=== PATIENT | female | born 1945 | race Caucasian/White ===

== ENCOUNTER 2017-09-28 17:01 | Inpatient (IN) | payer MEDICARE, BC ==
[~2017-09-28] VITALS: Ht 156.2 cm; Wt 47.4 kg
--- NOTE | 2017-09-28 17:20 | PHYS DOC ---
Adult General HPI HPI Patient is a [age] year old [sex] who presents with [] Review of Systems Review of Systems Constitutional: Denies fever or chills [] Eyes: Denies change in visual acuity, redness, or eye pain [] HENT: Denies nasal congestion or sore throat [] Respiratory: Denies cough or shortness of breath [] Cardiovascular: No additional information not addressed in HPI [] GI: Denies abdominal pain, nausea, vomiting, bloody stools or diarrhea [] : Denies dysuria or hematuria [] Musculoskeletal: Denies back pain or joint pain [] Integument: Denies rash or skin lesions [] Neurologic: Denies headache, focal weakness or sensory changes [] Endocrine: Denies polyuria or polydipsia [] All other systems were reviewed and found to be within normal limits, except as documented in this note. Physical Exam Physical Exam Constitutional: Well developed, well nourished, no acute distress, non-toxic appearance. [] HENT: Normocephalic, atraumatic, bilateral external ears normal, oropharynx moist, no oral exudates, nose normal. [] Eyes: PERRLA, EOMI, conjunctiva normal, no discharge. [] Neck: Normal range of motion, no tenderness, supple, no stridor. [] Cardiovascular:Heart rate regular rhythm, no murmur [] Lungs & Thorax: Bilateral breath sounds clear to auscultation [] Abdomen: Bowel sounds normal, soft, no tenderness, no masses, no pulsatile masses. [] Skin: Warm, dry, no erythema, no rash. [] Back: No tenderness, no CVA tenderness. [] Extremities: No tenderness, no cyanosis, no clubbing, ROM intact, no edema. [] Neurologic: Alert and oriented X 3, normal motor function, normal sensory function, no focal deficits noted. [] Psychologic: Affect normal, judgement normal, mood normal. [] EKG EKG [] Radiology/Procedures Radiology/Procedures [] Course & Med Decision Making Course & Med Decision Making Pertinent Labs and Imaging studies reviewed. (See chart for details) [] Dragon Disclaimer Dragon Disclaimer This electronic medical record was generated, in whole or in part, using a voice recognition dictation system. Departure Departure: Referrals: PCP,UNKNOWN (PCP) CATERINA HOLBROOK MD Sep 28, 2017 17:19
[2017-09-28 18:07] LABS: BASO % 1 % (0-3); EOS % 1 % (0-3); HEMATOCRIT 38.8 % (36.0-47.0); LYMPH # 0.7 x10^3/uL (1.0-4.8); LYMPH % 19 % (24-48); MEAN CORPUSCULAR HEMOGLOBIN 34 pg (25-35); MEAN CORPUSCULAR HGB CONC 33 g/dL (31-37); MEAN CORPUSCULAR VOLUME 102 fL (79-100); MONO # 0.5 x10^3/uL (0.0-1.1); MONO % 13 % (0-9); NEUT # 2.4 x10^3uL (1.8-7.7); NEUT % 66 % (31-73); PLATELET COUNT 239 x10^3/uL (140-400); RED CELL DISTRIBUTION WIDTH 14.2 % (11.5-14.5); WHITE BLOOD COUNT 3.6 x10^3/uL (4.0-11.0)
[2017-09-28 18:16] LABS: ALBUMIN 3.8 g/dL (3.4-5.0); BILIRUBIN,URINE NEG (NEG); CALCIUM 9.2 mg/dL (8.5-10.1); CLARITY,URINE HAZY; COLOR,URINE YELLOW; CREATININE 0.6 mg/dL (0.6-1.0); GFR 98.3; GLUCOSE,URINE NEG (NEG); POTASSIUM 3.9 mmol/L (3.5-5.1); TOTAL BILIRUBIN 0.5 mg/dL (0.2-1.0); TOTAL PROTEIN 7.6 g/dL (6.4-8.2)
[2017-09-28 18:17] LABS: BACTERIA,URINE 0 /HPF (0-FEW); NITRITE,URINE NEG (NEG); SQUAMOUS EPITHELIAL CELL,UR FEW /LPF; UROBILINOGEN,URINE 0.2 mg/dL (0.2 mg/dL)
[2017-09-28 20:15] VITALS: BP 138/63
[2017-09-28] MEDS ORDERED: METHYL SALICYLATE/MENTHOL TOPICAL OINTMENT 29GM TUBE. TP PRN (20:45)
[2017-09-28] MEDS ORDERED: MAG HYDROX/AL HYDROX/SIMETH 30 ML ORAL.SUSP PO PRN (20:45)
[2017-09-28] MEDS ORDERED: POLY17PO5 PO (21:23)
[2017-09-28] MEDS ORDERED: POTA20TA4 PO (21:23)
[2017-09-28] MEDS ORDERED: SUCR1TAB PO (21:23)
[2017-09-28] MEDS ORDERED: CHLO1CAP PO (21:23)
[2017-09-28] MEDS ORDERED: ESCITALOPRAM OX20 MG PO (21:23)
[2017-09-28] MEDS ORDERED: MIRT15TA3 PO (21:23)
[2017-09-28] MEDS ORDERED: ALPR0.5T6 PO (21:23)
[2017-09-28] MEDS ORDERED: PANT40TA5 PO (21:23)
[2017-09-28] MEDS ORDERED: METO10TA81 PO (21:23)
[2017-09-28] MEDS ORDERED: OXYC5CAP PO (21:23)
[2017-09-28] MEDS: MAGNESIUM HYDROXIDE 2,400 MG/30 ML ORAL.SUSP. PO PRN (21:29)
[2017-09-28] MEDS: ACETAMINOPHEN 325 MG TABLET PO PRN (21:29)
[2017-09-28] MEDS: MIRTAZAPINE 15 MG TABLET PO SCH (22:18)
--- NOTE | 2017-09-29 00:23 | PHYS DOC ---
General Chief Complaint: MEDICAL CLEARANCE Stated Complaint: EVAL Time Seen by MD: 18:23 Source: patient, family Exam Limitations: no limitations Problems: History of Present Illness Initial Comments Patient signed out to me at 1800 shift change. Patient is a 72-year-old female who comes to the emergency department for medical clearance and [facility] admission. Patient states that she was seen by Dr. Peterson in his office earlier today and after discussion of patient's severe anxiety and need for medication changes and titrations the patient agreed to inpatient admission. She's been taking chlordiazepoxide, escitalopram, alprazolam, and mirtazapine reportedly not always as directed. In the emergency department and her only complaint is severe anxiety denies any physical complaints. Timing/Duration: other Severity: severe Modifying Factors: worse with medication Associated Symptoms: other Allergies: Coded Allergies: No Known Drug Allergies (Unverified , 09/28/17) Past Medical History Medical History: other (depression, GERD, anxiety, hypokalemia, chronic pain, constipation) Surgical History: noncontributory Social History Smoker: non-smoker Alcohol: none Drugs: none Review of Systems Constitutional: denies chills, denies fever Respiratory: denies cough, denies shortness of breath Cardiovascular: denies chest pain, denies syncope Gastrointestinal: see HPI, denies diarrhea, denies vomiting Genitourinary: denies dysuria, frequency, denies hematuria Musculoskeletal: see HPI Psychiatric/Neurological: see HPI Physical Exam General Appearance: WD/WN, no apparent distress Ear, Nose, Throat: hearing grossly normal, normal ENT inspection Neck: non-tender, supple Respiratory: normal breath sounds, no respiratory distress Cardiovascular: normal peripheral pulses, regular rate, rhythm Gastrointestinal: non tender, soft Back: no CVA tenderness, no vertebral tenderness Extremities: normal range of motion, non-tender Neurologic/Psychiatric: health information manager II-XII nml as tested, no motor/sensory deficits, alert, oriented x 3, other (anxious) Skin: normal color, warm/dry Orders, Labs, Meds Pertinent labs: AST 47, ALT 71, urinalysis grossly positive for products of infection Bactrim DS one tablet by mouth ordered for UTI, patient medically cleared for [facility] admission. Due to high ED volume the patient was mistakenly medically cleared before EKG was obtained in the emergency department. It remains ordered and will be obtained on the floor. Impression Severe anxiety Medication noncompliance Departure Disposition: ADMITTED INPATIENT Diagnosis: anxiety, medication noncompliance Condition: STABLE BOBBY OMALLEY DO Sep 29, 2017 00:23
[2017-09-29] MEDS ORDERED: SMZ/TMP 800/160MG TABLET. PO ONE (01:30)
[2017-09-29] MEDS: ACETAMINOPHEN 325 MG TABLET PO PRN (03:19)
[2017-09-29] MEDS: ALPRAZolam 0.5 MG TABLET PO PRN ×3 (03:20→17:05)
[2017-09-29 05:40] VITALS: BP 104/67
--- NOTE | 2017-09-29 08:34 | PDOC1 ---
History of Present Illness Reason for Visit: Anxiety History of Present Illness Pt sent to [facility] unit for eval/tx of worsening anxiety by her primary psychiatrist Dr. Peterson. She was sent directly from his office. She has a hx of gastroparesis and GERD, and wants to make sure she gets those medications. She has no complaints today, and specifically denies SANCHEZ, dizziness, blurry vision, chest pain, SOA, n/v, diarrhea, blood in stool or urine, leg pain, fever , weakness, numbness, or rash. She is getting ready to eat breakfast. She asked about possibly calling out later. Per nursing, she has been hospitalized at [facility] in the past for similar reasons. Chief Complaint: MEDICAL CLEARANCE Allergies: Coded Allergies: No Known Drug Allergies (Unverified , 09/28/17) Past Medical History GI: Constipation, GERD, Other (Gastroparesis) Psych: Anxiety, Depression Past Surgical History: Total hip replacement (RIGHT), Other (Left breast cancer ) Family History: No pertinent hx Past Social History Smoke: No Alcohol: none Drugs: None Review of Systems Review Of Systems Fourteen system , review of systems has been reviewed. See HPI for pertinent positives and negative responses, other sparks all other systems are negative, non pertinent or non contributory Allergies: Coded Allergies: No Known Drug Allergies (Unverified , 09/28/17) Medications Current Medications Acetaminophen (Tylenol) 650 mg PRN Q6HRS PRN PO PAIN / TEMP Last administered on 09/29/17 03:19; Start 09/28/17 at 20:45 Multi-Ingredient Ointment (Analgesic [place]) 1 declan PRN QID PRN TP MUSCLE PAIN; Start 09/28/17 at 20:45 Al Hydroxide/Mg Hydroxide (Mylanta Plus Xs) 15 ml PRN AFTMEALHC PRN PO DYSPEPSIA; Start 09/28/17 at 20:45 Magnesium Hydroxide (Milk Of Magnesia) 2,400 mg PRN QHS PRN PO CONSTIPATION Last administered on 09/28/17 21:29; Start 09/28/17 at 20:45 Alprazolam (Xanax) 0.5 mg PRN Q4HRS PRN PO ANXIETY / AGITATION Last administered on 09/29/17 03:20; Start 09/28/17 at 21:30 Chlordiazepoxide/ Clidinium (Librax) 1 cap DAILY PO ; Start 09/29/17 at 09:00 Mirtazapine (Remeron) 15 mg QHS PO Last administered on 09/28/17 22:18; Start 09/28/17 at 22:00 Citalopram Hydrobromide (CeleXA) 40 mg DAILY PO ; Start 09/29/17 at 09:00 Trimethoprim/ Sulfamethoxazole (Bactrim Ds) 1 tab 1X ONCE PO Last administered on 09/29/17 01:31; Start 09/29/17 at 01:30; Stop 09/29/17 at 01:31 ; Status DC Active Scripts Active Reported Miralax (Polyethylene Glycol 3350) 17 Gm Powd.pack 17 Gm PO DAILY Klor-Con M20 (Potassium Chloride) 20 Meq Tab.er.prt 20 Meq PO DAILY Librax Capsule (Chlordiazepoxide/Clidinium Br) 1 Each Capsule 1 Each PO DAILY Sucralfate 1 Gm Tablet 1 Gm PO BID Escitalopram Oxalate 20 Mg Tablet 20 Mg PO DAILY Pantoprazole Sodium 40 Mg Tablet.dr 40 Mg PO DAILY Mirtazapine 15 Mg Tablet 15 Mg PO QHS Oxycodone Hcl 5 Mg Capsule 5 Mg PO PRN BID PRN Reglan (Metoclopramide Hcl) 10 Mg Tablet 5 Mg PO TIDACHC Alprazolam 0.5 Mg Tablet 0.5 Mg PO PRN Q4HRS PRN Exam Vital Signs Vital Signs Date Time Temp Pulse Resp B/P (MAP) Pulse Ox O2 Delivery O2 Flow Rate FiO2 09/29/17 05:40 97.6 67 18 104/67 (79) 96 09/28/17 20:15 Room Air General Appearance: Alert, Oriented X3, Cooperative, No acute distress HEENT: Atraumatic, PERRLA, EOMI, Mucous membr. moist/pink, Other (Neck supple, full ROM, no JVD, no LAD, no thyromegaly) Respiratory: Clear to auscultation, Normal air movement Heart: Regular rate, Normal S1, Normal S2, No murmurs Abdominal: Soft, No tenderness, No hepatospenomegaly, No masses Extremities: No edema, Normal pulses, No tenderness/swelling Skin: No rashes, No breakdown Neuro: Normal speech, Strength at 5/5 X4 ext, Normal tone, Sensation intact, Cranial nerves 3-12 NL, Reflexes 2+ Psych/Mental Status: Other (Anxious, jittery) Assessment/Plan Assessment/Plan 1. Anxiety w/ depression, acute exacerbation: Per Dr. Peterson. 2. Hx of OA: Oxycodone PRN per home med. 3. Gastroparesis/GERD: Continue home meds. 4. DVT proph: Pt fully ambulatory, no need for Lovenox. 5. LFT elevation: Mild elevation. Repeat in AM. Consider sonogram. Should have hepatitis panel as outpatient. COURSE Allergies Coded Allergies Type Severity Reaction Last Updated Verified No Known Drug Allergies 09/28/17 No Laboratory Tests Test 09/28/17 17:49 White Blood Count 3.6 x10^3/uL (4.0-11.0) Red Blood Count 3.80 x10^6/uL (3.50-5.40) Hemoglobin 13.0 g/dL (12.0-15.5) Hematocrit 38.8 % (36.0-47.0) Mean Corpuscular Volume 102 fL (79-100) Mean Corpuscular Hemoglobin 34 pg (25-35) Mean Corpuscular Hemoglobin Concent 33 g/dL (31-37) Red Cell Distribution Width 14.2 % (11.5-14.5) Platelet Count 239 x10^3/uL (140-400) Neutrophils (%) (Auto) 66 % (31-73) Lymphocytes (%) (Auto) 19 % (24-48) Monocytes (%) (Auto) 13 % (0-9) Eosinophils (%) (Auto) 1 % (0-3) Basophils (%) (Auto) 1 % (0-3) Neutrophils # (Auto) 2.4 x10^3uL (1.8-7.7) Lymphocytes # (Auto) 0.7 x10^3/uL (1.0-4.8) Monocytes # (Auto) 0.5 x10^3/uL (0.0-1.1) Eosinophils # (Auto) 0.0 x10^3/uL (0.0-0.7) Basophils # (Auto) 0.0 x10^3/uL (0.0-0.2) Urine Collection Type Unknown Urine Color Yellow Urine Clarity Hazy Urine pH 7.0 Urine Specific [place] 1.015 Urine Protein Neg (NEG-TRACE) Urine Glucose (UA) Neg mg/dL (NEG) Urine Ketones (Stick) Neg mg/dL (NEG) Urine Blood Neg (NEG) Urine Nitrite Neg (NEG) Urine Bilirubin Neg (NEG) Urine Urobilinogen Dipstick 0.2 mg/dL (0.2 mg/dL) Urine Leukocyte Esterase Large (NEG) Urine RBC 1-2 /HPF (0-2) Urine WBC 5-10 /HPF (0-4) Urine Squamous Epithelial Cells Few /LPF Urine Bacteria 0 /HPF (0-FEW) Sodium Level 139 mmol/L (136-145) Potassium Level 3.9 mmol/L (3.5-5.1) Chloride Level 101 mmol/L (98-107) Carbon Dioxide Level 32 mmol/L (21-32) Anion Gap 6 (6-14) Blood Urea Nitrogen 14 mg/dL (7-20) Creatinine 0.6 mg/dL (0.6-1.0) Estimated GFR (Cockcroft-Gault) 98.3 BUN/Creatinine Ratio 23 (6-20) Glucose Level 84 mg/dL (70-99) Calcium Level 9.2 mg/dL (8.5-10.1) Magnesium Level 2.0 mg/dL (1.8-2.4) Total Bilirubin 0.5 mg/dL (0.2-1.0) Aspartate Amino Transf (AST/SGOT) 47 U/L (15-37) Alanine Aminotransferase (ALT/SGPT) 71 U/L (14-59) Alkaline Phosphatase 71 U/L (46-116) Total Protein 7.6 g/dL (6.4-8.2) Albumin 3.8 g/dL (3.4-5.0) Albumin/Globulin Ratio 1.0 (1.0-1.7) Current Medications Medications (Trade) Dose Ordered Sig/Tushar Route PRN Reason Start Time Stop Time Status Last Admin Dose Admin Acetaminophen (Tylenol) 650 mg PRN Q6HRS PRN PO PAIN / TEMP 09/28/17 20:45 09/29/17 03:19 Multi-Ingredient Ointment (Analgesic [place]) 1 declan PRN QID PRN TP MUSCLE PAIN 09/28/17 20:45 Al Hydroxide/Mg Hydroxide (Mylanta Plus Xs) 15 ml PRN AFTMEALHC PRN PO DYSPEPSIA 09/28/17 20:45 Magnesium Hydroxide (Milk Of Magnesia) 2,400 mg PRN QHS PRN PO CONSTIPATION 09/28/17 20:45 09/28/17 21:29 Alprazolam (Xanax) 0.5 mg PRN Q4HRS PRN PO ANXIETY / AGITATION 09/28/17 21:30 09/29/17 03:20 Chlordiazepoxide/ Clidinium (Librax) 1 cap DAILY PO 09/29/17 09:00 Mirtazapine (Remeron) 15 mg QHS PO 09/28/17 22:00 09/28/17 22:18 Citalopram Hydrobromide (CeleXA) 40 mg DAILY PO 09/29/17 09:00 Trimethoprim/ Sulfamethoxazole (Bactrim Ds) 1 tab 1X ONCE PO 09/29/17 01:30 09/29/17 01:31 DC 09/29/17 01:31 I & O 09/29/17 00:00 Intake Total 120 ml Balance 120 ml Vital Signs Date Time Temp Pulse Resp B/P (MAP) Pulse Ox O2 Delivery O2 Flow Rate FiO2 09/29/17 05:40 97.6 67 18 104/67 (79) 96 09/28/17 20:15 Room Air EKG: NSR, no ischemic changes KAYODE PATTERSON MD Sep 29, 2017 08:34
[2017-09-29] MEDS ORDERED: oxyCODONE IR 5 MG TABLET PO PRN (08:45)
[2017-09-29] MEDS: METOCLOPRAMIDE 5 MG TABLET PO SCH ×4 (08:53→20:24)
[2017-09-29] MEDS: PANTOPRAZOLE 40 MG TABLET. PO SCH (08:54)
[2017-09-29] MEDS: POTASSIUM CHLORIDE 20 MEQ TABLET.ER. PO SCH (08:55)
[2017-09-29] MEDS: POLYETHYLENE GLYCOL 3350 17 GM PACKET. PO SCH (08:55)
[2017-09-29] MEDS ORDERED: CHLORDIAZEPOXIDE PO SCH (09:00)
[2017-09-29] MEDS ORDERED: CLIDINIUM PO SCH (09:00)
[2017-09-29] MEDS ORDERED: CITALOPRAM 20 MG TABLET. PO SCH (09:00)
[2017-09-29] MEDS: SUCRALFATE 1 GM TABLET. PO SCH ×2 (11:47→17:05)
[2017-09-29 14:49] LABS: THYROID STIM HORMONE (TSH) 1.762 uIU/mL (0.358-3.740)
[2017-09-29 15:50] VITALS: BP 112/58
--- NOTE | 2017-09-29 20:21 | PDOC ---
Exam Note: Edwin Note: Please also refer to the separate dictated note~for this date of service dictated separately.~Patient seen individually. Discussed the patient with Nursing staff reviewed the chart.~Reviewed interim history and current functioning. Reviewed vital signs,~Labs/ Radiology~and current medications noted below. Continue current treatment with the changes noted in the dictated addendum note Assessment: Vital Signs: Vital Signs Date Time Temp Pulse Resp B/P (MAP) Pulse Ox O2 Delivery O2 Flow Rate FiO2 09/29/17 15:50 99.0 85 18 112/58 (76) 99 09/28/17 20:15 Room Air I&O Intake and Output 09/29/17 07:00 Intake Total 120 ml Balance 120 ml Intake Oral 120 ml Current Medications: Meds: Current Medications Acetaminophen (Tylenol) 650 mg PRN Q6HRS PRN PO PAIN / TEMP Last administered on 09/29/17 03:19; Start 09/28/17 at 20:45 Multi-Ingredient Ointment (Analgesic [place]) 1 declan PRN QID PRN TP MUSCLE PAIN; Start 09/28/17 at 20:45 Al Hydroxide/Mg Hydroxide (Mylanta Plus Xs) 15 ml PRN AFTMEALHC PRN PO DYSPEPSIA; Start 09/28/17 at 20:45 Magnesium Hydroxide (Milk Of Magnesia) 2,400 mg PRN QHS PRN PO CONSTIPATION Last administered on 09/28/17 21:29; Start 09/28/17 at 20:45 Alprazolam (Xanax) 0.5 mg PRN Q4HRS PRN PO ANXIETY / AGITATION Last administered on 09/29/17 17:05; Start 09/28/17 at 21:30 Chlordiazepoxide/ Clidinium (Librax) 1 cap DAILY PO Last administered on 11:45; Start 09/29/17 at 09:00 Mirtazapine (Remeron) 15 mg QHS PO Last administered on 09/28/17 22:18; Start 09/28/17 at 22:00 Citalopram Hydrobromide (CeleXA) 40 mg DAILY PO Last administered on 09/29/17 08:55; Start 09/29/17 at 09:00; Stop 09/29/17 at 19:38; Status DC Trimethoprim/ Sulfamethoxazole (Bactrim Ds) 1 tab 1X ONCE PO Last administered on 09/29/17 01:31; Start 09/29/17 at 01:30; Stop 09/29/17 at 01:31 ; Status DC Metoclopramide HCl (Reglan) 5 mg TIDACHC PO Last administered on 09/29/17 17: 04; Start 09/29/17 at 08:45 Pantoprazole Sodium (Protonix) 40 mg DAILYAC PO Last administered on 09/29/17 08:54; Start 09/29/17 at 09:00 Polyethylene Glycol (miraLAX) 17 gm DAILY PO Last administered on 09/29/17 08: 55; Start 09/29/17 at 09:00 Potassium Chloride (Klor-Con) 20 meq DAILY PO Last administered on 09/29/17 08 :55; Start 09/29/17 at 09:00 Sucralfate (Carafate) 1 gm BIDBFRMEAL PO Last administered on 09/29/17 17:05; Start 09/29/17 at 11:00 Oxycodone HCl (Roxicodone) 5 mg PRN BID PRN PO PAIN; Start 09/29/17 at 08:45 Quetiapine Fumarate (SEROquel) 12.5 mg BID92 PO ; Start 09/30/17 at 09:00 Duloxetine HCl (Cymbalta) 30 mg DAILY PO ; Start 09/30/17 at 09:00 Active Scripts Active Reported Miralax (Polyethylene Glycol 3350) 17 Gm Powd.pack 17 Gm PO DAILY Klor-Con M20 (Potassium Chloride) 20 Meq Tab.er.prt 20 Meq PO DAILY Librax Capsule (Chlordiazepoxide/Clidinium Br) 1 Each Capsule 1 Each PO DAILY Sucralfate 1 Gm Tablet 1 Gm PO BID Escitalopram Oxalate 20 Mg Tablet 20 Mg PO DAILY Pantoprazole Sodium 40 Mg Tablet.dr 40 Mg PO DAILY Mirtazapine 15 Mg Tablet 15 Mg PO QHS Oxycodone Hcl 5 Mg Capsule 5 Mg PO PRN BID PRN Reglan (Metoclopramide Hcl) 10 Mg Tablet 5 Mg PO TIDACHC Alprazolam 0.5 Mg Tablet 0.5 Mg PO PRN Q4HRS PRN I have reviewed the current psychotropics carefully including drug interactions. Risk benefit ratio favors no change other than as noted in my dictated progress note. Diagnosis: Problems: (1) Anxiety disorder (2) Impulse control disorder MELISSA BASHIR MD Sep 29, 2017 20:21
[2017-09-29] MEDS: MIRTAZAPINE 15 MG TABLET PO SCH (20:23)
[2017-09-29] MEDS: CLIDINIUM PO SCH (21:13)
[2017-09-29] MEDS: CHLORDIAZEPOXIDE PO SCH (21:13)
[2017-09-29 23:10] LABS: HEMOGLOBIN A1C 4.9 % (4.8-5.6)
[2017-09-30] MEDS: ALPRAZolam 0.5 MG TABLET PO PRN ×2 (01:00→09:59)
[2017-09-30 05:57] VITALS: BP 121/67
[2017-09-30 06:41] LABS: ALBUMIN 3.5 g/dL (3.4-5.0); DIRECT BILIRUBIN 0.2 mg/dL (0.0-0.2); TOTAL BILIRUBIN 0.8 mg/dL (0.2-1.0); TOTAL PROTEIN 6.8 g/dL (6.4-8.2)
[2017-09-30] MEDS: METOCLOPRAMIDE 5 MG TABLET PO SCH ×4 (07:35→19:43)
[2017-09-30] MEDS: PANTOPRAZOLE 40 MG TABLET. PO SCH (07:35)
[2017-09-30] MEDS: SUCRALFATE 1 GM TABLET. PO SCH ×2 (07:35→16:49)
[2017-09-30] MEDS: POTASSIUM CHLORIDE 20 MEQ TABLET.ER. PO SCH (07:36)
[2017-09-30] MEDS: POLYETHYLENE GLYCOL 3350 17 GM PACKET. PO SCH (07:36)
[2017-09-30] MEDS: DULoxetine HCL 30 MG CAPSULE.DR PO SCH (07:38)
[2017-09-30] MEDS: CHLORDIAZEPOXIDE PO SCH ×3 (07:38→21:00)
[2017-09-30] MEDS: CLIDINIUM PO SCH ×3 (07:38→21:00)
[2017-09-30] MEDS: QUEtiapine 25 MG TABLET. PO SCH ×2 (07:38→13:15)
[2017-09-30 09:08] LABS: T3 TOTAL 83 ng/dL (71-180); THYROXINE 6.8 ug/dL (4.5-12.0)
[2017-09-30] MEDS: ONDANSETRON ODT 4 MG TAB.RAPDIS PO SCH ×4 (09:59→19:43)
--- NOTE | 2017-09-30 13:07 | EKG ---
[address] [address] Test Date: 2017-09-29 Test Time: 06:53:42 Pat Name: CLAY TRAN Department: Room: [address] [place] [address] Gender: Instruction Dean: : 1945 Requested By: MELISSA BASHIR Order Number: [id number] Reading MD: Nicholas Mercado MD Measurements Intervals [place] Rate: P: [place]: QRS: QRSD: T: QT: QTc: Interpretive Statements NSR Electronically Signed On 10-03-2017 15:34:27 [employer]MINISTRATIVE [employer]NAL [employer]BER by Nicholas Mercado MD
[2017-09-30 16:28] VITALS: BP 116/64
[2017-09-30] MEDS: MIRTAZAPINE 15 MG TABLET PO SCH (19:42)
[2017-09-30] MEDS: MAGNESIUM HYDROXIDE 2,400 MG/30 ML ORAL.SUSP. PO PRN (20:01)
--- NOTE | 2017-09-30 21:46 | PDOC ---
Exam Note: Edwin Note: Please also refer to the separate dictated note~for this date of service dictated separately.~Patient seen individually. Discussed the patient with Nursing staff reviewed the chart.~Reviewed interim history and current functioning. Reviewed vital signs,~Labs/ Radiology~and current medications noted below. Continue current treatment with the changes noted in the dictated addendum note Assessment: Vital Signs: Vital Signs Date Time Temp Pulse Resp B/P (MAP) Pulse Ox O2 Delivery O2 Flow Rate FiO2 09/30/17 16:28 98.2 94 18 116/64 (81) 97 09/28/17 20:15 Room Air I&O Intake and Output 09/30/17 07:00 Intake Total 720 ml Balance 720 ml Intake Oral 720 ml Labs: Laboratory Tests Test 09/30/17 06:10 Total Bilirubin 0.8 mg/dL (0.2-1.0) Direct Bilirubin 0.2 mg/dL (0.0-0.2) Aspartate Amino Transferase (AST) 29 U/L (15-37) Alanine Aminotransferase (ALT) 51 U/L (14-59) Alkaline Phosphatase 60 U/L (46-116) Total Protein 6.8 g/dL (6.4-8.2) Albumin 3.5 g/dL (3.4-5.0) Current Medications: Meds: Current Medications Acetaminophen (Tylenol) 650 mg PRN Q6HRS PRN PO PAIN / TEMP Last administered on 09/29/17 03:19; Start 09/28/17 at 20:45 Multi-Ingredient Ointment (Analgesic [place]) 1 declan PRN QID PRN TP MUSCLE PAIN; Start 09/28/17 at 20:45 Al Hydroxide/Mg Hydroxide (Mylanta Plus Xs) 15 ml PRN AFTMEALHC PRN PO DYSPEPSIA; Start 09/28/17 at 20:45 Magnesium Hydroxide (Milk Of Magnesia) 2,400 mg PRN QHS PRN PO CONSTIPATION Last administered on 09/30/17 20:01; Start 09/28/17 at 20:45 Alprazolam (Xanax) 0.5 mg PRN Q4HRS PRN PO ANXIETY / AGITATION Last administered on 09/30/17 09:59; Start 09/28/17 at 21:30 Chlordiazepoxide/ Clidinium (Librax) 1 cap DAILY PO Last administered on 11:45; Start 09/29/17 at 09:00; Stop 09/29/17 at 20:22; Status DC Mirtazapine (Remeron) 15 mg QHS PO Last administered on 09/30/17 19:42; Start 09/28/17 at 22:00 Citalopram Hydrobromide (CeleXA) 40 mg DAILY PO Last administered on 09/29/17 08:55; Start 09/29/17 at 09:00; Stop 09/29/17 at 19:38; Status DC Trimethoprim/ Sulfamethoxazole (Bactrim Ds) 1 tab 1X ONCE PO Last administered on 09/29/17 01:31; Start 09/29/17 at 01:30; Stop 09/29/17 at 01:31 ; Status DC Metoclopramide HCl (Reglan) 5 mg TIDACHC PO Last administered on 09/30/17 19: 43; Start 09/29/17 at 08:45 Pantoprazole Sodium (Protonix) 40 mg DAILYAC PO Last administered on 09/30/17 07:35; Start 09/29/17 at 09:00 Polyethylene Glycol (miraLAX) 17 gm DAILY PO Last administered on 09/30/17 07: 36; Start 09/29/17 at 09:00 Potassium Chloride (Klor-Con) 20 meq DAILY PO Last administered on 09/30/17 07 :36; Start 09/29/17 at 09:00 Sucralfate (Carafate) 1 gm BIDBFRMEAL PO Last administered on 09/30/17 16:49; Start 09/29/17 at 11:00 Oxycodone HCl (Roxicodone) 5 mg PRN BID PRN PO PAIN; Start 09/29/17 at 08:45 Quetiapine Fumarate (SEROquel) 12.5 mg BID92 PO Last administered on 09/30/17 13:15; Start 09/30/17 at 09:00 Duloxetine HCl (Cymbalta) 30 mg DAILY PO Last administered on 09/30/17 07:38; Start 09/30/17 at 09:00 Chlordiazepoxide/ Clidinium (Librax) 1 cap TID PO Last administered on 12/2/ 17at 13:14; Start 09/29/17 at 21:00; Stop 09/30/17 at 18:43; Status DC Ondansetron HCl (Zofran Odt) 4 mg Q4HRS PO Last administered on 09/30/17t 19:43 ; Start 09/30/17 at 10:00 Chlordiazepoxide/ Clidinium (Librax) 1 cap BID PO ; Start 09/30/17 at 21:00; Stop 10/03/17 at 20:59; Status UNV Chlordiazepoxide/ Clidinium (Librax) 1 cap DAILY PO ; Start 10/04/17 at 09:00; Stop 10/07/17 at 08:59; Status UNV Active Scripts Active Reported Miralax (Polyethylene Glycol 3350) 17 Gm Powd.pack 17 Gm PO DAILY Klor-Con M20 (Potassium Chloride) 20 Meq Tab.er.prt 20 Meq PO DAILY Librax Capsule (Chlordiazepoxide/Clidinium Br) 1 Each Capsule 1 Each PO DAILY Sucralfate 1 Gm Tablet 1 Gm PO BID Escitalopram Oxalate 20 Mg Tablet 20 Mg PO DAILY Pantoprazole Sodium 40 Mg Tablet.dr 40 Mg PO DAILY Mirtazapine 15 Mg Tablet 15 Mg PO QHS Oxycodone Hcl 5 Mg Capsule 5 Mg PO PRN BID PRN Reglan (Metoclopramide Hcl) 10 Mg Tablet 5 Mg PO TIDACHC Alprazolam 0.5 Mg Tablet 0.5 Mg PO PRN Q4HRS PRN I have reviewed the current psychotropics carefully including drug interactions. Risk benefit ratio favors no change other than as noted in my dictated progress note. Diagnosis: Problems: (1) Anxiety disorder (2) Impulse control disorder MELISSA BASHIR MD Sep 30, 2017 21:46
[2017-10-01] MEDS: ONDANSETRON ODT 4 MG TAB.RAPDIS PO SCH ×7 (00:18→23:17)
[2017-10-01 05:49] VITALS: BP 111/63
[2017-10-01] MEDS: DULoxetine HCL 30 MG CAPSULE.DR PO SCH (07:28)
[2017-10-01] MEDS: PANTOPRAZOLE 40 MG TABLET. PO SCH (07:28)
[2017-10-01] MEDS: QUEtiapine 25 MG TABLET. PO SCH ×2 (07:28→15:18)
[2017-10-01] MEDS: SUCRALFATE 1 GM TABLET. PO SCH ×3 (07:28→19:57)
[2017-10-01] MEDS: POTASSIUM CHLORIDE 20 MEQ TABLET.ER. PO SCH (07:28)
[2017-10-01] MEDS: ALPRAZolam 0.5 MG TABLET PO PRN ×3 (07:28→23:17)
[2017-10-01] MEDS: POLYETHYLENE GLYCOL 3350 17 GM PACKET. PO SCH (07:29)
[2017-10-01] MEDS: METOCLOPRAMIDE 5 MG TABLET PO SCH ×4 (07:29→20:00)
[2017-10-01] MEDS: CHLORDIAZEPOXIDE PO SCH ×2 (07:31→20:02)
[2017-10-01] MEDS: CLIDINIUM PO SCH ×2 (07:31→20:02)
--- NOTE | 2017-10-01 13:50 | HP ---
ADMIT DATE: 09/29/2017 PSYCHIATRIC ADMISSION HISTORY/EVALUATION This is late entry, date of service 09/29 covers elements not covered in my initial note, 09/29. IDENTIFYING DATA: The patient is a 72-year-old female who I have followed at my office for the past 15-20 years. I have had repeated calls through the answering service as an emergency on account of worsening anxiety. She has been taking excessive amounts of Xanax to stabilize anxiety, panic. She has been withdrawn, depressed, isolative, unable to come out of her home because of symptoms of agoraphobia, increasingly depressed, more confused. After several telephone calls and visits at the office, I last saw her at the office on 09/28 and she been hospitalized for clarification and stabilization on her psychotropics. CHIEF COMPLAINT: "I have had intense anxiety. I can't get out of the home," according to the patient. According to her significant other, she sits on the bed all day. She does not do anything. She is anxious just cannot make it. We may have to have her live in a different place. HISTORY OF PRESENT ILLNESS: The patient has a long history of depression, panic anxiety, agoraphobia and some psychotic symptoms. She has had some mood swings, but no clear history of bipolar disorder. She has had several inpatient psychiatric hospitalizations at [facility] in an attempt to stabilize all of this. She called me as an emergency through the answering service a couple of days prior to admission. We made further adjustments in her psychotropics, all of which have failed resulting in this referral after I saw her at the office on 09/28. PAST PSYCHIATRIC HISTORY: As noted above. PAST MEDICAL HISTORY: Current UTI, found in the ER, status post right hip replacement, left breast cancer, gastroparesis. She is a former smoker. DIET: Regular. No raw vegetables or fruit. Takes her medications whole. Ambulates ad zane with walker. ALLERGIES: Negative. CODE STATUS: Full code. CURRENT PSYCHOTROPICS: Xanax 0.5 mg q. 4 hours p.r.n., Remeron 15 mg at bedtime, Lexapro 20 mg a day and she is on Librax, but doses is unclear, attempts are being made to clarify it. FAMILY HISTORY: Noncontributory. SOCIAL HISTORY: The patient lives with her significant other who is in the construction business. She had been doing his accounts but for the past several weeks has total inability to do this and is barely functional at home. MENTAL STATUS EXAMINATION: Speech is somewhat slurred. Affect is mood congruent and depressed, anxious. Intellect average. Insight good. Judgment intact to standard questioning. Attention span short, language function intact. No clear suicidal or homicidal ideation. LABORATORY DATA: Reviewed. IMPRESSION: Major depressive disorder, recurrent, severe panic disorder with agoraphobia, anxiety disorder, unspecified; urinary tract infection. Rest diagnosis is as above. PLAN: Admit to geropsychiatry unit at [facility]. I will see the patient daily individually from a psychiatric standpoint. Medical followup per Dr. Lai/Dr. Duncan. Continue the patient on her current psychotropics, change the Lexapro to Cymbalta 30 mg a day, increasing to 60 mg a day. Treat the UTI. Clarify the Librax dosage and taper and stop it. Start Seroquel as a mood stabilizer and to augment the antidepressant, help reduce the use of benzodiazepines. Further adjustments will be made depending on her progress. MELISSA BASHIR MD DR: CARRILLO/praful JOB#: [id number] / [id number]
[2017-10-01 16:11] VITALS: BP 131/73
--- NOTE | 2017-10-01 18:55 | PN ---
DATE: 09/30/2017 This late entry, date of service 09/30/2017, covers elements not covered in my initial note 09/30/2017. SUBJECTIVE: The patient was seen individually evening of 09/30/2017. She slept 6-1/4 hours previous night. Family visited her for lunch. She has been anxious, but less sedated and less slurred speech than what it was when I saw her in the office and at the time of her admission. She does have a UTI. We have made many attempts to clarify her psychotropics since she is on combination of Xanax and Librax __ 5/2.5 one tablet 3 times a day. We had to call [facility] pharmacy in [place] amongst other things including calling her significant other repeatedly to clarify. [facility] pharmacy shared that she gets prescriptions for many different physicians and often patient and her significant other are unaware of exactly what she is taking. Her anxiety has been significant, fairly out of control, and she has a tendency to take excessive benzodiazepine all with little relief other than causing further gait imbalance and slurred speech, but this hospitalization was solely indicated to clarify all her psychotropics. She additionally does have a UTI. REVIEW OF SYSTEMS: Positive for vague somatic symptoms, ongoing anxiety. No CV, , pulmonary, eye, ENT system symptoms on review. MENTAL STATUS EXAM: Reasonably oriented. Speech is coherent, abstraction fair, computation impaired, language function intact, attention span short. Mood and affect remains somewhat anxious, but less slurred speech. LABORATORY DATA: Reviewed. IMPRESSION: Major depressive disorder, recurrent, generalized anxiety disorder, panic disorder with agoraphobia. Rest unchanged from admission including urinary tract infection. PLAN: The patient has been taking an average of 5 Xanax a day, may be more. We will go ahead and taper the Librax from t.i.d. to twice a day for 3 days, then once a day for 3 days, then stop it. She has been started on Seroquel 12.5 mg 9:00 and 2:00. We changed the Lexapro, which was initially auto-substituted for Celexa 40 mg a day, to Cymbalta 30 mg a day with a plan to increase it in due course. Reviewed drug interactions. Risk/benefit ratio favors no further change. MAN Scooter BASHIR MD DR: CARRILLO/praful JOB#: [id number] / [id number]
[2017-10-01] MEDS: MIRTAZAPINE 15 MG TABLET PO SCH (19:57)
--- NOTE | 2017-10-01 19:59 | PDOC ---
Exam Note: Edwin Note: Please also refer to the separate dictated note~for this date of service dictated separately.~Patient seen individually. Discussed the patient with Nursing staff reviewed the chart.~Reviewed interim history and current functioning. Reviewed vital signs,~Labs/ Radiology~and current medications noted below. Continue current treatment with the changes noted in the dictated addendum note Assessment: Vital Signs: Vital Signs Date Time Temp Pulse Resp B/P (MAP) Pulse Ox O2 Delivery O2 Flow Rate FiO2 10/01/17 16:11 97.6 70 18 131/73 (92) 100 09/28/17 20:15 Room Air I&O Intake and Output 10/01/17 07:00 Intake Total 720 ml Balance 720 ml Intake Oral 720 ml Current Medications: Meds: Current Medications Acetaminophen (Tylenol) 650 mg PRN Q6HRS PRN PO PAIN / TEMP Last administered on 09/29/17 03:19; Start 09/28/17 at 20:45 Multi-Ingredient Ointment (Analgesic [place]) 1 declan PRN QID PRN TP MUSCLE PAIN; Start 09/28/17 at 20:45 Al Hydroxide/Mg Hydroxide (Mylanta Plus Xs) 15 ml PRN AFTMEALHC PRN PO DYSPEPSIA; Start 09/28/17 at 20:45 Magnesium Hydroxide (Milk Of Magnesia) 2,400 mg PRN QHS PRN PO CONSTIPATION Last administered on 09/30/17 20:01; Start 09/28/17 at 20:45 Alprazolam (Xanax) 0.5 mg PRN Q4HRS PRN PO ANXIETY / AGITATION Last administered on 10/01/17 16:26; Start 09/28/17 at 21:30 Chlordiazepoxide/ Clidinium (Librax) 1 cap DAILY PO Last administered on 11:45; Start 09/29/17 at 09:00; Stop 09/29/17 at 20:22; Status DC Mirtazapine (Remeron) 15 mg QHS PO Last administered on 09/30/17 19:42; Start 09/28/17 at 22:00 Citalopram Hydrobromide (CeleXA) 40 mg DAILY PO Last administered on 09/29/17 08:55; Start 09/29/17 at 09:00; Stop 09/29/17 at 19:38; Status DC Trimethoprim/ Sulfamethoxazole (Bactrim Ds) 1 tab 1X ONCE PO Last administered on 09/29/17 01:31; Start 09/29/17 at 01:30; Stop 09/29/17 at 01:31 ; Status DC Metoclopramide HCl (Reglan) 5 mg TIDACHC PO Last administered on 10/01/17 15: 19; Start 09/29/17 at 08:45 Pantoprazole Sodium (Protonix) 40 mg DAILYAC PO Last administered on 10/01/17 07:28; Start 09/29/17 at 09:00 Polyethylene Glycol (miraLAX) 17 gm DAILY PO Last administered on 10/01/17 07: 29; Start 09/29/17 at 09:00 Potassium Chloride (Klor-Con) 20 meq DAILY PO Last administered on 10/01/17 07 :28; Start 09/29/17 at 09:00 Sucralfate (Carafate) 1 gm BIDBFRMEAL PO Last administered on 10/01/17 15:18; Start 09/29/17 at 11:00 Oxycodone HCl (Roxicodone) 5 mg PRN BID PRN PO PAIN; Start 09/29/17 at 08:45 Quetiapine Fumarate (SEROquel) 12.5 mg BID92 PO Last administered on 10/01/17 15:18; Start 09/30/17 at 09:00 Duloxetine HCl (Cymbalta) 30 mg DAILY PO Last administered on 10/01/17 07:28; Start 09/30/17 at 09:00 Chlordiazepoxide/ Clidinium (Librax) 1 cap TID PO Last administered on 13:14; Start 09/29/17 at 21:00; Stop 09/30/17 at 18:43; Status DC Ondansetron HCl (Zofran Odt) 4 mg Q4HRS PO Last administered on 10/01/17 15:17 ; Start 09/30/17 at 10:00 Chlordiazepoxide/ Clidinium (Librax) 1 cap BID PO Last administered on 07:31; Start 09/30/17 at 21:00; Stop 10/03/17 at 20:59 Chlordiazepoxide/ Clidinium (Librax) 1 cap DAILY PO ; Start 10/04/17 at 09:00; Stop 10/07/17 at 08:59 Active Scripts Active Reported Miralax (Polyethylene Glycol 3350) 17 Gm Powd.pack 17 Gm PO DAILY Klor-Con M20 (Potassium Chloride) 20 Meq Tab.er.prt 20 Meq PO DAILY Librax Capsule (Chlordiazepoxide/Clidinium Br) 1 Each Capsule 1 Each PO DAILY Sucralfate 1 Gm Tablet 1 Gm PO BID Escitalopram Oxalate 20 Mg Tablet 20 Mg PO DAILY Pantoprazole Sodium 40 Mg Tablet.dr 40 Mg PO DAILY Mirtazapine 15 Mg Tablet 15 Mg PO QHS Oxycodone Hcl 5 Mg Capsule 5 Mg PO PRN BID PRN Reglan (Metoclopramide Hcl) 10 Mg Tablet 5 Mg PO TIDACHC Alprazolam 0.5 Mg Tablet 0.5 Mg PO PRN Q4HRS PRN I have reviewed the current psychotropics carefully including drug interactions. Risk benefit ratio favors no change other than as noted in my dictated progress note. Diagnosis: Problems: (1) Anxiety disorder (2) Impulse control disorder (3) Major depressive disorder, recurrent episode (4) Panic disorder with agoraphobia and severe panic attacks MELISSA BASHIR MD Oct 01, 2017 19:59
[2017-10-02 05:51] VITALS: BP 106/68
[2017-10-02] MEDS: ALPRAZolam 0.5 MG TABLET PO PRN ×2 (07:25→20:40)
[2017-10-02] MEDS: ONDANSETRON ODT 4 MG TAB.RAPDIS PO PRN (07:25)
[2017-10-02] MEDS: PANTOPRAZOLE 40 MG TABLET. PO SCH (07:29)
[2017-10-02] MEDS: METOCLOPRAMIDE 5 MG TABLET PO SCH ×4 (07:29→19:49)
[2017-10-02] MEDS: QUEtiapine 25 MG TABLET. PO SCH ×2 (09:17→13:59)
[2017-10-02] MEDS: POTASSIUM CHLORIDE 20 MEQ TABLET.ER. PO SCH (09:18)
[2017-10-02] MEDS: POLYETHYLENE GLYCOL 3350 17 GM PACKET. PO SCH (09:18)
[2017-10-02] MEDS: DULoxetine HCL 30 MG CAPSULE.DR PO SCH (09:18)
[2017-10-02] MEDS: CHLORDIAZEPOXIDE PO SCH ×2 (09:19→19:49)
[2017-10-02] MEDS: CLIDINIUM PO SCH ×2 (09:19→19:49)
[2017-10-02 15:58] VITALS: BP 113/59
[2017-10-02] MEDS: SUCRALFATE 1 GM TABLET. PO SCH (17:21)
[2017-10-02] MEDS: MIRTAZAPINE 15 MG TABLET PO SCH (19:48)
[2017-10-02] MEDS: CHOLECALCIFEROL (VITAMIN D3) 50,000 UNIT CAPSULE PO SCH (19:49)
--- NOTE | 2017-10-02 19:57 | PDOC ---
Exam Note: Edwin Note: Please also refer to the separate dictated note~for this date of service dictated separately.~Patient seen individually. Discussed the patient with Nursing staff reviewed the chart.~Reviewed interim history and current functioning. Reviewed vital signs,~Labs/ Radiology~and current medications noted below. Continue current treatment with the changes noted in the dictated addendum note Assessment: Vital Signs: Vital Signs Date Time Temp Pulse Resp B/P (MAP) Pulse Ox O2 Delivery O2 Flow Rate FiO2 10/02/17 15:58 98.4 92 20 113/59 (77) 97 09/28/17 20:15 Room Air I&O Intake and Output 10/02/17 07:00 Intake Total 1080 ml Balance 1080 ml Intake Oral 1080 ml Current Medications: Meds: Current Medications Acetaminophen (Tylenol) 650 mg PRN Q6HRS PRN PO PAIN / TEMP Last administered on 09/29/17 03:19; Start 09/28/17 at 20:45 Multi-Ingredient Ointment (Analgesic [place]) 1 declan PRN QID PRN TP MUSCLE PAIN; Start 09/28/17 at 20:45 Al Hydroxide/Mg Hydroxide (Mylanta Plus Xs) 15 ml PRN AFTMEALHC PRN PO DYSPEPSIA; Start 09/28/17 at 20:45 Magnesium Hydroxide (Milk Of Magnesia) 2,400 mg PRN QHS PRN PO CONSTIPATION Last administered on 09/30/17 20:01; Start 09/28/17 at 20:45 Alprazolam (Xanax) 0.5 mg PRN Q4HRS PRN PO ANXIETY / AGITATION Last administered on 10/02/17 07:25; Start 09/28/17 at 21:30 Chlordiazepoxide/ Clidinium (Librax) 1 cap DAILY PO Last administered on 11:45; Start 09/29/17 at 09:00; Stop 09/29/17 at 20:22; Status DC Mirtazapine (Remeron) 15 mg QHS PO Last administered on 10/02/17 19:48; Start 09/28/17 at 22:00 Citalopram Hydrobromide (CeleXA) 40 mg DAILY PO Last administered on 09/29/17 08:55; Start 09/29/17 at 09:00; Stop 09/29/17 at 19:38; Status DC Trimethoprim/ Sulfamethoxazole (Bactrim Ds) 1 tab 1X ONCE PO Last administered on 09/29/17 01:31; Start 09/29/17 at 01:30; Stop 09/29/17 at 01:31 ; Status DC Metoclopramide HCl (Reglan) 5 mg TIDACHC PO Last administered on 10/02/17 19: 49; Start 09/29/17 at 08:45 Pantoprazole Sodium (Protonix) 40 mg DAILYAC PO Last administered on 10/02/17 07:29; Start 09/29/17 at 09:00 Polyethylene Glycol (miraLAX) 17 gm DAILY PO Last administered on 10/02/17 09: 18; Start 09/29/17 at 09:00 Potassium Chloride (Klor-Con) 20 meq DAILY PO Last administered on 10/02/17 09 :18; Start 09/29/17 at 09:00 Sucralfate (Carafate) 1 gm BIDBFRMEAL PO Last administered on 10/02/17 17:21; Start 09/29/17 at 11:00 Oxycodone HCl (Roxicodone) 5 mg PRN BID PRN PO PAIN; Start 09/29/17 at 08:45 Quetiapine Fumarate (SEROquel) 12.5 mg BID92 PO Last administered on 10/02/17 13:59; Start 09/30/17 at 09:00 Duloxetine HCl (Cymbalta) 30 mg DAILY PO Last administered on 10/02/17 09:18; Start 09/30/17 at 09:00; Stop 10/02/17 at 19:09; Status DC Chlordiazepoxide/ Clidinium (Librax) 1 cap TID PO Last administered on 13:14; Start 09/29/17 at 21:00; Stop 09/30/17 at 18:43; Status DC Ondansetron HCl (Zofran Odt) 4 mg Q4HRS PO Last administered on 10/01/17 23:17 ; Start 09/30/17 at 10:00; Stop 10/02/17 at 05:35; Status DC Chlordiazepoxide/ Clidinium (Librax) 1 cap BID PO Last administered on 19:49; Start 09/30/17 at 21:00; Stop 10/03/17 at 20:59 Chlordiazepoxide/ Clidinium (Librax) 1 cap DAILY PO ; Start 10/04/17 at 09:00; Stop 10/07/17 at 08:59 Ondansetron HCl (Zofran Odt) 4 mg PRN Q4HRS PRN PO NAUSEA; Start 10/03/17 at 04 :00; Stop 10/03/17 at 04:00; Status DC Ondansetron HCl (Zofran Odt) 4 mg PRN Q4HRS PRN PO NAUSEA Last administered on 10/02/17 07:25; Start 10/02/17 at 07:30 Vitamin D (Vitamin D3) 50,000 unit WEEKLY PO Last administered on 10/02/17 19: 49; Start 10/02/17 at 20:00 Duloxetine HCl (Cymbalta) 40 mg DAILY PO ; Start 10/03/17 at 09:00 Active Scripts Active Reported Miralax (Polyethylene Glycol 3350) 17 Gm Powd.pack 17 Gm PO DAILY Klor-Con M20 (Potassium Chloride) 20 Meq Tab.er.prt 20 Meq PO DAILY Librax Capsule (Chlordiazepoxide/Clidinium Br) 1 Each Capsule 1 Each PO DAILY Sucralfate 1 Gm Tablet 1 Gm PO BID Escitalopram Oxalate 20 Mg Tablet 20 Mg PO DAILY Pantoprazole Sodium 40 Mg Tablet.dr 40 Mg PO DAILY Mirtazapine 15 Mg Tablet 15 Mg PO QHS Oxycodone Hcl 5 Mg Capsule 5 Mg PO PRN BID PRN Reglan (Metoclopramide Hcl) 10 Mg Tablet 5 Mg PO TIDACHC Alprazolam 0.5 Mg Tablet 0.5 Mg PO PRN Q4HRS PRN I have reviewed the current psychotropics carefully including drug interactions. Risk benefit ratio favors no change other than as noted in my dictated progress note. Diagnosis: Problems: (1) Anxiety disorder (2) Impulse control disorder (3) Major depressive disorder, recurrent episode (4) Panic disorder with agoraphobia and severe panic attacks MELISSA BASHIR MD Oct 02, 2017 19:57
--- NOTE | 2017-10-03 03:47 | PN ---
DATE: 10/01/2017 This is a late entry for date of service 10/01/2017, covers elements not covered in my initial note 10/01/2017. I met with the patient evening of 10/01/2017. The patient slept 6-1/4 hours previous evening, coming out of the room, a little bit more ____ compliant with medications. No GI symptoms noted even though Librax is being tapered. REVIEW OF SYSTEMS: Positive for anxiety. No CV, , pulmonary, eye, ENT system symptoms on review. She still complains of some tremulousness consequent to anxiety. MENTAL STATUS EXAM: Reasonably oriented. Speech is coherent, rapid at times. Abstraction fair, computation impaired, language function intact, attention span short. Mood and affect still somewhat anxious, dysphoric. LABORATORY DATA: Reviewed. IMPRESSION: Unchanged from initial note. PLAN: Continue current psychotropics mentioned in my initial note. Adjust further as clinically indicated. Taper the Librax, may need to increase Cymbalta. Continue Remeron, Xanax p.r.n. along with Seroquel 25 mg twice a day. MELISSA BASHIR MD DR: CARRILLO/praful JOB#: [id number] / [id number]
[2017-10-03] MEDS ORDERED: ONDANSETRON ODT 4 MG TAB.RAPDIS PO PRN (04:00)
[2017-10-03 06:20] VITALS: BP 115/64
[2017-10-03] MEDS: SUCRALFATE 1 GM TABLET. PO SCH ×2 (07:23→16:46)
[2017-10-03] MEDS: PANTOPRAZOLE 40 MG TABLET. PO SCH (07:23)
[2017-10-03] MEDS: METOCLOPRAMIDE 5 MG TABLET PO SCH ×4 (07:25→19:35)
[2017-10-03] MEDS: ALPRAZolam 0.5 MG TABLET PO PRN ×2 (07:32→19:35)
[2017-10-03] MEDS: CLIDINIUM PO SCH (09:33)
[2017-10-03] MEDS: CHLORDIAZEPOXIDE PO SCH (09:33)
[2017-10-03] MEDS: POTASSIUM CHLORIDE 20 MEQ TABLET.ER. PO SCH (09:34)
[2017-10-03] MEDS: POLYETHYLENE GLYCOL 3350 17 GM PACKET. PO SCH (09:35)
[2017-10-03] MEDS: QUEtiapine 25 MG TABLET. PO SCH ×2 (09:35→13:42)
[2017-10-03] MEDS: DULoxetine HCL 20 MG CAPSULE.DR PO SCH (09:37)
[2017-10-03 15:08] VITALS: BP 96/60
[2017-10-03] MEDS: MIRTAZAPINE 15 MG TABLET PO SCH (19:35)
--- NOTE | 2017-10-03 19:57 | PDOC ---
Exam Note: Edwin Note: Please also refer to the separate dictated note~for this date of service dictated separately.~Patient seen individually. Discussed the patient with Nursing staff reviewed the chart.~Reviewed interim history and current functioning. Reviewed vital signs,~Labs/ Radiology~and current medications noted below. Continue current treatment with the changes noted in the dictated addendum note Assessment: Vital Signs: Vital Signs Date Time Temp Pulse Resp B/P (MAP) Pulse Ox O2 Delivery O2 Flow Rate FiO2 10/03/17 15:08 98.4 86 18 96/60 (72) 97 09/28/17 20:15 Room Air I&O Intake and Output 10/03/17 07:00 Intake Total 600 ml Balance 600 ml Intake Oral 600 ml Current Medications: Meds: Current Medications Acetaminophen (Tylenol) 650 mg PRN Q6HRS PRN PO PAIN / TEMP Last administered on 09/29/17 03:19; Start 09/28/17 at 20:45 Multi-Ingredient Ointment (Analgesic [place]) 1 declan PRN QID PRN TP MUSCLE PAIN; Start 09/28/17 at 20:45 Al Hydroxide/Mg Hydroxide (Mylanta Plus Xs) 15 ml PRN AFTMEALHC PRN PO DYSPEPSIA; Start 09/28/17 at 20:45 Magnesium Hydroxide (Milk Of Magnesia) 2,400 mg PRN QHS PRN PO CONSTIPATION Last administered on 09/30/17 20:01; Start 09/28/17 at 20:45 Alprazolam (Xanax) 0.5 mg PRN Q4HRS PRN PO ANXIETY / AGITATION Last administered on 10/03/17 19:35; Start 09/28/17 at 21:30 Chlordiazepoxide/ Clidinium (Librax) 1 cap DAILY PO Last administered on 11:45; Start 09/29/17 at 09:00; Stop 09/29/17 at 20:22; Status DC Mirtazapine (Remeron) 15 mg QHS PO Last administered on 10/03/17 19:35; Start 09/28/17 at 22:00 Citalopram Hydrobromide (CeleXA) 40 mg DAILY PO Last administered on 09/29/17 08:55; Start 09/29/17 at 09:00; Stop 09/29/17 at 19:38; Status DC Trimethoprim/ Sulfamethoxazole (Bactrim Ds) 1 tab 1X ONCE PO Last administered on 09/29/17 01:31; Start 09/29/17 at 01:30; Stop 09/29/17 at 01:31 ; Status DC Metoclopramide HCl (Reglan) 5 mg TIDACHC PO Last administered on 10/03/17 19: 35; Start 09/29/17 at 08:45 Pantoprazole Sodium (Protonix) 40 mg DAILYAC PO Last administered on 10/03/17 07:23; Start 09/29/17 at 09:00 Polyethylene Glycol (miraLAX) 17 gm DAILY PO Last administered on 10/03/17 09: 35; Start 09/29/17 at 09:00 Potassium Chloride (Klor-Con) 20 meq DAILY PO Last administered on 10/03/17 09 :34; Start 09/29/17 at 09:00 Sucralfate (Carafate) 1 gm BIDBFRMEAL PO Last administered on 10/03/17 16:46; Start 09/29/17 at 11:00 Oxycodone HCl (Roxicodone) 5 mg PRN BID PRN PO PAIN; Start 09/29/17 at 08:45 Quetiapine Fumarate (SEROquel) 12.5 mg BID92 PO Last administered on 10/03/17 13:42; Start 09/30/17 at 09:00 Duloxetine HCl (Cymbalta) 30 mg DAILY PO Last administered on 10/02/17 09:18; Start 09/30/17 at 09:00; Stop 10/02/17 at 19:09; Status DC Chlordiazepoxide/ Clidinium (Librax) 1 cap TID PO Last administered on 13:14; Start 09/29/17 at 21:00; Stop 09/30/17 at 18:43; Status DC Ondansetron HCl (Zofran Odt) 4 mg Q4HRS PO Last administered on 10/01/17 23:17 ; Start 09/30/17 at 10:00; Stop 10/02/17 at 05:35; Status DC Chlordiazepoxide/ Clidinium (Librax) 1 cap BID PO Last administered on 09:33; Start 09/30/17 at 21:00; Stop 10/03/17 at 20:59 Chlordiazepoxide/ Clidinium (Librax) 1 cap DAILY PO ; Start 10/04/17 at 09:00; Stop 10/07/17 at 08:59 Ondansetron HCl (Zofran Odt) 4 mg PRN Q4HRS PRN PO NAUSEA; Start 10/03/17 at 04 :00; Stop 10/03/17 at 04:00; Status DC Ondansetron HCl (Zofran Odt) 4 mg PRN Q4HRS PRN PO NAUSEA Last administered on 10/02/17 07:25; Start 10/02/17 at 07:30 Vitamin D (Vitamin D3) 50,000 unit WEEKLY PO Last administered on 10/02/17 19: 49; Start 10/02/17 at 20:00 Duloxetine HCl (Cymbalta) 40 mg DAILY PO Last administered on 10/03/17 09:37; Start 10/03/17 at 09:00 Active Scripts Active Reported Miralax (Polyethylene Glycol 3350) 17 Gm Powd.pack 17 Gm PO DAILY Klor-Con M20 (Potassium Chloride) 20 Meq Tab.er.prt 20 Meq PO DAILY Librax Capsule (Chlordiazepoxide/Clidinium Br) 1 Each Capsule 1 Each PO DAILY Sucralfate 1 Gm Tablet 1 Gm PO BID Escitalopram Oxalate 20 Mg Tablet 20 Mg PO DAILY Pantoprazole Sodium 40 Mg Tablet.dr 40 Mg PO DAILY Mirtazapine 15 Mg Tablet 15 Mg PO QHS Oxycodone Hcl 5 Mg Capsule 5 Mg PO PRN BID PRN Reglan (Metoclopramide Hcl) 10 Mg Tablet 5 Mg PO TIDACHC Alprazolam 0.5 Mg Tablet 0.5 Mg PO PRN Q4HRS PRN I have reviewed the current psychotropics carefully including drug interactions. Risk benefit ratio favors no change other than as noted in my dictated progress note. Diagnosis: Problems: (1) Anxiety disorder (2) Impulse control disorder (3) Major depressive disorder, recurrent episode (4) Panic disorder with agoraphobia and severe panic attacks MELISSA BASHIR MD Oct 03, 2017 19:57
[2017-10-04] MEDS: ALPRAZolam 0.5 MG TABLET PO PRN (05:26)
[2017-10-04 06:18] VITALS: BP 107/64
[2017-10-04] MEDS: DULoxetine HCL 20 MG CAPSULE.DR PO SCH (08:27)
[2017-10-04] MEDS: POLYETHYLENE GLYCOL 3350 17 GM PACKET. PO SCH (08:27)
[2017-10-04] MEDS: POTASSIUM CHLORIDE 20 MEQ TABLET.ER. PO SCH (08:28)
[2017-10-04] MEDS: PANTOPRAZOLE 40 MG TABLET. PO SCH (08:28)
[2017-10-04] MEDS: QUEtiapine 25 MG TABLET. PO SCH ×2 (08:28→14:13)
[2017-10-04] MEDS: SUCRALFATE 1 GM TABLET. PO SCH ×2 (08:28→16:42)
[2017-10-04] MEDS: METOCLOPRAMIDE 5 MG TABLET PO SCH ×4 (08:31→19:42)
[2017-10-04] MEDS: CHLORDIAZEPOXIDE PO SCH (08:31)
[2017-10-04] MEDS: CLIDINIUM PO SCH (08:31)
--- NOTE | 2017-10-04 11:52 | PN ---
DATE: 10/02/2017 This is a late entry for 10/02/2017 and covers elements not covered in my initial note of 10/02/2017. I met with the patient in the evening of 10/02/2017. The patient slept 7-1/4 hours previous evening. She was anxious in the morning, worried about insurance, spoke to her significant other and resolved this, participated in groups. REVIEW OF SYSTEMS: Positive for anxiety. No CV, , pulmonary, eye system symptoms on review. MENTAL STATUS EXAM: Reasonably oriented. Speech coherent, abstraction fair, computation impaired, language function intact. She is still anxious, tremulous at her lips, but much less than before. LABORATORY DATA: Reviewed. IMPRESSION: Unchanged from initial note. PLAN: Increase Cymbalta to 40 mg a day starting 10/03/2017. She did take a Xanax in the morning. Maintain Seroquel 25 mg at 0900 hours and 1400 hours. Librax is being tapered and stopped. Adjust further as clinically indicated. MELISSA BASHIR MD DR: CARRILLO/praful JOB#: [id number] / [id number]
[2017-10-04 16:26] VITALS: BP 133/80
[2017-10-04] MEDS: MIRTAZAPINE 15 MG TABLET PO SCH (19:40)
[2017-10-04] MEDS: MAGNESIUM HYDROXIDE 2,400 MG/30 ML ORAL.SUSP. PO PRN (19:46)
--- NOTE | 2017-10-04 21:08 | PDOC ---
Exam Note: Edwin Note: Please also refer to the separate dictated note~for this date of service dictated separately.~Patient seen individually. Discussed the patient with Nursing staff reviewed the chart.~Reviewed interim history and current functioning. Reviewed vital signs,~Labs/ Radiology~and current medications noted below. Continue current treatment with the changes noted in the dictated addendum note Assessment: Vital Signs: Vital Signs Date Time Temp Pulse Resp B/P (MAP) Pulse Ox O2 Delivery O2 Flow Rate FiO2 10/04/17 16:26 97.4 86 18 133/80 (97) 97 Room Air I&O Intake and Output 10/04/17 07:00 Intake Total 840 ml Balance 840 ml Intake Oral 840 ml Current Medications: Meds: Current Medications Acetaminophen (Tylenol) 650 mg PRN Q6HRS PRN PO PAIN / TEMP Last administered on 09/29/17 03:19; Start 09/28/17 at 20:45 Multi-Ingredient Ointment (Analgesic [place]) 1 declan PRN QID PRN TP MUSCLE PAIN; Start 09/28/17 at 20:45 Al Hydroxide/Mg Hydroxide (Mylanta Plus Xs) 15 ml PRN AFTMEALHC PRN PO DYSPEPSIA; Start 09/28/17 at 20:45 Magnesium Hydroxide (Milk Of Magnesia) 2,400 mg PRN QHS PRN PO CONSTIPATION Last administered on 10/04/17 19:46; Start 09/28/17 at 20:45 Alprazolam (Xanax) 0.5 mg PRN Q4HRS PRN PO ANXIETY / AGITATION Last administered on 10/04/17 05:26; Start 09/28/17 at 21:30 Chlordiazepoxide/ Clidinium (Librax) 1 cap DAILY PO Last administered on 11:45; Start 09/29/17 at 09:00; Stop 09/29/17 at 20:22; Status DC Mirtazapine (Remeron) 15 mg QHS PO Last administered on 10/04/17 19:40; Start 09/28/17 at 22:00 Citalopram Hydrobromide (CeleXA) 40 mg DAILY PO Last administered on 09/29/17 08:55; Start 09/29/17 at 09:00; Stop 09/29/17 at 19:38; Status DC Trimethoprim/ Sulfamethoxazole (Bactrim Ds) 1 tab 1X ONCE PO Last administered on 09/29/17 01:31; Start 09/29/17 at 01:30; Stop 09/29/17 at 01:31 ; Status DC Metoclopramide HCl (Reglan) 5 mg TIDACHC PO Last administered on 10/04/17 19: 42; Start 09/29/17 at 08:45 Pantoprazole Sodium (Protonix) 40 mg DAILYAC PO Last administered on 10/04/17 08:28; Start 09/29/17 at 09:00 Polyethylene Glycol (miraLAX) 17 gm DAILY PO Last administered on 10/04/17 08: 27; Start 09/29/17 at 09:00 Potassium Chloride (Klor-Con) 20 meq DAILY PO Last administered on 10/04/17 08 :28; Start 09/29/17 at 09:00 Sucralfate (Carafate) 1 gm BIDBFRMEAL PO Last administered on 10/04/17 16:42; Start 09/29/17 at 11:00 Oxycodone HCl (Roxicodone) 5 mg PRN BID PRN PO PAIN; Start 09/29/17 at 08:45 Quetiapine Fumarate (SEROquel) 12.5 mg BID92 PO Last administered on 10/04/17 14:13; Start 09/30/17 at 09:00 Duloxetine HCl (Cymbalta) 30 mg DAILY PO Last administered on 10/02/17 09:18; Start 09/30/17 at 09:00; Stop 10/02/17 at 19:09; Status DC Chlordiazepoxide/ Clidinium (Librax) 1 cap TID PO Last administered on 13:14; Start 09/29/17 at 21:00; Stop 09/30/17 at 18:43; Status DC Ondansetron HCl (Zofran Odt) 4 mg Q4HRS PO Last administered on 10/01/17 23:17 ; Start 09/30/17 at 10:00; Stop 10/02/17 at 05:35; Status DC Chlordiazepoxide/ Clidinium (Librax) 1 cap BID PO Last administered on 09:33; Start 09/30/17 at 21:00; Stop 10/03/17 at 20:59; Status DC Chlordiazepoxide/ Clidinium (Librax) 1 cap DAILY PO Last administered on 08:31; Start 10/04/17 at 09:00; Stop 10/07/17 at 08:59 Ondansetron HCl (Zofran Odt) 4 mg PRN Q4HRS PRN PO NAUSEA; Start 10/03/17 at 04 :00; Stop 10/03/17 at 04:00; Status DC Ondansetron HCl (Zofran Odt) 4 mg PRN Q4HRS PRN PO NAUSEA Last administered on 10/02/17 07:25; Start 10/02/17 at 07:30 Vitamin D (Vitamin D3) 50,000 unit WEEKLY PO Last administered on 10/02/17 19: 49; Start 10/02/17 at 20:00 Duloxetine HCl (Cymbalta) 40 mg DAILY PO Last administered on 10/04/17 08:27; Start 10/03/17 at 09:00 Active Scripts Active Reported Miralax (Polyethylene Glycol 3350) 17 Gm Powd.pack 17 Gm PO DAILY Klor-Con M20 (Potassium Chloride) 20 Meq Tab.er.prt 20 Meq PO DAILY Librax Capsule (Chlordiazepoxide/Clidinium Br) 1 Each Capsule 1 Each PO DAILY Sucralfate 1 Gm Tablet 1 Gm PO BID Escitalopram Oxalate 20 Mg Tablet 20 Mg PO DAILY Pantoprazole Sodium 40 Mg Tablet.dr 40 Mg PO DAILY Mirtazapine 15 Mg Tablet 15 Mg PO QHS Oxycodone Hcl 5 Mg Capsule 5 Mg PO PRN BID PRN Reglan (Metoclopramide Hcl) 10 Mg Tablet 5 Mg PO TIDACHC Alprazolam 0.5 Mg Tablet 0.5 Mg PO PRN Q4HRS PRN I have reviewed the current psychotropics carefully including drug interactions. Risk benefit ratio favors no change other than as noted in my dictated progress note. Diagnosis: Problems: (1) Anxiety disorder (2) Impulse control disorder (3) Major depressive disorder, recurrent episode (4) Panic disorder with agoraphobia and severe panic attacks MELISSA BASHIR MD Oct 04, 2017 21:08
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
[2017-10-05 05:43] VITALS: BP 105/70
[2017-10-05] MEDS: SUCRALFATE 1 GM TABLET. PO SCH ×2 (08:30→16:44)
[2017-10-05] MEDS: POTASSIUM CHLORIDE 20 MEQ TABLET.ER. PO SCH (08:30)
[2017-10-05] MEDS: PANTOPRAZOLE 40 MG TABLET. PO SCH (08:30)
[2017-10-05] MEDS: POLYETHYLENE GLYCOL 3350 17 GM PACKET. PO SCH (08:30)
[2017-10-05] MEDS: DULoxetine HCL 20 MG CAPSULE.DR PO SCH (08:31)
[2017-10-05] MEDS: CHLORDIAZEPOXIDE PO SCH (08:31)
[2017-10-05] MEDS: QUEtiapine 25 MG TABLET. PO SCH ×3 (08:31→20:15)
[2017-10-05] MEDS: METOCLOPRAMIDE 5 MG TABLET PO SCH ×4 (08:31→20:21)
[2017-10-05] MEDS: CLIDINIUM PO SCH (08:31)
[2017-10-05 09:08] LABS: BASO % 1 % (0-3); EOS # 0.1 x10^3/uL (0.0-0.7); EOS % 2 % (0-3); HEMATOCRIT 39.5 % (36.0-47.0); HEMOGLOBIN 13.2 g/dL (12.0-15.5); LYMPH # 0.6 x10^3/uL (1.0-4.8); LYMPH % 22 % (24-48); MEAN CORPUSCULAR HEMOGLOBIN 34 pg (25-35); MEAN CORPUSCULAR HGB CONC 34 g/dL (31-37); MEAN CORPUSCULAR VOLUME 102 fL (79-100); MONO # 0.3 x10^3/uL (0.0-1.1); MONO % 11 % (0-9); NEUT # 1.7 x10^3uL (1.8-7.7); NEUT % 64 % (31-73); PLATELET COUNT 228 x10^3/uL (140-400); RED BLOOD COUNT 3.86 x10^6/uL (3.50-5.40); RED CELL DISTRIBUTION WIDTH 13.9 % (11.5-14.5); WHITE BLOOD COUNT 2.7 x10^3/uL (4.0-11.0)
[2017-10-05 09:31] LABS: ALBUMIN 3.6 g/dL (3.4-5.0); CALCIUM 8.8 mg/dL (8.5-10.1); CREATININE 0.7 mg/dL (0.6-1.0); GFR 82.3; POTASSIUM 3.5 mmol/L (3.5-5.1); TOTAL BILIRUBIN 0.3 mg/dL (0.2-1.0); TOTAL PROTEIN 7.2 g/dL (6.4-8.2)
[2017-10-05] MEDS: ALPRAZolam 0.5 MG TABLET PO PRN (13:35)
[2017-10-05 16:31] VITALS: BP 119/78
--- NOTE | 2017-10-05 19:52 | PDOC ---
Exam Note: Edwin Note: Please also refer to the separate dictated note~for this date of service dictated separately.~Patient seen individually. Discussed the patient with Nursing staff reviewed the chart.~Reviewed interim history and current functioning. Reviewed vital signs,~Labs/ Radiology~and current medications noted below. Continue current treatment with the changes noted in the dictated addendum note Assessment: Vital Signs: Vital Signs Date Time Temp Pulse Resp B/P (MAP) Pulse Ox O2 Delivery O2 Flow Rate FiO2 10/05/17 16:31 98.3 92 18 119/78 (92) 97 10/05/17 05:43 Room Air I&O Intake and Output 10/05/17 07:00 Intake Total 1560 ml Balance 1560 ml Intake Oral 1560 ml Labs: Laboratory Tests Test 10/05/17 08:57 White Blood Count 2.7 x10^3/uL (4.0-11.0) L Red Blood Count 3.86 x10^6/uL (3.50-5.40) Hemoglobin 13.2 g/dL (12.0-15.5) Hematocrit 39.5 % (36.0-47.0) Mean Corpuscular Volume 102 fL (79-100) H Mean Corpuscular Hemoglobin 34 pg (25-35) Mean Corpuscular Hemoglobin Concent 34 g/dL (31-37) Red Cell Distribution Width 13.9 % (11.5-14.5) Platelet Count 228 x10^3/uL (140-400) Neutrophils (%) (Auto) 64 % (31-73) Lymphocytes (%) (Auto) 22 % (24-48) L Monocytes (%) (Auto) 11 % (0-9) H Eosinophils (%) (Auto) 2 % (0-3) Basophils (%) (Auto) 1 % (0-3) Neutrophils # (Auto) 1.7 x10^3uL (1.8-7.7) L Lymphocytes # (Auto) 0.6 x10^3/uL (1.0-4.8) L Monocytes # (Auto) 0.3 x10^3/uL (0.0-1.1) Eosinophils # (Auto) 0.1 x10^3/uL (0.0-0.7) Basophils # (Auto) 0.0 x10^3/uL (0.0-0.2) Sodium Level 141 mmol/L (136-145) Potassium Level 3.5 mmol/L (3.5-5.1) Chloride Level 102 mmol/L (98-107) Carbon Dioxide Level 33 mmol/L (21-32) H Anion Gap 6 (6-14) Blood Urea Nitrogen 13 mg/dL (7-20) Creatinine 0.7 mg/dL (0.6-1.0) Estimated GFR (Cockcroft-Gault) 82.3 BUN/Creatinine Ratio 19 (6-20) Glucose Level 127 mg/dL (70-99) H Calcium Level 8.8 mg/dL (8.5-10.1) Magnesium Level 2.0 mg/dL (1.8-2.4) Total Bilirubin 0.3 mg/dL (0.2-1.0) Aspartate Amino Transferase (AST) 18 U/L (15-37) Alanine Aminotransferase (ALT) 29 U/L (14-59) Alkaline Phosphatase 87 U/L (46-116) Total Protein 7.2 g/dL (6.4-8.2) Albumin 3.6 g/dL (3.4-5.0) Albumin/Globulin Ratio 1.0 (1.0-1.7) Current Medications: Meds: Current Medications Acetaminophen (Tylenol) 650 mg PRN Q6HRS PRN PO PAIN / TEMP Last administered on 09/29/17 03:19; Start 09/28/17 at 20:45 Multi-Ingredient Ointment (Analgesic [place]) 1 declan PRN QID PRN TP MUSCLE PAIN; Start 09/28/17 at 20:45 Al Hydroxide/Mg Hydroxide (Mylanta Plus Xs) 15 ml PRN AFTMEALHC PRN PO DYSPEPSIA; Start 09/28/17 at 20:45 Magnesium Hydroxide (Milk Of Magnesia) 2,400 mg PRN QHS PRN PO CONSTIPATION Last administered on 10/04/17 19:46; Start 09/28/17 at 20:45 Alprazolam (Xanax) 0.5 mg PRN Q4HRS PRN PO ANXIETY / AGITATION Last administered on 10/05/17 13:35; Start 09/28/17 at 21:30 Chlordiazepoxide/ Clidinium (Librax) 1 cap DAILY PO Last administered on 11:45; Start 09/29/17 at 09:00; Stop 09/29/17 at 20:22; Status DC Mirtazapine (Remeron) 15 mg QHS PO Last administered on 10/04/17 19:40; Start 09/28/17 at 22:00 Citalopram Hydrobromide (CeleXA) 40 mg DAILY PO Last administered on 09/29/17 08:55; Start 09/29/17 at 09:00; Stop 09/29/17 at 19:38; Status DC Trimethoprim/ Sulfamethoxazole (Bactrim Ds) 1 tab 1X ONCE PO Last administered on 09/29/17 01:31; Start 09/29/17 at 01:30; Stop 09/29/17 at 01:31 ; Status DC Metoclopramide HCl (Reglan) 5 mg TIDACHC PO Last administered on 10/05/17 16: 44; Start 09/29/17 at 08:45 Pantoprazole Sodium (Protonix) 40 mg DAILYAC PO Last administered on 10/05/17 08:30; Start 09/29/17 at 09:00 Polyethylene Glycol (miraLAX) 17 gm DAILY PO Last administered on 10/05/17 08: 30; Start 09/29/17 at 09:00 Potassium Chloride (Klor-Con) 20 meq DAILY PO Last administered on 10/05/17 08 :30; Start 09/29/17 at 09:00 Sucralfate (Carafate) 1 gm BIDBFRMEAL PO Last administered on 10/05/17 16:44; Start 09/29/17 at 11:00 Oxycodone HCl (Roxicodone) 5 mg PRN BID PRN PO PAIN; Start 09/29/17 at 08:45 Quetiapine Fumarate (SEROquel) 12.5 mg BID92 PO Last administered on 10/05/17 08:31; Start 09/30/17 at 09:00; Stop 10/05/17 at 11:54; Status DC Duloxetine HCl (Cymbalta) 30 mg DAILY PO Last administered on 10/02/17 09:18; Start 09/30/17 at 09:00; Stop 10/02/17 at 19:09; Status DC Chlordiazepoxide/ Clidinium (Librax) 1 cap TID PO Last administered on 13:14; Start 09/29/17 at 21:00; Stop 09/30/17 at 18:43; Status DC Ondansetron HCl (Zofran Odt) 4 mg Q4HRS PO Last administered on 10/01/17 23:17 ; Start 09/30/17 at 10:00; Stop 10/02/17 at 05:35; Status DC Chlordiazepoxide/ Clidinium (Librax) 1 cap BID PO Last administered on 09:33; Start 09/30/17 at 21:00; Stop 10/03/17 at 20:59; Status DC Chlordiazepoxide/ Clidinium (Librax) 1 cap DAILY PO Last administered on 08:31; Start 10/04/17 at 09:00; Stop 10/07/17 at 08:59 Ondansetron HCl (Zofran Odt) 4 mg PRN Q4HRS PRN PO NAUSEA; Start 10/03/17 at 04 :00; Stop 10/03/17 at 04:00; Status DC Ondansetron HCl (Zofran Odt) 4 mg PRN Q4HRS PRN PO NAUSEA Last administered on 10/02/17 07:25; Start 10/02/17 at 07:30 Vitamin D (Vitamin D3) 50,000 unit WEEKLY PO Last administered on 10/02/17 19: 49; Start 10/02/17 at 20:00 Duloxetine HCl (Cymbalta) 40 mg DAILY PO Last administered on 10/05/17 08:31; Start 10/03/17 at 09:00 Quetiapine Fumarate (SEROquel) 12.5 mg TID PO Last administered on 10/05/17 13 :35; Start 10/05/17 at 14:00 Active Scripts Active Reported Miralax (Polyethylene Glycol 3350) 17 Gm Powd.pack 17 Gm PO DAILY Klor-Con M20 (Potassium Chloride) 20 Meq Tab.er.prt 20 Meq PO DAILY Librax Capsule (Chlordiazepoxide/Clidinium Br) 1 Each Capsule 1 Each PO DAILY Sucralfate 1 Gm Tablet 1 Gm PO BID Escitalopram Oxalate 20 Mg Tablet 20 Mg PO DAILY Pantoprazole Sodium 40 Mg Tablet.dr 40 Mg PO DAILY Mirtazapine 15 Mg Tablet 15 Mg PO QHS Oxycodone Hcl 5 Mg Capsule 5 Mg PO PRN BID PRN Reglan (Metoclopramide Hcl) 10 Mg Tablet 5 Mg PO TIDACHC Alprazolam 0.5 Mg Tablet 0.5 Mg PO PRN Q4HRS PRN I have reviewed the current psychotropics carefully including drug interactions. Risk benefit ratio favors no change other than as noted in my dictated progress note. Diagnosis: Problems: (1) Anxiety disorder (2) Impulse control disorder (3) Major depressive disorder, recurrent episode (4) Panic disorder with agoraphobia and severe panic attacks MELISSA BASHIR MD Oct 05, 2017 19:52
[2017-10-05] MEDS: MIRTAZAPINE 15 MG TABLET PO SCH (20:15)
--- NOTE | 2017-10-05 22:00 | PN ---
DATE: 10/04/2017 This late entry 10/04/2017 covers elements not covered in my initial note 10/04/2017. Met with the patient evening 10/04/2017. SUBJECTIVE: The patient slept 8 hours previous evening, remains somewhat anxious, but no PRNs use during the day. REVIEW OF SYSTEMS: No CV, , pulmonary, eye, ENT system symptoms on review. MENTAL STATUS EXAM: Reasonably oriented. Speech coherent, abstraction fair, computation impaired, language function intact, attention span short. Mood and affect still somewhat anxious, labile, but improved. LABORATORY DATA: Reviewed. IMPRESSION: Unchanged from initial note. PLAN: Continue current psychotropics mentioned in my initial note including the increased Cymbalta 40 mg a day. Adjust further as clinically indicated. Librax has been tapered and discontinued. MAN Scooter BASHIR MD DR: CARRILLO/praful JOB#: [id number] / [id number]
[2017-10-06] MEDS: ALPRAZolam 0.5 MG TABLET PO PRN ×3 (03:19→21:26)
[2017-10-06 05:45] VITALS: BP 105/63
[2017-10-06] MEDS: METOCLOPRAMIDE 5 MG TABLET PO SCH ×4 (07:45→19:34)
[2017-10-06] MEDS: QUEtiapine 25 MG TABLET. PO SCH ×3 (09:19→19:31)
[2017-10-06] MEDS: POLYETHYLENE GLYCOL 3350 17 GM PACKET. PO SCH (09:20)
[2017-10-06] MEDS: CHLORDIAZEPOXIDE PO SCH (09:20)
[2017-10-06] MEDS: PANTOPRAZOLE 40 MG TABLET. PO SCH (09:20)
[2017-10-06] MEDS: SUCRALFATE 1 GM TABLET. PO SCH ×2 (09:20→16:48)
[2017-10-06] MEDS: POTASSIUM CHLORIDE 20 MEQ TABLET.ER. PO SCH (09:20)
[2017-10-06] MEDS: DULoxetine HCL 20 MG CAPSULE.DR PO SCH (09:20)
[2017-10-06] MEDS: CLIDINIUM PO SCH (09:20)
[2017-10-06 16:00] VITALS: BP 101/67
[2017-10-06] MEDS: MIRTAZAPINE 15 MG TABLET PO SCH (19:31)
--- NOTE | 2017-10-06 19:47 | PDOC ---
Exam Note: Edwin Note: Please also refer to the separate dictated note~for this date of service dictated separately.~Patient seen individually. Discussed the patient with Nursing staff reviewed the chart.~Reviewed interim history and current functioning. Reviewed vital signs,~Labs/ Radiology~and current medications noted below. Continue current treatment with the changes noted in the dictated addendum note Assessment: Vital Signs: Vital Signs Date Time Temp Pulse Resp B/P (MAP) Pulse Ox O2 Delivery O2 Flow Rate FiO2 10/06/17 16:00 98.1 88 16 101/67 (78) 97 10/05/17 05:43 Room Air I&O Intake and Output 10/06/17 07:00 Intake Total 1200 ml Balance 1200 ml Intake Oral 1200 ml # Bowel Movements 1 Current Medications: Meds: Current Medications Acetaminophen (Tylenol) 650 mg PRN Q6HRS PRN PO PAIN / TEMP Last administered on 09/29/17 03:19; Start 09/28/17 at 20:45 Multi-Ingredient Ointment (Analgesic [place]) 1 declan PRN QID PRN TP MUSCLE PAIN; Start 09/28/17 at 20:45 Al Hydroxide/Mg Hydroxide (Mylanta Plus Xs) 15 ml PRN AFTMEALHC PRN PO DYSPEPSIA; Start 09/28/17 at 20:45 Magnesium Hydroxide (Milk Of Magnesia) 2,400 mg PRN QHS PRN PO CONSTIPATION Last administered on 10/04/17 19:46; Start 09/28/17 at 20:45 Alprazolam (Xanax) 0.5 mg PRN Q4HRS PRN PO ANXIETY / AGITATION Last administered on 10/06/17 07:45; Start 09/28/17 at 21:30 Chlordiazepoxide/ Clidinium (Librax) 1 cap DAILY PO Last administered on 11:45; Start 09/29/17 at 09:00; Stop 09/29/17 at 20:22; Status DC Mirtazapine (Remeron) 15 mg QHS PO Last administered on 10/06/17 19:31; Start 09/28/17 at 22:00 Citalopram Hydrobromide (CeleXA) 40 mg DAILY PO Last administered on 09/29/17 08:55; Start 09/29/17 at 09:00; Stop 09/29/17 at 19:38; Status DC Trimethoprim/ Sulfamethoxazole (Bactrim Ds) 1 tab 1X ONCE PO Last administered on 09/29/17 01:31; Start 09/29/17 at 01:30; Stop 09/29/17 at 01:31 ; Status DC Metoclopramide HCl (Reglan) 5 mg TIDACHC PO Last administered on 10/06/17 19: 34; Start 09/29/17 at 08:45 Pantoprazole Sodium (Protonix) 40 mg DAILYAC PO Last administered on 10/06/17 09:20; Start 09/29/17 at 09:00 Polyethylene Glycol (miraLAX) 17 gm DAILY PO Last administered on 10/06/17 09: 20; Start 09/29/17 at 09:00 Potassium Chloride (Klor-Con) 20 meq DAILY PO Last administered on 10/06/17 09 :20; Start 09/29/17 at 09:00 Sucralfate (Carafate) 1 gm BIDBFRMEAL PO Last administered on 10/06/17 16:48; Start 09/29/17 at 11:00 Oxycodone HCl (Roxicodone) 5 mg PRN BID PRN PO PAIN; Start 09/29/17 at 08:45 Quetiapine Fumarate (SEROquel) 12.5 mg BID92 PO Last administered on 10/05/17 08:31; Start 09/30/17 at 09:00; Stop 10/05/17 at 11:54; Status DC Duloxetine HCl (Cymbalta) 30 mg DAILY PO Last administered on 10/02/17 09:18; Start 09/30/17 at 09:00; Stop 10/02/17 at 19:09; Status DC Chlordiazepoxide/ Clidinium (Librax) 1 cap TID PO Last administered on 13:14; Start 09/29/17 at 21:00; Stop 09/30/17 at 18:43; Status DC Ondansetron HCl (Zofran Odt) 4 mg Q4HRS PO Last administered on 10/01/17 23:17 ; Start 09/30/17 at 10:00; Stop 10/02/17 at 05:35; Status DC Chlordiazepoxide/ Clidinium (Librax) 1 cap BID PO Last administered on 09:33; Start 09/30/17 at 21:00; Stop 10/03/17 at 20:59; Status DC Chlordiazepoxide/ Clidinium (Librax) 1 cap DAILY PO Last administered on 09:20; Start 10/04/17 at 09:00; Stop 10/07/17 at 08:59 Ondansetron HCl (Zofran Odt) 4 mg PRN Q4HRS PRN PO NAUSEA; Start 10/03/17 at 04 :00; Stop 10/03/17 at 04:00; Status DC Ondansetron HCl (Zofran Odt) 4 mg PRN Q4HRS PRN PO NAUSEA Last administered on 10/02/17 07:25; Start 10/02/17 at 07:30 Vitamin D (Vitamin D3) 50,000 unit WEEKLY PO Last administered on 10/02/17 19: 49; Start 10/02/17 at 20:00 Duloxetine HCl (Cymbalta) 40 mg DAILY PO Last administered on 10/06/17 09:20; Start 10/03/17 at 09:00 Quetiapine Fumarate (SEROquel) 12.5 mg TID PO Last administered on 10/06/17 19 :31; Start 10/05/17 at 14:00 Active Scripts Active Reported Miralax (Polyethylene Glycol 3350) 17 Gm Powd.pack 17 Gm PO DAILY Klor-Con M20 (Potassium Chloride) 20 Meq Tab.er.prt 20 Meq PO DAILY Librax Capsule (Chlordiazepoxide/Clidinium Br) 1 Each Capsule 1 Each PO DAILY Sucralfate 1 Gm Tablet 1 Gm PO BID Escitalopram Oxalate 20 Mg Tablet 20 Mg PO DAILY Pantoprazole Sodium 40 Mg Tablet.dr 40 Mg PO DAILY Mirtazapine 15 Mg Tablet 15 Mg PO QHS Oxycodone Hcl 5 Mg Capsule 5 Mg PO PRN BID PRN Reglan (Metoclopramide Hcl) 10 Mg Tablet 5 Mg PO TIDACHC Alprazolam 0.5 Mg Tablet 0.5 Mg PO PRN Q4HRS PRN I have reviewed the current psychotropics carefully including drug interactions. Risk benefit ratio favors no change other than as noted in my dictated progress note. Diagnosis: Problems: (1) Anxiety disorder (2) Impulse control disorder (3) Major depressive disorder, recurrent episode (4) Panic disorder with agoraphobia and severe panic attacks MELISSA BASHIR MD Oct 06, 2017 19:47
--- NOTE | 2017-10-07 03:45 | PN ---
DATE: 10/05/2017 PSYCHIATRIC PROGRESS NOTE This is a late entry for 10/05/2017, covers the elements not covered in my initial note of 10/05/2017. SUBJECTIVE: I met with the patient the evening of 10/05/2017 and staffed at a treatment team meeting morning of 10/05/2017. The patient remains somewhat anxious, at times labile, fixated on getting back home, but [place] her significant other works. She has little social contact and then sits in ruminates about things that just make her anxiety worse. The family is arranged an independent living accommodation at [place] and perhaps this may be appropriate for her, processed this with her. REVIEW OF SYSTEMS: No CV, , pulmonary, eye system symptoms on review, met with her in her room at some length. MENTAL STATUS EXAM: Reasonably oriented. Speech is coherent, abstraction fair, computation impaired, language function intact, attention span short. Mood and affect showing improvement, still anxious, slightly dysphoric at times. LABORATORY DATA: Reviewed. IMPRESSION: Unchanged from initial note. PLAN: Increase Seroquel from 12.5 mg twice a day to 3 times a day. Continue Rest unchanged. Librax has been stopped. MELISSA BASHIR MD DR: CARRILLO/praful JOB#: [id number] / [id number]
[2017-10-07 05:51] VITALS: BP 103/69
[2017-10-07] MEDS: SUCRALFATE 1 GM TABLET. PO SCH ×2 (08:38→17:28)
[2017-10-07] MEDS: DULoxetine HCL 20 MG CAPSULE.DR PO SCH (08:39)
[2017-10-07] MEDS: METOCLOPRAMIDE 5 MG TABLET PO SCH ×4 (08:39→20:34)
[2017-10-07] MEDS: PANTOPRAZOLE 40 MG TABLET. PO SCH (08:39)
[2017-10-07] MEDS: POLYETHYLENE GLYCOL 3350 17 GM PACKET. PO SCH (08:40)
[2017-10-07] MEDS: POTASSIUM CHLORIDE 20 MEQ TABLET.ER. PO SCH (08:40)
[2017-10-07] MEDS: QUEtiapine 25 MG TABLET. PO SCH ×3 (08:40→20:34)
[2017-10-07] MEDS: ALPRAZolam 0.5 MG TABLET PO PRN ×4 (09:46→20:57)
[2017-10-07 16:17] VITALS: BP 98/58
[2017-10-07] MEDS: MIRTAZAPINE 15 MG TABLET PO SCH (20:34)
--- NOTE | 2017-10-07 21:31 | PDOC ---
Exam Note: Edwin Note: Please also refer to the separate dictated note~for this date of service dictated separately.~Patient seen individually. Discussed the patient with Nursing staff reviewed the chart.~Reviewed interim history and current functioning. Reviewed vital signs,~Labs/ Radiology~and current medications noted below. Continue current treatment with the changes noted in the dictated addendum note Assessment: Vital Signs: Vital Signs Date Time Temp Pulse Resp B/P (MAP) Pulse Ox O2 Delivery O2 Flow Rate FiO2 10/07/17 16:17 98.8 104 20 98/58 (71) 98 Room Air I&O Intake and Output 10/07/17 07:00 Intake Total 600 ml Balance 600 ml Intake Oral 600 ml Current Medications: Meds: Current Medications Acetaminophen (Tylenol) 650 mg PRN Q6HRS PRN PO PAIN / TEMP Last administered on 09/29/17 03:19; Start 09/28/17 at 20:45 Multi-Ingredient Ointment (Analgesic [place]) 1 declan PRN QID PRN TP MUSCLE PAIN; Start 09/28/17 at 20:45 Al Hydroxide/Mg Hydroxide (Mylanta Plus Xs) 15 ml PRN AFTMEALHC PRN PO DYSPEPSIA; Start 09/28/17 at 20:45 Magnesium Hydroxide (Milk Of Magnesia) 2,400 mg PRN QHS PRN PO CONSTIPATION Last administered on 10/04/17 19:46; Start 09/28/17 at 20:45 Alprazolam (Xanax) 0.5 mg PRN Q4HRS PRN PO ANXIETY / AGITATION Last administered on 10/07/17 20:57; Start 09/28/17 at 21:30 Chlordiazepoxide/ Clidinium (Librax) 1 cap DAILY PO Last administered on 11:45; Start 09/29/17 at 09:00; Stop 09/29/17 at 20:22; Status DC Mirtazapine (Remeron) 15 mg QHS PO Last administered on 10/07/17 20:34; Start 09/28/17 at 22:00 Citalopram Hydrobromide (CeleXA) 40 mg DAILY PO Last administered on 09/29/17 08:55; Start 09/29/17 at 09:00; Stop 09/29/17 at 19:38; Status DC Trimethoprim/ Sulfamethoxazole (Bactrim Ds) 1 tab 1X ONCE PO Last administered on 09/29/17 01:31; Start 09/29/17 at 01:30; Stop 09/29/17 at 01:31 ; Status DC Metoclopramide HCl (Reglan) 5 mg TIDACHC PO Last administered on 10/07/17 20: 34; Start 09/29/17 at 08:45 Pantoprazole Sodium (Protonix) 40 mg DAILYAC PO Last administered on 10/07/17 08:39; Start 09/29/17 at 09:00 Polyethylene Glycol (miraLAX) 17 gm DAILY PO Last administered on 10/07/17 08: 40; Start 09/29/17 at 09:00 Potassium Chloride (Klor-Con) 20 meq DAILY PO Last administered on 10/07/17 08 :40; Start 09/29/17 at 09:00 Sucralfate (Carafate) 1 gm BIDBFRMEAL PO Last administered on 10/07/17 17:28; Start 09/29/17 at 11:00 Oxycodone HCl (Roxicodone) 5 mg PRN BID PRN PO PAIN; Start 09/29/17 at 08:45 Quetiapine Fumarate (SEROquel) 12.5 mg BID92 PO Last administered on 10/05/17 08:31; Start 09/30/17 at 09:00; Stop 10/05/17 at 11:54; Status DC Duloxetine HCl (Cymbalta) 30 mg DAILY PO Last administered on 10/02/17 09:18; Start 09/30/17 at 09:00; Stop 10/02/17 at 19:09; Status DC Chlordiazepoxide/ Clidinium (Librax) 1 cap TID PO Last administered on 13:14; Start 09/29/17 at 21:00; Stop 09/30/17 at 18:43; Status DC Ondansetron HCl (Zofran Odt) 4 mg Q4HRS PO Last administered on 10/01/17 23:17 ; Start 09/30/17 at 10:00; Stop 10/02/17 at 05:35; Status DC Chlordiazepoxide/ Clidinium (Librax) 1 cap BID PO Last administered on 09:33; Start 09/30/17 at 21:00; Stop 10/03/17 at 20:59; Status DC Chlordiazepoxide/ Clidinium (Librax) 1 cap DAILY PO Last administered on 09:20; Start 10/04/17 at 09:00; Stop 10/07/17 at 08:59; Status DC Ondansetron HCl (Zofran Odt) 4 mg PRN Q4HRS PRN PO NAUSEA; Start 10/03/17 at 04 :00; Stop 10/03/17 at 04:00; Status DC Ondansetron HCl (Zofran Odt) 4 mg PRN Q4HRS PRN PO NAUSEA Last administered on 10/02/17 07:25; Start 10/02/17 at 07:30 Vitamin D (Vitamin D3) 50,000 unit WEEKLY PO Last administered on 10/02/17 19: 49; Start 10/02/17 at 20:00 Duloxetine HCl (Cymbalta) 40 mg DAILY PO Last administered on 10/07/17 08:39; Start 10/03/17 at 09:00 Quetiapine Fumarate (SEROquel) 12.5 mg TID PO Last administered on 10/07/17 20 :34; Start 10/05/17 at 14:00 Active Scripts Active Reported Miralax (Polyethylene Glycol 3350) 17 Gm Powd.pack 17 Gm PO DAILY Klor-Con M20 (Potassium Chloride) 20 Meq Tab.er.prt 20 Meq PO DAILY Librax Capsule (Chlordiazepoxide/Clidinium Br) 1 Each Capsule 1 Each PO DAILY Sucralfate 1 Gm Tablet 1 Gm PO BID Escitalopram Oxalate 20 Mg Tablet 20 Mg PO DAILY Pantoprazole Sodium 40 Mg Tablet.dr 40 Mg PO DAILY Mirtazapine 15 Mg Tablet 15 Mg PO QHS Oxycodone Hcl 5 Mg Capsule 5 Mg PO PRN BID PRN Reglan (Metoclopramide Hcl) 10 Mg Tablet 5 Mg PO TIDACHC Alprazolam 0.5 Mg Tablet 0.5 Mg PO PRN Q4HRS PRN I have reviewed the current psychotropics carefully including drug interactions. Risk benefit ratio favors no change other than as noted in my dictated progress note. Diagnosis: Problems: (1) Anxiety disorder (2) Impulse control disorder (3) Major depressive disorder, recurrent episode (4) Panic disorder with agoraphobia and severe panic attacks MELISSA BASHIR MD Oct 07, 2017 21:31
[2017-10-08 06:04] VITALS: BP 101/62
[2017-10-08] MEDS: METOCLOPRAMIDE 5 MG TABLET PO SCH ×4 (08:43→20:10)
[2017-10-08] MEDS: SUCRALFATE 1 GM TABLET. PO SCH ×2 (08:43→17:12)
[2017-10-08] MEDS: PANTOPRAZOLE 40 MG TABLET. PO SCH (08:43)
[2017-10-08] MEDS: POTASSIUM CHLORIDE 20 MEQ TABLET.ER. PO SCH (08:44)
[2017-10-08] MEDS: DULoxetine HCL 20 MG CAPSULE.DR PO SCH (08:44)
[2017-10-08] MEDS: POLYETHYLENE GLYCOL 3350 17 GM PACKET. PO SCH (08:44)
[2017-10-08] MEDS: QUEtiapine 25 MG TABLET. PO SCH ×3 (08:45→20:09)
[2017-10-08] MEDS: ALPRAZolam 0.5 MG TABLET PO PRN ×2 (11:10→20:09)
--- NOTE | 2017-10-08 12:41 | PN ---
DATE: 10/06/2017 This late entry, 10/06/2017, covers elements not covered in my initial note of 10/06/2017. SUBJECTIVE: I met with the patient the evening of 10/06/2017 in her room. Per nursing report, the patient has been obsessing about wash and unable to track them. She gets anxious, received Xanax at 3:00 p.m. and 7:45 p.m., complains of nausea consequent to anxiety. Hands shaking, jittery, anxious at times. During the individual visit, processed cognitive behavioral ways to improve anxiety and mood. REVIEW OF SYSTEMS: Positive for vague somatic symptoms, anxiety. No CV, , pulmonary, eye system symptoms on review. MENTAL STATUS EXAM: Reasonably oriented. Speech coherent, had some quiver in her speech. Abstraction fair, computation impaired, language function intact. Mood and affect still depressed, anxious, but showing improvement. LABORATORY DATA: Reviewed. IMPRESSION: Unchanged from initial note. PLAN: Continue psychotropics mentioned in my initial note. Adjust further as clinically indicated. MAN Scooter BASHIR MD DR: CARRILLO/praful JOB#: [id number] / [id number]
--- NOTE | 2017-10-08 13:55 | PN ---
DATE: 10/07/2017 PSYCHIATRIC PROGRESS NOTE This is a late entry 10/07/2017, covers elements not covered in my initial note from 10/07/2017. Met with the patient evening of 10/07/2017. The patient slept reasonably well previous evening, but complains of being depressed. Received Xanax 2. REVIEW OF SYSTEMS: No CV, , pulmonary, eye system symptoms on review. Reliability fair. MENTAL STATUS EXAM: Reasonably oriented. Speech coherent, abstraction fair, computation impaired, language function intact. Mood and affect still depressed, anxious, but improved. LABORATORY DATA: Reviewed. IMPRESSION: Unchanged from initial note. PLAN: Continue current psychotropics mentioned in my initial note. MAN Scooter BASHIR MD DR: CARRILLO/praful JOB#: [id number] / [id number]
[2017-10-08 16:14] VITALS: BP 102/65
--- NOTE | 2017-10-08 19:53 | PDOC ---
Exam Note: Edwin Note: Please also refer to the separate dictated note~for this date of service dictated separately.~Patient seen individually. Discussed the patient with Nursing staff reviewed the chart.~Reviewed interim history and current functioning. Reviewed vital signs,~Labs/ Radiology~and current medications noted below. Continue current treatment with the changes noted in the dictated addendum note Assessment: Vital Signs: Vital Signs Date Time Temp Pulse Resp B/P (MAP) Pulse Ox O2 Delivery O2 Flow Rate FiO2 10/08/17 16:14 98.4 105 18 102/65 (77) 96 10/07/17 16:17 Room Air I&O Intake and Output 10/08/17 07:00 Intake Total 1200 ml Balance 1200 ml Intake Oral 1200 ml Current Medications: Meds: Current Medications Acetaminophen (Tylenol) 650 mg PRN Q6HRS PRN PO PAIN / TEMP Last administered on 09/29/17 03:19; Start 09/28/17 at 20:45 Multi-Ingredient Ointment (Analgesic [place]) 1 declan PRN QID PRN TP MUSCLE PAIN; Start 09/28/17 at 20:45 Al Hydroxide/Mg Hydroxide (Mylanta Plus Xs) 15 ml PRN AFTMEALHC PRN PO DYSPEPSIA; Start 09/28/17 at 20:45 Magnesium Hydroxide (Milk Of Magnesia) 2,400 mg PRN QHS PRN PO CONSTIPATION Last administered on 10/04/17 19:46; Start 09/28/17 at 20:45 Alprazolam (Xanax) 0.5 mg PRN Q4HRS PRN PO ANXIETY / AGITATION Last administered on 10/08/17 11:10; Start 09/28/17 at 21:30 Chlordiazepoxide/ Clidinium (Librax) 1 cap DAILY PO Last administered on 11:45; Start 09/29/17 at 09:00; Stop 09/29/17 at 20:22; Status DC Mirtazapine (Remeron) 15 mg QHS PO Last administered on 10/07/17 20:34; Start 09/28/17 at 22:00 Citalopram Hydrobromide (CeleXA) 40 mg DAILY PO Last administered on 09/29/17 08:55; Start 09/29/17 at 09:00; Stop 09/29/17 at 19:38; Status DC Trimethoprim/ Sulfamethoxazole (Bactrim Ds) 1 tab 1X ONCE PO Last administered on 09/29/17 01:31; Start 09/29/17 at 01:30; Stop 09/29/17 at 01:31 ; Status DC Metoclopramide HCl (Reglan) 5 mg TIDACHC PO Last administered on 10/08/17 17: 12; Start 09/29/17 at 08:45 Pantoprazole Sodium (Protonix) 40 mg DAILYAC PO Last administered on 08:43; Start 09/29/17 at 09:00 Polyethylene Glycol (miraLAX) 17 gm DAILY PO Last administered on 10/08/17 08 :44; Start 09/29/17 at 09:00 Potassium Chloride (Klor-Con) 20 meq DAILY PO Last administered on 10/08/17 08:44; Start 09/29/17 at 09:00 Sucralfate (Carafate) 1 gm BIDBFRMEAL PO Last administered on 10/08/17 17:12 ; Start 09/29/17 at 11:00 Oxycodone HCl (Roxicodone) 5 mg PRN BID PRN PO PAIN; Start 09/29/17 at 08:45 Quetiapine Fumarate (SEROquel) 12.5 mg BID92 PO Last administered on 10/05/17 08:31; Start 09/30/17 at 09:00; Stop 10/05/17 at 11:54; Status DC Duloxetine HCl (Cymbalta) 30 mg DAILY PO Last administered on 10/02/17 09:18; Start 09/30/17 at 09:00; Stop 10/02/17 at 19:09; Status DC Chlordiazepoxide/ Clidinium (Librax) 1 cap TID PO Last administered on 13:14; Start 09/29/17 at 21:00; Stop 09/30/17 at 18:43; Status DC Ondansetron HCl (Zofran Odt) 4 mg Q4HRS PO Last administered on 10/01/17 23:17 ; Start 09/30/17 at 10:00; Stop 10/02/17 at 05:35; Status DC Chlordiazepoxide/ Clidinium (Librax) 1 cap BID PO Last administered on 09:33; Start 09/30/17 at 21:00; Stop 10/03/17 at 20:59; Status DC Chlordiazepoxide/ Clidinium (Librax) 1 cap DAILY PO Last administered on 09:20; Start 10/04/17 at 09:00; Stop 10/07/17 at 08:59; Status DC Ondansetron HCl (Zofran Odt) 4 mg PRN Q4HRS PRN PO NAUSEA; Start 10/03/17 at 04 :00; Stop 10/03/17 at 04:00; Status DC Ondansetron HCl (Zofran Odt) 4 mg PRN Q4HRS PRN PO NAUSEA Last administered on 10/02/17 07:25; Start 10/02/17 at 07:30 Vitamin D (Vitamin D3) 50,000 unit WEEKLY PO Last administered on 10/02/17 19: 49; Start 10/02/17 at 20:00 Duloxetine HCl (Cymbalta) 40 mg DAILY PO Last administered on 10/08/17 08:44 ; Start 10/03/17 at 09:00 Quetiapine Fumarate (SEROquel) 12.5 mg TID PO Last administered on 10/08/17 14:13; Start 10/05/17 at 14:00 Active Scripts Active Reported Miralax (Polyethylene Glycol 3350) 17 Gm Powd.pack 17 Gm PO DAILY Klor-Con M20 (Potassium Chloride) 20 Meq Tab.er.prt 20 Meq PO DAILY Librax Capsule (Chlordiazepoxide/Clidinium Br) 1 Each Capsule 1 Each PO DAILY Sucralfate 1 Gm Tablet 1 Gm PO BID Escitalopram Oxalate 20 Mg Tablet 20 Mg PO DAILY Pantoprazole Sodium 40 Mg Tablet.dr 40 Mg PO DAILY Mirtazapine 15 Mg Tablet 15 Mg PO QHS Oxycodone Hcl 5 Mg Capsule 5 Mg PO PRN BID PRN Reglan (Metoclopramide Hcl) 10 Mg Tablet 5 Mg PO TIDACHC Alprazolam 0.5 Mg Tablet 0.5 Mg PO PRN Q4HRS PRN I have reviewed the current psychotropics carefully including drug interactions. Risk benefit ratio favors no change other than as noted in my dictated progress note. Diagnosis: Problems: (1) Anxiety disorder (2) Impulse control disorder (3) Major depressive disorder, recurrent episode (4) Panic disorder with agoraphobia and severe panic attacks MELISSA BASHIR MD Oct 08, 2017 19:53
[2017-10-08] MEDS: MIRTAZAPINE 15 MG TABLET PO SCH (20:09)
[2017-10-09 05:51] VITALS: BP 103/63
[2017-10-09] MEDS: SUCRALFATE 1 GM TABLET. PO SCH ×2 (08:24→17:04)
[2017-10-09] MEDS: DULoxetine HCL 20 MG CAPSULE.DR PO SCH (08:25)
[2017-10-09] MEDS: METOCLOPRAMIDE 5 MG TABLET PO SCH ×4 (08:25→20:03)
[2017-10-09] MEDS: POLYETHYLENE GLYCOL 3350 17 GM PACKET. PO SCH (08:25)
[2017-10-09] MEDS: POTASSIUM CHLORIDE 20 MEQ TABLET.ER. PO SCH (08:25)
[2017-10-09] MEDS: QUEtiapine 25 MG TABLET. PO SCH ×3 (08:25→20:01)
[2017-10-09] MEDS: PANTOPRAZOLE 40 MG TABLET. PO SCH (08:25)
[2017-10-09] MEDS: CHOLECALCIFEROL (VITAMIN D3) 50,000 UNIT CAPSULE PO SCH (08:26)
[2017-10-09 15:53] VITALS: BP 122/72
[2017-10-09] MEDS: MIRTAZAPINE 15 MG TABLET PO SCH (20:01)
--- NOTE | 2017-10-09 21:21 | PDOC ---
Exam Note: Edwin Note: Please also refer to the separate dictated note~for this date of service dictated separately.~Patient seen individually. Discussed the patient with Nursing staff reviewed the chart.~Reviewed interim history and current functioning. Reviewed vital signs,~Labs/ Radiology~and current medications noted below. Continue current treatment with the changes noted in the dictated addendum note Assessment: Vital Signs: Vital Signs Date Time Temp Pulse Resp B/P (MAP) Pulse Ox O2 Delivery O2 Flow Rate FiO2 10/09/17 15:53 99.6 87 20 122/72 (89) 99 10/07/17 16:17 Room Air I&O Intake and Output 10/09/17 06:59 Intake Total 960 ml Balance 960 ml Intake Oral 960 ml Current Medications: Meds: Current Medications Acetaminophen (Tylenol) 650 mg PRN Q6HRS PRN PO PAIN / TEMP Last administered on 09/29/17 03:19; Start 09/28/17 at 20:45 Multi-Ingredient Ointment (Analgesic [place]) 1 declan PRN QID PRN TP MUSCLE PAIN; Start 09/28/17 at 20:45 Al Hydroxide/Mg Hydroxide (Mylanta Plus Xs) 15 ml PRN AFTMEALHC PRN PO DYSPEPSIA; Start 09/28/17 at 20:45 Magnesium Hydroxide (Milk Of Magnesia) 2,400 mg PRN QHS PRN PO CONSTIPATION Last administered on 10/04/17 19:46; Start 09/28/17 at 20:45 Alprazolam (Xanax) 0.5 mg PRN Q4HRS PRN PO ANXIETY / AGITATION Last administered on 10/08/17 20:09; Start 09/28/17 at 21:30 Chlordiazepoxide/ Clidinium (Librax) 1 cap DAILY PO Last administered on 11:45; Start 09/29/17 at 09:00; Stop 09/29/17 at 20:22; Status DC Mirtazapine (Remeron) 15 mg QHS PO Last administered on 10/09/17 20:01; Start 09/28/17 at 22:00 Citalopram Hydrobromide (CeleXA) 40 mg DAILY PO Last administered on 09/29/17 08:55; Start 09/29/17 at 09:00; Stop 09/29/17 at 19:38; Status DC Trimethoprim/ Sulfamethoxazole (Bactrim Ds) 1 tab 1X ONCE PO Last administered on 09/29/17 01:31; Start 09/29/17 at 01:30; Stop 09/29/17 at 01:31 ; Status DC Metoclopramide HCl (Reglan) 5 mg TIDACHC PO Last administered on 10/09/17 20: 03; Start 09/29/17 at 08:45 Pantoprazole Sodium (Protonix) 40 mg DAILYAC PO Last administered on 08:25; Start 09/29/17 at 09:00 Polyethylene Glycol (miraLAX) 17 gm DAILY PO Last administered on 10/09/17 08 :25; Start 09/29/17 at 09:00 Potassium Chloride (Klor-Con) 20 meq DAILY PO Last administered on 10/09/17 08:25; Start 09/29/17 at 09:00 Sucralfate (Carafate) 1 gm BIDBFRMEAL PO Last administered on 10/09/17 17:04 ; Start 09/29/17 at 11:00 Oxycodone HCl (Roxicodone) 5 mg PRN BID PRN PO PAIN; Start 09/29/17 at 08:45 Quetiapine Fumarate (SEROquel) 12.5 mg BID92 PO Last administered on 10/05/17 08:31; Start 09/30/17 at 09:00; Stop 10/05/17 at 11:54; Status DC Duloxetine HCl (Cymbalta) 30 mg DAILY PO Last administered on 10/02/17 09:18; Start 09/30/17 at 09:00; Stop 10/02/17 at 19:09; Status DC Chlordiazepoxide/ Clidinium (Librax) 1 cap TID PO Last administered on 13:14; Start 09/29/17 at 21:00; Stop 09/30/17 at 18:43; Status DC Ondansetron HCl (Zofran Odt) 4 mg Q4HRS PO Last administered on 10/01/17 23:17 ; Start 09/30/17 at 10:00; Stop 10/02/17 at 05:35; Status DC Chlordiazepoxide/ Clidinium (Librax) 1 cap BID PO Last administered on 09:33; Start 09/30/17 at 21:00; Stop 10/03/17 at 20:59; Status DC Chlordiazepoxide/ Clidinium (Librax) 1 cap DAILY PO Last administered on 09:20; Start 10/04/17 at 09:00; Stop 10/07/17 at 08:59; Status DC Ondansetron HCl (Zofran Odt) 4 mg PRN Q4HRS PRN PO NAUSEA; Start 10/03/17 at 04 :00; Stop 10/03/17 at 04:00; Status DC Ondansetron HCl (Zofran Odt) 4 mg PRN Q4HRS PRN PO NAUSEA Last administered on 10/02/17 07:25; Start 10/02/17 at 07:30 Vitamin D (Vitamin D3) 50,000 unit WEEKLY PO Last administered on 10/09/17 08 :26; Start 10/02/17 at 20:00 Duloxetine HCl (Cymbalta) 40 mg DAILY PO Last administered on 10/09/17 08:25 ; Start 10/03/17 at 09:00; Stop 10/09/17 at 18:34; Status DC Quetiapine Fumarate (SEROquel) 12.5 mg TID PO Last administered on 10/09/17 20:01; Start 10/05/17 at 14:00 Duloxetine HCl (Cymbalta) 60 mg DAILY PO ; Start 10/10/17 at 09:00 Active Scripts Active Reported Miralax (Polyethylene Glycol 3350) 17 Gm Powd.pack 17 Gm PO DAILY Klor-Con M20 (Potassium Chloride) 20 Meq Tab.er.prt 20 Meq PO DAILY Librax Capsule (Chlordiazepoxide/Clidinium Br) 1 Each Capsule 1 Each PO DAILY Sucralfate 1 Gm Tablet 1 Gm PO BID Escitalopram Oxalate 20 Mg Tablet 20 Mg PO DAILY Pantoprazole Sodium 40 Mg Tablet.dr 40 Mg PO DAILY Mirtazapine 15 Mg Tablet 15 Mg PO QHS Oxycodone Hcl 5 Mg Capsule 5 Mg PO PRN BID PRN Reglan (Metoclopramide Hcl) 10 Mg Tablet 5 Mg PO TIDACHC Alprazolam 0.5 Mg Tablet 0.5 Mg PO PRN Q4HRS PRN I have reviewed the current psychotropics carefully including drug interactions. Risk benefit ratio favors no change other than as noted in my dictated progress note. Diagnosis: Problems: (1) Anxiety disorder (2) Impulse control disorder (3) Major depressive disorder, recurrent episode (4) Panic disorder with agoraphobia and severe panic attacks MELISSA BASHIR MD Oct 09, 2017 21:21
--- NOTE | 2017-10-09 23:06 | PN ---
DATE: 10/08/2017 PSYCHIATRIC PROGRESS NOTE This is a late entry of 10/08/2017 covers elements not covered in my initial note of 10/08/2017. I met with the patient in the evening of 10/08/2017. The patient remains somewhat anxious, spends much time in her room because she states getting away from other stimuli on the unit helps the anxiety. During the lengthy individual visit evening of 10/08/2017, we processed cognitive behavioral ways to improve mood and anxiety. REVIEW OF SYSTEMS: No CV, , pulmonary, eye, ENT system symptoms on review. Reliability fair. She does complain of the anxiety. MENTAL STATUS EXAM: Reasonably oriented. Speech coherent, abstraction fair, computation impaired, language function intact, attention span short. Mood and affect still somewhat anxious. LABORATORY DATA: Reviewed. IMPRESSION: Unchanged from initial note. PLAN: Continue current psychotropics mentioned in my initial note. Adjust further as clinically indicated. MELISSA BASHIR MD DR: CARRILLO/praful JOB#: [id number] / [id number]
[2017-10-10 05:50] VITALS: BP 116/63
[2017-10-10] MEDS: PANTOPRAZOLE 40 MG TABLET. PO SCH (08:10)
[2017-10-10] MEDS: QUEtiapine 25 MG TABLET. PO SCH ×3 (08:10→20:20)
[2017-10-10] MEDS: SUCRALFATE 1 GM TABLET. PO SCH ×2 (08:10→17:29)
[2017-10-10] MEDS: POLYETHYLENE GLYCOL 3350 17 GM PACKET. PO SCH (08:10)
[2017-10-10] MEDS: POTASSIUM CHLORIDE 20 MEQ TABLET.ER. PO SCH (08:10)
[2017-10-10] MEDS: METOCLOPRAMIDE 5 MG TABLET PO SCH ×4 (08:10→20:22)
[2017-10-10] MEDS: DULoxetine HCL 60 MG CAPSULE.DR PO SCH (08:11)
[2017-10-10 11:52] LABS: BILIRUBIN,URINE NEG (NEG); CLARITY,URINE CLEAR; COLOR,URINE YELLOW; GLUCOSE,URINE NEG (NEG)
[2017-10-10 11:53] LABS: BACTERIA,URINE 0 /HPF (0-FEW); NITRITE,URINE NEG (NEG); RBC,URINE 0 /HPF (0-2); UROBILINOGEN,URINE 0.2 mg/dL (0.2 mg/dL); WBC,URINE 0 /HPF (0-4)
[2017-10-10] MEDS ORDERED: PHENAZOPYRIDINE 100 MG TABLET. PO PRN (16:00)
[2017-10-10 16:03] VITALS: BP 100/66
[2017-10-10] MEDS: MIRTAZAPINE 15 MG TABLET PO SCH (20:21)
[2017-10-10] MEDS: ALPRAZolam 0.5 MG TABLET PO PRN (21:32)
--- NOTE | 2017-10-10 22:03 | PDOC ---
Exam Note: Edwin Note: Please also refer to the separate dictated note~for this date of service dictated separately.~Patient seen individually. Discussed the patient with Nursing staff reviewed the chart.~Reviewed interim history and current functioning. Reviewed vital signs,~Labs/ Radiology~and current medications noted below. Continue current treatment with the changes noted in the dictated addendum note Assessment: Vital Signs: Vital Signs Date Time Temp Pulse Resp B/P (MAP) Pulse Ox O2 Delivery O2 Flow Rate FiO2 10/10/17 16:03 98.9 100 18 100/66 (77) 96 10/07/17 16:17 Room Air I&O Intake and Output 10/10/17 07:00 Intake Total 1320 ml Balance 1320 ml Intake Oral 1320 ml Labs: Laboratory Tests Test 10/10/17 11:25 Urine Collection Type Unknown Urine Color Yellow Urine Clarity Clear Urine pH 7.0 Urine Specific [place] 1.015 Urine Protein Neg (NEG-TRACE) Urine Glucose (UA) Neg mg/dL (NEG) Urine Ketones (Stick) Neg mg/dL (NEG) Urine Blood Neg (NEG) Urine Nitrite Neg (NEG) Urine Bilirubin Neg (NEG) Urine Urobilinogen Dipstick 0.2 mg/dL (0.2 mg/dL) Urine Leukocyte Esterase Neg (NEG) Urine RBC 0 /HPF (0-2) Urine WBC 0 /HPF (0-4) Urine Squamous Epithelial Cells None /LPF Urine Bacteria 0 /HPF (0-FEW) Current Medications: Meds: Current Medications Acetaminophen (Tylenol) 650 mg PRN Q6HRS PRN PO PAIN / TEMP Last administered on 09/29/17 03:19; Start 09/28/17 at 20:45 Multi-Ingredient Ointment (Analgesic [place]) 1 declan PRN QID PRN TP MUSCLE PAIN; Start 09/28/17 at 20:45 Al Hydroxide/Mg Hydroxide (Mylanta Plus Xs) 15 ml PRN AFTMEALHC PRN PO DYSPEPSIA; Start 09/28/17 at 20:45 Magnesium Hydroxide (Milk Of Magnesia) 2,400 mg PRN QHS PRN PO CONSTIPATION Last administered on 10/04/17 19:46; Start 09/28/17 at 20:45 Alprazolam (Xanax) 0.5 mg PRN Q4HRS PRN PO ANXIETY / AGITATION Last administered on 10/10/17 21:32; Start 09/28/17 at 21:30 Chlordiazepoxide/ Clidinium (Librax) 1 cap DAILY PO Last administered on 11:45; Start 09/29/17 at 09:00; Stop 09/29/17 at 20:22; Status DC Mirtazapine (Remeron) 15 mg QHS PO Last administered on 10/10/17 20:21; Start 09/28/17 at 22:00 Citalopram Hydrobromide (CeleXA) 40 mg DAILY PO Last administered on 09/29/17 08:55; Start 09/29/17 at 09:00; Stop 09/29/17 at 19:38; Status DC Trimethoprim/ Sulfamethoxazole (Bactrim Ds) 1 tab 1X ONCE PO Last administered on 09/29/17 01:31; Start 09/29/17 at 01:30; Stop 09/29/17 at 01:31 ; Status DC Metoclopramide HCl (Reglan) 5 mg TIDACHC PO Last administered on 10/10/17 20: 22; Start 09/29/17 at 08:45 Pantoprazole Sodium (Protonix) 40 mg DAILYAC PO Last administered on 08:10; Start 09/29/17 at 09:00 Polyethylene Glycol (miraLAX) 17 gm DAILY PO Last administered on 10/10/17 08 :10; Start 09/29/17 at 09:00 Potassium Chloride (Klor-Con) 20 meq DAILY PO Last administered on 10/10/17 08:10; Start 09/29/17 at 09:00 Sucralfate (Carafate) 1 gm BIDBFRMEAL PO Last administered on 10/10/17 17:29 ; Start 09/29/17 at 11:00 Oxycodone HCl (Roxicodone) 5 mg PRN BID PRN PO PAIN; Start 09/29/17 at 08:45 Quetiapine Fumarate (SEROquel) 12.5 mg BID92 PO Last administered on 10/05/17 08:31; Start 09/30/17 at 09:00; Stop 10/05/17 at 11:54; Status DC Duloxetine HCl (Cymbalta) 30 mg DAILY PO Last administered on 10/02/17 09:18; Start 09/30/17 at 09:00; Stop 10/02/17 at 19:09; Status DC Chlordiazepoxide/ Clidinium (Librax) 1 cap TID PO Last administered on 13:14; Start 09/29/17 at 21:00; Stop 09/30/17 at 18:43; Status DC Ondansetron HCl (Zofran Odt) 4 mg Q4HRS PO Last administered on 10/01/17 23:17 ; Start 09/30/17 at 10:00; Stop 10/02/17 at 05:35; Status DC Chlordiazepoxide/ Clidinium (Librax) 1 cap BID PO Last administered on 09:33; Start 09/30/17 at 21:00; Stop 10/03/17 at 20:59; Status DC Chlordiazepoxide/ Clidinium (Librax) 1 cap DAILY PO Last administered on 09:20; Start 10/04/17 at 09:00; Stop 10/07/17 at 08:59; Status DC Ondansetron HCl (Zofran Odt) 4 mg PRN Q4HRS PRN PO NAUSEA; Start 10/03/17 at 04 :00; Stop 10/03/17 at 04:00; Status DC Ondansetron HCl (Zofran Odt) 4 mg PRN Q4HRS PRN PO NAUSEA Last administered on 10/02/17 07:25; Start 10/02/17 at 07:30 Vitamin D (Vitamin D3) 50,000 unit WEEKLY PO Last administered on 10/09/17 08 :26; Start 10/02/17 at 20:00 Duloxetine HCl (Cymbalta) 40 mg DAILY PO Last administered on 10/09/17 08:25 ; Start 10/03/17 at 09:00; Stop 10/09/17 at 18:34; Status DC Quetiapine Fumarate (SEROquel) 12.5 mg TID PO Last administered on 10/10/17 20:20; Start 10/05/17 at 14:00 Duloxetine HCl (Cymbalta) 60 mg DAILY PO Last administered on 10/10/17 08:11 ; Start 10/10/17 at 09:00 Phenazopyridine HCl (Pyridium) 100 mg PRN TID PRN PO URINARY PAIN Last administered on 10/10/17t 17:30; Start 10/10/17 at 16:00 Active Scripts Active Reported Miralax (Polyethylene Glycol 3350) 17 Gm Powd.pack 17 Gm PO DAILY Klor-Con M20 (Potassium Chloride) 20 Meq Tab.er.prt 20 Meq PO DAILY Librax Capsule (Chlordiazepoxide/Clidinium Br) 1 Each Capsule 1 Each PO DAILY Sucralfate 1 Gm Tablet 1 Gm PO BID Escitalopram Oxalate 20 Mg Tablet 20 Mg PO DAILY Pantoprazole Sodium 40 Mg Tablet.dr 40 Mg PO DAILY Mirtazapine 15 Mg Tablet 15 Mg PO QHS Oxycodone Hcl 5 Mg Capsule 5 Mg PO PRN BID PRN Reglan (Metoclopramide Hcl) 10 Mg Tablet 5 Mg PO TIDACHC Alprazolam 0.5 Mg Tablet 0.5 Mg PO PRN Q4HRS PRN I have reviewed the current psychotropics carefully including drug interactions. Risk benefit ratio favors no change other than as noted in my dictated progress note. Diagnosis: Problems: (1) Anxiety disorder (2) Impulse control disorder (3) Major depressive disorder, recurrent episode (4) Panic disorder with agoraphobia and severe panic attacks MELISSA BASHIR MD Oct 10, 2017 22:03
--- NOTE | 2017-10-11 05:27 | PN ---
DATE: 10/09/2017 PSYCHIATRIC PROGRESS NOTE This late entry of 10/09/2017 covers elements not covered in my initial note of 10/09/2017. I met with the patient in the evening of 10/09/2017. The patient slept 8-1/2 hours previous evening, somewhat anxious, depressed. Discussed with social service staff and son visited her over the weekend, left a message indicating he felt she was quite depressed. No PRNs have been given on 10/09/2017. She is a little more social. REVIEW OF SYSTEMS: No CV, , pulmonary, eye system symptoms on review. Does admit to ongoing anxiety. MENTAL STATUS EXAM: Reasonably oriented. Speech is coherent, abstraction fair, computation impaired, language function intact, attention span short. Mood and affect still somewhat anxious, labile at times. LABORATORY DATA: Reviewed. IMPRESSION: Unchanged from initial note. PLAN: Increase Cymbalta from 40 mg a day to 60 mg a day. Rest psychotropics unchanged from admission. MELISSA BASHIR MD DR: CARRILLO/praful JOB#: [id number] / [id number]
[2017-10-11 06:13] VITALS: BP 106/57
[2017-10-11] MEDS: DULoxetine HCL 60 MG CAPSULE.DR PO SCH (08:27)
[2017-10-11] MEDS: METOCLOPRAMIDE 5 MG TABLET PO SCH ×4 (08:27→20:27)
[2017-10-11] MEDS: QUEtiapine 25 MG TABLET. PO SCH ×3 (08:27→20:27)
[2017-10-11] MEDS: PANTOPRAZOLE 40 MG TABLET. PO SCH (08:28)
[2017-10-11] MEDS: POLYETHYLENE GLYCOL 3350 17 GM PACKET. PO SCH (08:28)
[2017-10-11] MEDS: SUCRALFATE 1 GM TABLET. PO SCH ×2 (08:28→18:09)
[2017-10-11] MEDS: POTASSIUM CHLORIDE 20 MEQ TABLET.ER. PO SCH (08:28)
[2017-10-11] MEDS: ALPRAZolam 0.5 MG TABLET PO PRN (09:38)
[2017-10-11] MEDS: ACETAMINOPHEN 325 MG TABLET PO PRN (09:39)
[2017-10-11 16:23] VITALS: BP 105/57
--- NOTE | 2017-10-11 20:02 | PDOC ---
Exam Note: Edwin Note: Please also refer to the separate dictated note~for this date of service dictated separately.~Patient seen individually. Discussed the patient with Nursing staff reviewed the chart.~Reviewed interim history and current functioning. Reviewed vital signs,~Labs/ Radiology~and current medications noted below. Continue current treatment with the changes noted in the dictated addendum note Assessment: Vital Signs: Vital Signs Date Time Temp Pulse Resp B/P (MAP) Pulse Ox O2 Delivery O2 Flow Rate FiO2 10/11/17 16:23 97.5 88 18 105/57 (73) 99 10/07/17 16:17 Room Air I&O Intake and Output 10/11/17 07:00 Intake Total 1200 ml Balance 1200 ml Intake Oral 1200 ml Current Medications: Meds: Current Medications Acetaminophen (Tylenol) 650 mg PRN Q6HRS PRN PO PAIN / TEMP Last administered on 10/11/17 09:39; Start 09/28/17 at 20:45 Multi-Ingredient Ointment (Analgesic [place]) 1 declan PRN QID PRN TP MUSCLE PAIN; Start 09/28/17 at 20:45 Al Hydroxide/Mg Hydroxide (Mylanta Plus Xs) 15 ml PRN AFTMEALHC PRN PO DYSPEPSIA; Start 09/28/17 at 20:45 Magnesium Hydroxide (Milk Of Magnesia) 2,400 mg PRN QHS PRN PO CONSTIPATION Last administered on 10/04/17 19:46; Start 09/28/17 at 20:45 Alprazolam (Xanax) 0.5 mg PRN Q4HRS PRN PO ANXIETY / AGITATION Last administered on 10/11/17 09:38; Start 09/28/17 at 21:30 Chlordiazepoxide/ Clidinium (Librax) 1 cap DAILY PO Last administered on 11:45; Start 09/29/17 at 09:00; Stop 09/29/17 at 20:22; Status DC Mirtazapine (Remeron) 15 mg QHS PO Last administered on 10/10/17 20:21; Start 09/28/17 at 22:00 Citalopram Hydrobromide (CeleXA) 40 mg DAILY PO Last administered on 09/29/17 08:55; Start 09/29/17 at 09:00; Stop 09/29/17 at 19:38; Status DC Trimethoprim/ Sulfamethoxazole (Bactrim Ds) 1 tab 1X ONCE PO Last administered on 09/29/17 01:31; Start 09/29/17 at 01:30; Stop 09/29/17 at 01:31 ; Status DC Metoclopramide HCl (Reglan) 5 mg TIDACHC PO Last administered on 10/11/17 18: 08; Start 09/29/17 at 08:45 Pantoprazole Sodium (Protonix) 40 mg DAILYAC PO Last administered on 08:28; Start 09/29/17 at 09:00 Polyethylene Glycol (miraLAX) 17 gm DAILY PO Last administered on 10/11/17 08 :28; Start 09/29/17 at 09:00 Potassium Chloride (Klor-Con) 20 meq DAILY PO Last administered on 10/11/17 08:28; Start 09/29/17 at 09:00 Sucralfate (Carafate) 1 gm BIDBFRMEAL PO Last administered on 10/11/17 18:09 ; Start 09/29/17 at 11:00 Oxycodone HCl (Roxicodone) 5 mg PRN BID PRN PO PAIN; Start 09/29/17 at 08:45 Quetiapine Fumarate (SEROquel) 12.5 mg BID92 PO Last administered on 10/05/17 08:31; Start 09/30/17 at 09:00; Stop 10/05/17 at 11:54; Status DC Duloxetine HCl (Cymbalta) 30 mg DAILY PO Last administered on 10/02/17 09:18; Start 09/30/17 at 09:00; Stop 10/02/17 at 19:09; Status DC Chlordiazepoxide/ Clidinium (Librax) 1 cap TID PO Last administered on 13:14; Start 09/29/17 at 21:00; Stop 09/30/17 at 18:43; Status DC Ondansetron HCl (Zofran Odt) 4 mg Q4HRS PO Last administered on 10/01/17 23:17 ; Start 09/30/17 at 10:00; Stop 10/02/17 at 05:35; Status DC Chlordiazepoxide/ Clidinium (Librax) 1 cap BID PO Last administered on 09:33; Start 09/30/17 at 21:00; Stop 10/03/17 at 20:59; Status DC Chlordiazepoxide/ Clidinium (Librax) 1 cap DAILY PO Last administered on 09:20; Start 10/04/17 at 09:00; Stop 10/07/17 at 08:59; Status DC Ondansetron HCl (Zofran Odt) 4 mg PRN Q4HRS PRN PO NAUSEA; Start 10/03/17 at 04 :00; Stop 10/03/17 at 04:00; Status DC Ondansetron HCl (Zofran Odt) 4 mg PRN Q4HRS PRN PO NAUSEA Last administered on 10/02/17 07:25; Start 10/02/17 at 07:30 Vitamin D (Vitamin D3) 50,000 unit WEEKLY PO Last administered on 10/09/17 08 :26; Start 10/02/17 at 20:00 Duloxetine HCl (Cymbalta) 40 mg DAILY PO Last administered on 10/09/17 08:25 ; Start 10/03/17 at 09:00; Stop 10/09/17 at 18:34; Status DC Quetiapine Fumarate (SEROquel) 12.5 mg TID PO Last administered on 10/11/17 15:06; Start 10/05/17 at 14:00 Duloxetine HCl (Cymbalta) 60 mg DAILY PO Last administered on 10/11/17 08:27 ; Start 10/10/17 at 09:00 Phenazopyridine HCl (Pyridium) 100 mg PRN TID PRN PO URINARY PAIN Last administered on 10/10/17 17:30; Start 10/10/17 at 16:00 Active Scripts Active Reported Miralax (Polyethylene Glycol 3350) 17 Gm Powd.pack 17 Gm PO DAILY Klor-Con M20 (Potassium Chloride) 20 Meq Tab.er.prt 20 Meq PO DAILY Librax Capsule (Chlordiazepoxide/Clidinium Br) 1 Each Capsule 1 Each PO DAILY Sucralfate 1 Gm Tablet 1 Gm PO BID Escitalopram Oxalate 20 Mg Tablet 20 Mg PO DAILY Pantoprazole Sodium 40 Mg Tablet.dr 40 Mg PO DAILY Mirtazapine 15 Mg Tablet 15 Mg PO QHS Oxycodone Hcl 5 Mg Capsule 5 Mg PO PRN BID PRN Reglan (Metoclopramide Hcl) 10 Mg Tablet 5 Mg PO TIDACHC Alprazolam 0.5 Mg Tablet 0.5 Mg PO PRN Q4HRS PRN I have reviewed the current psychotropics carefully including drug interactions. Risk benefit ratio favors no change other than as noted in my dictated progress note. Diagnosis: Problems: (1) Anxiety disorder (2) Impulse control disorder (3) Major depressive disorder, recurrent episode (4) Panic disorder with agoraphobia and severe panic attacks MELISSA BASHIR MD Oct 11, 2017 20:02
[2017-10-11] MEDS: MIRTAZAPINE 15 MG TABLET PO SCH (20:27)
--- NOTE | 2017-10-11 23:17 | PN ---
DATE: 10/10/2017 PSYCHIATRIC PROGRESS NOTE This is a late entry for 10/10/2017 covers elements not covered in my initial note of 10/10/2017. SUBJECTIVE: I met with the patient evening of 10/10/2017. The patient not needed any PRNs during the day, which is an improvement. She has had some burning while urinating and started on Pyridium. REVIEW OF SYSTEMS: Still positive for some anxiety and the symptoms noted burning on urination. No CV, pulmonary, eye, ENT system symptoms on review. MENTAL STATUS EXAM: Reasonably oriented. Speech coherent, abstraction fair, computation impaired, language function intact. Mood and affect still anxious, but showing improvement. LABORATORY DATA: Reviewed. IMPRESSION: Unchanged from initial note. Major depressive disorder, recurrent, in partial remission; anxiety disorder, unspecified; impulse control disorder, unspecified; panic disorder. PLAN: Continue psychotropics mentioned in my initial note including Cymbalta, which was increased to 60 mg a day, Seroquel at current dosage along with Xanax p.r.n., Remeron 15 mg at bedtime. Librax has been tapered and stopped. MELISSA BASHIR MD DR: CARRILLO/praful JOB#: [id number] / [id number]
[2017-10-12] MEDS: ONDANSETRON ODT 4 MG TAB.RAPDIS PO PRN (04:59)
[2017-10-12 06:09] VITALS: BP 101/60
[2017-10-12] MEDS: METOCLOPRAMIDE 5 MG TABLET PO SCH ×4 (07:43→20:00)
[2017-10-12] MEDS: PANTOPRAZOLE 40 MG TABLET. PO SCH (07:43)
[2017-10-12] MEDS: SUCRALFATE 1 GM TABLET. PO SCH ×2 (07:43→17:11)
[2017-10-12] MEDS: DULoxetine HCL 60 MG CAPSULE.DR PO SCH (10:06)
[2017-10-12] MEDS: QUEtiapine 25 MG TABLET. PO SCH ×3 (10:06→20:00)
[2017-10-12] MEDS: POTASSIUM CHLORIDE 20 MEQ TABLET.ER. PO SCH (10:06)
[2017-10-12] MEDS: POLYETHYLENE GLYCOL 3350 17 GM PACKET. PO SCH (10:07)
[2017-10-12] MEDS: ALPRAZolam 0.5 MG TABLET PO PRN ×2 (11:36→22:36)
[2017-10-12 16:23] VITALS: BP 100/64
[2017-10-12] MEDS: MIRTAZAPINE 15 MG TABLET PO SCH (20:00)
--- NOTE | 2017-10-12 20:04 | PDOC ---
Exam Note: Edwin Note: Please also refer to the separate dictated note~for this date of service dictated separately.~Patient seen individually. Discussed the patient with Nursing staff reviewed the chart.~Reviewed interim history and current functioning. Reviewed vital signs,~Labs/ Radiology~and current medications noted below. Continue current treatment with the changes noted in the dictated addendum note Assessment: Vital Signs: Vital Signs Date Time Temp Pulse Resp B/P (MAP) Pulse Ox O2 Delivery O2 Flow Rate FiO2 10/12/17 16:23 98.9 92 16 100/64 (76) 97 10/07/17 16:17 Room Air I&O Intake and Output 10/12/17 07:00 Intake Total 1200 ml Balance 1200 ml Intake Oral 1200 ml Current Medications: Meds: Current Medications Acetaminophen (Tylenol) 650 mg PRN Q6HRS PRN PO PAIN / TEMP Last administered on 10/11/17 09:39; Start 09/28/17 at 20:45 Multi-Ingredient Ointment (Analgesic [place]) 1 declan PRN QID PRN TP MUSCLE PAIN; Start 09/28/17 at 20:45 Al Hydroxide/Mg Hydroxide (Mylanta Plus Xs) 15 ml PRN AFTMEALHC PRN PO DYSPEPSIA; Start 09/28/17 at 20:45 Magnesium Hydroxide (Milk Of Magnesia) 2,400 mg PRN QHS PRN PO CONSTIPATION Last administered on 10/04/17 19:46; Start 09/28/17 at 20:45 Alprazolam (Xanax) 0.5 mg PRN Q4HRS PRN PO ANXIETY / AGITATION Last administered on 10/12/17 11:36; Start 09/28/17 at 21:30 Chlordiazepoxide/ Clidinium (Librax) 1 cap DAILY PO Last administered on 11:45; Start 09/29/17 at 09:00; Stop 09/29/17 at 20:22; Status DC Mirtazapine (Remeron) 15 mg QHS PO Last administered on 10/12/17 20:00; Start 09/28/17 at 22:00 Citalopram Hydrobromide (CeleXA) 40 mg DAILY PO Last administered on 09/29/17 08:55; Start 09/29/17 at 09:00; Stop 09/29/17 at 19:38; Status DC Trimethoprim/ Sulfamethoxazole (Bactrim Ds) 1 tab 1X ONCE PO Last administered on 09/29/17 01:31; Start 09/29/17 at 01:30; Stop 09/29/17 at 01:31 ; Status DC Metoclopramide HCl (Reglan) 5 mg TIDACHC PO Last administered on 10/12/17 20: 00; Start 09/29/17 at 08:45 Pantoprazole Sodium (Protonix) 40 mg DAILYAC PO Last administered on 07:43; Start 09/29/17 at 09:00 Polyethylene Glycol (miraLAX) 17 gm DAILY PO Last administered on 10/12/17 10 :07; Start 09/29/17 at 09:00 Potassium Chloride (Klor-Con) 20 meq DAILY PO Last administered on 10/12/17 10:06; Start 09/29/17 at 09:00 Sucralfate (Carafate) 1 gm BIDBFRMEAL PO Last administered on 10/12/17 17:11 ; Start 09/29/17 at 11:00 Oxycodone HCl (Roxicodone) 5 mg PRN BID PRN PO PAIN; Start 09/29/17 at 08:45 Quetiapine Fumarate (SEROquel) 12.5 mg BID92 PO Last administered on 10/05/17 08:31; Start 09/30/17 at 09:00; Stop 10/05/17 at 11:54; Status DC Duloxetine HCl (Cymbalta) 30 mg DAILY PO Last administered on 10/02/17 09:18; Start 09/30/17 at 09:00; Stop 10/02/17 at 19:09; Status DC Chlordiazepoxide/ Clidinium (Librax) 1 cap TID PO Last administered on 13:14; Start 09/29/17 at 21:00; Stop 09/30/17 at 18:43; Status DC Ondansetron HCl (Zofran Odt) 4 mg Q4HRS PO Last administered on 10/01/17 23:17 ; Start 09/30/17 at 10:00; Stop 10/02/17 at 05:35; Status DC Chlordiazepoxide/ Clidinium (Librax) 1 cap BID PO Last administered on 09:33; Start 09/30/17 at 21:00; Stop 10/03/17 at 20:59; Status DC Chlordiazepoxide/ Clidinium (Librax) 1 cap DAILY PO Last administered on 09:20; Start 10/04/17 at 09:00; Stop 10/07/17 at 08:59; Status DC Ondansetron HCl (Zofran Odt) 4 mg PRN Q4HRS PRN PO NAUSEA; Start 10/03/17 at 04 :00; Stop 10/03/17 at 04:00; Status DC Ondansetron HCl (Zofran Odt) 4 mg PRN Q4HRS PRN PO NAUSEA Last administered on 10/12/17 04:59; Start 10/02/17 at 07:30 Vitamin D (Vitamin D3) 50,000 unit WEEKLY PO Last administered on 10/09/17 08 :26; Start 10/02/17 at 20:00 Duloxetine HCl (Cymbalta) 40 mg DAILY PO Last administered on 10/09/17 08:25 ; Start 10/03/17 at 09:00; Stop 10/09/17 at 18:34; Status DC Quetiapine Fumarate (SEROquel) 12.5 mg TID PO Last administered on 10/12/17 20:00; Start 10/05/17 at 14:00 Duloxetine HCl (Cymbalta) 60 mg DAILY PO Last administered on 10/12/17 10:06 ; Start 10/10/17 at 09:00 Phenazopyridine HCl (Pyridium) 100 mg PRN TID PRN PO URINARY PAIN Last administered on 10/10/17 17:30; Start 10/10/17 at 16:00 Active Scripts Active Reported Miralax (Polyethylene Glycol 3350) 17 Gm Powd.pack 17 Gm PO DAILY Klor-Con M20 (Potassium Chloride) 20 Meq Tab.er.prt 20 Meq PO DAILY Librax Capsule (Chlordiazepoxide/Clidinium Br) 1 Each Capsule 1 Each PO DAILY Sucralfate 1 Gm Tablet 1 Gm PO BID Escitalopram Oxalate 20 Mg Tablet 20 Mg PO DAILY Pantoprazole Sodium 40 Mg Tablet.dr 40 Mg PO DAILY Mirtazapine 15 Mg Tablet 15 Mg PO QHS Oxycodone Hcl 5 Mg Capsule 5 Mg PO PRN BID PRN Reglan (Metoclopramide Hcl) 10 Mg Tablet 5 Mg PO TIDACHC Alprazolam 0.5 Mg Tablet 0.5 Mg PO PRN Q4HRS PRN I have reviewed the current psychotropics carefully including drug interactions. Risk benefit ratio favors no change other than as noted in my dictated progress note. Diagnosis: Problems: (1) Anxiety disorder (2) Impulse control disorder (3) Major depressive disorder, recurrent episode (4) Panic disorder with agoraphobia and severe panic attacks MELISSA BASHIR MD Oct 12, 2017 20:04
[2017-10-13 06:21] VITALS: BP 104/73
[2017-10-13] MEDS: PANTOPRAZOLE 40 MG TABLET. PO SCH (08:19)
[2017-10-13] MEDS: POLYETHYLENE GLYCOL 3350 17 GM PACKET. PO SCH (08:19)
[2017-10-13] MEDS: DULoxetine HCL 60 MG CAPSULE.DR PO SCH (08:19)
[2017-10-13] MEDS: METOCLOPRAMIDE 5 MG TABLET PO SCH ×4 (08:19→20:35)
[2017-10-13] MEDS: POTASSIUM CHLORIDE 20 MEQ TABLET.ER. PO SCH (08:19)
[2017-10-13] MEDS: QUEtiapine 25 MG TABLET. PO SCH ×3 (08:19→20:35)
[2017-10-13] MEDS: SUCRALFATE 1 GM TABLET. PO SCH ×2 (08:19→17:31)
[2017-10-13] MEDS: ALPRAZolam 0.5 MG TABLET PO PRN (14:14)
[2017-10-13 16:11] VITALS: BP 103/62
[2017-10-13] MEDS: MIRTAZAPINE 15 MG TABLET PO SCH (20:35)
[2017-10-14 06:09] VITALS: BP 105/67
--- NOTE | 2017-10-14 07:26 | PN ---
DATE: 10/11/2017 This is a late entry for 10/11/2017 and covers elements not covered in my initial note of 10/11/2017. I met with the patient the evening of 10/11/2017. Overall, the patient remains somewhat depressed, but better than before. Slept 7-1/2 hours previous evening, anxious in the morning, using deep breathing exercises later in the day to help her anxiety, more interactive and brighter even with her significant other, Sumit when he visited in the afternoon. REVIEW OF SYSTEMS: Positive for some anxiety. No CV, , pulmonary, eye system symptoms on review. Reasonably oriented. I met with her in her room. MENTAL STATUS EXAMINATION: Speech coherent, abstraction fair, computation impaired, language function intact, attention span short. Mood and affect improved. LABORATORY DATA: Reviewed. IMPRESSION: Unchanged from initial note. PLAN: No change from a psychiatric standpoint. MAN Scooter BASHIR MD DR: CARRILLO/praful JOB#: [id number] / [id number]
--- NOTE | 2017-10-14 07:27 | PN ---
DATE: 10/12/2017 This is a late entry for 10/12/2017 and covers elements not covered in my initial note of 10/12/2017. SUBJECTIVE: The patient was also staffed at a treatment team meeting with the entire team morning of 10/12/2017. The patient complained of some nausea in the morning, complained of being tired, but overall mood is better. REVIEW OF SYSTEMS: No CV, , pulmonary, eye system symptoms on review other than above. MENTAL STATUS EXAM: Reasonably oriented. Speech coherent, abstraction fair, computation impaired, language function intact. Mood and affect showing improvement, less labile, less anxious. LABORATORY DATA: Reviewed. IMPRESSION: Unchanged from initial note. PLAN: Continue current psychotropics as mentioned in my initial note. Adjust further as clinically indicated. Consider transition to independent living over the weekend. MAN Scooter BASHIR MD DR: CARRILLO/praful JOB#: [id number] / [id number]
[2017-10-14 08:07] LABS: BASO % 1 % (0-3); EOS # 0.1 x10^3/uL (0.0-0.7); EOS % 2 % (0-3); HEMATOCRIT 37.4 % (36.0-47.0); HEMOGLOBIN 12.6 g/dL (12.0-15.5); LYMPH # 1.1 x10^3/uL (1.0-4.8); LYMPH % 32 % (24-48); MEAN CORPUSCULAR HEMOGLOBIN 34 pg (25-35); MEAN CORPUSCULAR HGB CONC 34 g/dL (31-37); MEAN CORPUSCULAR VOLUME 102 fL (79-100); MONO # 0.6 x10^3/uL (0.0-1.1); MONO % 16 % (0-9); NEUT # 1.7 x10^3uL (1.8-7.7); NEUT % 49 % (31-73); PLATELET COUNT 260 x10^3/uL (140-400); RED BLOOD COUNT 3.66 x10^6/uL (3.50-5.40); RED CELL DISTRIBUTION WIDTH 13.4 % (11.5-14.5); WHITE BLOOD COUNT 3.5 x10^3/uL (4.0-11.0)
[2017-10-14 08:25] LABS: ALBUMIN 3.3 g/dL (3.4-5.0); ALBUMIN/GLOBULIN RATIO 0.9 (1.0-1.7); CALCIUM 8.7 mg/dL (8.5-10.1); CREATININE 0.6 mg/dL (0.6-1.0); GFR 98.3; POTASSIUM 3.7 mmol/L (3.5-5.1); TOTAL BILIRUBIN 0.2 mg/dL (0.2-1.0); TOTAL PROTEIN 6.9 g/dL (6.4-8.2)
[2017-10-14] MEDS: SUCRALFATE 1 GM TABLET. PO SCH ×2 (08:45→16:30)
[2017-10-14] MEDS: POLYETHYLENE GLYCOL 3350 17 GM PACKET. PO SCH (08:46)
[2017-10-14] MEDS: POTASSIUM CHLORIDE 20 MEQ TABLET.ER. PO SCH (08:46)
[2017-10-14] MEDS: METOCLOPRAMIDE 5 MG TABLET PO SCH ×4 (08:46→19:47)
[2017-10-14] MEDS: QUEtiapine 25 MG TABLET. PO SCH ×3 (08:46→19:48)
[2017-10-14] MEDS: DULoxetine HCL 60 MG CAPSULE.DR PO SCH (08:46)
[2017-10-14] MEDS: PANTOPRAZOLE 40 MG TABLET. PO SCH (08:46)
--- NOTE | 2017-10-14 10:17 | PDOC ---
Exam Note: Edwin Note: This is late entry for date of service 10/13/2017.Please also refer to the separate dictated note~for this date of service dictated separately.~Patient seen individually. Discussed the patient with Nursing staff reviewed the chart.~ Reviewed interim history and current functioning. Reviewed vital signs,~Labs/ Radiology~and current medications noted below. Continue current treatment with the changes noted in the dictated addendum note Assessment: Vital Signs: VS - Last 72 Hours, by Label Date Time Temp Pulse Resp B/P (MAP) Pulse Ox O2 Delivery O2 Flow Rate FiO2 10/14/17 06:09 97.9 79 18 105/67 (80) 97 10/13/17 16:11 98.2 116 16 103/62 (76) 97 Room Air 10/13/17 06:21 97.4 66 16 104/73 (83) 96 Room Air 10/12/17 16:23 98.9 92 16 100/64 (76) 97 10/12/17 06:09 98.0 85 18 101/60 (74) 96 10/11/17 16:23 97.5 88 18 105/57 (73) 99 Vital Signs Date Time Temp Pulse Resp B/P (MAP) Pulse Ox O2 Delivery O2 Flow Rate FiO2 10/14/17 06:09 97.9 79 18 105/67 (80) 97 10/13/17 16:11 Room Air I&O Intake and Output 10/14/17 07:00 Intake Total 720 ml Balance 720 ml Intake Oral 720 ml Labs: Laboratory Tests Test 10/14/17 07:55 White Blood Count 3.5 x10^3/uL (4.0-11.0) L Red Blood Count 3.66 x10^6/uL (3.50-5.40) Hemoglobin 12.6 g/dL (12.0-15.5) Hematocrit 37.4 % (36.0-47.0) Mean Corpuscular Volume 102 fL (79-100) H Mean Corpuscular Hemoglobin 34 pg (25-35) Mean Corpuscular Hemoglobin Concent 34 g/dL (31-37) Red Cell Distribution Width 13.4 % (11.5-14.5) Platelet Count 260 x10^3/uL (140-400) Neutrophils (%) (Auto) 49 % (31-73) Lymphocytes (%) (Auto) 32 % (24-48) Monocytes (%) (Auto) 16 % (0-9) H Eosinophils (%) (Auto) 2 % (0-3) Basophils (%) (Auto) 1 % (0-3) Neutrophils # (Auto) 1.7 x10^3uL (1.8-7.7) L Lymphocytes # (Auto) 1.1 x10^3/uL (1.0-4.8) Monocytes # (Auto) 0.6 x10^3/uL (0.0-1.1) Eosinophils # (Auto) 0.1 x10^3/uL (0.0-0.7) Basophils # (Auto) 0.0 x10^3/uL (0.0-0.2) Sodium Level 140 mmol/L (136-145) Potassium Level 3.7 mmol/L (3.5-5.1) Chloride Level 101 mmol/L (98-107) Carbon Dioxide Level 32 mmol/L (21-32) Anion Gap 7 (6-14) Blood Urea Nitrogen 15 mg/dL (7-20) Creatinine 0.6 mg/dL (0.6-1.0) Estimated GFR (Cockcroft-Gault) 98.3 BUN/Creatinine Ratio 25 (6-20) H Glucose Level 95 mg/dL (70-99) Calcium Level 8.7 mg/dL (8.5-10.1) Total Bilirubin 0.2 mg/dL (0.2-1.0) Aspartate Amino Transferase (AST) 20 U/L (15-37) Alanine Aminotransferase (ALT) 25 U/L (14-59) Alkaline Phosphatase 89 U/L (46-116) Total Protein 6.9 g/dL (6.4-8.2) Albumin 3.3 g/dL (3.4-5.0) L Albumin/Globulin Ratio 0.9 (1.0-1.7) L Current Medications: Meds: Current Medications Acetaminophen (Tylenol) 650 mg PRN Q6HRS PRN PO PAIN / TEMP Last administered on 10/11/17t 09:39; Start 09/28/17 at 20:45 Multi-Ingredient Ointment (Analgesic [place]) 1 declan PRN QID PRN TP MUSCLE PAIN; Start 09/28/17 at 20:45 Al Hydroxide/Mg Hydroxide (Mylanta Plus Xs) 15 ml PRN AFTMEALHC PRN PO DYSPEPSIA; Start 09/28/17 at 20:45 Magnesium Hydroxide (Milk Of Magnesia) 2,400 mg PRN QHS PRN PO CONSTIPATION Last administered on 10/04/17 19:46; Start 09/28/17 at 20:45 Alprazolam (Xanax) 0.5 mg PRN Q4HRS PRN PO ANXIETY / AGITATION Last administered on 10/13/17 14:14; Start 09/28/17 at 21:30 Chlordiazepoxide/ Clidinium (Librax) 1 cap DAILY PO Last administered on 11:45; Start 09/29/17 at 09:00; Stop 09/29/17 at 20:22; Status DC Mirtazapine (Remeron) 15 mg QHS PO Last administered on 10/13/17 20:35; Start 09/28/17 at 22:00 Citalopram Hydrobromide (CeleXA) 40 mg DAILY PO Last administered on 09/29/17 08:55; Start 09/29/17 at 09:00; Stop 09/29/17 at 19:38; Status DC Trimethoprim/ Sulfamethoxazole (Bactrim Ds) 1 tab 1X ONCE PO Last administered on 09/29/17 01:31; Start 09/29/17 at 01:30; Stop 09/29/17 at 01:31 ; Status DC Metoclopramide HCl (Reglan) 5 mg TIDACHC PO Last administered on 10/14/17 08: 46; Start 09/29/17 at 08:45 Pantoprazole Sodium (Protonix) 40 mg DAILYAC PO Last administered on 08:46; Start 09/29/17 at 09:00 Polyethylene Glycol (miraLAX) 17 gm DAILY PO Last administered on 10/14/17 08 :46; Start 09/29/17 at 09:00 Potassium Chloride (Klor-Con) 20 meq DAILY PO Last administered on 10/14/17 08:46; Start 09/29/17 at 09:00 Sucralfate (Carafate) 1 gm BIDBFRMEAL PO Last administered on 10/14/17 08:45 ; Start 09/29/17 at 11:00 Oxycodone HCl (Roxicodone) 5 mg PRN BID PRN PO PAIN; Start 09/29/17 at 08:45 Quetiapine Fumarate (SEROquel) 12.5 mg BID92 PO Last administered on 10/05/17 08:31; Start 09/30/17 at 09:00; Stop 10/05/17 at 11:54; Status DC Duloxetine HCl (Cymbalta) 30 mg DAILY PO Last administered on 10/02/17 09:18; Start 09/30/17 at 09:00; Stop 10/02/17 at 19:09; Status DC Chlordiazepoxide/ Clidinium (Librax) 1 cap TID PO Last administered on 13:14; Start 09/29/17 at 21:00; Stop 09/30/17 at 18:43; Status DC Ondansetron HCl (Zofran Odt) 4 mg Q4HRS PO Last administered on 10/01/17 23:17 ; Start 09/30/17 at 10:00; Stop 10/02/17 at 05:35; Status DC Chlordiazepoxide/ Clidinium (Librax) 1 cap BID PO Last administered on 09:33; Start 09/30/17 at 21:00; Stop 10/03/17 at 20:59; Status DC Chlordiazepoxide/ Clidinium (Librax) 1 cap DAILY PO Last administered on 09:20; Start 10/04/17 at 09:00; Stop 10/07/17 at 08:59; Status DC Ondansetron HCl (Zofran Odt) 4 mg PRN Q4HRS PRN PO NAUSEA; Start 10/03/17 at 04 :00; Stop 10/03/17 at 04:00; Status DC Ondansetron HCl (Zofran Odt) 4 mg PRN Q4HRS PRN PO NAUSEA Last administered on 10/12/17 04:59; Start 10/02/17 at 07:30 Vitamin D (Vitamin D3) 50,000 unit WEEKLY PO Last administered on 10/09/17 08 :26; Start 10/02/17 at 20:00 Duloxetine HCl (Cymbalta) 40 mg DAILY PO Last administered on 10/09/17 08:25 ; Start 10/03/17 at 09:00; Stop 10/09/17 at 18:34; Status DC Quetiapine Fumarate (SEROquel) 12.5 mg TID PO Last administered on 10/14/17 08:46; Start 10/05/17 at 14:00 Duloxetine HCl (Cymbalta) 60 mg DAILY PO Last administered on 10/14/17 08:46 ; Start 10/10/17 at 09:00 Phenazopyridine HCl (Pyridium) 100 mg PRN TID PRN PO URINARY PAIN Last administered on 10/10/17 17:30; Start 10/10/17 at 16:00 Active Scripts Active Reported Miralax (Polyethylene Glycol 3350) 17 Gm Powd.pack 17 Gm PO DAILY Klor-Con M20 (Potassium Chloride) 20 Meq Tab.er.prt 20 Meq PO DAILY Librax Capsule (Chlordiazepoxide/Clidinium Br) 1 Each Capsule 1 Each PO DAILY Sucralfate 1 Gm Tablet 1 Gm PO BID Escitalopram Oxalate 20 Mg Tablet 20 Mg PO DAILY Pantoprazole Sodium 40 Mg Tablet.dr 40 Mg PO DAILY Mirtazapine 15 Mg Tablet 15 Mg PO QHS Oxycodone Hcl 5 Mg Capsule 5 Mg PO PRN BID PRN Reglan (Metoclopramide Hcl) 10 Mg Tablet 5 Mg PO TIDACHC Alprazolam 0.5 Mg Tablet 0.5 Mg PO PRN Q4HRS PRN I have reviewed the current psychotropics carefully including drug interactions. Risk benefit ratio favors no change other than as noted in my dictated progress note. Diagnosis: Problems: (1) Anxiety disorder (2) Impulse control disorder (3) Major depressive disorder, recurrent episode (4) Panic disorder with agoraphobia and severe panic attacks MELISSA BASHIR MD Oct 14, 2017 10:17
[2017-10-14] MEDS: ALPRAZolam 0.5 MG TABLET PO PRN ×2 (10:41→19:48)
[2017-10-14 16:29] VITALS: BP 118/78
[2017-10-14] MEDS: MIRTAZAPINE 15 MG TABLET PO SCH (19:48)
--- NOTE | 2017-10-14 21:38 | PDOC ---
Exam Note: Edwin Note: Please also refer to the separate dictated note~for this date of service dictated separately.~Patient seen individually. Discussed the patient with Nursing staff reviewed the chart.~Reviewed interim history and current functioning. Reviewed vital signs,~Labs/ Radiology~and current medications noted below. Continue current treatment with the changes noted in the dictated addendum note Assessment: Vital Signs: Vital Signs Date Time Temp Pulse Resp B/P (MAP) Pulse Ox O2 Delivery O2 Flow Rate FiO2 10/14/17 16:29 98.3 98 20 118/78 (91) 95 10/13/17 16:11 Room Air I&O Intake and Output 10/14/17 07:00 Intake Total 720 ml Balance 720 ml Intake Oral 720 ml Labs: Laboratory Tests Test 10/14/17 07:55 White Blood Count 3.5 x10^3/uL (4.0-11.0) L Red Blood Count 3.66 x10^6/uL (3.50-5.40) Hemoglobin 12.6 g/dL (12.0-15.5) Hematocrit 37.4 % (36.0-47.0) Mean Corpuscular Volume 102 fL (79-100) H Mean Corpuscular Hemoglobin 34 pg (25-35) Mean Corpuscular Hemoglobin Concent 34 g/dL (31-37) Red Cell Distribution Width 13.4 % (11.5-14.5) Platelet Count 260 x10^3/uL (140-400) Neutrophils (%) (Auto) 49 % (31-73) Lymphocytes (%) (Auto) 32 % (24-48) Monocytes (%) (Auto) 16 % (0-9) H Eosinophils (%) (Auto) 2 % (0-3) Basophils (%) (Auto) 1 % (0-3) Neutrophils # (Auto) 1.7 x10^3uL (1.8-7.7) L Lymphocytes # (Auto) 1.1 x10^3/uL (1.0-4.8) Monocytes # (Auto) 0.6 x10^3/uL (0.0-1.1) Eosinophils # (Auto) 0.1 x10^3/uL (0.0-0.7) Basophils # (Auto) 0.0 x10^3/uL (0.0-0.2) Sodium Level 140 mmol/L (136-145) Potassium Level 3.7 mmol/L (3.5-5.1) Chloride Level 101 mmol/L (98-107) Carbon Dioxide Level 32 mmol/L (21-32) Anion Gap 7 (6-14) Blood Urea Nitrogen 15 mg/dL (7-20) Creatinine 0.6 mg/dL (0.6-1.0) Estimated GFR (Cockcroft-Gault) 98.3 BUN/Creatinine Ratio 25 (6-20) H Glucose Level 95 mg/dL (70-99) Calcium Level 8.7 mg/dL (8.5-10.1) Total Bilirubin 0.2 mg/dL (0.2-1.0) Aspartate Amino Transferase (AST) 20 U/L (15-37) Alanine Aminotransferase (ALT) 25 U/L (14-59) Alkaline Phosphatase 89 U/L (46-116) Total Protein 6.9 g/dL (6.4-8.2) Albumin 3.3 g/dL (3.4-5.0) L Albumin/Globulin Ratio 0.9 (1.0-1.7) L Current Medications: Meds: Current Medications Acetaminophen (Tylenol) 650 mg PRN Q6HRS PRN PO PAIN / TEMP Last administered on 10/11/17 09:39; Start 09/28/17 at 20:45 Multi-Ingredient Ointment (Analgesic Irwin) 1 declan PRN QID PRN TP MUSCLE PAIN; Start 09/28/17 at 20:45 Al Hydroxide/Mg Hydroxide (Mylanta Plus Xs) 15 ml PRN AFTMEALHC PRN PO DYSPEPSIA; Start 09/28/17 at 20:45 Magnesium Hydroxide (Milk Of Magnesia) 2,400 mg PRN QHS PRN PO CONSTIPATION Last administered on 10/04/17 19:46; Start 09/28/17 at 20:45 Alprazolam (Xanax) 0.5 mg PRN Q4HRS PRN PO ANXIETY / AGITATION Last administered on 10/14/17 19:48; Start 09/28/17 at 21:30 Chlordiazepoxide/ Clidinium (Librax) 1 cap DAILY PO Last administered on 11:45; Start 09/29/17 at 09:00; Stop 09/29/17 at 20:22; Status DC Mirtazapine (Remeron) 15 mg QHS PO Last administered on 10/14/17 19:48; Start 09/28/17 at 22:00 Citalopram Hydrobromide (CeleXA) 40 mg DAILY PO Last administered on 09/29/17 08:55; Start 09/29/17 at 09:00; Stop 09/29/17 at 19:38; Status DC Trimethoprim/ Sulfamethoxazole (Bactrim Ds) 1 tab 1X ONCE PO Last administered on 09/29/17 01:31; Start 09/29/17 at 01:30; Stop 09/29/17 at 01:31 ; Status DC Metoclopramide HCl (Reglan) 5 mg TIDACHC PO Last administered on 10/14/17 19: 47; Start 09/29/17 at 08:45 Pantoprazole Sodium (Protonix) 40 mg DAILYAC PO Last administered on 08:46; Start 09/29/17 at 09:00 Polyethylene Glycol (miraLAX) 17 gm DAILY PO Last administered on 10/14/17 08 :46; Start 09/29/17 at 09:00 Potassium Chloride (Klor-Con) 20 meq DAILY PO Last administered on 10/14/17 08:46; Start 09/29/17 at 09:00 Sucralfate (Carafate) 1 gm BIDBFRMEAL PO Last administered on 10/14/17 16:30 ; Start 09/29/17 at 11:00 Oxycodone HCl (Roxicodone) 5 mg PRN BID PRN PO PAIN; Start 09/29/17 at 08:45 Quetiapine Fumarate (SEROquel) 12.5 mg BID92 PO Last administered on 10/05/17 08:31; Start 09/30/17 at 09:00; Stop 10/05/17 at 11:54; Status DC Duloxetine HCl (Cymbalta) 30 mg DAILY PO Last administered on 10/02/17 09:18; Start 09/30/17 at 09:00; Stop 10/02/17 at 19:09; Status DC Chlordiazepoxide/ Clidinium (Librax) 1 cap TID PO Last administered on 13:14; Start 09/29/17 at 21:00; Stop 09/30/17 at 18:43; Status DC Ondansetron HCl (Zofran Odt) 4 mg Q4HRS PO Last administered on 10/01/17 23:17 ; Start 09/30/17 at 10:00; Stop 10/02/17 at 05:35; Status DC Chlordiazepoxide/ Clidinium (Librax) 1 cap BID PO Last administered on 09:33; Start 09/30/17 at 21:00; Stop 10/03/17 at 20:59; Status DC Chlordiazepoxide/ Clidinium (Librax) 1 cap DAILY PO Last administered on 09:20; Start 10/04/17 at 09:00; Stop 10/07/17 at 08:59; Status DC Ondansetron HCl (Zofran Odt) 4 mg PRN Q4HRS PRN PO NAUSEA; Start 10/03/17 at 04 :00; Stop 10/03/17 at 04:00; Status DC Ondansetron HCl (Zofran Odt) 4 mg PRN Q4HRS PRN PO NAUSEA Last administered on 10/12/17 04:59; Start 10/02/17 at 07:30 Vitamin D (Vitamin D3) 50,000 unit WEEKLY PO Last administered on 10/09/17 08 :26; Start 10/02/17 at 20:00 Duloxetine HCl (Cymbalta) 40 mg DAILY PO Last administered on 10/09/17 08:25 ; Start 10/03/17 at 09:00; Stop 10/09/17 at 18:34; Status DC Quetiapine Fumarate (SEROquel) 12.5 mg TID PO Last administered on 10/14/17 13:57; Start 10/05/17 at 14:00; Stop 10/14/17 at 19:01; Status DC Duloxetine HCl (Cymbalta) 60 mg DAILY PO Last administered on 10/14/17 08:46 ; Start 10/10/17 at 09:00 Phenazopyridine HCl (Pyridium) 100 mg PRN TID PRN PO URINARY PAIN Last administered on 10/10/17 17:30; Start 10/10/17 at 16:00 Quetiapine Fumarate (SEROquel) 12.5 mg QID PO Last administered on 10/14/17t 19:48; Start 10/14/17 at 21:00 Active Scripts Active Reported Miralax (Polyethylene Glycol 3350) 17 Gm Powd.pack 17 Gm PO DAILY Klor-Con M20 (Potassium Chloride) 20 Meq Tab.er.prt 20 Meq PO DAILY Librax Capsule (Chlordiazepoxide/Clidinium Br) 1 Each Capsule 1 Each PO DAILY Sucralfate 1 Gm Tablet 1 Gm PO BID Escitalopram Oxalate 20 Mg Tablet 20 Mg PO DAILY Pantoprazole Sodium 40 Mg Tablet.dr 40 Mg PO DAILY Mirtazapine 15 Mg Tablet 15 Mg PO QHS Oxycodone Hcl 5 Mg Capsule 5 Mg PO PRN BID PRN Reglan (Metoclopramide Hcl) 10 Mg Tablet 5 Mg PO TIDACHC Alprazolam 0.5 Mg Tablet 0.5 Mg PO PRN Q4HRS PRN I have reviewed the current psychotropics carefully including drug interactions. Risk benefit ratio favors no change other than as noted in my dictated progress note. Diagnosis: Problems: (1) Anxiety disorder (2) Impulse control disorder (3) Major depressive disorder, recurrent episode (4) Panic disorder with agoraphobia and severe panic attacks MELISSA BASHIR MD Oct 14, 2017 21:38
[2017-10-14] MEDS ORDERED: ACET325T9 PO (23:45)
[2017-10-14] MEDS ORDERED: CHOL500021 PO (23:46)
[2017-10-14] MEDS ORDERED: DULO60CA6 PO (23:48)
[2017-10-14] MEDS ORDERED: MAG30ORA2 PO (23:50)
[2017-10-14] MEDS ORDERED: METH29OI TP (23:51)
[2017-10-14] MEDS ORDERED: MAGN2400 PO (23:51)
[2017-10-14] MEDS ORDERED: QUET25TA5 PO (23:58)
[2017-10-15] MEDS: ALPRAZolam 0.5 MG TABLET PO PRN ×2 (03:08→10:15)
[2017-10-15 05:44] VITALS: BP 105/62
--- NOTE | 2017-10-15 08:35 | PN ---
DATE: 10/14/2017 This note covers elements not covered in my initial note of 10/14/2017. SUBJECTIVE: I met with the patient evening of 10/14/2017. She remains intermittently anxious, received Xanax in the morning and this seemed to help. I met with her in her room. REVIEW OF SYSTEMS: No CV, , pulmonary, eye, ENT system symptoms on review. MENTAL STATUS EXAM: Oriented reasonably. Speech coherent, abstraction fair, computation impaired, language function intact. Mood and affect still somewhat anxious, showing improvement. LABORATORY DATA: Reviewed. IMPRESSION: Unchanged from initial note. PLAN: Increase Seroquel from 12.5 mg 3 times a day to 4 times a day. Continue rest unchanged. Transition to outpatient treatment on 10/15/2017. MAN Scooter BASHIR MD DR: CARRILLO/praful JOB#: [id number] / [id number]
--- NOTE | 2017-10-15 08:37 | PN ---
DATE: 10/14/2017 This note covers elements not covered in my initial note. MAN Scooter BASHIR MD DR: Florencia JOB#: [id number] / [id number]
--- NOTE | 2017-10-15 08:37 | PN ---
DATE: 10/13/2017 This late entry 10/13/2017 covers elements not covered in my initial note 10/13/2017, met with the patient in the evening of 10/13/2017 in her room. She has been quite withdrawn, took Xanax the previous evening at 2236, compliant with the medications, still somewhat depressed, anxious, but showing improvement. REVIEW OF SYSTEMS: No CV, , pulmonary, eye, ENT system symptoms on review. MENTAL STATUS EXAM: Reasonably oriented. Speech coherent, abstraction fair, computation impaired, language function intact, still somewhat anxious, dysphoric. No suicidal or homicidal ideation. IMPRESSION: Unchanged from initial note. Major depressive disorder, recurrent, in partial remission; anxiety disorder, unspecified versus generalized anxiety disorder. PLAN: Continue psychotropics mentioned in my initial note. MAN Scooter BASHIR MD DR: CARRILLO/praful JOB#: [id number] / [id number]
[2017-10-15] MEDS: DULoxetine HCL 60 MG CAPSULE.DR PO SCH (08:55)
[2017-10-15] MEDS: METOCLOPRAMIDE 5 MG TABLET PO SCH ×2 (08:55→11:09)
[2017-10-15] MEDS: POTASSIUM CHLORIDE 20 MEQ TABLET.ER. PO SCH (08:55)
[2017-10-15] MEDS: QUEtiapine 25 MG TABLET. PO SCH (08:55)
[2017-10-15] MEDS: PANTOPRAZOLE 40 MG TABLET. PO SCH (08:55)
[2017-10-15] MEDS: POLYETHYLENE GLYCOL 3350 17 GM PACKET. PO SCH (08:55)
[2017-10-15] MEDS: SUCRALFATE 1 GM TABLET. PO SCH (08:55)
--- NOTE | 2017-10-15 19:44 | PDOC ---
Exam Note: Edwin Note: Please also refer to the separate dictated note~for this date of service dictated separately.~Patient seen individually. Discussed the patient with Nursing staff reviewed the chart.~Reviewed interim history and current functioning. Reviewed vital signs,~Labs/ Radiology~and current medications noted below. Continue current treatment with the changes noted in the dictated addendum note Assessment: Vital Signs: Vital Signs Date Time Temp Pulse Resp B/P (MAP) Pulse Ox O2 Delivery O2 Flow Rate FiO2 10/15/17 05:44 97.7 88 16 105/62 (76) 98 10/13/17 16:11 Room Air I&O Intake and Output 10/15/17 07:00 Intake Total 840 ml Balance 840 ml Intake Oral 840 ml Current Medications: Meds: Current Medications Acetaminophen (Tylenol) 650 mg PRN Q6HRS PRN PO PAIN / TEMP Last administered on 10/11/17 09:39; Start 09/28/17 at 20:45; Stop 10/15/17 at 11:32; Status DC Multi-Ingredient Ointment (Analgesic [place]) 1 declan PRN QID PRN TP MUSCLE PAIN; Start 09/28/17 at 20:45; Stop 10/15/17 at 11:32; Status DC Al Hydroxide/Mg Hydroxide (Mylanta Plus Xs) 15 ml PRN AFTMEALHC PRN PO DYSPEPSIA; Start 09/28/17 at 20:45; Stop 10/15/17 at 11:32; Status DC Magnesium Hydroxide (Milk Of Magnesia) 2,400 mg PRN QHS PRN PO CONSTIPATION Last administered on 10/04/17 19:46; Start 09/28/17 at 20:45; Stop 10/15/17 at 11:32; Status DC Alprazolam (Xanax) 0.5 mg PRN Q4HRS PRN PO ANXIETY / AGITATION Last administered on 10/15/17 10:15; Start 09/28/17 at 21:30; Stop 10/15/17 at 11 :32; Status DC Chlordiazepoxide/ Clidinium (Librax) 1 cap DAILY PO Last administered on 11:45; Start 09/29/17 at 09:00; Stop 09/29/17 at 20:22; Status DC Mirtazapine (Remeron) 15 mg QHS PO Last administered on 10/14/17 19:48; Start 09/28/17 at 22:00; Stop 10/15/17 at 11:32; Status DC Citalopram Hydrobromide (CeleXA) 40 mg DAILY PO Last administered on 09/29/17 08:55; Start 09/29/17 at 09:00; Stop 09/29/17 at 19:38; Status DC Trimethoprim/ Sulfamethoxazole (Bactrim Ds) 1 tab 1X ONCE PO Last administered on 09/29/17 01:31; Start 09/29/17 at 01:30; Stop 09/29/17 at 01:31 ; Status DC Metoclopramide HCl (Reglan) 5 mg TIDACHC PO Last administered on 10/15/17 11: 09; Start 09/29/17 at 08:45; Stop 10/15/17 at 11:32; Status DC Pantoprazole Sodium (Protonix) 40 mg DAILYAC PO Last administered on 08:55; Start 09/29/17 at 09:00; Stop 10/15/17 at 11:32; Status DC Polyethylene Glycol (miraLAX) 17 gm DAILY PO Last administered on 10/15/17 08 :55; Start 09/29/17 at 09:00; Stop 10/15/17 at 11:32; Status DC Potassium Chloride (Klor-Con) 20 meq DAILY PO Last administered on 10/15/17 08:55; Start 09/29/17 at 09:00; Stop 10/15/17 at 11:32; Status DC Sucralfate (Carafate) 1 gm BIDBFRMEAL PO Last administered on 10/15/17 08:55 ; Start 09/29/17 at 11:00; Stop 10/15/17 at 11:32; Status DC Oxycodone HCl (Roxicodone) 5 mg PRN BID PRN PO PAIN; Start 09/29/17 at 08:45; Stop 10/15/17 at 11:32; Status DC Quetiapine Fumarate (SEROquel) 12.5 mg BID92 PO Last administered on 10/05/17 08:31; Start 09/30/17 at 09:00; Stop 10/05/17 at 11:54; Status DC Duloxetine HCl (Cymbalta) 30 mg DAILY PO Last administered on 10/02/17 09:18; Start 09/30/17 at 09:00; Stop 10/02/17 at 19:09; Status DC Chlordiazepoxide/ Clidinium (Librax) 1 cap TID PO Last administered on 13:14; Start 09/29/17 at 21:00; Stop 09/30/17 at 18:43; Status DC Ondansetron HCl (Zofran Odt) 4 mg Q4HRS PO Last administered on 10/01/17 23:17 ; Start 09/30/17 at 10:00; Stop 10/02/17 at 05:35; Status DC Chlordiazepoxide/ Clidinium (Librax) 1 cap BID PO Last administered on 09:33; Start 09/30/17 at 21:00; Stop 10/03/17 at 20:59; Status DC Chlordiazepoxide/ Clidinium (Librax) 1 cap DAILY PO Last administered on 09:20; Start 10/04/17 at 09:00; Stop 10/07/17 at 08:59; Status DC Ondansetron HCl (Zofran Odt) 4 mg PRN Q4HRS PRN PO NAUSEA; Start 10/03/17 at 04 :00; Stop 10/03/17 at 04:00; Status DC Ondansetron HCl (Zofran Odt) 4 mg PRN Q4HRS PRN PO NAUSEA Last administered on 10/12/17 04:59; Start 10/02/17 at 07:30; Stop 10/15/17 at 11:32; Status DC Vitamin D (Vitamin D3) 50,000 unit WEEKLY PO Last administered on 10/09/17 08 :26; Start 10/02/17 at 20:00; Stop 10/15/17 at 11:32; Status DC Duloxetine HCl (Cymbalta) 40 mg DAILY PO Last administered on 10/09/17 08:25 ; Start 10/03/17 at 09:00; Stop 10/09/17 at 18:34; Status DC Quetiapine Fumarate (SEROquel) 12.5 mg TID PO Last administered on 10/14/17 13:57; Start 10/05/17 at 14:00; Stop 10/14/17 at 19:01; Status DC Duloxetine HCl (Cymbalta) 60 mg DAILY PO Last administered on 10/15/17 08:55 ; Start 10/10/17 at 09:00; Stop 10/15/17 at 11:32; Status DC Phenazopyridine HCl (Pyridium) 100 mg PRN TID PRN PO URINARY PAIN Last administered on 10/10/17 17:30; Start 10/10/17 at 16:00; Stop 10/15/17 at 11 :32; Status DC Quetiapine Fumarate (SEROquel) 12.5 mg QID PO Last administered on 10/15/17 08:55; Start 10/14/17 at 21:00; Stop 10/15/17 at 11:32; Status DC Active Scripts Active Reported Seroquel (Quetiapine Fumarate) 25 Mg Tablet 12.5 Mg PO QID Cymbalta (Duloxetine Hcl) 60 Mg Capsule.dr 60 Mg PO DAILY D3-50 (Cholecalciferol (Vitamin D3)) 50,000 Unit Capsule 50,000 Unit PO WEEKLY Tylenol (Acetaminophen) 325 Mg Tablet 650 Mg PO PRN Q6HRS PRN Miralax (Polyethylene Glycol 3350) 17 Gm Powd.pack 17 Gm PO DAILY Klor-Con M20 (Potassium Chloride) 20 Meq Tab.er.prt 20 Meq PO DAILY Sucralfate 1 Gm Tablet 1 Gm PO BIDBFRMEAL Pantoprazole Sodium 40 Mg Tablet.dr 40 Mg PO DAILYAC Mirtazapine 15 Mg Tablet 15 Mg PO QHS Reglan (Metoclopramide Hcl) 10 Mg Tablet 5 Mg PO TIDACHC Alprazolam 0.5 Mg Tablet 0.5 Mg PO PRN Q4HRS PRN I have reviewed the current psychotropics carefully including drug interactions. Risk benefit ratio favors no change other than as noted in my dictated progress note. Diagnosis: Problems: (1) Panic disorder with agoraphobia and severe panic attacks (2) Major depressive disorder, recurrent episode (3) Impulse control disorder (4) Anxiety disorder MELISSA BASHIR MD Oct 15, 2017 19:44
--- NOTE | 2017-10-16 22:13 | DS ---
DATE OF DISCHARGE: 10/15/2017 DISCHARGE SUMMARY/PSYCHIATRIC PROGRESS NOTE This late entry date of service 10/15/2017 covers elements not covered in my initial note of 10/15/2017. REASON FOR ADMISSION: Please refer to the admission history for details. Briefly, the patient is a 72-year-old female, who was admitted as an emergency after I evaluated her at my office on account of worsening symptoms of depression, anxiety, panic attacks. The patient had been calling me several times as an emergency via the answering service sitting at home, having severe panic. We made many changes in her psychotropics and she had failed several psychiatric admissions and inpatient hospitalizations at [facility]. She walked into the office taking an excessive amount of Xanax to quell her anxiety, was sedated, had difficulty with ambulation, brought in by Sumit, her significant other. She had failed outpatient psychiatric interventions and admitted to feeling hopeless, helpless, worthless and referred for inpatient stabilization. SIGNIFICANT FINDINGS AND CLINICAL COURSE: Following admission, the patient was seen daily individually by myself, followed medically per Dr. Lai/Dr. Duncan. Initially, she was extremely depressed, anxious, having panic attacks, withdrawn. Adjustments were made in her psychotropics. She seemed to respond to a combination of Cymbalta 60 mg a day, Seroquel 12.5 mg 4 times a day, Remeron 15 mg at bedtime, and Xanax 0.5 mg q. 4 hours p.r.n. anxiety, which she was using minimally towards the end. CONDITION AT DISCHARGE: Improved prior to discharge. REVIEW OF SYSTEMS: Positive for anxiety. No CV, , pulmonary, eye system symptoms on review. MENTAL STATUS EXAM: Reasonably oriented. Speech coherent, abstraction fair, computation impaired, language function intact, attention span short. Mood and affect showing improvement. FINAL DIAGNOSES: Major depressive disorder, recurrent, in partial remission; panic disorder with agoraphobia, and anxiety disorder, unspecified. Rest unchanged from admission. DISCHARGE MEDICATIONS: Please refer to MRAD. DISCHARGE INSTRUCTIONS: Outpatient psychiatric followup with myself at the office and psychotherapy and [place] [facility] [place]up with her primary care physician, Dr. Roman. Time for discharge day management greater than 30 minutes. MELISSA Scooter BASHIR MD DR: CARRILLO/praful JOB#: [id number] / [id number]
== END 2017-10-15 11:31 | disposition home or self-care (01) | DRG 885 ==
LOC: ER 17:01 → GEROPSY 19:41
PROVIDERS: ADMIT Psychiatry & Neurology Psychiatry; ATTEND Psychiatry & Neurology Psychiatry
DX: F33.3 Major depressive disorder, recurrent, severe with psychotic symptoms (principal); N39.0 Urinary tract infection, site not specified; K31.84 Gastroparesis; E87.6 Hypokalemia; F17.200 Nicotine dependence, unspecified, uncomplicated; F40.01 Agoraphobia with panic disorder; F41.1 Generalized anxiety disorder; Z96.641 Presence of right artificial hip joint; G89.29 Other chronic pain; K59.00 Constipation, unspecified; F63.9 Impulse disorder, unspecified; K21.9 Gastro-esophageal reflux disease without esophagitis; Z79.899 Other long term (current) drug therapy; Z85.3 Personal history of malignant neoplasm of breast; Z91.14 Patient's other noncompliance with medication regimen
CPT/HCPCS: 36415; 80053; 80061; 80076; 81001; 82306; 82607; 83036; 83540; 83550; 83735; 84436; 84443; 84480; 85025; 86592; 86593; 87086; 93005; J8597; Q0162; 99285-25

== ENCOUNTER 2018-03-19 17:47 | Inpatient (IN) | payer MEDICARE ==
[~2018-03-19] VITALS: Ht 156.2 cm; Wt 72.6 kg
[~2018-03-19 17:47] MED LIST: ACET325T9 PO; ALPR0.5T6 PO; CHLO1CAP PO; CHOL500021 PO; DULO60CA6 PO; ESCITALOPRAM OX20 MG PO; MAG30ORA2 PO; MAGN2400 PO; METH29OI TP; METO10TA81 PO; MIRT15TA3 PO; OXYC5CAP PO; PANT40TA5 PO; POLY17PO5 PO; POTA20TA4 PO; QUET25TA5 PO; SUCR1TAB PO
--- NOTE | 2018-03-19 18:47 | PHYS DOC ---
Past History Past Medical History: Anxiety, Depression, GERD, Other Past Surgical History: Cancer Surgery, Other Alcohol Use: None Drug Use: None Adult General Chief Complaint Chief Complaint: ANXIETY/PANIC ATTACK HPI HPI Patient is a 72 year old female who presents with complaint of generalized anxiety. Patient states she has history of anxiety disorder and follows with Dr. Peterson of psychiatry. Patient states that she was recently adjusted over the last month on her Xanax for treatment and patient states that this has not helped. Patient's symptoms started worsening yesterday and have persisted throughout the day today. Patient states that she has been admitted in the senior behavioral health unit here at [facility] 5 months ago for similar symptoms. The patient states that her anxiety has become uncontrollable at home. The patient states that she has not quite sure what her triggers were for this current episode though she states commonly she starts thinking about things that have stressed her out in the past and states that this usually causes her to have worsening symptoms. Patient denies any unusual somatic symptoms associated with her anxiety, specifically substernal chest pain or severe shortness of breath. Patient states that she is feeling numbness and tingling all over her body and is feeling very irritable which she states is very common for her panic attacks and anxiety. The patient feels that she would best be taken care of in the [facility] behavioral health unit which is why she came to the emergency department today. Patient has not contacted Dr. Peterson and patient is not currently accepted as an inpatient here at [facility]. Review of Systems Review of Systems Constitutional: Denies fever or chills [] Eyes: Denies change in visual acuity, redness, or eye pain [] HENT: Denies nasal congestion or sore throat [] Respiratory: Denies cough or shortness of breath [] Cardiovascular: Denies chest pain or edema[] GI: Denies abdominal pain, nausea, vomiting, bloody stools or diarrhea [] : Denies dysuria or hematuria [] Musculoskeletal: Denies back pain or joint pain [] Integument: Denies rash or skin lesions [] Neurologic: Numbness and tingling all over, denies headache or focal weakness[] All other systems were reviewed and found to be within normal limits, except as documented in this note. Allergies Allergies Allergies Coded Allergies Type Severity Reaction Last Updated Verified No Known Drug Allergies 11/30/17 No Physical Exam Physical Exam Constitutional: Alert, afebrile, appears anxious but is cooperative. [] HENT: Normocephalic, atraumatic, bilateral external ears normal, oropharynx moist, no oral exudates, nose normal. [] Eyes: PERRLA, EOMI, conjunctiva normal, no discharge. [] Neck: Normal range of motion, no tenderness, supple, no stridor. [] Cardiovascular:Heart rate regular rhythm, no murmur [] Lungs & Thorax: Bilateral breath sounds clear to auscultation [] Abdomen: Bowel sounds normal, soft, no tenderness, no masses, no pulsatile masses. [] Skin: Warm, dry, no erythema, no rash. [] Back: No tenderness, no CVA tenderness. [] Extremities: No tenderness, no cyanosis, no clubbing, ROM intact, no edema. [] Neurologic: Alert and oriented X 3, normal motor function, normal sensory function, no focal deficits noted. [] Psychologic: Affect normal, judgement normal, mood anxious. [] Current Patient Data Vital Signs Vital Signs Date Time Temp Pulse Resp B/P (MAP) Pulse Ox O2 Delivery O2 Flow Rate FiO2 03/19/18 17:47 97.8 82 20 100 Room Air Lab Results Laboratory Tests Test 03/19/18 19:00 03/19/18 19:25 Urine Collection Type Unknown Urine Color Yellow Urine Clarity Clear Urine pH 7.0 Urine Specific [place] 1.010 Urine Protein Neg Urine Glucose (UA) Neg mg/dL Urine Ketones (Stick) Neg mg/dL Urine Blood Neg Urine Nitrite Neg Urine Bilirubin Neg Urine Urobilinogen Dipstick 0.2 mg/dL Urine Leukocyte Esterase Small Urine RBC 1-2 /HPF Urine WBC 1-4 /HPF Urine Squamous Epithelial Cells Few /LPF Urine Bacteria 0 /HPF White Blood Count 3.6 x10^3/uL Red Blood Count 4.34 x10^6/uL Hemoglobin 14.4 g/dL Hematocrit 44.6 % Mean Corpuscular Volume 103 fL Mean Corpuscular Hemoglobin 33 pg Mean Corpuscular Hemoglobin Concent 32 g/dL Red Cell Distribution Width 13.2 % Platelet Count 173 x10^3/uL Neutrophils (%) (Auto) 58 % Lymphocytes (%) (Auto) 29 % Monocytes (%) (Auto) 9 % Eosinophils (%) (Auto) 2 % Basophils (%) (Auto) 2 % Neutrophils # (Auto) 2.1 x10^3uL Lymphocytes # (Auto) 1.0 x10^3/uL Monocytes # (Auto) 0.3 x10^3/uL Eosinophils # (Auto) 0.1 x10^3/uL Basophils # (Auto) 0.1 x10^3/uL Sodium Level 140 mmol/L Potassium Level 3.8 mmol/L Chloride Level 101 mmol/L Carbon Dioxide Level 33 mmol/L Anion Gap 6 Blood Urea Nitrogen 14 mg/dL Creatinine 0.7 mg/dL Estimated GFR (Cockcroft-Gault) 82.3 BUN/Creatinine Ratio 20 Glucose Level 73 mg/dL Calcium Level 9.2 mg/dL Magnesium Level 2.2 mg/dL Total Bilirubin 0.2 mg/dL Aspartate Amino Transf (AST/SGOT) 25 U/L Alanine Aminotransferase (ALT/SGPT) 23 U/L Alkaline Phosphatase 115 U/L Total Protein 7.8 g/dL Albumin 3.9 g/dL Albumin/Globulin Ratio 1.0 EKG EKG Interpreted by me: Heart rate 82, sinus rhythm, normal intervals, normal axis, no acute ST/T-wave abnormalities present[] Radiology/Procedures Radiology/Procedures Not performed[] Course & Med Decision Making Course & Med Decision Making Pertinent Labs and Imaging studies reviewed. (See chart for details) Patient was medically screened in the emergency department and was cleared for psychiatric evaluation. The patient was evaluated through tele-psychiatry by Dr. Gibbs. After screening, she recommended that the patient be admitted voluntarily for further psychiatric treatment and stabilization. After screening was completed, the patient was accepted to the senior behavioral health unit here at [facility]. Dragon Disclaimer Dragon Disclaimer This electronic medical record was generated, in whole or in part, using a voice recognition dictation system. Departure Departure: Impression: Primary Impression: Anxiety disorder Additional Impression: Depression Disposition: ADMITTED INPATIENT Admitting Physician: Other Condition: STABLE Referrals: PCP,NO (PCP) Problem Qualifiers Primary Impression: Anxiety disorder Anxiety disorder type: unspecified anxiety disorder Qualified Codes: F41.9 - Anxiety disorder, unspecified Additional Impression: Depression Depression Type: major depressive disorder Major depression recurrence: recurrent Active/Remission status: currently active Major depression episode severity: moderate Qualified Codes: F33.1 - Major depressive disorder, recurrent, moderate ZEKE DENIS MD March 19, 2018 18:47
--- NOTE | 2018-03-19 18:56 | EKG ---
[address] [address] Test Date: 2018-03-19 Test Time: 18:48:09 Pat Name: CLAY TRAN Department: Room: Gender: F Galley Hand: FRAN : 1945 Requested By: ZEKE DENIS Order Number: [id number] Reading MD: Measurements Intervals [place] Rate: 82 P: 90 WA: 160 QRS: 78 QRSD: 72 T: 80 QT: 388 QTc: 456 Interpretive Statements SINUS RHYTHM QRS(T) CONTOUR ABNORMALITY CONSIDER ANTEROLATERAL MYOCARDIAL DAMAGE POSSIBLY ABNORMAL ECG RI6.01 No previous ECG available for comparison
[2018-03-19 19:56] LABS: BASO # 0.1 x10^3/uL (0.0-0.2); BASO % 2 % (0-3); EOS # 0.1 x10^3/uL (0.0-0.7); EOS % 2 % (0-3); HEMATOCRIT 44.6 % (36.0-47.0); HEMOGLOBIN 14.4 g/dL (12.0-15.5); LYMPH % 29 % (24-48); MEAN CORPUSCULAR HEMOGLOBIN 33 pg (25-35); MEAN CORPUSCULAR HGB CONC 32 g/dL (31-37); MEAN CORPUSCULAR VOLUME 103 fL (79-100); MONO # 0.3 x10^3/uL (0.0-1.1); MONO % 9 % (0-9); NEUT # 2.1 x10^3uL (1.8-7.7); NEUT % 58 % (31-73); PLATELET COUNT 173 x10^3/uL (140-400); RED BLOOD COUNT 4.34 x10^6/uL (3.50-5.40); RED CELL DISTRIBUTION WIDTH 13.2 % (11.5-14.5); WHITE BLOOD COUNT 3.6 x10^3/uL (4.0-11.0)
[2018-03-19 20:00] LABS: ALBUMIN 3.9 g/dL (3.4-5.0); CALCIUM 9.2 mg/dL (8.5-10.1); CREATININE 0.7 mg/dL (0.6-1.0); GFR 82.3; MAGNESIUM 2.2 mg/dL (1.8-2.4); POTASSIUM 3.8 mmol/L (3.5-5.1); TOTAL BILIRUBIN 0.2 mg/dL (0.2-1.0); TOTAL PROTEIN 7.8 g/dL (6.4-8.2)
[2018-03-19 20:08] LABS: BACTERIA,URINE 0 /HPF (0-FEW); BILIRUBIN,URINE NEG (NEG); CLARITY,URINE CLEAR; COLOR,URINE YELLOW; GLUCOSE,URINE NEG (NEG); NITRITE,URINE NEG (NEG); SQUAMOUS EPITHELIAL CELL,UR FEW /LPF; UROBILINOGEN,URINE 0.2 mg/dL (0.2 mg/dL)
[2018-03-19] MEDS ORDERED: QUEtiapine 25 MG TABLET. PO STA (21:30)
[2018-03-19] MEDS ORDERED: MIRTAZAPINE 15 MG TABLET PO ONE (21:30)
[2018-03-20] MEDS ORDERED: MAGNESIUM HYDROXIDE 2,400 MG/30 ML ORAL.SUSP. PO PRN
[2018-03-20] MEDS ORDERED: METHYL SALICYLATE/MENTHOL TOPICAL OINTMENT 29GM TUBE. TP PRN
[2018-03-20] MEDS ORDERED: OXYC5CAP PO (00:34)
[2018-03-20] MEDS ORDERED: FLUV50TA2 PO (00:34)
[2018-03-20] MEDS: ALPRAZolam 0.5 MG TABLET PO PRN ×3 (05:16→17:44)
[2018-03-20 06:58] VITALS: BP 110/59
[2018-03-20] MEDS: QUEtiapine 25 MG TABLET. PO SCH ×4 (07:57→19:41)
[2018-03-20] MEDS: POLYETHYLENE GLYCOL 3350 17 GM PACKET. PO SCH (07:58)
[2018-03-20] MEDS: SUCRALFATE 1 GM TABLET. PO SCH (07:58)
[2018-03-20] MEDS: POTASSIUM CHLORIDE 20 MEQ TABLET.ER. PO SCH (07:58)
[2018-03-20] MEDS: MAG HYDROX/AL HYDROX/SIMETH 30 ML ORAL.SUSP PO PRN ×2 (09:45→13:37)
[2018-03-20 13:28] LABS: THYROID STIM HORMONE (TSH) 2.718 uIU/mL (0.358-3.740)
[2018-03-20] MEDS: oxyCODONE IR 5 MG TABLET PO PRN (13:38)
[2018-03-20 13:49] LABS: BASO % 1 % (0-3); EOS # 0.1 x10^3/uL (0.0-0.7); EOS % 1 % (0-3); HEMATOCRIT 41.3 % (36.0-47.0); HEMOGLOBIN 13.5 g/dL (12.0-15.5); LYMPH # 0.7 x10^3/uL (1.0-4.8); LYMPH % 17 % (24-48); MEAN CORPUSCULAR HEMOGLOBIN 33 pg (25-35); MEAN CORPUSCULAR HGB CONC 33 g/dL (31-37); MEAN CORPUSCULAR VOLUME 100 fL (79-100); MONO # 0.5 x10^3/uL (0.0-1.1); MONO % 12 % (0-9); NEUT # 2.7 x10^3uL (1.8-7.7); NEUT % 69 % (31-73); PLATELET COUNT 194 x10^3/uL (140-400); RED BLOOD COUNT 4.13 x10^6/uL (3.50-5.40); RED CELL DISTRIBUTION WIDTH 13.1 % (11.5-14.5); WHITE BLOOD COUNT 3.9 x10^3/uL (4.0-11.0)
[2018-03-20 14:04] LABS: ALBUMIN 3.7 g/dL (3.4-5.0); ALBUMIN/GLOBULIN RATIO 1.1 (1.0-1.7); CALCIUM 8.7 mg/dL (8.5-10.1); CREATININE 0.8 mg/dL (0.6-1.0); GFR 70.5; TOTAL BILIRUBIN 0.4 mg/dL (0.2-1.0); TOTAL PROTEIN 7.1 g/dL (6.4-8.2)
--- NOTE | 2018-03-20 15:14 | RAD ---
EXAM: Abdomen, single view. HISTORY: Pain. COMPARISON: None. FINDINGS: A frontal view of the abdomen is obtained. There are nondistended air-filled loops of bowel throughout the abdomen. There is no transition point to suggest obstruction. There is a right hip arthroplasty. There is lumbar scoliosis. IMPRESSION: Nonobstructive bowel gas pattern. Electronically signed by: Kelsy Ace MD (03/20/2018 3:11 PM) [facility]
[2018-03-20 16:38] VITALS: BP 118/56
[2018-03-20 19:10] LABS: T3 TOTAL 120 ng/dL (71-180); THYROXINE 6.4 ug/dL (4.5-12.0)
[2018-03-20] MEDS: METOCLOPRAMIDE 5 MG TABLET PO SCH (19:43)
[2018-03-20] MEDS: MIRTAZAPINE 15 MG TABLET PO SCH (19:43)
[2018-03-20] MEDS: ACETAMINOPHEN 325 MG TABLET PO PRN (21:18)
--- NOTE | 2018-03-20 23:53 | CONS ---
DATE OF CONSULTATION: 03/20/2018 REASON FOR CONSULTATION: Medical management. HISTORY OF PRESENT ILLNESS: This is a 72-year-old female patient who follows with Dr. Peterson as an outpatient who made some adjustment to her Xanax recently and her symptoms have worsened and have persisted and her anxiety became uncontrollable at home and she apparently contacted Dr. Peterson's office and subsequently she arrived to the Emergency Room where she was evaluated and admitted to [facility] Unit for inpatient psychiatric stabilization. PAST MEDICAL HISTORY: Significant for constipation, gastroesophageal reflux disease, gastroparesis, anxiety and depression. PAST SURGICAL HISTORY: Significant for right total hip arthroplasty and she has also left breast cancer, where she underwent lumpectomy. FAMILY HISTORY: Unremarkable. SOCIAL HISTORY: She [place]. She has a son with 2 grandchildren. She does not smoke, drink alcohol or recreational drugs. She is retired. REVIEW OF SYSTEMS: The patient complained of abdominal pain, that she normally uses oxycodone and/or ibuprofen to alleviate although she denied any nausea or vomiting. Denied any hematemesis, melena or hematochezia. ALLERGIES: She has no known drug allergies. MEDICATIONS: She is currently on the following medications: She is on oxycodone 5 mg every 12 hours as needed, fluvoxamine maleate 25 mg daily, mirtazapine 15 mg at bedtime, quetiapine fumarate 12.5 mg q.i.d., alprazolam 0.5 mg every 4 hours as needed, potassium chloride 20 mEq once a day and she is also on polyethylene glycol 17 grams daily, sucralfate 1 gram twice a day and metoclopramide for Reglan 5 mg at bedtime. PHYSICAL EXAMINATION: GENERAL: On examining her, she was resting slightly propped up in bed, in no apparent respiratory distress, slightly pale, but no jaundice, cyanosis or thyromegaly. No jugular venous distention. No limb edema. VITAL SIGNS: Her heart rate was 85, blood pressure 110/59, temperature was 97.6, respiratory rate was 16, and oxygen saturation was 98%. HEAD, EYES, EARS, NOSE AND THROAT: Showed normocephalic, atraumatic. NECK: Supple. HEART: Showed normal first and second sounds. No gallop, rub or murmur. CHEST: Clear to auscultation. No crepitation or rhonchi. ABDOMEN: Distended, soft, nontender. No guarding or rigidity. No organomegaly. All hernial orifices are intact. Bowel sounds normal. NEUROLOGIC: She is awake, alert, responding appropriately. Her cranial nerves are intact. EXTREMITIES: She moves extremities without difficulty. She ambulates without assistance or assistive devices. LABORATORY DATA: Showed a white cell count of 3600, hemoglobin 14.4, hematocrit 44, MCV 103 and platelet count 273,000. Her chemistry showed a serum sodium 140, potassium 3.8, chloride 101, bicarbonate 33, anion gap of 6, BUN 14, creatinine 0.7, estimated GFR was 82 mL per minute. Her glucose was 73, calcium was 9.2, magnesium was 2.2. Her serum iron 70, TIBC was high at 382 and percent saturation was low at 18%. Her total bilirubin, AST, ALT, alkaline phosphatase were normal. Total protein 7.8, albumin 3.9. Her serum triglycerides was 103, total cholesterol was 207, LDL was 125, VLDL was 20, HDL was 62 and the ratio was 3. Her vitamin B12 was 762, 25-hydroxy vitamin D was 53.6 and TSH was 2.718. Her urinalysis showed the urine was yellow, clear with a pH of 7, specific gravity 1.010. The urine was negative for protein, glucose, ketones, blood, nitrite, leukocyte esterase, with 1-2 rbc's, 1-4 wbc's, no bacteria. IMPRESSION: In summary, this is a 72-year-old female patient with generalized anxiety and panic attack that has somehow worsened. The patient herself said that she does not know what triggers her symptoms and basically the patient has contacted Dr. Peterson's office and she arrived to the Emergency Room and was admitted for inpatient psychiatric stabilization. Her PAST medical history is significant for anxiety, depression, gastroesophageal reflux disease, cancer surgery. So far, all her vital signs and lab work that is available is well within normal range. Given that she has been complaining of severe abdominal pain, I will arrange for her to have a KUB and repeat her labs including lactic acid and serum lipase to make sure that there is no evidence of acute pancreatitis and/or ischemic bowel. Thank you, Dr. Peterson for allowing me to participate in the care of this patient. RAFAEL GORDILLO MD DR: Clement JOB#: [id number] / [id number]
[2018-03-21] MEDS: oxyCODONE IR 5 MG TABLET PO PRN ×2 (02:33→15:38)
[2018-03-21] MEDS: ALPRAZolam 0.5 MG TABLET PO PRN ×3 (03:15→15:37)
[2018-03-21 06:55] VITALS: BP 98/54
--- NOTE | 2018-03-21 08:06 | HP ---
ADMIT DATE: 03/20/2018 This late entry, date of service 03/20/2018, covers elements not covered in my initial note 03/20/2018. IDENTIFYING DATA: The patient is a 72-year-old female who presented back at our Emergency Room at [facility] referred by primary care physician, Dr. Hendricks, her primary care physician, after the patient presented at the office of Dr. Hendricks on 03/19/2018 with increasing depression, anxiety, somatic preoccupation, having panic attacks, feeling overwhelmed with fleeting suicidal ideation. The patient had previously paged me through the answering service, but by the time I called her back, I had got her voicemail. She states she felt unable to function at home, felt at risk from herself, went to her primary care physician's office the same day and then was sent to the Emergency Room at [facility], screened from a psychiatric standpoint with the recommendation for inpatient psychiatric stabilization. CHIEF COMPLAINT: "I can't go on like this. I don't know. I still have panic attacks." HISTORY OF PRESENT ILLNESS: The patient has a history of major depressive disorder, generalized anxiety disorder, and panic disorder. I have followed her at my office for many years and she has been hospitalized here on the unit in the past as well. Most recently, she has had placement at an assisted living for some time, but then returned home with her . She saw me at the office about 10 days back, was continuing to have significant panic anxiety attacks, somatic preoccupation, obsessive thought processes, and her psychotropics, antidepressants were changed to Luvox due to the marked somatic preoccupation. This was initiated at 25 mg at bedtime. She states some of her panic anxiety has been much worse since then with fleeting suicidal ideation, feeling overwhelmed, unmanageable as noted above. No clear history of bipolar disorder or homicidal ideation. PAST PSYCHIATRIC HISTORY: As above. MEDICAL HISTORY: Positive for GERD. Diet is regular. Takes her medications whole. Ambulates ad zane. UA on 03/19/2018 was negative. Drug allergies negative. She is a full code. CURRENT PSYCHOTROPICS: Luvox 25 mg daily, Seroquel 12.5 mg q. 6 hours p.r.n. psychosis, agitation. Remeron 15 mg at bedtime, Xanax 0.5 mg q. 4 hours p.r.n. anxiety. FAMILY HISTORY: Noncontributory. SOCIAL HISTORY: The patient lives at home with her who works in construction. No alcohol or drug abuse, physical, sexual or elder abuse history is noted. Not known to be a perpetrator. MENTAL STATUS EXAMINATION: The patient was seen individually evening of 03/20/2018. She readily recognizes me, well oriented, still extremely anxious, having panic attacks, but better. She is quite obsessive with somatic preoccupation. Speech coherent, rapid at times. Abstraction fair, computation impaired, language function intact, attention span short. Mood and affect remains anxious, labile. LABORATORY DATA: Reviewed. IMPRESSION: Major depressive disorder, recurrent; anxiety disorder, unspecified, panic disorder, obsessive compulsive disorder. Rest as above. PLAN: Admit to Geropsychiatry Unit at [facility]. I will see the patient daily individually from a psychiatric standpoint. Medical followup per Dr. Duncan/Dr Hunt. She is having marked GI cramps and somatic symptoms. KUB shows gas. CT with contrast requested by Dr. Duncan of the abdomen. We will increase Luvox to 50 mg at bedtime. Continue rest of the psychotropics. May need to increase Seroquel on a scheduled basis. REACTION TO HOSPITALIZATION: The patient accepting of it. ASSETS: Supportive . MAN Scooter BASHIR MD DR: CARRILLO/praful JOB#: [id number] / [id number]
[2018-03-21] MEDS ORDERED: IOHEXOL 240 MG/ML 50ML VIAL. PO ONE (08:30)
[2018-03-21] MEDS ORDERED: IOHEXOL 300 MG/ML 75 ML VIAL. IV ONE (08:30)
[2018-03-21] MEDS ORDERED: CONTRAST GIVEN MC PRN (08:45)
[2018-03-21] MEDS: POTASSIUM CHLORIDE 20 MEQ TABLET.ER. PO SCH (09:27)
[2018-03-21] MEDS: SUCRALFATE 1 GM TABLET. PO SCH (09:27)
[2018-03-21] MEDS: POLYETHYLENE GLYCOL 3350 17 GM PACKET. PO SCH (09:28)
[2018-03-21] MEDS: QUEtiapine 25 MG TABLET. PO SCH ×3 (09:30→17:17)
--- NOTE | 2018-03-21 09:49 | RAD ---
CT of the abdomen and pelvis with contrast 03/21/2018 INDICATION: Abdominal pain with cramping. COMPARISON STUDY: KUB, yesterday Discussion: Multidetector CT imaging of the abdomen and pelvis is obtained following the administration of oral contrast only. IV contrast was not given. There is a noncalcified nodule right lower lobe measuring 4 mm in diameter (axial image #6). There is a second 4 mm nodule in the left lower lobe (axial image 9). The adrenal glands are unremarkable. The spleen is unremarkable. Kidneys are grossly unremarkable. Pancreas is grossly unremarkable. Rounded hypodensity noted in the posterior dome of the liver attenuation characteristics are nonspecific. The lesion measures 9 mm in diameter. There is a second rounded hypodensity in a more inferior lateral right liver measuring 1.3 cm in diameter. Attenuation characteristics of this lesion is consistent with a simple cyst (axial image 22). There is a bilobed lesion in the left liver measuring 2.2 x 1.3 cm. Attenuation characteristics are nonspecific. There is a 4 mm lesion in the anterior medial right liver measuring 4 mm in diameter. Lesion is too small to characterize. There is no evidence of bowel obstruction. Visualized bowel demonstrates no evidence of acute inflammatory change. There is increased stool extending throughout the colon. Findings may reflect constipation. The appendix is unremarkable in appearance. Evaluation of the rectum, bladder, and uterus is limited secondary to beam hardening artifact from right hip arthroplasty. No evidence of acute osseous abnormality is seen. IMPRESSION: 1. Increased stool throughout the colon. Correlate with evidence of constipation. 2. Multiple nonspecific hepatic hypodensities as described above. The appearance is suggestive of but not diagnostic for hepatic cysts. Consider follow-up hepatic protocol MRI for further characterization. 3. 4 mm noncalcified nodule, right lower lobe. 4 mm noncalcified nodule left lower lobe. Recommend CT surveillance is described below. Pulmonary Nodule Followup: Fleischner Society recommendations In a low risk patient: 4mm or less - No follow up required. >4-6mm- 12 month follow up, if unchanged, no further follow up. >6-8mm- 6-12 month follow up, then at 18-24 months if no change. >8mm- 3, 9, 24 month follow up or consideration of PET/CT. In a high risk patient: <4mm - 12 month follow up, if unchanged then no further follow up. >4-6mm- 6-12 month follow up, then at 18-24 months if no change. >6-8mm- 3-6 month follow up, then at 9-12 months and [address] DOSING PQRS STATEMENT: One or more of the following individualized dose reduction techniques were utilized for this examination: 1. Automated exposure control 2. Adjustment of the mA and/or kV according to patient size 3. Use of iterative reconstruction technique. Electronically signed by: Jacinto Medeiros MD (03/21/2018 9:46 AM) [facility]
[2018-03-21] MEDS: MAG HYDROX/AL HYDROX/SIMETH 30 ML ORAL.SUSP PO PRN (15:06)
[2018-03-21 16:23] VITALS: BP 104/74
[2018-03-21] MEDS ORDERED: SENNOSIDES 8.6 MG TABLET PO PRN (18:45)
--- NOTE | 2018-03-21 19:50 | PDOC ---
Exam Note: Edwin Note: Late entry for date of service March 20, 2018. Please also refer to the separate dictated note~for this date of service dictated separately.~Patient seen individually. Discussed the patient with Nursing staff reviewed the chart.~ Reviewed interim history and current functioning. Reviewed vital signs,~Labs/ Radiology~and current medications noted below. Continue current treatment with the changes noted in the dictated addendum note Assessment: Vital Signs: VS - Last 72 Hours, by Label Date Time Temp Pulse Resp B/P (MAP) Pulse Ox O2 Delivery O2 Flow Rate FiO2 03/21/18 17:15 16 97 Room Air 03/21/18 16:23 97.1 97 16 104/74 (84) 97 03/21/18 15:38 18 95 Room Air 03/21/18 06:55 84 14 98/54 (69) 95 03/21/18 02:33 18 100 Room Air 03/20/18 16:38 97.8 108 18 118/56 (76) 100 Room Air 03/20/18 13:38 18 98 Room Air 03/20/18 06:58 97.6 85 16 110/59 (76) 98 03/19/18 23:10 80 16 109/63 (78) 100 Room Air 03/19/18 17:47 97.8 82 20 100 Room Air Vital Signs Date Time Temp Pulse Resp B/P (MAP) Pulse Ox O2 Delivery O2 Flow Rate FiO2 03/21/18 17:15 16 97 Room Air 03/21/18 16:23 97.1 97 104/74 (84) I&O Intake and Output 03/21/18 07:00 Intake Total 1080 ml Balance 1080 ml Intake Oral 1080 ml Current Medications: Meds: Current Medications Mirtazapine (Remeron) 15 mg 1X ONCE PO Last administered on 03/19/18at 21:58; Start 03/19/18 at 21:30; Stop 03/19/18 at 21:36; Status DC Quetiapine Fumarate (SEROquel) 12.5 mg 1X STAT PO Last administered on at 21:58; Start 03/19/18 at 21:30; Stop 03/19/18 at 21:36; Status DC Acetaminophen (Tylenol) 650 mg PRN Q6HRS PRN PO PAIN / TEMP Last administered on 03/20/18at 21:18; Start 03/20/18 at 00:00 Multi-Ingredient Ointment (Analgesic [place]) 1 declan PRN QID PRN TP MUSCLE PAIN; Start 03/20/18 at 00:00 Al Hydroxide/Mg Hydroxide (Mylanta Plus Xs) 15 ml PRN AFTMEALHC PRN PO DYSPEPSIA Last administered on 03/21/18at 15:06; Start 03/20/18 at 00:00 Magnesium Hydroxide (Milk Of Magnesia) 2,400 mg PRN QHS PRN PO CONSTIPATION; Start 03/20/18 at 00:00 Alprazolam (Xanax) 0.5 mg PRN Q4HRS PRN PO ANXIETY / AGITATION Last administered on 03/21/18at 15:37; Start 03/20/18 at 00:45 Fluvoxamine Maleate (Luvox) 25 mg DAILY PO Last administered on 03/20/18at 07:58 ; Start 03/20/18 at 09:00; Stop 03/20/18 at 18:44; Status DC Mirtazapine (Remeron) 15 mg QHS PO Last administered on 03/20/18at 19:43; Start 03/20/18 at 21:00 Quetiapine Fumarate (SEROquel) 12.5 mg QID PO Last administered on 03/21/18at 17 :17; Start 03/20/18 at 09:00; Stop 03/21/18 at 18:46; Status DC Potassium Chloride (Klor-Con) 20 meq DAILY PO Last administered on 03/21/18at 09 :27; Start 03/20/18 at 09:00 Metoclopramide HCl (Reglan) 5 mg HS PO Last administered on 03/20/18at 19:43; Start 03/20/18 at 21:00 Oxycodone HCl (Roxicodone) 5 mg PRN Q12HR PRN PO PAIN Last administered on 03/21at 15:38; Start 03/20/18 at 00:45 Polyethylene Glycol (miraLAX) 17 gm DAILY PO Last administered on 03/21/18 09: 28; Start 03/20/18 at 09:00 Sucralfate (Carafate) 2 gm DAILYAC PO Last administered on 03/21/18at 09:27; Start 03/20/18 at 07:30 Fluvoxamine Maleate (Luvox) 50 mg DAILY PO Last administered on 03/21/18at 09:27 ; Start 03/21/18 at 09:00 Iohexol (Omnipaque 240 Mg/ml) 50 ml 1X ONCE PO Last administered on 03/21/18at 09:17; Start 03/21/18 at 08:30; Stop 03/21/18 at 08:37; Status DC Iohexol (Omnipaque 300 Mg/ml) 75 ml 1X ONCE IV ; Start 03/21/18 at 08:30; Stop 03/21/18 at 08:37; Status DC Info (Do NOT chart on this entry -- for MONITORING) 1 each PRN DAILY PRN MC SEE COMMENTS; Start 03/21/18 at 08:45; Stop 03/23/18 at 08:44 Docusate Sodium (Colace) 100 mg BID PO ; Start 03/21/18 at 21:00 Sennosides (Senna) 17.2 mg PRN BID PRN PO CONSTIPATION; Start 03/21/18 at 18:45 Quetiapine Fumarate (SEROquel) 25 mg 0900,1700 PO ; Start 03/22/18 at 09:00 Quetiapine Fumarate (SEROquel) 12.5 mg 1200 PO ; Start 03/22/18 at 12:00 Active Scripts Active Reported Oxycodone Hcl 5 Mg Capsule 5 Mg PO PRN Q12HR PRN Fluvoxamine Maleate 50 Mg Tablet 25 Mg PO DAILY Seroquel (Quetiapine Fumarate) 25 Mg Tablet 12.5 Mg PO QID Miralax (Polyethylene Glycol 3350) 17 Gm Powd.pack 17 Gm PO DAILY Klor-Con M20 (Potassium Chloride) 20 Meq Tab.er.prt 20 Meq PO DAILY Sucralfate 1 Gm Tablet 2 Gm PO DAILY Mirtazapine 15 Mg Tablet 15 Mg PO QHS Reglan (Metoclopramide Hcl) 10 Mg Tablet 5 Mg PO HS Alprazolam 0.5 Mg Tablet 0.5 Mg PO PRN Q4HRS PRN I have reviewed the current psychotropics carefully including drug interactions. Risk benefit ratio favors no change other than as noted in my dictated progress note. Diagnosis: Problems: (1) Anxiety disorder (2) Impulse control disorder (3) Major depressive disorder, recurrent episode (4) Panic disorder with agoraphobia and severe panic attacks (5) Depression (6) Obsessive compulsive disorder MELISSA BASHIR MD March 21, 2018 19:50
[2018-03-21] MEDS: DOCUSATE SODIUM 100 MG CAPSULE PO SCH (19:58)
[2018-03-21] MEDS: MIRTAZAPINE 15 MG TABLET PO SCH (19:58)
[2018-03-21] MEDS: METOCLOPRAMIDE 5 MG TABLET PO SCH (19:58)
--- NOTE | 2018-03-21 20:27 | PDOC ---
Exam Note: Edwin Note: Please also refer to the separate dictated note~for this date of service dictated separately.~Patient seen individually. Discussed the patient with Nursing staff reviewed the chart.~Reviewed interim history and current functioning. Reviewed vital signs,~Labs/ Radiology~and current medications noted below. Continue current treatment with the changes noted in the dictated addendum note Assessment: Vital Signs: Vital Signs Date Time Temp Pulse Resp B/P (MAP) Pulse Ox O2 Delivery O2 Flow Rate FiO2 03/21/18 17:15 16 97 Room Air 03/21/18 16:23 97.1 97 104/74 (84) I&O Intake and Output 03/21/18 07:00 Intake Total 1080 ml Balance 1080 ml Intake Oral 1080 ml Current Medications: Meds: Current Medications Mirtazapine (Remeron) 15 mg 1X ONCE PO Last administered on 03/19/18at 21:58; Start 03/19/18 at 21:30; Stop 03/19/18 at 21:36; Status DC Quetiapine Fumarate (SEROquel) 12.5 mg 1X STAT PO Last administered on at 21:58; Start 03/19/18 at 21:30; Stop 03/19/18 at 21:36; Status DC Acetaminophen (Tylenol) 650 mg PRN Q6HRS PRN PO PAIN / TEMP Last administered on 03/20/18at 21:18; Start 03/20/18 at 00:00 Multi-Ingredient Ointment (Analgesic Benson) 1 declan PRN QID PRN TP MUSCLE PAIN; Start 03/20/18 at 00:00 Al Hydroxide/Mg Hydroxide (Mylanta Plus Xs) 15 ml PRN AFTMEALHC PRN PO DYSPEPSIA Last administered on 03/21/18at 15:06; Start 03/20/18 at 00:00 Magnesium Hydroxide (Milk Of Magnesia) 2,400 mg PRN QHS PRN PO CONSTIPATION; Start 03/20/18 at 00:00 Alprazolam (Xanax) 0.5 mg PRN Q4HRS PRN PO ANXIETY / AGITATION Last administered on 03/21/18at 15:37; Start 03/20/18 at 00:45 Fluvoxamine Maleate (Luvox) 25 mg DAILY PO Last administered on 03/20/18at 07:58 ; Start 03/20/18 at 09:00; Stop 03/20/18 at 18:44; Status DC Mirtazapine (Remeron) 15 mg QHS PO Last administered on 03/21/18 19:58; Start 03/20/18 at 21:00 Quetiapine Fumarate (SEROquel) 12.5 mg QID PO Last administered on 03/21/18 17 :17; Start 03/20/18 at 09:00; Stop 03/21/18 at 18:46; Status DC Potassium Chloride (Klor-Con) 20 meq DAILY PO Last administered on 03/21/18 09 :27; Start 03/20/18 at 09:00 Metoclopramide HCl (Reglan) 5 mg HS PO Last administered on 03/21/18 19:58; Start 03/20/18 at 21:00 Oxycodone HCl (Roxicodone) 5 mg PRN Q12HR PRN PO PAIN Last administered on 03/21 15:38; Start 03/20/18 at 00:45 Polyethylene Glycol (miraLAX) 17 gm DAILY PO Last administered on 03/21/18 09: 28; Start 03/20/18 at 09:00 Sucralfate (Carafate) 2 gm DAILYAC PO Last administered on 03/21/18 09:27; Start 03/20/18 at 07:30 Fluvoxamine Maleate (Luvox) 50 mg DAILY PO Last administered on 03/21/18 09:27 ; Start 03/21/18 at 09:00 Iohexol (Omnipaque 240 Mg/ml) 50 ml 1X ONCE PO Last administered on 03/21/18 09:17; Start 03/21/18 at 08:30; Stop 03/21/18 at 08:37; Status DC Iohexol (Omnipaque 300 Mg/ml) 75 ml 1X ONCE IV ; Start 03/21/18 at 08:30; Stop 03/21/18 at 08:37; Status DC Info (Do NOT chart on this entry -- for MONITORING) 1 each PRN DAILY PRN MC SEE COMMENTS; Start 03/21/18 at 08:45; Stop 03/23/18 at 08:44 Docusate Sodium (Colace) 100 mg BID PO Last administered on 5/23/18at 19:58; Start 03/21/18 at 21:00 Sennosides (Senna) 17.2 mg PRN BID PRN PO CONSTIPATION; Start 03/21/18 at 18:45 Quetiapine Fumarate (SEROquel) 25 mg 0900,1700 PO ; Start 03/22/18 at 09:00 Quetiapine Fumarate (SEROquel) 12.5 mg 1200 PO ; Start 03/22/18 at 12:00 Active Scripts Active Reported Oxycodone Hcl 5 Mg Capsule 5 Mg PO PRN Q12HR PRN Fluvoxamine Maleate 50 Mg Tablet 25 Mg PO DAILY Seroquel (Quetiapine Fumarate) 25 Mg Tablet 12.5 Mg PO QID Miralax (Polyethylene Glycol 3350) 17 Gm Powd.pack 17 Gm PO DAILY Klor-Con M20 (Potassium Chloride) 20 Meq Tab.er.prt 20 Meq PO DAILY Sucralfate 1 Gm Tablet 2 Gm PO DAILY Mirtazapine 15 Mg Tablet 15 Mg PO QHS Reglan (Metoclopramide Hcl) 10 Mg Tablet 5 Mg PO HS Alprazolam 0.5 Mg Tablet 0.5 Mg PO PRN Q4HRS PRN I have reviewed the current psychotropics carefully including drug interactions. Risk benefit ratio favors no change other than as noted in my dictated progress note. Diagnosis: Problems: (1) Anxiety disorder (2) Impulse control disorder (3) Major depressive disorder, recurrent episode (4) Panic disorder with agoraphobia and severe panic attacks (5) Depression (6) Obsessive compulsive disorder MELISSA BASHIR MD March 21, 2018 20:27
[2018-03-22] MEDS: ALPRAZolam 0.5 MG TABLET PO PRN ×3 (03:22→20:32)
[2018-03-22] MEDS: ACETAMINOPHEN 325 MG TABLET PO PRN (03:22)
[2018-03-22] MEDS: oxyCODONE IR 5 MG TABLET PO PRN (05:31)
[2018-03-22] MEDS: MAG HYDROX/AL HYDROX/SIMETH 30 ML ORAL.SUSP PO PRN (05:45)
[2018-03-22 05:52] VITALS: BP 122/83
[2018-03-22] MEDS: SUCRALFATE 1 GM TABLET. PO SCH (08:09)
[2018-03-22] MEDS: DOCUSATE SODIUM 100 MG CAPSULE PO SCH ×2 (08:09→20:32)
[2018-03-22] MEDS: POLYETHYLENE GLYCOL 3350 17 GM PACKET. PO SCH (08:10)
[2018-03-22] MEDS: POTASSIUM CHLORIDE 20 MEQ TABLET.ER. PO SCH (08:10)
[2018-03-22] MEDS: QUEtiapine 25 MG TABLET. PO SCH ×3 (08:12→16:56)
[2018-03-22] MEDS ORDERED: QUEtiapine 25 MG TABLET. PO SCH (12:00)
[2018-03-22 16:17] VITALS: BP 118/61
[2018-03-22] MEDS: MIRTAZAPINE 15 MG TABLET PO SCH (20:32)
[2018-03-22] MEDS: METOCLOPRAMIDE 5 MG TABLET PO SCH (20:32)
--- NOTE | 2018-03-22 20:59 | PDOC ---
Exam Note: Edwin Note: Please also refer to the separate dictated note~for this date of service dictated separately.~Patient seen individually. Discussed the patient with Nursing staff reviewed the chart.~Reviewed interim history and current functioning. Reviewed vital signs,~Labs/ Radiology~and current medications noted below. Continue current treatment with the changes noted in the dictated addendum note Assessment: Vital Signs: Vital Signs Date Time Temp Pulse Resp B/P (MAP) Pulse Ox O2 Delivery O2 Flow Rate FiO2 03/22/18 16:17 98.0 103 18 118/61 (80) 99 03/22/18 08:45 Room Air I&O Intake and Output 03/22/18 07:00 Intake Total 840 ml Balance 840 ml Intake Oral 840 ml # Bowel Movements 2 Current Medications: Meds: Current Medications Mirtazapine (Remeron) 15 mg 1X ONCE PO Last administered on 03/19/18 21:58; Start 03/19/18 at 21:30; Stop 03/19/18 at 21:36; Status DC Quetiapine Fumarate (SEROquel) 12.5 mg 1X STAT PO Last administered on at 21:58; Start 03/19/18 at 21:30; Stop 03/19/18 at 21:36; Status DC Acetaminophen (Tylenol) 650 mg PRN Q6HRS PRN PO PAIN / TEMP Last administered on 03/22/18at 03:22; Start 03/20/18 at 00:00 Multi-Ingredient Ointment (Analgesic [place]) 1 declan PRN QID PRN TP MUSCLE PAIN; Start 03/20/18 at 00:00 Al Hydroxide/Mg Hydroxide (Mylanta Plus Xs) 15 ml PRN AFTMEALHC PRN PO DYSPEPSIA Last administered on 03/22/18at 05:45; Start 03/20/18 at 00:00 Magnesium Hydroxide (Milk Of Magnesia) 2,400 mg PRN QHS PRN PO CONSTIPATION; Start 03/20/18 at 00:00 Alprazolam (Xanax) 0.5 mg PRN Q4HRS PRN PO ANXIETY / AGITATION Last administered on 03/22/18at 20:32; Start 03/20/18 at 00:45 Fluvoxamine Maleate (Luvox) 25 mg DAILY PO Last administered on 03/20/18at 07:58 ; Start 03/20/18 at 09:00; Stop 03/20/18 at 18:44; Status DC Mirtazapine (Remeron) 15 mg QHS PO Last administered on 03/22/18 20:32; Start 03/20/18 at 21:00 Quetiapine Fumarate (SEROquel) 12.5 mg QID PO Last administered on 03/21/18 17 :17; Start 03/20/18 at 09:00; Stop 03/21/18 at 18:46; Status DC Potassium Chloride (Klor-Con) 20 meq DAILY PO Last administered on 03/22/18 08 :10; Start 03/20/18 at 09:00 Metoclopramide HCl (Reglan) 5 mg HS PO Last administered on 03/22/18 20:32; Start 03/20/18 at 21:00 Oxycodone HCl (Roxicodone) 5 mg PRN Q12HR PRN PO PAIN Last administered on 03/22 05:31; Start 03/20/18 at 00:45 Polyethylene Glycol (miraLAX) 17 gm DAILY PO Last administered on 03/22/18 08: 10; Start 03/20/18 at 09:00 Sucralfate (Carafate) 2 gm DAILYAC PO Last administered on 03/22/18 08:09; Start 03/20/18 at 07:30 Fluvoxamine Maleate (Luvox) 50 mg DAILY PO Last administered on 03/22/18 08:10 ; Start 03/21/18 at 09:00 Iohexol (Omnipaque 240 Mg/ml) 50 ml 1X ONCE PO Last administered on 03/21/18at 09:17; Start 03/21/18 at 08:30; Stop 03/21/18 at 08:37; Status DC Iohexol (Omnipaque 300 Mg/ml) 75 ml 1X ONCE IV ; Start 03/21/18 at 08:30; Stop 03/21/18 at 08:37; Status DC Info (Do NOT chart on this entry -- for MONITORING) 1 each PRN DAILY PRN MC SEE COMMENTS; Start 03/21/18 at 08:45; Stop 03/23/18 at 08:44 Docusate Sodium (Colace) 100 mg BID PO Last administered on 03/22/18at 20:32; Start 03/21/18 at 21:00 Sennosides (Senna) 17.2 mg PRN BID PRN PO CONSTIPATION; Start 03/21/18 at 18:45 Quetiapine Fumarate (SEROquel) 25 mg 0900,1700 PO Last administered on at 16:56; Start 03/22/18 at 09:00 Quetiapine Fumarate (SEROquel) 12.5 mg 1200 PO ; Start 03/22/18 at 12:00; Stop 03/22/18 at 12:00; Status DC Quetiapine Fumarate (SEROquel) 25 mg 1200 PO Last administered on 03/22/18at 12: 15; Start 03/22/18 at 12:00 Active Scripts Active Reported Oxycodone Hcl 5 Mg Capsule 5 Mg PO PRN Q12HR PRN Fluvoxamine Maleate 50 Mg Tablet 25 Mg PO DAILY Seroquel (Quetiapine Fumarate) 25 Mg Tablet 12.5 Mg PO QID Miralax (Polyethylene Glycol 3350) 17 Gm Powd.pack 17 Gm PO DAILY Klor-Con M20 (Potassium Chloride) 20 Meq Tab.er.prt 20 Meq PO DAILY Sucralfate 1 Gm Tablet 2 Gm PO DAILY Mirtazapine 15 Mg Tablet 15 Mg PO QHS Reglan (Metoclopramide Hcl) 10 Mg Tablet 5 Mg PO HS Alprazolam 0.5 Mg Tablet 0.5 Mg PO PRN Q4HRS PRN I have reviewed the current psychotropics carefully including drug interactions. Risk benefit ratio favors no change other than as noted in my dictated progress note. Diagnosis: Problems: (1) Anxiety disorder (2) Impulse control disorder (3) Major depressive disorder, recurrent episode (4) Panic disorder with agoraphobia and severe panic attacks (5) Depression (6) Obsessive compulsive disorder MELISSA BASHIR MD March 22, 2018 20:59
[2018-03-23] MEDS: oxyCODONE IR 5 MG TABLET PO PRN (02:31)
[2018-03-23] MEDS: MAG HYDROX/AL HYDROX/SIMETH 30 ML ORAL.SUSP PO PRN (02:31)
[2018-03-23] MEDS: DOCUSATE SODIUM 100 MG CAPSULE PO SCH ×2 (07:54→19:49)
[2018-03-23] MEDS: POTASSIUM CHLORIDE 20 MEQ TABLET.ER. PO SCH (07:54)
[2018-03-23] MEDS: POLYETHYLENE GLYCOL 3350 17 GM PACKET. PO SCH (07:54)
[2018-03-23] MEDS: SUCRALFATE 1 GM TABLET. PO SCH (07:54)
[2018-03-23] MEDS: QUEtiapine 25 MG TABLET. PO SCH ×3 (07:54→17:07)
[2018-03-23] MEDS: ALPRAZolam 0.5 MG TABLET PO PRN ×2 (08:21→13:09)
[2018-03-23] MEDS: ACETAMINOPHEN 325 MG TABLET PO PRN (08:21)
[2018-03-23 12:53] VITALS: BP 131/59
[2018-03-23] MEDS ORDERED: METHYLNALTREXONE 12 MG/0.6 ML VIAL. SQ ONE (13:30)
[2018-03-23 16:36] VITALS: BP 132/59
[2018-03-23] MEDS: MIRTAZAPINE 15 MG TABLET PO SCH (19:49)
[2018-03-23] MEDS: METOCLOPRAMIDE 5 MG TABLET PO SCH (19:49)
--- NOTE | 2018-03-23 20:06 | PDOC ---
Exam Note: Edwin Note: Please also refer to the separate dictated note~for this date of service dictated separately.~Patient seen individually. Discussed the patient with Nursing staff reviewed the chart.~Reviewed interim history and current functioning. Reviewed vital signs,~Labs/ Radiology~and current medications noted below. Continue current treatment with the changes noted in the dictated addendum note Assessment: Vital Signs: Vital Signs Date Time Temp Pulse Resp B/P (MAP) Pulse Ox O2 Delivery O2 Flow Rate FiO2 03/23/18 16:36 98.4 63 16 132/59 (83) 97 Room Air I&O Intake and Output 03/23/18 07:00 Intake Total 1080 ml Balance 1080 ml Intake Oral 1080 ml Current Medications: Meds: Current Medications Mirtazapine (Remeron) 15 mg 1X ONCE PO Last administered on 03/19/18 21:58; Start 03/19/18 at 21:30; Stop 03/19/18 at 21:36; Status DC Quetiapine Fumarate (SEROquel) 12.5 mg 1X STAT PO Last administered on at 21:58; Start 03/19/18 at 21:30; Stop 03/19/18 at 21:36; Status DC Acetaminophen (Tylenol) 650 mg PRN Q6HRS PRN PO PAIN / TEMP Last administered on 03/23/18 08:21; Start 03/20/18 at 00:00 Multi-Ingredient Ointment (Analgesic [place]) 1 declan PRN QID PRN TP MUSCLE PAIN; Start 03/20/18 at 00:00 Al Hydroxide/Mg Hydroxide (Mylanta Plus Xs) 15 ml PRN AFTMEALHC PRN PO DYSPEPSIA Last administered on 03/23/18at 02:31; Start 03/20/18 at 00:00 Magnesium Hydroxide (Milk Of Magnesia) 2,400 mg PRN QHS PRN PO CONSTIPATION; Start 03/20/18 at 00:00 Alprazolam (Xanax) 0.5 mg PRN Q4HRS PRN PO ANXIETY / AGITATION Last administered on 03/23/18at 13:09; Start 03/20/18 at 00:45 Fluvoxamine Maleate (Luvox) 25 mg DAILY PO Last administered on 03/20/18at 07:58 ; Start 03/20/18 at 09:00; Stop 03/20/18 at 18:44; Status DC Mirtazapine (Remeron) 15 mg QHS PO Last administered on 03/23/18at 19:49; Start 03/20/18 at 21:00 Quetiapine Fumarate (SEROquel) 12.5 mg QID PO Last administered on 03/21/18 17 :17; Start 03/20/18 at 09:00; Stop 03/21/18 at 18:46; Status DC Potassium Chloride (Klor-Con) 20 meq DAILY PO Last administered on 03/23/18 07 :54; Start 03/20/18 at 09:00 Metoclopramide HCl (Reglan) 5 mg HS PO Last administered on 03/23/18 19:49; Start 03/20/18 at 21:00 Oxycodone HCl (Roxicodone) 5 mg PRN Q12HR PRN PO PAIN Last administered on 03/23 02:31; Start 03/20/18 at 00:45 Polyethylene Glycol (miraLAX) 17 gm DAILY PO Last administered on 03/23/18at 07: 54; Start 03/20/18 at 09:00 Sucralfate (Carafate) 2 gm DAILYAC PO Last administered on 03/23/18 07:54; Start 03/20/18 at 07:30; Stop 03/23/18 at 18:28; Status DC Fluvoxamine Maleate (Luvox) 50 mg DAILY PO Last administered on 03/23/18at 07:54 ; Start 03/21/18 at 09:00 Iohexol (Omnipaque 240 Mg/ml) 50 ml 1X ONCE PO Last administered on 03/21/18at 09:17; Start 03/21/18 at 08:30; Stop 03/21/18 at 08:37; Status DC Iohexol (Omnipaque 300 Mg/ml) 75 ml 1X ONCE IV ; Start 03/21/18 at 08:30; Stop 03/21/18 at 08:37; Status DC Info (Do NOT chart on this entry -- for MONITORING) 1 each PRN DAILY PRN MC SEE COMMENTS; Start 03/21/18 at 08:45; Stop 03/23/18 at 08:44; Status DC Docusate Sodium (Colace) 100 mg BID PO Last administered on 03/23/18at 19:49; Start 03/21/18 at 21:00 Sennosides (Senna) 17.2 mg PRN BID PRN PO CONSTIPATION; Start 03/21/18 at 18:45 Quetiapine Fumarate (SEROquel) 25 mg 0900,1700 PO Last administered on at 17:07; Start 03/22/18 at 09:00; Stop 03/23/18 at 19:01; Status DC Quetiapine Fumarate (SEROquel) 12.5 mg 1200 PO ; Start 03/22/18 at 12:00; Stop 03/22/18 at 12:00; Status DC Quetiapine Fumarate (SEROquel) 25 mg 1200 PO Last administered on 03/23/18at 13: 09; Start 03/22/18 at 12:00; Stop 03/23/18 at 19:01; Status DC Methylnaltrexone [place] (Relistor) 6 mg 1X ONCE SQ Last administered on at 14:52; Start 03/23/18 at 13:30; Stop 03/23/18 at 13:31; Status DC Sucralfate (Carafate) 1 gm BID@0700,1600 PO ; Start 03/24/18 at 07:00 Quetiapine Fumarate (SEROquel) 37.5 mg 0900,1700 PO ; Start 03/24/18 at 09:00 Quetiapine Fumarate (SEROquel) 37.5 mg 1200 PO ; Start 03/24/18 at 12:00 Active Scripts Active Reported Oxycodone Hcl 5 Mg Capsule 5 Mg PO PRN Q12HR PRN Fluvoxamine Maleate 50 Mg Tablet 25 Mg PO DAILY Seroquel (Quetiapine Fumarate) 25 Mg Tablet 12.5 Mg PO QID Miralax (Polyethylene Glycol 3350) 17 Gm Powd.pack 17 Gm PO DAILY Klor-Con M20 (Potassium Chloride) 20 Meq Tab.er.prt 20 Meq PO DAILY Sucralfate 1 Gm Tablet 2 Gm PO DAILY Mirtazapine 15 Mg Tablet 15 Mg PO QHS Reglan (Metoclopramide Hcl) 10 Mg Tablet 5 Mg PO HS Alprazolam 0.5 Mg Tablet 0.5 Mg PO PRN Q4HRS PRN I have reviewed the current psychotropics carefully including drug interactions. Risk benefit ratio favors no change other than as noted in my dictated progress note. Diagnosis: Problems: (1) Anxiety disorder (2) Impulse control disorder (3) Major depressive disorder, recurrent episode (4) Panic disorder with agoraphobia and severe panic attacks (5) Depression (6) Obsessive compulsive disorder MELISSA BASHIR MD March 23, 2018 20:06
--- NOTE | 2018-03-23 21:09 | PN ---
DATE: 03/22/2018 This is a late entry for 03/22/2018 covers elements not covered in my initial note of 03/22/2018. SUBJECTIVE: I met with the patient in the evening and staffed at a treatment team meeting with the entire team in the morning. I have had multiple phone calls from the nursing staff and social service staff all day as well as the patient was demanding to leave against medical advice and we approved this. The reason for that was she was uncomfortable with her roommate keeping her up all night. Nursing staff are able to change her room and she was finally agreeable to continuing with her hospital stay. I discussed similar issues with her the previous night as well at great length. She is fixated on wanting a diet changed and we will do that as well per dietary. She has vague somatic symptoms. REVIEW OF SYSTEMS: No CV, system symptoms on review. MENTAL STATUS EXAM: Reasonably oriented. Speech is coherent, rapid at times. Abstraction fair, computation impaired, language function intact, attention span short. Mood and affect labile. No active suicidal ideation. She woke up at 04:45 a.m. because of roommate. Complains of constipation with GI symptoms, slept for 3/4 hours. Diet has been changed. IMPRESSION: Unchanged from initial note. PLAN: Increase Seroquel to 25 mg 3 times a day. Continue Luvox 50 mg a day. Rest unchanged. May need to increase Luvox gradually. MAN Scooter BASHIR MD DR: CARRILLO/praful JOB#: [id number] / [id number]
--- NOTE | 2018-03-23 21:16 | PN ---
DATE: 03/21/2018 PSYCHIATRIC PROGRESS NOTE This late entry date of service 03/21/2018 covers elements not covered in my initial note of 03/21/2018. SUBJECTIVE: Met with the patient in the evening. The patient slept 4-3/4 hours previous evening. She has many somatic complaints. Dr. Duncan is following medically. CT abdomen and pelvis has been ordered. Lungs show small, less than 4 mm masses, defer to Dr. Duncan. She remains quite anxious, labile at times many complains about her roommate, vague somatic symptoms. REVIEW OF SYSTEMS: No CV, eye, ENT system symptoms on review. MENTAL STATUS EXAM: Reasonably oriented. Speech is coherent, rapid at times. Abstraction fair, computation is impaired, quite obsessive, anxious. No suicidal or homicidal ideation. Attention span is short. Language function is intact. LABORATORY DATA: Reviewed. IMPRESSION: Unchanged from initial note. PLAN: Seroquel is 12.5 mg q. 6 hours, we will change to 25 mg morning and evening and 12.5 mg at noon. Continue rest unchanged. MAN Scooter BASHIR MD DR: CARRILLO/praful JOB#: [id number] / [id number]
[2018-03-24] MEDS: ALPRAZolam 0.5 MG TABLET PO PRN ×3 (05:28→15:47)
[2018-03-24] MEDS: SUCRALFATE 1 GM TABLET. PO SCH ×2 (05:32→17:43)
[2018-03-24 06:37] VITALS: BP 103/62
[2018-03-24] MEDS: POLYETHYLENE GLYCOL 3350 17 GM PACKET. PO SCH (08:23)
[2018-03-24] MEDS: POTASSIUM CHLORIDE 20 MEQ TABLET.ER. PO SCH (08:23)
[2018-03-24] MEDS: DOCUSATE SODIUM 100 MG CAPSULE PO SCH ×2 (08:23→19:52)
[2018-03-24] MEDS: QUEtiapine 25 MG TABLET. PO SCH ×3 (08:25→17:43)
[2018-03-24] MEDS: MAG HYDROX/AL HYDROX/SIMETH 30 ML ORAL.SUSP PO PRN (15:47)
[2018-03-24 15:58] VITALS: BP 127/69
[2018-03-24] MEDS: oxyCODONE IR 5 MG TABLET PO PRN (17:43)
[2018-03-24] MEDS: MIRTAZAPINE 15 MG TABLET PO SCH (19:52)
[2018-03-24] MEDS: METOCLOPRAMIDE 5 MG TABLET PO SCH (19:52)
--- NOTE | 2018-03-24 23:33 | PDOC ---
Exam Note: Edwin Note: Please also refer to the separate dictated note~for this date of service dictated separately.~Patient seen individually. Discussed the patient with Nursing staff reviewed the chart.~Reviewed interim history and current functioning. Reviewed vital signs,~Labs/ Radiology~and current medications noted below. Continue current treatment with the changes noted in the dictated addendum note Assessment: Vital Signs: Vital Signs Date Time Temp Pulse Resp B/P (MAP) Pulse Ox O2 Delivery O2 Flow Rate FiO2 03/24/18 19:33 97 03/24/18 17:43 20 Room Air 03/24/18 15:58 98.1 106 127/69 (88) I&O Intake and Output 03/24/18 07:00 Intake Total 360 ml Balance 360 ml Intake Oral 360 ml Current Medications: Meds: Current Medications Mirtazapine (Remeron) 15 mg 1X ONCE PO Last administered on 03/19/18 21:58; Start 03/19/18 at 21:30; Stop 03/19/18 at 21:36; Status DC Quetiapine Fumarate (SEROquel) 12.5 mg 1X STAT PO Last administered on at 21:58; Start 03/19/18 at 21:30; Stop 03/19/18 at 21:36; Status DC Acetaminophen (Tylenol) 650 mg PRN Q6HRS PRN PO PAIN / TEMP Last administered on 03/23/18at 08:21; Start 03/20/18 at 00:00 Multi-Ingredient Ointment (Analgesic [place]) 1 declan PRN QID PRN TP MUSCLE PAIN; Start 03/20/18 at 00:00 Al Hydroxide/Mg Hydroxide (Mylanta Plus Xs) 15 ml PRN AFTMEALHC PRN PO DYSPEPSIA Last administered on 03/24/18at 15:47; Start 03/20/18 at 00:00 Magnesium Hydroxide (Milk Of Magnesia) 2,400 mg PRN QHS PRN PO CONSTIPATION; Start 03/20/18 at 00:00 Alprazolam (Xanax) 0.5 mg PRN Q4HRS PRN PO ANXIETY / AGITATION Last administered on 03/24/18at 15:47; Start 03/20/18 at 00:45 Fluvoxamine Maleate (Luvox) 25 mg DAILY PO Last administered on 03/20/18 07:58 ; Start 03/20/18 at 09:00; Stop 03/20/18 at 18:44; Status DC Mirtazapine (Remeron) 15 mg QHS PO Last administered on 03/24/18 19:52; Start 03/20/18 at 21:00 Quetiapine Fumarate (SEROquel) 12.5 mg QID PO Last administered on 03/21/18 17 :17; Start 03/20/18 at 09:00; Stop 03/21/18 at 18:46; Status DC Potassium Chloride (Klor-Con) 20 meq DAILY PO Last administered on 03/24/18 08 :23; Start 03/20/18 at 09:00 Metoclopramide HCl (Reglan) 5 mg HS PO Last administered on 03/24/18 19:52; Start 03/20/18 at 21:00 Oxycodone HCl (Roxicodone) 5 mg PRN Q12HR PRN PO PAIN Last administered on 03/24at 17:43; Start 03/20/18 at 00:45 Polyethylene Glycol (miraLAX) 17 gm DAILY PO Last administered on 03/24/18 08: 23; Start 03/20/18 at 09:00 Sucralfate (Carafate) 2 gm DAILYAC PO Last administered on 03/23/18 07:54; Start 03/20/18 at 07:30; Stop 03/23/18 at 18:28; Status DC Fluvoxamine Maleate (Luvox) 50 mg DAILY PO Last administered on 03/24/18 08:23 ; Start 03/21/18 at 09:00; Stop 03/24/18 at 18:27; Status DC Iohexol (Omnipaque 240 Mg/ml) 50 ml 1X ONCE PO Last administered on 03/21/18 09:17; Start 03/21/18 at 08:30; Stop 03/21/18 at 08:37; Status DC Iohexol (Omnipaque 300 Mg/ml) 75 ml 1X ONCE IV ; Start 03/21/18 at 08:30; Stop 03/21/18 at 08:37; Status DC Info (Do NOT chart on this entry -- for MONITORING) 1 each PRN DAILY PRN MC SEE COMMENTS; Start 03/21/18 at 08:45; Stop 03/23/18 at 08:44; Status DC Docusate Sodium (Colace) 100 mg BID PO Last administered on 03/24/18at 19:52; Start 03/21/18 at 21:00 Sennosides (Senna) 17.2 mg PRN BID PRN PO CONSTIPATION; Start 03/21/18 at 18:45 Quetiapine Fumarate (SEROquel) 25 mg 0900,1700 PO Last administered on at 17:07; Start 03/22/18 at 09:00; Stop 03/23/18 at 19:01; Status DC Quetiapine Fumarate (SEROquel) 12.5 mg 1200 PO ; Start 03/22/18 at 12:00; Stop 03/22/18 at 12:00; Status DC Quetiapine Fumarate (SEROquel) 25 mg 1200 PO Last administered on 03/23/18at 13: 09; Start 03/22/18 at 12:00; Stop 03/23/18 at 19:01; Status DC Methylnaltrexone [place] (Relistor) 6 mg 1X ONCE SQ Last administered on at 14:52; Start 03/23/18 at 13:30; Stop 03/23/18 at 13:31; Status DC Sucralfate (Carafate) 1 gm BID@0700,1600 PO Last administered on 03/24/18at 17: 43; Start 03/24/18 at 07:00 Quetiapine Fumarate (SEROquel) 37.5 mg 0900,1700 PO Last administered on at 17:43; Start 03/24/18 at 09:00 Quetiapine Fumarate (SEROquel) 37.5 mg 1200 PO Last administered on 03/24/18at 12:35; Start 03/24/18 at 12:00 Fluvoxamine Maleate (Luvox) 75 mg DAILY PO Last administered on 03/24/18at 19:54 ; Start 03/24/18 at 21:00 Active Scripts Active Reported Oxycodone Hcl 5 Mg Capsule 5 Mg PO PRN Q12HR PRN Fluvoxamine Maleate 50 Mg Tablet 25 Mg PO DAILY Seroquel (Quetiapine Fumarate) 25 Mg Tablet 12.5 Mg PO QID Miralax (Polyethylene Glycol 3350) 17 Gm Powd.pack 17 Gm PO DAILY Klor-Con M20 (Potassium Chloride) 20 Meq Tab.er.prt 20 Meq PO DAILY Sucralfate 1 Gm Tablet 2 Gm PO DAILY Mirtazapine 15 Mg Tablet 15 Mg PO QHS Reglan (Metoclopramide Hcl) 10 Mg Tablet 5 Mg PO HS Alprazolam 0.5 Mg Tablet 0.5 Mg PO PRN Q4HRS PRN I have reviewed the current psychotropics carefully including drug interactions. Risk benefit ratio favors no change other than as noted in my dictated progress note. Diagnosis: Problems: (1) Anxiety disorder (2) Impulse control disorder (3) Major depressive disorder, recurrent episode (4) Panic disorder with agoraphobia and severe panic attacks (5) Depression (6) Obsessive compulsive disorder MELISSA BASHIR MD March 24, 2018 23:33
[2018-03-25] MEDS: SUCRALFATE 1 GM TABLET. PO SCH ×2 (05:44→17:47)
[2018-03-25 06:31] VITALS: BP 114/69
[2018-03-25] MEDS: QUEtiapine 25 MG TABLET. PO SCH ×3 (08:18→17:48)
[2018-03-25] MEDS: DOCUSATE SODIUM 100 MG CAPSULE PO SCH ×2 (08:18→19:33)
[2018-03-25] MEDS: POLYETHYLENE GLYCOL 3350 17 GM PACKET. PO SCH (08:18)
[2018-03-25] MEDS: ALPRAZolam 0.5 MG TABLET PO PRN ×2 (08:21→17:47)
[2018-03-25] MEDS: POTASSIUM CHLORIDE 20 MEQ TABLET.ER. PO SCH (08:21)
[2018-03-25] MEDS: oxyCODONE IR 5 MG TABLET PO PRN ×2 (08:21→19:33)
[2018-03-25 16:58] VITALS: BP 128/80
[2018-03-25] MEDS: ACETAMINOPHEN 325 MG TABLET PO PRN (17:47)
[2018-03-25] MEDS: MIRTAZAPINE 15 MG TABLET PO SCH (19:33)
[2018-03-25] MEDS: METOCLOPRAMIDE 5 MG TABLET PO SCH (19:33)
--- NOTE | 2018-03-25 21:09 | PDOC ---
Exam Note: Edwin Note: Please also refer to the separate dictated note~for this date of service dictated separately.~Patient seen individually. Discussed the patient with Nursing staff reviewed the chart.~Reviewed interim history and current functioning. Reviewed vital signs,~Labs/ Radiology~and current medications noted below. Continue current treatment with the changes noted in the dictated addendum note Assessment: Vital Signs: Vital Signs Date Time Temp Pulse Resp B/P (MAP) Pulse Ox O2 Delivery O2 Flow Rate FiO2 03/25/18 19:33 18 97 Room Air 03/25/18 16:58 97.6 94 128/80 (96) I&O Intake and Output 03/25/18 07:00 Intake Total 920 ml Balance 920 ml Intake Oral 920 ml Current Medications: Meds: Current Medications Mirtazapine (Remeron) 15 mg 1X ONCE PO Last administered on 03/19/18at 21:58; Start 03/19/18 at 21:30; Stop 03/19/18 at 21:36; Status DC Quetiapine Fumarate (SEROquel) 12.5 mg 1X STAT PO Last administered on at 21:58; Start 03/19/18 at 21:30; Stop 03/19/18 at 21:36; Status DC Acetaminophen (Tylenol) 650 mg PRN Q6HRS PRN PO PAIN / TEMP Last administered on 03/25/18at 17:47; Start 03/20/18 at 00:00 Multi-Ingredient Ointment (Analgesic [place]) 1 declan PRN QID PRN TP MUSCLE PAIN; Start 03/20/18 at 00:00 Al Hydroxide/Mg Hydroxide (Mylanta Plus Xs) 15 ml PRN AFTMEALHC PRN PO DYSPEPSIA Last administered on 03/24/18at 15:47; Start 03/20/18 at 00:00 Magnesium Hydroxide (Milk Of Magnesia) 2,400 mg PRN QHS PRN PO CONSTIPATION; Start 03/20/18 at 00:00 Alprazolam (Xanax) 0.5 mg PRN Q4HRS PRN PO ANXIETY / AGITATION Last administered on 03/25/18at 17:47; Start 03/20/18 at 00:45 Fluvoxamine Maleate (Luvox) 25 mg DAILY PO Last administered on 03/20/18at 07:58 ; Start 03/20/18 at 09:00; Stop 03/20/18 at 18:44; Status DC Mirtazapine (Remeron) 15 mg QHS PO Last administered on 03/25/18 19:33; Start 03/20/18 at 21:00 Quetiapine Fumarate (SEROquel) 12.5 mg QID PO Last administered on 03/21/18 17 :17; Start 03/20/18 at 09:00; Stop 03/21/18 at 18:46; Status DC Potassium Chloride (Klor-Con) 20 meq DAILY PO Last administered on 03/25/18 08 :21; Start 03/20/18 at 09:00 Metoclopramide HCl (Reglan) 5 mg HS PO Last administered on 03/25/18 19:33; Start 03/20/18 at 21:00 Oxycodone HCl (Roxicodone) 5 mg PRN Q12HR PRN PO PAIN Last administered on 03/25 19:33; Start 03/20/18 at 00:45 Polyethylene Glycol (miraLAX) 17 gm DAILY PO Last administered on 03/25/18 08: 18; Start 03/20/18 at 09:00 Sucralfate (Carafate) 2 gm DAILYAC PO Last administered on 03/23/18at 07:54; Start 03/20/18 at 07:30; Stop 03/23/18 at 18:28; Status DC Fluvoxamine Maleate (Luvox) 50 mg DAILY PO Last administered on 03/24/18at 08:23 ; Start 03/21/18 at 09:00; Stop 03/24/18 at 18:27; Status DC Iohexol (Omnipaque 240 Mg/ml) 50 ml 1X ONCE PO Last administered on 03/21/18at 09:17; Start 03/21/18 at 08:30; Stop 03/21/18 at 08:37; Status DC Iohexol (Omnipaque 300 Mg/ml) 75 ml 1X ONCE IV ; Start 03/21/18 at 08:30; Stop 03/21/18 at 08:37; Status DC Info (Do NOT chart on this entry -- for MONITORING) 1 each PRN DAILY PRN MC SEE COMMENTS; Start 03/21/18 at 08:45; Stop 03/23/18 at 08:44; Status DC Docusate Sodium (Colace) 100 mg BID PO Last administered on 03/25/18at 19:33; Start 03/21/18 at 21:00 Sennosides (Senna) 17.2 mg PRN BID PRN PO CONSTIPATION; Start 03/21/18 at 18:45 Quetiapine Fumarate (SEROquel) 25 mg 0900,1700 PO Last administered on at 17:07; Start 03/22/18 at 09:00; Stop 03/23/18 at 19:01; Status DC Quetiapine Fumarate (SEROquel) 12.5 mg 1200 PO ; Start 03/22/18 at 12:00; Stop 03/22/18 at 12:00; Status DC Quetiapine Fumarate (SEROquel) 25 mg 1200 PO Last administered on 03/23/18at 13: 09; Start 03/22/18 at 12:00; Stop 03/23/18 at 19:01; Status DC Methylnaltrexone [place] (Relistor) 6 mg 1X ONCE SQ Last administered on at 14:52; Start 03/23/18 at 13:30; Stop 03/23/18 at 13:31; Status DC Sucralfate (Carafate) 1 gm BID@0700,1600 PO Last administered on 03/25/18at 17: 47; Start 03/24/18 at 07:00 Quetiapine Fumarate (SEROquel) 37.5 mg 0900,1700 PO Last administered on at 17:48; Start 03/24/18 at 09:00 Quetiapine Fumarate (SEROquel) 37.5 mg 1200 PO Last administered on 03/25/18at 13:15; Start 03/24/18 at 12:00 Fluvoxamine Maleate (Luvox) 75 mg DAILY PO Last administered on 03/25/18at 08:18 ; Start 03/24/18 at 21:00 Active Scripts Active Reported Oxycodone Hcl 5 Mg Capsule 5 Mg PO PRN Q12HR PRN Fluvoxamine Maleate 50 Mg Tablet 25 Mg PO DAILY Seroquel (Quetiapine Fumarate) 25 Mg Tablet 12.5 Mg PO QID Miralax (Polyethylene Glycol 3350) 17 Gm Powd.pack 17 Gm PO DAILY Klor-Con M20 (Potassium Chloride) 20 Meq Tab.er.prt 20 Meq PO DAILY Sucralfate 1 Gm Tablet 2 Gm PO DAILY Mirtazapine 15 Mg Tablet 15 Mg PO QHS Reglan (Metoclopramide Hcl) 10 Mg Tablet 5 Mg PO HS Alprazolam 0.5 Mg Tablet 0.5 Mg PO PRN Q4HRS PRN I have reviewed the current psychotropics carefully including drug interactions. Risk benefit ratio favors no change other than as noted in my dictated progress note. Diagnosis: Problems: (1) Anxiety disorder (2) Impulse control disorder (3) Major depressive disorder, recurrent episode (4) Panic disorder with agoraphobia and severe panic attacks (5) Depression (6) Obsessive compulsive disorder MELISSA BASHIR MD March 25, 2018 21:09
[2018-03-26] MEDS: SUCRALFATE 1 GM TABLET. PO SCH ×2 (06:05→17:35)
[2018-03-26 06:23] VITALS: BP 111/59
[2018-03-26] MEDS: DOCUSATE SODIUM 100 MG CAPSULE PO SCH ×2 (08:45→20:33)
[2018-03-26] MEDS: POTASSIUM CHLORIDE 20 MEQ TABLET.ER. PO SCH ×2 (08:46→20:35)
[2018-03-26] MEDS: QUEtiapine 25 MG TABLET. PO SCH ×3 (08:46→17:35)
[2018-03-26] MEDS: POLYETHYLENE GLYCOL 3350 17 GM PACKET. PO SCH (08:46)
[2018-03-26] MEDS: ALPRAZolam 0.5 MG TABLET PO PRN ×3 (09:23→20:35)
[2018-03-26 10:07] LABS: BASO % 1 % (0-3); EOS # 0.1 x10^3/uL (0.0-0.7); EOS % 2 % (0-3); HEMATOCRIT 40.7 % (36.0-47.0); HEMOGLOBIN 13.4 g/dL (12.0-15.5); LYMPH # 0.7 x10^3/uL (1.0-4.8); LYMPH % 24 % (24-48); MEAN CORPUSCULAR HEMOGLOBIN 33 pg (25-35); MEAN CORPUSCULAR HGB CONC 33 g/dL (31-37); MEAN CORPUSCULAR VOLUME 100 fL (79-100); MONO # 0.3 x10^3/uL (0.0-1.1); MONO % 11 % (0-9); NEUT % 63 % (31-73); PLATELET COUNT 220 x10^3/uL (140-400); RED BLOOD COUNT 4.09 x10^6/uL (3.50-5.40); RED CELL DISTRIBUTION WIDTH 12.8 % (11.5-14.5); WHITE BLOOD COUNT 3.2 x10^3/uL (4.0-11.0)
[2018-03-26 10:42] LABS: ALBUMIN 3.6 g/dL (3.4-5.0); CALCIUM 8.8 mg/dL (8.5-10.1); CREATININE 0.7 mg/dL (0.6-1.0); GFR 82.3; POTASSIUM 3.3 mmol/L (3.5-5.1); TOTAL BILIRUBIN 0.3 mg/dL (0.2-1.0); TOTAL PROTEIN 7.2 g/dL (6.4-8.2)
[2018-03-26 16:11] VITALS: BP 101/66
[2018-03-26] MEDS: METOCLOPRAMIDE 5 MG TABLET PO SCH (20:33)
[2018-03-26] MEDS: MIRTAZAPINE 15 MG TABLET PO SCH (20:33)
--- NOTE | 2018-03-26 20:53 | PDOC ---
Exam Note: Edwin Note: Please also refer to the separate dictated note~for this date of service dictated separately.~Patient seen individually. Discussed the patient with Nursing staff reviewed the chart.~Reviewed interim history and current functioning. Reviewed vital signs,~Labs/ Radiology~and current medications noted below. Continue current treatment with the changes noted in the dictated addendum note Assessment: Vital Signs: Vital Signs Date Time Temp Pulse Resp B/P (MAP) Pulse Ox O2 Delivery O2 Flow Rate FiO2 03/26/18 16:11 98.7 95 18 101/66 (78) 96 03/25/18 20:33 Room Air I&O Intake and Output 03/26/18 07:00 Intake Total 940 ml Balance 940 ml Intake Oral 940 ml # Voids 1 Labs: Laboratory Tests Test 03/26/18 09:54 White Blood Count 3.2 x10^3/uL (4.0-11.0) L Red Blood Count 4.09 x10^6/uL (3.50-5.40) Hemoglobin 13.4 g/dL (12.0-15.5) Hematocrit 40.7 % (36.0-47.0) Mean Corpuscular Volume 100 fL (79-100) Mean Corpuscular Hemoglobin 33 pg (25-35) Mean Corpuscular Hemoglobin Concent 33 g/dL (31-37) Red Cell Distribution Width 12.8 % (11.5-14.5) Platelet Count 220 x10^3/uL (140-400) Neutrophils (%) (Auto) 63 % (31-73) Lymphocytes (%) (Auto) 24 % (24-48) Monocytes (%) (Auto) 11 % (0-9) H Eosinophils (%) (Auto) 2 % (0-3) Basophils (%) (Auto) 1 % (0-3) Neutrophils # (Auto) 2.0 x10^3uL (1.8-7.7) Lymphocytes # (Auto) 0.7 x10^3/uL (1.0-4.8) L Monocytes # (Auto) 0.3 x10^3/uL (0.0-1.1) Eosinophils # (Auto) 0.1 x10^3/uL (0.0-0.7) Basophils # (Auto) 0.0 x10^3/uL (0.0-0.2) Sodium Level 142 mmol/L (136-145) Potassium Level 3.3 mmol/L (3.5-5.1) L Chloride Level 103 mmol/L (98-107) Carbon Dioxide Level 33 mmol/L (21-32) H Anion Gap 6 (6-14) Blood Urea Nitrogen 11 mg/dL (7-20) Creatinine 0.7 mg/dL (0.6-1.0) Estimated GFR (Cockcroft-Gault) 82.3 BUN/Creatinine Ratio 16 (6-20) Glucose Level 79 mg/dL (70-99) Calcium Level 8.8 mg/dL (8.5-10.1) Total Bilirubin 0.3 mg/dL (0.2-1.0) Aspartate Amino Transferase (AST) 22 U/L (15-37) Alanine Aminotransferase (ALT) 21 U/L (14-59) Alkaline Phosphatase 72 U/L (46-116) Total Protein 7.2 g/dL (6.4-8.2) Albumin 3.6 g/dL (3.4-5.0) Albumin/Globulin Ratio 1.0 (1.0-1.7) Current Medications: Meds: Current Medications Mirtazapine (Remeron) 15 mg 1X ONCE PO Last administered on 03/19/18at 21:58; Start 03/19/18 at 21:30; Stop 03/19/18 at 21:36; Status DC Quetiapine Fumarate (SEROquel) 12.5 mg 1X STAT PO Last administered on at 21:58; Start 03/19/18 at 21:30; Stop 03/19/18 at 21:36; Status DC Acetaminophen (Tylenol) 650 mg PRN Q6HRS PRN PO PAIN / TEMP Last administered on 03/25/18at 17:47; Start 03/20/18 at 00:00 Multi-Ingredient Ointment (Analgesic [place]) 1 declan PRN QID PRN TP MUSCLE PAIN; Start 03/20/18 at 00:00 Al Hydroxide/Mg Hydroxide (Mylanta Plus Xs) 15 ml PRN AFTMEALHC PRN PO DYSPEPSIA Last administered on 03/24/18at 15:47; Start 03/20/18 at 00:00 Magnesium Hydroxide (Milk Of Magnesia) 2,400 mg PRN QHS PRN PO CONSTIPATION; Start 03/20/18 at 00:00 Alprazolam (Xanax) 0.5 mg PRN Q4HRS PRN PO ANXIETY / AGITATION Last administered on 03/26/18 20:35; Start 03/20/18 at 00:45 Fluvoxamine Maleate (Luvox) 25 mg DAILY PO Last administered on 03/20/18at 07:58 ; Start 03/20/18 at 09:00; Stop 03/20/18 at 18:44; Status DC Mirtazapine (Remeron) 15 mg QHS PO Last administered on 03/26/18 20:33; Start 03/20/18 at 21:00 Quetiapine Fumarate (SEROquel) 12.5 mg QID PO Last administered on 03/21/18 17 :17; Start 03/20/18 at 09:00; Stop 03/21/18 at 18:46; Status DC Potassium Chloride (Klor-Con) 20 meq DAILY PO Last administered on 03/26/18 08 :46; Start 03/20/18 at 09:00; Stop 03/26/18 at 15:34; Status DC Metoclopramide HCl (Reglan) 5 mg HS PO Last administered on 03/26/18 20:33; Start 03/20/18 at 21:00 Oxycodone HCl (Roxicodone) 5 mg PRN Q12HR PRN PO PAIN Last administered on 03/25 19:33; Start 03/20/18 at 00:45 Polyethylene Glycol (miraLAX) 17 gm DAILY PO Last administered on 03/26/18 08: 46; Start 03/20/18 at 09:00 Sucralfate (Carafate) 2 gm DAILYAC PO Last administered on 03/23/18 07:54; Start 03/20/18 at 07:30; Stop 03/23/18 at 18:28; Status DC Fluvoxamine Maleate (Luvox) 50 mg DAILY PO Last administered on 03/24/18at 08:23 ; Start 03/21/18 at 09:00; Stop 03/24/18 at 18:27; Status DC Iohexol (Omnipaque 240 Mg/ml) 50 ml 1X ONCE PO Last administered on 03/21/18at 09:17; Start 03/21/18 at 08:30; Stop 03/21/18 at 08:37; Status DC Iohexol (Omnipaque 300 Mg/ml) 75 ml 1X ONCE IV ; Start 03/21/18 at 08:30; Stop 03/21/18 at 08:37; Status DC Info (Do NOT chart on this entry -- for MONITORING) 1 each PRN DAILY PRN MC SEE COMMENTS; Start 03/21/18 at 08:45; Stop 03/23/18 at 08:44; Status DC Docusate Sodium (Colace) 100 mg BID PO Last administered on 03/26/18at 20:33; Start 03/21/18 at 21:00 Sennosides (Senna) 17.2 mg PRN BID PRN PO CONSTIPATION; Start 03/21/18 at 18:45 Quetiapine Fumarate (SEROquel) 25 mg 0900,1700 PO Last administered on at 17:07; Start 03/22/18 at 09:00; Stop 03/23/18 at 19:01; Status DC Quetiapine Fumarate (SEROquel) 12.5 mg 1200 PO ; Start 03/22/18 at 12:00; Stop 03/22/18 at 12:00; Status DC Quetiapine Fumarate (SEROquel) 25 mg 1200 PO Last administered on 03/23/18at 13: 09; Start 03/22/18 at 12:00; Stop 03/23/18 at 19:01; Status DC Methylnaltrexone [place] (Relistor) 6 mg 1X ONCE SQ Last administered on at 14:52; Start 03/23/18 at 13:30; Stop 03/23/18 at 13:31; Status DC Sucralfate (Carafate) 1 gm BID@0700,1600 PO Last administered on 03/26/18at 17: 35; Start 03/24/18 at 07:00 Quetiapine Fumarate (SEROquel) 37.5 mg 0900,1700 PO Last administered on at 17:35; Start 03/24/18 at 09:00 Quetiapine Fumarate (SEROquel) 37.5 mg 1200 PO Last administered on 03/26/18at 13:31; Start 03/24/18 at 12:00 Fluvoxamine Maleate (Luvox) 75 mg DAILY PO Last administered on 03/26/18at 08:46 ; Start 03/24/18 at 21:00 Potassium Chloride (Klor-Con) 20 meq TID PO Last administered on 03/26/18at 20: 35; Start 03/26/18 at 21:00 Active Scripts Active Reported Oxycodone Hcl 5 Mg Capsule 5 Mg PO PRN Q12HR PRN Fluvoxamine Maleate 50 Mg Tablet 25 Mg PO DAILY Seroquel (Quetiapine Fumarate) 25 Mg Tablet 12.5 Mg PO QID Miralax (Polyethylene Glycol 3350) 17 Gm Powd.pack 17 Gm PO DAILY Klor-Con M20 (Potassium Chloride) 20 Meq Tab.er.prt 20 Meq PO DAILY Sucralfate 1 Gm Tablet 2 Gm PO DAILY Mirtazapine 15 Mg Tablet 15 Mg PO QHS Reglan (Metoclopramide Hcl) 10 Mg Tablet 5 Mg PO HS Alprazolam 0.5 Mg Tablet 0.5 Mg PO PRN Q4HRS PRN I have reviewed the current psychotropics carefully including drug interactions. Risk benefit ratio favors no change other than as noted in my dictated progress note. Diagnosis: Problems: (1) Anxiety disorder (2) Impulse control disorder (3) Major depressive disorder, recurrent episode (4) Panic disorder with agoraphobia and severe panic attacks (5) Depression (6) Obsessive compulsive disorder MELISSA BASHIR MD March 26, 2018 20:53
--- NOTE | 2018-03-26 23:05 | PN ---
DATE: 03/24/2018 PSYCHIATRIC PROGRESS NOTE This is a late entry, date of service 03/24/2018, covers elements not covered in my initial note 03/24/2018. SUBJECTIVE: The patient slept 7 hours, has significant ongoing GI symptoms. REVIEW OF SYSTEMS: No CV, , pulmonary system symptoms on review. MENTAL STATUS EXAM: Oriented reasonably. Speech coherent, abstraction fair, computation impaired, language function intact. Mood and affect remain somewhat anxious, labile. LABORATORY DATA: Reviewed. IMPRESSION: Major depressive disorder with psychotic features; generalized anxiety disorder. PLAN: The patient wanted to her Xanax changed to q.4 hours and risk benefit ratio does not favor this. No CV, , pulmonary, eye system symptoms on review. Mental status exam reasonably oriented. Speech coherent, abstraction fair, computation impaired, language function intact. Mood and affect showing improvement. Labs reviewed. Impression unchanged from initial note. Plan is to increase Luvox from 50 mg a day to 75 mg a day. Rest unchanged and Xanax will be changed to every 4 hours p.r.n. MAN Scooter BASHIR MD DR: CARRILLO/praful JOB#: [id number] / [id number]
--- NOTE | 2018-03-26 23:17 | PN ---
DATE: 03/23/2018 PSYCHIATRIC PROGRESS NOTE This late entry 03/23/2018 covers elements not covered in my initial note. SUBJECTIVE: In the morning she wanted a pain killer, received Tylenol at 8:30 a.m., GI symptoms started around 11:10 a.m. REVIEW OF SYSTEMS: No CV, , pulmonary, eye system symptoms on review. She complains of GI discomfort. MENTAL STATUS EXAM: Reasonably oriented. Speech coherent, has some latency. Abstraction fair, computation impaired, language function intact, attention span short. Mood and affect somewhat labile. LABORATORIES: Reviewed. IMPRESSION: Unchanged from initial note. PLAN: Increase Seroquel to 37.5 mg 3 times a day. Rest unchanged. MAN Scooter BASHIR MD DR: CARRILLO/praful JOB#: [id number] / [id number]
[2018-03-27] MEDS: MAG HYDROX/AL HYDROX/SIMETH 30 ML ORAL.SUSP PO PRN ×2 (03:11→11:43)
[2018-03-27] MEDS: oxyCODONE IR 5 MG TABLET PO PRN (03:12)
[2018-03-27 06:28] VITALS: BP 107/65
[2018-03-27] MEDS: SUCRALFATE 1 GM TABLET. PO SCH ×2 (06:29→16:40)
[2018-03-27] MEDS: DOCUSATE SODIUM 100 MG CAPSULE PO SCH ×2 (09:30→19:27)
[2018-03-27] MEDS: POLYETHYLENE GLYCOL 3350 17 GM PACKET. PO SCH (09:30)
[2018-03-27] MEDS: ALPRAZolam 0.5 MG TABLET PO PRN ×3 (09:30→20:12)
[2018-03-27] MEDS: POTASSIUM CHLORIDE 20 MEQ TABLET.ER. PO SCH ×3 (09:31→19:27)
[2018-03-27] MEDS: QUEtiapine 25 MG TABLET. PO SCH ×3 (09:31→16:40)
[2018-03-27] MEDS ORDERED: ONDANSETRON ODT 4 MG TAB.RAPDIS PO PRN (15:45)
[2018-03-27 16:25] VITALS: BP 98/60
[2018-03-27] MEDS: MIRTAZAPINE 15 MG TABLET PO SCH (19:27)
[2018-03-27] MEDS: METOCLOPRAMIDE 5 MG TABLET PO SCH (19:27)
--- NOTE | 2018-03-27 20:55 | PDOC ---
Exam Note: Edwin Note: Please also refer to the separate dictated note~for this date of service dictated separately.~Patient seen individually. Discussed the patient with Nursing staff reviewed the chart.~Reviewed interim history and current functioning. Reviewed vital signs,~Labs/ Radiology~and current medications noted below. Continue current treatment with the changes noted in the dictated addendum note Assessment: Vital Signs: Vital Signs Date Time Temp Pulse Resp B/P (MAP) Pulse Ox O2 Delivery O2 Flow Rate FiO2 03/27/18 16:25 98.1 96 16 98/60 (73) 98 03/27/18 03:12 Room Air I&O Intake and Output 03/27/18 07:00 Intake Total 960 ml Balance 960 ml Intake Oral 960 ml # Voids 1 Current Medications: Meds: Current Medications Mirtazapine (Remeron) 15 mg 1X ONCE PO Last administered on 03/19/18 21:58; Start 03/19/18 at 21:30; Stop 03/19/18 at 21:36; Status DC Quetiapine Fumarate (SEROquel) 12.5 mg 1X STAT PO Last administered on at 21:58; Start 03/19/18 at 21:30; Stop 03/19/18 at 21:36; Status DC Acetaminophen (Tylenol) 650 mg PRN Q6HRS PRN PO PAIN / TEMP Last administered on 03/25/18at 17:47; Start 03/20/18 at 00:00 Multi-Ingredient Ointment (Analgesic [place]) 1 declan PRN QID PRN TP MUSCLE PAIN; Start 03/20/18 at 00:00 Al Hydroxide/Mg Hydroxide (Mylanta Plus Xs) 15 ml PRN AFTMEALHC PRN PO DYSPEPSIA Last administered on 03/27/18at 11:43; Start 03/20/18 at 00:00 Magnesium Hydroxide (Milk Of Magnesia) 2,400 mg PRN QHS PRN PO CONSTIPATION; Start 03/20/18 at 00:00 Alprazolam (Xanax) 0.5 mg PRN Q4HRS PRN PO ANXIETY / AGITATION Last administered on 03/27/18at 20:12; Start 03/20/18 at 00:45 Fluvoxamine Maleate (Luvox) 25 mg DAILY PO Last administered on 03/20/18at 07:58 ; Start 03/20/18 at 09:00; Stop 03/20/18 at 18:44; Status DC Mirtazapine (Remeron) 15 mg QHS PO Last administered on 03/27/18 19:27; Start 03/20/18 at 21:00 Quetiapine Fumarate (SEROquel) 12.5 mg QID PO Last administered on 03/21/18 17 :17; Start 03/20/18 at 09:00; Stop 03/21/18 at 18:46; Status DC Potassium Chloride (Klor-Con) 20 meq DAILY PO Last administered on 03/26/18 08 :46; Start 03/20/18 at 09:00; Stop 03/26/18 at 15:34; Status DC Metoclopramide HCl (Reglan) 5 mg HS PO Last administered on 03/27/18 19:27; Start 03/20/18 at 21:00 Oxycodone HCl (Roxicodone) 5 mg PRN Q12HR PRN PO PAIN Last administered on 03/27 03:12; Start 03/20/18 at 00:45 Polyethylene Glycol (miraLAX) 17 gm DAILY PO Last administered on 03/27/18 09: 30; Start 03/20/18 at 09:00 Sucralfate (Carafate) 2 gm DAILYAC PO Last administered on 03/23/18at 07:54; Start 03/20/18 at 07:30; Stop 03/23/18 at 18:28; Status DC Fluvoxamine Maleate (Luvox) 50 mg DAILY PO Last administered on 03/24/18at 08:23 ; Start 03/21/18 at 09:00; Stop 03/24/18 at 18:27; Status DC Iohexol (Omnipaque 240 Mg/ml) 50 ml 1X ONCE PO Last administered on 03/21/18 09:17; Start 03/21/18 at 08:30; Stop 03/21/18 at 08:37; Status DC Iohexol (Omnipaque 300 Mg/ml) 75 ml 1X ONCE IV ; Start 03/21/18 at 08:30; Stop 03/21/18 at 08:37; Status DC Info (Do NOT chart on this entry -- for MONITORING) 1 each PRN DAILY PRN MC SEE COMMENTS; Start 03/21/18 at 08:45; Stop 03/23/18 at 08:44; Status DC Docusate Sodium (Colace) 100 mg BID PO Last administered on 03/27/18at 19:27; Start 03/21/18 at 21:00 Sennosides (Senna) 17.2 mg PRN BID PRN PO CONSTIPATION; Start 03/21/18 at 18:45 Quetiapine Fumarate (SEROquel) 25 mg 0900,1700 PO Last administered on at 17:07; Start 03/22/18 at 09:00; Stop 03/23/18 at 19:01; Status DC Quetiapine Fumarate (SEROquel) 12.5 mg 1200 PO ; Start 03/22/18 at 12:00; Stop 03/22/18 at 12:00; Status DC Quetiapine Fumarate (SEROquel) 25 mg 1200 PO Last administered on 03/23/18at 13: 09; Start 03/22/18 at 12:00; Stop 03/23/18 at 19:01; Status DC Methylnaltrexone [place] (Relistor) 6 mg 1X ONCE SQ Last administered on at 14:52; Start 03/23/18 at 13:30; Stop 03/23/18 at 13:31; Status DC Sucralfate (Carafate) 1 gm BID@0700,1600 PO Last administered on 03/27/18at 16: 40; Start 03/24/18 at 07:00 Quetiapine Fumarate (SEROquel) 37.5 mg 0900,1700 PO Last administered on at 16:40; Start 03/24/18 at 09:00 Quetiapine Fumarate (SEROquel) 37.5 mg 1200 PO Last administered on 03/27/18at 11:43; Start 03/24/18 at 12:00 Fluvoxamine Maleate (Luvox) 75 mg DAILY PO Last administered on 03/27/18at 09:30 ; Start 03/24/18 at 21:00; Stop 03/28/18 at 06:00 Potassium Chloride (Klor-Con) 20 meq TID PO Last administered on 03/27/18at 19: 27; Start 03/26/18 at 21:00 Fluvoxamine Maleate (Luvox) 75 mg DAILY PO ; Start 03/27/18 at 09:00; Stop 03/27 at 09:00; Status DC Fluvoxamine Maleate (Luvox) 100 mg DAILY PO ; Start 03/28/18 at 09:00 Ondansetron HCl (Zofran Odt) 4 mg PRN Q8HRS PRN PO NAUSEA/VOMITING; Start 03/27 at 15:45 Active Scripts Active Reported Oxycodone Hcl 5 Mg Capsule 5 Mg PO PRN Q12HR PRN Fluvoxamine Maleate 50 Mg Tablet 25 Mg PO DAILY Seroquel (Quetiapine Fumarate) 25 Mg Tablet 12.5 Mg PO QID Miralax (Polyethylene Glycol 3350) 17 Gm Powd.pack 17 Gm PO DAILY Klor-Con M20 (Potassium Chloride) 20 Meq Tab.er.prt 20 Meq PO DAILY Sucralfate 1 Gm Tablet 2 Gm PO DAILY Mirtazapine 15 Mg Tablet 15 Mg PO QHS Reglan (Metoclopramide Hcl) 10 Mg Tablet 5 Mg PO HS Alprazolam 0.5 Mg Tablet 0.5 Mg PO PRN Q4HRS PRN I have reviewed the current psychotropics carefully including drug interactions. Risk benefit ratio favors no change other than as noted in my dictated progress note. Diagnosis: Problems: (1) Anxiety disorder (2) Impulse control disorder (3) Major depressive disorder, recurrent episode (4) Panic disorder with agoraphobia and severe panic attacks (5) Depression (6) Obsessive compulsive disorder MELISSA BASHIR MD March 27, 2018 20:55
[2018-03-27] MEDS ORDERED: SENN-79 PO (23:17)
[2018-03-27] MEDS ORDERED: QUET25TA5 PO (23:19)
[2018-03-27] MEDS ORDERED: DOCU100C28 PO (23:19)
[2018-03-27] MEDS ORDERED: ACET325T9 PO (23:20)
[2018-03-27] MEDS ORDERED: MAGN2400 PO (23:22)
[2018-03-27] MEDS ORDERED: METH29OI TP (23:24)
[2018-03-27] MEDS ORDERED: MAG355OR11 PO (23:25)
[2018-03-27] MEDS ORDERED: ONDA8TAB12 PO (23:28)
[2018-03-28] MEDS: MAG HYDROX/AL HYDROX/SIMETH 30 ML ORAL.SUSP PO PRN ×2 (02:11→10:21)
[2018-03-28] MEDS: ALPRAZolam 0.5 MG TABLET PO PRN ×3 (02:11→16:00)
[2018-03-28 06:11] VITALS: BP 113/67
[2018-03-28] MEDS: SUCRALFATE 1 GM TABLET. PO SCH ×2 (06:13→16:00)
[2018-03-28] MEDS: QUEtiapine 25 MG TABLET. PO SCH ×2 (09:24→14:21)
[2018-03-28] MEDS: POTASSIUM CHLORIDE 20 MEQ TABLET.ER. PO SCH ×2 (09:24→14:20)
[2018-03-28] MEDS: DOCUSATE SODIUM 100 MG CAPSULE PO SCH (09:24)
[2018-03-28] MEDS: POLYETHYLENE GLYCOL 3350 17 GM PACKET. PO SCH (09:27)
[2018-03-28] MEDS: oxyCODONE IR 5 MG TABLET PO PRN (10:53)
--- NOTE | 2018-03-28 13:03 | PN ---
DATE: 03/25/2018 This is a late entry 03/25/2018, covers elements not covered in my initial note 03/25/2018. Met with the patient in the evening. The patient remains somewhat anxious, restless, labile, obsessive regarding somatic symptoms and anxiety. No CV, , pulmonary, eye system symptoms on review. She does have the GI symptoms, which are very persistent, unchanged from time to time. I met with her in her room. MENTAL STATUS EXAM: Reasonably oriented. Speech coherent, abstraction fair, computation impaired, language function intact, attention span short. Mood and affect still somewhat anxious, obsessive. LABORATORY DATA: Reviewed. IMPRESSION: Unchanged from initial note. PLAN: Continue current psychotropics. Luvox has been increased. Maintain Remeron, Seroquel along with Xanax p.r.n. MAN Scooter BASHIR MD DR: CARRILLO/praful JOB#: [id number] / [id number]
--- NOTE | 2018-03-28 13:06 | PN ---
DATE: 03/26/2018 This late entry, 03/26/2018, covers elements not covered in my initial note of 03/26/2018. SUBJECTIVE: I met with the patient in the evening. Overall, the patient has been doing better on 03/26/2018. She appeared more relaxed as I met with her, less somatically preoccupied, has received Xanax x 2. WBC is low at 3.2. We will request a pharmacy consult to see if any of her medications could be contributing to it then also defer to Dr. Duncan from a medical standpoint. REVIEW OF SYSTEMS: Still had some vague GI symptoms. No CV, , pulmonary, eye system symptoms on review. MENTAL STATUS EXAM: Reasonably oriented. Speech coherent and less pressured. Abstraction fair, computation impaired, language function intact. Mood and affect, still somewhat obsessive, anxious with occasional panic attacks, but much improved. LABORATORY DATA: Reviewed. IMPRESSION: Unchanged from my initial note. PLAN: Increase Luvox to 100 mg daily after she has been on 75 mg for 3 days. Continue Seroquel 37.5 mg at noon, 0900 and 1700, Remeron 15 mg at bedtime, Xanax p.r.n. MELISSA BASHIR MD DR: CARRILLO/praful JOB#: [id number] / [id number]
--- NOTE | 2018-03-28 20:49 | PDOC ---
Exam Note: Edwin Note: Please also refer to the separate dictated note~for this date of service dictated separately.~Patient seen individually. Discussed the patient with Nursing staff reviewed the chart.~Reviewed interim history and current functioning. Reviewed vital signs,~Labs/ Radiology~and current medications noted below. Continue current treatment with the changes noted in the dictated addendum note Assessment: Vital Signs: Vital Signs Date Time Temp Pulse Resp B/P (MAP) Pulse Ox O2 Delivery O2 Flow Rate FiO2 03/28/18 10:53 20 03/28/18 06:11 98.1 79 113/67 (82) 96 03/27/18 03:12 Room Air I&O Intake and Output 03/28/18 07:00 Intake Total 680 ml Balance 680 ml Intake Oral 680 ml Current Medications: Meds: Current Medications Mirtazapine (Remeron) 15 mg 1X ONCE PO Last administered on 03/19/18at 21:58; Start 03/19/18 at 21:30; Stop 03/19/18 at 21:36; Status DC Quetiapine Fumarate (SEROquel) 12.5 mg 1X STAT PO Last administered on at 21:58; Start 03/19/18 at 21:30; Stop 03/19/18 at 21:36; Status DC Acetaminophen (Tylenol) 650 mg PRN Q6HRS PRN PO PAIN / TEMP Last administered on 03/25/18at 17:47; Start 03/20/18 at 00:00; Stop 03/28/18 at 16:34; Status DC Multi-Ingredient Ointment (Analgesic [place]) 1 will PRN QID PRN TP MUSCLE PAIN; Start 03/20/18 at 00:00; Stop 03/28/18 at 16:34; Status DC Al Hydroxide/Mg Hydroxide (Mylanta Plus Xs) 15 ml PRN AFTMEALHC PRN PO DYSPEPSIA Last administered on 03/28/18at 10:21; Start 03/20/18 at 00:00; Stop at 16:34; Status DC Magnesium Hydroxide (Milk Of Magnesia) 2,400 mg PRN QHS PRN PO CONSTIPATION; Start 03/20/18 at 00:00; Stop 03/28/18 at 16:34; Status DC Alprazolam (Xanax) 0.5 mg PRN Q4HRS PRN PO ANXIETY / AGITATION Last administered on 03/28/18 16:00; Start 03/20/18 at 00:45; Stop 03/28/18 at 16:34 ; Status DC Fluvoxamine Maleate (Luvox) 25 mg DAILY PO Last administered on 03/20/18at 07:58 ; Start 03/20/18 at 09:00; Stop 03/20/18 at 18:44; Status DC Mirtazapine (Remeron) 15 mg QHS PO Last administered on 03/27/18at 19:27; Start 03/20/18 at 21:00; Stop 03/28/18 at 16:34; Status DC Quetiapine Fumarate (SEROquel) 12.5 mg QID PO Last administered on 03/21/18 17 :17; Start 03/20/18 at 09:00; Stop 03/21/18 at 18:46; Status DC Potassium Chloride (Klor-Con) 20 meq DAILY PO Last administered on 03/26/18at 08 :46; Start 03/20/18 at 09:00; Stop 03/26/18 at 15:34; Status DC Metoclopramide HCl (Reglan) 5 mg HS PO Last administered on 03/27/18at 19:27; Start 03/20/18 at 21:00; Stop 03/28/18 at 16:34; Status DC Oxycodone HCl (Roxicodone) 5 mg PRN Q12HR PRN PO PAIN Last administered on 03/28at 10:53; Start 03/20/18 at 00:45; Stop 03/28/18 at 16:34; Status DC Polyethylene Glycol (miraLAX) 17 gm DAILY PO Last administered on 03/27/18at 09: 30; Start 03/20/18 at 09:00; Stop 03/28/18 at 16:34; Status DC Sucralfate (Carafate) 2 gm DAILYAC PO Last administered on 03/23/18at 07:54; Start 03/20/18 at 07:30; Stop 03/23/18 at 18:28; Status DC Fluvoxamine Maleate (Luvox) 50 mg DAILY PO Last administered on 03/24/18at 08:23 ; Start 03/21/18 at 09:00; Stop 03/24/18 at 18:27; Status DC Iohexol (Omnipaque 240 Mg/ml) 50 ml 1X ONCE PO Last administered on 03/21/18at 09:17; Start 03/21/18 at 08:30; Stop 03/21/18 at 08:37; Status DC Iohexol (Omnipaque 300 Mg/ml) 75 ml 1X ONCE IV ; Start 03/21/18 at 08:30; Stop 03/21/18 at 08:37; Status DC Info (Do NOT chart on this entry -- for MONITORING) 1 each PRN DAILY PRN MC SEE COMMENTS; Start 03/21/18 at 08:45; Stop 03/23/18 at 08:44; Status DC Docusate Sodium (Colace) 100 mg BID PO Last administered on 03/28/18at 09:24; Start 03/21/18 at 21:00; Stop 03/28/18 at 16:34; Status DC Sennosides (Senna) 17.2 mg PRN BID PRN PO CONSTIPATION; Start 03/21/18 at 18:45 ; Stop 03/28/18 at 16:34; Status DC Quetiapine Fumarate (SEROquel) 25 mg 0900,1700 PO Last administered on at 17:07; Start 03/22/18 at 09:00; Stop 03/23/18 at 19:01; Status DC Quetiapine Fumarate (SEROquel) 12.5 mg 1200 PO ; Start 03/22/18 at 12:00; Stop 03/22/18 at 12:00; Status DC Quetiapine Fumarate (SEROquel) 25 mg 1200 PO Last administered on 03/23/18at 13: 09; Start 03/22/18 at 12:00; Stop 03/23/18 at 19:01; Status DC Methylnaltrexone [place] (Relistor) 6 mg 1X ONCE SQ Last administered on at 14:52; Start 03/23/18 at 13:30; Stop 03/23/18 at 13:31; Status DC Sucralfate (Carafate) 1 gm BID@0700,1600 PO Last administered on 03/28/18at 06: 13; Start 03/24/18 at 07:00; Stop 03/28/18 at 16:34; Status DC Quetiapine Fumarate (SEROquel) 37.5 mg 0900,1700 PO Last administered on at 09:24; Start 03/24/18 at 09:00; Stop 03/28/18 at 16:34; Status DC Quetiapine Fumarate (SEROquel) 37.5 mg 1200 PO Last administered on 03/28/18at 14:21; Start 03/24/18 at 12:00; Stop 03/28/18 at 16:34; Status DC Fluvoxamine Maleate (Luvox) 75 mg DAILY PO Last administered on 03/27/18at 09:30 ; Start 03/24/18 at 21:00; Stop 03/28/18 at 06:00; Status DC Potassium Chloride (Klor-Con) 20 meq TID PO Last administered on 03/28/18at 09: 24; Start 03/26/18 at 21:00; Stop 03/28/18 at 16:34; Status DC Fluvoxamine Maleate (Luvox) 75 mg DAILY PO ; Start 03/27/18 at 09:00; Stop 03/27 at 09:00; Status DC Fluvoxamine Maleate (Luvox) 100 mg DAILY PO Last administered on 03/28/18at 09: 27; Start 03/28/18 at 09:00; Stop 03/28/18 at 16:34; Status DC Ondansetron HCl (Zofran Odt) 4 mg PRN Q8HRS PRN PO NAUSEA/VOMITING; Start 03/27 at 15:45; Stop 03/28/18 at 16:34; Status DC Active Scripts Active Reported Zofran Odt (Ondansetron) 8 Mg Tab.rapdis 4 Mg PO PRN Q8HRS PRN Maalox Advanced Suspension (Mag Hydrox/Aluminum Hyd/Simeth) 355 Ml Oral.susp 15 Ml PO PRN AFTMEALHC PRN Analgesic [place] (Methyl Salicylate/Menthol) 28 Gm Oint...g. 1 Will TP PRN QID PRN Milk Of Magnesia (Magnesium Hydroxide) 2,400 Mg/10 Ml Oral.susp 2,400 Mg PO PRN QHS PRN Tylenol (Acetaminophen) 325 Mg Tablet 650 Mg PO PRN Q6HRS PRN Docusate Sodium 100 Mg Capsule 100 Mg PO BID Seroquel (Quetiapine Fumarate) 25 Mg Tablet 37.5 Mg PO TIDWMEALS [place] (Sennosides) 8.6 Mg Tablet 17.2 Mg PO PRN BID PRN Oxycodone Hcl 5 Mg Capsule 5 Mg PO PRN Q12HR PRN Fluvoxamine Maleate 50 Mg Tablet 100 Mg PO DAILY Miralax (Polyethylene Glycol 3350) 17 Gm Powd.pack 17 Gm PO DAILY Klor-Con M20 (Potassium Chloride) 20 Meq Tab.er.prt 20 Meq PO TID Sucralfate 1 Gm Tablet 1 Gm PO BID@0700,1600 Mirtazapine 15 Mg Tablet 15 Mg PO QHS Reglan (Metoclopramide Hcl) 10 Mg Tablet 5 Mg PO HS Alprazolam 0.5 Mg Tablet 0.5 Mg PO PRN Q4HRS PRN I have reviewed the current psychotropics carefully including drug interactions. Risk benefit ratio favors no change other than as noted in my dictated progress note. Diagnosis: Problems: (1) Anxiety disorder (2) Impulse control disorder (3) Major depressive disorder, recurrent episode (4) Panic disorder with agoraphobia and severe panic attacks (5) Obsessive compulsive disorder MELISSA BASHIR MD March 28, 2018 20:49
--- NOTE | 2018-03-29 03:21 | PN ---
DATE: 03/27/2018 This late entry 03/27/2018 covers elements not covered in my initial note 03/27/2018. SUBJECTIVE: I met with the patient in the evening at length in her room. The patient did better in the morning, but then was anxious, received Xanax at 9:30 a.m., 1:45 p.m. Still obsessive with GI symptoms. Received Mylanta at 11:45 a.m. Zofran for nausea. REVIEW OF SYSTEMS: Positive for her GI symptoms. No CV, , pulmonary, eye system symptoms on review. MENTAL STATUS EXAM: Reasonably oriented. Speech coherent, anxious. Abstraction fair, computation impaired, language function intact, attention span short. Mood and affect remains somewhat obsessive, anxious, labile, but improved. LABORATORY DATA: Reviewed. IMPRESSION: Major depressive disorder with psychotic features, obsessive compulsive disorder, generalized anxiety disorder, panic disorder. PLAN: Continue current psychotropics, may need to increase Luvox further. Rest unchanged per initial note. MAN Scooter BASHIR MD DR: CARRILLO/praful JOB#: [id number] / [id number]
--- NOTE | 2018-03-29 13:54 | DS ---
DATE OF DISCHARGE: 03/28/2018 DISCHARGE SUMMARY/PSYCHIATRIC PROGRESS NOTE This late entry, date of service, 03/28/2018, covers elements not covered in my initial note of 03/28/2018. REASON FOR ADMISSION: Please refer to the admission history for details. Briefly, the patient is a 72-year-old female who presented to my office. I have followed her for many years and was extremely anxious, having panic attacks repeatedly, unable to function, taking excessive amounts of Xanax causing her to have slurred speech. She is extremely obsessive, repetitive, somatically preoccupied. She has failed extensive outpatient psychiatric interventions and multiple psychiatric hospitalizations. She was readmitted for psychiatric stabilization. SIGNIFICANT FINDINGS AND CLINICAL COURSE: Following admission, the patient was seen daily individually by myself, followed medically per Dr. Duncan/Dr. Hunt. The patient was extremely obsessive, anxious, repetitive. Adjustments were made in her psychotropics and she seemed to respond to a combination of Luvox 75 mg a day, Seroquel 37.5 mg at 0900, noon, and 1700, Remeron 15 mg at bedtime, Xanax 0.5 mg q.4 hours p.r.n. anxiety. Gradually mood appeared to improve. She is less obsessive, less anxious, less somatically preoccupied. No suicidal or homicidal ideation at discharge. CONDITION AT DISCHARGE: Improved. MENTAL STATUS EXAM: The patient was seen individually. She is reasonably oriented. Speech coherent, rapid at times, obsessing about in-home Home Health Services that she is not willing to be involved with. Insight limited, judgment marginal, language function intact, attention span fair. Mood and affect showing improvement. No suicidal or homicidal ideation prior to discharge. FINAL DIAGNOSES: Major depressive disorder with psychotic features; obsessive compulsive disorder; anxiety disorder, unspecified. Rest unchanged from admission. DISCHARGE MEDICATIONS: Please refer to the MRAD. DISCHARGE INSTRUCTIONS: Outpatient psychiatric followup by myself, medical followup with Dr. Pavan Roman, her primary care physician. Time for discharge day management greater than 30 minutes. MAN Scooter BASHIR MD DR: CARRILLO/praful JOB#: [id number] / [id number]
== END 2018-03-28 16:33 | disposition home or self-care (01) | DRG 885 ==
LOC: ER 17:47 → GEROPSY 23:43
PROVIDERS: ADMIT Psychiatry & Neurology Psychiatry; ATTEND Psychiatry & Neurology Psychiatry
DX: F33.3 Major depressive disorder, recurrent, severe with psychotic symptoms (principal); R45.851 Suicidal ideations; K31.84 Gastroparesis; F40.01 Agoraphobia with panic disorder; F41.1 Generalized anxiety disorder; F42.9 Obsessive-compulsive disorder, unspecified; F63.9 Impulse disorder, unspecified; K21.9 Gastro-esophageal reflux disease without esophagitis; Z96.641 Presence of right artificial hip joint; Z85.3 Personal history of malignant neoplasm of breast; Z90.12 Acquired absence of left breast and nipple
CPT/HCPCS: 36415; 74018; 74176; 80053; 80061; 81001; 82306; 82607; 83036; 83540; 83550; 83615; 83690; 83735; 84436; 84443; 84480; 85025; 86593; 87086; 93005; J2212; J8597; Q9966; 99285-25

== ENCOUNTER 2018-05-09 13:32 | Inpatient (IN) | payer MEDICARE ==
[~2018-05-09] VITALS: Ht 154.9 cm; Wt 55.9 kg
[~2018-05-09 13:32] MED LIST changes: +DOCU100C28 PO; +FLUV50TA2 PO; +MAG355OR11 PO; +ONDA8TAB12 PO; +SENN-79 PO
--- NOTE | 2018-05-09 13:54 | EKG ---
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
[2018-05-09 13:55] LABS: BASO % 1 % (0-3); EOS % 1 % (0-3); HEMATOCRIT 37.6 % (36.0-47.0); HEMOGLOBIN 12.5 g/dL (12.0-15.5); LYMPH # 0.6 x10^3/uL (1.0-4.8); LYMPH % 17 % (24-48); MEAN CORPUSCULAR HEMOGLOBIN 33 pg (25-35); MEAN CORPUSCULAR HGB CONC 33 g/dL (31-37); MEAN CORPUSCULAR VOLUME 100 fL (79-100); MONO # 0.4 x10^3/uL (0.0-1.1); MONO % 12 % (0-9); NEUT # 2.2 x10^3uL (1.8-7.7); NEUT % 69 % (31-73); PLATELET COUNT 214 x10^3/uL (140-400); RED BLOOD COUNT 3.76 x10^6/uL (3.50-5.40); RED CELL DISTRIBUTION WIDTH 12.8 % (11.5-14.5); WHITE BLOOD COUNT 3.3 x10^3/uL (4.0-11.0)
[2018-05-09 14:07] LABS: ALBUMIN 3.8 g/dL (3.4-5.0); ALBUMIN/GLOBULIN RATIO 1.2 (1.0-1.7); CREATININE 0.8 mg/dL (0.6-1.0); GFR 70.5; POTASSIUM 3.9 mmol/L (3.5-5.1); TOTAL BILIRUBIN 0.5 mg/dL (0.2-1.0); TOTAL PROTEIN 6.9 g/dL (6.4-8.2)
[2018-05-09 14:26] LABS: BACTERIA,URINE MANY /HPF (0-FEW); BILIRUBIN,URINE NEG (NEG); CLARITY,URINE CLOUDY; COLOR,URINE YELLOW; GLUCOSE,URINE NEG (NEG); NITRITE,URINE POS (NEG); RBC,URINE RARE /HPF (0-2); SQUAMOUS EPITHELIAL CELL,UR OCC /LPF; UROBILINOGEN,URINE 0.2 mg/dL (0.2 mg/dL)
--- NOTE | 2018-05-09 14:41 | ED.ADGEN ---
Past History Past Medical History: Anxiety, Depression, GERD, Other Past Surgical History: Cancer Surgery, Other Alcohol Use: None Drug Use: None Adult General Chief Complaint Chief Complaint Slurred speech, memory difficulties HPI HPI Patient is a 72-year-old female presents with ongoing memory problems and slurring of speech. Symptoms been ongoing for the past ever weeks of recently worsened in the past couple days. Patient was last visited by his psychiatrist 5 days ago in the office. No medication changes were made at that time. Patient' s has since been in touch with his PCP and Dr. Peterson and was seen at [facility] ED regarding the same. Patient denies any recent illness, or new medical complaints. [] Review of Systems Review of Systems ROS as per HPI All other systems were reviewed and found to be within normal limits, except as documented in this note. Allergies Allergies Allergies Coded Allergies Type Severity Reaction Last Updated Verified No Known Drug Allergies 09/28/17 No Physical Exam Physical Exam Constitutional: Well developed, well nourished, no acute distress, non-toxic appearance. [] HENT: Normocephalic, atraumatic, bilateral external ears normal, oropharynx, dry mouth, mild slurring of speech.. [] Eyes: PERRLA, EOMI, conjunctiva normal. [] Neck: Normal range of motion, no tenderness, supple, no stridor. [] Cardiovascular:Heart rate regular rhythm, no murmur [] Lungs & Thorax: Bilateral breath sounds clear to auscultation. [] Abdomen: Bowel sounds normal. [] Skin: Warm, no rash. [] Back: No tenderness. [] Extremities: No tenderness,no edema. [] Neurologic: Alert and oriented X 2, normal motor function, normal sensory function, no focal deficits noted. [] Psychologic: Affect, flat. [] Current Patient Data Vital Signs Vital Signs Date Time Temp Pulse Resp B/P (MAP) Pulse Ox O2 Delivery O2 Flow Rate FiO2 05/09/18 13:41 98.2 94 18 96 Room Air Lab Results Laboratory Tests Test 05/09/18 13:45 05/09/18 14:04 White Blood Count 3.3 x10^3/uL (4.0-11.0) L Red Blood Count 3.76 x10^6/uL (3.50-5.40) Hemoglobin 12.5 g/dL (12.0-15.5) Hematocrit 37.6 % (36.0-47.0) Mean Corpuscular Volume 100 fL (79-100) Mean Corpuscular Hemoglobin 33 pg (25-35) Mean Corpuscular Hemoglobin Concent 33 g/dL (31-37) Red Cell Distribution Width 12.8 % (11.5-14.5) Platelet Count 214 x10^3/uL (140-400) Neutrophils (%) (Auto) 69 % (31-73) Lymphocytes (%) (Auto) 17 % (24-48) L Monocytes (%) (Auto) 12 % (0-9) H Eosinophils (%) (Auto) 1 % (0-3) Basophils (%) (Auto) 1 % (0-3) Neutrophils # (Auto) 2.2 x10^3uL (1.8-7.7) Lymphocytes # (Auto) 0.6 x10^3/uL (1.0-4.8) L Monocytes # (Auto) 0.4 x10^3/uL (0.0-1.1) Eosinophils # (Auto) 0.0 x10^3/uL (0.0-0.7) Basophils # (Auto) 0.0 x10^3/uL (0.0-0.2) Sodium Level 139 mmol/L (136-145) Potassium Level 3.9 mmol/L (3.5-5.1) Chloride Level 104 mmol/L (98-107) Carbon Dioxide Level 30 mmol/L (21-32) Anion Gap 5 (6-14) L Blood Urea Nitrogen 17 mg/dL (7-20) Creatinine 0.8 mg/dL (0.6-1.0) Estimated GFR (Cockcroft-Gault) 70.5 BUN/Creatinine Ratio 21 (6-20) H Glucose Level 110 mg/dL (70-99) H Calcium Level 9.0 mg/dL (8.5-10.1) Magnesium Level 2.1 mg/dL (1.8-2.4) Total Bilirubin 0.5 mg/dL (0.2-1.0) Aspartate Amino Transferase (AST) 27 U/L (15-37) Alanine Aminotransferase (ALT) 24 U/L (14-59) Alkaline Phosphatase 55 U/L (46-116) Total Protein 6.9 g/dL (6.4-8.2) Albumin 3.8 g/dL (3.4-5.0) Albumin/Globulin Ratio 1.2 (1.0-1.7) Urine Collection Type Unknown Urine Color Yellow Urine Clarity Cloudy Urine pH 6.0 Urine Specific [place] 1.010 Urine Protein Neg (NEG-TRACE) Urine Glucose (UA) Neg mg/dL (NEG) Urine Ketones (Stick) 40 mg/dL (NEG) Urine Blood Trace (NEG) Urine Nitrite Pos (NEG) Urine Bilirubin Neg (NEG) Urine Urobilinogen Dipstick 0.2 mg/dL (0.2 mg/dL) Urine Leukocyte Esterase Mod (NEG) Urine RBC Rare /HPF (0-2) Urine WBC 11-20 /HPF (0-4) Urine Squamous Epithelial Cells Occ /LPF Urine Bacteria Many /HPF (0-FEW) Urine Mucus Marked /LPF EKG EKG [EKG: Reviewed] Radiology/Procedures Radiology/Procedures [] Course & Med Decision Making Course & Med Decision Making Pertinent Labs and Imaging studies reviewed. (See chart for details) [Medical screening exam for psychiatric admission. Patient medically stable. First dose of antibiotic given for treatment of urinary tract infection.] Final Impression Final Impression [1. Medical screening examination for psychiatric admission] Dragon Disclaimer Dragon Disclaimer This electronic medical record was generated, in whole or in part, using a voice recognition dictation system. AURELIANO KAISER DO May 09, 2018 14:40
[2018-05-09] MEDS ORDERED: CEPHALEXIN 250 MG CAPSULE ONE (15:01)
[2018-05-09] MEDS: CEPHALEXIN 250 MG CAPSULE PO ONE ×2 (15:30→15:51)
--- NOTE | 2018-05-09 15:30 | NUR ---
Admission Note with Justification for Admission to [facility] Patient admitted to [facility] for protective oversight for emergency stabilization of acute psychiatric crisis. Pt admitted from: Home/[facility] Mode of arrival: POV to [facility] ER/EMS from ER Accompanied By: [facility] Staff/EMS staff Precipitating behaviors that initiated intake and admission: patient called Dr. Peterson 05/08 with report of increased anxiety and panic attacks. She had been to [facility] ER on 05/07 and said they advised her to seek psychiatric help. She is a patient of Dr. Peterson. She declined to come in 05/09 she is a self sign. Today she was brought to our ER by her family, they were concerned that she was very anxious, slurring her words and stumbling when ambulating. Patient reports intense anxiety today. Description of failure of out patient attempts at stabilization in previous setting list behavior and medication trials: Patient has been inpatient at [facility] 09/2017 and 02/[address]. Peterson is her psychiatrist and she sees him out patient. She had been to [facility] ER 05/07 and then came to [facility] today. She reports she has been taking her medications as prescribed. Behaviors and assessment findings upon admission: patient is shaking and appears very tense. Slow thought process, but able to make her needs known. She states that she has been this way for a few days. Patient is alert/oriented x4. Nurse reviewed the consent package with patient, patient signed herself into the unit. Vital signs obtained, brief head to toe physical performed. Patient does not use ambulatory aides and is up ad zane. Patient belongings inventoried, patient dinner tray ordered. Patient has specific dietary preferences and dietary consult placed. Thermostat adjusted for comfort as patient stated she was cold upon arrival. Patient provided medication list prepared by patients son. Plan: Admit for protective oversight for adjustment and stabilization of medications, behaviors and mood. Intense treatment regimen including groups, medication adjustments, therapy, consistent regimen for ADL's, self care, and sleep hygiene. Daily monitoring by Inpatient staff, Psychiatry, and Medical Physician.
--- NOTE | 2018-05-09 15:52 | NUR ---
Keflex 500mg one time dose given in ER per Freddie.
[2018-05-09 16:00] VITALS: BP 113/70
[2018-05-09] MEDS ORDERED: MAGNESIUM HYDROXIDE 2,400 MG/30 ML ORAL.SUSP. PO PRN (16:15)
[2018-05-09] MEDS ORDERED: METHYL SALICYLATE/MENTHOL TOPICAL OINTMENT 29GM TUBE. TP PRN (16:15)
[2018-05-09] MEDS ORDERED: METO10TA81 PO (17:19)
[2018-05-09] MEDS ORDERED: CHOL500021 PO (17:19)
[2018-05-09] MEDS ORDERED: PANT40TA5 PO (17:19)
[2018-05-09] MEDS: METOCLOPRAMIDE 5 MG TABLET PO SCH (20:03)
[2018-05-09] MEDS: MIRTAZAPINE 15 MG TABLET PO SCH (20:03)
[2018-05-09] MEDS: oxyCODONE IR 5 MG TABLET PO PRN (20:04)
[2018-05-09] MEDS: GABAPENTIN 100 MG CAPSULE. PO SCH (20:04)
--- NOTE | 2018-05-09 20:50 | PDOC ---
Exam Note: Edwin Note: Please also refer to the separate dictated note~for this date of service dictated separately.~Patient seen individually. Discussed the patient with Nursing staff reviewed the chart.~Reviewed interim history and current functioning. Reviewed vital signs,~Labs/ Radiology~and current medications noted below. Continue current treatment with the changes noted in the dictated addendum note Assessment: Vital Signs: Vital Signs Date Time Temp Pulse Resp B/P (MAP) Pulse Ox O2 Delivery O2 Flow Rate FiO2 05/09/18 20:04 20 96 Room Air 05/09/18 16:00 97.6 92 113/70 (84) Labs: Laboratory Tests Test 05/09/18 13:45 05/09/18 14:04 White Blood Count 3.3 x10^3/uL (4.0-11.0) L Red Blood Count 3.76 x10^6/uL (3.50-5.40) Hemoglobin 12.5 g/dL (12.0-15.5) Hematocrit 37.6 % (36.0-47.0) Mean Corpuscular Volume 100 fL (79-100) Mean Corpuscular Hemoglobin 33 pg (25-35) Mean Corpuscular Hemoglobin Concent 33 g/dL (31-37) Red Cell Distribution Width 12.8 % (11.5-14.5) Platelet Count 214 x10^3/uL (140-400) Neutrophils (%) (Auto) 69 % (31-73) Lymphocytes (%) (Auto) 17 % (24-48) L Monocytes (%) (Auto) 12 % (0-9) H Eosinophils (%) (Auto) 1 % (0-3) Basophils (%) (Auto) 1 % (0-3) Neutrophils # (Auto) 2.2 x10^3uL (1.8-7.7) Lymphocytes # (Auto) 0.6 x10^3/uL (1.0-4.8) L Monocytes # (Auto) 0.4 x10^3/uL (0.0-1.1) Eosinophils # (Auto) 0.0 x10^3/uL (0.0-0.7) Basophils # (Auto) 0.0 x10^3/uL (0.0-0.2) Sodium Level 139 mmol/L (136-145) Potassium Level 3.9 mmol/L (3.5-5.1) Chloride Level 104 mmol/L (98-107) Carbon Dioxide Level 30 mmol/L (21-32) Anion Gap 5 (6-14) L Blood Urea Nitrogen 17 mg/dL (7-20) Creatinine 0.8 mg/dL (0.6-1.0) Estimated GFR (Cockcroft-Gault) 70.5 BUN/Creatinine Ratio 21 (6-20) H Glucose Level 110 mg/dL (70-99) H Calcium Level 9.0 mg/dL (8.5-10.1) Magnesium Level 2.1 mg/dL (1.8-2.4) Total Bilirubin 0.5 mg/dL (0.2-1.0) Aspartate Amino Transferase (AST) 27 U/L (15-37) Alanine Aminotransferase (ALT) 24 U/L (14-59) Alkaline Phosphatase 55 U/L (46-116) Total Protein 6.9 g/dL (6.4-8.2) Albumin 3.8 g/dL (3.4-5.0) Albumin/Globulin Ratio 1.2 (1.0-1.7) Urine Collection Type Unknown Urine Color Yellow Urine Clarity Cloudy Urine pH 6.0 Urine Specific [place] 1.010 Urine Protein Neg (NEG-TRACE) Urine Glucose (UA) Neg mg/dL (NEG) Urine Ketones (Stick) 40 mg/dL (NEG) Urine Blood Trace (NEG) Urine Nitrite Pos (NEG) Urine Bilirubin Neg (NEG) Urine Urobilinogen Dipstick 0.2 mg/dL (0.2 mg/dL) Urine Leukocyte Esterase Mod (NEG) Urine RBC Rare /HPF (0-2) Urine WBC 11-20 /HPF (0-4) Urine Squamous Epithelial Cells Occ /LPF Urine Bacteria Many /HPF (0-FEW) Urine Mucus Marked /LPF Current Medications: Meds: Current Medications Cephalexin HCl (Keflex) 500 mg 1X ONCE PO Last administered on 05/09/18at 15:30 ; Start 05/09/18 at 15:30; Stop 05/09/18 at 15:36; Status DC Acetaminophen (Tylenol) 650 mg PRN Q6HRS PRN PO PAIN / TEMP; Start 05/09/18 at 16:15 Multi-Ingredient Ointment (Analgesic [place]) 1 declan PRN QID PRN TP MUSCLE PAIN; Start 05/09/18 at 16:15 Al Hydroxide/Mg Hydroxide (Mylanta Plus Xs) 15 ml PRN AFTMEALHC PRN PO DYSPEPSIA; Start 05/09/18 at 16:15 Magnesium Hydroxide (Milk Of Magnesia) 2,400 mg PRN QHS PRN PO CONSTIPATION; Start 05/09/18 at 16:15 Alprazolam (Xanax) 0.5 mg PRN Q4HRS PRN PO ANXIETY / AGITATION; Start 05/09/18 at 17:15 Fluvoxamine Maleate (Luvox) 100 mg DAILY PO ; Start 05/10/18 at 09:00 Metoclopramide HCl (Reglan) 5 mg HS PO Last administered on 05/09/18at 20:03; Start 05/09/18 at 21:00 Mirtazapine (Remeron) 15 mg QHS PO Last administered on 05/09/18at 20:03; Start 05/09/18 at 21:00 Oxycodone HCl (Roxicodone) 5 mg PRN Q12HR PRN PO severe pain Last administered on 05/09/18at 20:04; Start 05/09/18 at 17:15 Polyethylene Glycol (miraLAX) 17 gm DAILY PO ; Start 05/10/18 at 09:00 Quetiapine Fumarate (SEROquel) 37.5 mg TIDWMEALS PO ; Start 05/10/18 at 08:00 Sucralfate (Carafate) 1 gm BID@0700,1600 PO ; Start 05/10/18 at 07:00 Gabapentin (Neurontin) 100 mg TID PO Last administered on 05/09/18at 20:04; Start 05/09/18 at 21:00 Active Scripts Active Reported D3-50 (Cholecalciferol (Vitamin D3)) 50,000 Unit Capsule 50,000 Unit PO WEEKLY Reglan (Metoclopramide Hcl) 10 Mg Tablet 5 Mg PO TIDAC Pantoprazole Sodium 40 Mg Tablet.dr 40 Mg PO DAILY Seroquel (Quetiapine Fumarate) 25 Mg Tablet 37.5 Mg PO TIDWMEALS Oxycodone Hcl 5 Mg Capsule 5 Mg PO PRN Q12HR PRN Fluvoxamine Maleate 50 Mg Tablet 100 Mg PO DAILY Miralax (Polyethylene Glycol 3350) 17 Gm Powd.pack 17 Gm PO DAILY Klor-Con M20 (Potassium Chloride) 20 Meq Tab.er.prt 20 Meq PO DAILY Sucralfate 1 Gm Tablet 1 Gm PO BID@0700,1600 Mirtazapine 15 Mg Tablet 15 Mg PO QHS Reglan (Metoclopramide Hcl) 10 Mg Tablet 5 Mg PO HS Alprazolam 0.5 Mg Tablet 0.5 Mg PO PRN Q4HRS PRN I have reviewed the current psychotropics carefully including drug interactions. Risk benefit ratio favors no change other than as noted in my dictated progress note. 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
--- NOTE | 2018-05-10 00:39 | NUR ---
Behavior Intervention Response and Plan: BIRP Note: Behavior: Assumed Care of patient, patient located in Hallway at shift change. Patient exhibited the following behavior Interactive, Disorganized, Compliant. Brief assessment on rounds of vital signs, medication needs, lab studies, and pain. Treatment plan problems . Intervention: Patient assessed and the following interventions initiated safety checks 15 Minute Checks Head to toe Assessment , Cognitive Assessment , Medications. Response: After interactions and interventions patient responded in the following manner, Cooperative , Withdrawn ,Drowsy. Continue to assess behaviors and condition will continue to monitor throughout the shift as needed. Patient educated on ADL's, and hand hygiene. 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 Continue to assess patient for changes in above assessment. Monitor for medication needs, pain, and safety concerns. Hourly rounding performed to ensure safe environment.
[2018-05-10 02:09] LABS: HEMOGLOBIN A1C 4.9 % (4.8-5.6)
[2018-05-10 04:12] LABS: THYROXINE 9.4 ug/dL (4.5-12.0)
[2018-05-10 06:12] VITALS: BP 125/72
[2018-05-10] MEDS: ALPRAZolam 0.5 MG TABLET PO PRN ×4 (06:25→23:08)
[2018-05-10] MEDS: GABAPENTIN 100 MG CAPSULE. PO SCH ×3 (08:02→19:25)
[2018-05-10] MEDS: POLYETHYLENE GLYCOL 3350 17 GM PACKET. PO SCH (08:05)
[2018-05-10] MEDS: QUEtiapine 25 MG TABLET. PO SCH ×3 (08:05→16:17)
[2018-05-10] MEDS: SUCRALFATE 1 GM TABLET. PO SCH ×2 (08:05→16:17)
--- NOTE | 2018-05-10 09:22 | NUR ---
Behavior Intervention Response and Plan: BIRP Note: Behavior: Assumed Care of patient, patient located in Patient Room at shift change. Patient exhibited the following behavior Calm, Compliant, Able to Focus on Task. Brief assessment on rounds of vital signs, medication needs, lab studies, and pain. Treatment plan problems 1-2. Intervention: Patient assessed and the following interventions initiated safety checks 15 Minute Checks Cognitive Assessment , Head to toe Assessment , Medications. Response: After interactions and interventions patient responded in the following manner, Calm , Appropriate ,Compliant. Continue to assess behaviors and condition will continue to monitor throughout the shift as needed. Patient educated on ADL's, and hand hygiene. 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 Continue to assess patient for changes in above assessment. Monitor for medication needs, pain, and safety concerns. Hourly rounding performed to ensure safe environment.
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
[2018-05-10 16:28] VITALS: BP 106/58
--- NOTE | 2018-05-10 19:20 | NUR ---
Behavior Intervention Response and Plan: BIRP Note: Behavior: Assumed Care of patient, patient located in Patient Room at shift change. Patient exhibited the following behavior Withdrawn, Sleeping, Cooperative. Brief assessment on rounds of vital signs, medication needs, lab studies, and pain. Treatment plan problems . Intervention: Patient assessed and the following interventions initiated safety checks 15 Minute Checks Cognitive Assessment , Head to toe Assessment , Oral Hydration. Response: After interactions and interventions patient responded in the following manner, Withdrawn , Cooperative ,Sleeping. Continue to assess behaviors and condition will continue to monitor throughout the shift as needed. Patient educated on ADL's, and hand hygiene. Plan: Continue to monitor Master Treatment Plan for patient's progress toward short term goals of Decreased Anxiety, Improved Mood, mcc goals to return to previous living setting vs placement. Continue to assess patient for changes in above assessment. Monitor for medication needs, pain, and safety concerns. Hourly rounding performed to ensure safe environment.
[2018-05-10] MEDS: METOCLOPRAMIDE 5 MG TABLET PO SCH (19:26)
[2018-05-10] MEDS: MIRTAZAPINE 15 MG TABLET PO SCH (19:26)
--- NOTE | 2018-05-10 20:48 | PDOC ---
Exam Note: Edwin Note: Please also refer to the separate dictated note~for this date of service dictated separately.~Patient seen individually. Discussed the patient with Nursing staff reviewed the chart.~Reviewed interim history and current functioning. Reviewed vital signs,~Labs/ Radiology~and current medications noted below. Continue current treatment with the changes noted in the dictated addendum note Assessment: Vital Signs: Vital Signs Date Time Temp Pulse Resp B/P (MAP) Pulse Ox O2 Delivery O2 Flow Rate FiO2 05/10/18 16:28 98.0 117 19 106/58 (74) 96 05/09/18 21:04 Room Air I&O Intake and Output 05/10/18 07:00 Intake Total 360 ml Balance 360 ml Intake Oral 360 ml Current Medications: Meds: Current Medications Cephalexin HCl (Keflex) 500 mg 1X ONCE PO Last administered on 05/09/18at 15:30 ; Start 05/09/18 at 15:30; Stop 05/09/18 at 15:36; Status DC Acetaminophen (Tylenol) 650 mg PRN Q6HRS PRN PO PAIN / TEMP; Start 05/09/18 at 16:15 Multi-Ingredient Ointment (Analgesic [place]) 1 declan PRN QID PRN TP MUSCLE PAIN; Start 05/09/18 at 16:15 Al Hydroxide/Mg Hydroxide (Mylanta Plus Xs) 15 ml PRN AFTMEALHC PRN PO DYSPEPSIA; Start 05/09/18 at 16:15 Magnesium Hydroxide (Milk Of Magnesia) 2,400 mg PRN QHS PRN PO CONSTIPATION; Start 05/09/18 at 16:15 Alprazolam (Xanax) 0.5 mg PRN Q4HRS PRN PO ANXIETY / AGITATION Last administered on 05/10/18at 16:50; Start 05/09/18 at 17:15 Fluvoxamine Maleate (Luvox) 100 mg DAILY PO Last administered on 05/10/18at 08: 05; Start 05/10/18 at 09:00 Metoclopramide HCl (Reglan) 5 mg HS PO Last administered on 05/10/18at 19:26; Start 05/09/18 at 21:00 Mirtazapine (Remeron) 15 mg QHS PO Last administered on 05/10/18at 19:26; Start 05/09/18 at 21:00 Oxycodone HCl (Roxicodone) 5 mg PRN Q12HR PRN PO severe pain Last administered on 05/09/18at 20:04; Start 05/09/18 at 17:15 Polyethylene Glycol (miraLAX) 17 gm DAILY PO Last administered on 05/10/18at 08: 05; Start 05/10/18 at 09:00 Quetiapine Fumarate (SEROquel) 37.5 mg TIDWMEALS PO Last administered on at 16:17; Start 05/10/18 at 08:00 Sucralfate (Carafate) 1 gm BID@0700,1600 PO Last administered on 05/10/18at 16: 17; Start 05/10/18 at 07:00 Gabapentin (Neurontin) 100 mg TID PO Last administered on 05/10/18at 19:25; Start 05/09/18 at 21:00 Active Scripts Active Reported D3-50 (Cholecalciferol (Vitamin D3)) 50,000 Unit Capsule 50,000 Unit PO WEEKLY Reglan (Metoclopramide Hcl) 10 Mg Tablet 5 Mg PO TIDAC Pantoprazole Sodium 40 Mg Tablet.dr 40 Mg PO DAILY Seroquel (Quetiapine Fumarate) 25 Mg Tablet 37.5 Mg PO TIDWMEALS Oxycodone Hcl 5 Mg Capsule 5 Mg PO PRN Q12HR PRN Fluvoxamine Maleate 50 Mg Tablet 100 Mg PO DAILY Miralax (Polyethylene Glycol 3350) 17 Gm Powd.pack 17 Gm PO DAILY Klor-Con M20 (Potassium Chloride) 20 Meq Tab.er.prt 20 Meq PO DAILY Sucralfate 1 Gm Tablet 1 Gm PO BID@0700,1600 Mirtazapine 15 Mg Tablet 15 Mg PO QHS Reglan (Metoclopramide Hcl) 10 Mg Tablet 5 Mg PO HS Alprazolam 0.5 Mg Tablet 0.5 Mg PO PRN Q4HRS PRN I have reviewed the current psychotropics carefully including drug interactions. Risk benefit ratio favors no change other than as noted in my dictated progress note. Diagnosis: Problems: (1) Anxiety disorder (2) Impulse control disorder (3) Major depressive disorder, recurrent episode (4) Panic disorder with agoraphobia and severe panic attacks (5) Obsessive compulsive disorder MELISSA BASHIR MD May 10, 2018 20:48
--- NOTE | 2018-05-10 21:32 | HP ---
ADMIT DATE: 05/09/2018 PSYCHIATRIC ADMISSION HISTORY/EVALUATION This is a late entry, date of service 09/09/2018 covers elements not covered in my initial note. SUBJECTIVE: I met with the patient in the evening, had previously returned a call to my answering service from the patient's son and prior to that from the patient as some emergencies on account of her worsening anxiety, mood lability, failure of outpatient treatment and she is presenting with slurred speech, possibly due to overusing Xanax. She had failed outpatient psychiatric interventions, presented to the Emergency Room at [facility], then readmitted for inpatient psychiatric stabilization. IDENTIFYING DATA: The patient is a 72-year-old female referred by Dr. Pavan Roman, her primary care physician and at the initiation of her son and her significant other, Sumit, on account of worsening anxiety, unsteady gait, slurred speech, possibly due to overusing Xanax. According to the family, she was "not acting like herself." She was having severe panic attacks, marked obsessive thinking. CHIEF COMPLAINT: "Nothing is working." HISTORY OF PRESENT ILLNESS: The patient is being increasingly depressed, anxious, very obsessive and having severe panic attacks. She has felt hopeless, worthless consequent to the anxiety. She had gone to the Emergency Room reportedly at [facility] a few days back as part of this presentation and we attempted other interventions as an outpatient and she had failed all of this. No active suicidal or homicidal ideation. She has had some mood swings, but no clear history of bipolar disorder. She has had some short term memory deficits, part of which has been due to her overusing the benzodiazepines. PAST PSYCHIATRIC HISTORY: As noted above. She has had several psychiatric hospitalizations in the past with similar symptoms. PAST MEDICAL HISTORY: The patient was found to have a UTI in the ER, treated on Keflex. Does have a history of GERD, gastroparesis. CODE STATUS: Full code. DRUG ALLERGIES: Negative. ACCU-CHEKS: None. DIET: Regular. Takes her medications whole. Ambulates ad zaen. CURRENT PSYCHOTROPICS: Luvox 100 mg at bedtime, Seroquel 37.5 mg 3 times a day, Remeron 15 mg at bedtime, Xanax 0.5 mg q. 4 hours p.r.n. anxiety. FAMILY HISTORY: Noncontributory. SOCIAL HISTORY: No alcohol, drug abuse, physical, sexual or elder abuse history is noted. Not known to be a perpetrator. REACTION TO HOSPITALIZATION: The patient accepting of it. ASSETS: Supportive family, reasonably cognitively intact. MENTAL STATUS EXAM: The patient was seen individually evening of 05/09/2018. She is oriented to herself and situation. Speech is somewhat slurred, difficult to understand at times, met with her shortly after she was admitted. Abstraction fair, computation impaired, language function intact, attention span short. Mood and affect, extremely anxious, depressed, obsessive and labile. Intellect average. Insight fair. Judgment intact to standard questioning. IMPRESSION: Major depressive disorder, recurrent; severe obsessive compulsive disorder, anxiety disorder, unspecified; panic disorder, cognitive disorder, unspecified; urinary tract infection. Rest as above. TREATMENT PLAN: Admit to the geropsychiatry unit at [facility]. I will see the patient daily individually from a psychiatric standpoint. Medical followup per Dr. Duncan/Dr. Randolph continue. Current psychotropics, make adjustments post baseline assessment. Treat the UTI. Estimated length of stay 10-12 days. Disposition will be either back home or to an assisted living where she can be around other people, since at home she stays by herself most of the day while Sumit works. MELISSA BASHIR MD DR: CARRILLO/praful JOB#: [id number] / [id number]
--- NOTE | 2018-05-10 23:33 | CONS ---
DATE OF CONSULTATION: REASON FOR CONSULTATION: Consult for medical management. HISTORY OF PRESENT ILLNESS: The patient is a 72-year-old female patient who currently resides at home and who was admitted on account of increasing anxiety and panic attack. She apparently mumbling speech, not acting like herself, severe panic attacks, shaky. She apparently was seen at [facility] on 05/07/[address] Peterson was contacted and was seen at an outpatient clinic and eventually was admitted for inpatient psychiatric stabilization. PAST MEDICAL HISTORY: Her past medical history is significant for chronic constipation, gastroesophageal reflux disease, and left breast cancer. She has gastroparesis, anxiety, and depression. PAST SURGICAL HISTORY: Past surgical history is significant for right total hip arthroplasty and she has also left breast cancer status post lumpectomy. FAMILY HISTORY: Unremarkable. SOCIAL HISTORY: She [place] other [place]. She has a son and 2 grandchildren. She does not smoke, drink alcohol, or recreational drugs. She is retired. ALLERGIES: She has no known drug allergies. MEDICATIONS: She is currently on following medications: She is on oxycodone 5 mg q. 12 hourly, fluvoxamine maleate 100 mg daily, mirtazapine 50 mg at bedtime, quetiapine fumarate 37.5 mg 3 times a day, alprazolam 0.5 mg every 4 hours, potassium chloride 20 mEq daily, polyethylene glycol 17 grams daily, sucralfate 1 gram twice a day, Protonix 40 mg once a day, metoclopramide 10 mg at bedtime, metoclopramide 5 mg before meals, cholecalciferol 50,000 international units once a week. REVIEW OF SYSTEMS: As per history of present illness. PHYSICAL EXAMINATION GENERAL: When I examined her, she was resting slightly propped up in bed, in no apparent respiratory distress, pale, cachectic, no jaundice, cyanosis, or thyromegaly. No jugular venous distension. No lower limb edema. VITAL SIGNS: Her heart rate was 89, blood pressure was 125/72, temperature was 97.4, respiratory rate was 16, and oxygen saturation was 98%. HEENT: Examination of the head, eyes, ear, nose and throat showed normocephalic, atraumatic. NECK: Supple. HEART: Showed normal first and second sounds. No gallop, rub or murmur. CHEST: Clear to auscultation. No crepitation or rhonchi. ABDOMEN: Distended, soft, nontender. No guarding or rigidity. No organomegaly. NEUROLOGIC: She is awake, alert, responding appropriately. All cranial nerves are intact. EXTREMITIES: She moves extremities without difficulty. She ambulates without assistance or assistive devices. LABORATORY AND DIAGNOSTIC DATA: Her lab work showed a white cell count 3300, hemoglobin 12.5, hematocrit 37.6, MCV 100, and the platelet count 214,000. Her chemistry showed a serum sodium 139, potassium 3.9, chloride 104, bicarbonate 30, anion gap of 5, BUN 17, creatinine 0.8, estimated GFR was 70 mL per minute. Her glucose was 110, calcium was 9, magnesium was 2.1. Total bilirubin, AST, ALT, alkaline phosphatase was normal. Her TSH was 1.134. Hemoglobin A1c was 4.9. Serum iron was 37, TIBC was 261, and percent saturation was 14%. Her serum triglycerides were ____, total cholesterol 185, LDL was 122, VLDL was 8, and HDL cholesterol of 55, ratio was 3. Her vitamin B12 was 769 picogram, 25-hydroxy vitamin D was 53, total T4 was 9.4, and total T3 was 98. Urinalysis was essentially unremarkable, and Treponema pallidum antibodies were nonreactive. Her KUB showed that there are nondistended air filled loops of bowel throughout the abdomen. There is no transition point to suggest obstruction. There is right hip arthroplasty. There is lumbar scoliosis and a CT scan of the abdomen and pelvis showed that there is increased stool throughout the colon. Multiple nonspecific hepatic hypodensities are described above. The appearance is suggestive of but no diagnostic hepatic steatosis. ASSESSMENT AND PLAN: In summary, this is a 72-year-old female patient, who yet again came with basically being extremely anxious and severe panic attacks, shaky, mumbling speech, not acting herself on the background of severe anxiety. Medically, she seemed to be generally stable. All her vital signs are normal. Lab works are also within acceptable range. She is known to have chronic constipation, gastroesophageal reflux disease, gastroparesis. Thank you, Dr. Peterson, for allowing me to participate in the care of this patient. RAFAEL GORDILLO MD DR: DEBBIE/praful JOB#: [id number] / [id number]
[2018-05-11 05:59] VITALS: BP 111/52
[2018-05-11] MEDS: SUCRALFATE 1 GM TABLET. PO SCH ×2 (06:19→16:25)
[2018-05-11] MEDS: GABAPENTIN 100 MG CAPSULE. PO SCH ×3 (08:43→19:33)
[2018-05-11] MEDS: POLYETHYLENE GLYCOL 3350 17 GM PACKET. PO SCH (08:43)
[2018-05-11] MEDS: QUEtiapine 25 MG TABLET. PO SCH ×3 (08:43→16:26)
--- NOTE | 2018-05-11 09:30 | NUR ---
Activity Therapy Assessment Completed based on observation and interview. Pt. was agreeable and pleasant to speak with but stated she was tired this morning. Pt. was able to answer all questions asked by the therapist fully and with detail. Pt. stated that she lives with her significant other, Sumit, and that they have been together for twenty years. She was previously and has a son and two grand children from that marriage that live in [place]. Pt. stated that her reason for voluntary admit is that she is 'lonely and wants to make sure her meds are ok'. She explained that Sumit works long hours, leaves early in the morning, and comes home late at night. According to treatment team notes, Pt. has been a patient of Dr. Peetrson for approximately 20 years and has had two previous admits to the unit in the past (03/19/2018 & 09/28/2017). Pt. stated that she loves to go dancing but 'we don't do that anymore since Sumit has a bad foot'. She also stated she used to go [place] riding with Sumit as well but that has also stopped. Pt. expressed that she loves to spend time with her family and wishes she could see them more often than she does. When asked about how to combat stress, she stated 'i find a tv show usually. The TV keeps me company'. Pt. is fully ambulatory and wears glasses. Pt. seems to be depressed and having difficulty finding ways to be engaged while her partner is at work. Initial goal: Pt. will participate in all activities focused on leisure education.
[2018-05-11] MEDS: ALPRAZolam 0.5 MG TABLET PO PRN ×3 (10:24→21:11)
--- NOTE | 2018-05-11 10:30 | NUR ---
Patient came to nurses station requesting PRN anti= Addendum: 05/11/18 at 1046 by FRANKIE ESCOBAR RN anxiety medication. Maintenance is working on a door in the hallway and it is quite loud at this time. Gave patient PRN xanax 0.5mg per order for anxiety and will continue to monitor.
--- NOTE | 2018-05-11 10:56 | NUR ---
Patient pleasant and calm, but is noted to have depressed affect. Alert and oriented x4. Patient states her stomach "feels ok" today. She became anxious and had PRN xanax at 1030, there was construction (workers banging on the door near the day room) on the unit. Patient has been in day room most of the morning, made a phone call and been down to breakfast.
--- NOTE | 2018-05-11 15:42 | NUR ---
Patient stated she is anxious, requests PRN xanax. Talked to patient in hallway, it is generalized anxiety, she states she has it often, not about anything specific. PRN xanax 0.5mg given per order for anxiety. Will continue to monitor.
[2018-05-11 16:38] VITALS: BP 110/76
--- NOTE | 2018-05-11 19:30 | NUR ---
Behavior Intervention Response and Plan: BIRP Note: Behavior: Assumed Care of patient, patient located in Day Room at shift change. Patient exhibited the following behavior Social, Compliant, Anxious. Brief assessment on rounds of vital signs, medication needs, lab studies, and pain. Treatment plan problems . Intervention: Patient assessed and the following interventions initiated safety checks 15 Minute Checks Cognitive Assessment , Head to toe Assessment , Medications. Response: After interactions and interventions patient responded in the following manner, Social , Compliant ,Anxious. Continue to assess behaviors and condition will continue to monitor throughout the shift as needed. Patient educated on ADL's, and hand hygiene. Plan: Continue to monitor Master Treatment Plan for patient's progress toward short term goals of Decreased Anxiety, Improved Mood, terminal make up operator goals to return to previous living setting vs placement. Continue to assess patient for changes in above assessment. Monitor for medication needs, pain, and safety concerns. Hourly rounding performed to ensure safe environment.
[2018-05-11] MEDS: METOCLOPRAMIDE 5 MG TABLET PO SCH (19:33)
[2018-05-11] MEDS: MIRTAZAPINE 15 MG TABLET PO SCH (19:33)
--- NOTE | 2018-05-11 21:54 | NUR ---
Pt came to nursing station requesting her Xanax. Talked with pt, pt reports generalized anxiety. PRN xanax given as ordered.
--- NOTE | 2018-05-11 22:00 | PN ---
DATE: 05/10/2018 PSYCHIATRIC PROGRESS NOTE This late entry 05/10/2018 covers elements not covered in my initial note. SUBJECTIVE: Met with the patient in the evening, staffed at a treatment team meeting with the entire team in the morning. Reviewed her history, psychosocial circumstances at length where she stays at home most of the day by herself[place] social interaction and plenty of time to ruminate and obsess about somatic symptoms, which worsened her anxiety. We discussed getting into a day-care setting for interactions psychosocially and staff will explore this. REVIEW OF SYSTEMS: Still has somatic symptoms, GI symptoms. No CV, , pulmonary, eye system symptoms on review. MENTAL STATUS EXAM: Reasonably oriented. Speech is coherent, at times rapid, abstraction fair, computation impaired, language function intact, attention span is short. Mood and affect remain somewhat anxious, labile, somatically preoccupied, obsessive. LABORATORY DATA: Reviewed. IMPRESSION: Major depressive disorder, recurrent, in partial remission; anxiety disorder, unspecified; obsessive compulsive disorder, chronic pain symptoms. PLAN: The patient has been started on Neurontin 100 mg 3 times a day. Maintain Luvox 100 mg a day, Seroquel 37.5 mg t.i.d., Remeron 15 at bedtime, Xanax p.r.n. Adjust further as clinically indicated. MAN Scooter BASHIR MD DR: CARRILLO/praful JOB#: [id number] / [id number]
--- NOTE | 2018-05-11 23:02 | PDOC ---
Exam Note: Edwin Note: Please also refer to the separate dictated note~for this date of service dictated separately.~Patient seen individually. Discussed the patient with Nursing staff reviewed the chart.~Reviewed interim history and current functioning. Reviewed vital signs,~Labs/ Radiology~and current medications noted below. Continue current treatment with the changes noted in the dictated addendum note Assessment: Vital Signs: Vital Signs Date Time Temp Pulse Resp B/P (MAP) Pulse Ox O2 Delivery O2 Flow Rate FiO2 05/11/18 16:38 98.4 91 16 110/76 (87) 96 05/09/18 21:04 Room Air I&O Intake and Output 05/11/18 07:00 Intake Total 600 ml Balance 600 ml Intake Oral 600 ml Current Medications: Meds: Current Medications Cephalexin HCl (Keflex) 500 mg 1X ONCE PO Last administered on 05/09/18at 15:30 ; Start 05/09/18 at 15:30; Stop 05/09/18 at 15:36; Status DC Acetaminophen (Tylenol) 650 mg PRN Q6HRS PRN PO PAIN / TEMP; Start 05/09/18 at 16:15 Multi-Ingredient Ointment (Analgesic [place]) 1 declan PRN QID PRN TP MUSCLE PAIN; Start 05/09/18 at 16:15 Al Hydroxide/Mg Hydroxide (Mylanta Plus Xs) 15 ml PRN AFTMEALHC PRN PO DYSPEPSIA; Start 05/09/18 at 16:15 Magnesium Hydroxide (Milk Of Magnesia) 2,400 mg PRN QHS PRN PO CONSTIPATION; Start 05/09/18 at 16:15 Alprazolam (Xanax) 0.5 mg PRN Q4HRS PRN PO ANXIETY / AGITATION Last administered on 05/11/18at 21:11; Start 05/09/18 at 17:15 Fluvoxamine Maleate (Luvox) 100 mg DAILY PO Last administered on 05/11/18at 08: 43; Start 05/10/18 at 09:00 Metoclopramide HCl (Reglan) 5 mg HS PO Last administered on 05/11/18at 19:33; Start 05/09/18 at 21:00 Mirtazapine (Remeron) 15 mg QHS PO Last administered on 05/11/18at 19:33; Start 05/09/18 at 21:00 Oxycodone HCl (Roxicodone) 5 mg PRN Q12HR PRN PO severe pain Last administered on 05/09/18 20:04; Start 05/09/18 at 17:15 Polyethylene Glycol (miraLAX) 17 gm DAILY PO Last administered on 05/11/18at 08: 43; Start 05/10/18 at 09:00 Quetiapine Fumarate (SEROquel) 37.5 mg TIDWMEALS PO Last administered on 16:26; Start 05/10/18 at 08:00 Sucralfate (Carafate) 1 gm BID@0700,1600 PO Last administered on 05/11/18 16: 25; Start 05/10/18 at 07:00 Gabapentin (Neurontin) 100 mg TID PO Last administered on 05/11/18 19:33; Start 05/09/18 at 21:00 Active Scripts Active Reported D3-50 (Cholecalciferol (Vitamin D3)) 50,000 Unit Capsule 50,000 Unit PO WEEKLY Reglan (Metoclopramide Hcl) 10 Mg Tablet 5 Mg PO TIDAC Pantoprazole Sodium 40 Mg Tablet.dr 40 Mg PO DAILY Seroquel (Quetiapine Fumarate) 25 Mg Tablet 37.5 Mg PO TIDWMEALS Oxycodone Hcl 5 Mg Capsule 5 Mg PO PRN Q12HR PRN Fluvoxamine Maleate 50 Mg Tablet 100 Mg PO DAILY Miralax (Polyethylene Glycol 3350) 17 Gm Powd.pack 17 Gm PO DAILY Klor-Con M20 (Potassium Chloride) 20 Meq Tab.er.prt 20 Meq PO DAILY Sucralfate 1 Gm Tablet 1 Gm PO BID@0700,1600 Mirtazapine 15 Mg Tablet 15 Mg PO QHS Reglan (Metoclopramide Hcl) 10 Mg Tablet 5 Mg PO HS Alprazolam 0.5 Mg Tablet 0.5 Mg PO PRN Q4HRS PRN I have reviewed the current psychotropics carefully including drug interactions. Risk benefit ratio favors no change other than as noted in my dictated progress note. Diagnosis: Problems: (1) Anxiety disorder (2) Impulse control disorder (3) Major depressive disorder, recurrent episode (4) Panic disorder with agoraphobia and severe panic attacks (5) Obsessive compulsive disorder MELISSA BASHIR MD May 11, 2018 23:02
[2018-05-12 05:44] VITALS: BP 96/60
[2018-05-12] MEDS: SUCRALFATE 1 GM TABLET. PO SCH ×2 (06:19→16:53)
[2018-05-12] MEDS: QUEtiapine 25 MG TABLET. PO SCH ×3 (07:37→16:53)
[2018-05-12] MEDS: POLYETHYLENE GLYCOL 3350 17 GM PACKET. PO SCH (07:37)
[2018-05-12] MEDS: GABAPENTIN 100 MG CAPSULE. PO SCH ×3 (07:37→19:49)
[2018-05-12] MEDS: MAG HYDROX/AL HYDROX/SIMETH 30 ML ORAL.SUSP PO PRN (07:38)
[2018-05-12] MEDS: ALPRAZolam 0.5 MG TABLET PO PRN ×3 (07:38→21:40)
--- NOTE | 2018-05-12 09:38 | NUR ---
Behavior Intervention Response and Plan: BIRP Note: Behavior: Assumed Care of patient, patient located in Patient Room at shift change. Patient exhibited the following behavior Attention Seeking, Medication Seeking, Withdrawn. Brief assessment on rounds of vital signs, medication needs, lab studies, and pain. Treatment plan problems . Intervention: Patient assessed and the following interventions initiated safety checks 15 Minute Checks Cognitive Assessment , Head to toe Assessment , Medications. Response: After interactions and interventions patient responded in the following manner, Compliant , Anxious ,Withdrawn. Continue to assess behaviors and condition will continue to monitor throughout the shift as needed. Patient educated on ADL's, and hand hygiene. Plan: Continue to monitor Master Treatment Plan for patient's progress toward short term goals of Decreased Anxiety, Improved Mood, prison goals to return to previous living setting vs placement. Continue to assess patient for changes in above assessment. Monitor for medication needs, pain, and safety concerns. Hourly rounding performed to ensure safe environment.
[2018-05-12 15:54] VITALS: BP 109/72
--- NOTE | 2018-05-12 16:14 | NUR ---
pt up for meals. refused breakfast stating stomach hurt. Mylanta given with no relief. up for lunch and ate apple sauce and crackers. awhile later asked for pudding and paris crackers. C/O pain across entire abdomen. does not remember if it is different from her last stay here. dr hobbs wrote new orders. pt down for KUB. results pending. Has asked for xanax x2 for anxiety and nervous shaking.
--- NOTE | 2018-05-12 19:42 | RAD ---
ABDOMEN SUPINE UPRIGHT INDICATION: abd pain COMPARISON: CT abdomen pelvis dated 03/21/2018, KUB dated 03/20/2018 FINDINGS: No obvious free air. Mild colonic stool. Nonobstructive bowel gas pattern. No abnormal calcifications. The visualized lungs are normal in appearance. Mild atherosclerosis of the thoracic aorta. Surgical clips overlying the mediastinum. Left axillary surgical clips. Dextrocurvature of the thoracolumbar spine. Incompletely visualized right total hip arthroplasty. No acute osseous abnormality. IMPRESSION: Nonobstructive bowel gas pattern. Mild colonic stool. Electronically signed by: Jeremi Bailey MD (05/12/2018 7:39 PM) [facility]
[2018-05-12] MEDS: MIRTAZAPINE 15 MG TABLET PO SCH (19:49)
[2018-05-12] MEDS: METOCLOPRAMIDE 5 MG TABLET PO SCH (19:49)
[2018-05-12] MEDS: FAMOTIDINE 20 MG TABLET PO SCH (19:51)
--- NOTE | 2018-05-12 20:30 | NUR ---
Pt c/o intense stomach pain and high anxiety at bedtime, stated unable to sleep. PRN pain med and PRN Xanax given. Will continue to monitor.
[2018-05-12] MEDS: oxyCODONE IR 5 MG TABLET PO PRN (21:41)
--- NOTE | 2018-05-12 22:59 | PDOC ---
Exam Note: Edwin Note: Please also refer to the separate dictated note~for this date of service dictated separately.~Patient seen individually. Discussed the patient with Nursing staff reviewed the chart.~Reviewed interim history and current functioning. Reviewed vital signs,~Labs/ Radiology~and current medications noted below. Continue current treatment with the changes noted in the dictated addendum note Assessment: Vital Signs: Vital Signs Date Time Temp Pulse Resp B/P (MAP) Pulse Ox O2 Delivery O2 Flow Rate FiO2 05/12/18 21:41 Room Air 05/12/18 15:54 98.2 92 20 109/72 (84) 96 I&O Intake and Output 05/12/18 06:59 Intake Total 840 ml Balance 840 ml Intake Oral 840 ml # Voids 1 Current Medications: Meds: Current Medications Cephalexin HCl (Keflex) 500 mg 1X ONCE PO Last administered on 05/09/18at 15:30 ; Start 05/09/18 at 15:30; Stop 05/09/18 at 15:36; Status DC Acetaminophen (Tylenol) 650 mg PRN Q6HRS PRN PO PAIN / TEMP; Start 05/09/18 at 16:15 Multi-Ingredient Ointment (Analgesic [place]) 1 declan PRN QID PRN TP MUSCLE PAIN; Start 05/09/18 at 16:15 Al Hydroxide/Mg Hydroxide (Mylanta Plus Xs) 15 ml PRN AFTMEALHC PRN PO DYSPEPSIA Last administered on 05/12/18at 07:38; Start 05/09/18 at 16:15 Magnesium Hydroxide (Milk Of Magnesia) 2,400 mg PRN QHS PRN PO CONSTIPATION; Start 05/09/18 at 16:15 Alprazolam (Xanax) 0.5 mg PRN Q4HRS PRN PO ANXIETY / AGITATION Last administered on 05/12/18at 21:40; Start 05/09/18 at 17:15 Fluvoxamine Maleate (Luvox) 100 mg DAILY PO Last administered on 05/12/18at 07: 37; Start 05/10/18 at 09:00 Metoclopramide HCl (Reglan) 5 mg HS PO Last administered on 05/12/18at 19:49; Start 05/09/18 at 21:00 Mirtazapine (Remeron) 15 mg QHS PO Last administered on 05/12/18 19:49; Start 05/09/18 at 21:00 Oxycodone HCl (Roxicodone) 5 mg PRN Q12HR PRN PO severe pain Last administered on 05/12/18 21:41; Start 05/09/18 at 17:15 Polyethylene Glycol (miraLAX) 17 gm DAILY PO Last administered on 05/12/18at 07: 37; Start 05/10/18 at 09:00 Quetiapine Fumarate (SEROquel) 37.5 mg TIDWMEALS PO Last administered on 16:53; Start 05/10/18 at 08:00 Sucralfate (Carafate) 1 gm BID@0700,1600 PO Last administered on 05/12/18 16: 53; Start 05/10/18 at 07:00 Gabapentin (Neurontin) 100 mg TID PO Last administered on 05/12/18 19:49; Start 05/09/18 at 21:00; Stop 05/12/18 at 21:13; Status DC Famotidine (Pepcid) 20 mg BID PO Last administered on 05/12/18 19:51; Start at 21:00; Stop 05/17/18 at 13:47 Cephalexin HCl (Keflex) 250 mg STK-MED ONCE .ROUTE ; Start 05/09/18 at 15:01; Stop 05/12/18 at 17:33; Status DC Gabapentin (Neurontin) 100 mg BID92 PO ; Start 05/13/18 at 09:00 Gabapentin (Neurontin) 200 mg QHS PO ; Start 05/13/18 at 21:00 Active Scripts Active Reported D3-50 (Cholecalciferol (Vitamin D3)) 50,000 Unit Capsule 50,000 Unit PO WEEKLY Reglan (Metoclopramide Hcl) 10 Mg Tablet 5 Mg PO TIDAC Pantoprazole Sodium 40 Mg Tablet.dr 40 Mg PO DAILY Seroquel (Quetiapine Fumarate) 25 Mg Tablet 37.5 Mg PO TIDWMEALS Oxycodone Hcl 5 Mg Capsule 5 Mg PO PRN Q12HR PRN Fluvoxamine Maleate 50 Mg Tablet 100 Mg PO DAILY Miralax (Polyethylene Glycol 3350) 17 Gm Powd.pack 17 Gm PO DAILY Klor-Con M20 (Potassium Chloride) 20 Meq Tab.er.prt 20 Meq PO DAILY Sucralfate 1 Gm Tablet 1 Gm PO BID@0700,1600 Mirtazapine 15 Mg Tablet 15 Mg PO QHS Reglan (Metoclopramide Hcl) 10 Mg Tablet 5 Mg PO HS Alprazolam 0.5 Mg Tablet 0.5 Mg PO PRN Q4HRS PRN I have reviewed the current psychotropics carefully including drug interactions. Risk benefit ratio favors no change other than as noted in my dictated progress note. Diagnosis: Problems: (1) Anxiety disorder (2) Impulse control disorder (3) Major depressive disorder, recurrent episode (4) Panic disorder with agoraphobia and severe panic attacks (5) Obsessive compulsive disorder MELISSA BASHIR MD May 12, 2018 22:59
--- NOTE | 2018-05-12 23:05 | PN ---
DATE: 05/11/2018 PSYCHIATRIC PROGRESS NOTE This is a late entry 05/11/2018 covers elements not covered in my initial note. SUBJECTIVE: I met with the patient in the evening. The patient slept 7 hours previous evening. She was quite anxious, restless, having panic attacks at night, received Xanax at around 11 p.m. and on 05/11/2018 at 10:22 and 15:40 due to her ongoing anxiety. Sumit, her significant other visited her and she was a little calmer after this. REVIEW OF SYSTEMS: No CV, , pulmonary, eye system symptoms on review. MENTAL STATUS EXAM: Reasonably oriented. Speech is coherent, slightly less pressured. Abstraction fair, computation impaired, language function intact, attention span short. Mood and affect remains somewhat obsessive, anxious. No active suicidal ideation. LABORATORY DATA: Reviewed. IMPRESSION: Major depressive disorder, obsessive compulsive disorder, generalized anxiety disorder, panic disorder. PLAN: From a psychiatric standpoint, continue Seroquel 37.5 mg 3 times a day, Luvox 100 mg a day, Neurontin started 100 mg 3 times a day, Remeron 15 mg at bedtime, Xanax p.r.n. May consider increasing Neurontin in due course and/or Seroquel. MELISSA BASHIR MD DR: CARRILLO/praful JOB#: [id number] / [id number]
[2018-05-13 05:48] VITALS: BP 109/71
[2018-05-13] MEDS: FAMOTIDINE 20 MG TABLET PO SCH ×2 (07:42→20:08)
[2018-05-13] MEDS: POLYETHYLENE GLYCOL 3350 17 GM PACKET. PO SCH (07:42)
[2018-05-13] MEDS: QUEtiapine 25 MG TABLET. PO SCH ×3 (07:42→17:55)
[2018-05-13] MEDS: SUCRALFATE 1 GM TABLET. PO SCH ×2 (07:42→17:55)
[2018-05-13] MEDS: GABAPENTIN 100 MG CAPSULE. PO SCH ×3 (07:44→20:10)
[2018-05-13] MEDS: ALPRAZolam 0.5 MG TABLET PO PRN ×2 (07:44→20:19)
--- NOTE | 2018-05-13 08:55 | NUR ---
Behavior Intervention Response and Plan: BIRP Note: Behavior: Assumed Care of patient, patient located in Patient Room at shift change. Patient exhibited the following behavior Attention Seeking, Medication Seeking, Withdrawn. Brief assessment on rounds of vital signs, medication needs, lab studies, and pain. Treatment plan problems . Intervention: Patient assessed and the following interventions initiated safety checks 15 Minute Checks Cognitive Assessment , Head to toe Assessment , Medications. Response: After interactions and interventions patient responded in the following manner, Compliant , Anxious ,Withdrawn. Continue to assess behaviors and condition will continue to monitor throughout the shift as needed. Patient educated on ADL's, and hand hygiene. Plan: Continue to monitor Master Treatment Plan for patient's progress toward short term goals of Decreased Anxiety, Improved Mood, snf goals to return to previous living setting vs placement. Continue to assess patient for changes in above assessment. Monitor for medication needs, pain, and safety concerns. Hourly rounding performed to ensure safe environment.
--- NOTE | 2018-05-13 10:45 | NUR ---
pt co chest discomfort. No soa. pain under left breast. Pulse 103 and reg. 100% RA 131/73. Dr hobbs notified. New orders noted.
[2018-05-13 11:21] LABS: BASO % 1 % (0-3); EOS # 0.1 x10^3/uL (0.0-0.7); EOS % 2 % (0-3); HEMATOCRIT 39.5 % (36.0-47.0); LYMPH # 0.9 x10^3/uL (1.0-4.8); LYMPH % 24 % (24-48); MEAN CORPUSCULAR HEMOGLOBIN 33 pg (25-35); MEAN CORPUSCULAR HGB CONC 33 g/dL (31-37); MEAN CORPUSCULAR VOLUME 100 fL (79-100); MONO # 0.4 x10^3/uL (0.0-1.1); MONO % 11 % (0-9); NEUT # 2.2 x10^3uL (1.8-7.7); NEUT % 61 % (31-73); PLATELET COUNT 212 x10^3/uL (140-400); RED BLOOD COUNT 3.94 x10^6/uL (3.50-5.40); RED CELL DISTRIBUTION WIDTH 12.9 % (11.5-14.5); WHITE BLOOD COUNT 3.5 x10^3/uL (4.0-11.0)
--- NOTE | 2018-05-13 11:30 | NUR ---
CK elevated but Trop WNL. EKG done. Called Dr yap regarding QT level-449 and pt on Seroquel. Stated to continue Seroquel and consult cardiology.
--- NOTE | 2018-05-13 11:38 | EKG ---
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
[2018-05-13 11:43] LABS: ALBUMIN 3.7 g/dL (3.4-5.0); ALBUMIN/GLOBULIN RATIO 1.2 (1.0-1.7); CREATININE 0.8 mg/dL (0.6-1.0); GFR 70.5; POTASSIUM 3.9 mmol/L (3.5-5.1); TOTAL BILIRUBIN 0.3 mg/dL (0.2-1.0); TOTAL PROTEIN 6.9 g/dL (6.4-8.2)
[2018-05-13] MEDS: oxyCODONE IR 5 MG TABLET PO PRN (12:48)
--- NOTE | 2018-05-13 15:15 | NUR ---
Report given to Dr Spivey. Order to nake pt NPO after midnight. Second troponin the same.
[2018-05-13 15:56] VITALS: BP 106/53
--- NOTE | 2018-05-13 17:01 | NUR ---
Pt no longer has any c/o pain. Family here to see pt.
--- NOTE | 2018-05-13 20:06 | PN ---
DATE: 05/12/2018 This is a late entry, 05/12/2018, covers the elements not covered in my initial note. SUBJECTIVE: I met with the patient in the evening. The patient slept 7 hours the previous evening, somewhat somatic, complains of GI symptoms, has had a KUB, which was negative, showed nonobstructive gas bowel pattern and colonic stools. We will defer to Dr. Duncan/Dr. Randolph, complains of stomach pain and has had Xanax twice. REVIEW OF SYSTEMS: As above. No CV, , pulmonary, eye system symptoms on review. MENTAL STATUS EXAM: Reasonably oriented. Speech is coherent, somewhat pressured. Abstraction fair, computation impaired, language function intact, attention span short. Mood and affect remain somewhat anxious, labile. LABORATORY DATA: Reviewed. IMPRESSION: Major depressive disorder with psychotic features; generalized anxiety disorder. PLAN: Increase Neurontin from 100 mg 3 times a day to 100 mg twice a day, 200 mg at bedtime. Continue rest unchanged. MAN Scooter BASHIR MD DR: CARRILLO/praful JOB#: [id number] / [id number]
[2018-05-13] MEDS: METOCLOPRAMIDE 5 MG TABLET PO SCH (20:08)
[2018-05-13] MEDS: MIRTAZAPINE 15 MG TABLET PO SCH (20:08)
[2018-05-13] MEDS: MAG HYDROX/AL HYDROX/SIMETH 30 ML ORAL.SUSP PO PRN (20:18)
--- NOTE | 2018-05-13 20:53 | PDOC ---
Exam Note: Edwin Note: Please also refer to the separate dictated note~for this date of service dictated separately.~Patient seen individually. Discussed the patient with Nursing staff reviewed the chart.~Reviewed interim history and current functioning. Reviewed vital signs,~Labs/ Radiology~and current medications noted below. Continue current treatment with the changes noted in the dictated addendum note Assessment: Vital Signs: Vital Signs Date Time Temp Pulse Resp B/P (MAP) Pulse Ox O2 Delivery O2 Flow Rate FiO2 05/13/18 15:56 98.2 87 16 106/53 (70) 100 05/12/18 23:28 Room Air I&O Intake and Output 05/13/18 06:59 Intake Total 480 ml Balance 480 ml Intake Oral 480 ml # Voids 1 Labs: Laboratory Tests Test 05/13/18 11:12 05/13/18 14:01 05/13/18 17:22 White Blood Count 3.5 x10^3/uL (4.0-11.0) L Red Blood Count 3.94 x10^6/uL (3.50-5.40) Hemoglobin 13.0 g/dL (12.0-15.5) Hematocrit 39.5 % (36.0-47.0) Mean Corpuscular Volume 100 fL (79-100) Mean Corpuscular Hemoglobin 33 pg (25-35) Mean Corpuscular Hemoglobin Concent 33 g/dL (31-37) Red Cell Distribution Width 12.9 % (11.5-14.5) Platelet Count 212 x10^3/uL (140-400) Neutrophils (%) (Auto) 61 % (31-73) Lymphocytes (%) (Auto) 24 % (24-48) Monocytes (%) (Auto) 11 % (0-9) H Eosinophils (%) (Auto) 2 % (0-3) Basophils (%) (Auto) 1 % (0-3) Neutrophils # (Auto) 2.2 x10^3uL (1.8-7.7) Lymphocytes # (Auto) 0.9 x10^3/uL (1.0-4.8) L Monocytes # (Auto) 0.4 x10^3/uL (0.0-1.1) Eosinophils # (Auto) 0.1 x10^3/uL (0.0-0.7) Basophils # (Auto) 0.0 x10^3/uL (0.0-0.2) Sodium Level 141 mmol/L (136-145) Potassium Level 3.9 mmol/L (3.5-5.1) Chloride Level 105 mmol/L (98-107) Carbon Dioxide Level 31 mmol/L (21-32) Anion Gap 5 (6-14) L Blood Urea Nitrogen 8 mg/dL (7-20) Creatinine 0.8 mg/dL (0.6-1.0) Estimated GFR (Cockcroft-Gault) 70.5 BUN/Creatinine Ratio 10 (6-20) Glucose Level 92 mg/dL (70-99) Calcium Level 9.0 mg/dL (8.5-10.1) Total Bilirubin 0.3 mg/dL (0.2-1.0) Aspartate Amino Transferase (AST) 30 U/L (15-37) Alanine Aminotransferase (ALT) 23 U/L (14-59) Alkaline Phosphatase 62 U/L (46-116) Creatine Kinase 369 U/L (26-192) H 373 U/L (26-192) H 507 U/L (26-192) H Creatine Kinase MB (Mass) 11.1 ng/mL (0.0-3.6) H 9.5 ng/mL (0.0-3.6) H 13.2 ng/mL (0.0-3.6) H Creatine Kinase MB Relative Index 3.0 % (0-4) 2.5 % (0-4) 2.6 % (0-4) Troponin I Quantitative < 0.017 ng/mL (0-0.055) < 0.017 ng/mL (0-0.055) < 0.017 ng/mL (0-0.055) Total Protein 6.9 g/dL (6.4-8.2) Albumin 3.7 g/dL (3.4-5.0) Albumin/Globulin Ratio 1.2 (1.0-1.7) Current Medications: Meds: Current Medications Cephalexin HCl (Keflex) 500 mg 1X ONCE PO Last administered on 05/09/18at 15:30 ; Start 05/09/18 at 15:30; Stop 05/09/18 at 15:36; Status DC Acetaminophen (Tylenol) 650 mg PRN Q6HRS PRN PO PAIN / TEMP; Start 05/09/18 at 16:15 Multi-Ingredient Ointment (Analgesic [place]) 1 declan PRN QID PRN TP MUSCLE PAIN; Start 05/09/18 at 16:15 Al Hydroxide/Mg Hydroxide (Mylanta Plus Xs) 15 ml PRN AFTMEALHC PRN PO DYSPEPSIA Last administered on 05/13/18 20:18; Start 05/09/18 at 16:15 Magnesium Hydroxide (Milk Of Magnesia) 2,400 mg PRN QHS PRN PO CONSTIPATION; Start 05/09/18 at 16:15 Alprazolam (Xanax) 0.5 mg PRN Q4HRS PRN PO ANXIETY / AGITATION Last administered on 05/13/18 20:19; Start 05/09/18 at 17:15 Fluvoxamine Maleate (Luvox) 100 mg DAILY PO Last administered on 05/13/18 07: 42; Start 05/10/18 at 09:00 Metoclopramide HCl (Reglan) 5 mg HS PO Last administered on 05/13/18 20:08; Start 05/09/18 at 21:00 Mirtazapine (Remeron) 15 mg QHS PO Last administered on 05/13/18 20:08; Start 05/09/18 at 21:00 Oxycodone HCl (Roxicodone) 5 mg PRN Q12HR PRN PO severe pain Last administered on 05/13/18at 12:48; Start 05/09/18 at 17:15 Polyethylene Glycol (miraLAX) 17 gm DAILY PO Last administered on 05/13/18at 07: 42; Start 05/10/18 at 09:00 Quetiapine Fumarate (SEROquel) 37.5 mg TIDWMEALS PO Last administered on 17:55; Start 05/10/18 at 08:00 Sucralfate (Carafate) 1 gm BID@0700,1600 PO Last administered on 05/13/18 17: 55; Start 05/10/18 at 07:00 Gabapentin (Neurontin) 100 mg TID PO Last administered on 05/12/18at 19:49; Start 05/09/18 at 21:00; Stop 7/14/18 at 21:13; Status DC Famotidine (Pepcid) 20 mg BID PO Last administered on 05/13/18at 20:08; Start at 21:00; Stop 05/17/18 at 13:47 Cephalexin HCl (Keflex) 250 mg STK-MED ONCE .ROUTE ; Start 05/09/18 at 15:01; Stop 05/12/18 at 17:33; Status DC Gabapentin (Neurontin) 100 mg BID92 PO Last administered on 05/13/18at 12:48; Start 05/13/18 at 09:00 Gabapentin (Neurontin) 200 mg QHS PO Last administered on 05/13/18at 20:10; Start 05/13/18 at 21:00 Active Scripts Active Reported D3-50 (Cholecalciferol (Vitamin D3)) 50,000 Unit Capsule 50,000 Unit PO WEEKLY Reglan (Metoclopramide Hcl) 10 Mg Tablet 5 Mg PO TIDAC Pantoprazole Sodium 40 Mg Tablet.dr 40 Mg PO DAILY Seroquel (Quetiapine Fumarate) 25 Mg Tablet 37.5 Mg PO TIDWMEALS Oxycodone Hcl 5 Mg Capsule 5 Mg PO PRN Q12HR PRN Fluvoxamine Maleate 50 Mg Tablet 100 Mg PO DAILY Miralax (Polyethylene Glycol 3350) 17 Gm Powd.pack 17 Gm PO DAILY Klor-Con M20 (Potassium Chloride) 20 Meq Tab.er.prt 20 Meq PO DAILY Sucralfate 1 Gm Tablet 1 Gm PO BID@0700,1600 Mirtazapine 15 Mg Tablet 15 Mg PO QHS Reglan (Metoclopramide Hcl) 10 Mg Tablet 5 Mg PO HS Alprazolam 0.5 Mg Tablet 0.5 Mg PO PRN Q4HRS PRN I have reviewed the current psychotropics carefully including drug interactions. Risk benefit ratio favors no change other than as noted in my dictated progress note. Diagnosis: Problems: (1) Anxiety disorder (2) Impulse control disorder (3) Major depressive disorder, recurrent episode (4) Panic disorder with agoraphobia and severe panic attacks (5) Obsessive compulsive disorder MELISSA BASHIR MD May 13, 2018 20:53
--- NOTE | 2018-05-14 04:16 | NUR ---
Pt c/o of pain at bedtime again, stated pressure in ABD and Chest area. Pt stated she was unable to pinpoint any pain per se, just a general pressure "sort of everywhere in here"-gestured to her torso. PRN Maalox and Xanax given.
[2018-05-14 05:56] VITALS: BP 114/52
[2018-05-14] MEDS: FAMOTIDINE 20 MG TABLET PO SCH ×2 (10:26→19:56)
[2018-05-14] MEDS: SUCRALFATE 1 GM TABLET. PO SCH ×2 (10:26→17:27)
[2018-05-14] MEDS: GABAPENTIN 100 MG CAPSULE. PO SCH ×3 (10:26→19:56)
[2018-05-14] MEDS: POLYETHYLENE GLYCOL 3350 17 GM PACKET. PO SCH (10:26)
[2018-05-14] MEDS: QUEtiapine 25 MG TABLET. PO SCH ×3 (10:27→17:27)
[2018-05-14] MEDS: ALPRAZolam 0.5 MG TABLET PO PRN ×3 (10:27→19:57)
--- NOTE | 2018-05-14 11:38 | NUR ---
Behavior Intervention Response and Plan: BIRP Note: Behavior: Assumed Care of patient, patient located in Patient Room at shift change. Patient exhibited the following behavior Anxious, Medication Seeking, Withdrawn. Brief assessment on rounds of vital signs, medication needs, lab studies, and pain. Treatment plan problems 1-2. Intervention: Patient assessed and the following interventions initiated safety checks 15 Minute Checks Cognitive Assessment , Head to toe Assessment , Medications. Response: After interactions and interventions patient responded in the following manner, Withdrawn , Anxious ,Medication Seeking. Continue to assess behaviors and condition will continue to monitor throughout the shift as needed. Patient educated on ADL's, and hand hygiene. Plan: Continue to monitor Master Treatment Plan for patient's progress toward short term goals of Decreased Anxiety, Improved Mood, rn long term care goals to return to previous living setting vs placement. Continue to assess patient for changes in above assessment. Monitor for medication needs, pain, and safety concerns. Hourly rounding performed to ensure safe environment.
[2018-05-14] MEDS: MAG HYDROX/AL HYDROX/SIMETH 30 ML ORAL.SUSP PO PRN (15:09)
[2018-05-14 16:01] VITALS: BP 120/65
--- NOTE | 2018-05-14 16:15 | PDOC2 ---
CONSULT Date of Admission DATE: 05/14/18 TIME: 15:59 Reason for Consult: cp Problem List Problems Medical Problems: (1) Major depressive disorder Status: Acute History of Present Illness Ms Mckeon is a 72 year old female admitted to [facility] for worsening anxiety, mood lability, failure of outpatient treatment. She apparently developed and complained of chest pain yesterday so a consult was called. She is a fairly poor historian but stein report that she had some chest pressure twice yesterday while doing nothing. She is unsure of the duration but reports mild intensity. She denies any dyspnea, palpitations or lightheadedness. She denies any further chest discomfort but complains of fatigue and not sleeping well. Past Medical History chronic constipation, gastroesophageal reflux disease, gastroparesis, left breast cancer, anxiety, depression. Past Surgical History right total hip arthroplasty, left breast cancer status post lumpectomy. Family History Unremarkable. Social History She does not smoke, drink alcohol, or recreational drugs. She is retired. Current Medications Current Medications Cephalexin HCl (Keflex) 500 mg 1X ONCE PO Last administered on 05/09/18at 15:30 ; Start 05/09/18 at 15:30; Stop 05/09/18 at 15:36; Status DC Acetaminophen (Tylenol) 650 mg PRN Q6HRS PRN PO PAIN / TEMP; Start 05/09/18 at 16:15 Multi-Ingredient Ointment (Analgesic [place]) 1 declan PRN QID PRN TP MUSCLE PAIN; Start 05/09/18 at 16:15 Al Hydroxide/Mg Hydroxide (Mylanta Plus Xs) 15 ml PRN AFTMEALHC PRN PO DYSPEPSIA Last administered on 05/14/18at 15:09; Start 05/09/18 at 16:15 Magnesium Hydroxide (Milk Of Magnesia) 2,400 mg PRN QHS PRN PO CONSTIPATION; Start 05/09/18 at 16:15 Alprazolam (Xanax) 0.5 mg PRN Q4HRS PRN PO ANXIETY / AGITATION Last administered on 05/14/18at 10:27; Start 05/09/18 at 17:15 Fluvoxamine Maleate (Luvox) 100 mg DAILY PO Last administered on 05/14/18at 10: 26; Start 05/10/18 at 09:00 Metoclopramide HCl (Reglan) 5 mg HS PO Last administered on 05/13/18 20:08; Start 05/09/18 at 21:00 Mirtazapine (Remeron) 15 mg QHS PO Last administered on 05/13/18 20:08; Start 05/09/18 at 21:00 Oxycodone HCl (Roxicodone) 5 mg PRN Q12HR PRN PO severe pain Last administered on 05/13/18 12:48; Start 05/09/18 at 17:15 Polyethylene Glycol (miraLAX) 17 gm DAILY PO Last administered on 05/14/18 10: 26; Start 05/10/18 at 09:00 Quetiapine Fumarate (SEROquel) 37.5 mg TIDWMEALS PO Last administered on 13:29; Start 05/10/18 at 08:00 Sucralfate (Carafate) 1 gm BID@0700,1600 PO Last administered on 05/14/18 10: 26; Start 05/10/18 at 07:00 Gabapentin (Neurontin) 100 mg TID PO Last administered on 05/12/18 19:49; Start 05/09/18 at 21:00; Stop 05/12/18 at 21:13; Status DC Famotidine (Pepcid) 20 mg BID PO Last administered on 05/14/18 10:26; Start at 21:00; Stop 05/17/18 at 13:47 Cephalexin HCl (Keflex) 250 mg STK-MED ONCE .ROUTE ; Start 05/09/18 at 15:01; Stop 05/12/18 at 17:33; Status DC Gabapentin (Neurontin) 100 mg BID92 PO Last administered on 05/14/18 13:29; Start 05/13/18 at 09:00 Gabapentin (Neurontin) 200 mg QHS PO Last administered on 05/13/18 20:10; Start 05/13/18 at 21:00 Active Scripts Active Reported D3-50 (Cholecalciferol (Vitamin D3)) 50,000 Unit Capsule 50,000 Unit PO WEEKLY Reglan (Metoclopramide Hcl) 10 Mg Tablet 5 Mg PO TIDAC Pantoprazole Sodium 40 Mg Tablet.dr 40 Mg PO DAILY Seroquel (Quetiapine Fumarate) 25 Mg Tablet 37.5 Mg PO TIDWMEALS Oxycodone Hcl 5 Mg Capsule 5 Mg PO PRN Q12HR PRN Fluvoxamine Maleate 50 Mg Tablet 100 Mg PO DAILY Miralax (Polyethylene Glycol 3350) 17 Gm Powd.pack 17 Gm PO DAILY Klor-Con M20 (Potassium Chloride) 20 Meq Tab.er.prt 20 Meq PO DAILY Sucralfate 1 Gm Tablet 1 Gm PO BID@0700,1600 Mirtazapine 15 Mg Tablet 15 Mg PO QHS Reglan (Metoclopramide Hcl) 10 Mg Tablet 5 Mg PO HS Alprazolam 0.5 Mg Tablet 0.5 Mg PO PRN Q4HRS PRN Allergies: Coded Allergies: No Known Drug Allergies (Unverified , 09/28/17) Review of System as per HPI General: Alert, Cooperative, No acute distress HEENT: Atraumatic, EOMI Lungs: Clear to auscultation Heart: Regular rate, Normal S1, Normal S2 Abdomen: Normal bowel sounds, Soft Extremities: No edema Neuro: Normal speech, Strength at 5/5 X4 ext Psych/Mental Status: Mood NL VITALS Vital Signs Date Time Temp Pulse Resp B/P (MAP) Pulse Ox O2 Delivery O2 Flow Rate FiO2 05/14/18 05:56 97.8 94 20 114/52 (72) 96 Room Air Labs Laboratory Tests Test 05/13/18 11:12 05/13/18 14:01 05/13/18 17:22 White Blood Count 3.5 x10^3/uL (4.0-11.0) Red Blood Count 3.94 x10^6/uL (3.50-5.40) Hemoglobin 13.0 g/dL (12.0-15.5) Hematocrit 39.5 % (36.0-47.0) Mean Corpuscular Volume 100 fL (79-100) Mean Corpuscular Hemoglobin 33 pg (25-35) Mean Corpuscular Hemoglobin Concent 33 g/dL (31-37) Red Cell Distribution Width 12.9 % (11.5-14.5) Platelet Count 212 x10^3/uL (140-400) Neutrophils (%) (Auto) 61 % (31-73) Lymphocytes (%) (Auto) 24 % (24-48) Monocytes (%) (Auto) 11 % (0-9) Eosinophils (%) (Auto) 2 % (0-3) Basophils (%) (Auto) 1 % (0-3) Neutrophils # (Auto) 2.2 x10^3uL (1.8-7.7) Lymphocytes # (Auto) 0.9 x10^3/uL (1.0-4.8) Monocytes # (Auto) 0.4 x10^3/uL (0.0-1.1) Eosinophils # (Auto) 0.1 x10^3/uL (0.0-0.7) Basophils # (Auto) 0.0 x10^3/uL (0.0-0.2) Sodium Level 141 mmol/L (136-145) Potassium Level 3.9 mmol/L (3.5-5.1) Chloride Level 105 mmol/L (98-107) Carbon Dioxide Level 31 mmol/L (21-32) Anion Gap 5 (6-14) Blood Urea Nitrogen 8 mg/dL (7-20) Creatinine 0.8 mg/dL (0.6-1.0) Estimated GFR (Cockcroft-Gault) 70.5 BUN/Creatinine Ratio 10 (6-20) Glucose Level 92 mg/dL (70-99) Calcium Level 9.0 mg/dL (8.5-10.1) Total Bilirubin 0.3 mg/dL (0.2-1.0) Aspartate Amino Transf (AST/SGOT) 30 U/L (15-37) Alanine Aminotransferase (ALT/SGPT) 23 U/L (14-59) Alkaline Phosphatase 62 U/L (46-116) Creatine Kinase 369 U/L (26-192) 373 U/L (26-192) 507 U/L (26-192) Creatine Kinase MB (Mass) 11.1 ng/mL (0.0-3.6) 9.5 ng/mL (0.0-3.6) 13.2 ng/mL (0.0-3.6) Creatine Kinase MB Relative Index 3.0 % (0-4) 2.5 % (0-4) 2.6 % (0-4) Troponin I Quantitative < 0.017 ng/mL (0-0.055) < 0.017 ng/mL (0-0.055) < 0.017 ng/mL (0-0.055) Total Protein 6.9 g/dL (6.4-8.2) Albumin 3.7 g/dL (3.4-5.0) Albumin/Globulin Ratio 1.2 (1.0-1.7) Images EKG - sinus rhythm without acute ischemic changes. Abd Xray IMPRESSION: Nonobstructive bowel gas pattern. Mild colonic stool. Assessment/Plan 1. Chest pain - IL ruled out. No acute EKG changes. Check echo. Suggest MPI as outpatient. Start low dose aspirin. 2. GERD - on carafate 3. prolonged QTC - likely secondary to psychotropic medications. Improved today. Continue supportive care. 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
--- NOTE | 2018-05-14 17:35 | NUR ---
Pt has been anxious and med seeking throughout the day. Pt's hands visibly trembling. PRN Xanax administered twice. Pt complaining of stomach pain. PRN Mylanta administered. Pt withdrawn to room most of day.
--- NOTE | 2018-05-14 19:38 | NUR ---
Patient requested PRN xanax with HS medications. Administered PRN xanax.
[2018-05-14] MEDS: METOCLOPRAMIDE 5 MG TABLET PO SCH (19:57)
[2018-05-14] MEDS: MIRTAZAPINE 15 MG TABLET PO SCH (19:57)
--- NOTE | 2018-05-14 20:25 | PDOC ---
Exam Note: Edwin Note: Please also refer to the separate dictated note~for this date of service dictated separately.~Patient seen individually. Discussed the patient with Nursing staff reviewed the chart.~Reviewed interim history and current functioning. Reviewed vital signs,~Labs/ Radiology~and current medications noted below. Continue current treatment with the changes noted in the dictated addendum note Assessment: Vital Signs: Vital Signs Date Time Temp Pulse Resp B/P (MAP) Pulse Ox O2 Delivery O2 Flow Rate FiO2 05/14/18 16:01 99.3 107 18 120/65 (83) 95 05/14/18 05:56 Room Air I&O Intake and Output 05/14/18 06:59 Intake Total 840 ml Balance 840 ml Intake Oral 840 ml Current Medications: Meds: Current Medications Cephalexin HCl (Keflex) 500 mg 1X ONCE PO Last administered on 05/09/18at 15:30 ; Start 05/09/18 at 15:30; Stop 05/09/18 at 15:36; Status DC Acetaminophen (Tylenol) 650 mg PRN Q6HRS PRN PO PAIN / TEMP; Start 05/09/18 at 16:15 Multi-Ingredient Ointment (Analgesic [place]) 1 declan PRN QID PRN TP MUSCLE PAIN; Start 05/09/18 at 16:15 Al Hydroxide/Mg Hydroxide (Mylanta Plus Xs) 15 ml PRN AFTMEALHC PRN PO DYSPEPSIA Last administered on 05/14/18at 15:09; Start 05/09/18 at 16:15 Magnesium Hydroxide (Milk Of Magnesia) 2,400 mg PRN QHS PRN PO CONSTIPATION; Start 05/09/18 at 16:15 Alprazolam (Xanax) 0.5 mg PRN Q4HRS PRN PO ANXIETY / AGITATION Last administered on 05/14/18at 19:57; Start 05/09/18 at 17:15 Fluvoxamine Maleate (Luvox) 100 mg DAILY PO Last administered on 05/14/18at 10: 26; Start 05/10/18 at 09:00; Stop 05/15/18 at 09:01 Metoclopramide HCl (Reglan) 5 mg HS PO Last administered on 05/14/18at 19:57; Start 05/09/18 at 21:00 Mirtazapine (Remeron) 15 mg QHS PO Last administered on 05/14/18 19:57; Start 05/09/18 at 21:00 Oxycodone HCl (Roxicodone) 5 mg PRN Q12HR PRN PO severe pain Last administered on 05/13/18 12:48; Start 05/09/18 at 17:15 Polyethylene Glycol (miraLAX) 17 gm DAILY PO Last administered on 05/14/18 10: 26; Start 05/10/18 at 09:00 Quetiapine Fumarate (SEROquel) 37.5 mg TIDWMEALS PO Last administered on 17:27; Start 05/10/18 at 08:00 Sucralfate (Carafate) 1 gm BID@0700,1600 PO Last administered on 05/14/18 17: 27; Start 05/10/18 at 07:00 Gabapentin (Neurontin) 100 mg TID PO Last administered on 05/12/18 19:49; Start 05/09/18 at 21:00; Stop 05/12/18 at 21:13; Status DC Famotidine (Pepcid) 20 mg BID PO Last administered on 05/14/18at 19:56; Start at 21:00; Stop 05/17/18 at 13:47 Cephalexin HCl (Keflex) 250 mg STK-MED ONCE .ROUTE ; Start 05/09/18 at 15:01; Stop 05/12/18 at 17:33; Status DC Gabapentin (Neurontin) 100 mg BID92 PO Last administered on 05/14/18 13:29; Start 05/13/18 at 09:00 Gabapentin (Neurontin) 200 mg QHS PO Last administered on 05/14/18at 19:56; Start 05/13/18 at 21:00 Fluvoxamine Maleate (Luvox) 100 mg DAILY PO ; Start 05/16/18 at 09:00 Fluvoxamine Maleate (Luvox) 25 mg DAILY PO ; Start 05/16/18 at 09:00 Active Scripts Active Reported D3-50 (Cholecalciferol (Vitamin D3)) 50,000 Unit Capsule 50,000 Unit PO WEEKLY Reglan (Metoclopramide Hcl) 10 Mg Tablet 5 Mg PO TIDAC Pantoprazole Sodium 40 Mg Tablet.dr 40 Mg PO DAILY Seroquel (Quetiapine Fumarate) 25 Mg Tablet 37.5 Mg PO TIDWMEALS Oxycodone Hcl 5 Mg Capsule 5 Mg PO PRN Q12HR PRN Fluvoxamine Maleate 50 Mg Tablet 100 Mg PO DAILY Miralax (Polyethylene Glycol 3350) 17 Gm Powd.pack 17 Gm PO DAILY Klor-Con M20 (Potassium Chloride) 20 Meq Tab.er.prt 20 Meq PO DAILY Sucralfate 1 Gm Tablet 1 Gm PO BID@0700,1600 Mirtazapine 15 Mg Tablet 15 Mg PO QHS Reglan (Metoclopramide Hcl) 10 Mg Tablet 5 Mg PO HS Alprazolam 0.5 Mg Tablet 0.5 Mg PO PRN Q4HRS PRN I have reviewed the current psychotropics carefully including drug interactions. Risk benefit ratio favors no change other than as noted in my dictated progress note. Diagnosis: Problems: (1) Anxiety disorder (2) Impulse control disorder (3) Major depressive disorder, recurrent episode (4) Panic disorder with agoraphobia and severe panic attacks (5) Obsessive compulsive disorder MELISSA BASHIR MD May 14, 2018 20:24
--- NOTE | 2018-05-14 20:40 | PN ---
DATE: 05/13/2018 This is a late entry 05/13/2018, covers elements not covered in my initial note. SUBJECTIVE: I met with the patient in the evening. Had been called by the nursing staff earlier in the day due to prolongation on the QTC observed on EKG. QTC was 450. We will get a Cardiology consult, but perhaps for now the QTC is acceptable. She has had significant somatic complaints and preoccupation complaints of pressure on the chest. Cardiac enzymes were unremarkable per Dr. Garcia. REVIEW OF SYSTEMS: No CV, , GI, eye system symptoms on review. MENTAL STATUS EXAM: Oriented to herself and situation. Speech has some latency, coherent. Abstraction fair, computation impaired, language function intact, attention span short. Mood and affect remain somewhat withdrawn with paranoia evident. LABORATORY DATA: Reviewed. IMPRESSION: Unchanged from initial note. PLAN: Continue current psychotropics. We will defer cardiac chest pain to cardiac consult. Adjust further as clinically indicated. MELISSA BASHIR MD DR: CARRILLO/praful JOB#: [id number] / [id number]
--- NOTE | 2018-05-15 00:43 | NUR ---
Behavior Intervention Response and Plan: BIRP Note: Behavior: Assumed Care of patient, patient located in Hallway at shift change. Patient exhibited the following behavior Calm, Able to Focus on Task, Compliant. Brief assessment on rounds of vital signs, medication needs, lab studies, and pain. Treatment plan problems . Intervention: Patient assessed and the following interventions initiated safety checks 15 Minute Checks Head to toe Assessment , Cognitive Assessment , Medications. Response: After interactions and interventions patient responded in the following manner, Withdrawn , Anxious ,Withdrawn. Continue to assess behaviors and condition will continue to monitor throughout the shift as needed. Patient educated on ADL's, and hand hygiene. 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 Continue to assess patient for changes in above assessment. Monitor for medication needs, pain, and safety concerns. Hourly rounding performed to ensure safe environment.
[2018-05-15 06:28] VITALS: BP 98/64
[2018-05-15] MEDS: MAG HYDROX/AL HYDROX/SIMETH 30 ML ORAL.SUSP PO PRN (07:44)
[2018-05-15] MEDS: ALPRAZolam 0.5 MG TABLET PO PRN ×2 (07:44→15:22)
[2018-05-15] MEDS: FAMOTIDINE 20 MG TABLET PO SCH ×2 (07:45→19:31)
[2018-05-15] MEDS: GABAPENTIN 100 MG CAPSULE. PO SCH ×3 (07:45→19:31)
[2018-05-15] MEDS: POLYETHYLENE GLYCOL 3350 17 GM PACKET. PO SCH (07:45)
[2018-05-15] MEDS: SUCRALFATE 1 GM TABLET. PO SCH ×2 (07:45→17:42)
[2018-05-15] MEDS: QUEtiapine 25 MG TABLET. PO SCH ×3 (07:45→17:42)
--- NOTE | 2018-05-15 11:10 | NUR ---
Behavior Intervention Response and Plan: BIRP Note: Behavior: Assumed Care of patient, patient located in Patient Room at shift change. Patient exhibited the following behavior Anxious, Somatic, Withdrawn. Brief assessment on rounds of vital signs, medication needs, lab studies, and pain. Treatment plan problems 1-2. Intervention: Patient assessed and the following interventions initiated safety checks 15 Minute Checks Cognitive Assessment , Head to toe Assessment , Medications. Response: After interactions and interventions patient responded in the following manner, Somatic , Anxious ,Withdrawn. Continue to assess behaviors and condition will continue to monitor throughout the shift as needed. Patient educated on ADL's, and hand hygiene. 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 Continue to assess patient for changes in above assessment. Monitor for medication needs, pain, and safety concerns. Hourly rounding performed to ensure safe environment.
--- NOTE | 2018-05-15 14:50 | PN ---
DATE: 05/14/2018 This is a late entry for 05/14/2018 and covers the elements not covered in my initial note. SUBJECTIVE: I met with the patient in the evening. The patient slept 8-3/4 hours previous evening. She was seen by Cardiology and this was clinically insignificant consequent to chest pain and she denies any further pressure in the chest or pain. She was quite anxious in the morning, somatically preoccupied, seeking p.r.n. medications. Cardiology has suggested a stress test as an outpatient. She has received Xanax x 2 now, on 05/14/2018, complains of GI symptoms rather than cardiac. REVIEW OF SYSTEMS: No CV, , pulmonary, eye, ENT system symptoms on review. MENTAL STATUS EXAM: Reasonably oriented. Speech coherent, somewhat pressured at times. Abstraction fair, computation impaired, language function intact. Attention span short, remains anxious, obsessive. LABORATORY DATA: Reviewed. IMPRESSION: Major depressive disorder with psychotic features; generalized anxiety disorder. PLAN: Increase Luvox from 100 mg a day to 125 mg a day on 05/15/2018. Continue rest unchanged from initial note. MAN Scooter BASHIR MD DR: CARRILLO/praful JOB#: [id number] / [id number]
--- NOTE | 2018-05-15 15:44 | CARD ---
MR#: [id number] Date of Study: 05/15/2018 Ordering Physician: AR HOLLINGSWORTH, Referring Physician: Stephany UMANZOR: BERNARDO Schroeder APPROVED REPORT EXAM: Two-dimensional and M-mode echocardiogram with Doppler and color Doppler. Other Information Quality : Average INDICATION Chest Pain 2D DIMENSIONS RVDd2.9 (2.9-3.5cm)Left Atrium(2D)2.4 (1.6-4.0cm) IVSd0.9 (0.7-1.1cm)Aortic Root(2D)2.9 (2.0-3.7cm) LVDd3.4 (3.9-5.9cm)LVOT Diameter1.9 (1.8-2.4cm) PWd0.9 (0.7-1.1cm)LVDs2.3 (2.5-4.0cm) FS (%) 32.3 %SV28.7 ml LVEF(%)61.8 (>50%) Aortic Valve AoV Peak Morteza.114.8cm/sAoV VTI23.4cm AO Peak GR.5.3mmHgLVOT Peak Morteza.88.5cm/s LVOT VTI 19.55cmAO Mean GR.3mmHg HENRIQUE (VMAX)2.23iz4BVK (VTI)2.35cm2 Mitral Valve MV E Vqqxnssd16.5cm/sMV DECEL TIHY237ln MV A [place]79.6cm/sE/A Ratio0.8 Pulmonary Valve PV Peak Deameost54.7cm/sPV Peak Grad.3mmHg LEFT VENTRICLE The left ventricle cavity is small. There is normal left ventricular wall thickness. The left ventric ular systolic function is normal. The ejection fraction is estimated at 60%. There is normal LV segme ntal wall motion. Transmitral Doppler flow pattern is Grade I-abnormal relaxation pattern. RIGHT VENTRICLE The right ventricle is normal size. The right ventricular systolic function is normal. ATRIA The left atrium size is normal. The right atrium size is normal. The interatrial septum is intact wit h no evidence for an atrial septal defect or patent foramen ovale as noted on 2-D or Doppler imaging. AORTIC VALVE The aortic valve is thickened but opens well. Doppler and Color Flow revealed no significant aortic r egurgitation. There is no significant aortic valvular stenosis. There is no aortic valvular vegetatio n. MITRAL VALVE The mitral valve is thickened but opens well. There is no evidence of mitral valve prolapse. There is no mitral valve stenosis. Doppler and Color Flow revealed no mitral valve regurgitation noted. TRICUSPID VALVE The tricuspid valve leaflets are thickened , but open well. Doppler and Color Flow revealed no tricus pid valve regurgitation noted. There is no tricuspid valve prolapse or vegetation. There is no tricus pid valve stenosis. PULMONIC VALVE The pulmonic valve is not well visualized. Doppler and Color Flow revealed trace to mild pulmonic kavon vular regurgitation. There is no pulmonic valvular stenosis. GREAT VESSELS The aortic root is normal in size. The IVC is normal in size and collapses >50% with inspiration. PERICARDIAL EFFUSION There is no pleural effusion. There is no evidence of significant pericardial effusion. Critical Notification Critical Value: No <Conclusion> The left ventricular systolic function is normal. The ejection fraction is estimated at 60%. There is normal LV segmental wall motion. Transmitral Doppler flow pattern is Grade I-abnormal relaxation pattern. No significant valvular abnormalities. There is no evidence of significant pericardial effusion. Signed by : Balwinder Bedoya, Electronically Approved : 05/15/2018 15:43:39
[2018-05-15 16:39] VITALS: BP 93/65
[2018-05-15] MEDS: METOCLOPRAMIDE 5 MG TABLET PO SCH (19:31)
[2018-05-15] MEDS: MIRTAZAPINE 15 MG TABLET PO SCH (19:31)
--- NOTE | 2018-05-15 20:00 | NUR ---
Behavior Intervention Response and Plan: BIRP Note: Behavior: Assumed Care of patient, patient located in Patient Room at shift change. Patient exhibited the following behavior Interactive, Calm, Social. Brief assessment on rounds of vital signs, medication needs, lab studies, and pain. Treatment plan problems . Intervention: Patient assessed and the following interventions initiated safety checks 15 Minute Checks Cognitive Assessment , Head to toe Assessment , Medications. Response: After interactions and interventions patient responded in the following manner, Drowsy , Social ,Calm. Continue to assess behaviors and condition will continue to monitor throughout the shift as needed. Patient educated on ADL's, and hand hygiene. 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 Continue to assess patient for changes in above assessment. Monitor for medication needs, pain, and safety concerns. Hourly rounding performed to ensure safe environment.
--- NOTE | 2018-05-15 20:56 | PDOC ---
Exam Note: Edwin Note: Please also refer to the separate dictated note~for this date of service dictated separately.~Patient seen individually. Discussed the patient with Nursing staff reviewed the chart.~Reviewed interim history and current functioning. Reviewed vital signs,~Labs/ Radiology~and current medications noted below. Continue current treatment with the changes noted in the dictated addendum note Assessment: Vital Signs: Vital Signs Date Time Temp Pulse Resp B/P (MAP) Pulse Ox O2 Delivery O2 Flow Rate FiO2 05/15/18 16:39 97.9 95 16 93/65 (74) 98 05/14/18 05:56 Room Air I&O Intake and Output 05/15/18 06:59 Intake Total 1080 ml Balance 1080 ml Intake Oral 1080 ml Current Medications: Meds: Current Medications Cephalexin HCl (Keflex) 500 mg 1X ONCE PO Last administered on 05/09/18at 15:30 ; Start 05/09/18 at 15:30; Stop 05/09/18 at 15:36; Status DC Acetaminophen (Tylenol) 650 mg PRN Q6HRS PRN PO PAIN / TEMP; Start 05/09/18 at 16:15 Multi-Ingredient Ointment (Analgesic [place]) 1 declan PRN QID PRN TP MUSCLE PAIN; Start 05/09/18 at 16:15 Al Hydroxide/Mg Hydroxide (Mylanta Plus Xs) 15 ml PRN AFTMEALHC PRN PO DYSPEPSIA Last administered on 05/15/18at 07:44; Start 05/09/18 at 16:15 Magnesium Hydroxide (Milk Of Magnesia) 2,400 mg PRN QHS PRN PO CONSTIPATION; Start 05/09/18 at 16:15 Alprazolam (Xanax) 0.5 mg PRN Q4HRS PRN PO ANXIETY / AGITATION Last administered on 05/15/18at 15:22; Start 05/09/18 at 17:15 Fluvoxamine Maleate (Luvox) 100 mg DAILY PO Last administered on 05/15/18at 07: 45; Start 05/10/18 at 09:00; Stop 05/15/18 at 09:01; Status DC Metoclopramide HCl (Reglan) 5 mg HS PO Last administered on 05/15/18at 19:31; Start 05/09/18 at 21:00 Mirtazapine (Remeron) 15 mg QHS PO Last administered on 05/15/18 19:31; Start 05/09/18 at 21:00 Oxycodone HCl (Roxicodone) 5 mg PRN Q12HR PRN PO severe pain Last administered on 05/13/18at 12:48; Start 05/09/18 at 17:15 Polyethylene Glycol (miraLAX) 17 gm DAILY PO Last administered on 05/15/18at 07: 45; Start 05/10/18 at 09:00 Quetiapine Fumarate (SEROquel) 37.5 mg TIDWMEALS PO Last administered on at 17:42; Start 05/10/18 at 08:00 Sucralfate (Carafate) 1 gm BID@0700,1600 PO Last administered on 05/15/18 17: 42; Start 05/10/18 at 07:00 Gabapentin (Neurontin) 100 mg TID PO Last administered on 05/12/18at 19:49; Start 05/09/18 at 21:00; Stop 05/12/18 at 21:13; Status DC Famotidine (Pepcid) 20 mg BID PO Last administered on 05/15/18at 19:31; Start at 21:00; Stop 05/17/18 at 13:47 Cephalexin HCl (Keflex) 250 mg STK-MED ONCE .ROUTE ; Start 05/09/18 at 15:01; Stop 05/12/18 at 17:33; Status DC Gabapentin (Neurontin) 100 mg BID92 PO Last administered on 05/15/18at 13:33; Start 05/13/18 at 09:00 Gabapentin (Neurontin) 200 mg QHS PO Last administered on 05/15/18at 19:31; Start 05/13/18 at 21:00 Fluvoxamine Maleate (Luvox) 100 mg DAILY PO ; Start 05/16/18 at 09:00 Fluvoxamine Maleate (Luvox) 25 mg DAILY PO ; Start 05/16/18 at 09:00 Active Scripts Active Reported D3-50 (Cholecalciferol (Vitamin D3)) 50,000 Unit Capsule 50,000 Unit PO WEEKLY Reglan (Metoclopramide Hcl) 10 Mg Tablet 5 Mg PO TIDAC Pantoprazole Sodium 40 Mg Tablet.dr 40 Mg PO DAILY Seroquel (Quetiapine Fumarate) 25 Mg Tablet 37.5 Mg PO TIDWMEALS Oxycodone Hcl 5 Mg Capsule 5 Mg PO PRN Q12HR PRN Fluvoxamine Maleate 50 Mg Tablet 100 Mg PO DAILY Miralax (Polyethylene Glycol 3350) 17 Gm Powd.pack 17 Gm PO DAILY Klor-Con M20 (Potassium Chloride) 20 Meq Tab.er.prt 20 Meq PO DAILY Sucralfate 1 Gm Tablet 1 Gm PO BID@0700,1600 Mirtazapine 15 Mg Tablet 15 Mg PO QHS Reglan (Metoclopramide Hcl) 10 Mg Tablet 5 Mg PO HS Alprazolam 0.5 Mg Tablet 0.5 Mg PO PRN Q4HRS PRN I have reviewed the current psychotropics carefully including drug interactions. Risk benefit ratio favors no change other than as noted in my dictated progress note. Diagnosis: Problems: (1) Anxiety disorder (2) Impulse control disorder (3) Major depressive disorder, recurrent episode (4) Panic disorder with agoraphobia and severe panic attacks (5) Obsessive compulsive disorder MELISSA BASHIR MD May 15, 2018 20:56
[2018-05-16] MEDS: ALPRAZolam 0.5 MG TABLET PO PRN (05:37)
[2018-05-16] MEDS: SUCRALFATE 1 GM TABLET. PO SCH ×2 (05:37→16:40)
[2018-05-16] MEDS: MAG HYDROX/AL HYDROX/SIMETH 30 ML ORAL.SUSP PO PRN ×2 (05:37→15:56)
[2018-05-16 05:59] VITALS: BP 104/59
[2018-05-16] MEDS: FAMOTIDINE 20 MG TABLET PO SCH ×2 (08:05→19:38)
[2018-05-16] MEDS: GABAPENTIN 100 MG CAPSULE. PO SCH ×3 (08:06→19:37)
[2018-05-16] MEDS: POLYETHYLENE GLYCOL 3350 17 GM PACKET. PO SCH (08:06)
[2018-05-16] MEDS: QUEtiapine 25 MG TABLET. PO SCH ×3 (08:06→16:40)
--- NOTE | 2018-05-16 10:30 | NUR ---
Behavior Intervention Response and Plan: BIRP Note: Behavior: Assumed Care of patient, patient located in Patient Room at shift change. Patient exhibited the following behavior Somatic, Anxious, Drowsy. Brief assessment on rounds of vital signs, medication needs, lab studies, and pain. Treatment plan problems 1-2. Intervention: Patient assessed and the following interventions initiated safety checks 15 Minute Checks Cognitive Assessment , Head to toe Assessment , Medications. Response: After interactions and interventions patient responded in the following manner, Drowsy , Withdrawn ,Anxious. Continue to assess behaviors and condition will continue to monitor throughout the shift as needed. Patient educated on ADL's, and hand hygiene. Plan: Continue to monitor Master Treatment Plan for patient's progress toward short term goals of Decreased Anxiety, No harm To self/ others, mcc goals to return to previous living setting vs placement. Continue to assess patient for changes in above assessment. Monitor for medication needs, pain, and safety concerns. Hourly rounding performed to ensure safe environment.
[2018-05-16] MEDS: POTASSIUM CHLORIDE 20 MEQ TABLET.ER. PO SCH (11:42)
[2018-05-16] MEDS: PANTOPRAZOLE 40 MG TABLET. PO SCH (11:42)
[2018-05-16] MEDS: METOCLOPRAMIDE 5 MG TABLET PO SCH ×3 (11:42→19:37)
[2018-05-16] MEDS: CHOLECALCIFEROL (VITAMIN D3) 50,000 UNIT CAPSULE PO SCH (11:42)
--- NOTE | 2018-05-16 15:00 | NUR ---
WEEKLY ACTIVITY THERAPY NOTE Date of Admission: 05/09/2018 Date of AT Assessment: 05/11/2018 Goal aimed: to increase leisure awareness and awareness of community resources upon discharge Initial goal: Pt. will participate in all activities focused on leisure education. Weekly progress towards goal: Did not achieve Group participation level: moderate to full Behaviors observed: Pt. is pleasant to speak with but often withdrawn from the group activities, typically participating in only one group per day, with 05/11 being a great exception: daily check-in (05/15), daily check-in (05/14), social hour, music relaxation group, bingabi (05/11), left center right game (05/10) Plan: no change to goal
[2018-05-16 15:50] VITALS: BP 116/79
[2018-05-16] MEDS: oxyCODONE IR 5 MG TABLET PO PRN (16:40)
--- NOTE | 2018-05-16 17:46 | NUR ---
Pt has had numerous somatic complaints throughout the day. Complaints of anxiety and stomach pain/constipation/gas. PRNs have been administered. Pt has been withdrawn, stating that she was "resting." Pt refused to participate in any groups.
[2018-05-16] MEDS: MIRTAZAPINE 15 MG TABLET PO SCH (19:38)
--- NOTE | 2018-05-16 20:00 | NUR ---
Behavior Intervention Response and Plan: BIRP Note: Behavior: Assumed Care of patient, patient located in Day Room at shift change. Patient exhibited the following behavior Calm, Withdrawn, Compliant. Brief assessment on rounds of vital signs, medication needs, lab studies, and pain. Treatment plan problems . Intervention: Patient assessed and the following interventions initiated safety checks 15 Minute Checks Cognitive Assessment , Head to toe Assessment , Medications. Response: After interactions and interventions patient responded in the following manner, Drowsy , Calm ,Compliant. Continue to assess behaviors and condition will continue to monitor throughout the shift as needed. Patient educated on ADL's, and hand hygiene. Plan: Continue to monitor Master Treatment Plan for patient's progress toward short term goals of Decreased Agitation, Decreased Anxiety, meterman goals to return to previous living setting vs placement. Continue to assess patient for changes in above assessment. Monitor for medication needs, pain, and safety concerns. Hourly rounding performed to ensure safe environment.
--- NOTE | 2018-05-16 20:36 | PDOC ---
Exam Note: Edwin Note: Please also refer to the separate dictated note~for this date of service dictated separately.~Patient seen individually. Discussed the patient with Nursing staff reviewed the chart.~Reviewed interim history and current functioning. Reviewed vital signs,~Labs/ Radiology~and current medications noted below. Continue current treatment with the changes noted in the dictated addendum note Assessment: Vital Signs: Vital Signs Date Time Temp Pulse Resp B/P (MAP) Pulse Ox O2 Delivery O2 Flow Rate FiO2 05/16/18 17:43 98 05/16/18 15:50 98.1 90 18 116/79 (91) 05/14/18 05:56 Room Air I&O Intake and Output 05/16/18 06:59 Intake Total 660 ml Balance 660 ml Intake Oral 660 ml Current Medications: Meds: Current Medications Cephalexin HCl (Keflex) 500 mg 1X ONCE PO Last administered on 05/09/18at 15:30 ; Start 05/09/18 at 15:30; Stop 05/09/18 at 15:36; Status DC Acetaminophen (Tylenol) 650 mg PRN Q6HRS PRN PO PAIN / TEMP; Start 05/09/18 at 16:15 Multi-Ingredient Ointment (Analgesic [place]) 1 declan PRN QID PRN TP MUSCLE PAIN; Start 05/09/18 at 16:15 Al Hydroxide/Mg Hydroxide (Mylanta Plus Xs) 15 ml PRN AFTMEALHC PRN PO DYSPEPSIA Last administered on 05/16/18at 15:56; Start 05/09/18 at 16:15 Magnesium Hydroxide (Milk Of Magnesia) 2,400 mg PRN QHS PRN PO CONSTIPATION; Start 05/09/18 at 16:15 Alprazolam (Xanax) 0.5 mg PRN Q4HRS PRN PO ANXIETY / AGITATION Last administered on 05/16/18at 05:37; Start 05/09/18 at 17:15 Fluvoxamine Maleate (Luvox) 100 mg DAILY PO Last administered on 05/15/18at 07: 45; Start 05/10/18 at 09:00; Stop 05/15/18 at 09:01; Status DC Metoclopramide HCl (Reglan) 5 mg HS PO Last administered on 05/16/18at 19:37; Start 05/09/18 at 21:00 Mirtazapine (Remeron) 15 mg QHS PO Last administered on 05/16/18 19:38; Start 05/09/18 at 21:00 Oxycodone HCl (Roxicodone) 5 mg PRN Q12HR PRN PO severe pain Last administered on 05/16/18 16:40; Start 05/09/18 at 17:15 Polyethylene Glycol (miraLAX) 17 gm DAILY PO Last administered on 05/16/18at 08: 06; Start 05/10/18 at 09:00 Quetiapine Fumarate (SEROquel) 37.5 mg TIDWMEALS PO Last administered on 16:40; Start 05/10/18 at 08:00 Sucralfate (Carafate) 1 gm BID@0700,1600 PO Last administered on 05/16/18 16: 40; Start 05/10/18 at 07:00 Gabapentin (Neurontin) 100 mg TID PO Last administered on 05/12/18at 19:49; Start 05/09/18 at 21:00; Stop 05/12/18 at 21:13; Status DC Famotidine (Pepcid) 20 mg BID PO Last administered on 05/16/18at 19:38; Start at 21:00; Stop 05/17/18 at 13:47 Cephalexin HCl (Keflex) 250 mg STK-MED ONCE .ROUTE ; Start 05/09/18 at 15:01; Stop 05/12/18 at 17:33; Status DC Gabapentin (Neurontin) 100 mg BID92 PO Last administered on 05/16/18at 16:40; Start 05/13/18 at 09:00; Stop 05/16/18 at 19:18; Status DC Gabapentin (Neurontin) 200 mg QHS PO Last administered on 05/15/18at 19:31; Start 05/13/18 at 21:00; Stop 05/16/18 at 19:18; Status DC Fluvoxamine Maleate (Luvox) 100 mg DAILY PO Last administered on 05/16/18 08: 09; Start 05/16/18 at 09:00 Fluvoxamine Maleate (Luvox) 25 mg DAILY PO Last administered on 05/16/18at 08:09 ; Start 05/16/18 at 09:00 Metoclopramide HCl (Reglan) 5 mg TIDAC PO Last administered on 05/16/18at 16:40 ; Start 05/16/18 at 11:30 Vitamin D (Vitamin D3) 50,000 unit WEEKLY PO Last administered on 05/16/18at 11: 42; Start 05/16/18 at 11:30 Potassium Chloride (Klor-Con) 20 meq DAILY PO Last administered on 05/16/18at 11 :42; Start 05/16/18 at 11:30 Pantoprazole Sodium (Protonix) 40 mg DAILYAC PO Last administered on 05/16/18at 11:42; Start 05/16/18 at 11:30 Gabapentin (Neurontin) 100 mg DAILY PO ; Start 05/17/18 at 09:00 Gabapentin (Neurontin) 200 mg BID@1400,2100 PO Last administered on 05/16/18at 19:37; Start 05/16/18 at 21:00 Active Scripts Active Reported D3-50 (Cholecalciferol (Vitamin D3)) 50,000 Unit Capsule 50,000 Unit PO WEEKLY Reglan (Metoclopramide Hcl) 10 Mg Tablet 5 Mg PO TIDAC Pantoprazole Sodium 40 Mg Tablet.dr 40 Mg PO DAILY Seroquel (Quetiapine Fumarate) 25 Mg Tablet 37.5 Mg PO TIDWMEALS Oxycodone Hcl 5 Mg Capsule 5 Mg PO PRN Q12HR PRN Fluvoxamine Maleate 50 Mg Tablet 100 Mg PO DAILY Miralax (Polyethylene Glycol 3350) 17 Gm Powd.pack 17 Gm PO DAILY Klor-Con M20 (Potassium Chloride) 20 Meq Tab.er.prt 20 Meq PO DAILY Sucralfate 1 Gm Tablet 1 Gm PO BID@0700,1600 Mirtazapine 15 Mg Tablet 15 Mg PO QHS Reglan (Metoclopramide Hcl) 10 Mg Tablet 5 Mg PO HS Alprazolam 0.5 Mg Tablet 0.5 Mg PO PRN Q4HRS PRN I have reviewed the current psychotropics carefully including drug interactions. Risk benefit ratio favors no change other than as noted in my dictated progress note. Diagnosis: Problems: (1) Anxiety disorder (2) Impulse control disorder (3) Major depressive disorder, recurrent episode (4) Panic disorder with agoraphobia and severe panic attacks (5) Obsessive compulsive disorder MELISSA BASHIR MD May 16, 2018 20:36
--- NOTE | 2018-05-16 23:06 | PN ---
DATE: 05/15/2018 PSYCHIATRIC PROGRESS NOTE This is a late entry for 05/15/2018, covers elements not covered in my initial note. SUBJECTIVE: I met with the patient in the evening. The patient slept 5-1/2 hours previous evening. She has been quite anxious, wanting Xanax, received it twice. At times, she complains of sedation. REVIEW OF SYSTEMS: She has vague somatic symptoms, but no further CV, , GI, pulmonary, eye system symptoms on review. MENTAL STATUS EXAM: Reasonably oriented. Speech is coherent, somewhat pressured at times. Abstraction fair, computation impaired, language function intact, attention span short. Mood and affect somewhat anxious, labile. LABORATORY DATA: Reviewed. IMPRESSION: Unchanged from initial note. PLAN: Continue psychotropics mentioned in my initial note. MAN Scooter BASHIR MD DR: CARRILLO/praful JOB#: [id number] / [id number]
[2018-05-17] MEDS: ALPRAZolam 0.5 MG TABLET PO PRN ×3 (05:23→16:29)
[2018-05-17] MEDS: SUCRALFATE 1 GM TABLET. PO SCH ×2 (05:24→16:29)
[2018-05-17] MEDS: MAG HYDROX/AL HYDROX/SIMETH 30 ML ORAL.SUSP PO PRN (05:25)
[2018-05-17 05:33] VITALS: BP 109/67
[2018-05-17] MEDS: POTASSIUM CHLORIDE 20 MEQ TABLET.ER. PO SCH (08:05)
[2018-05-17] MEDS: PANTOPRAZOLE 40 MG TABLET. PO SCH (08:06)
[2018-05-17] MEDS: METOCLOPRAMIDE 5 MG TABLET PO SCH ×4 (08:06→19:48)
[2018-05-17] MEDS: FAMOTIDINE 20 MG TABLET PO SCH (08:06)
[2018-05-17] MEDS: QUEtiapine 25 MG TABLET. PO SCH ×3 (08:06→16:30)
[2018-05-17] MEDS: POLYETHYLENE GLYCOL 3350 17 GM PACKET. PO SCH (08:06)
[2018-05-17] MEDS: GABAPENTIN 100 MG CAPSULE. PO SCH ×3 (08:08→19:48)
[2018-05-17 16:12] VITALS: BP 105/56
[2018-05-17] MEDS: MIRTAZAPINE 15 MG TABLET PO SCH (19:48)
--- NOTE | 2018-05-17 20:34 | PDOC ---
Exam Note: Edwin Note: Please also refer to the separate dictated note~for this date of service dictated separately.~Patient seen individually. Discussed the patient with Nursing staff reviewed the chart.~Reviewed interim history and current functioning. Reviewed vital signs,~Labs/ Radiology~and current medications noted below. Continue current treatment with the changes noted in the dictated addendum note Assessment: Vital Signs: Vital Signs Date Time Temp Pulse Resp B/P (MAP) Pulse Ox O2 Delivery O2 Flow Rate FiO2 05/17/18 16:12 99.2 73 18 105/56 (72) 97 Room Air I&O Intake and Output 05/17/18 06:59 Intake Total 420 ml Balance 420 ml Intake Oral 420 ml Current Medications: Meds: Current Medications Cephalexin HCl (Keflex) 500 mg 1X ONCE PO Last administered on 05/09/18at 15:30 ; Start 05/09/18 at 15:30; Stop 05/09/18 at 15:36; Status DC Acetaminophen (Tylenol) 650 mg PRN Q6HRS PRN PO PAIN / TEMP; Start 05/09/18 at 16:15 Multi-Ingredient Ointment (Analgesic [place]) 1 declan PRN QID PRN TP MUSCLE PAIN; Start 05/09/18 at 16:15 Al Hydroxide/Mg Hydroxide (Mylanta Plus Xs) 15 ml PRN AFTMEALHC PRN PO DYSPEPSIA Last administered on 05/17/18at 05:25; Start 05/09/18 at 16:15 Magnesium Hydroxide (Milk Of Magnesia) 2,400 mg PRN QHS PRN PO CONSTIPATION; Start 05/09/18 at 16:15 Alprazolam (Xanax) 0.5 mg PRN Q4HRS PRN PO ANXIETY / AGITATION Last administered on 05/17/18at 16:29; Start 05/09/18 at 17:15 Fluvoxamine Maleate (Luvox) 100 mg DAILY PO Last administered on 05/15/18at 07: 45; Start 05/10/18 at 09:00; Stop 05/15/18 at 09:01; Status DC Metoclopramide HCl (Reglan) 5 mg HS PO Last administered on 05/17/18at 19:48; Start 05/09/18 at 21:00 Mirtazapine (Remeron) 15 mg QHS PO Last administered on 05/17/18 19:48; Start 05/09/18 at 21:00 Oxycodone HCl (Roxicodone) 5 mg PRN Q12HR PRN PO severe pain Last administered on 05/16/18 16:40; Start 05/09/18 at 17:15 Polyethylene Glycol (miraLAX) 17 gm DAILY PO Last administered on 05/17/18at 08: 06; Start 05/10/18 at 09:00 Quetiapine Fumarate (SEROquel) 37.5 mg TIDWMEALS PO Last administered on 16:30; Start 05/10/18 at 08:00 Sucralfate (Carafate) 1 gm BID@0700,1600 PO Last administered on 05/17/18 16: 29; Start 05/10/18 at 07:00 Gabapentin (Neurontin) 100 mg TID PO Last administered on 05/12/18at 19:49; Start 05/09/18 at 21:00; Stop 05/12/18 at 21:13; Status DC Famotidine (Pepcid) 20 mg BID PO Last administered on 05/17/18at 08:06; Start at 21:00; Stop 05/17/18 at 13:47; Status DC Cephalexin HCl (Keflex) 250 mg STK-MED ONCE .ROUTE ; Start 05/09/18 at 15:01; Stop 05/12/18 at 17:33; Status DC Gabapentin (Neurontin) 100 mg BID92 PO Last administered on 05/16/18 16:40; Start 05/13/18 at 09:00; Stop 05/16/18 at 19:18; Status DC Gabapentin (Neurontin) 200 mg QHS PO Last administered on 05/15/18at 19:31; Start 05/13/18 at 21:00; Stop 05/16/18 at 19:18; Status DC Fluvoxamine Maleate (Luvox) 100 mg DAILY PO Last administered on 05/17/18at 08: 05; Start 05/16/18 at 09:00 Fluvoxamine Maleate (Luvox) 25 mg DAILY PO Last administered on 05/17/18at 08:05 ; Start 05/16/18 at 09:00 Metoclopramide HCl (Reglan) 5 mg TIDAC PO Last administered on 05/17/18at 16:29 ; Start 05/16/18 at 11:30 Vitamin D (Vitamin D3) 50,000 unit WEEKLY PO Last administered on 05/16/18at 11: 42; Start 05/16/18 at 11:30 Potassium Chloride (Klor-Con) 20 meq DAILY PO Last administered on 05/17/18at 08 :05; Start 05/16/18 at 11:30 Pantoprazole Sodium (Protonix) 40 mg DAILYAC PO Last administered on 05/17/18at 08:06; Start 05/16/18 at 11:30 Gabapentin (Neurontin) 100 mg DAILY PO Last administered on 05/17/18 08:08; Start 05/17/18 at 09:00 Gabapentin (Neurontin) 200 mg BID@1400,2100 PO Last administered on 05/17/18at 19:48; Start 05/16/18 at 21:00 Active Scripts Active Reported D3-50 (Cholecalciferol (Vitamin D3)) 50,000 Unit Capsule 50,000 Unit PO WEEKLY Reglan (Metoclopramide Hcl) 10 Mg Tablet 5 Mg PO TIDAC Pantoprazole Sodium 40 Mg Tablet.dr 40 Mg PO DAILY Seroquel (Quetiapine Fumarate) 25 Mg Tablet 37.5 Mg PO TIDWMEALS Oxycodone Hcl 5 Mg Capsule 5 Mg PO PRN Q12HR PRN Fluvoxamine Maleate 50 Mg Tablet 100 Mg PO DAILY Miralax (Polyethylene Glycol 3350) 17 Gm Powd.pack 17 Gm PO DAILY Klor-Con M20 (Potassium Chloride) 20 Meq Tab.er.prt 20 Meq PO DAILY Sucralfate 1 Gm Tablet 1 Gm PO BID@0700,1600 Mirtazapine 15 Mg Tablet 15 Mg PO QHS Reglan (Metoclopramide Hcl) 10 Mg Tablet 5 Mg PO HS Alprazolam 0.5 Mg Tablet 0.5 Mg PO PRN Q4HRS PRN I have reviewed the current psychotropics carefully including drug interactions. Risk benefit ratio favors no change other than as noted in my dictated progress note. Diagnosis: Problems: (1) Anxiety disorder (2) Impulse control disorder (3) Major depressive disorder, recurrent episode (4) Panic disorder with agoraphobia and severe panic attacks (5) Obsessive compulsive disorder MELISSA BASHIR MD May 17, 2018 20:34
--- NOTE | 2018-05-17 22:08 | NUR ---
Behavior Intervention Response and Plan: BIRP Note: Behavior: Assumed Care of patient, patient located in Hallway at shift change. Patient exhibited the following behavior Calm, Interactive, Compliant. Brief assessment on rounds of vital signs, medication needs, lab studies, and pain. Treatment plan problems 1-2. Intervention: Patient assessed and the following interventions initiated safety checks 15 Minute Checks Cognitive Assessment , Head to toe Assessment , Medications. Response: After interactions and interventions patient responded in the following manner, Drowsy , Cooperative. Continue to assess behaviors and condition will continue to monitor throughout the shift as needed. Patient educated on ADL's, and hand hygiene. 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 Continue to assess patient for changes in above assessment. Monitor for medication needs, pain, and safety concerns. Hourly rounding performed to ensure safe environment.
[2018-05-18] MEDS: SUCRALFATE 1 GM TABLET. PO SCH ×2 (05:22→17:17)
[2018-05-18 06:20] VITALS: BP 116/63
[2018-05-18] MEDS: PANTOPRAZOLE 40 MG TABLET. PO SCH (07:07)
[2018-05-18] MEDS: METOCLOPRAMIDE 5 MG TABLET PO SCH ×4 (07:08→19:33)
[2018-05-18] MEDS: GABAPENTIN 100 MG CAPSULE. PO SCH ×3 (08:05→19:35)
[2018-05-18] MEDS: POTASSIUM CHLORIDE 20 MEQ TABLET.ER. PO SCH (08:06)
[2018-05-18] MEDS: POLYETHYLENE GLYCOL 3350 17 GM PACKET. PO SCH (08:06)
[2018-05-18] MEDS: QUEtiapine 25 MG TABLET. PO SCH ×3 (08:06→17:17)
--- NOTE | 2018-05-18 09:00 | NUR ---
Behavior Intervention Response and Plan: BIRP Note: Behavior: Assumed Care of patient, patient located in Patient Room at shift change. Patient exhibited the following behavior Disorganized, Compulsive, Withdrawn. Brief assessment on rounds of vital signs, medication needs, lab studies, and pain. Treatment plan problems 1 & 2. Intervention: Patient assessed and the following interventions initiated safety checks 15 Minute Checks Cognitive Assessment , Head to toe Assessment , Medications. Response: After interactions and interventions patient responded in the following manner, Calm , Appropriate ,Compliant. Continue to assess behaviors and condition will continue to monitor throughout the shift as needed. Patient educated on ADL's, and hand hygiene. Plan: Continue to monitor Master Treatment Plan for patient's progress toward short term goals of Decreased Anxiety, No harm To self/ others, half-way goals to return to previous living setting vs placement. Continue to assess patient for changes in above assessment. Monitor for medication needs, pain, and safety concerns. Hourly rounding performed to ensure safe environment.
[2018-05-18] MEDS: ALPRAZolam 0.5 MG TABLET PO PRN ×2 (09:50→15:10)
--- NOTE | 2018-05-18 09:50 | NUR ---
Patient complains of increased anxiety, requests prn med which was provided. Will continue to monitor.
[2018-05-18] MEDS: MAG HYDROX/AL HYDROX/SIMETH 30 ML ORAL.SUSP PO PRN ×2 (12:27→19:33)
--- NOTE | 2018-05-18 15:10 | NUR ---
Patient again complains of increased anxiety, prn med provided per eMAR, will continue to monitor.
[2018-05-18 15:46] VITALS: BP 91/59
[2018-05-18] MEDS: MIRTAZAPINE 15 MG TABLET PO SCH (19:33)
--- NOTE | 2018-05-18 20:00 | NUR ---
Behavior Intervention Response and Plan: BIRP Note: Behavior: Assumed Care of patient, patient located in Hallway at shift change. Patient exhibited the following behavior Calm, Cooperative, Compliant. Brief assessment on rounds of vital signs, medication needs, lab studies, and pain. Treatment plan problems . Intervention: Patient assessed and the following interventions initiated safety checks 15 Minute Checks Cognitive Assessment , Head to toe Assessment , Medications. Response: After interactions and interventions patient responded in the following manner, Cooperative , Cooperative ,Calm. Continue to assess behaviors and condition will continue to monitor throughout the shift as needed. Patient educated on ADL's, and hand hygiene. Plan: Continue to monitor Master Treatment Plan for patient's progress toward short term goals of No harm To self/ others, Medication Compliance, snf goals to return to previous living setting vs placement. Continue to assess patient for changes in above assessment. Monitor for medication needs, pain, and safety concerns. Hourly rounding performed to ensure safe environment.
--- NOTE | 2018-05-18 20:43 | PDOC ---
Exam Note: Edwin Note: Please also refer to the separate dictated note~for this date of service dictated separately.~Patient seen individually. Discussed the patient with Nursing staff reviewed the chart.~Reviewed interim history and current functioning. Reviewed vital signs,~Labs/ Radiology~and current medications noted below. Continue current treatment with the changes noted in the dictated addendum note Assessment: Vital Signs: Vital Signs Date Time Temp Pulse Resp B/P (MAP) Pulse Ox O2 Delivery O2 Flow Rate FiO2 05/18/18 15:46 98.3 90 18 91/59 (70) 96 05/18/18 06:20 Room Air I&O Intake and Output 05/18/18 07:00 Intake Total 720 ml Balance 720 ml Intake Oral 720 ml # Bowel Movements 1 Current Medications: Meds: Current Medications Cephalexin HCl (Keflex) 500 mg 1X ONCE PO Last administered on 05/09/18at 15:30 ; Start 05/09/18 at 15:30; Stop 05/09/18 at 15:36; Status DC Acetaminophen (Tylenol) 650 mg PRN Q6HRS PRN PO PAIN / TEMP; Start 05/09/18 at 16:15 Multi-Ingredient Ointment (Analgesic [place]) 1 declan PRN QID PRN TP MUSCLE PAIN; Start 05/09/18 at 16:15 Al Hydroxide/Mg Hydroxide (Mylanta Plus Xs) 15 ml PRN AFTMEALHC PRN PO DYSPEPSIA Last administered on 05/18/18at 19:33; Start 05/09/18 at 16:15 Magnesium Hydroxide (Milk Of Magnesia) 2,400 mg PRN QHS PRN PO CONSTIPATION; Start 05/09/18 at 16:15 Alprazolam (Xanax) 0.5 mg PRN Q4HRS PRN PO ANXIETY / AGITATION Last administered on 05/18/18at 15:10; Start 05/09/18 at 17:15 Fluvoxamine Maleate (Luvox) 100 mg DAILY PO Last administered on 05/15/18at 07: 45; Start 05/10/18 at 09:00; Stop 05/15/18 at 09:01; Status DC Metoclopramide HCl (Reglan) 5 mg HS PO Last administered on 05/18/18at 19:33; Start 05/09/18 at 21:00 Mirtazapine (Remeron) 15 mg QHS PO Last administered on 05/18/18 19:33; Start 05/09/18 at 21:00 Oxycodone HCl (Roxicodone) 5 mg PRN Q12HR PRN PO severe pain Last administered on 05/16/18at 16:40; Start 05/09/18 at 17:15 Polyethylene Glycol (miraLAX) 17 gm DAILY PO Last administered on 05/18/18 08: 06; Start 05/10/18 at 09:00 Quetiapine Fumarate (SEROquel) 37.5 mg TIDWMEALS PO Last administered on 17:17; Start 05/10/18 at 08:00 Sucralfate (Carafate) 1 gm BID@0700,1600 PO Last administered on 05/18/18 17: 17; Start 05/10/18 at 07:00 Gabapentin (Neurontin) 100 mg TID PO Last administered on 05/12/18at 19:49; Start 05/09/18 at 21:00; Stop 05/12/18 at 21:13; Status DC Famotidine (Pepcid) 20 mg BID PO Last administered on 05/17/18at 08:06; Start at 21:00; Stop 05/17/18 at 13:47; Status DC Cephalexin HCl (Keflex) 250 mg STK-MED ONCE .ROUTE ; Start 05/09/18 at 15:01; Stop 05/12/18 at 17:33; Status DC Gabapentin (Neurontin) 100 mg BID92 PO Last administered on 05/16/18at 16:40; Start 05/13/18 at 09:00; Stop 05/16/18 at 19:18; Status DC Gabapentin (Neurontin) 200 mg QHS PO Last administered on 05/15/18at 19:31; Start 05/13/18 at 21:00; Stop 05/16/18 at 19:18; Status DC Fluvoxamine Maleate (Luvox) 100 mg DAILY PO Last administered on 05/18/18at 08: 05; Start 05/16/18 at 09:00 Fluvoxamine Maleate (Luvox) 25 mg DAILY PO Last administered on 05/18/18at 08:05 ; Start 05/16/18 at 09:00 Metoclopramide HCl (Reglan) 5 mg TIDAC PO Last administered on 05/18/18 17:17 ; Start 05/16/18 at 11:30 Vitamin D (Vitamin D3) 50,000 unit WEEKLY PO Last administered on 05/16/18at 11: 42; Start 05/16/18 at 11:30 Potassium Chloride (Klor-Con) 20 meq DAILY PO Last administered on 05/18/18 08 :06; Start 05/16/18 at 11:30 Pantoprazole Sodium (Protonix) 40 mg DAILYAC PO Last administered on 05/18/18 07:07; Start 05/16/18 at 11:30 Gabapentin (Neurontin) 100 mg DAILY PO Last administered on 05/18/18 08:05; Start 05/17/18 at 09:00 Gabapentin (Neurontin) 200 mg BID@1400,2100 PO Last administered on 05/18/18 19:35; Start 05/16/18 at 21:00 Active Scripts Active Reported D3-50 (Cholecalciferol (Vitamin D3)) 50,000 Unit Capsule 50,000 Unit PO WEEKLY Reglan (Metoclopramide Hcl) 10 Mg Tablet 5 Mg PO TIDAC Pantoprazole Sodium 40 Mg Tablet.dr 40 Mg PO DAILY Seroquel (Quetiapine Fumarate) 25 Mg Tablet 37.5 Mg PO TIDWMEALS Oxycodone Hcl 5 Mg Capsule 5 Mg PO PRN Q12HR PRN Fluvoxamine Maleate 50 Mg Tablet 100 Mg PO DAILY Miralax (Polyethylene Glycol 3350) 17 Gm Powd.pack 17 Gm PO DAILY Klor-Con M20 (Potassium Chloride) 20 Meq Tab.er.prt 20 Meq PO DAILY Sucralfate 1 Gm Tablet 1 Gm PO BID@0700,1600 Mirtazapine 15 Mg Tablet 15 Mg PO QHS Reglan (Metoclopramide Hcl) 10 Mg Tablet 5 Mg PO HS Alprazolam 0.5 Mg Tablet 0.5 Mg PO PRN Q4HRS PRN I have reviewed the current psychotropics carefully including drug interactions. Risk benefit ratio favors no change other than as noted in my dictated progress note. Diagnosis: Problems: (1) Anxiety disorder (2) Impulse control disorder (3) Major depressive disorder, recurrent episode (4) Panic disorder with agoraphobia and severe panic attacks (5) Obsessive compulsive disorder MELISSA BASHIR MD May 18, 2018 20:43
[2018-05-18] MEDS: oxyCODONE IR 5 MG TABLET PO PRN (21:07)
[2018-05-19 05:39] VITALS: BP 97/61
[2018-05-19] MEDS: SUCRALFATE 1 GM TABLET. PO SCH ×2 (06:12→17:52)
--- NOTE | 2018-05-19 06:33 | PN ---
DATE: 05/16/2018 This is a late entry 05/16/2018 covers elements not covered in my initial note. SUBJECTIVE: I met with the patient in the evening. The patient slept 7-1/4 hours previous evening, remains anxious, fixated on some GI somatic symptoms. Previously, she had cardiac symptoms, but denied any chest or cardiac symptoms on 05/16/2018. Received some OxyContin for her GI pain, was better after this. No CV, , pulmonary, eye system symptoms on review. MENTAL STATUS EXAM: Reasonably oriented. Speech coherent, rapid at times, quite anxious. Abstraction fair, computation impaired, language function intact, attention span short. Mood and affect remain somewhat anxious, labile. LABORATORY DATA: Reviewed. IMPRESSION: Unchanged from initial note. PLAN: Increase Neurontin to 200 mg. Continue rest psychotropics unchanged from initial note. MAN Scooter BASHIR MD DR: CARRILLO/praful JOB#: [id number] / [id number]
--- NOTE | 2018-05-19 06:34 | PN ---
DATE: 05/17/2018 This is a late entry, 05/17/2018, covers the elements not covered in my initial note. SUBJECTIVE: I met with the patient in the evening in her room and also with Sumit, her significant other who was in the room with her. The patient was also staffed at a treatment team meeting with the entire team morning of 05/17/2018. The patient remains anxious, frequently somatically preoccupied, but perhaps a little better, complains of some daytime sedation. She has vague GI symptoms. REVIEW OF SYSTEMS: No CV, , pulmonary, eye system symptoms on review. MENTAL STATUS EXAM: Reasonably oriented. Speech coherent, somewhat pressured. Abstraction fair, computation impaired, language function intact, attention span short. Mood and affect remain somewhat anxious, labile. LABORATORY DATA: Reviewed. IMPRESSION: Unchanged from initial note. PLAN: Continue psychotropics including the increased Neurontin. Adjust as clinically indicated. MELISSA BASHIR MD DR: CARRILLO/praful JOB#: [id number] / [id number]
[2018-05-19] MEDS: QUEtiapine 25 MG TABLET. PO SCH ×3 (07:29→17:52)
[2018-05-19] MEDS: PANTOPRAZOLE 40 MG TABLET. PO SCH (07:29)
[2018-05-19] MEDS: POTASSIUM CHLORIDE 20 MEQ TABLET.ER. PO SCH (07:29)
[2018-05-19] MEDS: GABAPENTIN 100 MG CAPSULE. PO SCH ×3 (07:30→20:58)
[2018-05-19] MEDS: METOCLOPRAMIDE 5 MG TABLET PO SCH ×4 (07:30→20:58)
[2018-05-19] MEDS: POLYETHYLENE GLYCOL 3350 17 GM PACKET. PO SCH (07:30)
[2018-05-19] MEDS: ALPRAZolam 0.5 MG TABLET PO PRN ×2 (07:57→21:00)
--- NOTE | 2018-05-19 09:39 | NUR ---
Behavior Intervention Response and Plan: BIRP Note: Behavior: Assumed Care of patient, patient located in Patient Room at shift change. Patient exhibited the following behavior Attention Seeking, Medication Seeking, Withdrawn. Brief assessment on rounds of vital signs, medication needs, lab studies, and pain. Treatment plan problems . Intervention: Patient assessed and the following interventions initiated safety checks 15 Minute Checks Cognitive Assessment , Head to toe Assessment , Medications. Response: After interactions and interventions patient responded in the following manner, Compliant , Anxious ,Withdrawn. Continue to assess behaviors and condition will continue to monitor throughout the shift as needed. Patient educated on ADL's, and hand hygiene. Plan: Continue to monitor Master Treatment Plan for patient's progress toward short term goals of Decreased Anxiety, Improved Mood, senior living goals to return to previous living setting vs placement. Continue to assess patient for changes in above assessment. Monitor for medication needs, pain, and safety concerns. Hourly rounding performed to ensure safe environment.
[2018-05-19 15:54] VITALS: BP 113/70
--- NOTE | 2018-05-19 16:37 | NUR ---
pt has been anxious on and off today. sam x2. spoke with dr yap and pharmacy and had meds so they were scheduled qid while awake. Spoke with when he came about providing pt with audio books and headphones to occupy pt. states they have tried numerous things to help pt not to perseverate on somatic ideas. 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 Pt doesn't want these things.
[2018-05-19] MEDS: MIRTAZAPINE 15 MG TABLET PO SCH (20:59)
[2018-05-19] MEDS: ACETAMINOPHEN 325 MG TABLET PO PRN (21:00)
--- NOTE | 2018-05-19 22:58 | PDOC ---
Exam Note: Edwin Note: Please also refer to the separate dictated note~for this date of service dictated separately.~Patient seen individually. Discussed the patient with Nursing staff reviewed the chart.~Reviewed interim history and current functioning. Reviewed vital signs,~Labs/ Radiology~and current medications noted below. Continue current treatment with the changes noted in the dictated addendum note Assessment: Vital Signs: Vital Signs Date Time Temp Pulse Resp B/P (MAP) Pulse Ox O2 Delivery O2 Flow Rate FiO2 05/19/18 15:54 98.1 95 18 113/70 (84) 97 Room Air I&O Intake and Output 05/19/18 06:59 Intake Total 720 ml Balance 720 ml Intake Oral 720 ml Current Medications: Meds: Current Medications Cephalexin HCl (Keflex) 500 mg 1X ONCE PO Last administered on 05/09/18at 15:30 ; Start 05/09/18 at 15:30; Stop 05/09/18 at 15:36; Status DC Acetaminophen (Tylenol) 650 mg PRN Q6HRS PRN PO PAIN / TEMP Last administered on 05/19/18at 21:00; Start 05/09/18 at 16:15 Multi-Ingredient Ointment (Analgesic [place]) 1 declan PRN QID PRN TP MUSCLE PAIN; Start 05/09/18 at 16:15 Al Hydroxide/Mg Hydroxide (Mylanta Plus Xs) 15 ml PRN AFTMEALHC PRN PO DYSPEPSIA Last administered on 05/18/18at 19:33; Start 05/09/18 at 16:15 Magnesium Hydroxide (Milk Of Magnesia) 2,400 mg PRN QHS PRN PO CONSTIPATION; Start 05/09/18 at 16:15 Alprazolam (Xanax) 0.5 mg PRN Q4HRS PRN PO ANXIETY / AGITATION Last administered on 05/19/18at 21:00; Start 05/09/18 at 17:15 Fluvoxamine Maleate (Luvox) 100 mg DAILY PO Last administered on 05/15/18at 07: 45; Start 05/10/18 at 09:00; Stop 05/15/18 at 09:01; Status DC Metoclopramide HCl (Reglan) 5 mg HS PO Last administered on 05/19/18at 20:58; Start 05/09/18 at 21:00 Mirtazapine (Remeron) 15 mg QHS PO Last administered on 05/19/18at 20:59; Start 05/09/18 at 21:00 Oxycodone HCl (Roxicodone) 5 mg PRN Q12HR PRN PO severe pain Last administered on 05/18/18at 21:07; Start 05/09/18 at 17:15 Polyethylene Glycol (miraLAX) 17 gm DAILY PO Last administered on 05/19/18at 07: 30; Start 05/10/18 at 09:00; Stop 05/19/18 at 14:36; Status DC Quetiapine Fumarate (SEROquel) 37.5 mg TIDWMEALS PO Last administered on at 13:30; Start 05/10/18 at 08:00; Stop 05/19/18 at 14:37; Status DC Sucralfate (Carafate) 1 gm BID@0700,1600 PO Last administered on 05/19/18at 06: 12; Start 05/10/18 at 07:00; Stop 05/19/18 at 14:37; Status DC Gabapentin (Neurontin) 100 mg TID PO Last administered on 05/12/18at 19:49; Start 05/09/18 at 21:00; Stop 05/12/18 at 21:13; Status DC Famotidine (Pepcid) 20 mg BID PO Last administered on 05/17/18at 08:06; Start at 21:00; Stop 05/17/18 at 13:47; Status DC Cephalexin HCl (Keflex) 250 mg STK-MED ONCE .ROUTE ; Start 05/09/18 at 15:01; Stop 05/12/18 at 17:33; Status DC Gabapentin (Neurontin) 100 mg BID92 PO Last administered on 05/16/18at 16:40; Start 05/13/18 at 09:00; Stop 05/16/18 at 19:18; Status DC Gabapentin (Neurontin) 200 mg QHS PO Last administered on 05/15/18at 19:31; Start 05/13/18 at 21:00; Stop 05/16/18 at 19:18; Status DC Fluvoxamine Maleate (Luvox) 100 mg DAILY PO Last administered on 05/19/18at 07: 30; Start 05/16/18 at 09:00; Stop 05/19/18 at 14:32; Status DC Fluvoxamine Maleate (Luvox) 25 mg DAILY PO Last administered on 05/19/18at 07:29 ; Start 05/16/18 at 09:00; Stop 05/19/18 at 14:33; Status DC Metoclopramide HCl (Reglan) 5 mg TIDAC PO Last administered on 05/19/18at 13:30 ; Start 05/16/18 at 11:30; Stop 05/19/18 at 14:35; Status DC Vitamin D (Vitamin D3) 50,000 unit WEEKLY PO Last administered on 05/16/18at 11: 42; Start 05/16/18 at 11:30 Potassium Chloride (Klor-Con) 20 meq DAILY PO Last administered on 05/19/18at 07 :29; Start 05/16/18 at 11:30; Stop 05/19/18 at 14:36; Status DC Pantoprazole Sodium (Protonix) 40 mg DAILYAC PO Last administered on 05/19/18at 07:29; Start 05/16/18 at 11:30; Stop 05/19/18 at 14:36; Status DC Gabapentin (Neurontin) 100 mg DAILY PO Last administered on 05/19/18at 07:30; Start 05/17/18 at 09:00; Stop 05/19/18 at 14:34; Status DC Gabapentin (Neurontin) 200 mg BID@1400,2100 PO Last administered on 05/19/18at 13:31; Start 05/16/18 at 21:00; Stop 05/19/18 at 14:34; Status DC Fluvoxamine Maleate (Luvox) 100 mg DAILY07 PO ; Start 05/20/18 at 07:00 Fluvoxamine Maleate (Luvox) 25 mg DAILY07 PO ; Start 05/20/18 at 07:00 Gabapentin (Neurontin) 100 mg DAILY07 PO ; Start 05/20/18 at 07:00 Gabapentin (Neurontin) 200 mg BID@1300,2100 PO Last administered on 05/19/18at 20:58; Start 05/19/18 at 21:00 Metoclopramide HCl (Reglan) 5 mg TID@0700,1300,1700 PO Last administered on at 17:52; Start 05/19/18 at 17:00 Pantoprazole Sodium (Protonix) 40 mg DAILY07 PO ; Start 05/20/18 at 07:00 Potassium Chloride (Klor-Con) 20 meq DAILY07 PO ; Start 05/20/18 at 07:00 Polyethylene Glycol (miraLAX) 17 gm DAILY07 PO ; Start 05/20/18 at 07:00 Quetiapine Fumarate (SEROquel) 37.5 mg TID@0700,1300,1700 PO Last administered on 05/19/18at 17:52; Start 05/19/18 at 17:00 Sucralfate (Carafate) 1 gm BID@0700,1700 PO Last administered on 05/19/18at 17: 52; Start 05/19/18 at 17:00 Active Scripts Active Reported D3-50 (Cholecalciferol (Vitamin D3)) 50,000 Unit Capsule 50,000 Unit PO WEEKLY Reglan (Metoclopramide Hcl) 10 Mg Tablet 5 Mg PO TIDAC Pantoprazole Sodium 40 Mg Tablet.dr 40 Mg PO DAILY Seroquel (Quetiapine Fumarate) 25 Mg Tablet 37.5 Mg PO TIDWMEALS Oxycodone Hcl 5 Mg Capsule 5 Mg PO PRN Q12HR PRN Fluvoxamine Maleate 50 Mg Tablet 100 Mg PO DAILY Miralax (Polyethylene Glycol 3350) 17 Gm Powd.pack 17 Gm PO DAILY Klor-Con M20 (Potassium Chloride) 20 Meq Tab.er.prt 20 Meq PO DAILY Sucralfate 1 Gm Tablet 1 Gm PO BID@0700,1600 Mirtazapine 15 Mg Tablet 15 Mg PO QHS Reglan (Metoclopramide Hcl) 10 Mg Tablet 5 Mg PO HS Alprazolam 0.5 Mg Tablet 0.5 Mg PO PRN Q4HRS PRN I have reviewed the current psychotropics carefully including drug interactions. Risk benefit ratio favors no change other than as noted in my dictated progress note. Diagnosis: Problems: (1) Anxiety disorder (2) Impulse control disorder (3) Major depressive disorder, recurrent episode (4) Panic disorder with agoraphobia and severe panic attacks (5) Obsessive compulsive disorder MELISSA BASHIR MD May 19, 2018 22:58
--- NOTE | 2018-05-19 23:32 | NUR ---
Pt is in habit of asking this RN how soon she can have her Xanax each day and then coming up at that time stating anxiety and asking for her Xanax.
[2018-05-20 05:32] VITALS: BP 113/63
--- NOTE | 2018-05-20 05:50 | PN ---
DATE: 05/18/2018 PSYCHIATRIC PROGRESS NOTE This is a late entry 05/18/2018 covers elements not covered in my initial note 05/18/2018. SUBJECTIVE: I met with the patient in the evening. The patient slept 7-3/4 hours previous evening. She remains quite anxious, somatically preoccupied, perhaps better than before. REVIEW OF SYSTEMS: Complains of vague CV system symptoms, some chest discomfort, but nothing specific. No eye, ENT, integumentary, endocrine system symptoms on review. MENTAL STATUS EXAM: Reasonably oriented. Speech is coherent, at times pressured. Abstraction fair, computation impaired, language function intact, attention span short. Mood and affect remain somewhat anxious, labile. LABORATORY DATA: Reviewed. IMPRESSION: Unchanged from initial note. PLAN: No change from a psychiatric standpoint from initial note. MAN Scooter BASHIR MD DR: CARRILLO/praful JOB#: [id number] / [id number]
--- NOTE | 2018-05-20 05:50 | PN ---
DATE: 05/19/2018 PSYCHIATRIC PROGRESS NOTE This note covers elements not covered in my initial note 05/19/2018. SUBJECTIVE: The patient slept 6-1/2 hours previous evening. I have received a note fromChanelle, nurse loss prevention/safety district manager indicating a requirement to have the patient's medication scheduled maximum q.i.d. to help with compliance at home. I have reviewed these and in fact she is on no more than 4 times a day schedule. She does complain of some ongoing anxiety as I met with her, vague chest symptoms. REVIEW OF SYSTEMS: No pulmonary, eye, ENT system symptoms on review. MENTAL STATUS EXAM: Reasonably oriented. Speech coherent, rapid at times. Abstraction fair, computation impaired, language function intact, attention span short. Mood and affect somewhat anxious, labile. LABORATORY DATA: Reviewed. IMPRESSION: Unchanged from initial note. PLAN: No change from a psychiatric standpoint from initial note. MELISSA BASHIR MD DR: CARRILLO/praful JOB#: [id number] / [id number]
[2018-05-20] MEDS: SUCRALFATE 1 GM TABLET. PO SCH ×2 (07:14→17:50)
[2018-05-20] MEDS: METOCLOPRAMIDE 5 MG TABLET PO SCH ×4 (07:14→20:24)
[2018-05-20] MEDS: QUEtiapine 25 MG TABLET. PO SCH ×3 (07:14→17:51)
[2018-05-20] MEDS: POTASSIUM CHLORIDE 20 MEQ TABLET.ER. PO SCH (07:22)
[2018-05-20] MEDS: PANTOPRAZOLE 40 MG TABLET. PO SCH (07:22)
[2018-05-20] MEDS: POLYETHYLENE GLYCOL 3350 17 GM PACKET. PO SCH (07:23)
[2018-05-20] MEDS: GABAPENTIN 100 MG CAPSULE. PO SCH ×3 (07:24→20:23)
[2018-05-20] MEDS: ALPRAZolam 0.5 MG TABLET PO PRN ×3 (08:00→20:25)
[2018-05-20 08:22] LABS: BASO % 1 % (0-3); EOS # 0.1 x10^3/uL (0.0-0.7); EOS % 2 % (0-3); HEMOGLOBIN 13.1 g/dL (12.0-15.5); LYMPH # 0.8 x10^3/uL (1.0-4.8); LYMPH % 29 % (24-48); MEAN CORPUSCULAR HEMOGLOBIN 33 pg (25-35); MEAN CORPUSCULAR HGB CONC 33 g/dL (31-37); MEAN CORPUSCULAR VOLUME 101 fL (79-100); MONO # 0.4 x10^3/uL (0.0-1.1); MONO % 12 % (0-9); NEUT # 1.6 x10^3uL (1.8-7.7); NEUT % 56 % (31-73); PLATELET COUNT 237 x10^3/uL (140-400); RED BLOOD COUNT 3.97 x10^6/uL (3.50-5.40); RED CELL DISTRIBUTION WIDTH 12.8 % (11.5-14.5); WHITE BLOOD COUNT 2.9 x10^3/uL (4.0-11.0)
[2018-05-20 08:37] LABS: ALBUMIN 3.6 g/dL (3.4-5.0); CALCIUM 9.2 mg/dL (8.5-10.1); CREATININE 0.7 mg/dL (0.6-1.0); GFR 82.3; POTASSIUM 3.9 mmol/L (3.5-5.1); TOTAL BILIRUBIN 0.3 mg/dL (0.2-1.0); TOTAL PROTEIN 7.3 g/dL (6.4-8.2)
--- NOTE | 2018-05-20 10:08 | NUR ---
Behavior Intervention Response and Plan: BIRP Note: Behavior: Assumed Care of patient, patient located in Patient Room at shift change. Patient exhibited the following behavior Attention Seeking, Medication Seeking, Withdrawn. Brief assessment on rounds of vital signs, medication needs, lab studies, and pain. Treatment plan problems . Intervention: Patient assessed and the following interventions initiated safety checks 15 Minute Checks Cognitive Assessment , Head to toe Assessment , Medications. Response: After interactions and interventions patient responded in the following manner, Compliant , Anxious ,Withdrawn. Continue to assess behaviors and condition will continue to monitor throughout the shift as needed. Patient educated on ADL's, and hand hygiene. Plan: Continue to monitor Master Treatment Plan for patient's progress toward short term goals of Decreased Anxiety, Improved Mood, senior care goals to return to previous living setting vs placement. Continue to assess patient for changes in above assessment. Monitor for medication needs, pain, and safety concerns. Hourly rounding performed to ensure safe environment.
[2018-05-20] MEDS: MAG HYDROX/AL HYDROX/SIMETH 30 ML ORAL.SUSP PO PRN (11:40)
[2018-05-20 15:55] VITALS: BP 100/66
[2018-05-20] MEDS ORDERED: GABA-585 PO ×2 (18:09→18:10)
[2018-05-20] MEDS ORDERED: FLUV25TA PO (18:10)
--- NOTE | 2018-05-20 18:37 | NUR ---
pt up adl to meals. usually withdrawn to room. compliant with meds and cares. xanax x2 given anxiety.
--- NOTE | 2018-05-20 20:05 | PDOC ---
Exam Note: Edwin Note: Please also refer to the separate dictated note~for this date of service dictated separately.~Patient seen individually. Discussed the patient with Nursing staff reviewed the chart.~Reviewed interim history and current functioning. Reviewed vital signs,~Labs/ Radiology~and current medications noted below. Continue current treatment with the changes noted in the dictated addendum note Assessment: Vital Signs: Vital Signs Date Time Temp Pulse Resp B/P (MAP) Pulse Ox O2 Delivery O2 Flow Rate FiO2 05/20/18 15:55 98.9 112 18 100/66 (77) 96 05/19/18 15:54 Room Air I&O Intake and Output 05/20/18 06:59 Intake Total 840 ml Balance 840 ml Intake Oral 840 ml Labs: Laboratory Tests Test 05/20/18 07:50 White Blood Count 2.9 x10^3/uL (4.0-11.0) L Red Blood Count 3.97 x10^6/uL (3.50-5.40) Hemoglobin 13.1 g/dL (12.0-15.5) Hematocrit 40.0 % (36.0-47.0) Mean Corpuscular Volume 101 fL (79-100) H Mean Corpuscular Hemoglobin 33 pg (25-35) Mean Corpuscular Hemoglobin Concent 33 g/dL (31-37) Red Cell Distribution Width 12.8 % (11.5-14.5) Platelet Count 237 x10^3/uL (140-400) Neutrophils (%) (Auto) 56 % (31-73) Lymphocytes (%) (Auto) 29 % (24-48) Monocytes (%) (Auto) 12 % (0-9) H Eosinophils (%) (Auto) 2 % (0-3) Basophils (%) (Auto) 1 % (0-3) Neutrophils # (Auto) 1.6 x10^3uL (1.8-7.7) L Lymphocytes # (Auto) 0.8 x10^3/uL (1.0-4.8) L Monocytes # (Auto) 0.4 x10^3/uL (0.0-1.1) Eosinophils # (Auto) 0.1 x10^3/uL (0.0-0.7) Basophils # (Auto) 0.0 x10^3/uL (0.0-0.2) Sodium Level 140 mmol/L (136-145) Potassium Level 3.9 mmol/L (3.5-5.1) Chloride Level 104 mmol/L (98-107) Carbon Dioxide Level 31 mmol/L (21-32) Anion Gap 5 (6-14) L Blood Urea Nitrogen 13 mg/dL (7-20) Creatinine 0.7 mg/dL (0.6-1.0) Estimated GFR (Cockcroft-Gault) 82.3 BUN/Creatinine Ratio 19 (6-20) Glucose Level 92 mg/dL (70-99) Calcium Level 9.2 mg/dL (8.5-10.1) Total Bilirubin 0.3 mg/dL (0.2-1.0) Aspartate Amino Transferase (AST) 25 U/L (15-37) Alanine Aminotransferase (ALT) 20 U/L (14-59) Alkaline Phosphatase 71 U/L (46-116) Total Protein 7.3 g/dL (6.4-8.2) Albumin 3.6 g/dL (3.4-5.0) Albumin/Globulin Ratio 1.0 (1.0-1.7) Current Medications: Meds: Current Medications Cephalexin HCl (Keflex) 500 mg 1X ONCE PO Last administered on 05/09/18at 15:30 ; Start 05/09/18 at 15:30; Stop 05/09/18 at 15:36; Status DC Acetaminophen (Tylenol) 650 mg PRN Q6HRS PRN PO PAIN / TEMP Last administered on 05/19/18at 21:00; Start 05/09/18 at 16:15 Multi-Ingredient Ointment (Analgesic [place]) 1 declan PRN QID PRN TP MUSCLE PAIN; Start 05/09/18 at 16:15 Al Hydroxide/Mg Hydroxide (Mylanta Plus Xs) 15 ml PRN AFTMEALHC PRN PO DYSPEPSIA Last administered on 05/20/18at 11:40; Start 05/09/18 at 16:15 Magnesium Hydroxide (Milk Of Magnesia) 2,400 mg PRN QHS PRN PO CONSTIPATION; Start 05/09/18 at 16:15 Alprazolam (Xanax) 0.5 mg PRN Q4HRS PRN PO ANXIETY / AGITATION Last administered on 05/20/18at 15:27; Start 05/09/18 at 17:15 Fluvoxamine Maleate (Luvox) 100 mg DAILY PO Last administered on 05/15/18at 07: 45; Start 05/10/18 at 09:00; Stop 05/15/18 at 09:01; Status DC Metoclopramide HCl (Reglan) 5 mg HS PO Last administered on 05/19/18at 20:58; Start 05/09/18 at 21:00 Mirtazapine (Remeron) 15 mg QHS PO Last administered on 05/19/18at 20:59; Start 05/09/18 at 21:00 Oxycodone HCl (Roxicodone) 5 mg PRN Q12HR PRN PO severe pain Last administered on 05/18/18at 21:07; Start 05/09/18 at 17:15 Polyethylene Glycol (miraLAX) 17 gm DAILY PO Last administered on 05/19/18at 07: 30; Start 05/10/18 at 09:00; Stop 05/19/18 at 14:36; Status DC Quetiapine Fumarate (SEROquel) 37.5 mg TIDWMEALS PO Last administered on at 13:30; Start 05/10/18 at 08:00; Stop 05/19/18 at 14:37; Status DC Sucralfate (Carafate) 1 gm BID@0700,1600 PO Last administered on 05/19/18at 06: 12; Start 05/10/18 at 07:00; Stop 05/19/18 at 14:37; Status DC Gabapentin (Neurontin) 100 mg TID PO Last administered on 05/12/18at 19:49; Start 05/09/18 at 21:00; Stop 05/12/18 at 21:13; Status DC Famotidine (Pepcid) 20 mg BID PO Last administered on 05/17/18at 08:06; Start at 21:00; Stop 05/17/18 at 13:47; Status DC Cephalexin HCl (Keflex) 250 mg STK-MED ONCE .ROUTE ; Start 05/09/18 at 15:01; Stop 05/12/18 at 17:33; Status DC Gabapentin (Neurontin) 100 mg BID92 PO Last administered on 05/16/18at 16:40; Start 05/13/18 at 09:00; Stop 05/16/18 at 19:18; Status DC Gabapentin (Neurontin) 200 mg QHS PO Last administered on 05/15/18at 19:31; Start 05/13/18 at 21:00; Stop 05/16/18 at 19:18; Status DC Fluvoxamine Maleate (Luvox) 100 mg DAILY PO Last administered on 05/19/18at 07: 30; Start 05/16/18 at 09:00; Stop 05/19/18 at 14:32; Status DC Fluvoxamine Maleate (Luvox) 25 mg DAILY PO Last administered on 05/19/18at 07:29 ; Start 05/16/18 at 09:00; Stop 05/19/18 at 14:33; Status DC Metoclopramide HCl (Reglan) 5 mg TIDAC PO Last administered on 05/19/18at 13:30 ; Start 05/16/18 at 11:30; Stop 05/19/18 at 14:35; Status DC Vitamin D (Vitamin D3) 50,000 unit WEEKLY PO Last administered on 05/16/18at 11: 42; Start 05/16/18 at 11:30 Potassium Chloride (Klor-Con) 20 meq DAILY PO Last administered on 05/19/18at 07 :29; Start 05/16/18 at 11:30; Stop 05/19/18 at 14:36; Status DC Pantoprazole Sodium (Protonix) 40 mg DAILYAC PO Last administered on 05/19/18 07:29; Start 05/16/18 at 11:30; Stop 05/19/18 at 14:36; Status DC Gabapentin (Neurontin) 100 mg DAILY PO Last administered on 05/19/18 07:30; Start 05/17/18 at 09:00; Stop 05/19/18 at 14:34; Status DC Gabapentin (Neurontin) 200 mg BID@1400,2100 PO Last administered on 05/19/18 13:31; Start 05/16/18 at 21:00; Stop 05/19/18 at 14:34; Status DC Fluvoxamine Maleate (Luvox) 100 mg DAILY07 PO Last administered on 05/20/18at 07 :22; Start 05/20/18 at 07:00 Fluvoxamine Maleate (Luvox) 25 mg DAILY07 PO Last administered on 05/20/18at 07: 22; Start 05/20/18 at 07:00 Gabapentin (Neurontin) 100 mg DAILY07 PO Last administered on 05/20/18at 07:24; Start 05/20/18 at 07:00 Gabapentin (Neurontin) 200 mg BID@1300,2100 PO Last administered on 05/20/18at 13:45; Start 05/19/18 at 21:00 Metoclopramide HCl (Reglan) 5 mg TID@0700,1300,1700 PO Last administered on at 17:51; Start 05/19/18 at 17:00 Pantoprazole Sodium (Protonix) 40 mg DAILY07 PO Last administered on 05/20/18at 07:22; Start 05/20/18 at 07:00 Potassium Chloride (Klor-Con) 20 meq DAILY07 PO Last administered on 05/20/18at 07:22; Start 05/20/18 at 07:00 Polyethylene Glycol (miraLAX) 17 gm DAILY07 PO Last administered on 05/20/18at 07:23; Start 05/20/18 at 07:00 Quetiapine Fumarate (SEROquel) 37.5 mg TID@0700,1300,1700 PO Last administered on 05/20/18at 17:51; Start 05/19/18 at 17:00 Sucralfate (Carafate) 1 gm BID@0700,1700 PO Last administered on 05/20/18at 17: 50; Start 05/19/18 at 17:00 Active Scripts Active Reported Fluvoxamine Maleate 25 Mg Tablet 25 Mg PO DAILY Gabapentin 100 Mg Capsule 200 Mg PO HS Gabapentin 100 Mg Capsule 100 Mg PO DAILY D3-50 (Cholecalciferol (Vitamin D3)) 50,000 Unit Capsule 50,000 Unit PO WEEKLY Reglan (Metoclopramide Hcl) 10 Mg Tablet 5 Mg PO TIDAC Pantoprazole Sodium 40 Mg Tablet.dr 40 Mg PO DAILY Seroquel (Quetiapine Fumarate) 25 Mg Tablet 37.5 Mg PO TIDWMEALS Oxycodone Hcl 5 Mg Capsule 5 Mg PO PRN Q12HR PRN Fluvoxamine Maleate 50 Mg Tablet 100 Mg PO DAILY Miralax (Polyethylene Glycol 3350) 17 Gm Powd.pack 17 Gm PO DAILY Klor-Con M20 (Potassium Chloride) 20 Meq Tab.er.prt 20 Meq PO DAILY Sucralfate 1 Gm Tablet 1 Gm PO BID@0700,1600 Mirtazapine 15 Mg Tablet 15 Mg PO QHS Reglan (Metoclopramide Hcl) 10 Mg Tablet 5 Mg PO HS Alprazolam 0.5 Mg Tablet 0.5 Mg PO PRN Q4HRS PRN I have reviewed the current psychotropics carefully including drug interactions. Risk benefit ratio favors no change other than as noted in my dictated progress note. Diagnosis: Problems: (1) Anxiety disorder (2) Impulse control disorder (3) Major depressive disorder, recurrent episode (4) Panic disorder with agoraphobia and severe panic attacks (5) Obsessive compulsive disorder MELISSA BASHIR MD May 20, 2018 20:05
[2018-05-20] MEDS: MIRTAZAPINE 15 MG TABLET PO SCH (20:24)
[2018-05-20] MEDS: ACETAMINOPHEN 325 MG TABLET PO PRN (20:25)
--- NOTE | 2018-05-20 23:05 | NUR ---
Pt stated continuing depression and anxiety to this RN and Dr. Peterson today, DC postponed for a day or two per Dr. Peterson.
[2018-05-21 06:14] VITALS: BP 107/69
[2018-05-21] MEDS: SUCRALFATE 1 GM TABLET. PO SCH ×2 (07:35→16:47)
[2018-05-21] MEDS: METOCLOPRAMIDE 5 MG TABLET PO SCH ×4 (07:35→19:31)
[2018-05-21] MEDS: GABAPENTIN 100 MG CAPSULE. PO SCH ×3 (07:37→19:30)
[2018-05-21] MEDS: POTASSIUM CHLORIDE 20 MEQ TABLET.ER. PO SCH (07:37)
[2018-05-21] MEDS: ALPRAZolam 0.5 MG TABLET PO PRN ×2 (07:37→13:25)
[2018-05-21] MEDS: POLYETHYLENE GLYCOL 3350 17 GM PACKET. PO SCH (07:37)
[2018-05-21] MEDS: QUEtiapine 25 MG TABLET. PO SCH ×3 (07:37→16:47)
[2018-05-21] MEDS: PANTOPRAZOLE 40 MG TABLET. PO SCH (07:37)
--- NOTE | 2018-05-21 08:21 | NUR ---
STEPHANIE met with pt. 1:1 in her room this am. Pt was anxious about her jeans that are currently missing. SW tried to address other issues,however pt consciously went back to her jeans and needing to find them. Pt states Dr. Peterson told her she could go folowing day. Pt reports she still does not have a plan for the day time. All of the options provided pt refuses. STEPHANIE will work with pt on discharge plans.
--- NOTE | 2018-05-21 09:00 | NUR ---
Patient was sleep in her room. However she came out to play [employer]. This is the first activity I know of that the patient has requested to be apart off.
[2018-05-21] MEDS ORDERED: SALIVA STIMULANT AGENT 44ML SPRAY BOTTLE. PO PRN (13:30)
--- NOTE | 2018-05-21 15:09 | NUR ---
Behavior Intervention Response and Plan: BIRP Note: Behavior: Assumed Care of patient, patient located in Patient Room at shift change. Patient exhibited the following behavior Calm, Interactive, . Brief assessment on rounds of vital signs, medication needs, lab studies, and pain. Treatment plan problems 1 and 2. Intervention: Patient assessed and the following interventions initiated safety checks 15 Minute Checks Cognitive Assessment , Head to toe Assessment , Medications. Response: After interactions and interventions patient responded in the following manner, Wandering , Calm ,Medication Seeking. Continue to assess behaviors and condition will continue to monitor throughout the shift as needed. Patient educated on ADL's, and hand hygiene. Plan: Continue to monitor Master Treatment Plan for patient's progress toward short term goals of Improved Mood, Decreased Anxiety, terminal worker goals to return to previous living setting vs placement. Continue to assess patient for changes in above assessment. Monitor for medication needs, pain, and safety concerns. Hourly rounding performed to ensure safe environment.
[2018-05-21 15:53] VITALS: BP 108/72
--- NOTE | 2018-05-21 16:14 | NUR ---
NSG NOTE; PT TENDS TO BE MED SEEKING WHEN SHE HAS VISITORS ON THE FLOOR
[2018-05-21] MEDS ORDERED: ONDANSETRON ODT 4 MG TAB.RAPDIS PO PRN (16:15)
[2018-05-21] MEDS: MIRTAZAPINE 15 MG TABLET PO SCH (19:31)
--- NOTE | 2018-05-21 20:00 | NUR ---
Behavior Intervention Response and Plan: BIRP Note: Behavior: Assumed Care of patient, patient located in Hallway at shift change. Patient exhibited the following behavior Restless, Calm, Compliant. Brief assessment on rounds of vital signs, medication needs, lab studies, and pain. Treatment plan problems . Intervention: Patient assessed and the following interventions initiated safety checks 15 Minute Checks Cognitive Assessment , Head to toe Assessment , Medications. Response: After interactions and interventions patient responded in the following manner, Withdrawn , Drowsy ,Restless. Continue to assess behaviors and condition will continue to monitor throughout the shift as needed. Patient educated on ADL's, and hand hygiene. Plan: Continue to monitor Master Treatment Plan for patient's progress toward short term goals of Decreased Agitation, Decreased Anxiety, retirement goals to return to previous living setting vs placement. Continue to assess patient for changes in above assessment. Monitor for medication needs, pain, and safety concerns. Hourly rounding performed to ensure safe environment.
--- NOTE | 2018-05-21 20:30 | PDOC ---
Exam Note: Edwin Note: Please also refer to the separate dictated note~for this date of service dictated separately.~Patient seen individually. Discussed the patient with Nursing staff reviewed the chart.~Reviewed interim history and current functioning. Reviewed vital signs,~Labs/ Radiology~and current medications noted below. Continue current treatment with the changes noted in the dictated addendum note Assessment: Vital Signs: Vital Signs Date Time Temp Pulse Resp B/P (MAP) Pulse Ox O2 Delivery O2 Flow Rate FiO2 05/21/18 15:53 97.0 107 18 108/72 (84) 96 05/19/18 15:54 Room Air I&O Intake and Output 05/21/18 07:00 Intake Total 1025 ml Balance 1025 ml Intake Oral 1025 ml # Bowel Movements 1 Current Medications: Meds: Current Medications Cephalexin HCl (Keflex) 500 mg 1X ONCE PO Last administered on 05/09/18at 15:30 ; Start 05/09/18 at 15:30; Stop 05/09/18 at 15:36; Status DC Acetaminophen (Tylenol) 650 mg PRN Q6HRS PRN PO PAIN / TEMP Last administered on 05/20/18at 20:25; Start 05/09/18 at 16:15 Multi-Ingredient Ointment (Analgesic [place]) 1 declan PRN QID PRN TP MUSCLE PAIN; Start 05/09/18 at 16:15 Al Hydroxide/Mg Hydroxide (Mylanta Plus Xs) 15 ml PRN AFTMEALHC PRN PO DYSPEPSIA Last administered on 05/20/18at 11:40; Start 05/09/18 at 16:15 Magnesium Hydroxide (Milk Of Magnesia) 2,400 mg PRN QHS PRN PO CONSTIPATION; Start 05/09/18 at 16:15 Alprazolam (Xanax) 0.5 mg PRN Q4HRS PRN PO ANXIETY / AGITATION Last administered on 05/21/18at 13:25; Start 05/09/18 at 17:15 Fluvoxamine Maleate (Luvox) 100 mg DAILY PO Last administered on 05/15/18at 07: 45; Start 05/10/18 at 09:00; Stop 05/15/18 at 09:01; Status DC Metoclopramide HCl (Reglan) 5 mg HS PO Last administered on 05/21/18at 19:31; Start 05/09/18 at 21:00 Mirtazapine (Remeron) 15 mg QHS PO Last administered on 05/21/18at 19:31; Start 05/09/18 at 21:00 Oxycodone HCl (Roxicodone) 5 mg PRN Q12HR PRN PO severe pain Last administered on 05/18/18at 21:07; Start 05/09/18 at 17:15 Polyethylene Glycol (miraLAX) 17 gm DAILY PO Last administered on 05/19/18at 07: 30; Start 05/10/18 at 09:00; Stop 05/19/18 at 14:36; Status DC Quetiapine Fumarate (SEROquel) 37.5 mg TIDWMEALS PO Last administered on at 13:30; Start 05/10/18 at 08:00; Stop 05/19/18 at 14:37; Status DC Sucralfate (Carafate) 1 gm BID@0700,1600 PO Last administered on 05/19/18at 06: 12; Start 05/10/18 at 07:00; Stop 05/19/18 at 14:37; Status DC Gabapentin (Neurontin) 100 mg TID PO Last administered on 05/12/18at 19:49; Start 05/09/18 at 21:00; Stop 05/12/18 at 21:13; Status DC Famotidine (Pepcid) 20 mg BID PO Last administered on 05/17/18at 08:06; Start at 21:00; Stop 05/17/18 at 13:47; Status DC Cephalexin HCl (Keflex) 250 mg STK-MED ONCE .ROUTE ; Start 05/09/18 at 15:01; Stop 05/12/18 at 17:33; Status DC Gabapentin (Neurontin) 100 mg BID92 PO Last administered on 05/16/18at 16:40; Start 05/13/18 at 09:00; Stop 05/16/18 at 19:18; Status DC Gabapentin (Neurontin) 200 mg QHS PO Last administered on 05/15/18at 19:31; Start 05/13/18 at 21:00; Stop 05/16/18 at 19:18; Status DC Fluvoxamine Maleate (Luvox) 100 mg DAILY PO Last administered on 05/19/18 07: 30; Start 05/16/18 at 09:00; Stop 05/19/18 at 14:32; Status DC Fluvoxamine Maleate (Luvox) 25 mg DAILY PO Last administered on 05/19/18 07:29 ; Start 05/16/18 at 09:00; Stop 05/19/18 at 14:33; Status DC Metoclopramide HCl (Reglan) 5 mg TIDAC PO Last administered on 05/19/18 13:30 ; Start 05/16/18 at 11:30; Stop 05/19/18 at 14:35; Status DC Vitamin D (Vitamin D3) 50,000 unit WEEKLY PO Last administered on 05/16/18at 11: 42; Start 05/16/18 at 11:30 Potassium Chloride (Klor-Con) 20 meq DAILY PO Last administered on 05/19/18 07 :29; Start 05/16/18 at 11:30; Stop 05/19/18 at 14:36; Status DC Pantoprazole Sodium (Protonix) 40 mg DAILYAC PO Last administered on 05/19/18 07:29; Start 05/16/18 at 11:30; Stop 05/19/18 at 14:36; Status DC Gabapentin (Neurontin) 100 mg DAILY PO Last administered on 05/19/18 07:30; Start 05/17/18 at 09:00; Stop 05/19/18 at 14:34; Status DC Gabapentin (Neurontin) 200 mg BID@1400,2100 PO Last administered on 05/19/18 13:31; Start 05/16/18 at 21:00; Stop 05/19/18 at 14:34; Status DC Fluvoxamine Maleate (Luvox) 100 mg DAILY07 PO Last administered on 05/21/18 07 :35; Start 05/20/18 at 07:00 Fluvoxamine Maleate (Luvox) 25 mg DAILY07 PO Last administered on 05/21/18 07: 35; Start 05/20/18 at 07:00 Gabapentin (Neurontin) 100 mg DAILY07 PO Last administered on 05/21/18 07:37; Start 05/20/18 at 07:00 Gabapentin (Neurontin) 200 mg BID@1300,2100 PO Last administered on 05/21/18 19:30; Start 05/19/18 at 21:00 Metoclopramide HCl (Reglan) 5 mg TID@0700,1300,1700 PO Last administered on 16:46; Start 05/19/18 at 17:00 Pantoprazole Sodium (Protonix) 40 mg DAILY07 PO Last administered on 05/21/18 07:37; Start 05/20/18 at 07:00 Potassium Chloride (Klor-Con) 20 meq DAILY07 PO Last administered on 05/21/18 07:37; Start 05/20/18 at 07:00 Polyethylene Glycol (miraLAX) 17 gm DAILY07 PO Last administered on 05/21/18 07:37; Start 05/20/18 at 07:00 Quetiapine Fumarate (SEROquel) 37.5 mg TID@0700,1300,1700 PO Last administered on 05/21/18 16:47; Start 05/19/18 at 17:00 Sucralfate (Carafate) 1 gm BID@0700,1700 PO Last administered on 05/21/18 16: 47; Start 05/19/18 at 17:00 Saliva Substitute (Biotene Moisturizing Mouth) 2 spray PRN Q2HR PRN PO DRY MOUTH; Start 05/21/18 at 13:30 Ondansetron HCl (Zofran Odt) 4 mg PRN Q8HRS PRN PO NAUSEA/VOMITING Last administered on 05/21/18 16:32; Start 05/21/18 at 16:15 Active Scripts Active Reported Fluvoxamine Maleate 25 Mg Tablet 25 Mg PO DAILY Gabapentin 100 Mg Capsule 200 Mg PO HS Gabapentin 100 Mg Capsule 100 Mg PO DAILY D3-50 (Cholecalciferol (Vitamin D3)) 50,000 Unit Capsule 50,000 Unit PO WEEKLY Reglan (Metoclopramide Hcl) 10 Mg Tablet 5 Mg PO TIDAC Pantoprazole Sodium 40 Mg Tablet.dr 40 Mg PO DAILY Seroquel (Quetiapine Fumarate) 25 Mg Tablet 37.5 Mg PO TIDWMEALS Oxycodone Hcl 5 Mg Capsule 5 Mg PO PRN Q12HR PRN Fluvoxamine Maleate 50 Mg Tablet 100 Mg PO DAILY Miralax (Polyethylene Glycol 3350) 17 Gm Powd.pack 17 Gm PO DAILY Klor-Con M20 (Potassium Chloride) 20 Meq Tab.er.prt 20 Meq PO DAILY Sucralfate 1 Gm Tablet 1 Gm PO BID@0700,1600 Mirtazapine 15 Mg Tablet 15 Mg PO QHS Reglan (Metoclopramide Hcl) 10 Mg Tablet 5 Mg PO HS Alprazolam 0.5 Mg Tablet 0.5 Mg PO PRN Q4HRS PRN I have reviewed the current psychotropics carefully including drug interactions. Risk benefit ratio favors no change other than as noted in my dictated progress note. Diagnosis: Problems: (1) Anxiety disorder (2) Impulse control disorder (3) Major depressive disorder, recurrent episode (4) Panic disorder with agoraphobia and severe panic attacks (5) Obsessive compulsive disorder MELISSA BASHIR MD May 21, 2018 20:30
--- NOTE | 2018-05-22 00:33 | PN ---
DATE: 05/20/2018 This late entry 05/20/2018 covers the elements not covered in my initial note. SUBJECTIVE: I met with the patient in the evening of 05/20/2018. Overall, the patient has been anxious, received Xanax x 2. As I met with her, she said she feels depressed. WBC is 2.9, we will defer to Dr. Duncan. REVIEW OF SYSTEMS: No CV, , pulmonary, eye, ENT system symptoms on review. MENTAL STATUS EXAM: Reasonably oriented. Speech coherent, abstraction fair, computation impaired, language function intact, attention span short. Mood and affect remain somewhat anxious. Again, we processed activities at home to occupy her time rather than perseverating somatically. LABORATORY DATA: Reviewed. IMPRESSION: Unchanged from initial note. PLAN: No change from a psychiatric standpoint. The Neurontin could be causing the depressive feeling. We will monitor another couple of days and reduce if it persists. MAN Scooter BASHIR MD DR: CARRILLO/praful JOB#: [id number] / [id number]
[2018-05-22] MEDS: SUCRALFATE 1 GM TABLET. PO SCH ×2 (05:18→17:17)
[2018-05-22] MEDS: PANTOPRAZOLE 40 MG TABLET. PO SCH (05:18)
[2018-05-22] MEDS: GABAPENTIN 100 MG CAPSULE. PO SCH ×3 (05:19→19:33)
[2018-05-22] MEDS: QUEtiapine 25 MG TABLET. PO SCH ×3 (05:22→17:17)
[2018-05-22] MEDS: METOCLOPRAMIDE 5 MG TABLET PO SCH ×4 (05:22→19:33)
[2018-05-22] MEDS: ALPRAZolam 0.5 MG TABLET PO PRN ×3 (05:22→18:57)
[2018-05-22 05:42] VITALS: BP 108/59
[2018-05-22] MEDS: POLYETHYLENE GLYCOL 3350 17 GM PACKET. PO SCH (05:42)
[2018-05-22] MEDS: POTASSIUM CHLORIDE 20 MEQ TABLET.ER. PO SCH (05:43)
--- NOTE | 2018-05-22 11:47 | NUR ---
Met with Morena to discuss discharge planning for 05/23/18. Morena reports her significant other, Sumit Valerio, will transport around 10:30am. Morena expressed she is going to place a call to her therapist, Angela Hoyos, to make an appointment for later this week.
--- NOTE | 2018-05-22 11:51 | NUR ---
[facility] Social Work Discharge Planning Form Patient Name MORENA TRAN Admit Date: 05/09/2018 DISCHARGE PLAN Discharge Destination: Home with significant other, Sumit Valerio Transportation: Sumit will transport to home on 05/23/18 at 10:30am. Special Instructions/Notes: Morena will call Angela Hoyos, counselor, to arrange for appointment later this week. DISCHARGE TO HOME: Address: [facility] [address] [place] [address] Pharmacy: [facility], Psychiatrist/Mental Health Follow Up: Dr. Peterson, schedule follow up appointment in 7-10 days. [phone] Primary Care Follow Up: Dr. Faizan Hendricks, appointment scheduled for 05/29/18 at 3:20pm. [phone]
[2018-05-22] MEDS ORDERED: ONDA4TAB10 PO (14:18)
[2018-05-22] MEDS ORDERED: SALI44.3 MM (14:19)
--- NOTE | 2018-05-22 14:26 | NUR ---
Spoke with Dr. Peterson, he changed patients PRN alprazolam order to PRN Q6hrs from PRN Q4hrs. Patient scheduled to discharge tomorrow on 05/23/18 to home.
--- NOTE | 2018-05-22 15:08 | NUR ---
Behavior Intervention Response and Plan: BIRP Note: Behavior: Assumed Care of patient, patient located in Hallway at shift change. Patient exhibited the following behavior withdrawn, Calm, Compliant. Brief assessment on rounds of vital signs, medication needs, lab studies, and pain. Treatment plan problems . Intervention: Patient assessed and the following interventions initiated safety checks 15 Minute Checks Cognitive Assessment , Head to toe Assessment , Medications. Response: After interactions and interventions patient responded in the following manner, Withdrawn , Calm, Compliant. Continue to assess behaviors and condition will continue to monitor throughout the shift as needed. Patient educated on ADL's, and hand hygiene. Plan: Continue to monitor Master Treatment Plan for patient's progress toward short term goals of Decreased Agitation, Decreased Anxiety, residential goals to return to previous living setting vs placement. Continue to assess patient for changes in above assessment. Monitor for medication needs, pain, and safety concerns. Hourly rounding performed to ensure safe environment.
[2018-05-22 15:53] VITALS: BP 100/64
[2018-05-22] MEDS: MIRTAZAPINE 15 MG TABLET PO SCH (19:33)
--- NOTE | 2018-05-22 20:00 | NUR ---
Behavior Intervention Response and Plan: BIRP Note: Behavior: Assumed Care of patient, patient located in Hallway at shift change. Patient exhibited the following behavior Restless, Calm, Compliant. Brief assessment on rounds of vital signs, medication needs, lab studies, and pain. Treatment plan problems . Intervention: Patient assessed and the following interventions initiated safety checks 15 Minute Checks Cognitive Assessment , Head to toe Assessment , Medications. Response: After interactions and interventions patient responded in the following manner, Cooperative , Social ,Drowsy. Continue to assess behaviors and condition will continue to monitor throughout the shift as needed. Patient educated on ADL's, and hand hygiene. Plan: Continue to monitor Master Treatment Plan for patient's progress toward short term goals of Decreased Agitation, Decreased Anxiety, prison goals to return to previous living setting vs placement. Continue to assess patient for changes in above assessment. Monitor for medication needs, pain, and safety concerns. Hourly rounding performed to ensure safe environment.
[2018-05-22] MEDS: oxyCODONE IR 5 MG TABLET PO PRN (20:42)
--- NOTE | 2018-05-22 20:50 | PDOC ---
Exam Note: Edwin Note: Please also refer to the separate dictated note~for this date of service dictated separately.~Patient seen individually. Discussed the patient with Nursing staff reviewed the chart.~Reviewed interim history and current functioning. Reviewed vital signs,~Labs/ Radiology~and current medications noted below. Continue current treatment with the changes noted in the dictated addendum note Assessment: Vital Signs: Vital Signs Date Time Temp Pulse Resp B/P (MAP) Pulse Ox O2 Delivery O2 Flow Rate FiO2 05/22/18 15:53 98.4 89 16 100/64 (76) 97 05/19/18 15:54 Room Air I&O Intake and Output 05/22/18 07:00 Intake Total 960 ml Balance 960 ml Intake Oral 960 ml # Voids 1 # Bowel Movements 1 Current Medications: Meds: Current Medications Cephalexin HCl (Keflex) 500 mg 1X ONCE PO Last administered on 05/09/18at 15:30 ; Start 05/09/18 at 15:30; Stop 05/09/18 at 15:36; Status DC Acetaminophen (Tylenol) 650 mg PRN Q6HRS PRN PO PAIN / TEMP Last administered on 05/20/18at 20:25; Start 05/09/18 at 16:15 Multi-Ingredient Ointment (Analgesic [place]) 1 declan PRN QID PRN TP MUSCLE PAIN; Start 05/09/18 at 16:15 Al Hydroxide/Mg Hydroxide (Mylanta Plus Xs) 15 ml PRN AFTMEALHC PRN PO DYSPEPSIA Last administered on 05/20/18at 11:40; Start 05/09/18 at 16:15 Magnesium Hydroxide (Milk Of Magnesia) 2,400 mg PRN QHS PRN PO CONSTIPATION; Start 05/09/18 at 16:15 Alprazolam (Xanax) 0.5 mg PRN Q4HRS PRN PO ANXIETY / AGITATION Last administered on 05/22/18at 12:58; Start 05/09/18 at 17:15; Stop 05/22/18 at 14:26 ; Status DC Fluvoxamine Maleate (Luvox) 100 mg DAILY PO Last administered on 05/15/18at 07: 45; Start 05/10/18 at 09:00; Stop 05/15/18 at 09:01; Status DC Metoclopramide HCl (Reglan) 5 mg HS PO Last administered on 05/22/18 19:33; Start 05/09/18 at 21:00 Mirtazapine (Remeron) 15 mg QHS PO Last administered on 05/22/18 19:33; Start 05/09/18 at 21:00 Oxycodone HCl (Roxicodone) 5 mg PRN Q12HR PRN PO severe pain Last administered on 05/22/18 20:42; Start 05/09/18 at 17:15 Polyethylene Glycol (miraLAX) 17 gm DAILY PO Last administered on 05/19/18at 07: 30; Start 05/10/18 at 09:00; Stop 05/19/18 at 14:36; Status DC Quetiapine Fumarate (SEROquel) 37.5 mg TIDWMEALS PO Last administered on at 13:30; Start 05/10/18 at 08:00; Stop 05/19/18 at 14:37; Status DC Sucralfate (Carafate) 1 gm BID@0700,1600 PO Last administered on 05/19/18at 06: 12; Start 05/10/18 at 07:00; Stop 05/19/18 at 14:37; Status DC Gabapentin (Neurontin) 100 mg TID PO Last administered on 05/12/18at 19:49; Start 05/09/18 at 21:00; Stop 05/12/18 at 21:13; Status DC Famotidine (Pepcid) 20 mg BID PO Last administered on 05/17/18at 08:06; Start at 21:00; Stop 05/17/18 at 13:47; Status DC Cephalexin HCl (Keflex) 250 mg STK-MED ONCE .ROUTE ; Start 05/09/18 at 15:01; Stop 05/12/18 at 17:33; Status DC Gabapentin (Neurontin) 100 mg BID92 PO Last administered on 05/16/18at 16:40; Start 05/13/18 at 09:00; Stop 05/16/18 at 19:18; Status DC Gabapentin (Neurontin) 200 mg QHS PO Last administered on 05/15/18at 19:31; Start 05/13/18 at 21:00; Stop 05/16/18 at 19:18; Status DC Fluvoxamine Maleate (Luvox) 100 mg DAILY PO Last administered on 05/19/18at 07: 30; Start 05/16/18 at 09:00; Stop 05/19/18 at 14:32; Status DC Fluvoxamine Maleate (Luvox) 25 mg DAILY PO Last administered on 05/19/18at 07:29 ; Start 05/16/18 at 09:00; Stop 05/19/18 at 14:33; Status DC Metoclopramide HCl (Reglan) 5 mg TIDAC PO Last administered on 05/19/18at 13:30 ; Start 05/16/18 at 11:30; Stop 05/19/18 at 14:35; Status DC Vitamin D (Vitamin D3) 50,000 unit WEEKLY PO Last administered on 05/16/18at 11: 42; Start 05/16/18 at 11:30 Potassium Chloride (Klor-Con) 20 meq DAILY PO Last administered on 05/19/18at 07 :29; Start 05/16/18 at 11:30; Stop 05/19/18 at 14:36; Status DC Pantoprazole Sodium (Protonix) 40 mg DAILYAC PO Last administered on 05/19/18at 07:29; Start 05/16/18 at 11:30; Stop 05/19/18 at 14:36; Status DC Gabapentin (Neurontin) 100 mg DAILY PO Last administered on 05/19/18at 07:30; Start 05/17/18 at 09:00; Stop 05/19/18 at 14:34; Status DC Gabapentin (Neurontin) 200 mg BID@1400,2100 PO Last administered on 05/19/18at 13:31; Start 05/16/18 at 21:00; Stop 05/19/18 at 14:34; Status DC Fluvoxamine Maleate (Luvox) 100 mg DAILY07 PO Last administered on 05/22/18at 05 :42; Start 05/20/18 at 07:00 Fluvoxamine Maleate (Luvox) 25 mg DAILY07 PO Last administered on 05/22/18 05: 18; Start 05/20/18 at 07:00 Gabapentin (Neurontin) 100 mg DAILY07 PO Last administered on 05/22/18at 05:19; Start 05/20/18 at 07:00 Gabapentin (Neurontin) 200 mg BID@1300,2100 PO Last administered on 05/22/18 19:33; Start 05/19/18 at 21:00 Metoclopramide HCl (Reglan) 5 mg TID@0700,1300,1700 PO Last administered on 17:00; Start 05/19/18 at 17:00 Pantoprazole Sodium (Protonix) 40 mg DAILY07 PO Last administered on 05/22/18 05:18; Start 05/20/18 at 07:00 Potassium Chloride (Klor-Con) 20 meq DAILY07 PO Last administered on 05/22/18 05:43; Start 05/20/18 at 07:00 Polyethylene Glycol (miraLAX) 17 gm DAILY07 PO Last administered on 05/22/18 05:42; Start 05/20/18 at 07:00 Quetiapine Fumarate (SEROquel) 37.5 mg TID@0700,1300,1700 PO Last administered on 05/22/18 17:17; Start 05/19/18 at 17:00 Sucralfate (Carafate) 1 gm BID@0700,1700 PO Last administered on 05/22/18 17: 17; Start 05/19/18 at 17:00 Saliva Substitute (Biotene Moisturizing Mouth) 2 spray PRN Q2HR PRN PO DRY MOUTH; Start 05/21/18 at 13:30 Ondansetron HCl (Zofran Odt) 4 mg PRN Q8HRS PRN PO NAUSEA/VOMITING Last administered on 05/21/18 16:32; Start 05/21/18 at 16:15 Alprazolam (Xanax) 0.5 mg PRN Q6HRS PRN PO ANXIETY / AGITATION Last administered on 05/22/18 18:57; Start 05/22/18 at 14:30 Active Scripts Active Reported Biotene Moisturizing Mouth (Saliva Stimulant Agents Comb.3) 44.3 Ml [place] 2 Sprays MM PRN Q2HR PRN Zofran Odt (Ondansetron) 4 Mg Tab.rapdis 4 Mg PO PRN Q8HRS PRN Fluvoxamine Maleate 25 Mg Tablet 25 Mg PO DAILY Gabapentin 100 Mg Capsule 200 Mg PO HS Gabapentin 100 Mg Capsule 100 Mg PO DAILY D3-50 (Cholecalciferol (Vitamin D3)) 50,000 Unit Capsule 50,000 Unit PO WEEKLY Reglan (Metoclopramide Hcl) 10 Mg Tablet 5 Mg PO TIDAC Pantoprazole Sodium 40 Mg Tablet.dr 40 Mg PO DAILY Seroquel (Quetiapine Fumarate) 25 Mg Tablet 37.5 Mg PO TIDWMEALS Oxycodone Hcl 5 Mg Capsule 5 Mg PO PRN Q12HR PRN Fluvoxamine Maleate 50 Mg Tablet 100 Mg PO DAILY Miralax (Polyethylene Glycol 3350) 17 Gm Powd.pack 17 Gm PO DAILY Klor-Con M20 (Potassium Chloride) 20 Meq Tab.er.prt 20 Meq PO DAILY Sucralfate 1 Gm Tablet 1 Gm PO BID@0700,1600 Mirtazapine 15 Mg Tablet 15 Mg PO QHS Reglan (Metoclopramide Hcl) 10 Mg Tablet 5 Mg PO HS Alprazolam 0.5 Mg Tablet 0.5 Mg PO PRN Q4HRS PRN I have reviewed the current psychotropics carefully including drug interactions. Risk benefit ratio favors no change other than as noted in my dictated progress note. Diagnosis: Problems: (1) Anxiety disorder (2) Impulse control disorder (3) Major depressive disorder, recurrent episode (4) Panic disorder with agoraphobia and severe panic attacks (5) Obsessive compulsive disorder MELISSA BASHIR MD May 22, 2018 20:50
--- NOTE | 2018-05-23 00:27 | PN ---
DATE: 05/21/2018 This late entry 05/21/2018 covers elements not covered in my initial note. SUBJECTIVE: I met with the patient in the evening. Previously nursing staff had called me about the patient's anxiety and she has received Xanax x 2. She has been medication seeking, especially when family visits. She has had some complaints of diarrhea, dry mouth. No CV, , eye, ENT system symptoms on review. MENTAL STATUS EXAM: Reasonably oriented. Speech coherent, anxious, somewhat tremulous in her lips consequent to anxiety. Denies being depressed on 05/21/2018 like she did on 05/20/2018 and noted in my note of 05/20/2018. Speech otherwise coherent, a little rapid. Abstraction fair, computation impaired, language function intact, attention span short. Mood and affect remain somewhat anxious, but overall improved. No suicidal or homicidal ideation. LABORATORY DATA: Reviewed. IMPRESSION: Major depressive disorder, panic disorder with agoraphobia, anxiety disorder. PLAN: Continue psychotropics mentioned in my initial note including the Neurontin, which was increased and the Luvox has been increased to 125 mg a day as well. MAN Scooter BASHIR MD DR: CARRILLO/praful JOB#: [id number] / [id number]
[2018-05-23] MEDS ORDERED: ACET500T68 PO (05:09)
[2018-05-23] MEDS ORDERED: MAGN400O7 PO (05:15)
[2018-05-23] MEDS ORDERED: METH29OI TP (05:16)
[2018-05-23] MEDS ORDERED: METO10TA81 PO ×2 (05:18→05:19)
[2018-05-23] MEDS ORDERED: ONDA4TAB10 PO (05:21)
[2018-05-23] MEDS ORDERED: SALI44.3 MM (05:23)
[2018-05-23] MEDS ORDERED: FLUV100T2 PO (05:26)
[2018-05-23] MEDS ORDERED: OXYC5CAP PO (05:28)
[2018-05-23] MEDS: SUCRALFATE 1 GM TABLET. PO SCH (05:43)
[2018-05-23] MEDS: METOCLOPRAMIDE 5 MG TABLET PO SCH (05:43)
[2018-05-23] MEDS: PANTOPRAZOLE 40 MG TABLET. PO SCH (05:43)
[2018-05-23] MEDS: CHOLECALCIFEROL (VITAMIN D3) 50,000 UNIT CAPSULE PO SCH (05:43)
[2018-05-23] MEDS: QUEtiapine 25 MG TABLET. PO SCH (05:44)
[2018-05-23] MEDS: POTASSIUM CHLORIDE 20 MEQ TABLET.ER. PO SCH (05:44)
[2018-05-23] MEDS: POLYETHYLENE GLYCOL 3350 17 GM PACKET. PO SCH (05:45)
[2018-05-23] MEDS: GABAPENTIN 100 MG CAPSULE. PO SCH (05:45)
[2018-05-23 05:57] VITALS: BP 102/65
[2018-05-23] MEDS ORDERED: MAG355OR11 PO (07:38)
[2018-05-23] MEDS: ALPRAZolam 0.5 MG TABLET PO PRN (09:22)
--- NOTE | 2018-05-23 09:25 | NUR ---
Patient requested xanax for "general" anxiety. Patient is scheduled to discharge today at 1030 to home. Partner to pick her up, scripts called to [facility]. Xanax and hydrocodone to be hand carried.
--- NOTE | 2018-05-23 10:15 | NUR ---
Patient seeking attention/medication at nurses station, has already received PRN xanax at 0930. States it is not effective. Advised patient that Sumit will be he shortly to pick her up to go home. She is visibly shaking, when asked, she denies SI. Reassured patient that she will be feel better each day, and encouraged her to follow up with her counselor, PCP and Dr. Peterson as prescribed.
--- NOTE | 2018-05-23 10:45 | NUR ---
Patient discharge instructions and medications reviewed with patient and Sumit, her friend. Sumit expressed understanding of dosage instructions. Patient given unit number to call if any questions arise. Prescriptions called into [facility] pharmacy of [place]. According to pharmacist at [facility], prior authorization needed for Seroquel 37.5mg TID due to kind of patients Part D Medicare. Nurse called [phone] . Addendum: 05/23/18 at 1141 by FRANKIE ESCOBAR RN Prior authorization received: auth#[id number] approved 02/22/18 to 05/23/19. ICD-10 code used was F-33 Major Depressive Disorder, recurrent.
--- NOTE | 2018-05-23 10:45 | NUR ---
Transition Record was faxed to follow-up provider with the following elements: Reason for admission, procedures, tests, principal diagnosis, pending studies, patient instructions, 22/05 contact information for unit, phone number to obtain pending test results, plan for follow-up care, physician follow-up, advanced directive information, and medication list with dose, duration and instructions. This information was included in the following documents: History and physical, lab results, study results, progress notes, social work planning form, DC instruction form, patient visit summary, and medication reconciliation form. Date & time record faxed: 05/23/18 [id number] Record faxed to: PCP Faizan Hendricks [phone] Record discussed with/ report given to: patient discharging to home. Medications reviewed and discharge appointments reviewed with patient and Jose Guadalupe Arana her significant other. He stated he will be managing her medications for her.
--- NOTE | 2018-05-23 13:48 | PN ---
DATE: 05/22/2018 PSYCHIATRIC PROGRESS NOTE This late entry 05/22/2018 covers elements not covered in my initial note. SUBJECTIVE: Met with the patient at length in her room. The patient slept 7-1/4 hours previous evening, remained somewhat anxious, somatically preoccupied, less so than before. Her son, Sal, visited her and she was very apprehensive following the visit because he is encouraging her to be involved with activities and do things to keep her mind active and busy rather than obsessed at home sitting all by herself all day while gym, goes to work. REVIEW OF SYSTEMS: No CV, , pulmonary, eye, ENT system symptoms on review. She has vague somatic symptoms. MENTAL STATUS EXAM: Oriented to herself, reasonably well. Speech coherent, at times rapid, abstraction fair, computation impaired, language function is intact. Attention span short, remains somewhat anxious but improved. No suicidal or homicidal ideation. LABORATORY DATA: Reviewed. IMPRESSION: Major depressive disorder, recurrent, in partial remission; anxiety disorder, unspecified; obsessive compulsive disorder. PLAN: Continue psychotropics from initial note. Transition to outpatient on 05/23/2018. MAN Scooter BASHIR MD DR: CARRILLO/praful JOB#: [id number] / [id number]
--- NOTE | 2018-05-24 17:16 | DS ---
DATE OF DISCHARGE: 05/23/2018 DISCHARGE SUMMARY AND PSYCHIATRIC PROGRESS NOTE This is a late entry for 05/23/2018 and covers elements not covered in my initial note. REASON FOR ADMISSION: Please refer to the admission history for details. Briefly, the patient is a 72-year-old female who presented to the Emergency Room at [facility] on account of slurred speech, unsteady gait, not acting like herself, worsening anxiety, panic attacks. She had failed fairly intense outpatient interventions from a psychiatric standpoint with myself and had had several telephone calls with various family members and the patient in the few days prior to this readmission about the worsening anxiety, the patient's over usage of Xanax, failure of outpatient treatment, feeling hopeless, worthless, extremely obsessed and somatically preoccupied. CHIEF COMPLAINT: "Nothing is working out." HISTORY OF PRESENT ILLNESS: The patient has a history of major depressive disorder/panic disorder, anxiety disorder, possible bipolar disorder. She has had significant mood swings, worsening depressive symptoms, panic attacks recently. Thought the psychosocial stressors worsened the symptoms since [place] alone[place] her significant other, Sumit works all day. She then obsesses, somatically gets more anxious, starts overusing Xanax, gets slurred speech, disorganized and potentially dangerous in her presentation. SIGNIFICANT FINDINGS AND CLINICAL COURSE: Following admission, the patient was seen daily individually by myself, followed medically per Dr. Duncan/Dr. Randolph. Adjustments were made in her psychotropics and she seemed to respond to a combination of Xanax 0.5 mg q. 6 hours p.r.n. anxiety, Remeron 15 mg at bedtime, Seroquel 37.5 mg 3 times a day, Luvox 125 mg daily, Neurontin 100 mg a.m., 200 at 1400 hours and at bedtime. Prior to discharge on 05/23/2018, no CV, , pulmonary, eye, ENT system symptoms on review, though she has vague somatic symptoms of vague chest pain and abdominal pain, nothing specific and all workup has been negative. MENTAL STATUS EXAM: Reasonably oriented. Speech coherent, rapid at times, but less so than before. Abstraction fair, computation impaired, language function intact. Mood and affect is improved. No suicidal or homicidal ideation. FINAL DIAGNOSES: Major depressive disorder with psychotic features; bipolar 1 disorder, mixed; anxiety disorder, unspecified; obsessive-compulsive disorder. Rest unchanged from admission. DISCHARGE MEDICATIONS: Please refer to the EMRAD. DISCHARGE INSTRUCTIONS: Outpatient psychiatric followup with myself and psychotherapy with her therapist at [facility] to be attended every day, 5 days a week, so that she is out in the community around others rather than sitting by herself all day at home while her significant other is working. MELISSA BASHIR MD DR: CARRILLO/praful JOB#: [id number] / [id number]
--- NOTE | 2018-05-24 20:31 | PDOC ---
Exam Note: Edwin Note: Late entry for date of service May 23, 2018. Please also refer to the separate dictated note~for this date of service dictated separately.~Patient seen individually. Discussed the patient with Nursing staff reviewed the chart.~ Reviewed interim history and current functioning. Reviewed vital signs,~Labs/ Radiology~and current medications noted below. Continue current treatment with the changes noted in the dictated addendum note Assessment: Vital Signs: VS - Last 72 Hours, by Label Date Time Temp Pulse Resp B/P (MAP) Pulse Ox O2 Delivery O2 Flow Rate FiO2 05/23/18 05:57 97.6 74 18 102/65 (77) 96 05/22/18 15:53 98.4 89 16 100/64 (76) 97 05/22/18 05:42 97.8 78 14 108/59 (75) 97 Vital Signs Date Time Temp Pulse Resp B/P (MAP) Pulse Ox O2 Delivery O2 Flow Rate FiO2 05/23/18 05:57 97.6 74 18 102/65 (77) 96 05/19/18 15:54 Room Air I&O Intake and Output 05/24/18 06:59 Intake Total 240 ml Balance 240 ml Intake Oral 240 ml Current Medications: Meds: Current Medications Cephalexin HCl (Keflex) 500 mg 1X ONCE PO Last administered on 05/09/18at 15:30 ; Start 05/09/18 at 15:30; Stop 05/09/18 at 15:36; Status DC Acetaminophen (Tylenol) 650 mg PRN Q6HRS PRN PO PAIN / TEMP Last administered on 05/20/18at 20:25; Start 05/09/18 at 16:15; Stop 05/23/18 at 11:46; Status DC Multi-Ingredient Ointment (Analgesic [place]) 1 will PRN QID PRN TP MUSCLE PAIN; Start 05/09/18 at 16:15; Stop 05/23/18 at 11:46; Status DC Al Hydroxide/Mg Hydroxide (Mylanta Plus Xs) 15 ml PRN AFTMEALHC PRN PO DYSPEPSIA Last administered on 05/20/18at 11:40; Start 05/09/18 at 16:15; Stop at 11:46; Status DC Magnesium Hydroxide (Milk Of Magnesia) 2,400 mg PRN QHS PRN PO CONSTIPATION; Start 05/09/18 at 16:15; Stop 05/23/18 at 11:46; Status DC Alprazolam (Xanax) 0.5 mg PRN Q4HRS PRN PO ANXIETY / AGITATION Last administered on 05/22/18at 12:58; Start 05/09/18 at 17:15; Stop 05/22/18 at 14:26 ; Status DC Fluvoxamine Maleate (Luvox) 100 mg DAILY PO Last administered on 05/15/18at 07: 45; Start 05/10/18 at 09:00; Stop 05/15/18 at 09:01; Status DC Metoclopramide HCl (Reglan) 5 mg HS PO Last administered on 05/22/18at 19:33; Start 05/09/18 at 21:00; Stop 05/23/18 at 11:46; Status DC Mirtazapine (Remeron) 15 mg QHS PO Last administered on 05/22/18at 19:33; Start 05/09/18 at 21:00; Stop 05/23/18 at 11:46; Status DC Oxycodone HCl (Roxicodone) 5 mg PRN Q12HR PRN PO severe pain Last administered on 05/22/18at 20:42; Start 05/09/18 at 17:15; Stop 05/23/18 at 11:46; Status DC Polyethylene Glycol (miraLAX) 17 gm DAILY PO Last administered on 05/19/18at 07: 30; Start 05/10/18 at 09:00; Stop 05/19/18 at 14:36; Status DC Quetiapine Fumarate (SEROquel) 37.5 mg TIDWMEALS PO Last administered on at 13:30; Start 05/10/18 at 08:00; Stop 05/19/18 at 14:37; Status DC Sucralfate (Carafate) 1 gm BID@0700,1600 PO Last administered on 05/19/18at 06: 12; Start 05/10/18 at 07:00; Stop 05/19/18 at 14:37; Status DC Gabapentin (Neurontin) 100 mg TID PO Last administered on 05/12/18at 19:49; Start 05/09/18 at 21:00; Stop 7/14/18 at 21:13; Status DC Famotidine (Pepcid) 20 mg BID PO Last administered on 05/17/18at 08:06; Start at 21:00; Stop 05/17/18 at 13:47; Status DC Cephalexin HCl (Keflex) 250 mg STK-MED ONCE .ROUTE ; Start 05/09/18 at 15:01; Stop 05/12/18 at 17:33; Status DC Gabapentin (Neurontin) 100 mg BID92 PO Last administered on 05/16/18at 16:40; Start 05/13/18 at 09:00; Stop 05/16/18 at 19:18; Status DC Gabapentin (Neurontin) 200 mg QHS PO Last administered on 05/15/18at 19:31; Start 05/13/18 at 21:00; Stop 05/16/18 at 19:18; Status DC Fluvoxamine Maleate (Luvox) 100 mg DAILY PO Last administered on 05/19/18at 07: 30; Start 05/16/18 at 09:00; Stop 05/19/18 at 14:32; Status DC Fluvoxamine Maleate (Luvox) 25 mg DAILY PO Last administered on 05/19/18at 07:29 ; Start 05/16/18 at 09:00; Stop 05/19/18 at 14:33; Status DC Metoclopramide HCl (Reglan) 5 mg TIDAC PO Last administered on 05/19/18at 13:30 ; Start 05/16/18 at 11:30; Stop 05/19/18 at 14:35; Status DC Vitamin D (Vitamin D3) 50,000 unit WEEKLY PO Last administered on 05/23/18at 05: 43; Start 05/16/18 at 11:30; Stop 05/23/18 at 11:46; Status DC Potassium Chloride (Klor-Con) 20 meq DAILY PO Last administered on 05/19/18at 07 :29; Start 05/16/18 at 11:30; Stop 05/19/18 at 14:36; Status DC Pantoprazole Sodium (Protonix) 40 mg DAILYAC PO Last administered on 05/19/18at 07:29; Start 05/16/18 at 11:30; Stop 05/19/18 at 14:36; Status DC Gabapentin (Neurontin) 100 mg DAILY PO Last administered on 05/19/18at 07:30; Start 05/17/18 at 09:00; Stop 05/19/18 at 14:34; Status DC Gabapentin (Neurontin) 200 mg BID@1400,2100 PO Last administered on 05/19/18at 13:31; Start 05/16/18 at 21:00; Stop 05/19/18 at 14:34; Status DC Fluvoxamine Maleate (Luvox) 100 mg DAILY07 PO Last administered on 05/23/18at 05 :43; Start 05/20/18 at 07:00; Stop 05/23/18 at 11:46; Status DC Fluvoxamine Maleate (Luvox) 25 mg DAILY07 PO Last administered on 05/23/18at 05: 43; Start 05/20/18 at 07:00; Stop 05/23/18 at 11:46; Status DC Gabapentin (Neurontin) 100 mg DAILY07 PO Last administered on 05/23/18at 05:45; Start 05/20/18 at 07:00; Stop 05/23/18 at 11:46; Status DC Gabapentin (Neurontin) 200 mg BID@1300,2100 PO Last administered on 05/22/18at 19:33; Start 05/19/18 at 21:00; Stop 05/23/18 at 11:46; Status DC Metoclopramide HCl (Reglan) 5 mg TID@0700,1300,1700 PO Last administered on at 05:43; Start 05/19/18 at 17:00; Stop 05/23/18 at 11:46; Status DC Pantoprazole Sodium (Protonix) 40 mg DAILY07 PO Last administered on 05/23/18at 05:43; Start 05/20/18 at 07:00; Stop 05/23/18 at 11:46; Status DC Potassium Chloride (Klor-Con) 20 meq DAILY07 PO Last administered on 05/23/18at 05:44; Start 05/20/18 at 07:00; Stop 05/23/18 at 11:46; Status DC Polyethylene Glycol (miraLAX) 17 gm DAILY07 PO Last administered on 05/23/18at 05:45; Start 05/20/18 at 07:00; Stop 05/23/18 at 11:46; Status DC Quetiapine Fumarate (SEROquel) 37.5 mg TID@0700,1300,1700 PO Last administered on 05/23/18at 05:44; Start 05/19/18 at 17:00; Stop 05/23/18 at 11:46; Status DC Sucralfate (Carafate) 1 gm BID@0700,1700 PO Last administered on 05/23/18at 05: 43; Start 05/19/18 at 17:00; Stop 05/23/18 at 11:46; Status DC Saliva Substitute (Biotene Moisturizing Mouth) 2 spray PRN Q2HR PRN PO DRY MOUTH; Start 05/21/18 at 13:30; Stop 05/23/18 at 11:46; Status DC Ondansetron HCl (Zofran Odt) 4 mg PRN Q8HRS PRN PO NAUSEA/VOMITING Last administered on 05/21/18at 16:32; Start 05/21/18 at 16:15; Stop 05/23/18 at 11:46 ; Status DC Alprazolam (Xanax) 0.5 mg PRN Q6HRS PRN PO ANXIETY / AGITATION Last administered on 05/23/18at 09:22; Start 05/22/18 at 14:30; Stop 05/23/18 at 11:46 ; Status DC Active Scripts Active Reported Maalox Advanced Suspension (Mag Hydrox/Aluminum Hyd/Simeth) 355 Ml Oral.susp 15 Ml PO PRN AFTMEALHC PRN Fluvoxamine Maleate 100 Mg Tablet 125 Mg PO DAILY07 Analgesic [place] (Methyl Salicylate/Menthol) 28 Gm Oint...g. 1 Will TP PRN Q6HRS PRN Milk Of Magnesia (Magnesium Hydroxide) 400 Mg/5 Ml Oral.susp 400 Mg PO PRN QHS PRN Acetaminophen 500 Mg Tablet 650 Mg PO PRN Q6HRS PRN Biotene Moisturizing Mouth (Saliva Stimulant Agents Comb.3) 44.3 Ml [place] 2 Sprays MM PRN Q2HR PRN Zofran Odt (Ondansetron) 4 Mg Tab.rapdis 4 Mg PO PRN Q8HRS PRN Gabapentin 100 Mg Capsule 200 Mg PO [id number] Gabapentin 100 Mg Capsule 100 Mg PO DAILY D3-50 (Cholecalciferol (Vitamin D3)) 50,000 Unit Capsule 50,000 Unit PO WEEKLY weekly on Reglan (Metoclopramide Hcl) 10 Mg Tablet 5 Mg PO TIDAC take with meals at 7am, 1pm, 5pm Pantoprazole Sodium 40 Mg Tablet.dr 40 Mg PO DAILY07 Seroquel (Quetiapine Fumarate) 25 Mg Tablet 37.5 Mg PO TIDWMEALS Oxycodone Hcl 5 Mg Capsule 5 Mg PO PRN Q12HR PRN Miralax (Polyethylene Glycol 3350) 17 Gm Powd.pack 17 Gm PO DAILY07 Klor-Con M20 (Potassium Chloride) 20 Meq Tab.er.prt 20 Meq PO DAILY07 Sucralfate 1 Gm Tablet 1 Gm PO BID@0700,1700 Mirtazapine 15 Mg Tablet 15 Mg PO QHS Reglan (Metoclopramide Hcl) 10 Mg Tablet 5 Mg PO HS Alprazolam 0.5 Mg Tablet 0.5 Mg PO PRN Q6HRS PRN I have reviewed the current psychotropics carefully including drug interactions. Risk benefit ratio favors no change other than as noted in my dictated progress note. Diagnosis: Problems: (1) Anxiety disorder (2) Impulse control disorder (3) Major depressive disorder, recurrent episode (4) Panic disorder with agoraphobia and severe panic attacks (5) Obsessive compulsive disorder MELISSA BASHIR MD May 24, 2018 20:31
== END 2018-05-23 10:45 | disposition home or self-care (01) | DRG 885 ==
LOC: ER 13:32 → GEROPSY 15:19
PROVIDERS: ADMIT Psychiatry & Neurology Psychiatry; ATTEND Psychiatry & Neurology Psychiatry
DX: F31.5 Bipolar disorder, current episode depressed, severe, with psychotic features (principal); N39.0 Urinary tract infection, site not specified; F09 Unspecified mental disorder due to known physiological condition; F40.01 Agoraphobia with panic disorder; F41.1 Generalized anxiety disorder; F42.9 Obsessive-compulsive disorder, unspecified; Z96.641 Presence of right artificial hip joint; F63.9 Impulse disorder, unspecified; G89.29 Other chronic pain; I45.81 Long QT syndrome; K21.9 Gastro-esophageal reflux disease without esophagitis; K31.84 Gastroparesis; K59.09 Other constipation; Z85.3 Personal history of malignant neoplasm of breast; Z79.899 Other long term (current) drug therapy
CPT/HCPCS: 36415; 74021; 80053; 80061; 81001; 82306; 82553; 82607; 83036; 83540; 83550; 83735; 84436; 84443; 84480; 84484; 85025; 86592; 87086; 93005; 93306; J8597; Q0162; 99285-25

== ENCOUNTER 2019-02-12 23:42 | Emergency (ER) | payer MEDICARE ==
[~2019-02-12] VITALS: Ht 160 cm; Wt 54.0 kg
[~2019-02-12 23:42] MED LIST changes: +ACET500T68 PO; +FLUV100T2 PO; +FLUV25TA PO; +GABA-585 PO; +MAGN400O7 PO; +ONDA4TAB10 PO; +SALI44.3 MM; -SENN-79 PO; +SENN-80 PO
--- NOTE | 2019-02-12 23:47 | ED.ADGEN ---
Past History Past Medical History: Anxiety, Constipation, Dementia, Depression, GERD, Heart Disease, Hypertension, Other Past Medical History Breast Cancer Past Surgical History: Cancer Surgery, Other Alcohol Use: None Drug Use: None Adult General Chief Complaint Chief Complaint ".. I so nervous.... And anxious.... my stomach hurts may be something wrong.. HPI HPI Patient is a 73 year old female who presents with above hx and complaints generalized abd. pain and shaking. Pt. seen out [facility] reportedly a negative work up and negative CT scan. Pt. also seen with primary, and nurse practicer. Pt. has been eating tums. Pt. on multiple depression meds and anxiety meds. Pt,. prior admits to [facility]. reports she has become markedly increased agitation and anxiety. P:t. reports increase insomnia. Pt reports compliance with meds. Pt. denies suicidal ideation. Patient has history of esophageal dysphagia, COPD, dementia, gastroparesis, coronary artery disease, GERD, breast cancer, irritable bowel syndrome, migraine, osteoporosis, depression and anxiety disorder. Patient denies any intake of any bad food. No recent travel. No specific ill contacts. Did receive ED evaluation on 417 at [place]. Reviewed ED record. CT at that time showed no acute in her abdomen abnormalities or inflammation. Some distal colon diverticulosis but no diverticulitis. Review of Systems Review of Systems Constitutional: Denies fever or chills [] Eyes: Denies change in visual acuity, redness, or eye pain [] HENT: Denies nasal congestion or sore throat [] Respiratory: Denies cough or shortness of breath [] Cardiovascular: No additional information not addressed in HPI [] GI: epigastric abdominal pain, nausea,. vomiting, bloody stools or diarrhea [ ]Constipation : Denies dysuria or hematuria [] Musculoskeletal: Denies back pain or joint pain [] Integument: Denies rash or skin lesions [] Neurologic: Denies headache, focal weakness or sensory changes [] Tremors Endocrine: Denies polyuria or polydipsia [] All other systems were reviewed and found to be within normal limits, except as documented in this note. Family History Family History Noncontributory Current Medications Current Medications Current Medications Medications (Trade) Dose Ordered Sig/Tushar Start Time Stop Time Status Last Admin Dose Admin Lactated Ringer's 1,000 ml @ 1,000 mls/hr Q1H 02/13/19 00:30 02/13/19 01:29 DC 02/13/19 00:47 1,000 MLS/HR Lorazepam (Ativan) 2 mg 1X ONCE 02/13/19 02:00 02/13/19 02:00 DC 02/13/19 01:39 2 MG Allergies Allergies Allergies Coded Allergies Type Severity Reaction Last Updated Verified No Known Drug Allergies 09/28/17 No Physical Exam Physical Exam Constitutional: in acute emotional distress, non-toxic appearance. [] HENT: Normocephalic, atraumatic, bilateral external ears normal, oropharynx moist, no oral exudates, nose normal. [] Eyes: PERRLA, EOMI, conjunctiva normal, no discharge. Glasses Neck: Normal range of motion, no tenderness, supple, no stridor. [] Cardiovascular:Heart rate regular rhythm, no murmur [] Lungs & Thorax: Bilateral breath sounds equal at apexes with scatted wheezes on auscultation [] Old surgery scars. Abdomen: Bowel sounds normal, soft, no tenderness, no masses, no pulsatile masses. [] Skin: Warm, dry, no erythema, no rash. [] Back: No tenderness, no CVA tenderness. [] Extremities: No tenderness, no cyanosis, no clubbing, ROM intact, no edema. [] Right hip scar. Arthritic changes. Neurologic: Alert and oriented X 3, no gross motor or sensory function sits, no focal deficits noted. []Tremor. DTRs +2 patella and brachial. Tremor Psychologic: Affect anxious, judgement normal, mood depressed. Current Patient Data Vital Signs Vital Signs Date Time Temp Pulse Resp B/P (MAP) Pulse Ox O2 Delivery O2 Flow Rate FiO2 02/13/19 01:48 82 18 115/87 (96) 96 Room Air 02/12/19 23:42 99.2 Lab Results Laboratory Tests Test 02/12/19 23:55 02/13/19 00:30 Urine Collection Type Unknown Urine Color Yellow Urine Clarity Clear Urine pH 6.5 Urine Specific [place] 1.020 Urine Protein Neg (NEG-TRACE) Urine Glucose (UA) Neg mg/dL (NEG) Urine Ketones (Stick) Trace mg/dL (NEG) Urine Blood Neg (NEG) Urine Nitrite Neg (NEG) Urine Bilirubin Neg (NEG) Urine Urobilinogen Dipstick 0.2 mg/dL (0.2 mg/dL) Urine Leukocyte Esterase Mod (NEG) Urine RBC 0 /HPF (0-2) Urine WBC 1-4 /HPF (0-4) Urine Squamous Epithelial Cells Occ /LPF Urine Bacteria 0 /HPF (0-FEW) Urine Opiates Screen Neg (NEG) Urine Methadone Screen Neg (NEG) Urine Barbiturates Neg (NEG) Urine Phencyclidine Screen Neg (NEG) Urine Amphetamine/Methamphetamine Neg (NEG) Urine Benzodiazepines Screen Pos (NEG) Urine Cocaine Screen Neg (NEG) Urine Cannabinoids Screen Neg (NEG) Urine Ethyl Alcohol Neg (NEG) White Blood Count 3.8 x10^3/uL (4.0-11.0) L Red Blood Count 3.65 x10^6/uL (3.50-5.40) Hemoglobin 12.4 g/dL (12.0-15.5) Hematocrit 36.7 % (36.0-47.0) Mean Corpuscular Volume 101 fL (79-100) H Mean Corpuscular Hemoglobin 34 pg (25-35) Mean Corpuscular Hemoglobin Concent 34 g/dL (31-37) Red Cell Distribution Width 13.1 % (11.5-14.5) Platelet Count 206 x10^3/uL (140-400) Neutrophils (%) (Auto) 58 % (31-73) Lymphocytes (%) (Auto) 28 % (24-48) Monocytes (%) (Auto) 12 % (0-9) H Eosinophils (%) (Auto) 1 % (0-3) Basophils (%) (Auto) 1 % (0-3) Neutrophils # (Auto) 2.2 x10^3uL (1.8-7.7) Lymphocytes # (Auto) 1.1 x10^3/uL (1.0-4.8) Monocytes # (Auto) 0.5 x10^3/uL (0.0-1.1) Eosinophils # (Auto) 0.1 x10^3/uL (0.0-0.7) Basophils # (Auto) 0.0 x10^3/uL (0.0-0.2) Prothrombin Time 11.5 SEC (9.4-11.4) H Prothrombin Time INR 1.2 (0.9-1.1) H PTT 25 SEC (23-33) Sodium Level 141 mmol/L (136-145) Potassium Level 3.7 mmol/L (3.5-5.1) Chloride Level 103 mmol/L (98-107) Carbon Dioxide Level 30 mmol/L (21-32) Anion Gap 8 (6-14) Blood Urea Nitrogen 12 mg/dL (7-20) Creatinine 1.0 mg/dL (0.6-1.0) Estimated GFR (Cockcroft-Gault) 54.3 Glucose Level 87 mg/dL (70-99) Calcium Level 9.6 mg/dL (8.5-10.1) Magnesium Level 1.8 mg/dL (1.8-2.4) Total Bilirubin 0.4 mg/dL (0.2-1.0) Direct Bilirubin 0.1 mg/dL (0.0-0.2) Aspartate Amino Transferase (AST) 27 U/L (15-37) Alanine Aminotransferase (ALT) 23 U/L (14-59) Alkaline Phosphatase 59 U/L (46-116) Creatine Kinase 222 U/L (26-192) H Troponin I Quantitative < 0.017 ng/mL (0-0.055) Total Protein 7.2 g/dL (6.4-8.2) Albumin 3.7 g/dL (3.4-5.0) Amylase Level 40 U/L (25-115) Lipase 97 U/L (73-393) EKG EKG My interpretation EKG shows sinus rhythm at 70 bpm. No findings acute STEMI of contralateral changes.[] Radiology/Procedures Radiology/Procedures My interpretation of acute abdomen film shows COPD type pattern. No large infiltrate. No free air in the diaphragm. Does have clips from previous breast cancer surgery on left. Degenerative joint changes. Does have findings of scoliosis and kyphosis. Right hip prosthesis. Increased stool. Nonobstructive bowel gas pattern.[] Course & Med Decision Making Course & Med Decision Making Pertinent Labs and Imaging studies reviewed. (See chart for details) Discussed labs and x-ray results with patient and . Patient declines admission at this time. Will call in the a.m. Suspect [] Final Impression Final Impression 1. Abdomen Pain 2. Anxiety 3. Depression[] Dragon Disclaimer Dragon Disclaimer This electronic medical record was generated, in whole or in part, using a voice recognition dictation system. Discharge Summary Visit Information Final Diagnosis Problems Medical Problems: (1) Abdominal pain Status: Acute (2) Anxiety Status: Acute (3) Tremors of nervous system Status: Acute Brief Hospital Course Allergies Allergies Coded Allergies Type Severity Reaction Last Updated Verified No Known Drug Allergies 09/28/17 No Vital Signs Vital Signs Date Time Temp Pulse Resp B/P (MAP) Pulse Ox O2 Delivery O2 Flow Rate FiO2 02/13/19 01:48 82 18 115/87 (96) 96 Room Air 02/12/19 23:42 99.2 Lab Results Laboratory Tests Test 02/12/19 23:55 02/13/19 00:30 Urine Collection Type Unknown Urine Color Yellow Urine Clarity Clear Urine pH 6.5 Urine Specific [place] 1.020 Urine Protein Neg (NEG-TRACE) Urine Glucose (UA) Neg mg/dL (NEG) Urine Ketones (Stick) Trace mg/dL (NEG) Urine Blood Neg (NEG) Urine Nitrite Neg (NEG) Urine Bilirubin Neg (NEG) Urine Urobilinogen Dipstick 0.2 mg/dL (0.2 mg/dL) Urine Leukocyte Esterase Mod (NEG) Urine RBC 0 /HPF (0-2) Urine WBC 1-4 /HPF (0-4) Urine Squamous Epithelial Cells Occ /LPF Urine Bacteria 0 /HPF (0-FEW) Urine Opiates Screen Neg (NEG) Urine Methadone Screen Neg (NEG) Urine Barbiturates Neg (NEG) Urine Phencyclidine Screen Neg (NEG) Urine Amphetamine/Methamphetamine Neg (NEG) Urine Benzodiazepines Screen Pos (NEG) Urine Cocaine Screen Neg (NEG) Urine Cannabinoids Screen Neg (NEG) Urine Ethyl Alcohol Neg (NEG) White Blood Count 3.8 x10^3/uL (4.0-11.0) Red Blood Count 3.65 x10^6/uL (3.50-5.40) Hemoglobin 12.4 g/dL (12.0-15.5) Hematocrit 36.7 % (36.0-47.0) Mean Corpuscular Volume 101 fL (79-100) Mean Corpuscular Hemoglobin 34 pg (25-35) Mean Corpuscular Hemoglobin Concent 34 g/dL (31-37) Red Cell Distribution Width 13.1 % (11.5-14.5) Platelet Count 206 x10^3/uL (140-400) Neutrophils (%) (Auto) 58 % (31-73) Lymphocytes (%) (Auto) 28 % (24-48) Monocytes (%) (Auto) 12 % (0-9) Eosinophils (%) (Auto) 1 % (0-3) Basophils (%) (Auto) 1 % (0-3) Neutrophils # (Auto) 2.2 x10^3uL (1.8-7.7) Lymphocytes # (Auto) 1.1 x10^3/uL (1.0-4.8) Monocytes # (Auto) 0.5 x10^3/uL (0.0-1.1) Eosinophils # (Auto) 0.1 x10^3/uL (0.0-0.7) Basophils # (Auto) 0.0 x10^3/uL (0.0-0.2) Prothrombin Time 11.5 SEC (9.4-11.4) Prothromb Time International Ratio 1.2 (0.9-1.1) Activated Partial Thromboplast Time 25 SEC (23-33) Sodium Level 141 mmol/L (136-145) Potassium Level 3.7 mmol/L (3.5-5.1) Chloride Level 103 mmol/L (98-107) Carbon Dioxide Level 30 mmol/L (21-32) Anion Gap 8 (6-14) Blood Urea Nitrogen 12 mg/dL (7-20) Creatinine 1.0 mg/dL (0.6-1.0) Estimated GFR (Cockcroft-Gault) 54.3 Glucose Level 87 mg/dL (70-99) Calcium Level 9.6 mg/dL (8.5-10.1) Magnesium Level 1.8 mg/dL (1.8-2.4) Total Bilirubin 0.4 mg/dL (0.2-1.0) Direct Bilirubin 0.1 mg/dL (0.0-0.2) Aspartate Amino Transf (AST/SGOT) 27 U/L (15-37) Alanine Aminotransferase (ALT/SGPT) 23 U/L (14-59) Alkaline Phosphatase 59 U/L (46-116) Creatine Kinase 222 U/L (26-192) Troponin I Quantitative < 0.017 ng/mL (0-0.055) Total Protein 7.2 g/dL (6.4-8.2) Albumin 3.7 g/dL (3.4-5.0) Amylase Level 40 U/L (25-115) Lipase 97 U/L (73-393) Brief Hospital Course Ms. Mckeon is a 73 old female who presented with abdomen pain, anxiety and tremors. Discharge Information Condition at Discharge: Improved, Stable Disposition/Orders: D/C to Home Dischare Medications Current Medications Lactated Ringer's 1,000 ml @ 1,000 mls/hr Q1H IV Last administered on at 00:47; Admin Dose 1,000 MLS/HR; Start 02/13/19 at 00:30; Stop 02/13/19 at 01:29; Status DC Lorazepam (Ativan) 2 mg 1X ONCE PO Last administered on 02/13/19at 01:39; Admin Dose 2 MG; Start 02/13/19 at 02:00; Stop 02/13/19 at 02:00; Status DC Active Scripts Active Reported Maalox Advanced Suspension (Mag Hydrox/Aluminum Hyd/Simeth) 355 Ml Oral.susp 15 Ml PO PRN AFTMEALHC PRN Fluvoxamine Maleate 100 Mg Tablet 125 Mg PO DAILY07 Analgesic [place] (Methyl Salicylate/Menthol) 28 Gm Oint...g. 1 Will TP PRN Q6HRS PRN Milk Of Magnesia (Magnesium Hydroxide) 400 Mg/5 Ml Oral.susp 400 Mg PO PRN QHS PRN Acetaminophen 500 Mg Tablet 650 Mg PO PRN Q6HRS PRN Biotene Moisturizing Mouth (Saliva Stimulant Agents Comb.3) 44.3 Ml [place] 2 Sprays MM PRN Q2HR PRN Zofran Odt (Ondansetron) 4 Mg Tab.rapdis 4 Mg PO PRN Q8HRS PRN Gabapentin 100 Mg Capsule 200 Mg PO [id number] Gabapentin 100 Mg Capsule 100 Mg PO DAILY D3-50 (Cholecalciferol (Vitamin D3)) 50,000 Unit Capsule 50,000 Unit PO WEEKLY weekly on Reglan (Metoclopramide Hcl) 10 Mg Tablet 5 Mg PO TIDAC take with meals at 7am, 1pm, 5pm Pantoprazole Sodium 40 Mg Tablet.dr 40 Mg PO DAILY07 Seroquel (Quetiapine Fumarate) 25 Mg Tablet 37.5 Mg PO TIDWMEALS Oxycodone Hcl 5 Mg Capsule 5 Mg PO PRN Q12HR PRN Miralax (Polyethylene Glycol 3350) 17 Gm Powd.pack 17 Gm PO DAILY07 Klor-Con M20 (Potassium Chloride) 20 Meq Tab.er.prt 20 Meq PO DAILY07 Sucralfate 1 Gm Tablet 1 Gm PO BID@0700,1700 Mirtazapine 15 Mg Tablet 15 Mg PO QHS Reglan (Metoclopramide Hcl) 10 Mg Tablet 5 Mg PO HS Alprazolam 0.5 Mg Tablet 0.5 Mg PO PRN Q6HRS PRN Dragon Disclaimer This chart was dictated in whole or in part using Voice Recognition software in a busy, high-work load, and often noisy Emergency Department environment. It may contain unintended and wholly unrecognized errors or omissions. NAINA VASQUEZ MD Feb 12, 2019 23:47
[2019-02-13] MEDS ORDERED: IV RINGERS SOLUTION,LACTATED 1,000 ML IV SCH (00:30)
[2019-02-13 00:49] LABS: BASO % 1 % (0-3); EOS # 0.1 x10^3/uL (0.0-0.7); EOS % 1 % (0-3); HEMATOCRIT 36.7 % (36.0-47.0); HEMOGLOBIN 12.4 g/dL (12.0-15.5); LYMPH # 1.1 x10^3/uL (1.0-4.8); LYMPH % 28 % (24-48); MEAN CORPUSCULAR HEMOGLOBIN 34 pg (25-35); MEAN CORPUSCULAR HGB CONC 34 g/dL (31-37); MEAN CORPUSCULAR VOLUME 101 fL (79-100); MONO # 0.5 x10^3/uL (0.0-1.1); MONO % 12 % (0-9); NEUT # 2.2 x10^3uL (1.8-7.7); NEUT % 58 % (31-73); PLATELET COUNT 206 x10^3/uL (140-400); RED BLOOD COUNT 3.65 x10^6/uL (3.50-5.40); RED CELL DISTRIBUTION WIDTH 13.1 % (11.5-14.5); WHITE BLOOD COUNT 3.8 x10^3/uL (4.0-11.0)
[2019-02-13 00:57] LABS: BACTERIA,URINE 0 /HPF (0-FEW); BILIRUBIN,URINE NEG (NEG); CLARITY,URINE CLEAR; COLOR,URINE YELLOW; GLUCOSE,URINE NEG (NEG); NITRITE,URINE NEG (NEG); RBC,URINE 0 /HPF (0-2); SQUAMOUS EPITHELIAL CELL,UR OCC /LPF; UROBILINOGEN,URINE 0.2 mg/dL (0.2 mg/dL)
[2019-02-13 00:59] LABS: AMPHETAMINE/METHAMPHETAMINE NEG (NEG); BARBITURATES NEG (NEG); BENZODIAZEPINES POS (NEG); CANNABINOIDS NEG (NEG); COCAINE NEG (NEG); METHADONE NEG (NEG); OPIATES NEG (NEG); PHENCYCLIDINE NEG (NEG)
[2019-02-13 01:02] LABS: ALBUMIN 3.7 g/dL (3.4-5.0); CALCIUM 9.6 mg/dL (8.5-10.1); DIRECT BILIRUBIN 0.1 mg/dL (0.0-0.2); GFR 54.3; MAGNESIUM 1.8 mg/dL (1.8-2.4); POTASSIUM 3.7 mmol/L (3.5-5.1); TOTAL BILIRUBIN 0.4 mg/dL (0.2-1.0); TOTAL PROTEIN 7.2 g/dL (6.4-8.2)
[2019-02-13 01:48] VITALS: BP 115/87
[2019-02-13] MEDS ORDERED: LORazepam 1 MG TABLET PO ONE (02:00)
--- NOTE | 2019-02-13 08:47 | RAD ---
Acute abdomen series with chest, 02/13/2019: HISTORY: Chest and abdominal pain Comparison is made to a study from 05/12/2018. Gas is present in large and small bowel in a nonspecific pattern. No free air seen in the abdomen. There is no evidence of organomegaly. A right hip prosthesis is in place. There is a moderate thoracolumbar scoliosis. The heart size is normal. Surgical clips are projected over left axillary axillary and left infrahilar regions. Bilateral apical opacities most likely represent pleural/parenchymal scarring. The lung bases are clear. There is no evidence of pleural fluid. IMPRESSION: 1. No acute abdominal abnormality is detected. 2. Bilateral upper lobe opacities compatible with pleural-parenchymal scarring. Electronically signed by: John Mccauley MD (02/13/2019 8:44 AM) [facility]
--- NOTE | 2019-02-13 21:19 | EKG ---
[address] [address] Test Date: 2019-02-13 Test Time: 00:55:52 Pat Name: CLAY TRAN Department: Room: Gender: F Biology Intern: : 1945 Requested By: NAINA VASQUEZ Order Number: [id number] Reading MD: Balwinder Bedoya Measurements Intervals [place] Rate: 70 P: 53 SC: 166 QRS: 77 QRSD: 66 T: 62 QT: 396 QTc: 430 Interpretive Statements SINUS RHYTHM Electronically Signed On 02-18-2019 13:11:42 CDT by Balwinder Bedoya
== END 2019-02-13 01:45 | disposition home or self-care (01) ==
LOC: ER 23:42
DX: R10.84 Generalized abdominal pain (principal); R10.13 Epigastric pain; F41.9 Anxiety disorder, unspecified; F32.9 Major depressive disorder, single episode, unspecified; R25.1 Tremor, unspecified; F03.90 Unspecified dementia, unspecified severity, without behavioral disturbance, psychotic disturbance, mood disturbance, and anxiety; K21.9 Gastro-esophageal reflux disease without esophagitis; I11.9 Hypertensive heart disease without heart failure
CPT/HCPCS: 36415; 74022; 80048; 80076; 80307; 81001; 82150; 82550; 83690; 83735; 84443; 84484; 85025; 85610; 85730; 87086; 93005; 99285; J7120

== ENCOUNTER 2019-02-20 22:15 | Inpatient (IN) | payer MEDICARE ==
[~2019-02-20] VITALS: Ht 160 cm; Wt 54.7 kg
--- NOTE | 2019-02-20 22:21 | ED.ADGEN ---
Past History Past Medical History: Anxiety, Bipolar, Constipation, Dementia, Depression, GERD, Heart Disease, Hypertension, Other Past Surgical History: Cancer Surgery, Other Past Surgical History Rt.Hip Replacement Alcohol Use: None Drug Use: None Adult General Chief Complaint Chief Complaint ".. I am just having too much anxiety...... I need to be admitted... upstairs... I ve been there before...".. " I can't sleep..... I shake...... I need my meds .... re- adjusted... " " I am just so ....depressed...".."...I ... can't live.... like this...".. Nothing.... is ...working...." HPI HPI Patient is a 73 year old female who presents with above hx and anxiety., insomnia, depression, panic disorder, bipolar, dementia, obsessive compulsive disorder.. Patient denies any change in her medications. No history of trauma or falls. Patient has not had any travel or specific ill contacts. Patient has had prior admission to senior behavioral unit for major depressive disorder, panic disorder, anxiety, and bipolar. Patient has had past history of significant mood swings with worsening depression symptoms. Sumit Mckeon advised he works time study observer and has not be to calm her to point where can manage with out him at home. Advised her dementia, agitation, depression and anxiety now as bad or worse than ever. Pt. has many somatic complaints. On prior ED visits pt.declined admission, but tonight pt. requesting admission. Patient tonight is very agitated. Pt. normally follows with primary Dr. Cosme ,[place] [facility]. Pt. has followed with Dr. Peterson in past. Review of Systems Review of Systems Constitutional: Denies fever or chills [] Eyes: Denies change in visual acuity, redness, or eye pain [] HENT: Denies nasal congestion or sore throat [] Respiratory: Denies cough or shortness of breath [] Cardiovascular: No additional information not addressed in HPI [] GI: Denies abdominal pain, nausea, vomiting, bloody stools or diarrhea [] : Denies dysuria or hematuria [] Musculoskeletal: Denies back pain or joint pain [] Weakness- generalized Integument: Denies rash or skin lesions [] Neurologic: Denies headache, focal weakness or sensory changes []Increased tremor. Endocrine: Denies polyuria or polydipsia [] All other systems were reviewed and found to be within normal limits, except as documented in this note. Family History Family History Non-contributory Current Medications Current Medications Current Medications Medications (Trade) Dose Ordered Sig/Tushar Start Time Stop Time Status Last Admin Dose Admin Cephalexin HCl (Keflex) 500 mg 1X ONCE 02/21/19 00:30 02/21/19 00:31 DC 02/21/19 02:07 500 MG Lactated Ringer's 1,000 ml @ 1,000 mls/hr Q1H 02/20/19 23:00 02/20/19 23:59 DC 02/21/19 02:06 1,000 MLS/HR Allergies Allergies Allergies Coded Allergies Type Severity Reaction Last Updated Verified No Known Drug Allergies 09/28/17 No Physical Exam Physical Exam Constitutional: Appears in acute emotional distress, agitated in appearance. Very restless. HENT: Normocephalic, atraumatic, bilateral external ears normal, oropharynx moist, no oral exudates, nose normal. [] Eyes: PERRLA, EOMI, conjunctiva normal, no discharge. Glasses. Neck: Normal range of motion, no tenderness, supple, no stridor. [] Cardiovascular:Heart rate regular rhythm, no murmur [] Lungs & Thorax: Bilateral breath sounds equal apexes with few basilar wheezes on auscultation []Old surgery scar Lt. Abdomen: Bowel sounds normal, soft, no tenderness, no masses, no pulsatile masses. Mild distention. Skin: Warm, dry, no erythema, no rash. Poor turgor. Back: No tenderness, no CVA tenderness. Kyphosis and scoliosis. Extremities: No tenderness, no cyanosis, no clubbing, ROM intact, no edema. [] Arthritic changes. Pt. complaints of generalized weakness and fatigue. Rt. Hip scar. Neurologic: Alert and oriented X 3,moves all ext. on request, peripheral sensation present, intentional tremor, no gross focal deficits noted. Walks with a shuffling gait. ] Psychologic: Affect very anxious and agitated. Her judgement appears limited at this time, mood very depressed. Denies suicidal plan. Poor eye contact. States -"I can not live like this.." Current Patient Data Vital Signs Vital Signs Date Time Temp Pulse Resp B/P (MAP) Pulse Ox O2 Delivery O2 Flow Rate FiO2 02/21/19 05:15 97.5 61 14 111/61 (78) 96 Room Air Lab Results Laboratory Tests Test 02/20/19 22:33 02/20/19 23:56 02/21/19 01:06 Urine Collection Type Unknown Urine Color Yellow Urine Clarity Hazy Urine pH 6.5 Urine Specific Lafe 1.020 Urine Protein Neg (NEG-TRACE) Urine Glucose (UA) Neg mg/dL (NEG) Urine Ketones (Stick) Trace mg/dL (NEG) Urine Blood Trace (NEG) Urine Nitrite Neg (NEG) Urine Bilirubin Neg (NEG) Urine Urobilinogen Dipstick 0.2 mg/dL (0.2 mg/dL) Urine Leukocyte Esterase Large (NEG) Urine RBC 0 /HPF (0-2) Urine WBC 5-10 /HPF (0-4) Urine Squamous Epithelial Cells Few /LPF Urine Bacteria Few /HPF (0-FEW) Urine Opiates Screen Neg (NEG) Urine Methadone Screen Neg (NEG) Urine Barbiturates Neg (NEG) Urine Phencyclidine Screen Neg (NEG) Urine Amphetamine/Methamphetamine Neg (NEG) Urine Benzodiazepines Screen Pos (NEG) Urine Cocaine Screen Neg (NEG) Urine Cannabinoids Screen Neg (NEG) Urine Ethyl Alcohol Neg (NEG) White Blood Count 3.4 x10^3/uL (4.0-11.0) L Red Blood Count 3.61 x10^6/uL (3.50-5.40) Hemoglobin 12.1 g/dL (12.0-15.5) Hematocrit 36.2 % (36.0-47.0) Mean Corpuscular Volume 100 fL (79-100) Mean Corpuscular Hemoglobin 34 pg (25-35) Mean Corpuscular Hemoglobin Concent 33 g/dL (31-37) Red Cell Distribution Width 13.1 % (11.5-14.5) Platelet Count 218 x10^3/uL (140-400) Neutrophils (%) (Auto) 53 % (31-73) Lymphocytes (%) (Auto) 33 % (24-48) Monocytes (%) (Auto) 12 % (0-9) H Eosinophils (%) (Auto) 1 % (0-3) Basophils (%) (Auto) 1 % (0-3) Neutrophils # (Auto) 1.8 x10^3uL (1.8-7.7) Lymphocytes # (Auto) 1.1 x10^3/uL (1.0-4.8) Monocytes # (Auto) 0.4 x10^3/uL (0.0-1.1) Eosinophils # (Auto) 0.0 x10^3/uL (0.0-0.7) Basophils # (Auto) 0.0 x10^3/uL (0.0-0.2) Erythrocyte Sedimentation Rate 10 (0-25) Sodium Level 142 mmol/L (136-145) Potassium Level 3.6 mmol/L (3.5-5.1) Chloride Level 105 mmol/L (98-107) Carbon Dioxide Level 29 mmol/L (21-32) Anion Gap 8 (6-14) Blood Urea Nitrogen 18 mg/dL (7-20) Creatinine 0.8 mg/dL (0.6-1.0) Estimated GFR (Cockcroft-Gault) 70.3 Glucose Level 81 mg/dL (70-99) Calcium Level 9.2 mg/dL (8.5-10.1) Magnesium Level 1.9 mg/dL (1.8-2.4) Total Bilirubin 0.3 mg/dL (0.2-1.0) Direct Bilirubin 0.1 mg/dL (0.0-0.2) Aspartate Amino Transferase (AST) 23 U/L (15-37) Alanine Aminotransferase (ALT) 18 U/L (14-59) Alkaline Phosphatase 64 U/L (46-116) Creatine Kinase 225 U/L (26-192) H Troponin I Quantitative < 0.017 ng/mL (0-0.055) FT-Git-P-Type Natriuretic Peptide 97 pg/mL (0-124) Total Protein 7.2 g/dL (6.4-8.2) Albumin 3.6 g/dL (3.4-5.0) Lipase 119 U/L (73-393) Prothrombin Time 11.7 SEC (9.4-11.4) H Prothrombin Time INR 1.2 (0.9-1.1) H PTT 25 SEC (23-33) D-Dimer (Jackie) 0.41 mg/L (0.00-0.50) EKG EKG My interpretation EKG shows sinus rhythm at 81 bpm. There is some nonspecific contour changes anterior lateral leads. But no findings acute STEMI of contralateral changes.[] Radiology/Procedures Radiology/Procedures My interpretation of chest x-ray shows chronic changes. Previous surgical clips in left breast area. DJD joint changes. No acute interval change.[] Kyphosis and scoliosis. Course & Med Decision Making Course & Med Decision Making Pertinent Labs and Imaging studies reviewed. (See chart for details) Still awaiting Tele- Psych. call back at 245 hrs. Tele-Psych. called back at 3:30- currently interviewing pt. See report Dr. Peyton Poe- Recommends admit for safety and stabilization. 03:56 hrs. Still awaiting review by [facility]- nursing. 0430 Hrs. [facility]- called back 0500 advised pt could be admitted. Pt. currently being transfer to [facility] at 05:27 [] Final Impression Final Impression 1. Anxiety[] 2. Depression 3. Dementia 4. UTI- (specimen limited) Dragon Disclaimer Dragkrish Disclaimer This electronic medical record was generated, in whole or in part, using a voice recognition dictation system. Discharge Summary Brief Hospital Course Allergies Allergies Coded Allergies Type Severity Reaction Last Updated Verified No Known Drug Allergies 09/28/17 No Vital Signs Vital Signs Date Time Temp Pulse Resp B/P (MAP) Pulse Ox O2 Delivery O2 Flow Rate FiO2 02/21/19 05:15 97.5 61 14 111/61 (78) 96 Room Air Lab Results Laboratory Tests Test 02/20/19 22:33 02/20/19 23:56 02/21/19 01:06 Urine Collection Type Unknown Urine Color Yellow Urine Clarity Hazy Urine pH 6.5 Urine Specific Lafe 1.020 Urine Protein Neg (NEG-TRACE) Urine Glucose (UA) Neg mg/dL (NEG) Urine Ketones (Stick) Trace mg/dL (NEG) Urine Blood Trace (NEG) Urine Nitrite Neg (NEG) Urine Bilirubin Neg (NEG) Urine Urobilinogen Dipstick 0.2 mg/dL (0.2 mg/dL) Urine Leukocyte Esterase Large (NEG) Urine RBC 0 /HPF (0-2) Urine WBC 5-10 /HPF (0-4) Urine Squamous Epithelial Cells Few /LPF Urine Bacteria Few /HPF (0-FEW) Urine Opiates Screen Neg (NEG) Urine Methadone Screen Neg (NEG) Urine Barbiturates Neg (NEG) Urine Phencyclidine Screen Neg (NEG) Urine Amphetamine/Methamphetamine Neg (NEG) Urine Benzodiazepines Screen Pos (NEG) Urine Cocaine Screen Neg (NEG) Urine Cannabinoids Screen Neg (NEG) Urine Ethyl Alcohol Neg (NEG) White Blood Count 3.4 x10^3/uL (4.0-11.0) Red Blood Count 3.61 x10^6/uL (3.50-5.40) Hemoglobin 12.1 g/dL (12.0-15.5) Hematocrit 36.2 % (36.0-47.0) Mean Corpuscular Volume 100 fL (79-100) Mean Corpuscular Hemoglobin 34 pg (25-35) Mean Corpuscular Hemoglobin Concent 33 g/dL (31-37) Red Cell Distribution Width 13.1 % (11.5-14.5) Platelet Count 218 x10^3/uL (140-400) Neutrophils (%) (Auto) 53 % (31-73) Lymphocytes (%) (Auto) 33 % (24-48) Monocytes (%) (Auto) 12 % (0-9) Eosinophils (%) (Auto) 1 % (0-3) Basophils (%) (Auto) 1 % (0-3) Neutrophils # (Auto) 1.8 x10^3uL (1.8-7.7) Lymphocytes # (Auto) 1.1 x10^3/uL (1.0-4.8) Monocytes # (Auto) 0.4 x10^3/uL (0.0-1.1) Eosinophils # (Auto) 0.0 x10^3/uL (0.0-0.7) Basophils # (Auto) 0.0 x10^3/uL (0.0-0.2) Erythrocyte Sedimentation Rate 10 (0-25) Sodium Level 142 mmol/L (136-145) Potassium Level 3.6 mmol/L (3.5-5.1) Chloride Level 105 mmol/L (98-107) Carbon Dioxide Level 29 mmol/L (21-32) Anion Gap 8 (6-14) Blood Urea Nitrogen 18 mg/dL (7-20) Creatinine 0.8 mg/dL (0.6-1.0) Estimated GFR (Cockcroft-Gault) 70.3 Glucose Level 81 mg/dL (70-99) Calcium Level 9.2 mg/dL (8.5-10.1) Magnesium Level 1.9 mg/dL (1.8-2.4) Total Bilirubin 0.3 mg/dL (0.2-1.0) Direct Bilirubin 0.1 mg/dL (0.0-0.2) Aspartate Amino Transf (AST/SGOT) 23 U/L (15-37) Alanine Aminotransferase (ALT/SGPT) 18 U/L (14-59) Alkaline Phosphatase 64 U/L (46-116) Creatine Kinase 225 U/L (26-192) Troponin I Quantitative < 0.017 ng/mL (0-0.055) PO-Lxe-R-Type Natriuretic Peptide 97 pg/mL (0-124) Total Protein 7.2 g/dL (6.4-8.2) Albumin 3.6 g/dL (3.4-5.0) Lipase 119 U/L (73-393) Prothrombin Time 11.7 SEC (9.4-11.4) Prothromb Time International Ratio 1.2 (0.9-1.1) Activated Partial Thromboplast Time 25 SEC (23-33) D-Dimer (Jackie) 0.41 mg/L (0.00-0.50) Brief Hospital Course Ms. Mckeon is a 73 old female who presented with severe depression exacerbation and anxiety. Admitted Dr. Peterson and consult to Dr. Duncan. Discharge Information Condition at Discharge: Stable Dischare Medications Current Medications Lactated Ringer's 1,000 ml @ 1,000 mls/hr Q1H IV Last administered on 02/21/19at 02:06; Admin Dose 1,000 MLS/HR; Start 02/20/19 at 23:00; Stop 02/20/19 at 23:59; Status DC Cephalexin HCl (Keflex) 500 mg 1X ONCE PO Last administered on 02/21/19at 02:07; Admin Dose 500 MG; Start 02/21/19 at 00:30; Stop 02/21/19 at 00:31; Status DC Active Scripts Active Reported Maalox Advanced Suspension (Mag Hydrox/Aluminum Hyd/Simeth) 355 Ml Oral.susp 15 Ml PO PRN AFTMEALHC PRN Fluvoxamine Maleate 100 Mg Tablet 125 Mg PO DAILY07 Analgesic [place] (Methyl Salicylate/Menthol) 28 Gm Oint...g. 1 Will TP PRN Q6HRS PRN Milk Of Magnesia (Magnesium Hydroxide) 400 Mg/5 Ml Oral.susp 400 Mg PO PRN QHS PRN Acetaminophen 500 Mg Tablet 650 Mg PO PRN Q6HRS PRN Biotene Moisturizing Mouth (Saliva Stimulant Agents Comb.3) 44.3 Ml [place] 2 Sprays MM PRN Q2HR PRN Zofran Odt (Ondansetron) 4 Mg Tab.rapdis 4 Mg PO PRN Q8HRS PRN Gabapentin 100 Mg Capsule 200 Mg PO [id number] Gabapentin 100 Mg Capsule 100 Mg PO DAILY D3-50 (Cholecalciferol (Vitamin D3)) 50,000 Unit Capsule 50,000 Unit PO WEEKLY weekly on Reglan (Metoclopramide Hcl) 10 Mg Tablet 5 Mg PO TIDAC take with meals at 7am, 1pm, 5pm Pantoprazole Sodium 40 Mg Tablet.dr 40 Mg PO DAILY07 Seroquel (Quetiapine Fumarate) 25 Mg Tablet 37.5 Mg PO TIDWMEALS Oxycodone Hcl 5 Mg Capsule 5 Mg PO PRN Q12HR PRN Miralax (Polyethylene Glycol 3350) 17 Gm Powd.pack 17 Gm PO DAILY07 Klor-Con M20 (Potassium Chloride) 20 Meq Tab.er.prt 20 Meq PO DAILY07 Sucralfate 1 Gm Tablet 1 Gm PO BID@0700,1700 Mirtazapine 15 Mg Tablet 15 Mg PO QHS Reglan (Metoclopramide Hcl) 10 Mg Tablet 5 Mg PO HS Alprazolam 0.5 Mg Tablet 0.5 Mg PO PRN Q6HRS PRN Dragon Disclaimer This chart was dictated in whole or in part using Voice Recognition software in a busy, high-work load, and often noisy Emergency Department environment. It may contain unintended and wholly unrecognized errors or omissions. NAINA VASQUEZ MD Feb 20, 2019 22:21
[2019-02-20] MEDS ORDERED: IV RINGERS SOLUTION,LACTATED 1,000 ML IV SCH (23:00)
--- NOTE | 2019-02-20 23:07 | EKG ---
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 Electronically Signed On 02-27-2019 11:48:28 CDT by Estuardo Hanna
[2019-02-20 23:16] LABS: BARBITURATES NEG (NEG); BENZODIAZEPINES POS (NEG); CANNABINOIDS NEG (NEG); COCAINE NEG (NEG); METHADONE NEG (NEG); OPIATES NEG (NEG); PHENCYCLIDINE NEG (NEG)
[2019-02-20 23:17] LABS: BILIRUBIN,URINE NEG (NEG); CLARITY,URINE HAZY; COLOR,URINE YELLOW; GLUCOSE,URINE NEG (NEG)
[2019-02-20 23:18] LABS: BACTERIA,URINE FEW /HPF (0-FEW); NITRITE,URINE NEG (NEG); RBC,URINE 0 /HPF (0-2); SQUAMOUS EPITHELIAL CELL,UR FEW /LPF; UROBILINOGEN,URINE 0.2 mg/dL (0.2 mg/dL)
[2019-02-20 23:20] LABS: AMPHETAMINE/METHAMPHETAMINE NEG (NEG)
[2019-02-21 00:24] LABS: BASO % 1 % (0-3); EOS % 1 % (0-3); HEMATOCRIT 36.2 % (36.0-47.0); HEMOGLOBIN 12.1 g/dL (12.0-15.5); LYMPH # 1.1 x10^3/uL (1.0-4.8); LYMPH % 33 % (24-48); MEAN CORPUSCULAR HEMOGLOBIN 34 pg (25-35); MEAN CORPUSCULAR HGB CONC 33 g/dL (31-37); MEAN CORPUSCULAR VOLUME 100 fL (79-100); MONO # 0.4 x10^3/uL (0.0-1.1); MONO % 12 % (0-9); NEUT # 1.8 x10^3uL (1.8-7.7); NEUT % 53 % (31-73); PLATELET COUNT 218 x10^3/uL (140-400); RED BLOOD COUNT 3.61 x10^6/uL (3.50-5.40); RED CELL DISTRIBUTION WIDTH 13.1 % (11.5-14.5); WHITE BLOOD COUNT 3.4 x10^3/uL (4.0-11.0)
[2019-02-21] MEDS ORDERED: CEPHALEXIN 250 MG CAPSULE PO ONE (00:30)
[2019-02-21 00:47] LABS: ALBUMIN 3.6 g/dL (3.4-5.0); CALCIUM 9.2 mg/dL (8.5-10.1); CREATININE 0.8 mg/dL (0.6-1.0); DIRECT BILIRUBIN 0.1 mg/dL (0.0-0.2); GFR 70.3; MAGNESIUM 1.9 mg/dL (1.8-2.4); POTASSIUM 3.6 mmol/L (3.5-5.1); TOTAL BILIRUBIN 0.3 mg/dL (0.2-1.0); TOTAL PROTEIN 7.2 g/dL (6.4-8.2)
[2019-02-21 01:28] LABS: SEDIMENTATION RATE 10 (0-25)
[2019-02-21 05:47] VITALS: BP 105/59
[2019-02-21] MEDS ORDERED: MAGNESIUM HYDROXIDE 2,400 MG/30 ML ORAL.SUSP. PO PRN (06:00)
[2019-02-21] MEDS ORDERED: METHYL SALICYLATE/MENTHOL TOPICAL OINTMENT 29GM TUBE. TP PRN (06:00)
[2019-02-21] MEDS ORDERED: TAMS0.4C97 PO (06:07)
[2019-02-21] MEDS ORDERED: FLUV100T2 PO (06:07)
--- NOTE | 2019-02-21 06:44 | NUR ---
Admission Note with Justification for Admission to [facility] Patient admitted to [facility] for protective oversight for emergency stabilization of acute psychiatric crisis. Pt admitted from: Home Mode of arrival: EMS Accompanied By: [facility] Staff Precipitating behaviors that initiated intake and admission: Depression and anxiety and decreased appetite Description of failure of out patient attempts at stabilization in previous setting list behavior and medication trials: failure to follow up with Psych appointments Behaviors and assessment findings upon admission: Anxiety and depression. Appropriate during interactions, withdrawn to room, Drowsy. Remains in room at this time. Plan: Admit for protective oversight for adjustment and stabilization of medications, behaviors and mood. Intense treatment regimen including groups, medication adjustments, therapy, consistent regimen for ADL's, self care, and sleep hygiene. Daily monitoring by Inpatient staff, Psychiatry, and Medical Physician.
[2019-02-21] MEDS ORDERED: POTASSIUM CHLORIDE 20 MEQ TABLET.ER. PO SCH (07:00)
[2019-02-21] MEDS ORDERED: QUEtiapine 25 MG TABLET. PO SCH (07:00)
[2019-02-21] MEDS ORDERED: SUCRALFATE 1 GM TABLET. PO SCH (07:00)
--- NOTE | 2019-02-21 08:52 | RAD ---
PORTABLE CHEST 1V Clinical indications: dyspnea COMPARISON: February 13, 2019. Findings: No acute lung infiltrate or pleural effusion or pulmonary edema or lung mass or pneumothorax is seen. The heart size, pulmonary vasculature, mediastinum and both catherine are unremarkable. Impression: No acute radiographic abnormality is seen. Electronically signed by: Moises Starkey MD (02/21/2019 8:49 AM) [id number]
[2019-02-21] MEDS ORDERED: QUEtiapine 25 MG TABLET. ONE (09:00)
[2019-02-21] MEDS ORDERED: SUCRALFATE 1 GM TABLET. PO ONE (09:00)
[2019-02-21] MEDS ORDERED: METOCLOPRAMIDE 5 MG TABLET ONE ×3 (09:00)
[2019-02-21] MEDS: GABAPENTIN 100 MG CAPSULE. PO SCH ×3 (09:27→19:44)
[2019-02-21] MEDS: PANTOPRAZOLE 40 MG TABLET. PO SCH (09:27)
[2019-02-21] MEDS: METOCLOPRAMIDE 5 MG TABLET PO SCH ×3 (09:27→17:30)
[2019-02-21] MEDS: ALPRAZolam 0.5 MG TABLET PO PRN ×2 (09:32→19:44)
[2019-02-21] MEDS: POLYETHYLENE GLYCOL 3350 17 GM PACKET. PO PRN (10:13)
[2019-02-21] MEDS ORDERED: POLYETHYLENE GLYCOL 3350 17 GM PACKET. PO PRN (10:15)
--- NOTE | 2019-02-21 14:16 | NUR ---
Pt withdrawn and compliant today. Pt states she is anxious this morning and requested a PRN Xanax at 0930. Pt states that she is back to [facility] because she is feeling depressed and anxious because she hasn't been able to drive the last 6 months.
[2019-02-21] MEDS: QUEtiapine 25 MG TABLET. PO SCH ×2 (14:46→19:44)
[2019-02-21 16:06] LABS: THYROXINE 7.2 ug/dL (4.5-12.0)
[2019-02-21 16:15] VITALS: BP 102/65
[2019-02-21] MEDS: SUCRALFATE 1 GM TABLET. PO SCH (17:30)
[2019-02-21] MEDS: MIRTAZAPINE 15 MG TABLET PO SCH (19:43)
[2019-02-21] MEDS: TAMSULOSIN 0.4 MG CAP.ER.24H. PO SCH (19:44)
[2019-02-21 22:08] LABS: HEMOGLOBIN A1C 5.2 % (4.8-5.6)
--- NOTE | 2019-02-21 22:52 | HP ---
ADMIT DATE: 02/21/2019 PSYCHIATRIC ADMISSION HISTORY AND EVALUATION This note covers elements not covered in my initial note of 02/21/2019. IDENTIFYING DATA: The patient is a 73-year-old female who presented back to the Emergency Room at [facility] with her significant other, Sumit, late last night on account of worsening symptoms of depression, anxiety, panic attacks, feeling hopeless, helpless, worthless, marked symptoms of agoraphobia and failure for outpatient psychiatric interventions. She was screened by the tele-psychiatry screeners given her failure of outpatient psychiatric interventions, marked symptoms of depression, anxiety, panic, so it was recommended by them that she should be admitted inpatient for psychiatric stabilization. CHIEF COMPLAINT: ''Things are getting worse. I don't know what to do. Sumit works all day and by myself and my anxiety and depression gets worse." HISTORY OF PRESENT ILLNESS: The patient has a long history of worsening symptoms of depression and anxiety. She has had multiple psychiatric hospitalizations in the past and outpatient psychiatric treatment with myself and a psychologist. She has failed all of these with worsening anxiety, depression, panic attacks recently. No clear history of bipolar disorder, suicidal or homicidal ideation. She has had some short-term memory deficits and often overuses Xanax and then has slurred speech and ataxia as a consequence of this. She has never abused Xanax as such, but the overuse is connected to her marked anxiety. The patient also has a history of marked obsessive compulsive disorder symptoms, repetitive behaviors rumination. PAST PSYCHIATRIC HISTORY: As above. PAST MEDICAL HISTORY: Medical history is positive for gastroparesis, long QT interval, history of malignant neoplasm, chronic constipation, history of recurrent urinary tract infections. Ambulates ad zane. Takes medications whole. DIET: Regular. ALLERGIES: Negative. CODE STATUS: Full code. CURRENT PSYCHOTROPICS: Xanax 0.5 mg q. 6 hours p.r.n., Luvox 50 mg daily and 100 mg at bedtime, Seroquel 37.5 mg t.i.d., Remeron 15 mg at bedtime. FAMILY HISTORY: Noncontributory. SOCIAL HISTORY: The patient lives at home with her significant other, Sumit. Sumit works in construction and is often out all day, which has been the patient's worsens her symptoms being isolated and by herself. We have in the past recommended she start in the day program in social groups locally, but she has not done this. No alcohol or drug abuse, physical, sexual or elder abuse history is noted. She is not known to be a perpetrator. REACTION TO HOSPITALIZATION: The patient is accepting of this. ASSETS: Support by Sumit. She also has a son who is supportive of her. MENTAL STATUS EXAMINATION: The patient was seen individually on morning of 02/21/2019. She is well oriented, readily recognized me. Speech is coherent, low in volume. Abstraction is fair, computation impaired, language function intact, attention span short. Mood and affect is depressed, anxious. She is somewhat paranoid, very obsessive. No active suicidal or homicidal ideation. LABORATORY DATA: Reviewed. IMPRESSION: Major depressive disorder, recurrent, panic disorder with agoraphobia, anxiety disorder, unspecified; obsessive compulsive disorder, mild cognitive impairment. Rest as above. PLAN: Admit to Geropsychiatry Unit at [facility]. I will see the patient daily individually from a psychiatric standpoint, medical followup with Dr. Duncan. Continue the patient on her current psychotropics, observe baseline, then adjust as clinically indicated. Estimated length of stay is 7-10 days. MAN Scooter BASHIR MD DR: CARRILLO/praful JOB#: [id number] / [id number]
--- NOTE | 2019-02-21 22:55 | PDOC ---
Exam Note: Edwin Note: Please also refer to the separate dictated note~for this date of service dictated separately. Discussed the patient with Nursing staff reviewed the chart.~Reviewed interim history and current functioning. Reviewed vital signs,~Labs/ Radiology~and current medications noted below. Continue current treatment with the changes noted in the dictated addendum note Assessment: Vital Signs: Vital Signs Date Time Temp Pulse Resp B/P (MAP) Pulse Ox O2 Delivery O2 Flow Rate FiO2 02/21/19 16:15 98.4 87 16 102/65 (77) 98 Room Air I&O Intake and Output 02/21/19 07:00 Intake Total 1000 ml Balance 1000 ml IV Total 1000 ml Labs: Laboratory Tests Test 02/20/19 23:56 02/21/19 01:06 02/21/19 06:47 White Blood Count 3.4 x10^3/uL (4.0-11.0) L Red Blood Count 3.61 x10^6/uL (3.50-5.40) Hemoglobin 12.1 g/dL (12.0-15.5) Hematocrit 36.2 % (36.0-47.0) Mean Corpuscular Volume 100 fL (79-100) Mean Corpuscular Hemoglobin 34 pg (25-35) Mean Corpuscular Hemoglobin Concent 33 g/dL (31-37) Red Cell Distribution Width 13.1 % (11.5-14.5) Platelet Count 218 x10^3/uL (140-400) Neutrophils (%) (Auto) 53 % (31-73) Lymphocytes (%) (Auto) 33 % (24-48) Monocytes (%) (Auto) 12 % (0-9) H Eosinophils (%) (Auto) 1 % (0-3) Basophils (%) (Auto) 1 % (0-3) Neutrophils # (Auto) 1.8 x10^3uL (1.8-7.7) Lymphocytes # (Auto) 1.1 x10^3/uL (1.0-4.8) Monocytes # (Auto) 0.4 x10^3/uL (0.0-1.1) Eosinophils # (Auto) 0.0 x10^3/uL (0.0-0.7) Basophils # (Auto) 0.0 x10^3/uL (0.0-0.2) Erythrocyte Sedimentation Rate 10 (0-25) Sodium Level 142 mmol/L (136-145) Potassium Level 3.6 mmol/L (3.5-5.1) Chloride Level 105 mmol/L (98-107) Carbon Dioxide Level 29 mmol/L (21-32) Anion Gap 8 (6-14) Blood Urea Nitrogen 18 mg/dL (7-20) Creatinine 0.8 mg/dL (0.6-1.0) Estimated GFR (Cockcroft-Gault) 70.3 Glucose Level 81 mg/dL (70-99) Calcium Level 9.2 mg/dL (8.5-10.1) Magnesium Level 1.9 mg/dL (1.8-2.4) Total Bilirubin 0.3 mg/dL (0.2-1.0) Direct Bilirubin 0.1 mg/dL (0.0-0.2) Aspartate Amino Transferase (AST) 23 U/L (15-37) Alanine Aminotransferase (ALT) 18 U/L (14-59) Alkaline Phosphatase 64 U/L (46-116) Creatine Kinase 225 U/L (26-192) H Troponin I Quantitative < 0.017 ng/mL (0-0.055) CR-Ycx-T-Type Natriuretic Peptide 97 pg/mL (0-124) Total Protein 7.2 g/dL (6.4-8.2) Albumin 3.6 g/dL (3.4-5.0) Lipase 119 U/L (73-393) Thyroid Stimulating Hormone (TSH) 1.839 uIU/mL (0.358-3.740) Treponema pallidum Antibody Nonreactive (Nonreactive) Prothrombin Time 11.7 SEC (9.4-11.4) H Prothrombin Time INR 1.2 (0.9-1.1) H PTT 25 SEC (23-33) D-Dimer (Jackie) 0.41 mg/L (0.00-0.50) Hemoglobin A1c 5.2 % (4.8-5.6) Iron Level 72 ug/dL (50-170) Total Iron Binding Capacity 259 ug/dL (250-450) Iron Saturation 28 % (15-34) Triglycerides Level 63 mg/dL (0-150) Cholesterol Level 207 mg/dL (0-200) H LDL Cholesterol, Calculated 137 mg/dL (0-100) H VLDL Cholesterol, Calculated 12 mg/dL (0-40) Non-HDL Cholesterol Calculated 149 mg/dL (0-129) H HDL Cholesterol 58 mg/dL (40-60) Cholesterol/HDL Ratio 3.0 25-Hydroxy Vitamin D Total 57.1 ng/mL (30-100) Thyroxine (T4) 7.2 ug/dL (4.5-12.0) Total Triiodothyronine (TT3) 88 ng/dL (71-180) Current Medications: Meds: Current Medications Lactated Ringer's 1,000 ml @ 1,000 mls/hr Q1H IV Last administered on 02/21/19 02:06; Start 02/20/19 at 23:00; Stop 02/20/19 at 23:59; Status DC Cephalexin HCl (Keflex) 500 mg 1X ONCE PO Last administered on 02/21/19at 02:07; Start 02/21/19 at 00:30; Stop 02/21/19 at 00:31; Status DC Acetaminophen (Tylenol) 650 mg PRN Q6HRS PRN PO PAIN / TEMP; Start 02/21/19 at 06:00 Multi-Ingredient Ointment (Analgesic [place]) 1 will PRN QID PRN TP MUSCLE PAIN; Start 02/21/19 at 06:00 Al Hydroxide/Mg Hydroxide (Mylanta Plus Xs) 15 ml PRN AFTMEALHC PRN PO DYSPEPSIA; Start 02/21/19 at 06:00 Magnesium Hydroxide (Milk Of Magnesia) 2,400 mg PRN QHS PRN PO CONSTIPATION; Start 02/21/19 at 06:00 Alprazolam (Xanax) 0.5 mg PRN Q6HRS PRN PO ANXIETY / AGITATION Last administered on 02/21/19at 19:44; Start 02/21/19 at 06:15 Fluvoxamine Maleate (Luvox) 50 mg DAILY07 PO Last administered on 02/21/19at 09:28; Start 02/21/19 at 07:00; Stop 02/21/19 at 09:32; Status DC Fluvoxamine Maleate (Luvox) 100 mg QHS PO Last administered on 02/21/19at 19:44; Start 02/21/19 at 21:00 Mirtazapine (Remeron) 15 mg QHS PO Last administered on 02/21/19 19:43; Start 02/21/19 at 21:00 Quetiapine Fumarate (SEROquel) 37.5 mg TID@0700,1700,2100 PO Last administered on 02/21/19 09:27; Start 02/21/19 at 07:00; Stop 02/21/19 at 09:32; Status DC Gabapentin (Neurontin) 100 mg DAILY PO Last administered on 02/21/19 09:27; Start 02/21/19 at 09:00 Gabapentin (Neurontin) 200 mg BID@1300,2100 PO Last administered on 02/21/19 19:44; Start 02/21/19 at 13:00 Potassium Chloride (Klor-Con) 20 meq DAILY07 PO Last administered on 02/21/19 09:27; Start 02/21/19 at 07:00; Stop 02/21/19 at 09:32; Status DC Tamsulosin HCl (Flomax) 0.4 mg QHS PO Last administered on 02/21/19 19:44; Start 02/21/19 at 21:00 Metoclopramide HCl (Reglan) 5 mg TIDAC PO Last administered on 02/21/19 17:30; Start 02/21/19 at 07:30 Pantoprazole Sodium (Protonix) 40 mg DAILYAC PO Last administered on 02/21/19 09:27; Start 02/21/19 at 07:30 Sucralfate (Carafate) 1 gm BID@0700,1700 PO Last administered on 02/21/19 09:27; Start 02/21/19 at 07:00; Stop 02/21/19 at 09:32; Status DC Fluvoxamine Maleate (Luvox) 50 mg DAILY PO ; Start 02/22/19 at 09:00 Potassium Chloride (Klor-Con) 20 meq DAILY PO ; Start 02/22/19 at 09:00 Quetiapine Fumarate (SEROquel) 37.5 mg TID PO Last administered on 02/21/19 19:44; Start 02/21/19 at 14:00 Sucralfate (Carafate) 1 gm BIDWMEALS PO Last administered on 02/21/19 17:30; Start 02/21/19 at 17:00 Polyethylene Glycol (miraLAX) 17 gm PRN DAILY PRN PO CONSTIPATION; Start 02/21/19 at 10:15; Stop 02/21/19 at 10:15; Status DC Polyethylene Glycol (miraLAX) 17 gm PRN DAILY PRN PO CONSTIPATION Last administered on 02/21/19at 10:13; Start 02/21/19 at 10:05 Active Scripts Active Reported Fluvoxamine Maleate 100 Mg Tablet 100 Mg PO QHS Flomax (Tamsulosin Hcl) 0.4 Mg Cap.er.24h 0.4 Mg PO QHS Maalox Advanced Suspension (Mag Hydrox/Aluminum Hyd/Simeth) 355 Ml Oral.susp 15 Ml PO PRN AFTMEALHC PRN Fluvoxamine Maleate 100 Mg Tablet 50 Mg PO DAILY07 Analgesic [place] (Methyl Salicylate/Menthol) 28 Gm Oint...g. 1 Will TP PRN Q6HRS PRN Milk Of Magnesia (Magnesium Hydroxide) 400 Mg/5 Ml Oral.susp 400 Mg PO PRN QHS P RN Acetaminophen 500 Mg Tablet 650 Mg PO PRN Q6HRS PRN Gabapentin (Gabapentin) 100 Mg Capsule 200 Mg PO [id number] Gabapentin (Gabapentin) 100 Mg Capsule 100 Mg PO DAILY Reglan (Metoclopramide Hcl) 10 Mg Tablet 5 Mg PO TIDAC take with meals at 7am, 1pm, 5pm Pantoprazole Sodium 40 Mg Tablet.dr 40 Mg PO DAILY07 Seroquel (Quetiapine Fumarate) 25 Mg Tablet 37.5 Mg PO TID@0700,1700,2100 Miralax (Polyethylene Glycol 3350) 17 Gm Powd.pack 17 Gm PO DAILY07 Klor-Con M20 (Potassium Chloride) 20 Meq Tab.er.prt 20 Meq PO DAILY07 Sucralfate 1 Gm Tablet 1 Gm PO BID@0700,1700 Mirtazapine 15 Mg Tablet 15 Mg PO QHS Reglan (Metoclopramide Hcl) 10 Mg Tablet 5 Mg PO HS Alprazolam 0.5 Mg Tablet 0.5 Mg PO PRN Q6HRS PRN I have reviewed the current psychotropics carefully including drug interactions. Risk benefit ratio favors no change other than as noted in my dictated progress note. Diagnosis: Problems: (1) Anxiety disorder (2) Impulse control disorder (3) Major depressive disorder, recurrent episode (4) Panic disorder with agoraphobia and severe panic attacks (5) Obsessive compulsive disorder MELISSA BASHIR MD Feb 21, 2019 22:55
--- NOTE | 2019-02-22 00:21 | NUR ---
Pt sitting in the day room interacting with peer at shift change. Pt anxious at times, PRN Xanax administered at 1945. Pt cooperative with assessment and compliant with medications administered whole. Pt did become obsessive about her belongings jut before midnight tonight but was successfully re-directed by staff.
[2019-02-22 06:09] VITALS: BP 105/68
[2019-02-22] MEDS: SUCRALFATE 1 GM TABLET. PO SCH ×2 (08:19→17:18)
[2019-02-22] MEDS: PANTOPRAZOLE 40 MG TABLET. PO SCH (08:19)
[2019-02-22] MEDS: METOCLOPRAMIDE 5 MG TABLET PO SCH ×3 (08:19→17:18)
[2019-02-22] MEDS: QUEtiapine 25 MG TABLET. PO SCH ×3 (08:19→19:33)
[2019-02-22] MEDS: POTASSIUM CHLORIDE 20 MEQ TABLET.ER. PO SCH (08:23)
[2019-02-22] MEDS: GABAPENTIN 100 MG CAPSULE. PO SCH ×3 (08:23→20:15)
[2019-02-22] MEDS: ALPRAZolam 0.5 MG TABLET PO PRN ×3 (08:24→21:17)
[2019-02-22] MEDS: POLYETHYLENE GLYCOL 3350 17 GM PACKET. PO PRN (08:43)
[2019-02-22] MEDS ORDERED: METOCLOPRAMIDE 5 MG TABLET ONE ×3 (09:00)
--- NOTE | 2019-02-22 11:46 | NUR ---
Pt withdrawn to self this morning. Compliant with medications. Anxious, requested PRN Xanax with morning medications.
[2019-02-22] MEDS: ACETAMINOPHEN 325 MG TABLET PO PRN (13:23)
--- NOTE | 2019-02-22 15:25 | NUR ---
Pt extremely anxious and is visibly shaking. PRN Xanax administered.
[2019-02-22 16:11] VITALS: BP 119/70
--- NOTE | 2019-02-22 16:16 | NUR ---
SW has completed pt psychosocial assessment; however, the intervention piece has a glitch to which not all of the information can be transferred. Pt information will entered once IT is able to fix the glitch.
[2019-02-22] MEDS: MIRTAZAPINE 15 MG TABLET PO SCH (19:32)
[2019-02-22] MEDS: TAMSULOSIN 0.4 MG CAP.ER.24H. PO SCH (19:32)
--- NOTE | 2019-02-22 22:37 | PDOC ---
Exam Note: Edwin Note: Please also refer to the separate dictated note~for this date of service dictated separately.~Patient seen individually. Discussed the patient with Nursing staff reviewed the chart.~Reviewed interim history and current functioning. Reviewed vital signs,~Labs/ Radiology~and current medications noted below. Continue current treatment with the changes noted in the dictated addendum note Assessment: Vital Signs: Vital Signs Date Time Temp Pulse Resp B/P (MAP) Pulse Ox O2 Delivery O2 Flow Rate FiO2 02/22/19 17:34 120 02/22/19 16:11 98.4 19 119/70 (86) 94 Room Air I&O Intake and Output 02/22/19 07:00 Intake Total 720 ml Balance 720 ml Intake Oral 720 ml Current Medications: Meds: Current Medications Lactated Ringer's 1,000 ml @ 1,000 mls/hr Q1H IV Last administered on 02/21at 02:06; Start 02/20/19 at 23:00; Stop 02/20/19 at 23:59; Status DC Cephalexin HCl (Keflex) 500 mg 1X ONCE PO Last administered on 02/21/19at 02:07; Start 02/21/19 at 00:30; Stop 02/21/19 at 00:31; Status DC Acetaminophen (Tylenol) 650 mg PRN Q6HRS PRN PO PAIN / TEMP Last administered on 02/22/19at 13:23; Start 02/21/19 at 06:00 Multi-Ingredient Ointment (Analgesic [place]) 1 will PRN QID PRN TP MUSCLE PAIN; Start 02/21/19 at 06:00 Al Hydroxide/Mg Hydroxide (Mylanta Plus Xs) 15 ml PRN AFTMEALHC PRN PO DYSPEPSIA; Start 02/21/19 at 06:00 Magnesium Hydroxide (Milk Of Magnesia) 2,400 mg PRN QHS PRN PO CONSTIPATION; Start 02/21/19 at 06:00 Alprazolam (Xanax) 0.5 mg PRN Q6HRS PRN PO ANXIETY / AGITATION Last administered on 02/22/19at 21:17; Start 02/21/19 at 06:15 Fluvoxamine Maleate (Luvox) 50 mg DAILY07 PO Last administered on 02/21/19at 09:28; Start 02/21/19 at 07:00; Stop 02/21/19 at 09:32; Status DC Fluvoxamine Maleate (Luvox) 100 mg QHS PO Last administered on 02/22/19 19:32; Start 02/21/19 at 21:00 Mirtazapine (Remeron) 15 mg QHS PO Last administered on 02/22/19 19:32; Start 02/21/19 at 21:00 Quetiapine Fumarate (SEROquel) 37.5 mg TID@0700,1700,2100 PO Last administered on 02/21/19 09:27; Start 02/21/19 at 07:00; Stop 02/21/19 at 09:32; Status DC Gabapentin (Neurontin) 100 mg DAILY PO Last administered on 02/22/19 08:23; Start 02/21/19 at 09:00 Gabapentin (Neurontin) 200 mg BID@1300,2100 PO Last administered on 02/22/19 20:15; Start 02/21/19 at 13:00 Potassium Chloride (Klor-Con) 20 meq DAILY07 PO Last administered on 02/21/19 09:27; Start 02/21/19 at 07:00; Stop 02/21/19 at 09:32; Status DC Tamsulosin HCl (Flomax) 0.4 mg QHS PO Last administered on 02/22/19 19:32; Start 02/21/19 at 21:00 Metoclopramide HCl (Reglan) 5 mg TIDAC PO Last administered on 02/22/19 17:18; Start 02/21/19 at 07:30 Pantoprazole Sodium (Protonix) 40 mg DAILYAC PO Last administered on 02/22/19 08:19; Start 02/21/19 at 07:30 Sucralfate (Carafate) 1 gm BID@0700,1700 PO Last administered on 02/21/19 09:27; Start 02/21/19 at 07:00; Stop 02/21/19 at 09:32; Status DC Fluvoxamine Maleate (Luvox) 50 mg DAILY PO Last administered on 02/22/19 08:23; Start 02/22/19 at 09:00 Potassium Chloride (Klor-Con) 20 meq DAILY PO Last administered on 02/22/19 08:23; Start 02/22/19 at 09:00 Quetiapine Fumarate (SEROquel) 37.5 mg TID PO Last administered on 02/22/19at 19:33; Start 02/21/19 at 14:00; Stop 02/22/19 at 21:01; Status DC Sucralfate (Carafate) 1 gm BIDWMEALS PO Last administered on 02/22/19at 17:18; Start 02/21/19 at 17:00 Polyethylene Glycol (miraLAX) 17 gm PRN DAILY PRN PO CONSTIPATION; Start 02/21/19 at 10:15; Stop 02/21/19 at 10:15; Status DC Polyethylene Glycol (miraLAX) 17 gm PRN DAILY PRN PO CONSTIPATION Last administered on 02/22/19at 08:43; Start 02/21/19 at 10:05 Lurasidone HCl (Latuda) 20 mg DAILYWBKFT PO ; Start 02/23/19 at 08:00; Stop 02/25/19 at 09:01 Lurasidone HCl (Latuda) 40 mg DAILYWBKFT PO ; Start 02/26/19 at 08:00; Stop 02/28/19 at 09:01 Lurasidone HCl (Latuda) 60 mg DAILYWBKFT PO ; Start 03/01/19 at 08:00 Quetiapine Fumarate (SEROquel) 37.5 mg BID PO ; Start 02/23/19 at 09:00; Stop 03/01/19 at 21:01 Quetiapine Fumarate (SEROquel) 37.5 mg DAILY PO ; Start 03/02/19 at 09:00; Stop 03/09/19 at 09:01 Active Scripts Active Reported Fluvoxamine Maleate 100 Mg Tablet 100 Mg PO QHS Flomax (Tamsulosin Hcl) 0.4 Mg Cap.er.24h 0.4 Mg PO QHS Maalox Advanced Suspension (Mag Hydrox/Aluminum Hyd/Simeth) 355 Ml Oral.susp 15 Ml PO PRN AFTMEALHC PRN Fluvoxamine Maleate 100 Mg Tablet 50 Mg PO DAILY07 Analgesic [place] (Methyl Salicylate/Menthol) 28 Gm Oint...g. 1 Will TP PRN Q6HRS PRN Milk Of Magnesia (Magnesium Hydroxide) 400 Mg/5 Ml Oral.susp 400 Mg PO PRN QHS PRN Acetaminophen 500 Mg Tablet 650 Mg PO PRN Q6HRS PRN Gabapentin (Gabapentin) 100 Mg Capsule 200 Mg PO [id number] Gabapentin (Gabapentin) 100 Mg Capsule 100 Mg PO DAILY Reglan (Metoclopramide Hcl) 10 Mg Tablet 5 Mg PO TIDAC take with meals at 7am, 1pm, 5pm Pantoprazole Sodium 40 Mg Tablet.dr 40 Mg PO DAILY07 Seroquel (Quetiapine Fumarate) 25 Mg Tablet 37.5 Mg PO TID@0700,1700,2100 Miralax (Polyethylene Glycol 3350) 17 Gm Powd.pack 17 Gm PO DAILY07 Klor-Con M20 (Potassium Chloride) 20 Meq Tab.er.prt 20 Meq PO DAILY07 Sucralfate 1 Gm Tablet 1 Gm PO BID@0700,1700 Mirtazapine 15 Mg Tablet 15 Mg PO QHS Reglan (Metoclopramide Hcl) 10 Mg Tablet 5 Mg PO HS Alprazolam 0.5 Mg Tablet 0.5 Mg PO PRN Q6HRS PRN I have reviewed the current psychotropics carefully including drug interactions. Risk benefit ratio favors no change other than as noted in my dictated progress note. Diagnosis: Problems: (1) Anxiety disorder (2) Impulse control disorder (3) Major depressive disorder, recurrent episode (4) Panic disorder with agoraphobia and severe panic attacks (5) Obsessive compulsive disorder MELISSA BASHIR MD Feb 22, 2019 22:37
--- NOTE | 2019-02-22 23:18 | NUR ---
Pt. was anxious this evening in regards to where her clothing was at. LENDING ADVISOR explained to her that they were in the dryer and when they were done she would bring them to her. Pt. was ok with that. Pt. was compliant on taking her evening/HS medications.
[2019-02-23 06:15] VITALS: BP 112/74
[2019-02-23] MEDS: POTASSIUM CHLORIDE 20 MEQ TABLET.ER. PO SCH (08:15)
[2019-02-23] MEDS: PANTOPRAZOLE 40 MG TABLET. PO SCH (08:15)
[2019-02-23] MEDS: SUCRALFATE 1 GM TABLET. PO SCH ×2 (08:15→15:13)
[2019-02-23] MEDS: QUEtiapine 25 MG TABLET. PO SCH ×2 (08:16→19:16)
[2019-02-23] MEDS: METOCLOPRAMIDE 5 MG TABLET PO SCH ×3 (08:16→15:13)
[2019-02-23] MEDS: GABAPENTIN 100 MG CAPSULE. PO SCH ×3 (08:16→19:16)
[2019-02-23] MEDS: LURASIDONE 40 MG TABLET. PO SCH (08:19)
[2019-02-23] MEDS: ALPRAZolam 0.5 MG TABLET PO PRN ×2 (08:36→21:56)
[2019-02-23] MEDS ORDERED: METOCLOPRAMIDE 5 MG TABLET ONE ×3 (09:00)
--- NOTE | 2019-02-23 09:29 | RAD ---
KUB History: Abdominal pain Comparison: February 13, 2019 Findings: Single portable AP supine view of the abdomen is submitted. There is scattered gas in the nondilated colon, no gas dilated small bowel identified. Exam is insufficient for the evaluation for free air. There is again right hip arthroplasty. Impression: 1. There is an overall nonobstructive bowel gas pattern. Electronically signed by: Constantino Capps MD (02/23/2019 9:26 AM) [facility]
--- NOTE | 2019-02-23 13:32 | NUR ---
Nursing Note Pt anxious on and off complains of abdominal pain, xanax given.
[2019-02-23 15:53] VITALS: BP 105/71
[2019-02-23] MEDS: MIRTAZAPINE 15 MG TABLET PO SCH (19:15)
[2019-02-23] MEDS: TAMSULOSIN 0.4 MG CAP.ER.24H. PO SCH (19:15)
--- NOTE | 2019-02-23 22:47 | PDOC ---
Exam Note: Edwin Note: Please also refer to the separate dictated note~for this date of service dictated separately.~Patient seen individually. Discussed the patient with Nursing staff reviewed the chart.~Reviewed interim history and current functioning. Reviewed vital signs,~Labs/ Radiology~and current medications noted below. Continue current treatment with the changes noted in the dictated addendum note Assessment: Vital Signs: Vital Signs Date Time Temp Pulse Resp B/P (MAP) Pulse Ox O2 Delivery O2 Flow Rate FiO2 02/23/19 15:53 97.1 77 19 105/71 (82) 97 Room Air I&O Intake and Output 02/23/19 07:00 Intake Total 620 ml Balance 620 ml Intake Oral 620 ml Current Medications: Meds: Current Medications Lactated Ringer's 1,000 ml @ 1,000 mls/hr Q1H IV Last administered on 02/21/19at 02:06; Start 02/20/19 at 23:00; Stop 02/20/19 at 23:59; Status DC Cephalexin HCl (Keflex) 500 mg 1X ONCE PO Last administered on 02/21/19at 02:07 ; Start 02/21/19 at 00:30; Stop 02/21/19 at 00:31; Status DC Acetaminophen (Tylenol) 650 mg PRN Q6HRS PRN PO PAIN / TEMP Last administered on 02/22/19at 13:23; Start 02/21/19 at 06:00 Multi-Ingredient Ointment (Analgesic [place]) 1 will PRN QID PRN TP MUSCLE PAIN; Start 02/21/19 at 06:00 Al Hydroxide/Mg Hydroxide (Mylanta Plus Xs) 15 ml PRN AFTMEALHC PRN PO DYSPEPSIA; Start 02/21/19 at 06:00 Magnesium Hydroxide (Milk Of Magnesia) 2,400 mg PRN QHS PRN PO CONSTIPATION; Start 02/21/19 at 06:00 Alprazolam (Xanax) 0.5 mg PRN Q6HRS PRN PO ANXIETY / AGITATION Last administered on 02/23/19at 21:56; Start 02/21/19 at 06:15 Fluvoxamine Maleate (Luvox) 50 mg DAILY07 PO Last administered on 02/21/19at 09:28; Start 02/21/19 at 07:00; Stop 02/21/19 at 09:32; Status DC Fluvoxamine Maleate (Luvox) 100 mg QHS PO Last administered on 02/23/19 19:15; Start 02/21/19 at 21:00 Mirtazapine (Remeron) 15 mg QHS PO Last administered on 02/23/19 19:15; Start 02/21/19 at 21:00 Quetiapine Fumarate (SEROquel) 37.5 mg TID@0700,1700,2100 PO Last administered on 02/21/19 09:27; Start 02/21/19 at 07:00; Stop 02/21/19 at 09:32; Status DC Gabapentin (Neurontin) 100 mg DAILY PO Last administered on 02/23/19 08:16; Start 02/21/19 at 09:00 Gabapentin (Neurontin) 200 mg BID@1300,2100 PO Last administered on 02/23/19 19:16; Start 02/21/19 at 13:00 Potassium Chloride (Klor-Con) 20 meq DAILY07 PO Last administered on 02/21/19 09:27; Start 02/21/19 at 07:00; Stop 02/21/19 at 09:32; Status DC Tamsulosin HCl (Flomax) 0.4 mg QHS PO Last administered on 02/23/19 19:15; Start 02/21/19 at 21:00 Metoclopramide HCl (Reglan) 5 mg TIDAC PO Last administered on 02/23/19 15:13; Start 02/21/19 at 07:30 Pantoprazole Sodium (Protonix) 40 mg DAILYAC PO Last administered on 02/23/19 08:15; Start 02/21/19 at 07:30 Sucralfate (Carafate) 1 gm BID@0700,1700 PO Last administered on 02/21/19 09:27; Start 02/21/19 at 07:00; Stop 02/21/19 at 09:32; Status DC Fluvoxamine Maleate (Luvox) 50 mg DAILY PO Last administered on 02/23/19 08:16; Start 02/22/19 at 09:00 Potassium Chloride (Klor-Con) 20 meq DAILY PO Last administered on 02/23/19 08:15; Start 02/22/19 at 09:00 Quetiapine Fumarate (SEROquel) 37.5 mg TID PO Last administered on 02/22/19at 19:33; Start 02/21/19 at 14:00; Stop 02/22/19 at 21:01; Status DC Sucralfate (Carafate) 1 gm BIDWMEALS PO Last administered on 02/23/19at 15:13; Start 02/21/19 at 17:00 Polyethylene Glycol (miraLAX) 17 gm PRN DAILY PRN PO CONSTIPATION; Start 02/21/19 at 10:15; Stop 02/21/19 at 10:15; Status DC Polyethylene Glycol (miraLAX) 17 gm PRN DAILY PRN PO CONSTIPATION Last administered on 02/22/19at 08:43; Start 02/21/19 at 10:05 Lurasidone HCl (Latuda) 20 mg DAILYWBKFT PO Last administered on 02/23/19at 08:19; Start 02/23/19 at 08:00; Stop 02/25/19 at 09:01 Lurasidone HCl (Latuda) 40 mg DAILYWBKFT PO ; Start 02/26/19 at 08:00; Stop 02/28/19 at 09:01 Lurasidone HCl (Latuda) 60 mg DAILYWBKFT PO ; Start 03/01/19 at 08:00 Quetiapine Fumarate (SEROquel) 37.5 mg BID PO Last administered on 02/23/19at 19:16; Start 02/23/19 at 09:00; Stop 03/01/19 at 21:01 Quetiapine Fumarate (SEROquel) 37.5 mg DAILY PO ; Start 03/02/19 at 09:00; Stop 03/09/19 at 09:01 Metoclopramide HCl (Reglan) 5 mg STK-MED ONCE .ROUTE ; Start 02/21/19 at 09:00; Stop 02/23/19 at 18:20; Status DC Metoclopramide HCl (Reglan) 5 mg STK-MED ONCE .ROUTE ; Start 02/21/19 at 09:00; Stop 02/23/19 at 18:20; Status DC Metoclopramide HCl (Reglan) 5 mg STK-MED ONCE .ROUTE ; Start 02/21/19 at 09:00; Stop 02/23/19 at 18:20; Status DC Quetiapine Fumarate (SEROquel) 37.5 mg STK-MED ONCE .ROUTE ; Start 02/21/19 at 09:00; Stop 02/23/19 at 18:20; Status DC Sucralfate (Carafate) 1 gm STK-MED ONCE PO ; Start 02/21/19 at 09:00; Stop 02/23/19 at 18:20; Status DC Metoclopramide HCl (Reglan) 5 mg STK-MED ONCE .ROUTE ; Start 02/22/19 at 09:00; Stop 02/23/19 at 18:20; Status DC Metoclopramide HCl (Reglan) 5 mg STK-MED ONCE .ROUTE ; Start 02/22/19 at 09:00; Stop 02/23/19 at 18:20; Status DC Metoclopramide HCl (Reglan) 5 mg STK-MED ONCE .ROUTE ; Start 02/22/19 at 09:00; Stop 02/23/19 at 18:20; Status DC Metoclopramide HCl (Reglan) 5 mg STK-MED ONCE .ROUTE ; Start 02/23/19 at 09:00; Stop 02/23/19 at 18:20; Status DC Metoclopramide HCl (Reglan) 5 mg STK-MED ONCE .ROUTE ; Start 02/23/19 at 09:00; Stop 02/23/19 at 18:20; Status DC Metoclopramide HCl (Reglan) 5 mg STK-MED ONCE .ROUTE ; Start 02/23/19 at 09:00; Stop 02/23/19 at 18:20; Status DC Active Scripts Active Reported Fluvoxamine Maleate 100 Mg Tablet 100 Mg PO QHS Flomax (Tamsulosin Hcl) 0.4 Mg Cap.er.24h 0.4 Mg PO QHS Maalox Advanced Suspension (Mag Hydrox/Aluminum Hyd/Simeth) 355 Ml Oral.susp 15 Ml PO PRN AFTMEALHC PRN Fluvoxamine Maleate 100 Mg Tablet 50 Mg PO DAILY07 Analgesic [place] (Methyl Salicylate/Menthol) 28 Gm Oint...g. 1 Will TP PRN Q6HRS PRN Milk Of Magnesia (Magnesium Hydroxide) 400 Mg/5 Ml Oral.susp 400 Mg PO PRN QHS PRN Acetaminophen 500 Mg Tablet 650 Mg PO PRN Q6HRS PRN Gabapentin (Gabapentin) 100 Mg Capsule 200 Mg PO [id number] Gabapentin (Gabapentin) 100 Mg Capsule 100 Mg PO DAILY Reglan (Metoclopramide Hcl) 10 Mg Tablet 5 Mg PO TIDAC take with meals at 7am, 1pm, 5pm Pantoprazole Sodium 40 Mg Tablet.dr 40 Mg PO DAILY07 Seroquel (Quetiapine Fumarate) 25 Mg Tablet 37.5 Mg PO TID@0700,1700,2100 Miralax (Polyethylene Glycol 3350) 17 Gm Powd.pack 17 Gm PO DAILY07 Klor-Con M20 (Potassium Chloride) 20 Meq Tab.er.prt 20 Meq PO DAILY07 Sucralfate 1 Gm Tablet 1 Gm PO BID@0700,1700 Mirtazapine 15 Mg Tablet 15 Mg PO QHS Reglan (Metoclopramide Hcl) 10 Mg Tablet 5 Mg PO HS Alprazolam 0.5 Mg Tablet 0.5 Mg PO PRN Q6HRS PRN I have reviewed the current psychotropics carefully including drug interactions. Risk benefit ratio favors no change other than as noted in my dictated progress note. Diagnosis: Problems: (1) Anxiety disorder (2) Impulse control disorder (3) Major depressive disorder, recurrent episode (4) Panic disorder with agoraphobia and severe panic attacks (5) Obsessive compulsive disorder MELISSA BASHIR MD Feb 23, 2019 22:47
--- NOTE | 2019-02-23 23:39 | NUR ---
Pt continues to be anxious and complains of intermittent stomach pain. Compliant with HS medications. PRN Xanax administered at HS.
[2019-02-24 05:50] VITALS: BP 112/71
[2019-02-24] MEDS: METOCLOPRAMIDE 5 MG TABLET PO SCH ×3 (08:08→16:19)
[2019-02-24] MEDS: POTASSIUM CHLORIDE 20 MEQ TABLET.ER. PO SCH (08:09)
[2019-02-24] MEDS: QUEtiapine 25 MG TABLET. PO SCH ×2 (08:09→19:18)
[2019-02-24] MEDS: SUCRALFATE 1 GM TABLET. PO SCH ×2 (08:10→16:20)
[2019-02-24] MEDS: PANTOPRAZOLE 40 MG TABLET. PO SCH (08:10)
[2019-02-24] MEDS: LURASIDONE 40 MG TABLET. PO SCH (08:11)
[2019-02-24] MEDS: ALPRAZolam 0.5 MG TABLET PO PRN ×3 (08:12→20:57)
[2019-02-24] MEDS: GABAPENTIN 100 MG CAPSULE. PO SCH ×3 (08:12→19:19)
--- NOTE | 2019-02-24 10:26 | NUR ---
Pt was assessed for the shift in the dining room for breakfast. Pt is compliant with medications, however is very anxious. PRN medications administered, see eMAR. Pt is appropriate with peers. Will CTM.
--- NOTE | 2019-02-24 13:15 | NUR ---
ACTIVITY THERAPY ASSESSMENT Completed based on observation and interview. Pt. was in her bed with her eyes closed but agreeable to speak with LARD REFINER. She remembers being here before and explained she "got stressed out" which is causing her to have stomach issues. When asked if Pt. needed anything to work on in her room, she asked for a journal. Pt. talked about watching TV when she gets stressed, mostly [employer] and [employer] [place]. She also enjoyed "Funny Girl," the movie. Pt. talked about having trouble sleeping at home and she needs to have her head elevated higher than what she can so she tends to sleep on the sofa. While on the unit, Pt. stays in her room most of the time, lacking socialization. She has a flat affect but is pleasant. Initial goal aimed to increase engagement and socialization: Pt. will participate in at least five Activity Therapy groups per week.
[2019-02-24 16:27] VITALS: BP 110/62
[2019-02-24] MEDS: TAMSULOSIN 0.4 MG CAP.ER.24H. PO SCH (19:17)
[2019-02-24] MEDS: MIRTAZAPINE 15 MG TABLET PO SCH (19:18)
--- NOTE | 2019-02-24 23:01 | NUR ---
Pt was sleeping in bed this evening. HS medications brought into her room. Compliant and drowsy.
--- NOTE | 2019-02-24 23:07 | PDOC ---
Exam Note: Edwin Note: Please also refer to the separate dictated note~for this date of service dictated separately.~Patient seen individually. Discussed the patient with Nursing staff reviewed the chart.~Reviewed interim history and current functioning. Reviewed vital signs,~Labs/ Radiology~and current medications noted below. Continue current treatment with the changes noted in the dictated addendum note Assessment: Vital Signs: Vital Signs Date Time Temp Pulse Resp B/P (MAP) Pulse Ox O2 Delivery O2 Flow Rate FiO2 02/24/19 16:27 98.6 89 18 110/62 (78) 98 02/23/19 15:53 Room Air I&O Intake and Output 02/24/19 06:59 Intake Total 1340 ml Balance 1340 ml Intake Oral 1340 ml Current Medications: Meds: Current Medications Lactated Ringer's 1,000 ml @ 1,000 mls/hr Q1H IV Last administered on 02:06; Start 02/20/19 at 23:00; Stop 02/20/19 at 23:59; Status DC Cephalexin HCl (Keflex) 500 mg 1X ONCE PO Last administered on 02/21/19at 02:07; Start 02/21/19 at 00:30; Stop 02/21/19 at 00:31; Status DC Acetaminophen (Tylenol) 650 mg PRN Q6HRS PRN PO PAIN / TEMP Last administered on 02/22/19at 13:23; Start 02/21/19 at 06:00 Multi-Ingredient Ointment (Analgesic [place]) 1 will PRN QID PRN TP MUSCLE PAIN; Start 02/21/19 at 06:00 Al Hydroxide/Mg Hydroxide (Mylanta Plus Xs) 15 ml PRN AFTMEALHC PRN PO DYSPEPSIA; Start 02/21/19 at 06:00 Magnesium Hydroxide (Milk Of Magnesia) 2,400 mg PRN QHS PRN PO CONSTIPATION; Start 02/21/19 at 06:00 Alprazolam (Xanax) 0.5 mg PRN Q6HRS PRN PO ANXIETY / AGITATION Last administered on 02/24/19at 20:57; Start 02/21/19 at 06:15 Fluvoxamine Maleate (Luvox) 50 mg DAILY07 PO Last administered on 02/21/19at 09:28; Start 02/21/19 at 07:00; Stop 02/21/19 at 09:32; Status DC Fluvoxamine Maleate (Luvox) 100 mg QHS PO Last administered on 02/24/19 19:17; Start 02/21/19 at 21:00 Mirtazapine (Remeron) 15 mg QHS PO Last administered on 02/24/19 19:18; Start 02/21/19 at 21:00 Quetiapine Fumarate (SEROquel) 37.5 mg TID@0700,1700,2100 PO Last administered on 02/21/19 09:27; Start 02/21/19 at 07:00; Stop 02/21/19 at 09:32; Status DC Gabapentin (Neurontin) 100 mg DAILY PO Last administered on 02/24/19 08:12; Start 02/21/19 at 09:00 Gabapentin (Neurontin) 200 mg BID@1300,2100 PO Last administered on 02/24/19 19:19; Start 02/21/19 at 13:00 Potassium Chloride (Klor-Con) 20 meq DAILY07 PO Last administered on 02/21/19 09:27; Start 02/21/19 at 07:00; Stop 02/21/19 at 09:32; Status DC Tamsulosin HCl (Flomax) 0.4 mg QHS PO Last administered on 02/24/19 19:17; Start 02/21/19 at 21:00 Metoclopramide HCl (Reglan) 5 mg TIDAC PO Last administered on 02/24/19 16:19; Start 02/21/19 at 07:30 Pantoprazole Sodium (Protonix) 40 mg DAILYAC PO Last administered on 02/24/19 08:10; Start 02/21/19 at 07:30 Sucralfate (Carafate) 1 gm BID@0700,1700 PO Last administered on 02/21/19 09:27; Start 02/21/19 at 07:00; Stop 02/21/19 at 09:32; Status DC Fluvoxamine Maleate (Luvox) 50 mg DAILY PO Last administered on 02/24/19 08:10; Start 02/22/19 at 09:00 Potassium Chloride (Klor-Con) 20 meq DAILY PO Last administered on 4/28/19at 08:09; Start 02/22/19 at 09:00 Quetiapine Fumarate (SEROquel) 37.5 mg TID PO Last administered on 02/22/19at 19:33; Start 02/21/19 at 14:00; Stop 02/22/19 at 21:01; Status DC Sucralfate (Carafate) 1 gm BIDWMEALS PO Last administered on 02/24/19at 16:20; Start 02/21/19 at 17:00 Polyethylene Glycol (miraLAX) 17 gm PRN DAILY PRN PO CONSTIPATION; Start 02/21/19 at 10:15; Stop 02/21/19 at 10:15; Status DC Polyethylene Glycol (miraLAX) 17 gm PRN DAILY PRN PO CONSTIPATION Last administered on 02/22/19at 08:43; Start 02/21/19 at 10:05 Lurasidone HCl (Latuda) 20 mg DAILYWBKFT PO Last administered on 02/24/19at 08:11; Start 02/23/19 at 08:00; Stop 02/25/19 at 09:01 Lurasidone HCl (Latuda) 40 mg DAILYWBKFT PO ; Start 02/26/19 at 08:00; Stop 02/28/19 at 09:01 Lurasidone HCl (Latuda) 60 mg DAILYWBKFT PO ; Start 03/01/19 at 08:00 Quetiapine Fumarate (SEROquel) 37.5 mg BID PO Last administered on 02/24/19at 19:18; Start 02/23/19 at 09:00; Stop 03/01/19 at 21:01 Quetiapine Fumarate (SEROquel) 37.5 mg DAILY PO ; Start 03/02/19 at 09:00; Stop 03/09/19 at 09:01 Metoclopramide HCl (Reglan) 5 mg STK-MED ONCE .ROUTE ; Start 02/21/19 at 09:00; Stop 02/23/19 at 18:20; Status DC Metoclopramide HCl (Reglan) 5 mg STK-MED ONCE .ROUTE ; Start 02/21/19 at 09:00; Stop 02/23/19 at 18:20; Status DC Metoclopramide HCl (Reglan) 5 mg STK-MED ONCE .ROUTE ; Start 02/21/19 at 09:00; Stop 02/23/19 at 18:20; Status DC Quetiapine Fumarate (SEROquel) 37.5 mg STK-MED ONCE .ROUTE ; Start 02/21/19 at 09:00; Stop 02/23/19 at 18:20; Status DC Sucralfate (Carafate) 1 gm STK-MED ONCE PO ; Start 02/21/19 at 09:00; Stop 02/23/19 at 18:20; Status DC Metoclopramide HCl (Reglan) 5 mg STK-MED ONCE .ROUTE ; Start 02/22/19 at 09:00; Stop 02/23/19 at 18:20; Status DC Metoclopramide HCl (Reglan) 5 mg STK-MED ONCE .ROUTE ; Start 02/22/19 at 09:00; Stop 02/23/19 at 18:20; Status DC Metoclopramide HCl (Reglan) 5 mg STK-MED ONCE .ROUTE ; Start 02/22/19 at 09:00; Stop 02/23/19 at 18:20; Status DC Metoclopramide HCl (Reglan) 5 mg STK-MED ONCE .ROUTE ; Start 02/23/19 at 09:00; Stop 02/23/19 at 18:20; Status DC Metoclopramide HCl (Reglan) 5 mg STK-MED ONCE .ROUTE ; Start 02/23/19 at 09:00; Stop 02/23/19 at 18:20; Status DC Metoclopramide HCl (Reglan) 5 mg STK-MED ONCE .ROUTE ; Start 02/23/19 at 09:00; Stop 02/23/19 at 18:20; Status DC Active Scripts Active Reported Fluvoxamine Maleate 100 Mg Tablet 100 Mg PO QHS Flomax (Tamsulosin Hcl) 0.4 Mg Cap.er.24h 0.4 Mg PO QHS Maalox Advanced Suspension (Mag Hydrox/Aluminum Hyd/Simeth) 355 Ml Oral.susp 15 Ml PO PRN AFTMEALHC PRN Fluvoxamine Maleate 100 Mg Tablet 50 Mg PO DAILY07 Analgesic [place] (Methyl Salicylate/Menthol) 28 Gm Oint...g. 1 Will TP PRN Q6HRS PRN Milk Of Magnesia (Magnesium Hydroxide) 400 Mg/5 Ml Oral.susp 400 Mg PO PRN QHS PRN Acetaminophen 500 Mg Tablet 650 Mg PO PRN Q6HRS PRN Gabapentin (Gabapentin) 100 Mg Capsule 200 Mg PO [id number] Gabapentin (Gabapentin) 100 Mg Capsule 100 Mg PO DAILY Reglan (Metoclopramide Hcl) 10 Mg Tablet 5 Mg PO TIDAC take with meals at 7am, 1pm, 5pm Pantoprazole Sodium 40 Mg Tablet.dr 40 Mg PO DAILY07 Seroquel (Quetiapine Fumarate) 25 Mg Tablet 37.5 Mg PO TID@0700,1700,2100 Miralax (Polyethylene Glycol 3350) 17 Gm Powd.pack 17 Gm PO DAILY07 Klor-Con M20 (Potassium Chloride) 20 Meq Tab.er.prt 20 Meq PO DAILY07 Sucralfate 1 Gm Tablet 1 Gm PO BID@0700,1700 Mirtazapine 15 Mg Tablet 15 Mg PO QHS Reglan (Metoclopramide Hcl) 10 Mg Tablet 5 Mg PO HS Alprazolam 0.5 Mg Tablet 0.5 Mg PO PRN Q6HRS PRN I have reviewed the current psychotropics carefully including drug interactions. Risk benefit ratio favors no change other than as noted in my dictated progress note. Diagnosis: Problems: (1) Anxiety disorder (2) Impulse control disorder (3) Major depressive disorder, recurrent episode (4) Panic disorder with agoraphobia and severe panic attacks (5) Obsessive compulsive disorder MELISSA BASHIR MD Feb 24, 2019 23:07
[2019-02-25 05:41] VITALS: BP 101/62
[2019-02-25] MEDS: PANTOPRAZOLE 40 MG TABLET. PO SCH (08:41)
[2019-02-25] MEDS: METOCLOPRAMIDE 5 MG TABLET PO SCH ×3 (08:42→17:22)
[2019-02-25] MEDS: SUCRALFATE 1 GM TABLET. PO SCH ×2 (08:42→17:22)
[2019-02-25] MEDS: POTASSIUM CHLORIDE 20 MEQ TABLET.ER. PO SCH (08:43)
[2019-02-25] MEDS: QUEtiapine 25 MG TABLET. PO SCH ×2 (08:43→21:12)
[2019-02-25] MEDS: GABAPENTIN 100 MG CAPSULE. PO SCH ×3 (08:47→21:11)
[2019-02-25] MEDS: POLYETHYLENE GLYCOL 3350 17 GM PACKET. PO PRN (08:47)
[2019-02-25] MEDS: LURASIDONE 40 MG TABLET. PO SCH (08:48)
[2019-02-25 09:18] LABS: BASO % 1 % (0-3); EOS # 0.1 x10^3/uL (0.0-0.7); EOS % 1 % (0-3); HEMATOCRIT 40.4 % (36.0-47.0); HEMOGLOBIN 13.2 g/dL (12.0-15.5); LYMPH # 0.9 x10^3/uL (1.0-4.8); LYMPH % 24 % (24-48); MEAN CORPUSCULAR HEMOGLOBIN 33 pg (25-35); MEAN CORPUSCULAR HGB CONC 33 g/dL (31-37); MEAN CORPUSCULAR VOLUME 101 fL (79-100); MONO # 0.4 x10^3/uL (0.0-1.1); MONO % 12 % (0-9); NEUT # 2.4 x10^3uL (1.8-7.7); NEUT % 62 % (31-73); PLATELET COUNT 242 x10^3/uL (140-400); RED BLOOD COUNT 3.99 x10^6/uL (3.50-5.40); RED CELL DISTRIBUTION WIDTH 13.2 % (11.5-14.5); WHITE BLOOD COUNT 3.8 x10^3/uL (4.0-11.0)
[2019-02-25 09:28] LABS: ALBUMIN 3.8 g/dL (3.4-5.0); GFR 61.4; POTASSIUM 3.8 mmol/L (3.5-5.1)
--- NOTE | 2019-02-25 09:45 | CONS ---
DATE OF CONSULTATION: 02/22/2019 REASON FOR CONSULTATION: Medical management. HISTORY OF PRESENT ILLNESS: The patient is a 73-year-old female patient, who was [facility], she signed herself in with increasing depression, anxiety, poor appetite and apparently her symptoms have been going on for several weeks. She continued to have panic attacks, feeling hopeless, helpless, and worthless, marked symptoms of agoraphobia and failure for outpatient psychiatric intervention. She has screened by tele Psychiatry screener given her failure of outpatient psychiatric intervention, marked symptoms of depression and anxiety and so it was recommended by them that she should be admitted for inpatient psychiatric stabilization. The patient apparently has long history of worsening symptoms of depression and anxiety. She has multiple psychiatric hospitalizations in the past and outpatient psychiatric treatment by Dr. Peterson and another psychologist. She has failed all of these with worsening anxiety and depression. No clear history of bipolar disorder, suicidal or homicidal ideation. She does have some short-term memory deficit and often overuse of Xanax and then she has slurred speech and atoxia, the consequence of this. She has also marked obsessive compulsive disorder and repetitive behavioral rumination. PAST MEDICAL HISTORY: Significant for gastroparesis, long QT interval, history of malignant neoplasm, chronic constipation, history of recurrent urinary tract infection. PAST SURGICAL HISTORY: Significant for right total hip arthroplasty. She has also left breast cancer, status post lumpectomy. FAMILY HISTORY: Unremarkable. SOCIAL HISTORY: She lives [place] other [place]. She has a son and 2 grandchildren. She does not smoke, drink alcohol or recreational drugs. She is retired. ALLERGIES: She has no known drug allergies. MEDICATIONS: She is currently on following medications: She is on Flomax 0.4 mg at bedtime, analgesic balm 1 application topically every 6 hours, Tylenol 650 mg every 6 hours, gabapentin 100 mg once a day, gabapentin 200 mg twice a day, fluvoxamine maleate 50 mg daily, fluvoxamine maleate 100 mg p.o. at bedtime, mirtazapine 50 mg at bedtime, quetiapine fumarate 37.5 mg 3 times a day, alprazolam 0.5 mg every 6 hours, potassium chloride 20 mEq daily and Maalox 15 mL after meals, milk of magnesia 30 mL p.o. daily p.r.n. for constipation. She is on polyethylene glycol 17 grams daily, sucralfate 1 gram twice a day, Protonix 40 mg once a day, metoclopramide 5 mg at bedtime, metoclopramide 5 mg before meals. REVIEW OF SYSTEMS: As per history of present illness. PHYSICAL EXAMINATION: GENERAL: On examining her, the patient looked well and was clearly in no apparent respiratory distress. She was somewhat pale, cachectic, but no jaundice, cyanosis, or thyromegaly. No jugular venous distension. No limb edema. VITAL SIGNS: Her heart rate was 120, blood pressure was 119/70, temperature was 98.4, respiratory rate was 19 and oxygen saturation was 94% on room air. HEAD, EYES, EARS, NOSE and THROAT: Showed normocephalic, atraumatic. NECK: Supple. HEART: Showed normal first and second sounds. No gallop, rub or murmur. CHEST: Clear to auscultation. No crepitation or rhonchi. ABDOMEN: Distended, scaphoid, soft, nontender. NEUROLOGIC: She is awake, alert, responding appropriately. All cranial nerves intact. EXTREMITIES: She moves extremities without difficulty. She ambulates without assistance or assistive devices. LABORATORY DATA: Showed a white cell count of 3400, hemoglobin 12, hematocrit 36, MCV 100, and platelet count of 218,000. Her serum sodium was 142, potassium 3.6, chloride 105, bicarbonate 29, anion gap of 8, BUN 18, creatinine 0.8, estimated GFR was 70 mL per minute. Her glucose was 81, calcium was 9.2, magnesium was 1.9. Total bilirubin, AST, ALT, alkaline phosphatase were normal. Her CK was 225. Total protein was 7.2, albumin 3.6. Her lipase was 119. Her TSH was 1.839. Her total T4 and total T3 are normal. Her 25-hydroxy vitamin D was normal at 57.1. Her serum triglycerides were 63, total cholesterol was 207, LDL was 137, VLDL was 12, and HDL cholesterol was 58 and cholesterol to HDL cholesterol ratio was 3. Her hemoglobin A1c was 5.2%. Total serum iron was 72, TIBC was 259 and iron saturation was 28. Her prothrombin time was 11.7, INR 1.2, APTT was 25 and D-dimer was 0.4. Her urinalysis essentially showed the urine was yellow, hazy with a pH of 6.5, specific gravity of 1.010. The urine was negative for protein, glucose and nitrite. There is a trace of ketones, trace of blood, large amount of leukocyte esterase, 0 rbc's, 5-10 wbc's, and very few bacteria. Her toxic screen was positive for benzodiazepine and her treponema pallidum antibody was nonreactive. Her chest x-ray showed no acute lung infiltrate or pleural effusion or pulmonary edema or lung mass or pneumothorax. The heart size, pulmonary vasculature, mediastinum and both catherine are unremarkable. IMPRESSION: In summary, this is a 73-year-old female patient, who was yet again admitted with worsening symptoms of anxiety and depression. She continued to feel hopeless, worthless and helpless with marked symptoms of agoraphobia and failure of outpatient psychiatric intervention. Medically, she is known to have gastroparesis for which she is on metoclopramide. She has a long QT interval. She does have a history of malignant neoplasm, for which she underwent a left breast lumpectomy, chronic constipation, history of recurrent urinary tract infection. SUMMARY: All in all, the patient seems to be medically stable. She did complain of abdominal pain, mostly in epigastric area. Her serum lipase was normal. I will arrange for her to have a KUB and decide on further management accordingly. Thank you, Dr. Peterson for allowing me to participate in the care of this patient. RAFAEL GORDILLO MD DR: DEBBIE/praful JOB#: [id number] / [id number]
[2019-02-25] MEDS: ALPRAZolam 0.5 MG TABLET PO PRN ×2 (10:33→21:18)
[2019-02-25 10:41] LABS: CALCIUM 9.4 mg/dL (8.5-10.1); CREATININE 0.9 mg/dL (0.6-1.0); TOTAL BILIRUBIN 0.3 mg/dL (0.2-1.0); TOTAL PROTEIN 7.5 g/dL (6.4-8.2)
--- NOTE | 2019-02-25 11:46 | NUR ---
Patient has had a good morning, has been calm, polite, cooperative. Has stayed in her room resting all morning. No signs of agitation noted at this time.
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
[2019-02-25 16:49] VITALS: BP 94/67
[2019-02-25] MEDS: MIRTAZAPINE 15 MG TABLET PO SCH (21:11)
[2019-02-25] MEDS: TAMSULOSIN 0.4 MG CAP.ER.24H. PO SCH (21:11)
--- NOTE | 2019-02-25 21:38 | PN ---
DATE: 02/23/2019 PSYCHIATRIC PROGRESS NOTE This late entry 02/23/2019 covers elements not covered in my initial note. SUBJECTIVE: I met with the patient in the evening. The patient slept 6 hours previous night. The patient remains quite anxious, wanting Xanax p.r.n. REVIEW OF SYSTEMS: No CV, , pulmonary, eye, ENT system symptoms on review. She has vague somatic symptoms. MENTAL STATUS EXAMINATION: Oriented to herself and situation. Speech coherent, low in volume, rapid at times. Abstraction fair, computation impaired, language function intact. No suicidal or homicidal ideation. She continues to have some benzodiazepine withdrawal symptoms at times with tremors. LABORATORY DATA: Reviewed. IMPRESSION: Unchanged from initial note. PLAN: No change from initial note and we may need to increase her Latuda gradually, which was initiated at 20 mg a day. MAN Scooter BASHIR MD DR: CARRILLO/praful JOB#: [id number] / [id number]
--- NOTE | 2019-02-25 22:06 | PN ---
DATE: 02/24/2019 PSYCHIATRIC PROGRESS NOTE This late entry 02/24/2019 covers elements not covered in my initial note. SUBJECTIVE: I met with the patient in the evening. The patient slept 5 hours previous night. The patient remains somewhat anxious, received Xanax x2. She is also obsessive. REVIEW OF SYSTEMS: No CV, , pulmonary, eye, ENT system symptoms on review. She has vague somatic symptoms. MENTAL STATUS EXAM: Oriented to herself and situation. Speech is coherent, abstraction fair, computation somewhat impaired, language function intact, attention span short. Mood and affect remain somewhat depressed, anxious. LABORATORY DATA: Reviewed. IMPRESSION: Unchanged from initial note. PLAN: No change from initial note. MAN Scooter BASHIR MD DR: CARRILLO/praful JOB#: [id number] / [id number]
--- NOTE | 2019-02-25 22:35 | PN ---
DATE: 02/22/2019 PSYCHIATRIC PROGRESS NOTE This late entry 02/22/2019 covers elements not covered in my initial note. SUBJECTIVE: I met with the patient in the evening of 02/22/2019. She slept 6 hours previous night, remains somewhat anxious and complains of nausea and GI symptoms consequent to anxiety. She has also been somewhat tremulous, received Xanax p.r.n. and the tremor seemed to resolve. She may well be having some benzodiazepine withdrawal and has been using more Xanax than she admits to at home. REVIEW OF SYSTEMS: Positive for the anxiety. No CV, , pulmonary, eye system symptoms on review. She does have the GI symptoms noted. MENTAL STATUS EXAM: Oriented to herself and situation. Speech coherent, low in volume, somewhat rapid at times. Abstraction fair, computation impaired, language function intact, attention span short. Mood and affect remain somewhat anxious, labile. LABORATORY DATA: Reviewed. IMPRESSION: Unchanged from initial note. PLAN: Start Latuda 20 mg a day for 2 days, then 40 mg a day, then 3 days later to 60 mg a day and taper the Seroquel with the cross taper down to 37.5 mg b.i.d. for 2 days, then 7 days later once a day and then to be stopped. Continue rest unchanged. MELISSA BASHIR MD DR: CARRILLO/praful JOB#: [id number] / [id number]
--- NOTE | 2019-02-25 22:36 | PDOC ---
Exam Note: Edwin Note: Please also refer to the separate dictated note~for this date of service dictated separately.~Patient seen individually. Discussed the patient with Nursing staff reviewed the chart.~Reviewed interim history and current functioning. Reviewed vital signs,~Labs/ Radiology~and current medications noted below. Continue current treatment with the changes noted in the dictated addendum note Assessment: Vital Signs: Vital Signs Date Time Temp Pulse Resp B/P (MAP) Pulse Ox O2 Delivery O2 Flow Rate FiO2 02/25/19 16:49 97.4 96 18 94/67 (76) 98 02/23/19 15:53 Room Air I&O Intake and Output 02/25/19 07:00 Intake Total 840 ml Balance 840 ml Intake Oral 840 ml Labs: Laboratory Tests Test 02/25/19 09:01 White Blood Count 3.8 x10^3/uL (4.0-11.0) L Red Blood Count 3.99 x10^6/uL (3.50-5.40) Hemoglobin 13.2 g/dL (12.0-15.5) Hematocrit 40.4 % (36.0-47.0) Mean Corpuscular Volume 101 fL (79-100) H Mean Corpuscular Hemoglobin 33 pg (25-35) Mean Corpuscular Hemoglobin Concent 33 g/dL (31-37) Red Cell Distribution Width 13.2 % (11.5-14.5) Platelet Count 242 x10^3/uL (140-400) Neutrophils (%) (Auto) 62 % (31-73) Lymphocytes (%) (Auto) 24 % (24-48) Monocytes (%) (Auto) 12 % (0-9) H Eosinophils (%) (Auto) 1 % (0-3) Basophils (%) (Auto) 1 % (0-3) Neutrophils # (Auto) 2.4 x10^3uL (1.8-7.7) Lymphocytes # (Auto) 0.9 x10^3/uL (1.0-4.8) L Monocytes # (Auto) 0.4 x10^3/uL (0.0-1.1) Eosinophils # (Auto) 0.1 x10^3/uL (0.0-0.7) Basophils # (Auto) 0.0 x10^3/uL (0.0-0.2) Sodium Level 142 mmol/L (136-145) Potassium Level 3.8 mmol/L (3.5-5.1) Chloride Level 103 mmol/L (98-107) Carbon Dioxide Level 29 mmol/L (21-32) Anion Gap 10 (6-14) Blood Urea Nitrogen 17 mg/dL (7-20) Creatinine 0.9 mg/dL (0.6-1.0) Estimated GFR (Cockcroft-Gault) 61.4 BUN/Creatinine Ratio 19 (6-20) Glucose Level 101 mg/dL (70-99) H Calcium Level 9.4 mg/dL (8.5-10.1) Total Bilirubin 0.3 mg/dL (0.2-1.0) Aspartate Amino Transferase (AST) 21 U/L (15-37) Alanine Aminotransferase (ALT) 19 U/L (14-59) Alkaline Phosphatase 70 U/L (46-116) Total Protein 7.5 g/dL (6.4-8.2) Albumin 3.8 g/dL (3.4-5.0) Albumin/Globulin Ratio 1.0 (1.0-1.7) Current Medications: Meds: Current Medications Lactated Ringer's 1,000 ml @ 1,000 mls/hr Q1H IV Last administered on 02/21/19at 02:06; Start 02/20/19 at 23:00; Stop 02/20/19 at 23:59; Status DC Cephalexin HCl (Keflex) 500 mg 1X ONCE PO Last administered on 02/21/19at 02:07; Start 02/21/19 at 00:30; Stop 02/21/19 at 00:31; Status DC Acetaminophen (Tylenol) 650 mg PRN Q6HRS PRN PO PAIN / TEMP Last administered on 02/22/19at 13:23; Start 02/21/19 at 06:00 Multi-Ingredient Ointment (Analgesic Ellis) 1 will PRN QID PRN TP MUSCLE PAIN; Start 02/21/19 at 06:00 Al Hydroxide/Mg Hydroxide (Mylanta Plus Xs) 15 ml PRN AFTMEALHC PRN PO DYSPEPSIA; Start 02/21/19 at 06:00 Magnesium Hydroxide (Milk Of Magnesia) 2,400 mg PRN QHS PRN PO CONSTIPATION; Start 02/21/19 at 06:00 Alprazolam (Xanax) 0.5 mg PRN Q6HRS PRN PO ANXIETY / AGITATION Last ad ministered on 02/25/19 21:18; Start 02/21/19 at 06:15 Fluvoxamine Maleate (Luvox) 50 mg DAILY07 PO Last administered on 02/21/19 09:28; Start 02/21/19 at 07:00; Stop 02/21/19 at 09:32; Status DC Fluvoxamine Maleate (Luvox) 100 mg QHS PO Last administered on 02/25/19 21:10; Start 02/21/19 at 21:00 Mirtazapine (Remeron) 15 mg QHS PO Last administered on 02/25/19 21:11; Start 02/21/19 at 21:00 Quetiapine Fumarate (SEROquel) 37.5 mg TID@0700,1700,2100 PO Last administered on 02/21/19 09:27; Start 02/21/19 at 07:00; Stop 02/21/19 at 09:32; Status DC Gabapentin (Neurontin) 100 mg DAILY PO Last administered on 02/25/19 08:47; Start 02/21/19 at 09:00 Gabapentin (Neurontin) 200 mg BID@1300,2100 PO Last administered on 02/25/19 21:11; Start 02/21/19 at 13:00 Potassium Chloride (Klor-Con) 20 meq DAILY07 PO Last administered on 02/21/19 09:27; Start 02/21/19 at 07:00; Stop 02/21/19 at 09:32; Status DC Tamsulosin HCl (Flomax) 0.4 mg QHS PO Last administered on 02/25/19 21:11; Start 02/21/19 at 21:00 Metoclopramide HCl (Reglan) 5 mg TIDAC PO Last administered on 02/25/19 17:22; Start 02/21/19 at 07:30 Pantoprazole Sodium (Protonix) 40 mg DAILYAC PO Last administered on 02/25/19 08:41; Start 02/21/19 at 07:30 Sucralfate (Carafate) 1 gm BID@0700,1700 PO Last administered on 02/21/19 09:27; Start 02/21/19 at 07:00; Stop 02/21/19 at 09:32; Status DC Fluvoxamine Maleate (Luvox) 50 mg DAILY PO Last administered on 02/25/19 08:43; Start 02/22/19 at 09:00 Potassium Chloride (Klor-Con) 20 meq DAILY PO Last administered on 02/25/19 08:43; Start 02/22/19 at 09:00 Quetiapine Fumarate (SEROquel) 37.5 mg TID PO Last administered on 02/22/19 19:33; Start 02/21/19 at 14:00; Stop 02/22/19 at 21:01; Status DC Sucralfate (Carafate) 1 gm BIDWMEALS PO Last administered on 02/25/19at 17:22; Start 02/21/19 at 17:00 Polyethylene Glycol (miraLAX) 17 gm PRN DAILY PRN PO CONSTIPATION; Start at 10:15; Stop 02/21/19 at 10:15; Status DC Polyethylene Glycol (miraLAX) 17 gm PRN DAILY PRN PO CONSTIPATION Last admi nistered on 02/25/19at 08:47; Start 02/21/19 at 10:05 Lurasidone HCl (Latuda) 20 mg DAILYWBKFT PO Last administered on 02/25/19at 08:48; Start 02/23/19 at 08:00; Stop 02/25/19 at 09:01; Status DC Lurasidone HCl (Latuda) 40 mg DAILYWBKFT PO ; Start 02/26/19 at 08:00; Stop 02/28/19 at 09:01 Lurasidone HCl (Latuda) 60 mg DAILYWBKFT PO ; Start 03/01/19 at 08:00 Quetiapine Fumarate (SEROquel) 37.5 mg BID PO Last administered on 02/25/19at 21:12; Start 02/23/19 at 09:00; Stop 03/01/19 at 21:01 Quetiapine Fumarate (SEROquel) 37.5 mg DAILY PO ; Start 03/02/19 at 09:00; Stop 03/09/19 at 09:01 Metoclopramide HCl (Reglan) 5 mg STK-MED ONCE .ROUTE ; Start 02/21/19 at 09:00; Stop 02/23/19 at 18:20; Status DC Metoclopramide HCl (Reglan) 5 mg STK-MED ONCE .ROUTE ; Start 02/21/19 at 09:00; Stop 02/23/19 at 18:20; Status DC Metoclopramide HCl (Reglan) 5 mg STK-MED ONCE .ROUTE ; Start 02/21/19 at 09:00; Stop 02/23/19 at 18:20; Status DC Quetiapine Fumarate (SEROquel) 37.5 mg STK-MED ONCE .ROUTE ; Start 02/21/19 at 09:00; Stop 02/23/19 at 18:20; Status DC Sucralfate (Carafate) 1 gm STK-MED ONCE PO ; Start 02/21/19 at 09:00; Stop 02/23/19 at 18:20; Status DC Metoclopramide HCl (Reglan) 5 mg STK-MED ONCE .ROUTE ; Start 02/22/19 at 09:00; Stop 02/23/19 at 18:20; Status DC Metoclopramide HCl (Reglan) 5 mg STK-MED ONCE .ROUTE ; Start 02/22/19 at 09:00; Stop 02/23/19 at 18:20; Status DC Metoclopramide HCl (Reglan) 5 mg STK-MED ONCE .ROUTE ; Start 02/22/19 at 09:00; Stop 02/23/19 at 18:20; Status DC Metoclopramide HCl (Reglan) 5 mg STK-MED ONCE .ROUTE ; Start 02/23/19 at 09:00; Stop 02/23/19 at 18:20; Status DC Metoclopramide HCl (Reglan) 5 mg STK-MED ONCE .ROUTE ; Start 02/23/19 at 09:00; Stop 02/23/19 at 18:20; Status DC Metoclopramide HCl (Reglan) 5 mg STK-MED ONCE .ROUTE ; Start 02/23/19 at 09:00; Stop 02/23/19 at 18:20; Status DC Active Scripts Active Reported Fluvoxamine Maleate 100 Mg Tablet 100 Mg PO QHS Flomax (Tamsulosin Hcl) 0.4 Mg Cap.er.24h 0.4 Mg PO QHS Maalox Advanced Suspension (Mag Hydrox/Aluminum Hyd/Simeth) 355 Ml Oral.susp 15 Ml PO PRN AFTMEALHC PRN Fluvoxamine Maleate 100 Mg Tablet 50 Mg PO DAILY07 Analgesic [place] (Methyl Salicylate/Menthol) 28 Gm Oint...g. 1 Will TP PRN Q6HRS PRN Milk Of Magnesia (Magnesium Hydroxide) 400 Mg/5 Ml Oral.susp 400 Mg PO PRN QHS PRN Acetaminophen 500 Mg Tablet 650 Mg PO PRN Q6HRS PRN Gabapentin (Gabapentin) 100 Mg Capsule 200 Mg PO [id number] Gabapentin (Gabapentin) 100 Mg Capsule 100 Mg PO DAILY Reglan (Metoclopramide Hcl) 10 Mg Tablet 5 Mg PO TIDAC take with meals at 7am, 1pm, 5pm Pantoprazole Sodium 40 Mg Tablet.dr 40 Mg PO DAILY07 Seroquel (Quetiapine Fumarate) 25 Mg Tablet 37.5 Mg PO TID@0700,1700,2100 Miralax (Polyethylene Glycol 3350) 17 Gm Powd.pack 17 Gm PO DAILY07 Klor-Con M20 (Potassium Chloride) 20 Meq Tab.er.prt 20 Meq PO DAILY07 Sucralfate 1 Gm Tablet 1 Gm PO BID@0700,1700 Mirtazapine 15 Mg Tablet 15 Mg PO QHS Reglan (Metoclopramide Hcl) 10 Mg Tablet 5 Mg PO HS Alprazolam 0.5 Mg Tablet 0.5 Mg PO PRN Q6HRS PRN I have reviewed the current psychotropics carefully including drug interactions. Risk benefit ratio favors no change other than as noted in my dictated progress note. Diagnosis: Problems: (1) Anxiety disorder (2) Impulse control disorder (3) Major depressive disorder, recurrent episode (4) Panic disorder with agoraphobia and severe panic attacks (5) Obsessive compulsive disorder MELISSA BASHIR MD Feb 25, 2019 22:36
--- NOTE | 2019-02-25 23:00 | NUR ---
Pt. has been out in the day room this evening for a bit. Pt. has been calm and compliant with taking her medications this evening.
[2019-02-26 06:12] VITALS: BP 106/64
[2019-02-26] MEDS: PANTOPRAZOLE 40 MG TABLET. PO SCH (09:47)
[2019-02-26] MEDS: METOCLOPRAMIDE 5 MG TABLET PO SCH ×3 (09:47→16:28)
[2019-02-26] MEDS: SUCRALFATE 1 GM TABLET. PO SCH ×2 (09:48→16:28)
[2019-02-26] MEDS: POTASSIUM CHLORIDE 20 MEQ TABLET.ER. PO SCH (09:48)
[2019-02-26] MEDS: GABAPENTIN 100 MG CAPSULE. PO SCH ×3 (09:49→19:59)
[2019-02-26] MEDS: QUEtiapine 25 MG TABLET. PO SCH ×2 (09:49→19:58)
[2019-02-26] MEDS: LURASIDONE 40 MG TABLET. PO SCH (09:53)
[2019-02-26] MEDS: ALPRAZolam 0.5 MG TABLET PO PRN ×3 (09:59→23:44)
[2019-02-26] MEDS: MAG HYDROX/AL HYDROX/SIMETH 30 ML ORAL.SUSP PO PRN (13:43)
--- NOTE | 2019-02-26 15:08 | NUR ---
Morena has had a good morning, she has been a little anxious. Gave PRN xanax with morning medications. Took medications well this morning and allowed for morning assessment. Did mention some epigastric pain last night and some this morning. Gave PRN Magnesium hydroxide. Plan to follow up with Dr. Duncan in regards to this. No agitation noted at this time.
[2019-02-26 15:57] VITALS: BP 131/71
[2019-02-26] MEDS: TAMSULOSIN 0.4 MG CAP.ER.24H. PO SCH (19:59)
[2019-02-26] MEDS: MIRTAZAPINE 15 MG TABLET PO SCH (19:59)
--- NOTE | 2019-02-26 21:38 | PDOC ---
Exam Note: Edwin Note: Please also refer to the separate dictated note~for this date of service dictated separately.~Patient seen individually. Discussed the patient with Nursing staff reviewed the chart.~Reviewed interim history and current functioning. Reviewed vital signs,~Labs/ Radiology~and current medications noted below. Continue current treatment with the changes noted in the dictated addendum note Assessment: Vital Signs: Vital Signs Date Time Temp Pulse Resp B/P (MAP) Pulse Ox O2 Delivery O2 Flow Rate FiO2 02/26/19 15:57 98.3 71 16 131/71 (91) 93 Room Air I&O Intake and Output 02/26/19 07:00 Intake Total 3680 ml Balance 3680 ml Intake Oral 3680 ml # Voids 1 Current Medications: Meds: Current Medications Lactated Ringer's 1,000 ml @ 1,000 mls/hr Q1H IV Last administered on 02/21/19at 02:06; Start 02/20/19 at 23:00; Stop 02/20/19 at 23:59; Status DC Cephalexin HCl (Keflex) 500 mg 1X ONCE PO Last administered on 02/21/19at 02:07; Start 02/21/19 at 00:30; Stop 02/21/19 at 00:31; Status DC Acetaminophen (Tylenol) 650 mg PRN Q6HRS PRN PO PAIN / TEMP Last administered on 02/22/19at 13:23; Start 02/21/19 at 06:00 Multi-Ingredient Ointment (Analgesic [place]) 1 will PRN QID PRN TP MUSCLE PAIN; Start 02/21/19 at 06:00 Al Hydroxide/Mg Hydroxide (Mylanta Plus Xs) 15 ml PRN AFTMEALHC PRN PO DYSPEPSIA Last administered on 02/26/19at 13:43; Start 02/21/19 at 06:00 Magnesium Hydroxide (Milk Of Magnesia) 2,400 mg PRN QHS PRN PO CONSTIPATION; Start 02/21/19 at 06:00 Alprazolam (Xanax) 0.5 mg PRN Q6HRS PRN PO ANXIETY / AGITATION Last administered on 02/26/19at 15:37; Start 02/21/19 at 06:15 Fluvoxamine Maleate (Luvox) 50 mg DAILY07 PO Last administered on 02/21/19at 09:28; Start 02/21/19 at 07:00; Stop 02/21/19 at 09:32; Status DC Fluvoxamine Maleate (Luvox) 100 mg QHS PO Last administered on 02/26/19 19:59; Start 02/21/19 at 21:00 Mirtazapine (Remeron) 15 mg QHS PO Last administered on 02/26/19 19:59; Start 02/21/19 at 21:00 Quetiapine Fumarate (SEROquel) 37.5 mg TID@0700,1700,2100 PO Last administered on 02/21/19 09:27; Start 02/21/19 at 07:00; Stop 02/21/19 at 09:32; Status DC Gabapentin (Neurontin) 100 mg DAILY PO Last administered on 02/26/19 09:49; Start 02/21/19 at 09:00 Gabapentin (Neurontin) 200 mg BID@1300,2100 PO Last administered on 02/26/19 19:59; Start 02/21/19 at 13:00 Potassium Chloride (Klor-Con) 20 meq DAILY07 PO Last administered on 02/21/19 09:27; Start 02/21/19 at 07:00; Stop 02/21/19 at 09:32; Status DC Tamsulosin HCl (Flomax) 0.4 mg QHS PO Last administered on 02/26/19 19:59; Start 02/21/19 at 21:00 Metoclopramide HCl (Reglan) 5 mg TIDAC PO Last administered on 02/26/19 16:28; Start 02/21/19 at 07:30 Pantoprazole Sodium (Protonix) 40 mg DAILYAC PO Last administered on 02/26/19 09:47; Start 02/21/19 at 07:30 Sucralfate (Carafate) 1 gm BID@0700,1700 PO Last administered on 02/21/19 09:27; Start 02/21/19 at 07:00; Stop 02/21/19 at 09:32; Status DC Fluvoxamine Maleate (Luvox) 50 mg DAILY PO Last administered on 02/26/19 09:49; Start 02/22/19 at 09:00 Potassium Chloride (Klor-Con) 20 meq DAILY PO Last administered on 02/26/19 09:48; Start 02/22/19 at 09:00 Quetiapine Fumarate (SEROquel) 37.5 mg TID PO Last administered on 02/22/19at 19:33; Start 02/21/19 at 14:00; Stop 02/22/19 at 21:01; Status DC Sucralfate (Carafate) 1 gm BIDWMEALS PO Last administered on 02/26/19 16:28; Start 02/21/19 at 17:00 Polyethylene Glycol (miraLAX) 17 gm PRN DAILY PRN PO CONSTIPATION; Start 02/21/19 at 10:15; Stop 02/21/19 at 10:15; Status DC Polyethylene Glycol (miraLAX) 17 gm PRN DAILY PRN PO CONSTIPATION Last administered on 02/25/19 08:47; Start 02/21/19 at 10:05 Lurasidone HCl (Latuda) 20 mg DAILYWBKFT PO Last administered on 02/25/19at 08:48; Start 02/23/19 at 08:00; Stop 02/25/19 at 09:01; Status DC Lurasidone HCl (Latuda) 40 mg DAILYWBKFT PO Last administered on 02/26/19 09:53; Start 02/26/19 at 08:00; Stop 02/28/19 at 09:01 Lurasidone HCl (Latuda) 60 mg DAILYWBKFT PO ; Start 03/01/19 at 08:00 Quetiapine Fumarate (SEROquel) 37.5 mg BID PO Last administered on 02/26/19at 19:58; Start 02/23/19 at 09:00; Stop 03/01/19 at 21:01 Quetiapine Fumarate (SEROquel) 37.5 mg DAILY PO ; Start 03/02/19 at 09:00; Stop 03/09/19 at 09:01 Metoclopramide HCl (Reglan) 5 mg STK-MED ONCE .ROUTE ; Start 02/21/19 at 09:00; Stop 02/23/19 at 18:20; Status DC Metoclopramide HCl (Reglan) 5 mg STK-MED ONCE .ROUTE ; Start 02/21/19 at 09:00; Stop 02/23/19 at 18:20; Status DC Metoclopramide HCl (Reglan) 5 mg STK-MED ONCE .ROUTE ; Start 02/21/19 at 09:00; Stop 02/23/19 at 18:20; Status DC Quetiapine Fumarate (SEROquel) 37.5 mg STK-MED ONCE .ROUTE ; Start 02/21/19 at 09:00; Stop 02/23/19 at 18:20; Status DC Sucralfate (Carafate) 1 gm STK-MED ONCE PO ; Start 02/21/19 at 09:00; Stop 02/23/19 at 18:20; Status DC Metoclopramide HCl (Reglan) 5 mg STK-MED ONCE .ROUTE ; Start 02/22/19 at 09:00; Stop 02/23/19 at 18:20; Status DC Metoclopramide HCl (Reglan) 5 mg STK-MED ONCE .ROUTE ; Start 02/22/19 at 09:00; Stop 02/23/19 at 18:20; Status DC Metoclopramide HCl (Reglan) 5 mg STK-MED ONCE .ROUTE ; Start 02/22/19 at 09:00; Stop 02/23/19 at 18:20; Status DC Metoclopramide HCl (Reglan) 5 mg STK-MED ONCE .ROUTE ; Start 02/23/19 at 09:00; Stop 02/23/19 at 18:20; Status DC Metoclopramide HCl (Reglan) 5 mg STK-MED ONCE .ROUTE ; Start 02/23/19 at 09:00; Stop 02/23/19 at 18:20; Status DC Metoclopramide HCl (Reglan) 5 mg STK-MED ONCE .ROUTE ; Start 02/23/19 at 09:00; Stop 02/23/19 at 18:20; Status DC Active Scripts Active Reported Fluvoxamine Maleate 100 Mg Tablet 100 Mg PO QHS Flomax (Tamsulosin Hcl) 0.4 Mg Cap.er.24h 0.4 Mg PO QHS Maalox Advanced Suspension (Mag Hydrox/Aluminum Hyd/Simeth) 355 Ml Oral.susp 15 Ml PO PRN AFTMEALHC PRN Fluvoxamine Maleate 100 Mg Tablet 50 Mg PO DAILY07 Analgesic [place] (Methyl Salicylate/Menthol) 28 Gm Oint...g. 1 Will TP PRN Q6HRS PRN Milk Of Magnesia (Magnesium Hydroxide) 400 Mg/5 Ml Oral.susp 400 Mg PO PRN QHS PRN Acetaminophen 500 Mg Tablet 650 Mg PO PRN Q6HRS PRN Gabapentin (Gabapentin) 100 Mg Capsule 200 Mg PO [id number] Gabapentin (Gabapentin) 100 Mg Capsule 100 Mg PO DAILY Reglan (Metoclopramide Hcl) 10 Mg Tablet 5 Mg PO TIDAC take with meals at 7am, 1pm, 5pm Pantoprazole Sodium 40 Mg Tablet.dr 40 Mg PO DAILY07 Seroquel (Quetiapine Fumarate) 25 Mg Tablet 37.5 Mg PO TID@0700,1700,2100 Miralax (Polyethylene Glycol 3350) 17 Gm Powd.pack 17 Gm PO DAILY07 Klor-Con M20 (Potassium Chloride) 20 Meq Tab.er.prt 20 Meq PO DAILY07 Sucralfate 1 Gm Tablet 1 Gm PO BID@0700,1700 Mirtazapine 15 Mg Tablet 15 Mg PO QHS Reglan (Metoclopramide Hcl) 10 Mg Tablet 5 Mg PO HS Alprazolam 0.5 Mg Tablet 0.5 Mg PO PRN Q6HRS PRN I have reviewed the current psychotropics carefully including drug interactions. Risk benefit ratio favors no change other than as noted in my dictated progress note. Diagnosis: Problems: (1) Anxiety disorder (2) Impulse control disorder (3) Major depressive disorder, recurrent episode (4) Panic disorder with agoraphobia and severe panic attacks (5) Obsessive compulsive disorder MELISSA BASHIR MD Feb 26, 2019 21:38
--- NOTE | 2019-02-27 00:06 | PN ---
DATE: 02/25/2019 PSYCHIATRIC PROGRESS NOTE This late entry 02/25/2019 covers elements not covered in my initial note. SUBJECTIVE: I met with the patient in the evening. The patient slept 5 hours previous night. She has been somewhat anxious, received Xanax in the morning, keeping to herself and withdrawn. REVIEW OF SYSTEMS: Positive for anxiety. No CV, , pulmonary, eye system symptoms on review. She does have vague GI symptoms and cramps. I reminded her she had had extensive workup for this in the past at [facility], which was negative, but I will defer to Dr. Duncan for further complaints. MENTAL STATUS EXAM: Reasonably oriented. Speech is coherent, low in volume "rapid at times." Abstraction fair, computation impaired, language function intact, attention span short. Mood and affect somewhat withdrawn. LABORATORY DATA: Reviewed. IMPRESSION: Unchanged from initial note. PLAN: No change from initial note. MELISSA BASHIR MD DR: CARRILLO/praful JOB#: [id number] / [id number]
--- NOTE | 2019-02-27 00:48 | NUR ---
Behavior Intervention Response and Plan: BIRP Note: Behavior: Assumed Care of patient, patient located in Patient Room at shift change. Patient exhibited the following behavior Calm, Disorganized, Compliant. Brief assessment on rounds of vital signs, medication needs, lab studies, and pain. Treatment plan problems . Intervention: Patient assessed and the following interventions initiated safety checks 15 Minute Checks Head to toe Assessment , Call matos in reach , Medications. Response: After interactions and interventions patient responded in the following manner, Medication Seeking , Anxious ,Compliant. Continue to assess behaviors and condition will continue to monitor throughout the shift as needed. Patient educated on ADL's, and hand hygiene. Plan: Continue to monitor Master Treatment Plan for patient's progress toward short term goals of Improved Mood, Decreased Anxiety, shelter goals to return to previous living setting vs placement. Continue to assess patient for changes in above assessment. Monitor for medication needs, pain, and safety concerns. Hourly rounding performed to ensure safe environment.
[2019-02-27 06:26] VITALS: BP 101/65
[2019-02-27] MEDS: METOCLOPRAMIDE 5 MG TABLET PO SCH ×3 (07:30→16:20)
[2019-02-27] MEDS: PANTOPRAZOLE 40 MG TABLET. PO SCH (07:30)
[2019-02-27] MEDS: LURASIDONE 40 MG TABLET. PO SCH (08:00)
[2019-02-27] MEDS: SUCRALFATE 1 GM TABLET. PO SCH ×2 (08:00→16:20)
[2019-02-27] MEDS: ALPRAZolam 0.5 MG TABLET PO PRN ×2 (08:30→16:29)
[2019-02-27] MEDS: GABAPENTIN 100 MG CAPSULE. PO SCH ×3 (09:00→20:01)
[2019-02-27] MEDS: QUEtiapine 25 MG TABLET. PO SCH ×2 (09:00→20:01)
[2019-02-27] MEDS: POTASSIUM CHLORIDE 20 MEQ TABLET.ER. PO SCH (09:00)
--- NOTE | 2019-02-27 13:18 | NUR ---
Patient has had a good morning, she has been quiet and kept to herself. She did ask for her PRN xanax at breakfast time. She received this at 0830. Patient ate well, took medications, allowed with morning assessment. No agitation noted at this time.
[2019-02-27 15:54] VITALS: BP 117/61
--- NOTE | 2019-02-27 16:30 | NUR ---
Patient asked nurse for PRN xanax. She mentioned she was feeling anxious and shaking. PRN xanax given at 1635. Patient is currently visiting with family in her room.
[2019-02-27] MEDS: MIRTAZAPINE 15 MG TABLET PO SCH (20:01)
[2019-02-27] MEDS: TAMSULOSIN 0.4 MG CAP.ER.24H. PO SCH (20:02)
--- NOTE | 2019-02-27 21:42 | NUR ---
Nursing note: Assumed care of pt in her room. She wanted to see if her clothes were in her closet. She was calm and compliant with meds and assessment. She had no c/o pain and some anxiety. Explained she had an increase in a med to help with her shaking.
--- NOTE | 2019-02-27 23:08 | PDOC ---
Exam Note: Edwin Note: Please also refer to the separate dictated note~for this date of service dictated separately.~Patient seen individually. Discussed the patient with Nursing staff reviewed the chart.~Reviewed interim history and current functioning. Reviewed vital signs,~Labs/ Radiology~and current medications noted below. Continue current treatment with the changes noted in the dictated addendum note Assessment: Vital Signs: Vital Signs Date Time Temp Pulse Resp B/P (MAP) Pulse Ox O2 Delivery O2 Flow Rate FiO2 02/27/19 15:54 98.0 92 20 117/61 (79) 97 02/26/19 15:57 Room Air I&O Intake and Output 02/27/19 07:00 Intake Total 720 ml Balance 720 ml Intake Oral 720 ml # Voids 1 Current Medications: Meds: Current Medications Lactated Ringer's 1,000 ml @ 1,000 mls/hr Q1H IV Last administered on 02/21/19 02:06; Start 02/20/19 at 23:00; Stop 02/20/19 at 23:59; Status DC Cephalexin HCl (Keflex) 500 mg 1X ONCE PO Last administered on 02/21/19at 02:07; Start 02/21/19 at 00:30; Stop 02/21/19 at 00:31; Status DC Acetaminophen (Tylenol) 650 mg PRN Q6HRS PRN PO PAIN / TEMP Last administered on 02/22/19at 13:23; Start 02/21/19 at 06:00 Multi-Ingredient Ointment (Analgesic [place]) 1 will PRN QID PRN TP MUSCLE PAIN; Start 02/21/19 at 06:00 Al Hydroxide/Mg Hydroxide (Mylanta Plus Xs) 15 ml PRN AFTMEALHC PRN PO DYSPEPSIA Last administered on 02/26/19at 13:43; Start 02/21/19 at 06:00 Magnesium Hydroxide (Milk Of Magnesia) 2,400 mg PRN QHS PRN PO CONSTIPATION; Start 02/21/19 at 06:00 Alprazolam (Xanax) 0.5 mg PRN Q6HRS PRN PO ANXIETY / AGITATION Last admi nistered on 02/27/19at 16:29; Start 02/21/19 at 06:15 Fluvoxamine Maleate (Luvox) 50 mg DAILY07 PO Last administered on 02/21/19 09:28; Start 02/21/19 at 07:00; Stop 02/21/19 at 09:32; Status DC Fluvoxamine Maleate (Luvox) 100 mg QHS PO Last administered on 02/26/19 19:59; Start 02/21/19 at 21:00; Stop 02/27/19 at 17:18; Status DC Mirtazapine (Remeron) 15 mg QHS PO Last administered on 02/27/19 20:01; Start 02/21/19 at 21:00 Quetiapine Fumarate (SEROquel) 37.5 mg TID@0700,1700,2100 PO Last administered on 02/21/19 09:27; Start 02/21/19 at 07:00; Stop 02/21/19 at 09:32; Status DC Gabapentin (Neurontin) 100 mg DAILY PO Last administered on 02/27/19 09:00; Start 02/21/19 at 09:00 Gabapentin (Neurontin) 200 mg BID@1300,2100 PO Last administered on 02/27/19 20:01; Start 02/21/19 at 13:00 Potassium Chloride (Klor-Con) 20 meq DAILY07 PO Last administered on 02/21/19 09:27; Start 02/21/19 at 07:00; Stop 02/21/19 at 09:32; Status DC Tamsulosin HCl (Flomax) 0.4 mg QHS PO Last administered on 02/27/19 20:02; Start 02/21/19 at 21:00 Metoclopramide HCl (Reglan) 5 mg TIDAC PO Last administered on 02/27/19 16:20; Start 02/21/19 at 07:30 Pantoprazole Sodium (Protonix) 40 mg DAILYAC PO Last administered on 02/27/19 07:30; Start 02/21/19 at 07:30 Sucralfate (Carafate) 1 gm BID@0700,1700 PO Last administered on 02/21/19 09:27; Start 02/21/19 at 07:00; Stop 02/21/19 at 09:32; Status DC Fluvoxamine Maleate (Luvox) 50 mg DAILY PO Last administered on 02/27/19 09:00; Start 02/22/19 at 09:00 Potassium Chloride (Klor-Con) 20 meq DAILY PO Last administered on 02/27/19 09:00; Start 02/22/19 at 09:00 Quetiapine Fumarate (SEROquel) 37.5 mg TID PO Last administered on 02/22/19at 19:33; Start 02/21/19 at 14:00; Stop 02/22/19 at 21:01; Status DC Sucralfate (Carafate) 1 gm BIDWMEALS PO Last administered on 02/27/19at 16:20; Start 02/21/19 at 17:00 Polyethylene Glycol (miraLAX) 17 gm PRN DAILY PRN PO CONSTIPATION; Start 02/21/19 at 10:15; Stop 02/21/19 at 10:15; Status DC Polyethylene Glycol (miraLAX) 17 gm PRN DAILY PRN PO CONSTIPATION Last administered on 02/25/19at 08:47; Start 02/21/19 at 10:05 Lurasidone HCl (Latuda) 20 mg DAILYWBKFT PO Last administered on 02/25/19at 08:48; Start 02/23/19 at 08:00; Stop 02/25/19 at 09:01; Status DC Lurasidone HCl (Latuda) 40 mg DAILYWBKFT PO Last administered on 02/27/19at 08:00; Start 02/26/19 at 08:00; Stop 02/28/19 at 09:01 Lurasidone HCl (Latuda) 60 mg DAILYWBKFT PO ; Start 03/01/19 at 08:00 Quetiapine Fumarate (SEROquel) 37.5 mg BID PO Last administered on 02/27/19at 20:01; Start 02/23/19 at 09:00; Stop 03/01/19 at 21:01 Quetiapine Fumarate (SEROquel) 37.5 mg DAILY PO ; Start 03/02/19 at 09:00; Stop 03/09/19 at 09:01 Metoclopramide HCl (Reglan) 5 mg STK-MED ONCE .ROUTE ; Start 02/21/19 at 09:00; Stop 02/23/19 at 18:20; Status DC Metoclopramide HCl (Reglan) 5 mg STK-MED ONCE .ROUTE ; Start 02/21/19 at 09:00; Stop 02/23/19 at 18:20; Status DC Metoclopramide HCl (Reglan) 5 mg STK-MED ONCE .ROUTE ; Start 02/21/19 at 09:00; Stop 02/23/19 at 18:20; Status DC Quetiapine Fumarate (SEROquel) 37.5 mg STK-MED ONCE .ROUTE ; Start 02/21/19 at 09:00; Stop 02/23/19 at 18:20; Status DC Sucralfate (Carafate) 1 gm STK-MED ONCE PO ; Start 02/21/19 at 09:00; Stop 02/23/19 at 18:20; Status DC Metoclopramide HCl (Reglan) 5 mg STK-MED ONCE .ROUTE ; Start 02/22/19 at 09:00; Stop 02/23/19 at 18:20; Status DC Metoclopramide HCl (Reglan) 5 mg STK-MED ONCE .ROUTE ; Start 02/22/19 at 09:00; Stop 02/23/19 at 18:20; Status DC Metoclopramide HCl (Reglan) 5 mg STK-MED ONCE .ROUTE ; Start 02/22/19 at 09:00; Stop 02/23/19 at 18:20; Status DC Metoclopramide HCl (Reglan) 5 mg STK-MED ONCE .ROUTE ; Start 02/23/19 at 09:00; Stop 02/23/19 at 18:20; Status DC Metoclopramide HCl (Reglan) 5 mg STK-MED ONCE .ROUTE ; Start 02/23/19 at 09:00; Stop 02/23/19 at 18:20; Status DC Metoclopramide HCl (Reglan) 5 mg STK-MED ONCE .ROUTE ; Start 02/23/19 at 09:00; Stop 02/23/19 at 18:20; Status DC Fluvoxamine Maleate (Luvox) 100 mg QHS PO Last administered on 02/27/19at 20:00; Start 02/27/19 at 21:00 Fluvoxamine Maleate (Luvox) 25 mg HS PO Last administered on 02/27/19at 20:01; Start 02/27/19 at 21:00 Active Scripts Active Reported Fluvoxamine Maleate 100 Mg Tablet 100 Mg PO QHS Flomax (Tamsulosin Hcl) 0.4 Mg Cap.er.24h 0.4 Mg PO QHS Maalox Advanced Suspension (Mag Hydrox/Aluminum Hyd/Simeth) 355 Ml Oral.susp 15 Ml PO PRN AFTMEALHC PRN Fluvoxamine Maleate 100 Mg Tablet 50 Mg PO DAILY07 Analgesic [place] (Methyl Salicylate/Menthol) 28 Gm Oint...g. 1 Will TP PRN Q6HRS PRN Milk Of Magnesia (Magnesium Hydroxide) 400 Mg/5 Ml Oral.susp 400 Mg PO PRN QHS PRN Acetaminophen 500 Mg Tablet 650 Mg PO PRN Q6HRS PRN Gabapentin (Gabapentin) 100 Mg Capsule 200 Mg PO [id number] Gabapentin (Gabapentin) 100 Mg Capsule 100 Mg PO DAILY Reglan (Metoclopramide Hcl) 10 Mg Tablet 5 Mg PO TIDAC take with meals at 7am, 1pm, 5pm Pantoprazole Sodium 40 Mg Tablet.dr 40 Mg PO DAILY07 Seroquel (Quetiapine Fumarate) 25 Mg Tablet 37.5 Mg PO TID@0700,1700,2100 Miralax (Polyethylene Glycol 3350) 17 Gm Powd.pack 17 Gm PO DAILY07 Klor-Con M20 (Potassium Chloride) 20 Meq Tab.er.prt 20 Meq PO DAILY07 Sucralfate 1 Gm Tablet 1 Gm PO BID@0700,1700 Mirtazapine 15 Mg Tablet 15 Mg PO QHS Reglan (Metoclopramide Hcl) 10 Mg Tablet 5 Mg PO HS Alprazolam 0.5 Mg Tablet 0.5 Mg PO PRN Q6HRS PRN I have reviewed the current psychotropics carefully including drug interactions. Risk benefit ratio favors no change other than as noted in my dictated progress note. Diagnosis: Problems: (1) Anxiety disorder (2) Impulse control disorder (3) Major depressive disorder, recurrent episode (4) Panic disorder with agoraphobia and severe panic attacks (5) Obsessive compulsive disorder MELISSA BASHIR MD February 27, 2019 23:08
--- NOTE | 2019-02-28 00:42 | PN ---
DATE: 02/26/2019 PSYCHIATRIC PROGRESS NOTE This late entry 02/26/2019 covers elements not covered in my initial note. SUBJECTIVE: I met with the patient in the evening. The patient slept 7 hours previous night. She has vague somatic symptoms mostly GI symptoms. She has had extensive workup in the past at [facility] and I will defer now to Dr. Duncan. She received p.r.n. Xanax at 9:00 p.m. previous night and in the morning of 02/26/2019. REVIEW OF SYSTEMS: As above. No CV, , pulmonary, eye system symptoms on review. MENTAL STATUS EXAM: Oriented reasonably. Speech is coherent, has some latency. Abstraction fair, computation impaired, language function intact, attention span short. Mood and affect remain somewhat depressed, anxious, obsessive. LABORATORY DATA: Reviewed. IMPRESSION: Unchanged from initial note. PLAN: Continue current psychotropics including Luvox, Seroquel, Latuda has been increased and we will increase further as clinically indicated to 60 mg a day on 03/01/2019. MAN Scooter BASHIR MD DR: CARRILLO/praful JOB#: [id number] / [id number]
[2019-02-28] MEDS: ACETAMINOPHEN 325 MG TABLET PO PRN ×2 (01:23→19:27)
[2019-02-28] MEDS: ALPRAZolam 0.5 MG TABLET PO PRN ×2 (01:23→15:24)
[2019-02-28 05:35] VITALS: BP 102/64
[2019-02-28] MEDS: QUEtiapine 25 MG TABLET. PO SCH ×2 (08:36→19:14)
[2019-02-28] MEDS: SUCRALFATE 1 GM TABLET. PO SCH ×2 (08:36→17:10)
[2019-02-28] MEDS: POTASSIUM CHLORIDE 20 MEQ TABLET.ER. PO SCH (08:38)
[2019-02-28] MEDS: METOCLOPRAMIDE 5 MG TABLET PO SCH ×3 (08:38→15:25)
[2019-02-28] MEDS: PANTOPRAZOLE 40 MG TABLET. PO SCH (08:38)
[2019-02-28] MEDS: GABAPENTIN 100 MG CAPSULE. PO SCH ×3 (08:40→19:14)
[2019-02-28] MEDS: LURASIDONE 40 MG TABLET. PO SCH (08:42)
--- NOTE | 2019-02-28 09:48 | NUR ---
WEEKLY ACTIVITY THERAPY NOTE Date of Admission: 02/21/2019 Date of AT Assessment: 02/24/2019 Goal aimed:to increase engagement and socialization Initial Goal: Pt. will participate in at least five Activity Therapy groups per week. Weekly progress towards goal: on track Group participation level: minimal Weekly highlights: fully engaged in morning M2M and would you rather Behaviors observed: gave journal/ felt tipped pen on Monday, sleeps in room often, less engaged as the week progressed Plan: no change to goal Beneficial adaptations: invite to groups, small/women groups perhaps
--- NOTE | 2019-02-28 10:05 | NUR ---
WEEKLY NOTE: Pt continues to report anxiety and asks for PRN's. There is concern that pt is abusing her meds (Xanax) at home. Pt does not attend very many groups; minimal participation in any activities and with peers. Tx team recommends that pt discharges to a facility that could potentially keep pt and monitor medications. SW will call pt primary care physician and see what recommendations they may have. ELOS middle of next week to the latter part (7-10 days).
[2019-02-28 16:09] VITALS: BP 196/76
--- NOTE | 2019-02-28 17:51 | NUR ---
Patient has been cooperative with staff this shift. Patient has complained of uppergastric pain after eating meals this shift. PRN medication administered. Patient has had no negative moods or behaviors observed this shift.
[2019-02-28] MEDS: TAMSULOSIN 0.4 MG CAP.ER.24H. PO SCH (19:14)
[2019-02-28] MEDS: MIRTAZAPINE 15 MG TABLET PO SCH (19:14)
[2019-02-28] MEDS: MAG HYDROX/AL HYDROX/SIMETH 30 ML ORAL.SUSP PO PRN (20:35)
--- NOTE | 2019-02-28 21:03 | NUR ---
Nursing note: Assumed care of pt in her room. She was calm and cooperative with meds and assessment. She has c/o indigestion and was given PRN Mag Hydrox per order. Pt is still withdrawn to room but pleasant.
--- NOTE | 2019-02-28 22:38 | PDOC ---
Exam Note: Edwin Note: Please also refer to the separate dictated note~for this date of service dictated separately.~Patient seen individually. Discussed the patient with Nursing staff reviewed the chart.~Reviewed interim history and current functioning. Reviewed vital signs,~Labs/ Radiology~and current medications noted below. Continue current treatment with the changes noted in the dictated addendum note Assessment: Vital Signs: Vital Signs Date Time Temp Pulse Resp B/P (MAP) Pulse Ox O2 Delivery O2 Flow Rate FiO2 02/28/19 16:09 98.0 90 19 196/76 (116) 99 02/26/19 15:57 Room Air I&O Intake and Output 02/28/19 07:00 Intake Total 960 ml Balance 960 ml Intake Oral 960 ml # Voids 1 Current Medications: Meds: Current Medications Lactated Ringer's 1,000 ml @ 1,000 mls/hr Q1H IV Last administered on 02/21/19 02:06; Start 02/20/19 at 23:00; Stop 02/20/19 at 23:59; Status DC Cephalexin HCl (Keflex) 500 mg 1X ONCE PO Last administered on 02/21/19at 02:07; Start 02/21/19 at 00:30; Stop 02/21/19 at 00:31; Status DC Acetaminophen (Tylenol) 650 mg PRN Q6HRS PRN PO PAIN / TEMP Last administered on 02/28/19 19:27; Start 02/21/19 at 06:00 Multi-Ingredient Ointment (Analgesic [place]) 1 will PRN QID PRN TP MUSCLE PAIN; Start 02/21/19 at 06:00 Al Hydroxide/Mg Hydroxide (Mylanta Plus Xs) 15 ml PRN AFTMEALHC PRN PO DYSPEPSIA Last administered on 02/28/19 20:35; Start 02/21/19 at 06:00 Magnesium Hydroxide (Milk Of Magnesia) 2,400 mg PRN QHS PRN PO CONSTIPATION; Start 02/21/19 at 06:00 Alprazolam (Xanax) 0.5 mg PRN Q6HRS PRN PO ANXIETY / AGITATION Last admin istered on 02/28/19 15:24; Start 02/21/19 at 06:15 Fluvoxamine Maleate (Luvox) 50 mg DAILY07 PO Last administered on 02/21/19 09:28; Start 02/21/19 at 07:00; Stop 02/21/19 at 09:32; Status DC Fluvoxamine Maleate (Luvox) 100 mg QHS PO Last administered on 02/26/19 19:59; Start 02/21/19 at 21:00; Stop 02/27/19 at 17:18; Status DC Mirtazapine (Remeron) 15 mg QHS PO Last administered on 02/28/19 19:14; Start 02/21/19 at 21:00 Quetiapine Fumarate (SEROquel) 37.5 mg TID@0700,1700,2100 PO Last administered on 02/21/19 09:27; Start 02/21/19 at 07:00; Stop 02/21/19 at 09:32; Status DC Gabapentin (Neurontin) 100 mg DAILY PO Last administered on 02/28/19 08:40; Start 02/21/19 at 09:00 Gabapentin (Neurontin) 200 mg BID@1300,2100 PO Last administered on 02/28/19 19:14; Start 02/21/19 at 13:00 Potassium Chloride (Klor-Con) 20 meq DAILY07 PO Last administered on 02/21/19 09:27; Start 02/21/19 at 07:00; Stop 02/21/19 at 09:32; Status DC Tamsulosin HCl (Flomax) 0.4 mg QHS PO Last administered on 02/28/19 19:14; Start 02/21/19 at 21:00 Metoclopramide HCl (Reglan) 5 mg TIDAC PO Last administered on 02/28/19 15:25; Start 02/21/19 at 07:30 Pantoprazole Sodium (Protonix) 40 mg DAILYAC PO Last administered on 02/28/19 08:38; Start 02/21/19 at 07:30 Sucralfate (Carafate) 1 gm BID@0700,1700 PO Last administered on 02/21/19 09:27; Start 02/21/19 at 07:00; Stop 02/21/19 at 09:32; Status DC Fluvoxamine Maleate (Luvox) 50 mg DAILY PO Last administered on 02/28/19 08:36; Start 02/22/19 at 09:00 Potassium Chloride (Klor-Con) 20 meq DAILY PO Last administered on 02/28/19 08:38; Start 02/22/19 at 09:00 Quetiapine Fumarate (SEROquel) 37.5 mg TID PO Last administered on 02/22/19at 19:33; Start 02/21/19 at 14:00; Stop 02/22/19 at 21:01; Status DC Sucralfate (Carafate) 1 gm BIDWMEALS PO Last administered on 02/28/19at 17:10; Start 02/21/19 at 17:00 Polyethylene Glycol (miraLAX) 17 gm PRN DAILY PRN PO CONSTIPATION; Start 02/21/19 at 10:15; Stop 02/21/19 at 10:15; Status DC Polyethylene Glycol (miraLAX) 17 gm PRN DAILY PRN PO CONSTIPATION Last administered on 02/25/19at 08:47; Start 02/21/19 at 10:05 Lurasidone HCl (Latuda) 20 mg DAILYWBKFT PO Last administered on 02/25/19at 08:48; Start 02/23/19 at 08:00; Stop 02/25/19 at 09:01; Status DC Lurasidone HCl (Latuda) 40 mg DAILYWBKFT PO Last administered on 02/28/19at 08:42; Start 02/26/19 at 08:00; Stop 02/28/19 at 09:02; Status DC Lurasidone HCl (Latuda) 60 mg DAILYWBKFT PO ; Start 03/01/19 at 08:00 Quetiapine Fumarate (SEROquel) 37.5 mg BID PO Last administered on 02/28/19at 19:14; Start 02/23/19 at 09:00; Stop 03/01/19 at 21:01 Quetiapine Fumarate (SEROquel) 37.5 mg DAILY PO ; Start 03/02/19 at 09:00; Stop 03/09/19 at 09:01 Metoclopramide HCl (Reglan) 5 mg STK-MED ONCE .ROUTE ; Start 02/21/19 at 09:00; Stop 02/23/19 at 18:20; Status DC Metoclopramide HCl (Reglan) 5 mg STK-MED ONCE .ROUTE ; Start 02/21/19 at 09:00; Stop 02/23/19 at 18:20; Status DC Metoclopramide HCl (Reglan) 5 mg STK-MED ONCE .ROUTE ; Start 02/21/19 at 09:00; Stop 02/23/19 at 18:20; Status DC Quetiapine Fumarate (SEROquel) 37.5 mg STK-MED ONCE .ROUTE ; Start 02/21/19 at 09:00; Stop 02/23/19 at 18:20; Status DC Sucralfate (Carafate) 1 gm STK-MED ONCE PO ; Start 02/21/19 at 09:00; Stop 02/23/19 at 18:20; Status DC Metoclopramide HCl (Reglan) 5 mg STK-MED ONCE .ROUTE ; Start 02/22/19 at 09:00; Stop 02/23/19 at 18:20; Status DC Metoclopramide HCl (Reglan) 5 mg STK-MED ONCE .ROUTE ; Start 02/22/19 at 09:00; Stop 02/23/19 at 18:20; Status DC Metoclopramide HCl (Reglan) 5 mg STK-MED ONCE .ROUTE ; Start 02/22/19 at 09:00; Stop 02/23/19 at 18:20; Status DC Metoclopramide HCl (Reglan) 5 mg STK-MED ONCE .ROUTE ; Start 02/23/19 at 09:00; Stop 02/23/19 at 18:20; Status DC Metoclopramide HCl (Reglan) 5 mg STK-MED ONCE .ROUTE ; Start 02/23/19 at 09:00; Stop 02/23/19 at 18:20; Status DC Metoclopramide HCl (Reglan) 5 mg STK-MED ONCE .ROUTE ; Start 02/23/19 at 09:00; Stop 02/23/19 at 18:20; Status DC Fluvoxamine Maleate (Luvox) 100 mg QHS PO Last administered on 02/28/19at 19:13; Start 02/27/19 at 21:00 Fluvoxamine Maleate (Luvox) 25 mg HS PO Last administered on 02/28/19at 19:13; Start 02/27/19 at 21:00 Active Scripts Active Reported Fluvoxamine Maleate 100 Mg Tablet 100 Mg PO QHS Flomax (Tamsulosin Hcl) 0.4 Mg Cap.er.24h 0.4 Mg PO QHS Maalox Advanced Suspension (Mag Hydrox/Aluminum Hyd/Simeth) 355 Ml Oral.susp 15 Ml PO PRN AFTMEALHC PRN Fluvoxamine Maleate 100 Mg Tablet 50 Mg PO DAILY07 Analgesic [place] (Methyl Salicylate/Menthol) 28 Gm Oint...g. 1 Will TP PRN Q6HRS PRN Milk Of Magnesia (Magnesium Hydroxide) 400 Mg/5 Ml Oral.susp 400 Mg PO PRN QHS PRN Acetaminophen 500 Mg Tablet 650 Mg PO PRN Q6HRS PRN Gabapentin (Gabapentin) 100 Mg Capsule 200 Mg PO [id number] Gabapentin (Gabapentin) 100 Mg Capsule 100 Mg PO DAILY Reglan (Metoclopramide Hcl) 10 Mg Tablet 5 Mg PO TIDAC take with meals at 7am, 1pm, 5pm Pantoprazole Sodium 40 Mg Tablet.dr 40 Mg PO DAILY07 Seroquel (Quetiapine Fumarate) 25 Mg Tablet 37.5 Mg PO TID@0700,1700,2100 Miralax (Polyethylene Glycol 3350) 17 Gm Powd.pack 17 Gm PO DAILY07 Klor-Con M20 (Potassium Chloride) 20 Meq Tab.er.prt 20 Meq PO DAILY07 Sucralfate 1 Gm Tablet 1 Gm PO BID@0700,1700 Mirtazapine 15 Mg Tablet 15 Mg PO QHS Reglan (Metoclopramide Hcl) 10 Mg Tablet 5 Mg PO HS Alprazolam 0.5 Mg Tablet 0.5 Mg PO PRN Q6HRS PRN I have reviewed the current psychotropics carefully including drug interactions. Risk benefit ratio favors no change other than as noted in my dictated progress note. Diagnosis: Problems: (1) Anxiety disorder (2) Impulse control disorder (3) Major depressive disorder, recurrent episode (4) Panic disorder with agoraphobia and severe panic attacks (5) Obsessive compulsive disorder MELISSA BASHIR MD February 28, 2019 22:38
[2019-03-01] MEDS: ALPRAZolam 0.5 MG TABLET PO PRN ×2 (04:35→19:48)
[2019-03-01 05:29] VITALS: BP 110/69
[2019-03-01] MEDS: PANTOPRAZOLE 40 MG TABLET. PO SCH (07:48)
[2019-03-01] MEDS: QUEtiapine 25 MG TABLET. PO SCH ×2 (07:48→19:46)
[2019-03-01] MEDS: METOCLOPRAMIDE 5 MG TABLET PO SCH ×3 (07:49→16:25)
[2019-03-01] MEDS: POTASSIUM CHLORIDE 20 MEQ TABLET.ER. PO SCH (07:49)
[2019-03-01] MEDS: SUCRALFATE 1 GM TABLET. PO SCH ×2 (07:49→16:21)
[2019-03-01] MEDS: GABAPENTIN 100 MG CAPSULE. PO SCH ×3 (07:51→19:46)
[2019-03-01] MEDS: LURASIDONE 40 MG TABLET. PO SCH (07:52)
--- NOTE | 2019-03-01 13:01 | NUR ---
STEPHANIE met with pt and pt significant other to discuss tx team goals and the medication changes to help in decreasing pt anxiety. Pt reports that at the end of the day her stomach hurts so badly that she does not sleep well. SW reports that is mainly anxiety and the tx is working on decreasing that for pt. STEPHANIE informed pt that it would help if pt would come out of her room more. STEPHANIE encouraged pt to attend group at least 3x this week and to continue checking in with nursing in event she is not feeling well, we could work on exercises to help decrease her anxiety, which will also calm pt stomach.
[2019-03-01 15:40] VITALS: BP 129/83
[2019-03-01] MEDS: TAMSULOSIN 0.4 MG CAP.ER.24H. PO SCH (19:45)
[2019-03-01] MEDS: MIRTAZAPINE 15 MG TABLET PO SCH (19:46)
--- NOTE | 2019-03-01 21:15 | NUR ---
Nursing note: Assumed care of pt in her room. She was still c/o pain in stomach but asked for anxiety med. Her PRN xanax was administered per order. She was appreciative, still reserved and withdrawn. A&OX3
--- NOTE | 2019-03-01 22:48 | PDOC ---
Exam Note: Edwin Note: Please also refer to the separate dictated note~for this date of service dictated separately.~Patient seen individually. Discussed the patient with Nursing staff reviewed the chart.~Reviewed interim history and current functioning. Reviewed vital signs,~Labs/ Radiology~and current medications noted below. Continue current treatment with the changes noted in the dictated addendum note Assessment: Vital Signs: Vital Signs Date Time Temp Pulse Resp B/P (MAP) Pulse Ox O2 Delivery O2 Flow Rate FiO2 03/01/19 15:40 97.0 81 18 129/83 (98) 98 Room Air I&O Intake and Output 03/01/19 07:00 Intake Total 960 ml Balance 960 ml Intake Oral 960 ml Current Medications: Meds: Current Medications Lactated Ringer's 1,000 ml @ 1,000 mls/hr Q1H IV Last administered on 02/21/19 02:06; Start 02/20/19 at 23:00; Stop 02/20/19 at 23:59; Status DC Cephalexin HCl (Keflex) 500 mg 1X ONCE PO Last administered on 02/21/19at 02:07; Start 02/21/19 at 00:30; Stop 02/21/19 at 00:31; Status DC Acetaminophen (Tylenol) 650 mg PRN Q6HRS PRN PO PAIN / TEMP Last administered on 02/28/19 19:27; Start 02/21/19 at 06:00 Multi-Ingredient Ointment (Analgesic [place]) 1 will PRN QID PRN TP MUSCLE PAIN; Start 02/21/19 at 06:00 Al Hydroxide/Mg Hydroxide (Mylanta Plus Xs) 15 ml PRN AFTMEALHC PRN PO DYSPEPSIA Last administered on 02/28/19 20:35; Start 02/21/19 at 06:00 Magnesium Hydroxide (Milk Of Magnesia) 2,400 mg PRN QHS PRN PO CONSTIPATION; Start 02/21/19 at 06:00 Alprazolam (Xanax) 0.5 mg PRN Q6HRS PRN PO ANXIETY / AGITATION Last administered on 03/01/19 19:48; Start 02/21/19 at 06:15 Fluvoxamine Maleate (Luvox) 50 mg DAILY07 PO Last administered on 02/21/19at 09:28; Start 02/21/19 at 07:00; Stop 02/21/19 at 09:32; Status DC Fluvoxamine Maleate (Luvox) 100 mg QHS PO Last administered on 02/26/19 19:59; Start 02/21/19 at 21:00; Stop 02/27/19 at 17:18; Status DC Mirtazapine (Remeron) 15 mg QHS PO Last administered on 03/01/19 19:46; Start 02/21/19 at 21:00 Quetiapine Fumarate (SEROquel) 37.5 mg TID@0700,1700,2100 PO Last administered on 02/21/19 09:27; Start 02/21/19 at 07:00; Stop 02/21/19 at 09:32; Status DC Gabapentin (Neurontin) 100 mg DAILY PO Last administered on 03/01/19 07:51; Start 02/21/19 at 09:00 Gabapentin (Neurontin) 200 mg BID@1300,2100 PO Last administered on 03/01/19 19:46; Start 02/21/19 at 13:00 Potassium Chloride (Klor-Con) 20 meq DAILY07 PO Last administered on 02/21/19 09:27; Start 02/21/19 at 07:00; Stop 02/21/19 at 09:32; Status DC Tamsulosin HCl (Flomax) 0.4 mg QHS PO Last administered on 03/01/19 19:45; Start 02/21/19 at 21:00 Metoclopramide HCl (Reglan) 5 mg TIDAC PO Last administered on 03/01/19 16:25; Start 02/21/19 at 07:30 Pantoprazole Sodium (Protonix) 40 mg DAILYAC PO Last administered on 03/01/19 07:48; Start 02/21/19 at 07:30 Sucralfate (Carafate) 1 gm BID@0700,1700 PO Last administered on 02/21/19 09:27; Start 02/21/19 at 07:00; Stop 02/21/19 at 09:32; Status DC Fluvoxamine Maleate (Luvox) 50 mg DAILY PO Last administered on 03/01/19 07:50; Start 02/22/19 at 09:00 Potassium Chloride (Klor-Con) 20 meq DAILY PO Last administered on 03/01/19 07:49; Start 02/22/19 at 09:00 Quetiapine Fumarate (SEROquel) 37.5 mg TID PO Last administered on 02/22/19at 19:33; Start 02/21/19 at 14:00; Stop 02/22/19 at 21:01; Status DC Sucralfate (Carafate) 1 gm BIDWMEALS PO Last administered on 03/01/19at 16:21; Start 02/21/19 at 17:00 Polyethylene Glycol (miraLAX) 17 gm PRN DAILY PRN PO CONSTIPATION; Start 02/21/19 at 10:15; Stop 02/21/19 at 10:15; Status DC Polyethylene Glycol (miraLAX) 17 gm PRN DAILY PRN PO CONSTIPATION Last administered on 02/25/19at 08:47; Start 02/21/19 at 10:05 Lurasidone HCl (Latuda) 20 mg DAILYWBKFT PO Last administered on 02/25/19at 08:48; Start 02/23/19 at 08:00; Stop 02/25/19 at 09:01; Status DC Lurasidone HCl (Latuda) 40 mg DAILYWBKFT PO Last administered on 02/28/19 08:42; Start 02/26/19 at 08:00; Stop 02/28/19 at 09:02; Status DC Lurasidone HCl (Latuda) 60 mg DAILYWBKFT PO Last administered on 03/01/19 07:52; Start 03/01/19 at 08:00 Quetiapine Fumarate (SEROquel) 37.5 mg BID PO Last administered on 03/01/19 19:46; Start 02/23/19 at 09:00; Stop 03/01/19 at 21:01; Status DC Quetiapine Fumarate (SEROquel) 37.5 mg DAILY PO ; Start 03/02/19 at 09:00; Stop 03/09/19 at 09:01 Metoclopramide HCl (Reglan) 5 mg STK-MED ONCE .ROUTE ; Start 02/21/19 at 09:00; Stop 02/23/19 at 18:20; Status DC Metoclopramide HCl (Reglan) 5 mg STK-MED ONCE .ROUTE ; Start 02/21/19 at 09:00; Stop 02/23/19 at 18:20; Status DC Metoclopramide HCl (Reglan) 5 mg STK-MED ONCE .ROUTE ; Start 02/21/19 at 09:00; Stop 02/23/19 at 18:20; Status DC Quetiapine Fumarate (SEROquel) 37.5 mg STK-MED ONCE .ROUTE ; Start 02/21/19 at 09:00; Stop 02/23/19 at 18:20; Status DC Sucralfate (Carafate) 1 gm STK-MED ONCE PO ; Start 02/21/19 at 09:00; Stop 02/23/19 at 18:20; Status DC Metoclopramide HCl (Reglan) 5 mg STK-MED ONCE .ROUTE ; Start 02/22/19 at 09:00; Stop 02/23/19 at 18:20; Status DC Metoclopramide HCl (Reglan) 5 mg STK-MED ONCE .ROUTE ; Start 02/22/19 at 09:00; Stop 02/23/19 at 18:20; Status DC Metoclopramide HCl (Reglan) 5 mg STK-MED ONCE .ROUTE ; Start 02/22/19 at 09:00; Stop 02/23/19 at 18:20; Status DC Metoclopramide HCl (Reglan) 5 mg STK-MED ONCE .ROUTE ; Start 02/23/19 at 09:00; Stop 02/23/19 at 18:20; Status DC Metoclopramide HCl (Reglan) 5 mg STK-MED ONCE .ROUTE ; Start 02/23/19 at 09:00; Stop 02/23/19 at 18:20; Status DC Metoclopramide HCl (Reglan) 5 mg STK-MED ONCE .ROUTE ; Start 02/23/19 at 09:00; Stop 02/23/19 at 18:20; Status DC Fluvoxamine Maleate (Luvox) 100 mg QHS PO Last administered on 03/01/19at 19:48; Start 02/27/19 at 21:00 Fluvoxamine Maleate (Luvox) 25 mg HS PO Last administered on 03/01/19at 19:48; Start 02/27/19 at 21:00 Active Scripts Active Reported Fluvoxamine Maleate 100 Mg Tablet 100 Mg PO QHS Flomax (Tamsulosin Hcl) 0.4 Mg Cap.er.24h 0.4 Mg PO QHS Maalox Advanced Suspension (Mag Hydrox/Aluminum Hyd/Simeth) 355 Ml Oral.susp 15 Ml PO PRN AFTMEALHC PRN Fluvoxamine Maleate 100 Mg Tablet 50 Mg PO DAILY07 Analgesic [place] (Methyl Salicylate/Menthol) 28 Gm Oint...g. 1 Will TP PRN Q6HRS PRN Milk Of Magnesia (Magnesium Hydroxide) 400 Mg/5 Ml Oral.susp 400 Mg PO PRN QHS PRN Acetaminophen 500 Mg Tablet 650 Mg PO PRN Q6HRS PRN Gabapentin (Gabapentin) 100 Mg Capsule 200 Mg PO [id number] Gabapentin (Gabapentin) 100 Mg Capsule 100 Mg PO DAILY Reglan (Metoclopramide Hcl) 10 Mg Tablet 5 Mg PO TIDAC take with meals at 7am, 1pm, 5pm Pantoprazole Sodium 40 Mg Tablet.dr 40 Mg PO DAILY07 Seroquel (Quetiapine Fumarate) 25 Mg Tablet 37.5 Mg PO TID@0700,1700,2100 Miralax (Polyethylene Glycol 3350) 17 Gm Powd.pack 17 Gm PO DAILY07 Klor-Con M20 (Potassium Chloride) 20 Meq Tab.er.prt 20 Meq PO DAILY07 Sucralfate 1 Gm Tablet 1 Gm PO BID@0700,1700 Mirtazapine 15 Mg Tablet 15 Mg PO QHS Reglan (Metoclopramide Hcl) 10 Mg Tablet 5 Mg PO HS Alprazolam 0.5 Mg Tablet 0.5 Mg PO PRN Q6HRS PRN I have reviewed the current psychotropics carefully including drug interactions. Risk benefit ratio favors no change other than as noted in my dictated progress note. Diagnosis: Problems: (1) Anxiety disorder (2) Impulse control disorder (3) Major depressive disorder, recurrent episode (4) Panic disorder with agoraphobia and severe panic attacks (5) Obsessive compulsive disorder MELISSA BASHIR MD March 01, 2019 22:48
--- NOTE | 2019-03-01 23:19 | PN ---
DATE: 02/27/2019 PSYCHIATRIC PROGRESS NOTE This late entry 02/27/2019 covers elements not covered in my initial note. SUBJECTIVE: I met with the patient in the evening. The patient slept 7 hours previous night. She has had some tremors and we will consult Dr. Silva for this. She has had Xanax x 2 in the morning and at 4:30 p.m. REVIEW OF SYSTEMS: Positive for some GI symptoms. No CV, , pulmonary, eye system symptoms on review. MENTAL STATUS EXAM: Reasonably oriented. Speech is coherent, has some latency. Abstraction fair, computation impaired, language function intact, attention span short. Mood and affect, anxious, depressed, somewhat obsessive. LABORATORY DATA: Reviewed. IMPRESSION: Unchanged from initial note. PLAN: Increase Luvox from 50 mg a.m., 100 at bedtime to 50 mg a.m., 125 at bedtime. Rest unchanged per initial note. MAN MJoan BASHIR MD DR: CARRILLO/praful JOB#: [id number] / [id number]
--- NOTE | 2019-03-01 23:22 | PN ---
DATE: 02/28/2019 PSYCHIATRIC PROGRESS NOTE This late entry 02/28/2019 covers elements not covered in my initial note. SUBJECTIVE: I met with the patient in the evening. The patient slept 6-1/2 hours previous evening, remains somewhat anxious, and staffed at treatment team meeting in the morning. She continues to have GI symptoms. REVIEW OF SYSTEMS: No CV, , pulmonary, eye system symptoms on review. MENTAL STATUS EXAM: Reasonably oriented. Speech has some latency, coherent. Abstraction fair, computation impaired, language function intact, attention span short. Mood and affect still anxious, withdrawn. LABORATORY MEDICATIONS: Reviewed. Discussed assisted living placement at the [facility] versus the facility at [facility] and [facility]. Social Service staff will follow up with Sumit, the patient's son on this. LABORATORY DATA: Reviewed. IMPRESSION: Major depressive disorder, recurrent; anxiety disorder, unspecified; panic disorder; obsessive-compulsive disorder. PLAN: Continue current psychotropics, arrange appropriate placement per social service staff. MELISSA BASHIR MD DR: CARRILLO/praful JOB#: [id number] / [id number]
[2019-03-02 06:22] VITALS: BP 98/59
[2019-03-02 07:31] LABS: BASO % 1 % (0-3); EOS # 0.1 x10^3/uL (0.0-0.7); EOS % 3 % (0-3); HEMATOCRIT 36.4 % (36.0-47.0); HEMOGLOBIN 12.1 g/dL (12.0-15.5); LYMPH % 35 % (24-48); MEAN CORPUSCULAR HEMOGLOBIN 34 pg (25-35); MEAN CORPUSCULAR HGB CONC 33 g/dL (31-37); MEAN CORPUSCULAR VOLUME 101 fL (79-100); MONO # 0.3 x10^3/uL (0.0-1.1); MONO % 12 % (0-9); NEUT # 1.5 x10^3uL (1.8-7.7); NEUT % 50 % (31-73); PLATELET COUNT 214 x10^3/uL (140-400); RED CELL DISTRIBUTION WIDTH 13.2 % (11.5-14.5); WHITE BLOOD COUNT 2.9 x10^3/uL (4.0-11.0)
[2019-03-02 07:56] LABS: ALBUMIN 3.3 g/dL (3.4-5.0); CALCIUM 8.9 mg/dL (8.5-10.1); CREATININE 0.8 mg/dL (0.6-1.0); GFR 70.3; POTASSIUM 3.9 mmol/L (3.5-5.1); TOTAL BILIRUBIN 0.3 mg/dL (0.2-1.0); TOTAL PROTEIN 6.7 g/dL (6.4-8.2)
[2019-03-02] MEDS: METOCLOPRAMIDE 5 MG TABLET PO SCH ×3 (08:07→16:40)
[2019-03-02] MEDS: PANTOPRAZOLE 40 MG TABLET. PO SCH (08:07)
[2019-03-02] MEDS: SUCRALFATE 1 GM TABLET. PO SCH ×2 (08:07→16:40)
[2019-03-02] MEDS: POTASSIUM CHLORIDE 20 MEQ TABLET.ER. PO SCH (08:08)
[2019-03-02] MEDS: LURASIDONE 40 MG TABLET. PO SCH (08:08)
[2019-03-02] MEDS: GABAPENTIN 100 MG CAPSULE. PO SCH ×3 (08:12→21:02)
[2019-03-02] MEDS: QUEtiapine 25 MG TABLET. PO SCH (08:12)
[2019-03-02] MEDS: ALPRAZolam 0.5 MG TABLET PO PRN ×2 (08:14→14:33)
--- NOTE | 2019-03-02 11:28 | NUR ---
Pt is calm, cooperative, compliant and calm, however she does present with anxiety and requests PRN xanax. No hallucinations or delusions noted. No agitation or aggression noted. Pt is cooperative with her medication and assessment. Denies SI/HI.
[2019-03-02 16:17] VITALS: BP 116/70
[2019-03-02] MEDS: TAMSULOSIN 0.4 MG CAP.ER.24H. PO SCH (21:02)
[2019-03-02] MEDS: MIRTAZAPINE 15 MG TABLET PO SCH (21:02)
--- NOTE | 2019-03-02 22:40 | NUR ---
PT in room at time of assessment and medication administration. PT very concerned and agitated that her underwear would not get washed tonight. This brief writer personally took her underwear to the washing machine where it was immediately started with the currently already loaded laundry. PT compliant with medications and assessment. PT complained of no pain. PT confirmed that she had not seen Dr. Silva for her "shaking" today. Advised PT that this would be noted with tomorrow day shift to verify. After laundry taken, PT was calm and cooperative fully.
--- NOTE | 2019-03-02 23:14 | PDOC ---
Exam Note: Edwin Note: Please also refer to the separate dictated note~for this date of service dictated separately.~Patient seen individually. Discussed the patient with Nursing staff reviewed the chart.~Reviewed interim history and current functioning. Reviewed vital signs,~Labs/ Radiology~and current medications noted below. Continue current treatment with the changes noted in the dictated addendum note Assessment: Vital Signs: Vital Signs Date Time Temp Pulse Resp B/P (MAP) Pulse Ox O2 Delivery O2 Flow Rate FiO2 03/02/19 16:17 98.6 100 24 116/70 (85) 96 03/02/19 06:22 Room Air I&O Intake and Output 03/02/19 06:59 Intake Total 840 ml Balance 840 ml Intake Oral 840 ml Labs: Laboratory Tests Test 03/02/19 06:58 White Blood Count 2.9 x10^3/uL (4.0-11.0) L Red Blood Count 3.60 x10^6/uL (3.50-5.40) Hemoglobin 12.1 g/dL (12.0-15.5) Hematocrit 36.4 % (36.0-47.0) Mean Corpuscular Volume 101 fL (79-100) H Mean Corpuscular Hemoglobin 34 pg (25-35) Mean Corpuscular Hemoglobin Concent 33 g/dL (31-37) Red Cell Distribution Width 13.2 % (11.5-14.5) Platelet Count 214 x10^3/uL (140-400) Neutrophils (%) (Auto) 50 % (31-73) Lymphocytes (%) (Auto) 35 % (24-48) Monocytes (%) (Auto) 12 % (0-9) H Eosinophils (%) (Auto) 3 % (0-3) Basophils (%) (Auto) 1 % (0-3) Neutrophils # (Auto) 1.5 x10^3uL (1.8-7.7) L Lymphocytes # (Auto) 1.0 x10^3/uL (1.0-4.8) Monocytes # (Auto) 0.3 x10^3/uL (0.0-1.1) Eosinophils # (Auto) 0.1 x10^3/uL (0.0-0.7) Basophils # (Auto) 0.0 x10^3/uL (0.0-0.2) Sodium Level 144 mmol/L (136-145) Potassium Level 3.9 mmol/L (3.5-5.1) Chloride Level 106 mmol/L (98-107) Carbon Dioxide Level 30 mmol/L (21-32) Anion Gap 8 (6-14) Blood Urea Nitrogen 16 mg/dL (7-20) Creatinine 0.8 mg/dL (0.6-1.0) Estimated GFR (Cockcroft-Gault) 70.3 BUN/Creatinine Ratio 20 (6-20) Glucose Level 90 mg/dL (70-99) Calcium Level 8.9 mg/dL (8.5-10.1) Total Bilirubin 0.3 mg/dL (0.2-1.0) Aspartate Amino Transferase (AST) 21 U/L (15-37) Alanine Aminotransferase (ALT) 15 U/L (14-59) Alkaline Phosphatase 64 U/L (46-116) Total Protein 6.7 g/dL (6.4-8.2) Albumin 3.3 g/dL (3.4-5.0) L Albumin/Globulin Ratio 1.0 (1.0-1.7) Current Medications: Meds: Current Medications Lactated Ringer's 1,000 ml @ 1,000 mls/hr Q1H IV Last administered on 02/21/19at 02:06; Start 02/20/19 at 23:00; Stop 02/20/19 at 23:59; Status DC Cephalexin HCl (Keflex) 500 mg 1X ONCE PO Last administered on 02/21/19at 02:07; Start 02/21/19 at 00:30; Stop 02/21/19 at 00:31; Status DC Acetaminophen (Tylenol) 650 mg PRN Q6HRS PRN PO PAIN / TEMP Last administered on 02/28/19at 19:27; Start 02/21/19 at 06:00 Multi-Ingredient Ointment (Analgesic [place]) 1 will PRN QID PRN TP MUSCLE PAIN; Start 02/21/19 at 06:00 Al Hydroxide/Mg Hydroxide (Mylanta Plus Xs) 15 ml PRN AFTMEALHC PRN PO DYSPEPSIA Last administered on 02/28/19at 20:35; Start 02/21/19 at 06:00 Magnesium Hydroxide (Milk Of Magnesia) 2,400 mg PRN QHS PRN PO CONSTIPATION; Start 02/21/19 at 06:00 Alprazolam (Xanax) 0.5 mg PRN Q6HRS PRN PO ANXIETY / AGITATION Last administered on 03/02/19 14:33; Start 02/21/19 at 06:15 Fluvoxamine Maleate (Luvox) 50 mg DAILY07 PO Last administered on 02/21/19 09:28; Start 02/21/19 at 07:00; Stop 02/21/19 at 09:32; Status DC Fluvoxamine Maleate (Luvox) 100 mg QHS PO Last administered on 02/26/19 19:59; Start 02/21/19 at 21:00; Stop 02/27/19 at 17:18; Status DC Mirtazapine (Remeron) 15 mg QHS PO Last administered on 03/02/19 21:02; Start 02/21/19 at 21:00 Quetiapine Fumarate (SEROquel) 37.5 mg TID@0700,1700,2100 PO Last administered on 02/21/19 09:27; Start 02/21/19 at 07:00; Stop 02/21/19 at 09:32; Status DC Gabapentin (Neurontin) 100 mg DAILY PO Last administered on 03/02/19 08:12; Start 02/21/19 at 09:00 Gabapentin (Neurontin) 200 mg BID@1300,2100 PO Last administered on 03/02/19 21:02; Start 02/21/19 at 13:00 Potassium Chloride (Klor-Con) 20 meq DAILY07 PO Last administered on 02/21/19 09:27; Start 02/21/19 at 07:00; Stop 02/21/19 at 09:32; Status DC Tamsulosin HCl (Flomax) 0.4 mg QHS PO Last administered on 03/02/19 21:02; Start 02/21/19 at 21:00 Metoclopramide HCl (Reglan) 5 mg TIDAC PO Last administered on 03/02/19 16:40; Start 02/21/19 at 07:30 Pantoprazole Sodium (Protonix) 40 mg DAILYAC PO Last administered on 03/02/19 08:07; Start 02/21/19 at 07:30 Sucralfate (Carafate) 1 gm BID@0700,1700 PO Last administered on 02/21/19 09:27; Start 02/21/19 at 07:00; Stop 02/21/19 at 09:32; Status DC Fluvoxamine Maleate (Luvox) 50 mg DAILY PO Last administered on 03/02/19 08:09; Start 02/22/19 at 09:00 Potassium Chloride (Klor-Con) 20 meq DAILY PO Last administered on 03/02/19 08:08; Start 02/22/19 at 09:00 Quetiapine Fumarate (SEROquel) 37.5 mg TID PO Last administered on 02/22/19 19:33; Start 02/21/19 at 14:00; Stop 02/22/19 at 21:01; Status DC Sucralfate (Carafate) 1 gm BIDWMEALS PO Last administered on 03/02/19 16:40; Start 02/21/19 at 17:00 Polyethylene Glycol (miraLAX) 17 gm PRN DAILY PRN PO CONSTIPATION; Start 02/21/19 at 10:15; Stop 02/21/19 at 10:15; Status DC Polyethylene Glycol (miraLAX) 17 gm PRN DAILY PRN PO CONSTIPATION Last administered on 02/25/19 08:47; Start 02/21/19 at 10:05 Lurasidone HCl (Latuda) 20 mg DAILYWBKFT PO Last administered on 02/25/19 08:48; Start 02/23/19 at 08:00; Stop 02/25/19 at 09:01; Status DC Lurasidone HCl (Latuda) 40 mg DAILYWBKFT PO Last administered on 02/28/19 08:42; Start 02/26/19 at 08:00; Stop 02/28/19 at 09:02; Status DC Lurasidone HCl (Latuda) 60 mg DAILYWBKFT PO Last administered on 03/02/19 08:08; Start 03/01/19 at 08:00 Quetiapine Fumarate (SEROquel) 37.5 mg BID PO Last administered on 03/01/19 19:46; Start 02/23/19 at 09:00; Stop 03/01/19 at 21:01; Status DC Quetiapine Fumarate (SEROquel) 37.5 mg DAILY PO Last administered on 03/02/19at 08:12; Start 03/02/19 at 09:00; Stop 03/09/19 at 09:01 Metoclopramide HCl (Reglan) 5 mg STK-MED ONCE .ROUTE ; Start 02/21/19 at 09:00; Stop 02/23/19 at 18:20; Status DC Metoclopramide HCl (Reglan) 5 mg STK-MED ONCE .ROUTE ; Start 02/21/19 at 09:00; Stop 02/23/19 at 18:20; Status DC Metoclopramide HCl (Reglan) 5 mg STK-MED ONCE .ROUTE ; Start 02/21/19 at 09:00; Stop 02/23/19 at 18:20; Status DC Quetiapine Fumarate (SEROquel) 37.5 mg STK-MED ONCE .ROUTE ; Start 02/21/19 at 09:00; Stop 02/23/19 at 18:20; Status DC Sucralfate (Carafate) 1 gm STK-MED ONCE PO ; Start 02/21/19 at 09:00; Stop 02/23/19 at 18:20; Status DC Metoclopramide HCl (Reglan) 5 mg STK-MED ONCE .ROUTE ; Start 02/22/19 at 09:00; Stop 02/23/19 at 18:20; Status DC Metoclopramide HCl (Reglan) 5 mg STK-MED ONCE .ROUTE ; Start 02/22/19 at 09:00; Stop 02/23/19 at 18:20; Status DC Metoclopramide HCl (Reglan) 5 mg STK-MED ONCE .ROUTE ; Start 02/22/19 at 09:00; Stop 02/23/19 at 18:20; Status DC Metoclopramide HCl (Reglan) 5 mg STK-MED ONCE .ROUTE ; Start 02/23/19 at 09:00; Stop 02/23/19 at 18:20; Status DC Metoclopramide HCl (Reglan) 5 mg STK-MED ONCE .ROUTE ; Start 02/23/19 at 09:00; Stop 02/23/19 at 18:20; Status DC Metoclopramide HCl (Reglan) 5 mg STK-MED ONCE .ROUTE ; Start 02/23/19 at 09:00; Stop 02/23/19 at 18:20; Status DC Fluvoxamine Maleate (Luvox) 100 mg QHS PO Last administered on 03/02/19at 21:02; Start 02/27/19 at 21:00 Fluvoxamine Maleate (Luvox) 25 mg HS PO Last administered on 03/02/19at 21:02; Start 02/27/19 at 21:00 Active Scripts Active Reported Fluvoxamine Maleate 100 Mg Tablet 100 Mg PO QHS Flomax (Tamsulosin Hcl) 0.4 Mg Cap.er.24h 0.4 Mg PO QHS Maalox Advanced Suspension (Mag Hydrox/Aluminum Hyd/Simeth) 355 Ml Oral.susp 15 Ml PO PRN AFTMEALHC PRN Fluvoxamine Maleate 100 Mg Tablet 50 Mg PO DAILY07 Analgesic [place] (Methyl Salicylate/Menthol) 28 Gm Oint...g. 1 Will TP PRN Q6HRS PRN Milk Of Magnesia (Magnesium Hydroxide) 400 Mg/5 Ml Oral.susp 400 Mg PO PRN QHS PRN Acetaminophen 500 Mg Tablet 650 Mg PO PRN Q6HRS PRN Gabapentin (Gabapentin) 100 Mg Capsule 200 Mg PO [id number] Gabapentin (Gabapentin) 100 Mg Capsule 100 Mg PO DAILY Reglan (Metoclopramide Hcl) 10 Mg Tablet 5 Mg PO TIDAC take with meals at 7am, 1pm, 5pm Pantoprazole Sodium 40 Mg Tablet.dr 40 Mg PO DAILY07 Seroquel (Quetiapine Fumarate) 25 Mg Tablet 37.5 Mg PO TID@0700,1700,2100 Miralax (Polyethylene Glycol 3350) 17 Gm Powd.pack 17 Gm PO DAILY07 Klor-Con M20 (Potassium Chloride) 20 Meq Tab.er.prt 20 Meq PO DAILY07 Sucralfate 1 Gm Tablet 1 Gm PO BID@0700,1700 Mirtazapine 15 Mg Tablet 15 Mg PO QHS Reglan (Metoclopramide Hcl) 10 Mg Tablet 5 Mg PO HS Alprazolam 0.5 Mg Tablet 0.5 Mg PO PRN Q6HRS PRN I have reviewed the current psychotropics carefully including drug interactions. Risk benefit ratio favors no change other than as noted in my dictated progress note. Diagnosis: Problems: (1) Anxiety disorder (2) Impulse control disorder (3) Major depressive disorder, recurrent episode (4) Panic disorder with agoraphobia and severe panic attacks (5) Obsessive compulsive disorder MELISSA BASHIR MD March 02, 2019 23:14
[2019-03-03 06:06] VITALS: BP 115/62
[2019-03-03] MEDS: ALPRAZolam 0.5 MG TABLET PO PRN ×2 (06:36→20:20)
[2019-03-03] MEDS: SUCRALFATE 1 GM TABLET. PO SCH ×2 (08:22→17:24)
[2019-03-03] MEDS: PANTOPRAZOLE 40 MG TABLET. PO SCH (08:22)
[2019-03-03] MEDS: METOCLOPRAMIDE 5 MG TABLET PO SCH ×3 (08:22→17:24)
[2019-03-03] MEDS: POTASSIUM CHLORIDE 20 MEQ TABLET.ER. PO SCH (08:22)
[2019-03-03] MEDS: LURASIDONE 40 MG TABLET. PO SCH (08:23)
[2019-03-03] MEDS: QUEtiapine 25 MG TABLET. PO SCH (08:24)
[2019-03-03] MEDS: GABAPENTIN 100 MG CAPSULE. PO SCH ×3 (08:25→20:20)
--- NOTE | 2019-03-03 10:20 | NUR ---
Pt is calm, cooperative, compliant and calm, however she does present with anxiety and requests PRN xanax thought each shift. No hallucinations or delusions noted. No agitation or aggression noted. Pt is cooperative with her medication and assessment. Denies SI/HI.
[2019-03-03 15:46] VITALS: BP 120/80
[2019-03-03] MEDS: MIRTAZAPINE 15 MG TABLET PO SCH (20:20)
[2019-03-03] MEDS: TAMSULOSIN 0.4 MG CAP.ER.24H. PO SCH (20:20)
--- NOTE | 2019-03-03 20:22 | NUR ---
Patient came to nurses window, ringing hands and appearing distressed. Stated she feels anxious when asked. PRN anti-anxiety medication provided per order for anxiety and will continue monitor.
--- NOTE | 2019-03-03 22:42 | PDOC ---
Exam Note: Edwin Note: Please also refer to the separate dictated note~for this date of service dictated separately.~Patient seen individually. Discussed the patient with Nursing staff reviewed the chart.~Reviewed interim history and current functioning. Reviewed vital signs,~Labs/ Radiology~and current medications noted below. Continue current treatment with the changes noted in the dictated addendum note Assessment: Vital Signs: Vital Signs Date Time Temp Pulse Resp B/P (MAP) Pulse Ox O2 Delivery O2 Flow Rate FiO2 03/03/19 15:46 98.2 84 20 120/80 (93) 98 Room Air I&O Intake and Output 03/03/19 07:00 Intake Total 840 ml Balance 840 ml Intake Oral 840 ml Current Medications: Meds: Current Medications Lactated Ringer's 1,000 ml @ 1,000 mls/hr Q1H IV Last administered on 02/21/19 02:06; Start 02/20/19 at 23:00; Stop 02/20/19 at 23:59; Status DC Cephalexin HCl (Keflex) 500 mg 1X ONCE PO Last administered on 02/21/19at 02:07; Start 02/21/19 at 00:30; Stop 02/21/19 at 00:31; Status DC Acetaminophen (Tylenol) 650 mg PRN Q6HRS PRN PO PAIN / TEMP Last administered on 02/28/19 19:27; Start 02/21/19 at 06:00 Multi-Ingredient Ointment (Analgesic [place]) 1 will PRN QID PRN TP MUSCLE PAIN; Start 02/21/19 at 06:00 Al Hydroxide/Mg Hydroxide (Mylanta Plus Xs) 15 ml PRN AFTMEALHC PRN PO DYSPEPSIA Last administered on 02/28/19 20:35; Start 02/21/19 at 06:00 Magnesium Hydroxide (Milk Of Magnesia) 2,400 mg PRN QHS PRN PO CONSTIPATION; Start 02/21/19 at 06:00 Alprazolam (Xanax) 0.5 mg PRN Q6HRS PRN PO ANXIETY / AGITATION Last administered on 03/03/19 20:20; Start 02/21/19 at 06:15 Fluvoxamine Maleate (Luvox) 50 mg DAILY07 PO Last administered on 02/21/19at 09:28; Start 02/21/19 at 07:00; Stop 02/21/19 at 09:32; Status DC Fluvoxamine Maleate (Luvox) 100 mg QHS PO Last administered on 02/26/19 19:59; Start 02/21/19 at 21:00; Stop 02/27/19 at 17:18; Status DC Mirtazapine (Remeron) 15 mg QHS PO Last administered on 03/03/19 20:20; Start 02/21/19 at 21:00 Quetiapine Fumarate (SEROquel) 37.5 mg TID@0700,1700,2100 PO Last administered on 02/21/19 09:27; Start 02/21/19 at 07:00; Stop 02/21/19 at 09:32; Status DC Gabapentin (Neurontin) 100 mg DAILY PO Last administered on 03/03/19 08:25; Start 02/21/19 at 09:00 Gabapentin (Neurontin) 200 mg BID@1300,2100 PO Last administered on 03/03/19 20:20; Start 02/21/19 at 13:00 Potassium Chloride (Klor-Con) 20 meq DAILY07 PO Last administered on 02/21/19 09:27; Start 02/21/19 at 07:00; Stop 02/21/19 at 09:32; Status DC Tamsulosin HCl (Flomax) 0.4 mg QHS PO Last administered on 03/03/19 20:20; Start 02/21/19 at 21:00 Metoclopramide HCl (Reglan) 5 mg TIDAC PO Last administered on 03/03/19 17:24; Start 02/21/19 at 07:30 Pantoprazole Sodium (Protonix) 40 mg DAILYAC PO Last administered on 03/03/19 08:22; Start 02/21/19 at 07:30 Sucralfate (Carafate) 1 gm BID@0700,1700 PO Last administered on 02/21/19 09:27; Start 02/21/19 at 07:00; Stop 02/21/19 at 09:32; Status DC Fluvoxamine Maleate (Luvox) 50 mg DAILY PO Last administered on 03/03/19 08:23; Start 02/22/19 at 09:00 Potassium Chloride (Klor-Con) 20 meq DAILY PO Last administered on 03/03/19 08:22; Start 02/22/19 at 09:00 Quetiapine Fumarate (SEROquel) 37.5 mg TID PO Last administered on 02/22/19 19:33; Start 02/21/19 at 14:00; Stop 02/22/19 at 21:01; Status DC Sucralfate (Carafate) 1 gm BIDWMEALS PO Last administered on 03/03/19 17:24; Start 02/21/19 at 17:00 Polyethylene Glycol (miraLAX) 17 gm PRN DAILY PRN PO CONSTIPATION; Start 02/21/19 at 10:15; Stop 02/21/19 at 10:15; Status DC Polyethylene Glycol (miraLAX) 17 gm PRN DAILY PRN PO CONSTIPATION Last administered on 02/25/19 08:47; Start 02/21/19 at 10:05 Lurasidone HCl (Latuda) 20 mg DAILYWBKFT PO Last administered on 02/25/19 08:48; Start 02/23/19 at 08:00; Stop 02/25/19 at 09:01; Status DC Lurasidone HCl (Latuda) 40 mg DAILYWBKFT PO Last administered on 02/28/19 08:42; Start 02/26/19 at 08:00; Stop 02/28/19 at 09:02; Status DC Lurasidone HCl (Latuda) 60 mg DAILYWBKFT PO Last administered on 03/03/19 08:23; Start 03/01/19 at 08:00 Quetiapine Fumarate (SEROquel) 37.5 mg BID PO Last administered on 03/01/19 19:46; Start 02/23/19 at 09:00; Stop 03/01/19 at 21:01; Status DC Quetiapine Fumarate (SEROquel) 37.5 mg DAILY PO Last administered on 03/03/19 08:24; Start 03/02/19 at 09:00; Stop 03/09/19 at 09:01 Metoclopramide HCl (Reglan) 5 mg STK-MED ONCE .ROUTE ; Start 02/21/19 at 09:00; Stop 02/23/19 at 18:20; Status DC Metoclopramide HCl (Reglan) 5 mg STK-MED ONCE .ROUTE ; Start 02/21/19 at 09:00; Stop 02/23/19 at 18:20; Status DC Metoclopramide HCl (Reglan) 5 mg STK-MED ONCE .ROUTE ; Start 02/21/19 at 09:00; Stop 02/23/19 at 18:20; Status DC Quetiapine Fumarate (SEROquel) 37.5 mg STK-MED ONCE .ROUTE ; Start 02/21/19 at 09:00; Stop 02/23/19 at 18:20; Status DC Sucralfate (Carafate) 1 gm STK-MED ONCE PO ; Start 02/21/19 at 09:00; Stop 02/23/19 at 18:20; Status DC Metoclopramide HCl (Reglan) 5 mg STK-MED ONCE .ROUTE ; Start 02/22/19 at 09:00; Stop 02/23/19 at 18:20; Status DC Metoclopramide HCl (Reglan) 5 mg STK-MED ONCE .ROUTE ; Start 02/22/19 at 09:00; Stop 02/23/19 at 18:20; Status DC Metoclopramide HCl (Reglan) 5 mg STK-MED ONCE .ROUTE ; Start 02/22/19 at 09:00; Stop 02/23/19 at 18:20; Status DC Metoclopramide HCl (Reglan) 5 mg STK-MED ONCE .ROUTE ; Start 02/23/19 at 09:00; Stop 02/23/19 at 18:20; Status DC Metoclopramide HCl (Reglan) 5 mg STK-MED ONCE .ROUTE ; Start 02/23/19 at 09:00; Stop 02/23/19 at 18:20; Status DC Metoclopramide HCl (Reglan) 5 mg STK-MED ONCE .ROUTE ; Start 02/23/19 at 09:00; Stop 02/23/19 at 18:20; Status DC Fluvoxamine Maleate (Luvox) 100 mg QHS PO Last administered on 03/03/19at 20:20; Start 02/27/19 at 21:00 Fluvoxamine Maleate (Luvox) 25 mg HS PO Last administered on 03/03/19at 20:20; Start 02/27/19 at 21:00 Active Scripts Active Reported Fluvoxamine Maleate 100 Mg Tablet 100 Mg PO QHS Flomax (Tamsulosin Hcl) 0.4 Mg Cap.er.24h 0.4 Mg PO QHS Maalox Advanced Suspension (Mag Hydrox/Aluminum Hyd/Simeth) 355 Ml Oral.susp 15 Ml PO PRN AFTMEALHC PRN Fluvoxamine Maleate 100 Mg Tablet 50 Mg PO DAILY07 Analgesic [place] (Methyl Salicylate/Menthol) 28 Gm Oint...g. 1 Will TP PRN Q6HRS PRN Milk Of Magnesia (Magnesium Hydroxide) 400 Mg/5 Ml Oral.susp 400 Mg PO PRN QHS PRN Acetaminophen 500 Mg Tablet 650 Mg PO PRN Q6HRS PRN Gabapentin (Gabapentin) 100 Mg Capsule 200 Mg PO [id number] Gabapentin (Gabapentin) 100 Mg Capsule 100 Mg PO DAILY Reglan (Metoclopramide Hcl) 10 Mg Tablet 5 Mg PO TIDAC take with meals at 7am, 1pm, 5pm Pantoprazole Sodium 40 Mg Tablet.dr 40 Mg PO DAILY07 Seroquel (Quetiapine Fumarate) 25 Mg Tablet 37.5 Mg PO TID@0700,1700,2100 Miralax (Polyethylene Glycol 3350) 17 Gm Powd.pack 17 Gm PO DAILY07 Klor-Con M20 (Potassium Chloride) 20 Meq Tab.er.prt 20 Meq PO DAILY07 Sucralfate 1 Gm Tablet 1 Gm PO BID@0700,1700 Mirtazapine 15 Mg Tablet 15 Mg PO QHS Reglan (Metoclopramide Hcl) 10 Mg Tablet 5 Mg PO HS Alprazolam 0.5 Mg Tablet 0.5 Mg PO PRN Q6HRS PRN I have reviewed the current psychotropics carefully including drug interactions. Risk benefit ratio favors no change other than as noted in my dictated progress note. Diagnosis: Problems: (1) Anxiety disorder (2) Impulse control disorder (3) Major depressive disorder, recurrent episode (4) Panic disorder with agoraphobia and severe panic attacks (5) Obsessive compulsive disorder MELISSA BASHIR MD March 03, 2019 22:42
--- NOTE | 2019-03-04 02:09 | NUR ---
Patient expressed anxiety at the beginning of her shift and was given PRN xanax. She was observed watching tv after that, did not appear to be anxious. Compliant with medications, went to bed and slept well throughout the night. Calm and oriented x4.
[2019-03-04 05:59] VITALS: BP 113/74
[2019-03-04] MEDS: ALPRAZolam 0.5 MG TABLET PO PRN ×3 (06:26→21:09)
--- NOTE | 2019-03-04 06:27 | NUR ---
Patient up and dressed for the day. Requests PRN xanax for anxiety. Stated that she began to feel anxious after getting dressed. PRN xanax given per order. Will continue to monitor.
[2019-03-04] MEDS: METOCLOPRAMIDE 5 MG TABLET PO SCH ×3 (08:31→17:11)
[2019-03-04] MEDS: SUCRALFATE 1 GM TABLET. PO SCH ×2 (08:31→17:11)
[2019-03-04] MEDS: PANTOPRAZOLE 40 MG TABLET. PO SCH (08:31)
[2019-03-04] MEDS: QUEtiapine 25 MG TABLET. PO SCH (08:32)
[2019-03-04] MEDS: POTASSIUM CHLORIDE 20 MEQ TABLET.ER. PO SCH (08:32)
[2019-03-04] MEDS: GABAPENTIN 100 MG CAPSULE. PO SCH ×3 (08:32→19:48)
[2019-03-04] MEDS: LURASIDONE 40 MG TABLET. PO SCH (08:32)
--- NOTE | 2019-03-04 11:06 | NUR ---
Denies SI/HI. Pt is calm, cooperative, compliant and calm, however she does present with anxiety and requests PRN xanax thought each shift. No hallucinations or delusions noted. No agitation or aggression noted. Pt is cooperative with her medication and assessment.
[2019-03-04 15:20] VITALS: BP 106/70
[2019-03-04] MEDS: MIRTAZAPINE 15 MG TABLET PO SCH (19:48)
[2019-03-04] MEDS: TAMSULOSIN 0.4 MG CAP.ER.24H. PO SCH (19:48)
--- NOTE | 2019-03-04 21:15 | NUR ---
Patient withdrawn to room during HS med pass. She stated she was anxious and requested PRN anxiety medication. Patient got up and came to nurses station where PRN Xanax was provided to patient at 2100 for anxiety per order. Patient then went to bed and laid down.
--- NOTE | 2019-03-04 21:48 | PDOC ---
Exam Note: Edwin Note: Please also refer to the separate dictated note~for this date of service dictated separately.~Patient seen individually. Discussed the patient with Nursing staff reviewed the chart.~Reviewed interim history and current functioning. Reviewed vital signs,~Labs/ Radiology~and current medications noted below. Continue current treatment with the changes noted in the dictated addendum note Assessment: Vital Signs: Vital Signs Date Time Temp Pulse Resp B/P (MAP) Pulse Ox O2 Delivery O2 Flow Rate FiO2 03/04/19 15:20 99.1 101 18 106/70 (82) 93 03/03/19 15:46 Room Air I&O Intake and Output 03/04/19 06:59 Intake Total 800 ml Balance 800 ml Intake Oral 800 ml Current Medications: Meds: Current Medications Lactated Ringer's 1,000 ml @ 1,000 mls/hr Q1H IV Last administered on 02/21/19 at 02:06; Start 02/20/19 at 23:00; Stop 02/20/19 at 23:59; Status DC Cephalexin HCl (Keflex) 500 mg 1X ONCE PO Last administered on 02/21/19at 02:07; Start 02/21/19 at 00:30; Stop 02/21/19 at 00:31; Status DC Acetaminophen (Tylenol) 650 mg PRN Q6HRS PRN PO PAIN / TEMP Last administered on 02/28/19 19:27; Start 02/21/19 at 06:00 Multi-Ingredient Ointment (Analgesic [place]) 1 will PRN QID PRN TP MUSCLE PAIN; Start 02/21/19 at 06:00 Al Hydroxide/Mg Hydroxide (Mylanta Plus Xs) 15 ml PRN AFTMEALHC PRN PO DYSP EPSIA Last administered on 02/28/19at 20:35; Start 02/21/19 at 06:00 Magnesium Hydroxide (Milk Of Magnesia) 2,400 mg PRN QHS PRN PO CONSTIPATION; Start 02/21/19 at 06:00 Alprazolam (Xanax) 0.5 mg PRN Q6HRS PRN PO ANXIETY / AGITATION Last administered on 03/04/19at 21:09; Start 02/21/19 at 06:15 Fluvoxamine Maleate (Luvox) 50 mg DAILY07 PO Last administered on 02/21/19at 09:28; Start 02/21/19 at 07:00; Stop 02/21/19 at 09:32; Status DC Fluvoxamine Maleate (Luvox) 100 mg QHS PO Last administered on 02/26/19 19:59; Start 02/21/19 at 21:00; Stop 02/27/19 at 17:18; Status DC Mirtazapine (Remeron) 15 mg QHS PO Last administered on 03/04/19 19:48; Start 02/21/19 at 21:00 Quetiapine Fumarate (SEROquel) 37.5 mg TID@0700,1700,2100 PO Last administered on 02/21/19 09:27; Start 02/21/19 at 07:00; Stop 02/21/19 at 09:32; Status DC Gabapentin (Neurontin) 100 mg DAILY PO Last administered on 03/04/19 08:32; Start 02/21/19 at 09:00 Gabapentin (Neurontin) 200 mg BID@1300,2100 PO Last administered on 03/04/19 19:48; Start 02/21/19 at 13:00 Potassium Chloride (Klor-Con) 20 meq DAILY07 PO Last administered on 02/21/19 09:27; Start 02/21/19 at 07:00; Stop 02/21/19 at 09:32; Status DC Tamsulosin HCl (Flomax) 0.4 mg QHS PO Last administered on 03/04/19 19:48; Start 02/21/19 at 21:00 Metoclopramide HCl (Reglan) 5 mg TIDAC PO Last administered on 03/04/19 17:11; Start 02/21/19 at 07:30 Pantoprazole Sodium (Protonix) 40 mg DAILYAC PO Last administered on 03/04/19 08:31; Start 02/21/19 at 07:30 Sucralfate (Carafate) 1 gm BID@0700,1700 PO Last administered on 02/21/19 09:27; Start 02/21/19 at 07:00; Stop 02/21/19 at 09:32; Status DC Fluvoxamine Maleate (Luvox) 50 mg DAILY PO Last administered on 03/04/19 08:32; Start 4/26/19 at 09:00 Potassium Chloride (Klor-Con) 20 meq DAILY PO Last administered on 03/04/19 08:32; Start 02/22/19 at 09:00 Quetiapine Fumarate (SEROquel) 37.5 mg TID PO Last administered on 02/22/19 19:33; Start 02/21/19 at 14:00; Stop 02/22/19 at 21:01; Status DC Sucralfate (Carafate) 1 gm BIDWMEALS PO Last administered on 03/04/19 17:11; Start 02/21/19 at 17:00 Polyethylene Glycol (miraLAX) 17 gm PRN DAILY PRN PO CONSTIPATION; Start 02/21/19 at 10:15; Stop 02/21/19 at 10:15; Status DC Polyethylene Glycol (miraLAX) 17 gm PRN DAILY PRN PO CONSTIPATION Last administered on 02/25/19 08:47; Start 02/21/19 at 10:05 Lurasidone HCl (Latuda) 20 mg DAILYWBKFT PO Last administered on 02/25/19 08:48; Start 02/23/19 at 08:00; Stop 02/25/19 at 09:01; Status DC Lurasidone HCl (Latuda) 40 mg DAILYWBKFT PO Last administered on 02/28/19 08:42; Start 02/26/19 at 08:00; Stop 02/28/19 at 09:02; Status DC Lurasidone HCl (Latuda) 60 mg DAILYWBKFT PO Last administered on 03/04/19 08:32; Start 03/01/19 at 08:00 Quetiapine Fumarate (SEROquel) 37.5 mg BID PO Last administered on 03/01/19 19:46; Start 02/23/19 at 09:00; Stop 03/01/19 at 21:01; Status DC Quetiapine Fumarate (SEROquel) 37.5 mg DAILY PO Last administered on 03/04/19 08:32; Start 03/02/19 at 09:00; Stop 03/09/19 at 09:01 Metoclopramide HCl (Reglan) 5 mg STK-MED ONCE .ROUTE ; Start 02/21/19 at 09:00; Stop 02/23/19 at 18:20; Status DC Metoclopramide HCl (Reglan) 5 mg STK-MED ONCE .ROUTE ; Start 02/21/19 at 09:00; Stop 02/23/19 at 18:20; Status DC Metoclopramide HCl (Reglan) 5 mg STK-MED ONCE .ROUTE ; Start 02/21/19 at 09:00; Stop 02/23/19 at 18:20; Status DC Quetiapine Fumarate (SEROquel) 37.5 mg STK-MED ONCE .ROUTE ; Start 02/21/19 at 0 9:00; Stop 02/23/19 at 18:20; Status DC Sucralfate (Carafate) 1 gm STK-MED ONCE PO ; Start 02/21/19 at 09:00; Stop 02/23/19 at 18:20; Status DC Metoclopramide HCl (Reglan) 5 mg STK-MED ONCE .ROUTE ; Start 02/22/19 at 09:00; Stop 02/23/19 at 18:20; Status DC Metoclopramide HCl (Reglan) 5 mg STK-MED ONCE .ROUTE ; Start 02/22/19 at 09:00; Stop 02/23/19 at 18:20; Status DC Metoclopramide HCl (Reglan) 5 mg STK-MED ONCE .ROUTE ; Start 02/22/19 at 09:00; Stop 02/23/19 at 18:20; Status DC Metoclopramide HCl (Reglan) 5 mg STK-MED ONCE .ROUTE ; Start 02/23/19 at 09:00; Stop 02/23/19 at 18:20; Status DC Metoclopramide HCl (Reglan) 5 mg STK-MED ONCE .ROUTE ; Start 02/23/19 at 09:00; Stop 02/23/19 at 18:20; Status DC Metoclopramide HCl (Reglan) 5 mg STK-MED ONCE .ROUTE ; Start 02/23/19 at 09:00; Stop 02/23/19 at 18:20; Status DC Fluvoxamine Maleate (Luvox) 100 mg QHS PO Last administered on 03/04/19at 19:48; Start 02/27/19 at 21:00 Fluvoxamine Maleate (Luvox) 25 mg HS PO Last administered on 03/04/19at 19:48; Start 02/27/19 at 21:00 Active Scripts Active Reported Fluvoxamine Maleate 100 Mg Tablet 100 Mg PO QHS Flomax (Tamsulosin Hcl) 0.4 Mg Cap.er.24h 0.4 Mg PO QHS Maalox Advanced Suspension (Mag Hydrox/Aluminum Hyd/Simeth) 355 Ml Oral.susp 15 Ml PO PRN AFTMEALHC PRN Fluvoxamine Maleate 100 Mg Tablet 50 Mg PO DAILY07 Analgesic [place] (Methyl Salicylate/Menthol) 28 Gm Oint...g. 1 Will TP PRN Q6HRS PRN Milk Of Magnesia (Magnesium Hydroxide) 400 Mg/5 Ml Oral.susp 400 Mg PO PRN QHS PRN Acetaminophen 500 Mg Tablet 650 Mg PO PRN Q6HRS PRN Gabapentin (Gabapentin) 100 Mg Capsule 200 Mg PO [id number] Gabapentin (Gabapentin) 100 Mg Capsule 100 Mg PO DAILY Reglan (Metoclopramide Hcl) 10 Mg Tablet 5 Mg PO TIDAC take with meals at 7am, 1pm, 5pm Pantoprazole Sodium 40 Mg Tablet.dr 40 Mg PO DAILY07 Seroquel (Quetiapine Fumarate) 25 Mg Tablet 37.5 Mg PO TID@0700,1700,2100 Miralax (Polyethylene Glycol 3350) 17 Gm Powd.pack 17 Gm PO DAILY07 Klor-Con M20 (Potassium Chloride) 20 Meq Tab.er.prt 20 Meq PO DAILY07 Sucralfate 1 Gm Tablet 1 Gm PO BID@0700,1700 Mirtazapine 15 Mg Tablet 15 Mg PO QHS Reglan (Metoclopramide Hcl) 10 Mg Tablet 5 Mg PO HS Alprazolam 0.5 Mg Tablet 0.5 Mg PO PRN Q6HRS PRN I have reviewed the current psychotropics carefully including drug interactions. Risk benefit ratio favors no change other than as noted in my dictated progress note. Diagnosis: Problems: (1) Anxiety disorder (2) Impulse control disorder (3) Major depressive disorder, recurrent episode (4) Panic disorder with agoraphobia and severe panic attacks (5) Obsessive compulsive disorder MELISSA BASHIR MD March 04, 2019 21:48
--- NOTE | 2019-03-04 23:23 | NUR ---
Patient has come to nurses station reporting a stomach ache. Stated that she thinks it might be gas pains. Nurse provided PRN mylanta plus per order for dyspepsia/gas. Patient returned to bed. Will continue to monitor.
[2019-03-04] MEDS: MAG HYDROX/AL HYDROX/SIMETH 30 ML ORAL.SUSP PO PRN (23:24)
--- NOTE | 2019-03-04 23:33 | PN ---
DATE: 03/01/2019 PSYCHIATRIC PROGRESS NOTE This late entry 03/01/2019 covers elements not covered in my initial note. SUBJECTIVE: I met with the patient in the evening. The patient slept 8 hours previous night and has been sleeping during the day off and on, somewhat tired. She continues to be somatically preoccupied with GI symptoms, but no CV, , pulmonary, eye system symptoms on review. MENTAL STATUS EXAM: Reasonably oriented. Speech is coherent, abstraction fair, computation impaired, language function intact, attention span short. Mood and affect remains anxious, obsessive. LABORATORY DATA: Reviewed. IMPRESSION: Major depressive disorder with psychotic features, possible bipolar 2 disorder, depressed; obsessive-compulsive disorder; anxiety disorder, unspecified. PLAN: Continue current psychotropics from initial note. Gradually increase the Latuda, maintain the Luvox along with Seroquel, but the Seroquel is being tapered as the Latuda is being increased. MAN Scooter BASHIR MD DR: CARRILLO/praful JOB#: [id number] / [id number]
--- NOTE | 2019-03-04 23:50 | PN ---
DATE: 03/03/2019 PSYCHIATRIC PROGRESS NOTE This late entry 03/03/2019 covers elements not covered in my initial note. SUBJECTIVE: I met with the patient in the evening of 03/03/2019. The patient slept 7 hours previous night. She has been anxious, intermittently received Xanax at 8:15 a.m. and previously at 6:[address] Silva did see her for the tremors. We are waiting his consult, recommendations. REVIEW OF SYSTEMS: Positive for the tremors. No CV, , pulmonary, eye system symptoms on review. MENTAL STATUS EXAM: Reasonably oriented. Speech is coherent, has some latency. Abstraction fair, computation impaired, language function intact, attention span short. Mood and affect still somewhat anxious, obsessive, labile at times, much improved. She has less GI symptoms. LABORATORY DATA: Reviewed. IMPRESSION: Unchanged from initial note. PLAN: No change from initial note. Latuda was increased to 60 mg a day on 03/01/2019 and we may decide to increase it to 80 mg a day in a day or two. MAN Scooter BASHIR MD DR: CARRILLO/praful JOB#: [id number] / [id number]
--- NOTE | 2019-03-05 00:15 | PN ---
DATE: 03/02/2019 PSYCHIATRIC PROGRESS NOTE This late entry 03/02/2019 covers elements not covered in my initial note. SUBJECTIVE: I met with the patient in the evening of 03/02/2019. The patient slept 7 hours previous night. We are awaiting Neurology consult with Dr. Silva for her tremors. She does complain of some ongoing anxiety, takes Xanax p.r.n. REVIEW OF SYSTEMS: Positive for the tremors. No CV, , pulmonary, eye, ENT system symptoms on review. MENTAL STATUS EXAM: Reasonably oriented. Speech is coherent, abstraction fair, computation impaired, language function intact, attention span short. Mood and affect, somewhat anxious, withdrawn at times. LABORATORY DATA: Reviewed. IMPRESSION: Unchanged from initial note. PLAN: We discussed at great length individually about going to an assisted living. She has been there in the past for a few months and responded positively. At home, she sits by herself while Sumit, her significant other, goes to work all day with his son. It is when she is by herself, anxiety worsens, and she ruminates about things internally, and her somatic symptoms seem to magnify and is self-perpetuating. I addressed this at length with her, though she has limited insight and reluctant to go to an assisted living. Continue current psychotropics. We may need to adjust Luvox further along with Latuda. MELISSA BASHIR MD DR: CARRILLO/praful JOB#: [id number] / [id number]
[2019-03-05 06:09] VITALS: BP 104/69
[2019-03-05] MEDS: METOCLOPRAMIDE 5 MG TABLET PO SCH ×3 (07:41→16:34)
[2019-03-05] MEDS: PANTOPRAZOLE 40 MG TABLET. PO SCH (07:41)
[2019-03-05] MEDS: GABAPENTIN 100 MG CAPSULE. PO SCH ×3 (07:41→19:40)
[2019-03-05] MEDS: POTASSIUM CHLORIDE 20 MEQ TABLET.ER. PO SCH (07:41)
[2019-03-05] MEDS: SUCRALFATE 1 GM TABLET. PO SCH ×2 (07:41→16:34)
[2019-03-05] MEDS: QUEtiapine 25 MG TABLET. PO SCH (07:42)
[2019-03-05] MEDS: LURASIDONE 40 MG TABLET. PO SCH (07:43)
[2019-03-05] MEDS: ALPRAZolam 0.5 MG TABLET PO PRN ×2 (07:43→14:52)
[2019-03-05] MEDS: POLYETHYLENE GLYCOL 3350 17 GM PACKET. PO PRN (08:20)
--- NOTE | 2019-03-05 11:40 | NUR ---
Pt anxious and withdrawn this morning. Compliant with medications. PRN Xanax and Miralax administered per pt request.
[2019-03-05 16:18] VITALS: BP 142/82
[2019-03-05] MEDS: MIRTAZAPINE 15 MG TABLET PO SCH (19:38)
[2019-03-05] MEDS: TAMSULOSIN 0.4 MG CAP.ER.24H. PO SCH (19:38)
--- NOTE | 2019-03-05 20:33 | PN ---
DATE: 03/04/2019 PSYCHIATRIC PROGRESS NOTE This late entry 03/04/2019 covers elements not covered in my initial note. SUBJECTIVE: I met with the patient in the evening at length in her room. The patient slept 7 hours previous night. She has had p.r.n. Xanax x2. She has somatic GI symptoms and I addressed this with her as have the nursing staff and its correlation with her anxiety. No CV, , pulmonary, eye system symptoms on review. MENTAL STATUS EXAM: Reasonably oriented. Speech is coherent, a little pressured at times. Abstraction fair, computation impaired, language function intact, attention span short. We discussed staying in an assisted living and she states financially it is not possible, even though she has done this in the past for several months. LABORATORY DATA: Reviewed. No suicidal ideation. IMPRESSION: Major depressive disorder, panic disorder; bipolar 1 disorder, unspecified. Rest unchanged. PLAN: No change from initial note. May need to increase Luvox further gradually. MELISSA BASHIR MD DR: CARRILLO/praful JOB#: [id number] / [id number]
--- NOTE | 2019-03-05 22:32 | PDOC ---
Exam Note: Edwin Note: Please also refer to the separate dictated note~for this date of service dictated separately.~Patient seen individually. Discussed the patient with Nursing staff reviewed the chart.~Reviewed interim history and current functioning. Reviewed vital signs,~Labs/ Radiology~and current medications noted below. Continue current treatment with the changes noted in the dictated addendum note Assessment: Vital Signs: Vital Signs Date Time Temp Pulse Resp B/P (MAP) Pulse Ox O2 Delivery O2 Flow Rate FiO2 03/05/19 16:18 98.8 92 20 142/82 (102) 97 03/03/19 15:46 Room Air I&O Intake and Output 03/05/19 07:00 Intake Total 720 ml Balance 720 ml Intake Oral 720 ml Current Medications: Meds: Current Medications Lactated Ringer's 1,000 ml @ 1,000 mls/hr Q1H IV Last administered on 02/21/19 at 02:06; Start 02/20/19 at 23:00; Stop 02/20/19 at 23:59; Status DC Cephalexin HCl (Keflex) 500 mg 1X ONCE PO Last administered on 02/21/19at 02:07; Start 02/21/19 at 00:30; Stop 02/21/19 at 00:31; Status DC Acetaminophen (Tylenol) 650 mg PRN Q6HRS PRN PO PAIN / TEMP Last administered on 02/28/19at 19:27; Start 02/21/19 at 06:00 Multi-Ingredient Ointment (Analgesic [place]) 1 will PRN QID PRN TP MUSCLE PAIN; Start 02/21/19 at 06:00 Al Hydroxide/Mg Hydroxide (Mylanta Plus Xs) 15 ml PRN AFTMEALHC PRN PO DYSP EPSIA Last administered on 03/04/19at 23:24; Start 02/21/19 at 06:00 Magnesium Hydroxide (Milk Of Magnesia) 2,400 mg PRN QHS PRN PO CONSTIPATION; Start 02/21/19 at 06:00 Alprazolam (Xanax) 0.5 mg PRN Q6HRS PRN PO ANXIETY / AGITATION Last administered on 03/05/19at 14:52; Start 02/21/19 at 06:15 Fluvoxamine Maleate (Luvox) 50 mg DAILY07 PO Last administered on 02/21/19at 09:28; Start 02/21/19 at 07:00; Stop 02/21/19 at 09:32; Status DC Fluvoxamine Maleate (Luvox) 100 mg QHS PO Last administered on 02/26/19 19:59; Start 02/21/19 at 21:00; Stop 02/27/19 at 17:18; Status DC Mirtazapine (Remeron) 15 mg QHS PO Last administered on 03/05/19 19:38; Start 02/21/19 at 21:00 Quetiapine Fumarate (SEROquel) 37.5 mg TID@0700,1700,2100 PO Last administered on 02/21/19 09:27; Start 02/21/19 at 07:00; Stop 02/21/19 at 09:32; Status DC Gabapentin (Neurontin) 100 mg DAILY PO Last administered on 03/05/19 07:41; Start 02/21/19 at 09:00 Gabapentin (Neurontin) 200 mg BID@1300,2100 PO Last administered on 03/05/19 19:40; Start 02/21/19 at 13:00 Potassium Chloride (Klor-Con) 20 meq DAILY07 PO Last administered on 02/21/19 09:27; Start 02/21/19 at 07:00; Stop 02/21/19 at 09:32; Status DC Tamsulosin HCl (Flomax) 0.4 mg QHS PO Last administered on 03/05/19 19:38; Start 02/21/19 at 21:00 Metoclopramide HCl (Reglan) 5 mg TIDAC PO Last administered on 03/05/19 16:34; Start 02/21/19 at 07:30 Pantoprazole Sodium (Protonix) 40 mg DAILYAC PO Last administered on 03/05/19 07:41; Start 02/21/19 at 07:30 Sucralfate (Carafate) 1 gm BID@0700,1700 PO Last administered on 02/21/19 09:27; Start 02/21/19 at 07:00; Stop 02/21/19 at 09:32; Status DC Fluvoxamine Maleate (Luvox) 50 mg DAILY PO Last administered on 03/05/19 07:41; Start 02/22/19 at 09:00 Potassium Chloride (Klor-Con) 20 meq DAILY PO Last administered on 03/05/19 07:41; Start 02/22/19 at 09:00 Quetiapine Fumarate (SEROquel) 37.5 mg TID PO Last administered on 02/22/19 19:33; Start 02/21/19 at 14:00; Stop 02/22/19 at 21:01; Status DC Sucralfate (Carafate) 1 gm BIDWMEALS PO Last administered on 03/05/19 16:34; Start 02/21/19 at 17:00 Polyethylene Glycol (miraLAX) 17 gm PRN DAILY PRN PO CONSTIPATION; Start 02/21/19 at 10:15; Stop 02/21/19 at 10:15; Status DC Polyethylene Glycol (miraLAX) 17 gm PRN DAILY PRN PO CONSTIPATION Last administered on 03/05/19 08:20; Start 02/21/19 at 10:05 Lurasidone HCl (Latuda) 20 mg DAILYWBKFT PO Last administered on 02/25/19 08:48; Start 02/23/19 at 08:00; Stop 02/25/19 at 09:01; Status DC Lurasidone HCl (Latuda) 40 mg DAILYWBKFT PO Last administered on 02/28/19 08:42; Start 02/26/19 at 08:00; Stop 02/28/19 at 09:02; Status DC Lurasidone HCl (Latuda) 60 mg DAILYWBKFT PO Last administered on 03/05/19 07:43; Start 03/01/19 at 08:00 Quetiapine Fumarate (SEROquel) 37.5 mg BID PO Last administered on 03/01/19 19:46; Start 02/23/19 at 09:00; Stop 03/01/19 at 21:01; Status DC Quetiapine Fumarate (SEROquel) 37.5 mg DAILY PO Last administered on 03/05/19 07:42; Start 03/02/19 at 09:00; Stop 03/09/19 at 09:01 Metoclopramide HCl (Reglan) 5 mg STK-MED ONCE .ROUTE ; Start 02/21/19 at 09:00; Stop 02/23/19 at 18:20; Status DC Metoclopramide HCl (Reglan) 5 mg STK-MED ONCE .ROUTE ; Start 02/21/19 at 09:00; Stop 02/23/19 at 18:20; Status DC Metoclopramide HCl (Reglan) 5 mg STK-MED ONCE .ROUTE ; Start 02/21/19 at 09:00; Stop 02/23/19 at 18:20; Status DC Quetiapine Fumarate (SEROquel) 37.5 mg STK-MED ONCE .ROUTE ; Start 02/21/19 at 09:00; Stop 02/23/19 at 18:20; Status DC Sucralfate (Carafate) 1 gm STK-MED ONCE PO ; Start 02/21/19 at 09:00; Stop 02/23/19 at 18:20; Status DC Metoclopramide HCl (Reglan) 5 mg STK-MED ONCE .ROUTE ; Start 02/22/19 at 09:00; Stop 02/23/19 at 18:20; Status DC Metoclopramide HCl (Reglan) 5 mg STK-MED ONCE .ROUTE ; Start 02/22/19 at 09:00; Stop 02/23/19 at 18:20; Status DC Metoclopramide HCl (Reglan) 5 mg STK-MED ONCE .ROUTE ; Start 02/22/19 at 09:00; Stop 02/23/19 at 18:20; Status DC Metoclopramide HCl (Reglan) 5 mg STK-MED ONCE .ROUTE ; Start 02/23/19 at 09:00; Stop 02/23/19 at 18:20; Status DC Metoclopramide HCl (Reglan) 5 mg STK-MED ONCE .ROUTE ; Start 02/23/19 at 09:00; Stop 02/23/19 at 18:20; Status DC Metoclopramide HCl (Reglan) 5 mg STK-MED ONCE .ROUTE ; Start 02/23/19 at 09:00; Stop 02/23/19 at 18:20; Status DC Fluvoxamine Maleate (Luvox) 100 mg QHS PO Last administered on 03/05/19at 19:38; Start 02/27/19 at 21:00 Fluvoxamine Maleate (Luvox) 25 mg HS PO Last administered on 03/05/19at 19:38; Start 02/27/19 at 21:00 Active Scripts Active Reported Fluvoxamine Maleate 100 Mg Tablet 100 Mg PO QHS Flomax (Tamsulosin Hcl) 0.4 Mg Cap.er.24h 0.4 Mg PO QHS Maalox Advanced Suspension (Mag Hydrox/Aluminum Hyd/Simeth) 355 Ml Oral.susp 15 Ml PO PRN AFTMEALHC PRN Fluvoxamine Maleate 100 Mg Tablet 50 Mg PO DAILY07 Analgesic [place] (Methyl Salicylate/Menthol) 28 Gm Oint...g. 1 Will TP PRN Q6HRS PRN Milk Of Magnesia (Magnesium Hydroxide) 400 Mg/5 Ml Oral.susp 400 Mg PO PRN QHS PRN Acetaminophen 500 Mg Tablet 650 Mg PO PRN Q6HRS PRN Gabapentin (Gabapentin) 100 Mg Capsule 200 Mg PO [id number] Gabapentin (Gabapentin) 100 Mg Capsule 100 Mg PO DAILY Reglan (Metoclopramide Hcl) 10 Mg Tablet 5 Mg PO TIDAC take with meals at 7am, 1pm, 5pm Pantoprazole Sodium 40 Mg Tablet.dr 40 Mg PO DAILY07 Seroquel (Quetiapine Fumarate) 25 Mg Tablet 37.5 Mg PO TID@0700,1700,2100 Miralax (Polyethylene Glycol 3350) 17 Gm Powd.pack 17 Gm PO DAILY07 Klor-Con M20 (Potassium Chloride) 20 Meq Tab.er.prt 20 Meq PO DAILY07 Sucralfate 1 Gm Tablet 1 Gm PO BID@0700,1700 Mirtazapine 15 Mg Tablet 15 Mg PO QHS Reglan (Metoclopramide Hcl) 10 Mg Tablet 5 Mg PO HS Alprazolam 0.5 Mg Tablet 0.5 Mg PO PRN Q6HRS PRN I have reviewed the current psychotropics carefully including drug interactions. Risk benefit ratio favors no change other than as noted in my dictated progress note. Diagnosis: Problems: (1) Anxiety disorder (2) Impulse control disorder (3) Major depressive disorder, recurrent episode (4) Panic disorder with agoraphobia and severe panic attacks (5) Obsessive compulsive disorder MELISSA BASHIR MD March 05, 2019 22:32
--- NOTE | 2019-03-05 23:21 | NUR ---
Nursing note: Assumed care of pt in her room where she had just gone after being in the day room watching a movie. She was lying in bed but awake. She showed no s/s or c/o anxiety at this time. She was compliant and pleasant. No c/o pain. A&OX4
[2019-03-06] MEDS: MAG HYDROX/AL HYDROX/SIMETH 30 ML ORAL.SUSP PO PRN (01:29)
[2019-03-06] MEDS: ALPRAZolam 0.5 MG TABLET PO PRN ×3 (01:29→22:07)
[2019-03-06 05:50] VITALS: BP 109/70
[2019-03-06] MEDS: POLYETHYLENE GLYCOL 3350 17 GM PACKET. PO PRN (06:19)
[2019-03-06] MEDS: QUEtiapine 25 MG TABLET. PO SCH (07:50)
[2019-03-06] MEDS: METOCLOPRAMIDE 5 MG TABLET PO SCH ×3 (07:50→17:16)
[2019-03-06] MEDS: GABAPENTIN 100 MG CAPSULE. PO SCH ×3 (07:52→20:45)
[2019-03-06] MEDS: POTASSIUM CHLORIDE 20 MEQ TABLET.ER. PO SCH (07:52)
[2019-03-06] MEDS: SUCRALFATE 1 GM TABLET. PO SCH ×2 (07:52→17:16)
[2019-03-06] MEDS: LURASIDONE 40 MG TABLET. PO SCH (07:53)
[2019-03-06] MEDS: PANTOPRAZOLE 40 MG TABLET. PO SCH (07:55)
--- NOTE | 2019-03-06 15:53 | NUR ---
patient asking for xanax at 1520 stating she is anxious. PRN xanax given by BERNA Price per order for anxiety, will continue to monitor.
--- NOTE | 2019-03-06 15:55 | NUR ---
Patient calm, sitting in day room during morning. Reported that she felt anxious in the afternoon and requested PRN xanax. Attended all meals, compliant with meds. Patient up ad zane with no assistive devices.
[2019-03-06 16:23] VITALS: BP 110/73
[2019-03-06] MEDS: TAMSULOSIN 0.4 MG CAP.ER.24H. PO SCH (20:40)
[2019-03-06] MEDS: MIRTAZAPINE 15 MG TABLET PO SCH (20:41)
--- NOTE | 2019-03-06 20:55 | NUR ---
Nursing note: Assumed care of pt in her room. She was lying down but awake. Pt was calm and compliant. She had no c/o pain or anxiety.
--- NOTE | 2019-03-06 21:49 | PN ---
DATE: 03/05/2019 PSYCHIATRIC PROGRESS NOTE This late entry 03/05/2019 covers elements not covered in my initial note. SUBJECTIVE: I met with the patient in the evening. I met with her at length in her room. She slept 7-1/2 hours previous night, remains somewhat anxious, received Xanax x 2 frequently at the nursing window, wanting something for anxiety, waiting for her medications. REVIEW OF SYSTEMS: No CV, , pulmonary, eye system symptoms on review. GI symptoms are better. MENTAL STATUS EXAM: Reasonably oriented. Speech has some latency, coherent. Abstraction fair, computation impaired, language function intact, attention span short. Mood and affect still obsessive, anxious, somewhat depressed, but less so than before. We addressed placement in an assisted living at length and she is not quite agreeable due to finances. LABORATORY DATA: Reviewed. IMPRESSION: Unchanged from initial note. PLAN: No change from initial note. MELISSA BASHIR MD DR: CARRILLO/praful JOB#: [id number] / [id number]
--- NOTE | 2019-03-06 22:10 | NUR ---
Nursing note: Pt requesting anxiety meds. Given PRN as per order.
--- NOTE | 2019-03-06 22:38 | PDOC ---
Exam Note: Edwin Note: Please also refer to the separate dictated note~for this date of service dictated separately.~Patient seen individually. Discussed the patient with Nursing staff reviewed the chart.~Reviewed interim history and current functioning. Reviewed vital signs,~Labs/ Radiology~and current medications noted below. Continue current treatment with the changes noted in the dictated addendum note Assessment: Vital Signs: Vital Signs Date Time Temp Pulse Resp B/P (MAP) Pulse Ox O2 Delivery O2 Flow Rate FiO2 03/06/19 16:23 98.1 94 16 110/73 (85) 98 03/06/19 05:50 Room Air I&O Intake and Output 03/06/19 06:59 Intake Total 720 ml Balance 720 ml Intake Oral 720 ml # Voids 1 Current Medications: Meds: Current Medications Lactated Ringer's 1,000 ml @ 1,000 mls/hr Q1H IV Last administered on 02/21/19 02:06; Start 02/20/19 at 23:00; Stop 02/20/19 at 23:59; Status DC Cephalexin HCl (Keflex) 500 mg 1X ONCE PO Last administered on 02/21/19at 02:07; Start 02/21/19 at 00:30; Stop 02/21/19 at 00:31; Status DC Acetaminophen (Tylenol) 650 mg PRN Q6HRS PRN PO PAIN / TEMP Last administered on 02/28/19 19:27; Start 02/21/19 at 06:00 Multi-Ingredient Ointment (Analgesic [place]) 1 will PRN QID PRN TP MUSCLE PAIN; Start 02/21/19 at 06:00 Al Hydroxide/Mg Hydroxide (Mylanta Plus Xs) 15 ml PRN AFTMEALHC PRN PO DYSPEPSIA Last administered on 03/06/19 01:29; Start 02/21/19 at 06:00 Magnesium Hydroxide (Milk Of Magnesia) 2,400 mg PRN QHS PRN PO CONSTIPATION; Start 02/21/19 at 06:00 Alprazolam (Xanax) 0.5 mg PRN Q6HRS PRN PO ANXIETY / AGITATION Last adminis tered on 03/06/19 22:07; Start 02/21/19 at 06:15 Fluvoxamine Maleate (Luvox) 50 mg DAILY07 PO Last administered on 02/21/19 09 :28; Start 02/21/19 at 07:00; Stop 02/21/19 at 09:32; Status DC Fluvoxamine Maleate (Luvox) 100 mg QHS PO Last administered on 02/26/19 19:59; Start 02/21/19 at 21:00; Stop 02/27/19 at 17:18; Status DC Mirtazapine (Remeron) 15 mg QHS PO Last administered on 03/06/19 20:41; Start 02/21/19 at 21:00 Quetiapine Fumarate (SEROquel) 37.5 mg TID@0700,1700,2100 PO Last administered on 02/21/19 09:27; Start 02/21/19 at 07:00; Stop 02/21/19 at 09:32; Status DC Gabapentin (Neurontin) 100 mg DAILY PO Last administered on 03/06/19 07:52; Start 02/21/19 at 09:00 Gabapentin (Neurontin) 200 mg BID@1300,2100 PO Last administered on 03/06/19 20:45; Start 02/21/19 at 13:00 Potassium Chloride (Klor-Con) 20 meq DAILY07 PO Last administered on 02/21/19 09:27; Start 02/21/19 at 07:00; Stop 02/21/19 at 09:32; Status DC Tamsulosin HCl (Flomax) 0.4 mg QHS PO Last administered on 03/06/19 20:40; Start 02/21/19 at 21:00 Metoclopramide HCl (Reglan) 5 mg TIDAC PO Last administered on 03/06/19 17:16; Start 02/21/19 at 07:30 Pantoprazole Sodium (Protonix) 40 mg DAILYAC PO Last administered on 03/06/19 07:55; Start 02/21/19 at 07:30 Sucralfate (Carafate) 1 gm BID@0700,1700 PO Last administered on 02/21/19 09:27; Start 02/21/19 at 07:00; Stop 02/21/19 at 09:32; Status DC Fluvoxamine Maleate (Luvox) 50 mg DAILY PO Last administered on 03/06/19 07:50; Start 02/22/19 at 09:00 Potassium Chloride (Klor-Con) 20 meq DAILY PO Last administered on 03/06/19 07:52; Start 02/22/19 at 09:00 Quetiapine Fumarate (SEROquel) 37.5 mg TID PO Last administered on 02/22/19 19:33; Start 02/21/19 at 14:00; Stop 02/22/19 at 21:01; Status DC Sucralfate (Carafate) 1 gm BIDWMEALS PO Last administered on 03/06/19 17:16; Start 02/21/19 at 17:00 Polyethylene Glycol (miraLAX) 17 gm PRN DAILY PRN PO CONSTIPATION; Start 02/21/19 at 10:15; Stop 02/21/19 at 10:15; Status DC Polyethylene Glycol (miraLAX) 17 gm PRN DAILY PRN PO CONSTIPATION Last administered on 03/06/19 06:19; Start 02/21/19 at 10:05 Lurasidone HCl (Latuda) 20 mg DAILYWBKFT PO Last administered on 02/25/19 08:48; Start 02/23/19 at 08:00; Stop 02/25/19 at 09:01; Status DC Lurasidone HCl (Latuda) 40 mg DAILYWBKFT PO Last administered on 02/28/19 08:42; Start 02/26/19 at 08:00; Stop 02/28/19 at 09:02; Status DC Lurasidone HCl (Latuda) 60 mg DAILYWBKFT PO Last administered on 03/06/19 07:53; Start 03/01/19 at 08:00 Quetiapine Fumarate (SEROquel) 37.5 mg BID PO Last administered on 03/01/19 19:46; Start 02/23/19 at 09:00; Stop 03/01/19 at 21:01; Status DC Quetiapine Fumarate (SEROquel) 37.5 mg DAILY PO Last administered on 03/06/19 07:50; Start 03/02/19 at 09:00; Stop 03/09/19 at 09:01 Metoclopramide HCl (Reglan) 5 mg STK-MED ONCE .ROUTE ; Start 02/21/19 at 09:00; Stop 02/23/19 at 18:20; Status DC Metoclopramide HCl (Reglan) 5 mg STK-MED ONCE .ROUTE ; Start 02/21/19 at 09:00; Stop 02/23/19 at 18:20; Status DC Metoclopramide HCl (Reglan) 5 mg STK-MED ONCE .ROUTE ; Start 02/21/19 at 09:00; Stop 02/23/19 at 18:20; Status DC Quetiapine Fumarate (SEROquel) 37.5 mg STK-MED ONCE .ROUTE ; Start 02/21/19 at 09:00; Stop 02/23/19 at 18:20; Status DC Sucralfate (Carafate) 1 gm STK-MED ONCE PO ; Start 02/21/19 at 09:00; Stop at 18:20; Status DC Metoclopramide HCl (Reglan) 5 mg STK-MED ONCE .ROUTE ; Start 02/22/19 at 09:00; Stop 02/23/19 at 18:20; Status DC Metoclopramide HCl (Reglan) 5 mg STK-MED ONCE .ROUTE ; Start 02/22/19 at 09:00; Stop 02/23/19 at 18:20; Status DC Metoclopramide HCl (Reglan) 5 mg STK-MED ONCE .ROUTE ; Start 02/22/19 at 09:00; Stop 02/23/19 at 18:20; Status DC Metoclopramide HCl (Reglan) 5 mg STK-MED ONCE .ROUTE ; Start 02/23/19 at 09:00; Stop 02/23/19 at 18:20; Status DC Metoclopramide HCl (Reglan) 5 mg STK-MED ONCE .ROUTE ; Start 02/23/19 at 09:00; Stop 02/23/19 at 18:20; Status DC Metoclopramide HCl (Reglan) 5 mg STK-MED ONCE .ROUTE ; Start 02/23/19 at 09:00; Stop 02/23/19 at 18:20; Status DC Fluvoxamine Maleate (Luvox) 100 mg QHS PO Last administered on 03/06/19at 20:40; Start 02/27/19 at 21:00 Fluvoxamine Maleate (Luvox) 25 mg HS PO Last administered on 03/06/19at 20:40; Start 02/27/19 at 21:00 Active Scripts Active Reported Fluvoxamine Maleate 100 Mg Tablet 100 Mg PO QHS Flomax (Tamsulosin Hcl) 0.4 Mg Cap.er.24h 0.4 Mg PO QHS Maalox Advanced Suspension (Mag Hydrox/Aluminum Hyd/Simeth) 355 Ml Oral.susp 15 Ml PO PRN AFTMEALHC PRN Fluvoxamine Maleate 100 Mg Tablet 50 Mg PO DAILY07 Analgesic [place] (Methyl Salicylate/Menthol) 28 Gm Oint...g. 1 Will TP PRN Q6HRS PRN Milk Of Magnesia (Magnesium Hydroxide) 400 Mg/5 Ml Oral.susp 400 Mg PO PRN QHS P RN Acetaminophen 500 Mg Tablet 650 Mg PO PRN Q6HRS PRN Gabapentin (Gabapentin) 100 Mg Capsule 200 Mg PO [id number] Gabapentin (Gabapentin) 100 Mg Capsule 100 Mg PO DAILY Reglan (Metoclopramide Hcl) 10 Mg Tablet 5 Mg PO TIDAC take with meals at 7am, 1pm, 5pm Pantoprazole Sodium 40 Mg Tablet.dr 40 Mg PO DAILY07 Seroquel (Quetiapine Fumarate) 25 Mg Tablet 37.5 Mg PO TID@0700,1700,2100 Miralax (Polyethylene Glycol 3350) 17 Gm Powd.pack 17 Gm PO DAILY07 Klor-Con M20 (Potassium Chloride) 20 Meq Tab.er.prt 20 Meq PO DAILY07 Sucralfate 1 Gm Tablet 1 Gm PO BID@0700,1700 Mirtazapine 15 Mg Tablet 15 Mg PO QHS Reglan (Metoclopramide Hcl) 10 Mg Tablet 5 Mg PO HS Alprazolam 0.5 Mg Tablet 0.5 Mg PO PRN Q6HRS PRN I have reviewed the current psychotropics carefully including drug interactions. Risk benefit ratio favors no change other than as noted in my dictated progress note. Diagnosis: Problems: (1) Anxiety disorder (2) Impulse control disorder (3) Major depressive disorder, recurrent episode (4) Panic disorder with agoraphobia and severe panic attacks (5) Obsessive compulsive disorder MELISSA BASHIR MD March 06, 2019 22:38
[2019-03-07 05:50] VITALS: BP 96/61
[2019-03-07] MEDS: ALPRAZolam 0.5 MG TABLET PO PRN ×2 (07:38→15:12)
[2019-03-07] MEDS: PANTOPRAZOLE 40 MG TABLET. PO SCH (07:39)
[2019-03-07] MEDS: METOCLOPRAMIDE 5 MG TABLET PO SCH ×3 (07:39→17:04)
[2019-03-07] MEDS: POTASSIUM CHLORIDE 20 MEQ TABLET.ER. PO SCH (07:39)
[2019-03-07] MEDS: QUEtiapine 25 MG TABLET. PO SCH (07:39)
[2019-03-07] MEDS: SUCRALFATE 1 GM TABLET. PO SCH ×2 (07:39→17:03)
[2019-03-07] MEDS: LURASIDONE 40 MG TABLET. PO SCH (07:40)
[2019-03-07] MEDS: GABAPENTIN 100 MG CAPSULE. PO SCH ×3 (07:41→20:50)
--- NOTE | 2019-03-07 07:46 | NUR ---
Patient came to nursing station before breakfast stating that she was anxious. Patient had visible hand tremor and solemn expression. PRN xanax provided per order for anxiety with scheduled morning medications. Will continue to monitor patients anxiety level.
--- NOTE | 2019-03-07 09:42 | NUR ---
WEEKLY ACTIVITY THERAPY NOTE Date of Admission: 02/21/2019 Date of AT Assessment: 02/24/2019 Goal aimed:to increase engagement and socialization Initial Goal: Pt. will participate in at least five Activity Therapy groups per week. Weekly progress towards goal: achieved Group participation level: moderate to full Weekly highlights:smiling and social with peers on Monday afternoon group Behaviors observed: flat affect, calm, appears tired, stomach issues continues Plan: no change to goal Beneficial adaptations: invite to groups, small/women groups perhaps
--- NOTE | 2019-03-07 10:11 | NUR ---
WEEKLY NOTE: Pt is moderately participating in group. Pt has been active in groups more and walking around the halls. Pt still has somatic complaints and getting Xanax for anxiety. Pt will return home and will need as many supports to help decrease pt behaviors. ELOS for either Monday or Monday.
--- NOTE | 2019-03-07 15:30 | NUR ---
Patient and family met with social science professor after lunch. Patient asked social science professor for anti anxiety pill. PRN xanax provided per order for anxiety at 1500. Patient then went to rest in her room.
[2019-03-07 15:49] VITALS: BP 119/74
[2019-03-07] MEDS: MIRTAZAPINE 15 MG TABLET PO SCH (20:49)
[2019-03-07] MEDS: TAMSULOSIN 0.4 MG CAP.ER.24H. PO SCH (20:50)
--- NOTE | 2019-03-07 22:31 | PDOC ---
Exam Note: Edwin Note: Please also refer to the separate dictated note~for this date of service dictated separately.~Patient seen individually. Discussed the patient with Nursing staff reviewed the chart.~Reviewed interim history and current functioning. Reviewed vital signs,~Labs/ Radiology~and current medications noted below. Continue current treatment with the changes noted in the dictated addendum note Assessment: Vital Signs: Vital Signs Date Time Temp Pulse Resp B/P (MAP) Pulse Ox O2 Delivery O2 Flow Rate FiO2 03/07/19 15:49 98.1 118 22 119/74 (89) 93 Room Air I&O Intake and Output 03/07/19 07:00 Intake Total 1200 ml Balance 1200 ml Intake Oral 1200 ml Current Medications: Meds: Current Medications Lactated Ringer's 1,000 ml @ 1,000 mls/hr Q1H IV Last administered on 02/21/19 02:06; Start 02/20/19 at 23:00; Stop 02/20/19 at 23:59; Status DC Cephalexin HCl (Keflex) 500 mg 1X ONCE PO Last administered on 02/21/19at 02: 07; Start 02/21/19 at 00:30; Stop 02/21/19 at 00:31; Status DC Acetaminophen (Tylenol) 650 mg PRN Q6HRS PRN PO PAIN / TEMP Last administered on 02/28/19 19:27; Start 02/21/19 at 06:00 Multi-Ingredient Ointment (Analgesic [place]) 1 will PRN QID PRN TP MUSCLE PAIN; Start 02/21/19 at 06:00 Al Hydroxide/Mg Hydroxide (Mylanta Plus Xs) 15 ml PRN AFTMEALHC PRN PO DYSPEPSIA Last administered on 03/06/19 01:29; Start 02/21/19 at 06:00 Magnesium Hydroxide (Milk Of Magnesia) 2,400 mg PRN QHS PRN PO CONSTIPATION; Start 02/21/19 at 06:00 Alprazolam (Xanax) 0.5 mg PRN Q6HRS PRN PO ANXIETY / AGITATION Last administered on 03/07/19 15:12; Start 02/21/19 at 06:15 Fluvoxamine Maleate (Luvox) 50 mg DAILY07 PO Last administered on 02/21/19at 09:28; Start 02/21/19 at 07:00; Stop 02/21/19 at 09:32; Status DC Fluvoxamine Maleate (Luvox) 100 mg QHS PO Last administered on 02/26/19 19:59; Start 02/21/19 at 21:00; Stop 02/27/19 at 17:18; Status DC Mirtazapine (Remeron) 15 mg QHS PO Last administered on 03/07/19 20:49; Start 02/21/19 at 21:00 Quetiapine Fumarate (SEROquel) 37.5 mg TID@0700,1700,2100 PO Last administered on 02/21/19 09:27; Start 02/21/19 at 07:00; Stop 02/21/19 at 09:32; Status DC Gabapentin (Neurontin) 100 mg DAILY PO Last administered on 03/07/19 07:41; Start 02/21/19 at 09:00 Gabapentin (Neurontin) 200 mg BID@1300,2100 PO Last administered on 03/07/19 20:50; Start 02/21/19 at 13:00 Potassium Chloride (Klor-Con) 20 meq DAILY07 PO Last administered on 02/21/19 09:27; Start 02/21/19 at 07:00; Stop 02/21/19 at 09:32; Status DC Tamsulosin HCl (Flomax) 0.4 mg QHS PO Last administered on 03/07/19 20:50; Start 02/21/19 at 21:00 Metoclopramide HCl (Reglan) 5 mg TIDAC PO Last administered on 03/07/19 17:04; Start 02/21/19 at 07:30 Pantoprazole Sodium (Protonix) 40 mg DAILYAC PO Last administered on 03/07/19 07:39; Start 02/21/19 at 07:30 Sucralfate (Carafate) 1 gm BID@0700,1700 PO Last administered on 02/21/19 09:27; Start 02/21/19 at 07:00; Stop 02/21/19 at 09:32; Status DC Fluvoxamine Maleate (Luvox) 50 mg DAILY PO Last administered on 03/07/19 07:39; Start 02/22/19 at 09:00 Potassium Chloride (Klor-Con) 20 meq DAILY PO Last administered on 03/07/19 07:39; Start 02/22/19 at 09:00 Quetiapine Fumarate (SEROquel) 37.5 mg TID PO Last administered on 02/22/19 19:33; Start 02/21/19 at 14:00; Stop 02/22/19 at 21:01; Status DC Sucralfate (Carafate) 1 gm BIDWMEALS PO Last administered on 03/07/19 17:03; Start 02/21/19 at 17:00 Polyethylene Glycol (miraLAX) 17 gm PRN DAILY PRN PO CONSTIPATION; Start 02/21/19 at 10:15; Stop 02/21/19 at 10:15; Status DC Polyethylene Glycol (miraLAX) 17 gm PRN DAILY PRN PO CONSTIPATION Last administered on 03/06/19 06:19; Start 02/21/19 at 10:05 Lurasidone HCl (Latuda) 20 mg DAILYWBKFT PO Last administered on 02/25/19at 08:48; Start 02/23/19 at 08:00; Stop 02/25/19 at 09:01; Status DC Lurasidone HCl (Latuda) 40 mg DAILYWBKFT PO Last administered on 02/28/19 08:42; Start 02/26/19 at 08:00; Stop 02/28/19 at 09:02; Status DC Lurasidone HCl (Latuda) 60 mg DAILYWBKFT PO Last administered on 03/07/19 07:40; Start 03/01/19 at 08:00 Quetiapine Fumarate (SEROquel) 37.5 mg BID PO Last administered on 03/01/19 19:46; Start 02/23/19 at 09:00; Stop 03/01/19 at 21:01; Status DC Quetiapine Fumarate (SEROquel) 37.5 mg DAILY PO Last administered on 03/07/19 07:39; Start 03/02/19 at 09:00; Stop 03/09/19 at 09:01 Metoclopramide HCl (Reglan) 5 mg STK-MED ONCE .ROUTE ; Start 02/21/19 at 09:00; Stop 02/23/19 at 18:20; Status DC Metoclopramide HCl (Reglan) 5 mg STK-MED ONCE .ROUTE ; Start 02/21/19 at 09:00; Stop 02/23/19 at 18:20; Status DC Metoclopramide HCl (Reglan) 5 mg STK-MED ONCE .ROUTE ; Start 02/21/19 at 09:00; Stop 02/23/19 at 18:20; Status DC Quetiapine Fumarate (SEROquel) 37.5 mg STK-MED ONCE .ROUTE ; Start 02/21/19 at 09:00; Stop 02/23/19 at 18:20; Status DC Sucralfate (Carafate) 1 gm STK-MED ONCE PO ; Start 02/21/19 at 09:00; Stop 02/23/19 at 18:20; Status DC Metoclopramide HCl (Reglan) 5 mg STK-MED ONCE .ROUTE ; Start 02/22/19 at 09:00; Stop 02/23/19 at 18:20; Status DC Metoclopramide HCl (Reglan) 5 mg STK-MED ONCE .ROUTE ; Start 02/22/19 at 09:00; Stop 02/23/19 at 18:20; Status DC Metoclopramide HCl (Reglan) 5 mg STK-MED ONCE .ROUTE ; Start 02/22/19 at 09:00; Stop 02/23/19 at 18:20; Status DC Metoclopramide HCl (Reglan) 5 mg STK-MED ONCE .ROUTE ; Start 02/23/19 at 09:00; Stop 02/23/19 at 18:20; Status DC Metoclopramide HCl (Reglan) 5 mg STK-MED ONCE .ROUTE ; Start 02/23/19 at 09:00; Stop 02/23/19 at 18:20; Status DC Metoclopramide HCl (Reglan) 5 mg STK-MED ONCE .ROUTE ; Start 02/23/19 at 09:00; Stop 02/23/19 at 18:20; Status DC Fluvoxamine Maleate (Luvox) 100 mg QHS PO Last administered on 03/07/19at 20:49; Start 02/27/19 at 21:00 Fluvoxamine Maleate (Luvox) 25 mg HS PO Last administered on 03/07/19at 20:49; Start 5/1/19 at 21:00 Active Scripts Active Reported Fluvoxamine Maleate 100 Mg Tablet 100 Mg PO QHS Flomax (Tamsulosin Hcl) 0.4 Mg Cap.er.24h 0.4 Mg PO QHS Maalox Advanced Suspension (Mag Hydrox/Aluminum Hyd/Simeth) 355 Ml Oral.susp 15 Ml PO PRN AFTMEALHC PRN Fluvoxamine Maleate 100 Mg Tablet 50 Mg PO DAILY07 Analgesic [place] (Methyl Salicylate/Menthol) 28 Gm Oint...g. 1 Will TP PRN Q6HRS PRN Milk Of Magnesia (Magnesium Hydroxide) 400 Mg/5 Ml Oral.susp 400 Mg PO PRN QHS PRN Acetaminophen 500 Mg Tablet 650 Mg PO PRN Q6HRS PRN Gabapentin (Gabapentin) 100 Mg Capsule 200 Mg PO [id number] Gabapentin (Gabapentin) 100 Mg Capsule 100 Mg PO DAILY Reglan (Metoclopramide Hcl) 10 Mg Tablet 5 Mg PO TIDAC take with meals at 7am, 1pm, 5pm Pantoprazole Sodium 40 Mg Tablet.dr 40 Mg PO DAILY07 Seroquel (Quetiapine Fumarate) 25 Mg Tablet 37.5 Mg PO TID@0700,1700,2100 Miralax (Polyethylene Glycol 3350) 17 Gm Powd.pack 17 Gm PO DAILY07 Klor-Con M20 (Potassium Chloride) 20 Meq Tab.er.prt 20 Meq PO DAILY07 Sucralfate 1 Gm Tablet 1 Gm PO BID@0700,1700 Mirtazapine 15 Mg Tablet 15 Mg PO QHS Reglan (Metoclopramide Hcl) 10 Mg Tablet 5 Mg PO HS Alprazolam 0.5 Mg Tablet 0.5 Mg PO PRN Q6HRS PRN I have reviewed the current psychotropics carefully including drug interactions. Risk benefit ratio favors no change other than as noted in my dictated progress note. Diagnosis: Problems: (1) Anxiety disorder (2) Impulse control disorder (3) Major depressive disorder, recurrent episode (4) Panic disorder with agoraphobia and severe panic attacks (5) Obsessive compulsive disorder MELISSA BASHIR MD March 07, 2019 22:30
--- NOTE | 2019-03-08 04:56 | CONS ---
DATE OF CONSULTATION: 03/03/2019 NEUROLOGIC CONSULTATION REFERRING PHYSICIAN: Catracho Peterson MD REASON FOR CONSULTATION: Tremor. HISTORY OF PRESENT ILLNESS: This is a 73-year-old female who was admitted on 02/21/2019, on account of increasing symptoms of depression, anxiety, and obsessive-compulsive disorder. A neuro consult was requested because the patient has had intermittent tremor of the upper extremities and sometimes in the lower extremities. Currently, the patient denies headaches, visual disturbances, nausea, vomiting, chest pain, shortness of breath, palpitation, dysarthria, dysphagia, weakness or paresthesia. The patient has multiple inpatient and outpatient psychiatric care with recent failure of her symptoms. She denies suicidal ideations or any suicidal attempt in the past; however, she continues to complain of disturbed sleep and poor appetite. She reported some weight loss over the last few months. PAST MEDICAL HISTORY: Significant for recurrent urinary tract infections, breast cancer, required lumpectomy, chronic constipation. PAST PSYCHIATRIC PROBLEMS: Include anxiety disorders, major depressions, obsessive-compulsive disorders. PAST SURGICAL HISTORY: Significant for right hip arthroplasty and left lumpectomy secondary to breast cancer. FAMILY HISTORY: Unremarkable. SOCIAL HISTORY: The patient lives with significant other. She has 2 grandchildren and one son. She denies smoking, alcohol drinking, or illicit drug use. CURRENT HOME MEDICATIONS: Flomax, Tylenol, fluvoxamine, quetiapine, alprazolam, potassium, milk of magnesia, sucralfate, Protonix, metoclopramide. ALLERGIES: No known drug allergies. REVIEW OF SYSTEMS: A 10-point review of systems was performed as mentioned above in history of present illness. PHYSICAL EXAMINATION: GENERAL: Well-developed, well-nourished female, not in acute distress. VITAL SIGNS: She weighs 54.5 kilograms on the day of admission. Blood pressure 120/80, respiratory rate 20, pulse is 84 and regular, temperature is 98.2, oxygen saturation 98% on room air. HEENT: Normocephalic, atraumatic, otherwise unremarkable. NECK: Supple, negative for carotid bruit, lymphadenopathy or thyromegaly. LUNGS: Clear to A and P. CARDIOVASCULAR: Regular rate and rhythm, normal S1, S2. There is no S3, S4 or murmur. ABDOMEN: Soft. Bowel sounds positive. EXTREMITIES: Negative for cyanosis, clubbing or pitting edema. NEUROLOGICAL EXAMINATION: MENTAL STATUS: The patient is alert and oriented x 3. The speech is fluent. There is no language dysfunction. Memory, the patient recalls 2/3 immediately and after 1 and 3 minutes. Judgment and abstract thinking are fair. The patient denies hallucination or delusion. CRANIAL NERVES: Visual lindsey are full. The pupils are reactive to light and accommodation. The extraocular movements are intact. There is no nystagmus. There is no facial motor or sensory deficit. Hearing is intact bilaterally. The palate is elevated symmetrically. Sternocleidomastoid muscles are powerful bilaterally. The patient shrugs her shoulders symmetrically, protrudes her tongue in the midline without fasciculation or atrophy. MOTOR EXAMINATION: Brief motor examination revealed no focal muscle bulk was seen. The tone was normal. The strength is 4/5 throughout. The patient had intermittent resting and sometimes postural and kinetic tremors of the upper extremities. Sensory examination revealed normal pinprick and light touch senses throughout. Deep tendon reflexes were symmetric and active with absent Achilles responses. Gait and coordination are normal. LABORATORY DATA: From 03/02/2019 revealed white blood cells of 2900, hemoglobin 12.1, hematocrit 36.4, platelet count 214,000. Chemistry from 03/02/2019 revealed sodium of 144, potassium 3.9, chloride 105, CO2 of 30, BUN 16, creatinine 0.3, glucose 90, calcium is 8.9. Vitamin D is normal at 57. T4 and T3 are normal. Urinalysis from 02/20/2019 revealed large urinary leukocyte esterase with white blood cells of 5-10. Urine drug screen is negative. ASSESSMENT: 1. Intermittent tremor of the upper extremity, probably due to underlying anxiety disorder. 2. Multiple medical problems include gastroparesis, breast cancer, required lumpectomy, and recurrent urinary tract infections. 3. Multiple psychiatric problems include major depressions, panic attacks, anxiety disorders, obsessive-compulsive disorders and possible early dementia. RECOMMENDATIONS: We will continue with current medical and psychiatric care. M Tom KELLER MD DR: TREVOR/praful JOB#: [id number] / [id number]
[2019-03-08 06:16] VITALS: BP 104/66
[2019-03-08] MEDS: ALPRAZolam 0.5 MG TABLET PO PRN ×2 (06:17→19:28)
[2019-03-08] MEDS: SUCRALFATE 1 GM TABLET. PO SCH ×2 (09:32→16:48)
[2019-03-08] MEDS: METOCLOPRAMIDE 5 MG TABLET PO SCH ×3 (09:32→16:48)
[2019-03-08] MEDS: GABAPENTIN 100 MG CAPSULE. PO SCH ×3 (09:33→19:29)
[2019-03-08] MEDS: PANTOPRAZOLE 40 MG TABLET. PO SCH (09:33)
[2019-03-08] MEDS: POTASSIUM CHLORIDE 20 MEQ TABLET.ER. PO SCH (09:33)
[2019-03-08] MEDS: QUEtiapine 25 MG TABLET. PO SCH (09:35)
[2019-03-08] MEDS: LURASIDONE 40 MG TABLET. PO SCH (09:37)
[2019-03-08 16:47] VITALS: BP 139/75
--- NOTE | 2019-03-08 18:35 | NUR ---
Patient observed out of her room for most of the day, calm/cooperative, received a visit today at lunch, med compliant, patient will be discharged tomorrow back home, denies pain
[2019-03-08] MEDS: TAMSULOSIN 0.4 MG CAP.ER.24H. PO SCH (19:29)
[2019-03-08] MEDS: MIRTAZAPINE 15 MG TABLET PO SCH (19:29)
--- NOTE | 2019-03-08 20:17 | PN ---
DATE: 03/06/2019 PSYCHIATRIC PROGRESS NOTE This late entry 03/06/2019 covers elements not covered in my initial note. SUBJECTIVE: I met with the patient in the evening of 03/06/2019. The patient slept 8 hours previous night. requirements analyst, she was less anxious, but by the afternoon, she was getting more anxious and we processed at some length. REVIEW OF SYSTEMS: Vague GI symptoms. No CV, , pulmonary, eye system symptoms on review. MENTAL STATUS EXAM: The patient is reasonably oriented. Speech is coherent, has some latency, low in volume. Abstraction fair, computation impaired, language function intact, attention span short. Mood and affect somewhat withdrawn. LABORATORY DATA: Reviewed. IMPRESSION: Unchanged from initial note. PLAN: No change from initial note, but we may need to increase Luvox further and Latuda is at 60 mg a day, may need to increase this as well in due course. MELISSA BASHIR MD DR: CARRILLO/praful JOB#: [id number] / [id number]
--- NOTE | 2019-03-08 22:06 | PN ---
DATE: 03/07/2019 PSYCHIATRIC PROGRESS NOTE This late entry 03/07/2019 covers elements not covered in my initial note. SUBJECTIVE: I met with the patient in the evening in her room at length. Staffed at a treatment team meeting with the entire team in the morning and in the afternoon as the social service staff was meeting with Sumit, her significant other and her son, I joined in this conference as well to discuss aftercare plans including psychotherapy with Dr. August Roman or the other therapist in her office, or an alternate therapist including visiting family schedule twice a week and other activities including the [facility] in [place]. The patient has been attending groups, somewhat calmer, still has some GI system symptoms part of her somatic symptoms, anxiety and obsessiveness. REVIEW OF SYSTEMS: No CV, , pulmonary, ENT system symptoms on review. MENTAL STATUS EXAM: Reasonably oriented. Speech has some latency, coherent. Abstraction fair, computation impaired, language function intact, attention span short. She is still somewhat obsessive. The patient received Xanax p.r.n. at 745 and 1500, receive some Ativan. IMPRESSION: Unchanged from initial note. PLAN: No change from initial note. Maintain Seroquel, Luvox, Latuda and Remeron together with Xanax p.r.n. MELISSA BASHIR MD DR: CARRILLO/praful JOB#: [id number] / [id number]
--- NOTE | 2019-03-08 22:31 | PDOC ---
Exam Note: Edwin Note: Please also refer to the separate dictated note~for this date of service dictated separately.~Patient seen individually. Discussed the patient with Nursing staff reviewed the chart.~Reviewed interim history and current functioning. Reviewed vital signs,~Labs/ Radiology~and current medications noted below. Continue current treatment with the changes noted in the dictated addendum note Assessment: Vital Signs: Vital Signs Date Time Temp Pulse Resp B/P (MAP) Pulse Ox O2 Delivery O2 Flow Rate FiO2 03/08/19 16:47 98.0 94 16 139/75 (96) 98 03/07/19 15:49 Room Air I&O Intake and Output 03/08/19 07:00 Intake Total 960 ml Balance 960 ml Intake Oral 960 ml Current Medications: Meds: Current Medications Lactated Ringer's 1,000 ml @ 1,000 mls/hr Q1H IV Last administered on 9at 02:06; Start 02/20/19 at 23:00; Stop 02/20/19 at 23:59; Status DC Cephalexin HCl (Keflex) 500 mg 1X ONCE PO Last administered on 02/21/19at 02:07; Start 02/21/19 at 00:30; Stop 02/21/19 at 00:31; Status DC Acetaminophen (Tylenol) 650 mg PRN Q6HRS PRN PO PAIN / TEMP Last administered on 02/28/19at 19:27; Start 02/21/19 at 06:00 Multi-Ingredient Ointment (Analgesic [place]) 1 will PRN QID PRN TP MUSCLE PAIN; Start 02/21/19 at 06:00 Al Hydroxide/Mg Hydroxide (Mylanta Plus Xs) 15 ml PRN AFTMEALHC PRN PO DYS PEPSIA Last administered on 03/06/19 01:29; Start 02/21/19 at 06:00 Magnesium Hydroxide (Milk Of Magnesia) 2,400 mg PRN QHS PRN PO CONSTIPATION; Start 02/21/19 at 06:00 Alprazolam (Xanax) 0.5 mg PRN Q6HRS PRN PO ANXIETY / AGITATION Last administered on 03/08/19at 19:28; Start 02/21/19 at 06:15 Fluvoxamine Maleate (Luvox) 50 mg DAILY07 PO Last administered on 02/21/19 09:28; Start 02/21/19 at 07:00; Stop 02/21/19 at 09:32; Status DC Fluvoxamine Maleate (Luvox) 100 mg QHS PO Last administered on 02/26/19 19:59; Start 02/21/19 at 21:00; Stop 02/27/19 at 17:18; Status DC Mirtazapine (Remeron) 15 mg QHS PO Last administered on 03/08/19 19:29; Start 02/21/19 at 21:00 Quetiapine Fumarate (SEROquel) 37.5 mg TID@0700,1700,2100 PO Last administered on 02/21/19 09:27; Start 02/21/19 at 07:00; Stop 02/21/19 at 09:32; Status DC Gabapentin (Neurontin) 100 mg DAILY PO Last administered on 03/08/19 09:33; Start 02/21/19 at 09:00 Gabapentin (Neurontin) 200 mg BID@1300,2100 PO Last administered on 03/08/19 19:29; Start 02/21/19 at 13:00 Potassium Chloride (Klor-Con) 20 meq DAILY07 PO Last administered on 02/21/19 09:27; Start 02/21/19 at 07:00; Stop 02/21/19 at 09:32; Status DC Tamsulosin HCl (Flomax) 0.4 mg QHS PO Last administered on 03/08/19 19:29; Start 02/21/19 at 21:00 Metoclopramide HCl (Reglan) 5 mg TIDAC PO Last administered on 03/08/19 16:48; Start 02/21/19 at 07:30 Pantoprazole Sodium (Protonix) 40 mg DAILYAC PO Last administered on 03/08/19 09:33; Start 02/21/19 at 07:30 Sucralfate (Carafate) 1 gm BID@0700,1700 PO Last administered on 02/21/19 09:27; Start 02/21/19 at 07:00; Stop 02/21/19 at 09:32; Status DC Fluvoxamine Maleate (Luvox) 50 mg DAILY PO Last administered on 03/08/19 09:33; Start 02/22/19 at 09:00 Potassium Chloride (Klor-Con) 20 meq DAILY PO Last administered on 03/08/19 09:33; Start 02/22/19 at 09:00 Quetiapine Fumarate (SEROquel) 37.5 mg TID PO Last administered on 02/22/19 19:33; Start 02/21/19 at 14:00; Stop 02/22/19 at 21:01; Status DC Sucralfate (Carafate) 1 gm BIDWMEALS PO Last administered on 03/08/19 16:48; Start 02/21/19 at 17:00 Polyethylene Glycol (miraLAX) 17 gm PRN DAILY PRN PO CONSTIPATION; Start 02/21/19 at 10:15; Stop 02/21/19 at 10:15; Status DC Polyethylene Glycol (miraLAX) 17 gm PRN DAILY PRN PO CONSTIPATION Last administered on 03/06/19 06:19; Start 02/21/19 at 10:05 Lurasidone HCl (Latuda) 20 mg DAILYWBKFT PO Last administered on 02/25/19 08:48; Start 02/23/19 at 08:00; Stop 02/25/19 at 09:01; Status DC Lurasidone HCl (Latuda) 40 mg DAILYWBKFT PO Last administered on 02/28/19 08:42; Start 02/26/19 at 08:00; Stop 02/28/19 at 09:02; Status DC Lurasidone HCl (Latuda) 60 mg DAILYWBKFT PO Last administered on 03/08/19 09:37; Start 03/01/19 at 08:00 Quetiapine Fumarate (SEROquel) 37.5 mg BID PO Last administered on 03/01/19 19:46; Start 02/23/19 at 09:00; Stop 03/01/19 at 21:01; Status DC Quetiapine Fumarate (SEROquel) 37.5 mg DAILY PO Last administered on 03/08/19 09:35; Start 03/02/19 at 09:00; Stop 03/09/19 at 09:01 Metoclopramide HCl (Reglan) 5 mg STK-MED ONCE .ROUTE ; Start 02/21/19 at 09:00; Stop 02/23/19 at 18:20; Status DC Metoclopramide HCl (Reglan) 5 mg STK-MED ONCE .ROUTE ; Start 02/21/19 at 09:00; Stop 02/23/19 at 18:20; Status DC Metoclopramide HCl (Reglan) 5 mg STK-MED ONCE .ROUTE ; Start 02/21/19 at 09:00; Stop 02/23/19 at 18:20; Status DC Quetiapine Fumarate (SEROquel) 37.5 mg STK-MED ONCE .ROUTE ; Start 02/21/19 at 09:00; Stop 02/23/19 at 18:20; Status DC Sucralfate (Carafate) 1 gm STK-MED ONCE PO ; Start 02/21/19 at 09:00; Stop 02/23/19 at 18:20; Status DC Metoclopramide HCl (Reglan) 5 mg STK-MED ONCE .ROUTE ; Start 02/22/19 at 09:00; Stop 02/23/19 at 18:20; Status DC Metoclopramide HCl (Reglan) 5 mg STK-MED ONCE .ROUTE ; Start 02/22/19 at 09:00; Stop 02/23/19 at 18:20; Status DC Metoclopramide HCl (Reglan) 5 mg STK-MED ONCE .ROUTE ; Start 02/22/19 at 09:00; Stop 02/23/19 at 18:20; Status DC Metoclopramide HCl (Reglan) 5 mg STK-MED ONCE .ROUTE ; Start 02/23/19 at 09:00; Stop 02/23/19 at 18:20; Status DC Metoclopramide HCl (Reglan) 5 mg STK-MED ONCE .ROUTE ; Start 02/23/19 at 09:00; Stop 02/23/19 at 18:20; Status DC Metoclopramide HCl (Reglan) 5 mg STK-MED ONCE .ROUTE ; Start 02/23/19 at 09:00; Stop 02/23/19 at 18:20; Status DC Fluvoxamine Maleate (Luvox) 100 mg QHS PO Last administered on 03/08/19at 19:28; Start 02/27/19 at 21:00 Fluvoxamine Maleate (Luvox) 25 mg HS PO Last administered on 03/08/19at 19:28; Start 02/27/19 at 21:00 Active Scripts Active Reported Fluvoxamine Maleate 100 Mg Tablet 100 Mg PO QHS Flomax (Tamsulosin Hcl) 0.4 Mg Cap.er.24h 0.4 Mg PO QHS Maalox Advanced Suspension (Mag Hydrox/Aluminum Hyd/Simeth) 355 Ml Oral.susp 15 Ml PO PRN AFTMEALHC PRN Fluvoxamine Maleate 100 Mg Tablet 50 Mg PO DAILY07 Analgesic [place] (Methyl Salicylate/Menthol) 28 Gm Oint...g. 1 Will TP PRN Q6HRS PRN Milk Of Magnesia (Magnesium Hydroxide) 400 Mg/5 Ml Oral.susp 400 Mg PO PRN QHS PRN Acetaminophen 500 Mg Tablet 650 Mg PO PRN Q6HRS PRN Gabapentin (Gabapentin) 100 Mg Capsule 200 Mg PO [id number] Gabapentin (Gabapentin) 100 Mg Capsule 100 Mg PO DAILY Reglan (Metoclopramide Hcl) 10 Mg Tablet 5 Mg PO TIDAC take with meals at 7am, 1pm, 5pm Pantoprazole Sodium 40 Mg Tablet.dr 40 Mg PO DAILY07 Seroquel (Quetiapine Fumarate) 25 Mg Tablet 37.5 Mg PO TID@0700,1700,2100 Miralax (Polyethylene Glycol 3350) 17 Gm Powd.pack 17 Gm PO DAILY07 Klor-Con M20 (Potassium Chloride) 20 Meq Tab.er.prt 20 Meq PO DAILY07 Sucralfate 1 Gm Tablet 1 Gm PO BID@0700,1700 Mirtazapine 15 Mg Tablet 15 Mg PO QHS Reglan (Metoclopramide Hcl) 10 Mg Tablet 5 Mg PO HS Alprazolam 0.5 Mg Tablet 0.5 Mg PO PRN Q6HRS PRN I have reviewed the current psychotropics carefully including drug interactions. Risk benefit ratio favors no change other than as noted in my dictated progress note. Diagnosis: Problems: (1) Anxiety disorder (2) Impulse control disorder (3) Major depressive disorder, recurrent episode (4) Panic disorder with agoraphobia and severe panic attacks (5) Obsessive compulsive disorder MELISSA BASHIR MD March 08, 2019 22:31
[2019-03-09] MEDS ORDERED: LURA40TA PO (02:28)
[2019-03-09 06:07] VITALS: BP 117/78
[2019-03-09] MEDS: SUCRALFATE 1 GM TABLET. PO SCH ×2 (07:52→16:37)
[2019-03-09] MEDS: PANTOPRAZOLE 40 MG TABLET. PO SCH (07:52)
[2019-03-09] MEDS: METOCLOPRAMIDE 5 MG TABLET PO SCH ×3 (07:52→16:37)
[2019-03-09] MEDS: LURASIDONE 40 MG TABLET. PO SCH (07:53)
[2019-03-09] MEDS: POTASSIUM CHLORIDE 20 MEQ TABLET.ER. PO SCH (07:54)
[2019-03-09] MEDS: GABAPENTIN 100 MG CAPSULE. PO SCH ×3 (07:54→21:14)
[2019-03-09] MEDS: QUEtiapine 25 MG TABLET. PO SCH (07:55)
[2019-03-09] MEDS: ALPRAZolam 0.5 MG TABLET PO PRN ×3 (07:55→21:14)
--- NOTE | 2019-03-09 11:26 | NUR ---
Pt is anxious asking for her PRN xanax first thing in the am even waiting at the nurses station for it. Nurse had to redirect pt to breakfast multiple times. Pt is compliant with medication and assessment. No agitation or aggression. No hallucinations or delusions noted.
[2019-03-09 16:47] VITALS: BP 119/78
--- NOTE | 2019-03-09 17:38 | PN ---
DATE: 03/08/2019 PSYCHIATRIC PROGRESS NOTE This late entry 03/08/2019 covers elements not covered in my initial note. SUBJECTIVE: I met with the patient in the evening of 03/08/2019 and at length in her room. The patient slept 7-1/2 hours previous night. She has been overall less anxious, but stated her son and significant other were unsure if she was ready to be transitioned back home. We have discussed outpatient followup and activities at great length. REVIEW OF SYSTEMS: No CV, , pulmonary, eye system symptoms on review. Denies GI symptoms. MENTAL STATUS EXAM: Reasonably oriented. Speech is coherent, abstraction fair, computation somewhat impaired, language function intact, attention span short. No suicidal or homicidal ideation. LABORATORY DATA: Reviewed. IMPRESSION: Unchanged from initial note. PLAN: No change from initial note. We will transition home to outpatient treatment possibly on 03/09/2019. MELSISA BASHIR MD DR: CARRILLO/praful JOB#: [id number] / [id number]
[2019-03-09] MEDS: TAMSULOSIN 0.4 MG CAP.ER.24H. PO SCH (21:14)
[2019-03-09] MEDS: MIRTAZAPINE 15 MG TABLET PO SCH (21:14)
--- NOTE | 2019-03-09 23:37 | PN ---
DATE: 03/09/2019 PSYCHIATRIC PROGRESS NOTE This note covers elements not covered in my template note. SUBJECTIVE: I met with the patient in the morning of 03/09/2019. Repeatedly the patient was asking for me to come back and visit with her again and again. She remains extremely anxious, apprehensive about discharge to outpatient ____. She is not sure how she would function staying at home all day since Sumit goes to work during the day. She did sleep reasonably the previous night. The patient does have some tremors and she is on Reglan, whether this could be contributing to it. We will defer to Dr. Duncan. REVIEW OF SYSTEMS: Positive for some tremors. No CV, , pulmonary, eye system symptoms on review. She is not having any GI symptoms. MENTAL STATUS EXAM: The patient is reasonably oriented. Speech is coherent, somewhat hesitant. She is obsessive, anxious. Abstraction fair, computation somewhat impaired, language function intact, attention span short. Mood and affect remains somewhat dysphoric, anxious, obsessive. No suicidal or homicidal ideation. LABORATORY DATA: Reviewed. IMPRESSION: Major depressive disorder in partial remission; obsessive-compulsive disorder; anxiety disorder, unspecified. Rest unchanged. PLAN: From a psychiatric standpoint, continue current her psychotropics. We have conferred with Sumit, her significant other who came to possibly discharge her. He does not feel comfortable taking her home. Social Service staff was unable to arrange outpatient followup arrangement on Monday since ____ perhaps, balance is best to postpone the discharge to early next week, Monday or Monday. Maintain her current psychotropics. Increase Seroquel and/or Luvox depending on her progress. MELISSA BASHIR MD DR: CARRILLO/praful JOB#: [id number] / [id number]
[2019-03-10 07:02] VITALS: BP 122/70
[2019-03-10] MEDS: METOCLOPRAMIDE 5 MG TABLET PO SCH ×3 (07:50→16:58)
[2019-03-10] MEDS: PANTOPRAZOLE 40 MG TABLET. PO SCH (07:50)
[2019-03-10] MEDS: SUCRALFATE 1 GM TABLET. PO SCH ×2 (07:51→16:58)
[2019-03-10] MEDS: GABAPENTIN 100 MG CAPSULE. PO SCH ×3 (07:52→20:06)
[2019-03-10] MEDS: LURASIDONE 40 MG TABLET. PO SCH (07:52)
[2019-03-10] MEDS: POTASSIUM CHLORIDE 20 MEQ TABLET.ER. PO SCH (07:52)
[2019-03-10] MEDS: ALPRAZolam 0.5 MG TABLET PO PRN ×2 (07:52→16:58)
--- NOTE | 2019-03-10 10:36 | NUR ---
Pt is anxious asking for her PRN xanax first thing in the am. Pt states "it works better on an empty stomach." Nurse had to redirect pt to breakfast. Pt is compliant with medication and assessment. No agitation or aggression. No hallucinations or delusions noted.
[2019-03-10 16:25] VITALS: BP 102/64
[2019-03-10] MEDS: TAMSULOSIN 0.4 MG CAP.ER.24H. PO SCH (20:06)
[2019-03-10] MEDS: MIRTAZAPINE 15 MG TABLET PO SCH (20:06)
--- NOTE | 2019-03-10 23:47 | PDOC ---
Exam Note: Edwin Note: Late entry for DOS 03/09/2019. Please also refer to the separate dictated note~for this date of service dictated separately.~Patient seen individually. Discussed the patient with Nursing staff reviewed the chart.~Reviewed interim history and current functioning. Reviewed vital signs,~Labs/ Radiology~and current medications noted below. Continue current treatment with the changes noted in the dictated addendum note Assessment: Vital Signs: Vital Signs Date Time Temp Pulse Resp B/P (MAP) Pulse Ox O2 Delivery O2 Flow Rate FiO2 03/10/19 16:25 97.6 96 20 102/64 (77) 95 03/07/19 15:49 Room Air I&O Intake and Output 03/10/19 06:59 Intake Total 480 ml Balance 480 ml Intake Oral 480 ml Current Medications: Meds: Current Medications Lactated Ringer's 1,000 ml @ 1,000 mls/hr Q1H IV Last administered on 02/21/19 02:06; Start 02/20/19 at 23:00; Stop 02/20/19 at 23:59; Status DC Cephalexin HCl (Keflex) 500 mg 1X ONCE PO Last administered on 02/21/19at 02:07; Start 02/21/19 at 00:30; Stop 02/21/19 at 00:31; Status DC Acetaminophen (Tylenol) 650 mg PRN Q6HRS PRN PO PAIN / TEMP Last administered on 02/28/19at 19:27; Start 02/21/19 at 06:00 Multi-Ingredient Ointment (Analgesic [place]) 1 will PRN QID PRN TP MUSCLE PAIN; Start 02/21/19 at 06:00 Al Hydroxide/Mg Hydroxide (Mylanta Plus Xs) 15 ml PRN AFTMEALHC PRN PO DYSPEPSIA Last administered on 03/06/19at 01:29; Start 02/21/19 at 06:00 Magnesium Hydroxide (Milk Of Magnesia) 2,400 mg PRN QHS PRN PO CONSTIPATION; Start 02/21/19 at 06:00 Alprazolam (Xanax) 0.5 mg PRN Q6HRS PRN PO ANXIETY / AGITATION Last administered on 03/10/19at 16:58; Start 02/21/19 at 06:15 Fluvoxamine Maleate (Luvox) 50 mg DAILY07 PO Last administered on 02/21/19 09:28; Start 02/21/19 at 07:00; Stop 02/21/19 at 09:32; Status DC Fluvoxamine Maleate (Luvox) 100 mg QHS PO Last administered on 02/26/19 19:59; Start 02/21/19 at 21:00; Stop 02/27/19 at 17:18; Status DC Mirtazapine (Remeron) 15 mg QHS PO Last administered on 03/10/19 20:06; Start 02/21/19 at 21:00 Quetiapine Fumarate (SEROquel) 37.5 mg TID@0700,1700,2100 PO Last administered on 02/21/19 09:27; Start 02/21/19 at 07:00; Stop 02/21/19 at 09:32; Status DC Gabapentin (Neurontin) 100 mg DAILY PO Last administered on 03/10/19 07:52; Start 02/21/19 at 09:00 Gabapentin (Neurontin) 200 mg BID@1300,2100 PO Last administered on 03/10/19 20:06; Start 02/21/19 at 13:00 Potassium Chloride (Klor-Con) 20 meq DAILY07 PO Last administered on 02/21/19 09:27; Start 02/21/19 at 07:00; Stop 02/21/19 at 09:32; Status DC Tamsulosin HCl (Flomax) 0.4 mg QHS PO Last administered on 03/10/19 20:06; Start 02/21/19 at 21:00 Metoclopramide HCl (Reglan) 5 mg TIDAC PO Last administered on 03/10/19 16:58; Start 02/21/19 at 07:30 Pantoprazole Sodium (Protonix) 40 mg DAILYAC PO Last administered on 03/10/19 07:50; Start 02/21/19 at 07:30 Sucralfate (Carafate) 1 gm BID@0700,1700 PO Last administered on 02/21/19 09:27; Start 02/21/19 at 07:00; Stop 02/21/19 at 09:32; Status DC Fluvoxamine Maleate (Luvox) 50 mg DAILY PO Last administered on 5/12/19at 07:52; Start 02/22/19 at 09:00 Potassium Chloride (Klor-Con) 20 meq DAILY PO Last administered on 03/10/19 07:52; Start 02/22/19 at 09:00 Quetiapine Fumarate (SEROquel) 37.5 mg TID PO Last administered on 02/22/19 19:33; Start 02/21/19 at 14:00; Stop 02/22/19 at 21:01; Status DC Sucralfate (Carafate) 1 gm BIDWMEALS PO Last administered on 03/10/19at 16:58; Start 02/21/19 at 17:00 Polyethylene Glycol (miraLAX) 17 gm PRN DAILY PRN PO CONSTIPATION; Start 02/21/19 at 10:15; Stop 02/21/19 at 10:15; Status DC Polyethylene Glycol (miraLAX) 17 gm PRN DAILY PRN PO CONSTIPATION Last administered on 03/06/19at 06:19; Start 02/21/19 at 10:05 Lurasidone HCl (Latuda) 20 mg DAILYWBKFT PO Last administered on 02/25/19at 08:48; Start 02/23/19 at 08:00; Stop 02/25/19 at 09:01; Status DC Lurasidone HCl (Latuda) 40 mg DAILYWBKFT PO Last administered on 02/28/19at 08:42; Start 02/26/19 at 08:00; Stop 02/28/19 at 09:02; Status DC Lurasidone HCl (Latuda) 60 mg DAILYWBKFT PO Last administered on 03/10/19 07:52; Start 03/01/19 at 08:00 Quetiapine Fumarate (SEROquel) 37.5 mg BID PO Last administered on 03/01/19 19:46; Start 02/23/19 at 09:00; Stop 03/01/19 at 21:01; Status DC Quetiapine Fumarate (SEROquel) 37.5 mg DAILY PO Last administered on 03/09/19at 07:55; Start 03/02/19 at 09:00; Stop 03/09/19 at 09:01; Status DC Metoclopramide HCl (Reglan) 5 mg STK-MED ONCE .ROUTE ; Start 02/21/19 at 09:00; Stop 02/23/19 at 18:20; Status DC Metoclopramide HCl (Reglan) 5 mg STK-MED ONCE .ROUTE ; Start 02/21/19 at 09:00; Stop 02/23/19 at 18:20; Status DC Metoclopramide HCl (Reglan) 5 mg STK-MED ONCE .ROUTE ; Start 02/21/19 at 09:00; Stop 02/23/19 at 18:20; Status DC Quetiapine Fumarate (SEROquel) 37.5 mg STK-MED ONCE .ROUTE ; Start 02/21/19 at 09:00; Stop 02/23/19 at 18:20; Status DC Sucralfate (Carafate) 1 gm STK-MED ONCE PO ; Start 02/21/19 at 09:00; Stop 02/23/19 at 18:20; Status DC Metoclopramide HCl (Reglan) 5 mg STK-MED ONCE .ROUTE ; Start 02/22/19 at 09:00; Stop 02/23/19 at 18:20; Status DC Metoclopramide HCl (Reglan) 5 mg STK-MED ONCE .ROUTE ; Start 02/22/19 at 09:00; Stop 02/23/19 at 18:20; Status DC Metoclopramide HCl (Reglan) 5 mg STK-MED ONCE .ROUTE ; Start 02/22/19 at 09:00; Stop 02/23/19 at 18:20; Status DC Metoclopramide HCl (Reglan) 5 mg STK-MED ONCE .ROUTE ; Start 02/23/19 at 09:00; Stop 02/23/19 at 18:20; Status DC Metoclopramide HCl (Reglan) 5 mg STK-MED ONCE .ROUTE ; Start 02/23/19 at 09:00; Stop 02/23/19 at 18:20; Status DC Metoclopramide HCl (Reglan) 5 mg STK-MED ONCE .ROUTE ; Start 02/23/19 at 09:00; Stop 02/23/19 at 18:20; Status DC Fluvoxamine Maleate (Luvox) 100 mg QHS PO Last administered on 03/10/19at 20:06; Start 02/27/19 at 21:00 Fluvoxamine Maleate (Luvox) 25 mg HS PO Last administered on 03/10/19at 20:06; Start 02/27/19 at 21:00 Active Scripts Active Reported Latuda (Lurasidone Hcl) 40 Mg Tablet 60 Mg PO DAILY Fluvoxamine Maleate 100 Mg Tablet 100 Mg PO QHS Flomax (Tamsulosin Hcl) 0.4 Mg Cap.er.24h 0.4 Mg PO QHS Maalox Advanced Suspension (Mag Hydrox/Aluminum Hyd/Simeth) 355 Ml Oral.susp 15 Ml PO PRN AFTMEALHC PRN Fluvoxamine Maleate 100 Mg Tablet 50 Mg PO DAILY07 Analgesic [place] (Methyl Salicylate/Menthol) 28 Gm Oint...g. 1 Will TP PRN Q6HRS PRN Milk Of Magnesia (Magnesium Hydroxide) 400 Mg/5 Ml Oral.susp 400 Mg PO PRN QHS PRN Acetaminophen 500 Mg Tablet 650 Mg PO PRN Q6HRS PRN Gabapentin (Gabapentin) 100 Mg Capsule 200 Mg PO [id number] Gabapentin (Gabapentin) 100 Mg Capsule 100 Mg PO DAILY Reglan (Metoclopramide Hcl) 10 Mg Tablet 5 Mg PO TIDAC take with meals at 7am, 1pm, 5pm Pantoprazole Sodium 40 Mg Tablet.dr 40 Mg PO DAILY07 Seroquel (Quetiapine Fumarate) 25 Mg Tablet 37.5 Mg PO TID@0700,1700,2100 Miralax (Polyethylene Glycol 3350) 17 Gm Powd.pack 17 Gm PO DAILY07 Klor-Con M20 (Potassium Chloride) 20 Meq Tab.er.prt 20 Meq PO DAILY07 Sucralfate 1 Gm Tablet 1 Gm PO BID@0700,1700 Mirtazapine 15 Mg Tablet 15 Mg PO QHS Reglan (Metoclopramide Hcl) 10 Mg Tablet 5 Mg PO HS Alprazolam 0.5 Mg Tablet 0.5 Mg PO PRN Q6HRS PRN I have reviewed the current psychotropics carefully including drug interactions. Risk benefit ratio favors no change other than as noted in my dictated progress note. Diagnosis: Problems: (1) Anxiety disorder (2) Impulse control disorder (3) Major depressive disorder, recurrent episode (4) Panic disorder with agoraphobia and severe panic attacks (5) Obsessive compulsive disorder MELISSA BASHIR MD March 10, 2019 23:47
--- NOTE | 2019-03-10 23:57 | NUR ---
Nursing note Pt not as anxious, not asking for xanax this pm. Denies complaints cooperative.
[2019-03-11 05:55] VITALS: BP 102/62
[2019-03-11] MEDS: PANTOPRAZOLE 40 MG TABLET. PO SCH (07:38)
[2019-03-11] MEDS: METOCLOPRAMIDE 5 MG TABLET PO SCH ×3 (07:44→16:17)
[2019-03-11] MEDS: SUCRALFATE 1 GM TABLET. PO SCH ×2 (07:44→16:17)
[2019-03-11] MEDS: POTASSIUM CHLORIDE 20 MEQ TABLET.ER. PO SCH (07:45)
[2019-03-11] MEDS: LURASIDONE 40 MG TABLET. PO SCH (07:45)
[2019-03-11] MEDS: GABAPENTIN 100 MG CAPSULE. PO SCH ×3 (07:46→19:36)
[2019-03-11 09:19] LABS: BASO % 1 % (0-3); EOS % 1 % (0-3); HEMATOCRIT 38.4 % (36.0-47.0); HEMOGLOBIN 12.5 g/dL (12.0-15.5); LYMPH # 0.9 x10^3/uL (1.0-4.8); LYMPH % 20 % (24-48); MEAN CORPUSCULAR HEMOGLOBIN 33 pg (25-35); MEAN CORPUSCULAR HGB CONC 33 g/dL (31-37); MEAN CORPUSCULAR VOLUME 101 fL (79-100); MONO # 0.4 x10^3/uL (0.0-1.1); MONO % 10 % (0-9); NEUT % 69 % (31-73); PLATELET COUNT 217 x10^3/uL (140-400); RED BLOOD COUNT 3.79 x10^6/uL (3.50-5.40); RED CELL DISTRIBUTION WIDTH 13.2 % (11.5-14.5); WHITE BLOOD COUNT 4.4 x10^3/uL (4.0-11.0)
[2019-03-11 09:34] LABS: ALBUMIN 3.5 g/dL (3.4-5.0); ALBUMIN/GLOBULIN RATIO 0.9 (1.0-1.7); CALCIUM 9.1 mg/dL (8.5-10.1); CREATININE 0.8 mg/dL (0.6-1.0); GFR 70.3; POTASSIUM 3.9 mmol/L (3.5-5.1); TOTAL BILIRUBIN 0.3 mg/dL (0.2-1.0); TOTAL PROTEIN 7.2 g/dL (6.4-8.2)
[2019-03-11] MEDS: ALPRAZolam 0.5 MG TABLET PO PRN ×2 (09:42→20:06)
--- NOTE | 2019-03-11 10:41 | NUR ---
Pt is anxious at times and will ask for PRN Xanax- Pt encouraged to attend group to work on her coping skills in addition to receiving her xanax. No agitation or aggression. No hallucinations or delusions noted. No SI/HI.
--- NOTE | 2019-03-11 12:52 | PN ---
DATE: 03/10/2019 SUBJECTIVE: The patient was seen today, met with the staff, chart reviewed. The patient continues to have increased anxiety, involuntary movements of upper extremities, and also tremors. Staff reports no other major behavior problems. The patient apparently has severe agoraphobia. OBSERVATION: VITAL SIGNS: Temperature 97.6, blood pressure 102/64, pulse 96, respirations 20, O2 sat 95%. The patient's sleep and appetite have improved. MEDICATIONS: Reviewed. Currently, she is on Latuda 60 mg daily, fluvoxamine 25 mg at night plus 100 mg at night and 50 mg daily, mirtazapine 15 mg at night, gabapentin 200 mg b.i.d. and 100 mg daily, Xanax 0.5 mg q.6 hours p.r.n. The patient is not having any side effects. LABORATORY DATA: The patient's lab reviewed. ASSESSMENT: Major depressive disorder, recurrent, moderate; panic disorder with agoraphobia, obsessive compulsive disorder. PLAN: To continue with the treatment. Continue to monitor side effects to medications. LENGTH OF STAY: 7-10 days. ELLIS HASTINGS MD DR: FEDERICO/praful JOB#: [id number] / [id number]
[2019-03-11 16:33] VITALS: BP 113/74
[2019-03-11] MEDS: TAMSULOSIN 0.4 MG CAP.ER.24H. PO SCH (19:36)
[2019-03-11] MEDS: MIRTAZAPINE 15 MG TABLET PO SCH (19:36)
--- NOTE | 2019-03-11 23:03 | NUR ---
Nursing note: Assumed care of pt in the day room. She was watching a movie, calm and pleasant. Med and assessment compliant. She asked for a xanax for anxiety which I gave as prescribed.
[2019-03-12 05:41] VITALS: BP 108/68
[2019-03-12] MEDS: MAG HYDROX/AL HYDROX/SIMETH 30 ML ORAL.SUSP PO PRN (05:58)
[2019-03-12] MEDS: METOCLOPRAMIDE 5 MG TABLET PO SCH ×2 (08:10→12:00)
[2019-03-12] MEDS: PANTOPRAZOLE 40 MG TABLET. PO SCH (08:10)
[2019-03-12] MEDS: SUCRALFATE 1 GM TABLET. PO SCH (08:10)
[2019-03-12] MEDS: POTASSIUM CHLORIDE 20 MEQ TABLET.ER. PO SCH (08:11)
[2019-03-12] MEDS: LURASIDONE 40 MG TABLET. PO SCH (08:11)
[2019-03-12] MEDS: GABAPENTIN 100 MG CAPSULE. PO SCH ×2 (08:26→12:01)
[2019-03-12] MEDS: ALPRAZolam 0.5 MG TABLET PO PRN ×2 (08:27→14:34)
--- NOTE | 2019-03-12 10:21 | NUR ---
Pt is anxious asking for her PRN xanax first thing in the am. Pt states "it works better on an empty stomach." Nurse had to redirect pt to breakfast. Pt is compliant with medication and assessment. No agitation or aggression. No hallucinations or delusions noted. Pt attended group this am.
--- NOTE | 2019-03-12 13:19 | PN ---
DATE: 03/11/2019 SUBJECTIVE: The patient was seen today, met with the staff, chart reviewed. The patient continues to be anxious, having generalized involuntary movements and also increased hand tremors. Staff reports no major problems. Mostly she is withdrawn, isolative, fearful and also has some psychomotor retardation. OBSERVATION: VITAL SIGNS: Temperature 97.3, blood pressure 102/62, pulse 94, respirations 16, O2 sat 93%. Slept about 9 hours last night. Her appetite fair. MEDICATIONS: The patient's current medications include Latuda 60 mg daily, fluvoxamine 25 mg at night and 100 mg at night. She is also on fluvoxamine 50 mg daily, mirtazapine 15 mg at night, gabapentin 200 mg b.i.d. and 100 mg daily, and Xanax 0.5 mg q. 6 hours p.r.n. The patient is not having any side effects. ASSESSMENT: 1. Major depressive disorder, recurrent, moderate. 2. Panic disorder with agoraphobia. 3. Obsessive compulsive disorder. PLAN: To continue with the treatment. LENGTH OF STAY: 7 days. ELLIS HASTINGS MD DR: FEDERICO/praful JOB#: [id number] / [id number]
--- NOTE | 2019-03-12 14:41 | NUR ---
[facility] Social Work Discharge Planning Form Patient Name MORENA TRAN Admit Date: 02/21/19 DISCHARGE PLAN Discharge Destination: Home with significant other Care Assessment: N/A Level II Assessment: N/A Transportation: Pt S.O. to pick pt up around the 1600 visitation time Special Instructions/Notes: Please fax medication list and any other orders to the fax numbers listed below. Get outside and participate in activities! You are not to sit at home all day. [facility] has a day program that will allow for meals and medications up to 5x a day or visit with family a couple times a week! If these behaviors continue, it is recommended that Morena be discharge to an Assisted Living facility so that her medications can be monitored and anxiety under control. DISCHARGE TO HOME: Address: [address]; [place] [address] Responsible [employer]: Pt is a self-sign Pharmacy: Contact Information: Psychiatrist/Mental Health Follow Up: Dr. Peterson's office is closed for the week. Will be able to schedule appt and call with the date and time next week. Psychology/Counselor: Nikita Lucas Contact Information: [address], [address]; [place] [address] Appointment: 03/21/19 @ 0900 Primary Care Follow Up: Dr. Hendricks Contact Information: [address], [place] [address] Appointment: 03/19/19 @ 3:40 Addendum: 03/12/19 at 1510 by BECKY BROWN [facility] is pt preferred pharmacy in [place], [place]
--- NOTE | 2019-03-12 14:50 | NUR ---
1349: Pt asked nurse to "listen to my heart." Pt stated she felt like her heart was racing and felt shaky. VS: 90/55, 132, 98.0, 18. Stat EKG. Sinus tach @ 107. Pt stated she felt anxious about discharging today. No diaphoresis, no N/V, no dizziness, no light headedness. Pt is A & O and neurologically at her baseline. EKG's are similar. 1429: VS: 109/70 96 94% pt is resting comfortably in bed and stated she felt better. PRN xanax given as pt stated she still "feels a little anxious."
--- NOTE | 2019-03-12 16:14 | NUR ---
Transition Record was faxed to follow-up provider with the following elements: Reason for admission, procedures, tests, principal diagnosis, pending studies, patient instructions, 22/05 contact information for unit, phone number to obtain pending test results, plan for follow-up care, physician follow-up, advanced directive information, and medication list with dose, duration and instructions. This information was included in the following documents: History and physical, lab results, study results, progress notes, social work planning form, DC instruction form, patient visit summary, and medication reconciliation form. Date & time record faxed: [phone], [phone], [phone] on 03/12/19 Record faxed to: Dr. Peterson, Dr. Hendricks, Dr. Lucas Record discussed with/ report given to: Serena Arana. Reviewed medications dispensing instructions (particulary r/t xanax), follow up instructions and called medications into [facility]-spoke to Josephine.
--- NOTE | 2019-03-12 17:47 | EKG ---
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
--- NOTE | 2019-03-15 21:23 | DS ---
DATE OF DISCHARGE: 03/12/2019 FINAL DIAGNOSES: AXIS I: 1. Major depressive disorder, recurrent. 2. Panic disorder with agoraphobia. 3. Anxiety disorder unspecified. 4. Obsessive-compulsive disorder. 5. Cognitive impairment, mild. AXIS II: None. AXIS III: Gastroparesis, prolonged QT interval, history of malignant neoplasm, chronic constipation, recurrent UTI. REASON FOR ADMISSION: This 73-year-old female who was admitted to [facility] inpatient through the Emergency Room because of increased depression; anxiety, panic attack, feeling hopeless, helpless, worthless and also other phobic symptoms and failed outpatient treatment. Walk-in. HISTORY OF PRESENT ILLNESS: The patient has a long history of depression and anxiety with multiple psychiatric hospitalizations and also outpatient treatment in the past and also seeing a therapist psychologist for counseling. The patient admits her problems have gotten worse lately and not able to function well. The patient also admitted to having some cognitive impairment and also abusing Xanax at times since she has been on Xanax for a long period of time. The patient is also ruminating over the past. HOSPITAL COURSE: The patient had a physical exam, routine lab work including CBC, chem profile, urinalysis, which were all within the normal range, except slight increase in MCV. The patient's lipid profile was abnormal cholesterol was 207, LDL 137, HDL 58. The patient's creatinine kinase was 225. The patient did fairly well during her stay. The patient was continued on her medications including Latuda 60 mg daily, fluoxetine 25 mg at night and 100 mg at night, also fluvoxamine 50 mg daily, mirtazapine 15 mg at night, gabapentin 200 mg b.i.d. and 100 mg daily and Xanax 0.5 mg q. 6 hours p.r.n. The patient did not have any side effects. The patient participated in all the activities, able to gain some insight into her problems. The patient did not have any fall during the stay here. AFTERCARE PLAN: The patient at the time of discharge was medically stable and was able to gain some insight to her problems. The patient is returning home with the recommendation to continue the above medications and continue follow up with the psychologist and also primary care doctor. ELLIS HASTINGS MD DR: FEDERICO/praful JOB#: [id number] / [id number]
== END 2019-03-12 16:17 | disposition home or self-care (01) | DRG 885 ==
LOC: ER 22:15 → GEROPSY 02-21 05:31
PROVIDERS: ADMIT Psychiatry & Neurology Psychiatry; ATTEND Psychiatry & Neurology Psychiatry
DX: F32.3 Major depressive disorder, single episode, severe with psychotic features (principal); F40.01 Agoraphobia with panic disorder; F42.9 Obsessive-compulsive disorder, unspecified; F63.9 Impulse disorder, unspecified; G47.00 Insomnia, unspecified; I10 Essential (primary) hypertension; I45.81 Long QT syndrome; K21.9 Gastro-esophageal reflux disease without esophagitis; K31.84 Gastroparesis; Z96.641 Presence of right artificial hip joint; F03.90 Unspecified dementia, unspecified severity, without behavioral disturbance, psychotic disturbance, mood disturbance, and anxiety; K59.09 Other constipation; Z79.899 Other long term (current) drug therapy; Z85.3 Personal history of malignant neoplasm of breast; Z87.440 Personal history of urinary (tract) infections
CPT/HCPCS: 36415; 71045; 74018; 80048; 80053; 80061; 80076; 80307; 81001; 82306; 82550; 83036; 83540; 83550; 83690; 83735; 83880; 84436; 84443; 84480; 84484; 85025; 85379; 85610; 85651; 85730; 86592; 87086; 93005; 96360; J7120; J8597; 99285-25